=== PATIENT | male | born 1980 | race Caucasian/White ===

== ENCOUNTER 2020-08-11 13:08 | Emergency (ER) | payer BC, SELFPAY ==
[2020-08-11 14:16] VITALS: BP 149/93; PULSE 92; RESP 18; TEMP 36.9; O2SAT 100; BMI 26.5
--- NOTE | 2020-08-11 16:47 | XR_ITS ---
EXAMINATION: 1. LEFT ANKLE. 2. LEFT LEG. CLINICAL INFORMATION: Pain. Wound. COMPARISON: None TECHNIQUE: 1 left ankle. 3 views 2. Left leg. 2 views FINDINGS: 1. Left ankle. No fracture. No dislocation. Ankle mortise is congruent. 2. Left leg. No fracture or bone destruction. No abnormal periosteal reaction. There are spurs at the posterior calcaneus at the plantar surface of the calcaneus. No air in the soft tissues. There is no radiopaque foreign body. XR/XR tibia fibula LT 2V IMPRESSION: 1. Left ankle. No acute abnormality. 2. Left leg. No acute abnormality.
--- NOTE | 2020-08-11 16:47 | XR_ITS ---
EXAMINATION: 1. LEFT ANKLE. 2. LEFT LEG. CLINICAL INFORMATION: Pain. Wound. COMPARISON: None TECHNIQUE: 1 left ankle. 3 views 2. Left leg. 2 views FINDINGS: 1. Left ankle. No fracture. No dislocation. Ankle mortise is congruent. 2. Left leg. No fracture or bone destruction. No abnormal periosteal reaction. There are spurs at the posterior calcaneus at the plantar surface of the calcaneus. No air in the soft tissues. There is no radiopaque foreign body. XR/XR ankle LT min 3V IMPRESSION: 1. Left ankle. No acute abnormality. 2. Left leg. No acute abnormality.
[2020-08-11 18:43] LABS: MANUAL DIFF FLAG NO
[2020-08-11 18:46] LABS: Basophils Percent Auto 0.6 % (0-2); Eosinophils Absolute Auto 0.2 X10*3/uL (0.0-0.4); Eosinophils Percent Auto 2.6 % (0-4); Hematocrit 40.5 % (42-52); Hemoglobin 14.1 g/dl (14.0-18.0); Imm Gran Abs Auto 0.02 X10*3/uL (0.00-0.03); Imm Gran Pct Auto 0.3 % (0.0-0.4); Lymphocytes Absolute Auto 2.2 X10*3/uL (1.2-4.9); Lymphocytes Percent Auto 30.5 % (20-40); Mean Corpuscular HGB Conc 34.8 g/dl (31.0-36.0); Mean Corpuscular Hemoglobin 28.4 pg (27.0-33.0); Mean Corpuscular Volume 81.7 fL (80-98); Mean Platelet Volume 10.3 fL (9.4-12.4); Monocytes Absolute Auto 0.4 X10*3/uL (0.1-1.2); Monocytes Percent Auto 5.7 % (2-11); Neutrophils Absolute Auto 4.3 X10*3/uL (2.0-8.3); Neutrophils Percent Auto 60.3 % (45-73); Platelet Count 181 X10*3/uL (160-400); Red Blood Count 4.96 X10*6/uL (4.60-5.80); Red Cell Distribution Width 12.7 % (11.0-16.0); White Blood Count 7.2 X10*3/uL (4.8-10.8)
[2020-08-11 19:09] LABS: Alanine Aminotransferase 26 U/L (0-40); Alkaline Phosphatase 112 U/L (39-117); Anion Gap 12 (12-20); Aspartate Amino Transferase 17 U/L (5-37); Bilirubin Total 0.5 mg/dL (0.0-1.0); Blood Urea Nitrogen 10 mg/dL (9-16); Calcium 8.6 mg/dL (8.4-10.2); Carbon Dioxide 26 mmol/L (22-29); Chloride 104 mmol/L (96-108); Creatinine Clr Calc Pharmacy 130.9; Estimated Glomerular Filt Rate > 60; Glucose Random 288 mg/dL (60-115); Potassium 3.8 mmol/l (3.3-5.1); Sodium 138 mmol/L (135-145); Total Protein 7.4 g/dL (6.5-8.0)
--- NOTE | 2020-08-11 19:33 | ED_ITS ---
HPI - Extremity Injury (Lower) General Chief Complaint: Extremity Injury, Lower Stated Complaint: cut on lt hammond ?infection Time Seen by Provider: 08/11/20 16:47 Source: patient Mode of arrival: ambulatory Limitations: no limitations History of Present Illness HPI Narrative: 40-year-old male who reports he has a history of diabetes who presents with complaint of left ankle pain and left hammond redness/swelling for t he past 5 days. States he was going upstairs misstepped rolled his ankle and hit the front of the hammond on the stair trim causing abrasion which he subsequently scratched and now is red and swollen with pain. He denies any fever or chills. Denies any other injury. Onset (ago): day(s) (5 days ago ) Place: home Severity: moderate Relieving factors: nothing Exacerbating factors: nothing Context: direct blow Other symptoms: none Treatments prior to arrival: cold therapy and bandage Related Data Previous Rx's Medication Instructions Recorded cephalexin [Keflex] 500 mg PO Q8H 7 Days #21 cap 08/11/20 doxycycline monohydrate 100 mg PO BID 10 Days #20 cap 08/11/20 Allergies Allergy/AdvReac Type Severity Reaction Status Date / Time No Known Allergies Allergy Unverified 05/02/20 16:58 [No Known Allergies*] Review of Systems Review of Systems: Constitutional: No Weight loss, No Fever, No Chills, No Night Sweats, No Fatigue, No Malaise ENT/Mouth: No Hearing loss, No Ear Pain, No Nasal Congestion, No Sinus Pain, No Hoarseness, No sore throat, No Rhinorrhea Eyes: No Eye Pain, No Swelling, No Redness, No Foreign Body, No Discharge, No Vision Changes Cardiovascular: No Chest Pain, No SOB, No Dyspnea on Exertion, No Orthopnea, No Edema, No Palpitations Respiratory: No Cough, No Sputum, No Wheezing, No Smoke Exposure, No Dyspnea Gastrointestinal: No Nausea, No Vomiting, No Diarrhea, No Constipation, No abdominal Pain, No Hematochezia, No Melena Genitourinary: no irregular bleeding, No Dysuria, No Urinary Frequency, No Hematuria, No Urinary Incontinence, No Urgency, No Flank Pain Musculoskeletal: No joint pain, No Myalgias, No Joint Swelling, as noted in HPI Skin: No Skin Lesions, No rash Neuro: No Weakness, No Numbness, No Paresthesias, No Loss of Consciousness, No Dizziness, No Headache Psych: No Social Issues Heme/Lymph: No Bruising, No Bleeding,No Lymphadenopathy Endocrine: No Polyuria, No Polydipsia, No Temperature Intolerance Yes all othe r systems are reviewed and are negative [facility], [facility] Social History Social History Alcohol intake: never Smoking Status: Never smoker Use of substances other than those prescribed or required for medical reasons: No Advance Directives: No Advance Directives Information Provided: Yes Physical Exam Vital Signs: Vital Signs: Last Vital Signs Temp 98.5 F 08/11/20 14:16 Pulse 92 08/11/20 14:16 Resp 18 08/11/20 14:16 BP 149/93 H 08/11/20 14:16 Pulse Ox 100 08/11/20 14:16 Body Mass Index 26.5 Reviewed Const: General: cooperative and healthy appearing; No acute distress or intoxicated appearing Nutritional Appearance: average body habitus Orientation/consciousness: patient oriented x3 HENMT: Head: Yes normal to inspection Ears: hearing grossly normal bilaterally Eyes: General: appearance normal, both eyes and all related structures Visual Freeman: normal visual freeman by confrontation Neck: Neck: Yes normal visual inspection and No tender Thyroid: Thyroid normal Chest: Chest palpation & inspection: normal inspection of the chest Resp: Effort & Inspection: normal respiratory effort Auscultation: clear to auscultation bilaterally Cardio: Jugular venous distension: no JVD Rhythm: regular rhythm Heart sounds: S1 normal heart sound present and S2 normal heart sound present GI: Inspection: Yes normal to inspection Percussion: Yes normal to percussion Auscultation: normal bowel sounds : General: Yes no CVA tenderness Back/Spine/Pelvis: Back: no CVA tenderness Skin: General skin exam: no rashes or lesions noted Neuro: General: patient oriented x3 Extrem: Other: General: Yes normal to inspection Course Course Course Narrative: Labs without leukocytosis. Vitals stable. X-ray without any acute abnormality. AP of infected abrasion to the left hammond as well as left an kle sprain given crutches. Will RICE, start oral antibiotic given 1st dose here and recheck in 2 days. MDM - Extremity Injury (Lower) Lab Data Result diagrams: 08/11/20 18:32 08/11/20 18:32 Labs: Lab Results 08/11/20 08/11/20 08/11/20 Range/Units 18:32 18:32 18:32 WBC 7.2 (4.8-10.8) X10*3/uL RBC 4.96 (4.60-5.80) X10*6/uL Hgb 14.1 (14.0-18.0) g/dl Hct 40.5 L (42-52) % MCV 81.7 (80-98) fL MCH 28.4 (27.0-33.0) pg MCHC 34.8 (31.0-36.0) g/dl RDW 12.7 (11.0-16.0) % Plt Count 181 (160-400) X10*3/uL MPV 10.3 (9.4-12.4) fL Immature Gran % (Auto) 0.3 (0.0-0.4) % Neut % (Auto) 60.3 (45-73) % Lymph % (Auto) 30.5 (20-40) % [place] % (Auto) 5.7 (2-11) % Eos % (Auto) 2.6 (0-4) % Baso % (Auto) 0.6 (0-2) % Lymph # (Auto) 2.2 (1.2-4.9) X10*3/uL [place] # (Auto) 0.4 (0.1-1.2) X10*3/uL Eos # (Auto) 0.2 (0.0-0.4) X10*3/uL Baso # (Auto) 0.0 (0.0-0.2) X10*3/uL Abs Immat Gran (auto) 0.02 (0.00-0.03) X10*3/uL Absolute Neuts (auto) 4.3 (2.0-8.3) X10*3/uL Absolute Nucleated RBC 0.000 (0.0-0.012) X10*3/uL Nucleated RBC % (auto) 0.0 (0.0-0.2) /100WBC Sodium 138 (135-145) mmol/L Potassium 3.8 (3.3-5.1) mmol/l Chloride 104 (96-108) mmol/L Carbon Dioxide 26 (22-29) mmol/L Anion Gap 12 (12-20) BUN 10 (9-16) mg/dL Creatinine 0.79 (0.5-1.4) mg/dL Estim Creat Clear Calc 130.9 Estimated GFR > 60 Random Glucose 288 H (60-115) mg/dL Lactic Acid 1.0 (0.5-2.0) mmol/L Calcium 8.6 (8.4-10.2) mg/dL Total Bilirubin 0.5 (0.0-1.0) mg/dL AST 17 (5-37) U/L ALT 26 (0-40) U/L Alkaline Phosphatase 112 (39-117) U/L Total Protein 7.4 (6.5-8.0) g/dL Albumin 4.0 (3.5-5.0) g/dL Discharge Plan Discharge Clinical Impression: Ankle sprain and strain, Cellulitis of anterior lower leg Patient Disposition: Home, Self-Care Instructions: Ankle Sprain (ED), Cellulitis (ED) Additional Instructions: Warm compresses Take medication as prescribed Return in 2 days for recheck Return sooner if any concerns or worsening symptoms including worsening redness, swelling, pain, fever, discharge Thank you Prescriptions: New doxycycline monohydrate 100 mg capsule 100 mg PO BID 10 Days Qty: 20 RF: 0 cephalexin [Keflex] 500 mg capsule 500 mg PO Q8H 7 Days Qty: 21 RF: 0 Referrals: Dung Hall NP [Emergency Midlevel Provider] - 2 days (Wound check)
[2020-08-11] MEDS: cephALEXin 500 MG CAPSULE PO (19:37)
== END 2020-08-11 19:49 | disposition home or self-care (01) ==
PROVIDERS: Nurse Practitioner Primary Care; Emergency Provider Emergency Medicine; PCP Physician Assistant
DX: S93.402A Sprain of unspecified ligament of left ankle, initial encounter (principal); L03.116 Cellulitis of left lower limb; M25.572 Pain in left ankle and joints of left foot; X50.1XXA Overexertion from prolonged static or awkward postures, initial encounter; Y93.9 Activity, unspecified; Y92.9 Unspecified place or not applicable; Y99.9 Unspecified external cause status
CPT/HCPCS: 36415; 73590; 73610; 80053; 83605; 85025; 87040; 99284

== ENCOUNTER 2020-08-13 12:58 | Emergency (ER) | payer BC, SELFPAY ==
[2020-08-13 13:47] VITALS: BP 137/92; PULSE 100; RESP 14; TEMP 36.6; O2SAT 99; BMI 25.8
--- NOTE | 2020-08-13 14:29 | PC.NURSE ---
ALERT, AMBULATORY WITH STEADY GAIT, CHANGING IN TO [facility]OS[facility] FOR EXAM
--- NOTE | 2020-08-13 15:47 | ED.WOUNDLAC ---
HPI - Wound/Laceration General Chief Complaint: Wound/Laceration Stated Complaint: leg infection? Time Seen by Provider: 08/13/20 14:56 History of Present Illness HPI narrative: Patient was seen here 2 days ago for a cellulitis of the left lower leg returns for recheck and says it may have improved mildly but is still swollen and painful and red, he is taking his antibiotics he denies fever chills Related Data Previous Rx's Medication Instructions Recorded cephalexin [Keflex] 500 mg PO Q8H 7 Days #21 cap 08/11/20 doxycycline monohydrate 100 mg PO BID 10 Days #20 cap 08/11/20 Allergies Allergy/AdvReac Type Severity Reaction Status Date / Time No Known Allergies Allergy Unverified 05/02/20 16:58 [No Known Allergies*] Review of Systems Review of Systems: No fever no chills no dizziness no weakness no chest pain no shortness of breath no calf pain no calf swelling PMFSH Past Medical History Attestation statement: The following information was validated with the patient. Medical History (Updated 08/13/20 @ 16:11 by NURA Holman) NIDDY (non-insulin dependent diabetes mellitus in young) Social History Social History Alcohol intake: never Smoking Status: Never smoker Advance Directives: No Advance Directives Information Provided: Yes Physical Exam Vital Signs: Vital Signs: Last Vital Signs Temp 98 F 08/13/20 13:47 Pulse 100 08/13/20 13:47 Resp 14 08/13/20 13:47 BP 137/92 H 08/13/20 13:47 Pulse Ox 99 08/13/20 13:47 Body Mass Index 25.8 General appearance no acute distress Head is normocephalic atraumatic The neck is supple Respiratory no acute distress Extremities the left lower leg has an area of redness, mild induration, mild fluctuance with a scab at the center and some surrounding erythema, there is no calf tenderness or swelling there is no lymphangitis there is no impairment of range of motion at ankle or knee Course Course Course Narrative: Procedure note left anterior lower leg cellulitis/abscess Area is cleansed with Betadine Anesthesia 8 cc of 1% lidocaine A small incision was made and a small amount of pus and clear fluid drained along with some bloody fluid, packing was placed and dressing was placed and patient tolerated procedure well Discharge Plan Discharge Clinical Impression: Abscess Patient Disposition: Home, Self-Care Additional Instructions: Continue your antibiotics I drained a small amount of pus and watery fluid from the wound and hopefully it will get better quickly Return to ER in 2 days for packing removal and wound check Return any time for spreading redness, worse pain and swelling, fever, any sign of worsening infection or any concerns Prescriptions: No Action doxycycline monohydrate 100 mg capsule 100 mg PO BID 10 Days Qty: 20 RF: 0 cephalexin [Keflex] 500 mg capsule 500 mg PO Q8H 7 Days Qty: 21 RF: 0 Stand Alone Forms: Work/School Release Interventions: ED Discharge Assessment Last Done: 08/13/20 16:32 Discharge Date/Time: 08/13/20 16:30
[2020-08-13] MEDS: Lidocaine HCl 1 % MPF 5 ML VIAL SUBCUT ×2 (15:51)
== END 2020-08-13 16:30 | disposition home or self-care (01) ==
PROVIDERS: Emergency Provider Emergency Medicine Emergency Medical Services; PCP Physician Assistant
DX: L02.416 Cutaneous abscess of left lower limb (principal); M79.605 Pain in left leg; Z79.899 Other long term (current) drug therapy
CPT/HCPCS: 10060; 99283; 99284

== ENCOUNTER 2020-08-15 09:40 | Emergency (ER) | payer BC, SELFPAY ==
[2020-08-15 09:46] VITALS: BP 138/87; PULSE 100; RESP 18; TEMP 36.6; O2SAT 100; BMI 25.8
--- NOTE | 2020-08-15 09:59 | ED.RECABL ---
HPI - Recheck/Abnormal Lab/Rx General Chief Complaint: Skin/Abscess/Foreign Body Stated Complaint: wound recheck Time Seen by Provider: 08/15/20 09:57 Source: patient Mode of arrival: ambulatory Limitations: no limitations History of Present Illness HPI narrative: Here for wound recheck feels better. Here to get packing removed which he has placed 2 days ago. States the swelling and redness has decreased. He is still taking Keflex and doxycycline with additional 6 days left. MD complaint: wound re-check Initial visit for: abscess Symptoms since prior visit: improved Associated symptoms: none Treatments prior to arrival: heat therapy and dressings Related Data Previous Rx's Medication Instructions Recorded cephalexin [Keflex] 500 mg PO Q8H 7 Days #21 cap 08/11/20 doxycycline monohydrate 100 mg PO BID 10 Days #20 cap 08/11/20 Allergies Allergy/AdvReac Type Severity Reaction Status Date / Time No Known Allergies Allergy Verified 08/15/20 09:48 [No Known Allergies*] Review of Systems Review of Systems: Constitutional: No Weight loss, No Fever, No Chills, No Night Sweats, No Fatigue, No Malaise ENT/Mouth: No Hearing loss, No Ear Pain, No Nasal Congestion, No Sinus Pain, No Hoarseness, No sore throat, No Rhinorrhea, No Swallowing Difficulty Eyes: No Eye Pain, No Swelling, No Redness, No Foreign Body, No Discharge, No Vision Changes Cardiovascular: No Chest Pain, No SOB, No Dyspnea on Exertion, No Orthopnea, No Edema, No Palpitations Respiratory: No Cough, No Sputum, No Wheezing, No Smoke Exposure, No Dyspnea Gastrointestinal: No abdominal Pain Genitourinary: No Dysuria Musculoskeletal: No joint pain, No Myalgias, No Joint Swelling Skin: No Skin Lesions, No rash Neuro: No Weakness, No Numbness, No Paresthesias, No Loss of Consciousness Psych: No Social Issues Heme/Lymph: No Bruising, No Bleeding,No Lymphadenopathy Endocrine: No Polyuria, No Polydipsia, No Temperature Intolerance Yes all other systems are reviewed and are negative [facility] Past Medical History Medical History (Updated 08/15/20 @ 10:12 by Dung Hall NP) NIDDY (non-insulin dependent diabetes mellitus in young) Social History Social History Alcohol intake: never Smoking Status: Never smoker Advance Directives: No Advance Directives Information Provided: No Physical Exam Vital Signs: Vital Signs: Last Vital Signs Temp 97.8 F 08/15/20 09:46 Pulse 100 08/15/20 09:46 Resp 18 08/15/20 09:46 BP 138/87 08/15/20 09:46 Pulse Ox 100 08/15/20 09:46 Body Mass Index 25.8 Reviewed Const: General: cooperative and healthy appearing; No acute distress or intoxicated appearing Nutritional Appearance: average body habitus Orientation/consciousness: patient oriented x3 Resp: Auscultation: clear to auscultation bilaterally Cardio: Rate: regular rate Rhythm: regular rhythm Heart sounds: S1 normal heart sound present and S2 normal heart sound present : General: Yes no CVA tenderness Back/Spine/Pelvis: Back: no CVA tenderness Skin: General skin exam: no rashes or lesions noted Neuro: General: patient oriented x3 Extrem: Other: General: Yes normal to inspection Course Course Course Narrative: Here for recheck reports feels much better the redness and swelling has significantly decreased. He is currently on p.o. antibiotics with 6 days remaining. No fever, chills. Again he overall reports feeling better and comparison to previous evaluation does appear to be getting better with retracting erythema. Advise for wound center follow-up given his history. Return instructions provided. Discharge Plan Discharge Clinical Impression: Visit for wound check Patient Disposition: Home, Self-Care Instructions: Abscess Follow-up (ED) Additional Instructions: Warm compresses Wash with soap and water Continue take antibiotic as prescribed Return if any worsening in symptoms or concerns Otherwise follow-up with her primary care doctor/wound care at [facility] for sequential monitoring Thank you Follow-up in the next 1 week [facility] [phone] [facility] [address] [place] [address] Prescriptions: No Action doxycycline monohydrate 100 mg capsule 100 mg PO BID 10 Days Qty: 20 RF: 0 cephalexin [Keflex] 500 mg capsule 500 mg PO Q8H 7 Days Qty: 21 RF: 0
== END 2020-08-15 10:24 | disposition home or self-care (01) ==
PROVIDERS: Emergency Provider Emergency Medicine Emergency Medical Services; PCP Physician Assistant
DX: Z48.00 Encounter for change or removal of nonsurgical wound dressing (principal)
CPT/HCPCS: 99283

== ENCOUNTER 2021-01-10 06:39 | Outpatient (REF) | payer OTHER, SELFPAY ==
--- NOTE | ~2021-01-10 | XR_ITS ---
EXAMINATION: XR KNEE, RIGHT CLINICAL INFORMATION: Pain. COMPARISON: None TECHNIQUE: Four views of the right knee. FINDINGS: Bones and soft tissues are normal. No fracture or dislocation. There is a minimal joint effusion. Alignment is anatomic. An enthesophyte arises from the upper pole of the patella. Joint spaces are well maintained. No abnormal soft tissue calcification. XR/XR knee LT 4V IMPRESSION: A minimal right knee joint effusion is seen. The examination is otherwise unremarkable. EXAMINATION: XR KNEE, LEFT CLINICAL INFORMATION: Pain. COMPARISON: None TECHNIQUE: AP, lateral, tunnel, and sunrise views of the left knee. FINDINGS: Bones and soft tissues are normal. No fracture or dislocation. There is a minimal joint effusion. Alignment is anatomic. Joint spaces are well maintained. An enthesophyte arises from the upper pole of the patella. No abnormal soft tissue calcification. IMPRESSION: A minimal left knee joint effusion is seen. The examination is otherwise unremarkable.
--- NOTE | ~2021-01-10 | XR_ITS ---
EXAMINATION: XR KNEE, RIGHT CLINICAL INFORMATION: Pain. COMPARISON: None TECHNIQUE: Four views of the right knee. FINDINGS: Bones and soft tissues are normal. No fracture or dislocation. There is a minimal joint effusion. Alignment is anatomic. An enthesophyte arises from the upper pole of the patella. Joint spaces are well maintained. No abnormal soft tissue calcification. XR/XR knee RT 4V IMPRESSION: A minimal right knee joint effusion is seen. The examination is otherwise unremarkable. EXAMINATION: XR KNEE, LEFT CLINICAL INFORMATION: Pain. COMPARISON: None TECHNIQUE: AP, lateral, tunnel, and sunrise views of the left knee. FINDINGS: Bones and soft tissues are normal. No fracture or dislocation. There is a minimal joint effusion. Alignment is anatomic. Joint spaces are well maintained. An enthesophyte arises from the upper pole of the patella. No abnormal soft tissue calcification. IMPRESSION: A minimal left knee joint effusion is seen. The examination is otherwise unremarkable.
[2021-01-10 07:23] LABS: Hematocrit 43.6 % (42-52); Hemoglobin 15.3 g/dl (14.0-18.0); Mean Corpuscular HGB Conc 35.1 g/dl (31.0-36.0); Mean Corpuscular Hemoglobin 28.9 pg (27.0-33.0); Mean Corpuscular Volume 82.3 fL (80-98); Mean Platelet Volume 10.7 fL (9.4-12.4); Platelet Count 155 X10*3/uL (160-400); Red Cell Distribution Width 13.1 % (11.0-16.0); White Blood Count 6.7 X10*3/uL (4.8-10.8)
[2021-01-10 07:29] LABS: Estimated Average Glucose 289 mg/dL; Hemoglobin A1c % 11.7 %
[2021-01-10 07:53] LABS: Alanine Aminotransferase 27 U/L (0-40); Albumin Level 4.2 g/dL (3.5-5.0); Alkaline Phosphatase 101 U/L (39-117); Aspartate Amino Transferase 21 U/L (5-37); Bilirubin Total 0.9 mg/dL (0.0-1.0); Blood Urea Nitrogen 14 mg/dL (9-16); Calcium 9.3 mg/dL (8.4-10.2); Chloride 100 mmol/L (96-108); Cholesterol 149 mg/dL; Estimated Glomerular Filt Rate > 60; Glucose Fasting 415 mg/dL (60-99); HDL Cholesterol 30 mg/dL; LDL Cholesterol Calculated 46 mg/dl; Potassium 4.1 mmol/L (3.3-5.1); Sodium 137 mmol/L (135-145); Total Protein 7.5 g/dL (6.5-8.0); Triglycerides 368 mg/dL
[2021-01-10 07:57] LABS: Anion Gap 15 (12-20); Carbon Dioxide 27 mmol/L (22-29)
[2021-01-10 07:58] LABS: TSH reflex Free T4 1.35 uIU/mL (0.32-4.0)
== END 2021-01-10 06:40 | disposition home or self-care (01) ==
LOC: HO.LAB 06:39
PROVIDERS: PCP Physician Assistant; Visit Provider Physician Assistant
DX: M25.561 Pain in right knee (principal); M25.562 Pain in left knee; G89.29 Other chronic pain; I10 Essential (primary) hypertension; E11.65 Type 2 diabetes mellitus with hyperglycemia
CPT/HCPCS: 36415; 73564; 80053; 80061; 83036; 84443; 85027

== ENCOUNTER → 2021-01-15 08:46 | Outpatient (BNVA) | payer OTHER, SELFPAY | PROVIDERS: PCP Physician Assistant; Visit Provider Physician Assistant ==

== ENCOUNTER 2021-02-13 15:57 | Outpatient (RCR) | payer OTHER, SELFPAY ==
--- NOTE | 2021-02-13 18:22 | MHC.PT.EP ---
[facility] [place] [facility] [place] Office [place] Office [address] Italia Hernandez [address] [phone] F: [phone] F: [phone] F: [phone] F: [phone] Physical Therapy Plan of Care Date of Evaluation: Date of Surgery: N/A Diagnosis: Patellofemoral disorders bilaterally Assessment: Pt is a 40yo M who presents to PT with bilateral knee pain R>L with reports of instability/buckling. He saw ortho who provided bilateral genumedi knee braces for impact activities and pt reports no knee buckling with use of brace. Pt presents today with current impairments in pain, strength, instability, muscle length, soft tissue restrictions, mobility, and body mechanics. He is limited functionally by prolonged standing, ambulation, stairs, kneeling, and squatting. He is an excellent candidate for skilled PT services to address current impairments in order to facilitate return to PLOF. Frequency and Duration: The patient will be seen 2x/week, 4 weeks Short Term Goals: Pt will be I with HEP to promote self management of symptoms Pt will demonstrate improved body mechanics with squatting with minimal cues Pt will improve bilateral hip ABD strength by 1/2 grade Prison Goals: Pt will tolerate standing >30 min without evidence of knee buckling consistently Pt will tolerate kneeling >30 min to assist with work with pain < 2/10 Treatment Plan: Modalities to reduce pain, spasms and effusion. Manual therapy to restore motion and function. Therapeutic exercise to improve strength and flexibility. Neuromuscular re-education for posture and balance. Therapeutic activities to return to functional activities of daily living. Electronically signed by: Caridad Noel, PT, DPT Please sign and return to therapist. Thank you for your referral.
--- NOTE | 2021-03-24 14:39 | MHC.PT.DC ---
[facility] [place] Office [place] Office [place] Office [address] Italia Hernandez [address] [phone] F: [phone] F: [phone] F: [phone] F: [phone] Physical Therapy Discharge Report Diagnosis: Patellofemoral disorders bilaterally Date of Surgery: N/A Date of Evaluation: 02/13/21 Date of Discharge: Treatments to Date: 1 Cancellations to Date: No Shows to Date: Discharge Status: Insurance Declined Tx Discharge Summary: Pt attended initial PT evaluation however after evaluation pt no longer had insurance. Pt unable to attend remaining sessions and is being D/C from skilled PT services. Pt current level of function unknown at this time. Electronically signed by: Caridad Noel, PT, DPT Please sign and return to therapist. Thank you for your referral.
== END 2021-03-24 14:40 | disposition home or self-care (01) ==
LOC: HO.PT 15:57
PROVIDERS: PCP Physician Assistant; Visit Provider Physician Assistant
DX: M22.2X1 Patellofemoral disorders, right knee (principal); M22.2X2 Patellofemoral disorders, left knee
CPT/HCPCS: 97110; 97161

== ENCOUNTER 2021-10-27 06:00 | Outpatient (REF) | payer OTHER, SELFPAY ==
[2021-10-27 07:24] LABS: Hematocrit 42.4 % (42.0-52.0); Hemoglobin 14.4 g/dl (14.0-18.0); Mean Corpuscular Hemoglobin 28.2 pg (27.0-33.0); Mean Platelet Volume 10.9 fL (9.4-12.4); Platelet Count 163 X10*3/uL (160-400); Red Blood Count 5.11 X10*6/uL (4.60-5.80); Red Cell Distribution Width 12.9 % (11.0-16.0); White Blood Count 6.8 X10*3/uL (4.8-10.8)
[2021-10-27 08:15] LABS: Alanine Aminotransferase 24 U/L (0-40); Alkaline Phosphatase 115 U/L (39-117); Anion Gap 13 (12-20); Aspartate Amino Transferase 21 U/L (5-37); Bilirubin Total 0.6 mg/dL (0.0-1.0); Blood Urea Nitrogen 13 mg/dL (9-16); Calcium 9.3 mg/dL (8.4-10.2); Carbon Dioxide 26 mmol/L (22-29); Chloride 104 mmol/L (96-108); Cholesterol 130 mg/dL; Estimated Glomerular Filt Rate > 60; Glucose Fasting 298 mg/dL (60-99); HDL Cholesterol 31 mg/dL; LDL Cholesterol Calculated 70 mg/dl; Sodium 139 mmol/L (135-145); Total Protein 7.6 g/dL (6.5-8.0); Triglycerides 149 mg/dL
[2021-10-27 08:38] LABS: TSH reflex Free T4 1.51 uIU/mL (0.32-4.0)
== END 2021-10-27 06:01 | disposition home or self-care (01) ==
LOC: HO.LAB 06:00
PROVIDERS: PCP Physician Assistant; Visit Provider Physician Assistant
DX: E11.65 Type 2 diabetes mellitus with hyperglycemia (principal); I10 Essential (primary) hypertension
CPT/HCPCS: 36415; 80053; 80061; 84443; 85027

== ENCOUNTER 2021-10-28 15:38 | Outpatient (REF) | payer OTHER, SELFPAY ==
--- NOTE | ~2021-10-28 | XR_ITS ---
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 COMPARISON: None. TECHNIQUE: AP, lateral, and oblique views of the right foot. FINDINGS: There is a soft tissue ulceration along the lateral foot lateral to the 5th MTP joint. There is no periosteal erosion or thickening to suspect any osteomyelitis. There is minimal superficial gas likely secondary to ulceration. There is mild soft tissue swelling. XR/XR foot RT 2V IMPRESSION: No evidence of osteomyelitis. Soft tissue irregularity and minimal superficial soft tissue gas suggestive of ulceration.
== END 2021-10-28 15:39 | disposition home or self-care (01) ==
LOC: HO.XRAY 15:38
PROVIDERS: PCP Physician Assistant; Visit Provider Physician Assistant
DX: L97.512 Non-pressure chronic ulcer of other part of right foot with fat layer exposed (principal)
CPT/HCPCS: 73620

== ENCOUNTER 2021-11-04 09:06 | Outpatient (RCR) | payer OTHER, SELFPAY | END 2022-01-26 11:43 | disposition home or self-care (01) | LOC: HO.WCC 09:06 | PROVIDERS: PCP Physician Assistant; Visit Provider Physician Assistant | DX: Z09 Encounter for follow-up examination after completed treatment for conditions other than malignant neoplasm (principal); L84 Corns and callosities; E11.9 Type 2 diabetes mellitus without complications; Z86.31 Personal history of diabetic foot ulcer | CPT/HCPCS: 11042; 11045; 97597; 99212 ==

== ENCOUNTER 2021-11-28 09:39 | Outpatient (REF) | payer OTHER, SELFPAY ==
--- NOTE | ~2021-11-28 | FL_ITS ---
EXAMINATION: XR FL UPPER GI WITH AIR CLINICAL INFORMATION: Dysphasia, pharyngeal phase. COMPARISON: None TECHNIQUE: Air-contrast upper GI examination. FINDINGS: Patient swallowed thin and thick barium without difficulty. No nasopharyngeal reflux or tracheal aspiration identified. No Zenker's diverticulum is seen. There is a mild nonobstructive kink seen within the distal cervical esophagus with some mild narrowing in the AP dimension but through which half-inch diameter barium tablet passed without difficulty. No esophageal mucosal abnormality is identified. There is normal esophageal motility without evidence of tertiary contractions. No persistent stricture is seen. There is free gastroesophageal reflux present to the level of the thoracic inlet during the study. No hiatal hernia. The stomach demonstrates normal distensibility without evidence of abnormal mass or ulceration. There was no delay in gastric emptying. The duodenal bulb and sweep appeared unremarkable. FLUOROSCOPY TIME: 1.5 minutes. DOSE AREA PRODUCT: 8.650 Gy-cm2 (gallegos-centimeter squared). FL/FL upper GI w air IMPRESSION: Free gastroesophageal reflux to the level of the thoracic inlet.
== END 2021-11-28 09:40 | disposition home or self-care (01) ==
LOC: HO.XRAY 09:39
PROVIDERS: PCP Physician Assistant; Visit Provider Physician Assistant
DX: R13.13 Dysphagia, pharyngeal phase (principal)
CPT/HCPCS: 74246

== ENCOUNTER 2023-01-13 08:31 | Emergency (ER) | payer OTHER, SELFPAY ==
--- NOTE | ~2023-01-13 | XR_ITS ---
EXAMINATION: XR FOOT, LEFT CLINICAL INFORMATION: Pain and swelling third and fifth phalanges. Question osteomyelitis. COMPARISON: None available. TECHNIQUE: AP, lateral, and oblique views of the left foot. FINDINGS: On the provided imaging there is no evidence of acute fracture or dislocation of the left foot. Joint spaces are maintained. No erosive changes are identified. No significant localized osteopenia is present. No radiopaque foreign bodies identified. There are prominent Achilles and plantar tendon calcaneal spurs present. XR/XR foot LT min 3V IMPRESSION: No evidence of acute fracture of the left foot. No specific findings to suggest acute osteomyelitis. Calcaneal spurs.
[2023-01-13 08:35] VITALS: BP 132/100; PULSE 102; RESP 18; TEMP 36.4; O2SAT 100; BMI 26.5
--- NOTE | 2023-01-13 08:45 | ED_ITS ---
HPI - General Adult General Chief complaint: Skin/Abscess/Foreign Body Stated complaint: L foot wound Time Seen by Provider: 01/13/23 08:44 Source: patient Mode of arrival: ambulatory Limitations: no limitations History of Present Illness HPI narrative: Patient is a 42 year old assigned male at with a history of HTN and DM presenting to the emergency department today with left toe redness and swelling. Patient states that 2 days ago he noticed he had blisters on his left 3rd and 4th toes. He states that later that day, the blisters ruptured and ever since they have been red and swollen. Patient states that he has not yet been evaluated for this and is not on any medications. Patient denies any dizziness, lightheadedness, abdominal pain, nausea, vomiting, fever, chills, blurry vision, double vision, loss of vision, chest pain, difficulty breathing, shortness of breath, back pain, night sweats, pain with urination, increased urinary frequency, increased urinary urgency, blood in his urine or stool, syncope or a near syncopal episode, recent trauma or falls, bowel incontinence, bladder incontinence, bowel retention, bladder retention, or any other complaints at this time. Onset (ago): day(s) (2) Location: left and lower extremity Severity: mild Relieving factors: none Exacerbating factors: none Associated symptoms: denies other symptoms Treatments prior to arrival: none Related Data Previous Rx's Medication Instructions Recorded sildenafil 100 mg tablet 100 mg PO DAILY 7 days #7 tabs 12/30/20 flash glucose scanning reader #1 ea 02/11/21 (FreeStyle Elaine 14 Day [place]) flash glucose sensor (FreeStyle #1 ea 10/28/21 Elaine 2 Sensor kit) silver sulfadiazine 1 % topical 1 appl topical DAILY 30 days #50 10/28/21 cream (Silvadene) grams omeprazole 40 mg capsule,delayed 40 mg PO DAILY 30 days #30 caps 12/01/21 release hydroxyzine HCl 10 mg tablet 10 mg PO ONCE PRN panic attack 14 07/30/22 days #14 tabs insulin glargine 100 unit/mL (3 28 unit (0.28 mL) subcut QPM 30 07/30/22 mL) subcutaneous pen (Lantus days #15 mL Solostar U-100 Insulin) pen needle, diabetic 32 gauge x #100 ea 07/30/22 (BD Ultra-Fine Lula Pen Needle) pioglitazone 30 mg tablet (Actos) 30 mg PO DAILY #30 tabs 07/30/22 lisinopril 5 mg tablet 5 mg PO DAILY #30 tabs 08/24/22 sertraline 50 mg tablet 50 mg PO DAILY 30 days #30 tabs 08/24/22 cephalexin 500 mg capsule 500 mg PO Q6H 7 days #28 caps 01/13/23 doxycycline hyclate 100 mg tablet 100 mg PO BID 7 days #14 tabs 01/13/23 Allergies Allergy/AdvReac Type Severity Reaction Status Date / Time metformin AdvReac Intermediate GI side Verified 07/30/22 15:29 effects Review of Systems Constitutional: Constitutional: Reports no additional constitutional complaints, Denies chills, Denies fever(s) and Denies night sweats Eyes: Eyes: Reports no additional eye complaints, Denies blurry vision, Denies change in vision, Denies diplopia, Denies eye discharge, Denies loss of vision and Denies eye pain ENT: Denies dizziness Cardiovascular: Cardiovascular: Reports no additional cardiovascular complaints, Denies chest pain, Denies lightheadedness, Denies Loss of Consciousness and Denies dyspnea Respiratory: Respiratory: Reports no additional respiratory complaints and Denies dyspnea Gastrointestinal: Gastrointestinal: Reports no additional gastrointestinal complaints, Denies abdominal pain, Denies melena, Denies hematochezia, Denies change in bowel habits and Denies change in stool character Genitourinary: Genitourinary: Reports no additional male genitourinary complaints, Denies hematuria, Denies oliguria, Denies difficulty urinating, Denies dysuria, Denies urinary frequency, Denies urinary hesitancy, Denies urinary incontinence and Denies urinary urgency Musculoskeletal: Musculoskeletal: Reports no additional musculoskeletal complaints, Denies numbness and Denies tingling Integumentary/Breasts: Comments: wound present to the left 3rd and 4th toes Neurologic: Denies dizziness, Denies loss of vision, Denies numbness and Denies tingling Psychiatric: Psychiatric: Reports no additional psychiatric complaints Endocrine: Endocrine: Reports no additional endocrine complaints Hematologic/Lymphatic: Hematologic/Lymphatic: Reports no additional hematologic/lymphatic complaints Allergic/Immunologic: Allergic/Immunologic: Reports no additional allergic/ immunologic complaints PMFSH Past Medical History Attestation statement: The following information was validated with the patient. Source: old records reviewed and nursing notes reviewed Medical History NIDDY (non-insulin dependent diabetes mellitus in young) Surgical History History of appendectomy History of hernia surgery Family History Family History Mother Diabetes High blood pressure Social History Social History Housing: House Alcohol intake: current Alcohol intake frequency: holidays/special occasions only Patient Tobacco Use Status: Never used Tobacco Advance Directives: No Advance Directives Information Provided: Yes service: No Current occupational status: employed Current occupation: right handed Cognitive needs: No Hearing needs: No Vision needs: No Physical Exam ED Vital Signs: Vital Signs - 24 hr 01/13/23 08:35 01/13/23 11:03 Temperature 97.6 F 97.4 F Pulse Rate 102 H 91 Respiratory Rate 18 16 Blood Pressure 132/100 H 129/95 H Pulse Oximetry 100 98 Oxygen Delivery Method Room Air Room Air BMI result Body Mass Index 26.5 Const General: cooperative, no acute distress, alert and awake Nutritional Appearance: well nourished Orientation/consciousness: patient oriented x3 Limitations: no limitations HENMT Head: Yes normal to inspection and Yes atraumatic Ears: hearing grossly normal bilaterally and external ears normal General nose exam: Normal external nose present, no nasal discharge noted and no epistaxis Face and sinus: Yes normal facial exam, No abrasion and No laceration Mouth: Normal oral and palatal mucosa present, no drooling and no muffled voice Eyes General: appearance normal, both eyes and all related structures Periorbital: periorbital findings normal Eyelids: Yes eyelids normal Conjunctivae: conjunctivae normal Pupils: Equal, round and reactive pupils present EOM: EOMs intact bilaterally Neck Neck: Yes normal visual inspection, Yes full ROM and Yes no lymphadenopathy Chest Chest palpation & inspection: normal inspection of the chest Resp Effort & Inspection: normal respiratory effort and able to speak in complete sentences GI Inspection: Yes normal to inspection Neuro General: patient oriented x3 and moves all extremities Cranial nerves: Yes Equal, round and reactive pupils present Cognition (Neuro): normal cognition Motor exam (neuro): 5/5 motor strength present throughout Sensory Exam: Normal double simultaneous stimulation for sensation Coordination: [id number] test normal Extrem Other: General: Yes full ROM and Yes capillary refill normal Psych Appearance: grossly normal Mental Status: mental status grossly normal Affect: normal affect Attitude: cooperative Thought process: Normal thought process present Thought content: Normal thought content present Insight: Good insight present (Psych) Medications Administered Discontinued Medications Generic Name Dose Route Start Last Admin Trade Name Freq PRN Reason Stop Dose Admin Piperacillin Sod/Tazobactam 50 mls @ 100 mls/hr 01/13/23 08:48 01/13/23 09:23 Sod 3.375 gm/ Sodium Chloride IV 01/13/23 09:17 100 mls/hr ONCE ONE Administration Medical Decision Making Medical Decision Making [facility] Narrative: Patient is a 42 year old assigned male at with a history of HTN and DM presenting to the emergency department today with left toe infection. Patient's physical exam was as noted in the physical exam portion of this chart. Patient's blood work showed an elevated ESR of 28 and an elevated CRP of 3.15. Patient's left foot x-ray showed no acute process. I explained my physical exam findings as well as all test results to the patient. I answered all questions asked by the patient. Patient received a dose of IV zosyn while in the department. Given the patient has not trialed out patient therapy and the cellulitis is not severe, will start the patient on out patient oral antibiotics and give the patient strict return precautions. I stressed the importance of the patient taking his medication as prescribed. I stressed the importance of the patient following up with his primary care provider and the wound center. I stressed the importance of the patient returning to the emergency department immediately if his symptoms were to worsen or if he were to develop any dizziness, shortness of breath, difficulty breathing, chest pain, blurry vision, loss of vision, nausea, vomiting, abdominal pain, fever, chills, back pain, or any other complaints. Patient verbalized agreement and understanding with this treatment plan and discharge. Differential Diagnosis Differential Diagnoses: The differential diagnosis associated with the presentation includes left toe cellulitis Admission/Observation Consideration of admission/observation: Escalation of care including admission/observation considered Patient would have been admitted to the hospital had his work up had any findings where hospital admission was appropriate. Lab Data [facility] Lab Attestation statement: I reviewed the patient's lab results. 01/13/23 09:17 01/13/23 09:17 Labs: Lab Results 01/13/23 01/13/23 01/13/23 Range/Units 09:17 09:17 09:17 WBC 6.9 (4.8-10.8) X10*3/uL RBC 5.03 (4.60-5.80) X10*6/uL Hgb 14.4 (14.0-18.0) g/dl Hct 41.1 L (42.0-52.0) % MCV 81.7 (80.0-98.0) fL MCH 28.6 (27.0-33.0) pg MCHC 35.0 (31.0-36.0) g/dl RDW 12.8 (11.0-16.0) % Plt Count 127 L (160-400) X10*3/uL MPV 10.6 (9.4-12.4) fL Immature Gran % (Auto) 0.3 (0.0-0.4) % Neut % (Auto) 68.4 (45-73) % Lymph % (Auto) 22.2 (20-40) % [place] % (Auto) 6.7 (2-11) % Eos % (Auto) 2.0 (0-4) % Baso % (Auto) 0.4 (0-2) % Lymph # (Auto) 1.5 (1.2-4.9) X10*3/uL [place] # (Auto) 0.5 (0.1-1.2) X10*3/uL Eos # (Auto) 0.1 (0.0-0.4) X10*3/uL Baso # (Auto) 0.0 (0.0-0.2) X10*3/uL Abs Immat Gran (auto) 0.02 (0.00-0.03) X10*3/uL Absolute Neuts (auto) 4.7 (2.0-8.3) x10*3/uL Absolute Nucleated RBC 0.000 (0.0-0.012) X10*3/uL Nucleated RBC % (auto) 0.0 (0.0-0.2) /100WBC ESR 28 H (0-15) MM/HR Sodium 136 (135-145) mmol/L Potassium 4.2 (3.3-5.1) mmol/L Chloride 102 (96-108) mmol/L Carbon Dioxide 26 (22-29) mmol/L Anion Gap 12 (12-20) BUN 21 H (9-16) mg/dL Creatinine 0.94 (0.5-1.4) mg/dL Estim Creat Clear Calc 107.8 Estimated GFR > 60 Random Glucose 389 H* (60-115) mg/dL Lactic Acid (0.5-2.0) mmol/L Calcium 9.3 (8.4-10.2) mg/dL Total Bilirubin 0.9 (0.0-1.0) mg/dL AST 18 (5-37) U/L ALT 25 (0-40) U/L Alkaline Phosphatase 132 H (39-117) U/L C-Reactive Protein 3.15 H (< or = 0.50) mg/dL Total Protein 7.3 (6.5-8.0) g/dL Albumin 3.9 (3.5-5.0) g/dL 01/13/23 Range/Units 09:17 WBC (4.8-10.8) X10*3/uL RBC (4.60-5.80) X10*6/uL Hgb (14.0-18.0) g/dl Hct (42.0-52.0) % MCV (80.0-98.0) fL MCH (27.0-33.0) pg MCHC (31.0-36.0) g/dl RDW (11.0-16.0) % Plt Count (160-400) X10*3/uL MPV (9.4-12.4) fL Immature Gran % (Auto) (0.0-0.4) % Neut % (Auto) (45-73) % Lymph % (Auto) (20-40) % [place] % (Auto) (2-11) % Eos % (Auto) (0-4) % Baso % (Auto) (0-2) % Lymph # (Auto) (1.2-4.9) X10*3/uL [place] # (Auto) (0.1-1.2) X10*3/uL Eos # (Auto) (0.0-0.4) X10*3/uL Baso # (Auto) (0.0-0.2) X10*3/uL Abs Immat Gran (auto) (0.00-0.03) X10*3/uL Absolute Neuts (auto) (2.0-8.3) x10*3/uL Absolute Nucleated RBC (0.0-0.012) X10*3/uL Nucleated RBC % (auto) (0.0-0.2) /100WBC ESR (0-15) MM/HR Sodium (135-145) mmol/L Potassium (3.3-5.1) mmol/L Chloride (96-108) mmol/L Carbon Dioxide (22-29) mmol/L Anion Gap (12-20) BUN (9-16) mg/dL Creatinine (0.5-1.4) mg/dL Estim Creat Clear Calc Estimated GFR Random Glucose (60-115) mg/dL Lactic Acid 1.0 (0.5-2.0) mmol/L Calcium (8.4-10.2) mg/dL Total Bilirubin (0.0-1.0) mg/dL AST (5-37) U/L ALT (0-40) U/L Alkaline Phosphatase (39-117) U/L C-Reactive Protein (< or = 0.50) mg/dL Total Protein (6.5-8.0) g/dL Albumin (3.5-5.0) g/dL Independent Interpretation I performed an independent interpretation of an: Plain X-Ray Interpretation: My interpretation is in agreement with the radiologist's impression of this imaging study. EXAMINATION: XR FOOT, LEFT CLINICAL INFORMATION: Pain and swelling third and fifth phalanges. Question osteomyelitis.? COMPARISON: None available.? TECHNIQUE: AP, lateral, and oblique views of the left foot. FINDINGS: On the provided imaging there is no evidence of acute fracture or dislocation of the left foot. Joint spaces are maintained. No erosive changes are identified. No significant localized osteopenia is present. No radiopaque foreign bodies identified. There are prominent Achilles and plantar tendon calcaneal spurs present. XR/XR foot LT min 3V IMPRESSION: No evidence of acute fracture of the left foot. ? No specific findings to suggest acute osteomyelitis. ? Calcaneal spurs. Dictated By: Don Sanabria MD Signed By: Electronically signed by Don Sanabria MD 01/13/23 1009 Discharge Plan Discharge Clinical Impression: Infection of toe Patient Disposition: Home, Self-Care Instructions: Cellulitis (DC) Additional Instructions: Follow up with your primary care provider and the wound center. Return to the emergency department immediately if your symptoms worsen or if you develop any dizziness, shortness of breath, difficulty breathing, chest pain, blurry vision, loss of vision, nausea, vomiting, abdominal pain, fever, chills, back pain, or any other complaints. Prescriptions: New cephalexin 500 mg capsule 500 mg PO Q6H 7 Days Qty: 28 0RF doxycycline hyclate 100 mg tablet 100 mg PO BID 7 Days Qty: 14 0RF No Action omeprazole 40 mg capsule,delayed release(DR/EC) 40 mg PO DAILY 30 Days Qty: 30 2RF lisinopril 5 mg tablet 5 mg PO DAILY Qty: 30 3RF sertraline 50 mg tablet 50 mg PO DAILY 30 Days Qty: 30 0RF sildenafil 100 mg tablet 100 mg PO DAILY 7 Days Qty: 7 0RF (DME) FreeStyle Elaine 14 Day [place] Misc See Rx Instructions .ROUTE .MEDSUPPLY Qty: 1 0RF Rx Instructions: As directed silver sulfadiazine [Silvadene] 1 % cream 1 appl topical DAILY 30 Days Qty: 50 0RF Rx Instructions: apply a 1.5 mm thickness (DME) FreeStyle Elaine 2 Sensor Kit See Rx Instructions .ROUTE .MEDSUPPLY Qty: 1 3RF Rx Instructions: As directed Lantus Solostar U-100 Insulin 100 unit/mL (3 mL) insulin pen 28 unit subcut QPM 30 Days Qty: 15 3RF (DME) pen needle, diabetic [BD Ultra-Fine Lula Pen Needle] 32 gauge x 5/32 needle See Rx Instructions .ROUTE .MEDSUPPLY Qty: 100 2RF Rx Instructions: As directed pioglitazone [Actos] 30 mg tablet 30 mg PO DAILY Qty: 30 3RF hydroxyzine HCl 10 mg tablet 10 mg PO ONCE PRN (Reason: panic attack) 14 Days Qty: 14 0RF Referrals: [facility] [Provider Group] (Call to establish and follow up with the wound center to make sure these toe wounds are healing.) Tomy Cannon PA-C [Primary Care Provider] - Interventions: ED Discharge Assessment Last Done: 01/13/23 11:09 Discharge Date/Time: 01/13/23 11:10 Print Language: Danish
[2023-01-13 09:23] LABS: MANUAL DIFF FLAG NO
[2023-01-13] MEDS: Piperacillin Sodium/Tazobactam 3.375 GM in 0.9 % Sodium Chloride 50 ML IV (09:23)
[2023-01-13 10:00] LABS: Alanine Aminotransferase 25 U/L (0-40); Albumin Level 3.9 g/dL (3.5-5.0); Alkaline Phosphatase 132 U/L (39-117); Anion Gap 12 (12-20); Aspartate Amino Transferase 18 U/L (5-37); Bilirubin Total 0.9 mg/dL (0.0-1.0); Blood Urea Nitrogen 21 mg/dL (9-16); C Reactive Protein 3.15 mg/dL (< or = 0.50); Calcium 9.3 mg/dL (8.4-10.2); Carbon Dioxide 26 mmol/L (22-29); Chloride 102 mmol/L (96-108); Creatinine Clr Calc Pharmacy 107.8; Estimated Glomerular Filt Rate > 60; Potassium 4.2 mmol/L (3.3-5.1); Sodium 136 mmol/L (135-145); Total Protein 7.3 g/dL (6.5-8.0)
[2023-01-13 10:03] LABS: Glucose Random 389 mg/dL (60-115)
[2023-01-13 10:28] LABS: Erythrocyte Sedimentation Rate 28 MM/HR (0-15)
[2023-01-13 10:55] LABS: Basophils Percent Auto 0.4 % (0-2); Eosinophils Absolute Auto 0.1 X10*3/uL (0.0-0.4); Hematocrit 41.1 % (42.0-52.0); Hemoglobin 14.4 g/dl (14.0-18.0); Imm Gran Abs Auto 0.02 X10*3/uL (0.00-0.03); Imm Gran Pct Auto 0.3 % (0.0-0.4); Lymphocytes Absolute Auto 1.5 X10*3/uL (1.2-4.9); Lymphocytes Percent Auto 22.2 % (20-40); Mean Corpuscular Hemoglobin 28.6 pg (27.0-33.0); Mean Corpuscular Volume 81.7 fL (80.0-98.0); Mean Platelet Volume 10.6 fL (9.4-12.4); Monocytes Absolute Auto 0.5 X10*3/uL (0.1-1.2); Monocytes Percent Auto 6.7 % (2-11); Neutrophils Absolute Auto 4.7 x10*3/uL (2.0-8.3); Neutrophils Percent Auto 68.4 % (45-73); Platelet Count 127 X10*3/uL (160-400); Red Blood Count 5.03 X10*6/uL (4.60-5.80); Red Cell Distribution Width 12.8 % (11.0-16.0); White Blood Count 6.9 X10*3/uL (4.8-10.8)
[2023-01-13 11:03] VITALS: BP 129/95; PULSE 91; RESP 16; TEMP 36.3; O2SAT 98
== END 2023-01-13 11:10 | disposition home or self-care (01) ==
PROVIDERS: Physician Assistant Medical; Emergency Provider Emergency Medicine; PCP Physician Assistant
DX: L03.032 Cellulitis of left toe (principal); E11.9 Type 2 diabetes mellitus without complications; I10 Essential (primary) hypertension; Z79.4 Long term (current) use of insulin; Z79.899 Other long term (current) drug therapy
CPT/HCPCS: 36415; 73630; 80053; 83605; 85025; 85652; 86140; 87040; 96374; 99283; 99284; J2543

== ENCOUNTER 2023-01-20 08:01 | Outpatient (RCR) | payer OTHER, SELFPAY | END 2023-02-26 09:34 | disposition home or self-care (01) | LOC: HO.WCC 08:01 | PROVIDERS: PCP Physician Assistant; Visit Provider Surgery | DX: Z09 Encounter for follow-up examination after completed treatment for conditions other than malignant neoplasm (principal); S80.861D Insect bite (nonvenomous), right lower leg, subsequent encounter; W57.XXXD Bitten or stung by nonvenomous insect and other nonvenomous arthropods, subsequent encounter; Y93.9 Activity, unspecified; Y92.9 Unspecified place or not applicable; Y99.9 Unspecified external cause status; Z86.31 Personal history of diabetic foot ulcer | CPT/HCPCS: 11042; 99212 ==

== ENCOUNTER 2023-02-04 13:59 | Outpatient (REF) | payer OTHER, SELFPAY ==
--- NOTE | ~2023-02-04 | US_ITS ---
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 COMPARISON: None available. TECHNIQUE: Real-time ultrasound and Doppler techniques (integrating B-mode 2D vascular images, Doppler spectral analysis and color flow Doppler imaging) were utilized to interrogate the left lower extremity arterial system. FINDINGS: Left leg: There is mild arterial plaque present. Common femoral artery: There is a triphasic waveform with peak systolic velocity of 107 cm/s. Profunda femoral artery: There is a triphasic waveform with peak systolic velocity of 57 cm/s. Proximal superficial femoral artery: There is a triphasic waveform with peak systolic velocity of 92 cm/s. Mid superficial femoral artery: There is a triphasic waveform with peak systolic velocity of 91 cm/s. Distal superficial femoral artery: There is a triphasic waveform with peak systolic velocity of 75 cm/s. Popliteal artery: There is a triphasic waveform with peak systolic velocity of 69 cm/s. Distal left peroneal artery: There is a triphasic waveform with peak systolic velocity of 74 cm/s. Mid left peroneal artery: There is a triphasic waveform with peak systolic velocity of 90 cm/s. Proximal peroneal artery: There is a triphasic waveform with peak systolic velocity of 70 cm/s. Proximal posterior tibial artery: There is a monophasic waveform with peak systolic velocity of 46 cm/s. Mid posterior tibial artery: There is a monophasic waveform with peak systolic velocity of 49 cm/s. Distal posterior tibial artery: There is a triphasic waveform with spectral broadening and peak systolic velocity of 48 cm/s. US/US arterial duplex LE LT IMPRESSION: 1. No hemodynamically significant disease to the popliteal artery. Normal arterial flow within the peroneal artery. 2. Some diminished flow within the posterior tibial artery which may be technical. 3. No definite hemodynamically significant left lower extremity arterial disease.
== END 2023-02-04 14:00 | disposition home or self-care (01) ==
LOC: HO.US 13:59
PROVIDERS: PCP Physician Assistant; Visit Provider Physician Assistant
DX: M79.671 Pain in right foot (principal); L97.519 Non-pressure chronic ulcer of other part of right foot with unspecified severity; M79.89 Other specified soft tissue disorders; L81.9 Disorder of pigmentation, unspecified
CPT/HCPCS: 93926

== ENCOUNTER 2023-03-11 13:49 | Outpatient (AMB) | payer OTHER, SELFPAY ==
--- NOTE | 2023-03-11 14:02 | MHC.OFFVIS ---
Intake Vital Signs 03/11/23 14:07 Height 5 ft 10 in Weight 191 lb 12.835 oz BMI 27.5 BP 111/77 Blood Pressure Location Lt brachial Position Sitting Pulse 101 H Intake Visit Reasons: Dysphagia Intake Note: Mark presents in the office as a new patient for Dysphagia. CC: He is having trouble breathing and swallowing. When he eats certain fruits - he will feel like his throat is swelled up. Allergies metformin Adverse Reaction (Intermediate, Verified 03/11/23 14:08) GI side effects Medication List - Last Reconciled 03/11/23 by Lexii Palacios PA-C flash glucose scanning reader (FreeStyle Elaine 14 Day [place]) As directed flash glucose sensor (FreeStyle Elaine 2 Sensor kit) As directed fluoxetine 20 mg PO DAILY 30 days hydroxyzine HCl 10 mg PO ONCE PRN 14 days insulin glargine (Lantus Solostar U-100 Insulin) 32 units (0.32 mL) subcut QPM 30 days insulin lispro 10 units (0.1 mL) subcut TID lisinopril 5 mg PO DAILY pen needle, diabetic (BD Ultra-Fine Lula Pen Needle) As directed pioglitazone (Actos) 30 mg PO DAILY HPI HPI Comments History of Present Illness Details A 42 y/o male with dysphagia- he says when he eats certain fruits he has difficulty swallowing - most solids Eventually it passes-a times it is uncomfortable Acid reflux-intermittently- He had an UGI series There is a mild nonobstructive kink seen within the distal cervical esophagus with some mild narrowing in the AP dimension but through which half-inch diameter barium tablet passed without difficulty. 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 Foot callus Hx of intestinal obstruction Knee pain, right NIDDY (non-insulin dependent diabetes mellitus in young) Surgical History History of appendectomy History of hernia surgery Family History Mother Diabetes High blood pressure Social History Housing: House Alcohol intake: current Alcohol intake frequency: holidays/special occasions only Patient Tobacco Use Status: Never used Tobacco e-Cigarette/Vaping Use: Never Used Second Hand Smoke Exposure: No service: No Current occupational status: employed Current occupation: right handed Cognitive needs: No Hearing needs: No Vision needs: No Review of Systems Const All systems reviewed & are unremarkable except as noted in HPI and below ENT Reports dysphagia Card Denies chest pain and Denies dyspnea Resp Denies dyspnea GI Denies abdominal pain, Denies change in bowel habits, Reports dysphagia and Reports heartburn Physical Exam Vital Signs: Last Vital Signs Pulse 101 H 03/11/23 14:07 BP 111/77 03/11/23 14:07 BMI result Body Mass Index 27.5 Const General: cooperative, healthy appearing, comfortable and anxious Orientation/consciousness: patient oriented x3 Limitations: no limitations Resp Effort & Inspection: normal respiratory effort and able to speak in complete sentences Auscultation: clear to auscultation bilaterally, no rales, no rhonchi and no wheezes Cardio Rate: regular rate (Nov) Rhythm: regular rhythm Heart sounds: S1 normal heart sound present and S2 normal heart sound present GI Palpation (GI): Soft to palpation and nontender Auscultation: normal bowel sounds Skin General skin exam: no rashes or lesions noted Neuro General: patient oriented x3 Extrem General: Yes full ROM Psych Appearance: grossly normal and well kempt Mental Status: mental status grossly normal Speech and movement: Normal speech and movement present and Clear speech present Affect: normal affect Attitude: cooperative Thought process: Normal thought process present Thought content: Normal thought content present Results Reviewed Results Reviewed: 11/2021- FL/FL upper GI w air IMPRESSION: Free gastroesophageal reflux to the level of the thoracic inlet.? ?PCP note 01/26/23 Assessment & Plan Assessment & Plan (1) Dysphagia: Comment: To solids, reviewed upper GI series Code(s): R13.10 - Dysphagia, unspecified Qualifiers: Dysphagia type: pharyngeal phase Qualified Code(s): R13.13 - Dysphagia, pharyngeal phase (2) GERD (gastroesophageal reflux disease): Code(s): K21.9 - Gastro-esophageal reflux disease without esophagitis Qualifiers: Esophagitis presence: without esophagitis Qualified Code(s): K21.9 - Gastro-esophageal reflux disease without esophagitis Plan: Pantoprazole 40 mg daily Plan ppi EGD soon Orders: Orders EDG - GI Use Only 03/11/23 Medications: New pantoprazole 40 mg (2 x 20 mg) PO ONCE 30 days 60 tabs 6RF Patient Instructions: 42-year-old male diabetic, dysphagia to solids, intermittent acid reflux Eat slowly, chew food well-avoid choking EGD-discussed procedure, rare risk Reflux precautions reviewed PPI continue Encouraged to call questions or concerns Appreciate the opportunity assist in the care this pleasant [place] Coding Level of Care Code Est Pt Level 3 (74793) Diagnoses Dysphagia R13.13 Dysphagia type: pharyngeal phase GERD (gastroesophageal reflux disease) K21.9 Esophagitis presence: without esophagitis Time Spent (min) 30
[2023-03-11 14:07] VITALS: BP 111/77; PULSE 101; BMI 27.5
== END 2023-03-11 15:28 | disposition home or self-care (01) ==
PROVIDERS: PCP Physician Assistant; Visit Provider Physician Assistant
DX: R13.13 Dysphagia, pharyngeal phase (principal); K21.9 Gastro-esophageal reflux disease without esophagitis
CPT/HCPCS: 99213

== ENCOUNTER → 2023-03-11 13:49 | Outpatient (BNVA) | payer OTHER, SELFPAY | PROVIDERS: PCP Physician Assistant; Visit Provider Physician Assistant ==

== ENCOUNTER 2023-04-29 11:44 | Day surgery (SDC) | payer OTHER, SELFPAY ==
[2023-04-29 12:04] VITALS: BP 115/93; PULSE 100; RESP 20; TEMP 36.1; O2SAT 97; BMI 26.5
[2023-04-29 12:06] LABS: Glucose, Whole Blood 254 mg/dL (60-115)
--- NOTE | 2023-04-29 12:14 | HO.ANESPROP2 ---
HPI - Anesthesia Eval Consult details Narrative: 42 M for EGD Uncontrolled DM PMFSH Active Problems Active Problems: All Active Problems (Updated 03/16/23 @ 12:07 by Lexii Palacios PA-C) Diabetic foot ulcer associated with type 2 diabetes mellitus (Acute) Discoloration of skin of toe (Acute) Swelling of left foot (Acute) Drinking binge (Acute) HTN (hypertension) (Acute) JOLIE (generalized anxiety disorder) (Acute) MDD (major depressive disorder), recurrent episode, moderate (Acute) Dysphagia (Acute) Foot ulcer, right (Acute) GERD (gastroesophageal reflux disease) (Acute) Annual physical exam (Acute) Patellofemoral arthralgia of both knees (Acute) DMII (diabetes mellitus, type 2) (Acute) JOLIE (generalized anxiety disorder) (Acute) Past Medical History Medical History Erectile disorder due to medical condition in male patient Foot callus Hx of intestinal obstruction Knee pain, right NIDDY (non-insulin dependent diabetes mellitus in young) Functional capacity: independent ambulation Family History Family History Mother Diabetes High blood pressure Family history of problems with anesthesia: No Surgical History Surgical History History of appendectomy History of hernia surgery History of Problems with Anesthesia: No Social History Social History Housing: House Alcohol intake: current Alcohol intake frequency: does not drink Patient Tobacco Use Status: Never used Tobacco e-Cigarette/Vaping Use: Never Used Second Hand Smoke Exposure: No service: No Current occupational status: employed Current occupation: right handed Cognitive needs: No Hearing needs: No Vision needs: No Meds Allergies Allergy/AdvReac Type Severity Reaction Status Date / Time metformin AdvReac Intermediate GI side Verified 03/11/23 14:08 effects Exam Exam Date and Time: April 29, 2023 1214 Height,Weight and Vital Signs: Height 5 ft 10 in Weight 83.915 kg Last Vital Signs Temp 97 F 04/29/23 12:04 Pulse 100 04/29/23 12:04 Resp 20 04/29/23 12:04 BP 115/93 H 04/29/23 12:04 Pulse Ox 97 04/29/23 12:04 O2 Del Method Room Air 04/29/23 12:04 Pertinent Lab Results Pertinent Lab Results: Laboratory Tests 04/29/23 12:01 POC Glucose 254 H Airway Mallampati Class: III Loose/Missing/Broken Teeth: Yes Assessment and Plan Assessment Anesthesia Assessment: Anesthesia Plan Discussed and Chart Reviewed Final Anesthetic Review Family History of Problems with Anesthesia: No History of Problems with Anesthesia: No NPO: Yes ASA Class: III Final Preanesthetic Review: Meds/Allgs Chart Reviewed, Consent Obtained/Reviewed and Anes Risks/Benef Reviewed Patient Risk: Intermediate Procedure Risk: Intermediate Anesthetic Plan Anesthetic Plan: MAC: and Agree w/ Assess. and Plan Disposition: Standard PACU
[2023-04-29] MEDS: Lactated Ringers 1,000 ML 50 ML IVCONT (12:20)
--- NOTE | 2023-04-29 12:20 | MHC.SHP ---
Pre-Procedural Eval Section A Date of Service: 04/29/23 Section B Chief Complaint: Other dysphagia Relevant Family History (Specify if Yes): No Relevant Social History: None Present Medications: see Short Stay Collaborative assessment Medical History: Significant History (Erectile disorder due to medical condition in male patient Foot callus Hx of intestinal obstruction Knee pain, right NIDDY (non-insulin dependent diabetes mellitus in young)) History of Previous Operations: Relevant previous surgery/procedure and date(s) (appendectomy, hernia repair ) Allergies: Allergies Allergy/AdvReac Type Severity Reaction Status Date / Time metformin AdvReac Intermediate GI side Verified 03/11/23 14:08 effects Review of Systems Sugical H&P ROS: Negative: Constitution, Cardiovascular, Respiratory, Neurological, Psychiatric, Hem-Onc, Allergic/Immunologic, Gastrointestinal, Genitourinary, Musculoskeletal, Integumentary, Endocrine and Eyes/Ears/Nose/Throat Exam Surgical H&P Exam: Normal: HEENT, Normal: Heart, Normal: Lungs, Normal: Extremities, Normal: Abdomen, Normal: Skin and Normal: Neurological Plan Diagnosis/Plan: Unchanged I have reviewed the history and physical and performed a pertinent physical examination on my patient. No changes have occurred unless specified. Time Spent With Patient Time: Total time managing care of this patient today ____ minutes.
[2023-04-29] MEDS: Metoclopramide HCl 10 MG/2 ML VIAL 5 MG IVPUSH (12:34)
--- NOTE | 2023-04-29 12:58 | W.PM.OPN ---
Operative Note Operative Note Date of Service: 04/29/23 Narrative: Procedure Description: EGD Indication: dysphagia Anesthesia: MAC FLEXIBLE TRANSORAL UPPER GASTROINTESTINAL ENDOSCOPY UPPER ENDOSCOPY Consent: Indications for the procedure and potential complications of bleeding, perforation, reaction to medications and missed diagnosis were discussed with the patient and informed consent was obtained. Instrument: Olympus GIF H 190 J mid size upper endoscope Monitoring: Vital signs and clinical assessment, continuous EKG monitoring, Pulse oximetry, Carbon Dioxide monitoring and blood pressure monitoring were done throughout the procedure. Procedure: The patient was placed in the left lateral decubitis position and pre-procedure medications were administered and a bite block was placed. The endoscope was inserted into the mouth and advanced under direct vision to the third part of duodenum. A careful inspection was made as the upper endoscope was withdrawn including a retroflexed examination of the proximal stomach; Findings and interventions are described below. Findings: Larynx:normal Esophagus: GE junction at 38 cm, diaphragm hiatus at 38 cm, mild esophagitis, bx taken from GEJ, distal and proximal esophagus, good peristalsis --balloon dilation done to 20 mm at lower esophagus and UES-no tears seen Stomach: Patchy gastric erythema. Biopsies were obtained. Grade 2 flap valve on retroflexed examination of the cardia. normal peristalsis Duodenum: Mild bulbar duodenitis , bx taken Intervention: Biopsies as noted above, balloon dilation Impression/Findings: mild esophagitis mild gastritis mild duodenitis PLAN: cont with PPI if ongoing sx and bx neg then manometry improve diabetic control, can be associated with ineffective esophageal motility (IEM)
[2023-04-29 13:05] VITALS: BP 109/73; PULSE 89; RESP 15; TEMP 36.3; O2SAT 98
[2023-04-29 13:20] VITALS: BP 120/81; PULSE 92; RESP 18; TEMP 36.3; O2SAT 98
== END 2023-04-29 13:53 | disposition home or self-care (01) ==
PROVIDERS: PCP Physician Assistant; Visit Provider Internal Medicine Gastroenterology
PROC: 0DJ08ZZ Inspection of Upper Intestinal Tract, Via Natural or Artificial Opening Endoscopic (ICD-10-PCS; CPT 43235; principal; 2023-04-29 14:30)
DX: R13.19 Other dysphagia (principal); K29.70 Gastritis, unspecified, without bleeding; K29.80 Duodenitis without bleeding; K20.80 Other esophagitis without bleeding; K44.9 Diaphragmatic hernia without obstruction or gangrene; E11.9 Type 2 diabetes mellitus without complications; N52.1 Erectile dysfunction due to diseases classified elsewhere; Z79.4 Long term (current) use of insulin; Z79.899 Other long term (current) drug therapy; Z88.8 Allergy status to other drugs, medicaments and biological substances; Z98.890 Other specified postprocedural states
CPT/HCPCS: 43249; 43239; 82947; 88305; 88342; C1726; J2765

== ENCOUNTER → 2023-04-29 11:44 | Outpatient (BNV) | payer OTHER, SELFPAY | PROVIDERS: PCP Physician Assistant; Visit Provider Internal Medicine Gastroenterology | DX: R13.10 Dysphagia, unspecified (principal); K29.70 Gastritis, unspecified, without bleeding; K20.90 Esophagitis, unspecified without bleeding; K57.90 Diverticulosis of intestine, part unspecified, without perforation or abscess without bleeding | CPT/HCPCS: 43239; 43249 ==

== ENCOUNTER 2023-05-13 12:55 | Outpatient (AMB) | payer OTHER, SELFPAY ==
--- NOTE | 2023-05-13 12:59 | A.OFFVIS_ITS ---
Intake Vital Signs 05/13/23 13:01 Height 5 ft 10 in Weight 191 lb 12.835 oz BMI 27.5 BP 138/88 Blood Pressure Location Lt brachial Position Sitting Pulse 104 H Intake Visit Reasons: S/P EGD; Dr. Barahona Intake Note: Mark presents in the office as a follow up EGD. CC: He states that he is not having any concerns since the procedure. 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 He tolerated- well- feels some improvement Blood sugars are inconsistent- typically high-80 agrees that he should try to get him better controlled He does drink alcohol-he is aware that he should not. Reviewed procedure report, pathology recommendation [facility] Medical History (Updated 05/13/23 @ 13:24 by Lexii Palacios PA-C) Hx of intestinal obstruction Foot callus Erectile disorder due to medical condition in male patient Knee pain, right NIDDY (non-insulin dependent diabetes mellitus in young) Surgical History Hx of esophagogastroduodenoscopy History of appendectomy History of hernia surgery Family History Mother Diabetes High blood pressure Social History Housing: House Alcohol intake: current Alcohol intake frequency: does not drink Patient Tobacco Use Status: Never used Tobacco e-Cigarette/Vaping Use: Never Used Second Hand Smoke Exposure: No service: No Current occupational status: employed Current occupation: right handed Cognitive needs: No Hearing needs: No Vision needs: No Physical Exam Vital Signs: Last Vital Signs Pulse 104 H 05/13/23 13:01 BP 138/88 05/13/23 13:01 BMI result Body Mass Index 27.5 Const General: cooperative, healthy appearing, comfortable and no acute distress Orientation/consciousness: patient oriented x3 Limitations: no limitations Eyes Sclerae: sclerae normal Resp Effort & Inspection: normal respiratory effort and able to speak in complete sentences Skin General skin exam: no rashes or lesions noted Neuro General: patient oriented x3 Extrem General: Yes full ROM Psych Appearance: grossly normal Mental Status: mental status grossly normal Speech and movement: Normal speech and movement present Affect: normal affect Attitude: cooperative Thought process: Normal thought process present Thought content: Normal thought content present Judgement: Fair judgement present (Psych) Results Reviewed Results Reviewed: Intervention: Biopsies as noted above, balloon dilation Impression/Findings: mild esophagitis mild gastritis mild duodenitis PLAN: cont with PPI if ongoing sx and bx neg then manometry improve diabetic control, can be associated with ineffective esophageal motility (IEM) destiny: Mark Humphrey Age/Sex: 42/M Attending: Maribel Barahona MD : 1980 Submitted by: Maribel Barahona MD Copies to: Tomy Cannon PA-C MR #: [id number] Status: [facility] Collected: 04/29/23 Location: [facility] Received: 04/29/23 Diagnosis A. Duodenum, biopsy: Duodenal mucosa within normal limits; preserved villous architecture and no increased intraepithelial lymphocytes seen. B. Stomach, biopsy: Gastric antral and body mucosa within normal limits; negative for Helicobacter pylori, intestinal metaplasia and dysplasia. C. Gastroesophageal junction, biopsy: Squamous and columnar junctional mucosa with mild chronic inflammation; negative for intestinal metaplasia and dysplasia. D. Esophagus, distal, biopsy: Squamous mucosa within normal limits; negative for inflammation (including intraepithelial eosinophils), fungal organisms, intestinal metaplasia and dysplasia. E. Esophagus, proximal, biopsy: Squamous mucosa within normal limits; negative for inflammation (including intraepithelial eosinophils), fungal organisms, intestinal metaplasia and dysplasia. Clinical History Pre-Op Dx: Dysphagia Post-Op Dx: Gastritis, duodenitis, mild esophagitis Microscopic Description Microscopic sections reviewed. Material Received A. Duodenum bx's B. Stomach bx's C. GE junction bx's D. Distal esophagus bx's E. Proximal esophagus bx's Gross Description Received in 5 parts. Part A: Received in formalin labeled ?duodenum bx's? are 4 glistening, semitranslucent, soft, martin-pink irregular and rectangular tissue fragments ranging from 0.1-0.35 cm in greatest dimension which are submitted in toto in a single cassette labeled A. Part B: Received in formalin labeled ?stomach bx's? are 3 glistening, semitranslucent, soft, martin-pink Patient: Mark Humphrey Age/Sex: 42/M [id number] MR#: [id number] Page 1 of 15 January 2023 [id number] Assessment & Plan Assessment & Plan (1) GERD (gastroesophageal reflux disease): Code(s): K21.9 - Gastro-esophageal reflux disease without esophagitis Qualifiers: Esophagitis presence: without esophagitis Qualified Code(s): K21.9 - Gastro-esophageal reflux disease without esophagitis Plan: Reflux precautions reviewed Avoid culprits to include alcohol Continue PPI This symptoms persist re consider manometry (2) Dysphagia: Comment: Symptoms improved since EGD with dil Code(s): R13.10 - Dysphagia, unspecified Qualifiers: Dysphagia type: pharyngeal phase Qualified Code(s): R13.13 - Dysphagia, pharyngeal phase (3) DMII (diabetes mellitus, type 2): Comment: Diabetes not well controlled- Code(s): E11.9 - Type 2 diabetes mellitus without complications Qualifiers: Diabetes mellitus mcc insulin use: without mcc use Diabetes mellitus complication status: with hyperglycemia Qualified Code(s): E11.65 - Type 2 diabetes mellitus with hyperglycemia Plan: Better manage/ control DM Avoid ETOH Plan manage blood sugars better, wants to wait and reconsider manometry Reviewed reflux precautions Continue pantoprazole 40 mg daily Patient Instructions: Reviewed procedure report pathology recommendations He will try to manage blood sugars better, wants to wait and reconsider manometry Reviewed reflux precautions Continue pantoprazole 40 mg daily Discussed at length avoidance of alcohol playing a role with however reflux as well as elevated blood sugar Encouraged to Call with any concerns Coding Level of Care Code Est Pt Level 3 (84860) Diagnoses Gastroesophageal reflux disease without esophagitis K21.9 Esophagitis presence: without esophagitis Pharyngeal dysphagia R13.13 Dysphagia type: pharyngeal phase Type 2 diabetes mellitus with hyperglycemia, without long-term current use of insulin E11.65 Diabetes mellitus mcc insulin 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
[2023-05-13 13:01] VITALS: BP 138/88; PULSE 104; BMI 27.5
== END 2023-05-13 14:02 | disposition home or self-care (01) ==
PROVIDERS: PCP Physician Assistant; Visit Provider Physician Assistant
DX: K21.9 Gastro-esophageal reflux disease without esophagitis (principal); R13.13 Dysphagia, pharyngeal phase; E11.65 Type 2 diabetes mellitus with hyperglycemia
CPT/HCPCS: 99213

== ENCOUNTER → 2023-05-13 12:55 | Outpatient (BNVA) | payer OTHER, SELFPAY | PROVIDERS: PCP Physician Assistant; Visit Provider Physician Assistant ==

== ENCOUNTER 2023-09-11 13:52 | Inpatient (IN) | payer OTHER, SELFPAY ==
--- NOTE | ~2023-09-11 | MR_ITS ---
EXAMINATION: MR FOOT WITHOUT AND WITH CONTRAST, LEFT CLINICAL INFORMATION: Toe infection. Rule out osteomyelitis COMPARISON: 09/11/2023. TECHNIQUE: MRI of the left foot was performed before and after the intravenous administration of 9 mL Gadavist on a high-field scanner. FINDINGS: At the dorsal margin of the second toe PIP joint, there is a small skin wound measuring 0.5 x 0.5 cm with underlying subcutaneous edema and enhancement. No appreciable underlying abscess. More mild generalized subcutaneous edema is present in the second through fourth toes, most pronounced at the second toe. Marked subcutaneous edema is present in the forefoot dorsally. No discrete peripheral enhancing collections are identified to indicate an abscess. Mildly increased signal intensity is present within the distal phalanges of the first, second, third, and fourth toes on T2-weighted images. Marrow signal is normal within these phalanges on T1-weighted images. There is minimally increased enhancement within the distal phalanges of the great toe and second toe. In the absence of an abutting skin wound or abscess, this appearance is not specific and may be reactive in nature. Osteomyelitis is less likely. Bone marrow signal is otherwise normal in the forefoot. Joint spaces appear well-preserved. No effusion or synovitis. Tendons are intact without tears, tendinosis, or tenosynovitis. There is increased T2 signal in the intrinsic foot musculature with mild fatty replacement, most likely due to early changes of diabetic neuropathy. An adventitious bursa at the plantar aspect of the fifth metatarsal head measuring 1.3 x 1 x 0.2 cm demonstrates internal fluid signal, consistent with mild bursitis. MR/MR foot LT wo/w con IMPRESSION: 1. Small skin wound at the dorsal margin of the second toe PIP joint. No underlying abscess. 2. Mildly edema signal in the phalanges of the great toe and second toe, favored to be reactive in nature. Osteomyelitis is felt to be unlikely in the absence of abutting skin wound or abscess. 3. Mild adventitious bursitis at the plantar aspect of the fifth metatarsal head.
--- NOTE | ~2023-09-11 | XR_ITS ---
History: Diabetic ulcers. Exams: Left foot 3 views right foot 3 views left ankle 2 views FINDINGS: Left foot and ankle: No findings of osteomyelitis. No periosteal bone formation or focal bone loss. Calcaneal spurring. No soft tissue air. No findings of spondyloarthropathy. Right foot: Similarly no focal lesion. Calcaneal spurring. No soft tissue air. No focal findings of osteomyelitis radiographically. XR/XR ankle LT min 3V IMPRESSION: No evidence of osteomyelitis. If there is a high clinical suspicion for osteomyelitis, MRI would be more sensitive.
--- NOTE | ~2023-09-11 | XR_ITS ---
History: Diabetic ulcers. Exams: Left foot 3 views right foot 3 views left ankle 2 views FINDINGS: Left foot and ankle: No findings of osteomyelitis. No periosteal bone formation or focal bone loss. Calcaneal spurring. No soft tissue air. No findings of spondyloarthropathy. Right foot: Similarly no focal lesion. Calcaneal spurring. No soft tissue air. No focal findings of osteomyelitis radiographically. XR/XR foot RT min 3V IMPRESSION: No evidence of osteomyelitis. If there is a high clinical suspicion for osteomyelitis, MRI would be more sensitive.
--- NOTE | ~2023-09-11 | XR_ITS ---
History: Diabetic ulcers. Exams: Left foot 3 views right foot 3 views left ankle 2 views FINDINGS: Left foot and ankle: No findings of osteomyelitis. No periosteal bone formation or focal bone loss. Calcaneal spurring. No soft tissue air. No findings of spondyloarthropathy. Right foot: Similarly no focal lesion. Calcaneal spurring. No soft tissue air. No focal findings of osteomyelitis radiographically. XR/XR foot LT min 3V IMPRESSION: No evidence of osteomyelitis. If there is a high clinical suspicion for osteomyelitis, MRI would be more sensitive.
--- NOTE | 2023-09-11 13:58 | ED_ITS ---
HPI - Extremity Injury (Lower) General Chief Complaint: Extremity Injury, Lower Stated Complaint: L foot injury/ turning purple? Time Seen by Provider: 09/11/23 17:13 Related Data Previous Rx's Medication Instructions Recorded lisinopril 5 mg tablet 5 mg PO DAILY #30 tabs 08/24/22 hydroxyzine HCl 10 mg tablet 10 mg PO ONCE PRN panic attack 14 01/26/23 days #14 tabs insulin glargine 100 unit/mL (3 32 unit (0.32 mL) subcut QPM 30 01/26/23 mL) subcutaneous pen (Lantus days #9.6 mL Solostar U-100 Insulin) pioglitazone 30 mg tablet (Actos) 30 mg PO DAILY #30 tabs 01/26/23 fluoxetine 20 mg capsule 20 mg PO DAILY 30 days #30 caps 02/22/23 pantoprazole 20 mg tablet,delayed 40 mg (2 x 20 mg) PO ONCE 30 days 03/11/23 release #60 tabs Allergies Allergy/AdvReac Type Severity Reaction Status Date / Time metformin AdvReac Intermediate GI side Verified 09/11/23 13:58 effects PMFSH Past Medical History Medical History Hx of intestinal obstruction Foot callus Erectile disorder due to medical condition in male patient Knee pain, right NIDDY (non-insulin dependent diabetes mellitus in young) Surgical History Hx of esophagogastroduodenoscopy History of appendectomy History of hernia surgery Family History Family History Mother Diabetes High blood pressure Social History Social History Housing: House Alcohol intake: current Alcohol intake frequency: does not drink Alcohol type: beer Patient Tobacco Use Status: Never used Tobacco Smoked in Last 30 Days: No e-Cigarette/Vaping Use: Never Used Second Hand Smoke Exposure: No Use of substances other than those prescribed or required for medical reasons: No Advance Directives: No Advance Directives Information Provided: No service: No Current occupational status: employed Current occupation: right handed Cognitive needs: No Hearing needs: No Vision needs: No Physical Exam 2 Vital Signs: Vital Signs: Last Vital Signs Temp 97.7 F 09/11/23 17:27 Pulse 98 09/11/23 17:27 Resp 16 09/11/23 17:27 BP 143/97 H 09/11/23 17:27 Pulse Ox 98 09/11/23 17:27 O2 Del Method Room Air 09/11/23 17:27 BMI result Body Mass Index 27.6 Course Course Course Narrative: RME:?43 yo male w/ hx of T2DM HTN, JOLIE, MDD, here w/ left toe pain/ discoloration/ blistering x1 wk. reports losing the nail on his left great toe 1 wk ago after kicking a tire. since this time, reports discoloration to left great toe and second toe with blistering. Adds that he has an ulcer to the right lateral foot x1 week. Has hx of uncontrolled T2DM. PE: blistering/ ulcerations to dorsal distal aspect of left great and 2nd toes. healing ulcer to plantar lateral aspect of left foot. significant swelling to lateral ankle/ malleolus. ulcer to lateral/ plantar aspect of right foot. 2+ dp pulses b/l. plan for labs, xrs Full HPI, ROS and PE to be performed by the primary ED provider. Medications Administered Discontinued Medications Generic Name Dose Route Start Last Admin Trade Name Freq PRN Reason Stop Dose Admin Sodium Chloride 2,000 mls @ 999 mls/hr 09/11/23 17:22 09/11/23 17:37 Ns IVCONT 09/11/23 19:22 999 mls/hr .Q2H1M ONE Administration Vancomycin HCl 2,000 mg in 520 mls @ 250 mls/hr 09/11/23 17:22 09/11/23 18:37 Vancomycin/Ns IV 09/11/23 19:26 250 mls/hr ONCE ONE Administration Piperacillin Sod/Tazobactam 50 mls @ 100 mls/hr 09/11/23 17:22 09/11/23 18:36 Sod 3.375 gm/ Sodium Chloride IV 09/11/23 17:51 Infused ONCE ONE Infusion Insulin Human Regular 5 unit 09/11/23 17:41 09/11/23 17:43 Insulin Regular, Human 100 Unit/Ml 3 Ml Vial IVPUSH 09/11/23 17:42 5 unit ONCE ONE Administration Medical Decision Making Medical Decision Making MDM Narrative: - my interpretation of labs: Normal hematology and chemistry, glucose initially 401, on recheck 323, patient received IV fluids and 5 units of insulin - patient has cellulitis in both feet, patient not septic. Patient given IV vancomycin and Zosyn. Patient will likely need debridement in 1 of the wounds - discussed the patient with Dr. Hu, patient being admitted Differential Diagnosis Differential Diagnoses: The differential diagnosis associated with the presentation includes ( hyperglycemia, DKA, cellulitis) Admission/Observation Consideration of admission/observation: Escalation of care including admission/observation considered Consult Healthcare Provider Management of the patient was discussed with: Hospitalist Lab Data [facility] Lab Attestation statement: I reviewed the patient's lab results. 09/11/23 14:23 09/11/23 14:23 Labs: Lab Results 09/11/23 09/11/23 09/11/23 Range/Units 14:23 17:40 19:00 WBC 8.1 (4.8-10.8) X10*3/uL RBC 4.87 (4.60-5.80) X10*6/uL Hgb 13.9 L (14.0-18.0) g/dl Hct 39.2 L (42.0-52.0) % MCV 80.5 (80.0-98.0) fL MCH 28.5 (27.0-33.0) pg MCHC 35.5 (31.0-36.0) g/dl RDW 12.9 (11.0-16.0) % Plt Count 165 D (160-400) X10*3/uL MPV 10.4 (9.4-12.4) fL Immature Gran % (Auto) 0.4 (0.0-0.4) % Neut % (Auto) 67.8 (45-73) % Lymph % (Auto) 23.0 (20-40) % [place] % (Auto) 6.7 (2-11) % Eos % (Auto) 1.7 (0-4) % Baso % (Auto) 0.4 (0-2) % Lymph # (Auto) 1.9 (1.2-4.9) X10*3/uL [place] # (Auto) 0.5 (0.1-1.2) X10*3/uL Eos # (Auto) 0.1 (0.0-0.4) X10*3/uL Baso # (Auto) 0.0 (0.0-0.2) X10*3/uL Abs Immat Gran (auto) 0.03 (0.00-0.03) X10*3/uL Absolute Neuts (auto) 5.5 (2.0-8.3) x10*3/uL Absolute Nucleated RBC 0.000 (0.0-0.012) X10*3/uL Nucleated RBC % (auto) 0.0 (0.0-0.2) /100WBC ESR 60 H (0-15) MM/HR Sodium 136 (135-145) mmol/L Potassium 4.0 (3.3-5.1) mmol/L Chloride 102 (96-108) mmol/L Carbon Dioxide 23 (22-29) mmol/L Anion Gap 15 (12-20) BUN 18 H (9-16) mg/dL Creatinine 1.00 (0.5-1.4) mg/dL Estim Creat Clear Calc 100.3 Estimated GFR > 60 POC Glucose 323 H 249 H (60-115) mg/dL Random Glucose 401 H* (60-115) mg/dL Lactic Acid 1.1 (0.5-2.0) mmol/L Calcium 9.3 (8.4-10.2) mg/dL Magnesium 1.9 (1.6-2.6) mg/dL Total Bilirubin 0.6 (0.0-1.0) mg/dL Direct Bilirubin 0.2 (0.0-0.5) mg/dL AST 18 (5-37) U/L ALT 23 (0-40) U/L Alkaline Phosphatase 150 H (39-117) U/L C-Reactive Protein 5.72 H (< or = 0.50) mg/dL Total Protein 7.9 (6.5-8.0) g/dL Albumin 3.6 (3.5-5.0) g/dL Lipase 23 (8-78) U/L Beta-Hydroxybutyrate 0.58 H (0.02-0.27) mmol/L Independent Interpretation I performed an independent interpretation of an: Plain X-Ray Radiology Impression Discussion of test interpretation with radiology: I have reviewed the radiologist's reading. Radiologist Impression: no evidence of osteomyelitis in the foot right and left Critical Care Time Critical Care Time Critical Care Time: Yes Total Critical Care Time: 60 Attestation: I have personally provided critical care time. Time includes review of lab data, radiology results, discussion with consultants, and monitoring for potential decompensation. Intervention performed as documented. Discharge Plan Discharge Clinical Impression: Diabetic foot ulcer, Cellulitis Patient Disposition: Admitted As Inpatient Prescriptions: No Action lisinopril 5 mg tablet 5 mg PO DAILY Qty: 30 3RF fluoxetine 20 mg capsule 20 mg PO DAILY 30 Days Qty: 30 3RF hydroxyzine HCl 10 mg tablet 10 mg PO ONCE PRN (Reason: panic attack) 14 Days Qty: 14 0RF pioglitazone [Actos] 30 mg tablet 30 mg PO DAILY Qty: 30 3RF Lantus Solostar U-100 Insulin 100 unit/mL (3 mL) insulin pen 32 unit subcut QPM 30 Days Qty: 9.6 3RF Patient Comments: only took half dose pantoprazole 20 mg tablet,delayed release (DR/EC) 40 mg PO ONCE 30 Days Qty: 60 6RF
[2023-09-11 13:59] VITALS: BP 171/104; PULSE 110; RESP 16; TEMP 36.8; O2SAT 98; BMI 27.6
[2023-09-11 14:34] LABS: MANUAL DIFF FLAG NO
[2023-09-11 14:35] LABS: Basophils Percent Auto 0.4 % (0-2); Eosinophils Absolute Auto 0.1 X10*3/uL (0.0-0.4); Eosinophils Percent Auto 1.7 % (0-4); Hematocrit 39.2 % (42.0-52.0); Hemoglobin 13.9 g/dl (14.0-18.0); Imm Gran Abs Auto 0.03 X10*3/uL (0.00-0.03); Imm Gran Pct Auto 0.4 % (0.0-0.4); Lymphocytes Absolute Auto 1.9 X10*3/uL (1.2-4.9); Mean Corpuscular HGB Conc 35.5 g/dl (31.0-36.0); Mean Corpuscular Hemoglobin 28.5 pg (27.0-33.0); Mean Corpuscular Volume 80.5 fL (80.0-98.0); Mean Platelet Volume 10.4 fL (9.4-12.4); Monocytes Absolute Auto 0.5 X10*3/uL (0.1-1.2); Monocytes Percent Auto 6.7 % (2-11); Neutrophils Absolute Auto 5.5 x10*3/uL (2.0-8.3); Neutrophils Percent Auto 67.8 % (45-73); Platelet Count 165 X10*3/uL (160-400); Red Blood Count 4.87 X10*6/uL (4.60-5.80); Red Cell Distribution Width 12.9 % (11.0-16.0); White Blood Count 8.1 X10*3/uL (4.8-10.8)
[2023-09-11 14:49] LABS: Lactic Acid 1.1 mmol/L (0.5-2.0)
[2023-09-11 15:09] LABS: Anion Gap 15 (12-20); Blood Urea Nitrogen 18 mg/dL (9-16); Calcium 9.3 mg/dL (8.4-10.2); Carbon Dioxide 23 mmol/L (22-29); Chloride 102 mmol/L (96-108); Creatinine Clr Calc Pharmacy 100.3; Estimated Glomerular Filt Rate > 60; Glucose Random 401 mg/dL (60-115); Lipase 23 U/L (8-78); Magnesium 1.9 mg/dL (1.6-2.6); Sodium 136 mmol/L (135-145)
[2023-09-11 16:30] VITALS: BP 148/107; PULSE 112; RESP 18; TEMP 36.4; O2SAT 98
[2023-09-11 17:27] VITALS: BP 143/97; PULSE 98; RESP 16; TEMP 36.5; O2SAT 98
[2023-09-11] MEDS: 0.9 % Sodium Chloride 2,000 ML 999 ML IVCONT (17:37)
[2023-09-11 17:38] LABS: Alanine Aminotransferase 23 U/L (0-40); Albumin Level 3.6 g/dL (3.5-5.0); Alkaline Phosphatase 150 U/L (39-117); Aspartate Amino Transferase 18 U/L (5-37); Beta-Hydroxybutyrate 0.58 mmol/L (0.02-0.27); Bilirubin Direct 0.2 mg/dL (0.0-0.5); Bilirubin Total 0.6 mg/dL (0.0-1.0); Total Protein 7.9 g/dL (6.5-8.0)
--- NOTE | 2023-09-11 17:42 | PC.NURSE ---
POC 323, notified. order changed to 5u IVpush insulin
[2023-09-11] MEDS: Insulin Regular, Human 100 UNIT/ML 3 ML VIAL IVPUSH (17:43)
[2023-09-11 17:44] LABS: Glucose, Whole Blood 323 mg/dL (60-115)
[2023-09-11] MEDS: Piperacillin Sodium/Tazobactam 3.375 GM in 0.9 % Sodium Chloride 50 ML IV (17:44)
[2023-09-11 18:31] LABS: C Reactive Protein 5.72 mg/dL (< or = 0.50)
--- NOTE | 2023-09-11 18:54 | PM.IMHP ---
History of Present Illness Date of Service: 09/11/23 Attending physician on admission: Kemal Hu Chief Complaint: Worsening feet infection Pt is a 43-year-old male with a PMH significant for?insulin dependent type 2 diabetes, HTN, GERD, hx of SBO, and depression who presents to the ED for evaluation of worsening wounds on his feet. Pt states symptoms began approximately 10 days ago when he was in the shower and noticed that both of his big toenails fell off. He then developed blisters all over his feet, some of which popped and discharge foul-smelling and cloudy fluid. Patient put Neosporin and silver alginate on his wounds, with most of those on his right foot responding well to the treatment. Those on his left foot did not show any evidence of healing, and continued to get worse and worse. The toenail on the 2nd digit on his left foot eventually also fell off. Patient reports he now has difficulty walking due to pain and also losing balance since he has had to change his gait to compensate for left foot pain. Patient denies any known trauma to his feet. Some chills but no measured fever. No nausea, vomiting, abdominal pain. Denies chest pain/pressure, palpitations. No shortness of breath. Patient previous [facility] chronic diabetic foot ulcers, last visit in February of 2023. In the ED pt was tachycardic up to 112 and hypertensive up to 171/104, vitals otherwise WNL. Labs were significant for elevated ESR of 60, C-reactive protein 5.72, random glucose 401, and alk-phos 150. No leukocytosis. Stable H&H. No electrolyte abnormalities. Renal function baseline. X-ray of left foot and ankle and right foot with no evidence of osteomyelitis. Pt was treated with IVF, insulin, vanc, and Zosyn. Pt will be admitted to the hospital for treatment further evaluation of diabetic foot infection. [facility] Medical History (Updated 09/11/23 @ 20:11 by NURA Jensen) Small bowel obstruction Hx of intestinal obstruction Foot callus Erectile disorder due to medical condition in male patient Knee pain, right NIDDY (non-insulin dependent diabetes mellitus in young) Family History Mother Diabetes High blood pressure Surgical History Hx of esophagogastroduodenoscopy History of appendectomy History of hernia surgery Social History Household Members: Family Housing: House Do you presently have visiting nurse or other home services: No Alcohol intake: current Alcohol intake frequency: does not drink Alcohol type: beer Patient Tobacco Use Status: Never used Tobacco Smoked in Last 30 Days: No e-Cigarette/Vaping Use: Never Used Second Hand Smoke Exposure: No Use of substances other than those prescribed or required for medical reasons: No Currently Displaying Signs/Symptoms of Drug Intoxication Withdrawal: No Have you been hit, kicked, punched, or otherwise hurt by someone within the past year? If so, by whom?: No Do you feel safe in your current relationship?: Yes Is there a partner from a previous relationship who is making you feel unsafe now?: No Are you made to feel afraid or neglected: No Advance Directives: No Advance Directives Information Provided: No Do you have thoughts of harming others: None Do you have a plan to hurt others: No Plan Recently lost weight without trying: No How much weight loss: Not applicable Eating poorly because of decreased appetite: No Nutrition screen score: 0 Nutrition Risks: No Nutritional Risk Poor oral hygiene: No service: No Current occupational status: employed Current occupation: right handed Cognitive needs: No Hearing needs: No Vision needs: No Meds Allergies Allergy/AdvReac Type Severity Reaction Status Date / Time metformin AdvReac Intermediate GI side Verified 09/11/23 13:58 effects Active Medications: Current Medications Sodium Chloride (Ns) 2,000 mls @ 999 mls/hr IVCONT .Q2H1M ONE Stop: 09/11/23 19:22 Last Admin: 09/11/23 17:37 Dose: 999 mls/hr Vancomycin HCl (Vancomycin/Ns) 2,000 mg in 520 mls @ 250 mls/hr IV ONCE ONE Stop: 09/11/23 19:26 Last Admin: 09/11/23 18:37 Dose: 250 mls/hr Physical Exam Vital Signs and Narrative: Vital Signs: Last Vital Signs Temp 97.7 F 09/11/23 17:27 Pulse 98 09/11/23 17:27 Resp 16 09/11/23 17:27 BP 143/97 H 09/11/23 17:27 Pulse Ox 98 09/11/23 17:27 O2 Del Method Room Air 09/11/23 17:27 BMI result Body Mass Index 27.6 Constitutional: Alert, in no acute distress. Mental Status: Oriented to person, place and time. Eyes: Pupils are equal, round, and reactive to light. Ear, Nose, and Throat: Oropharynx clear, mucous membranes moist. Ears and nose without deformities. Trachea midline. Respiratory: Clear to auscultation bilaterally. No wheezing, rales, or rhonchi. Cardiovascular: S1, S2 regular. No murmurs, rubs, or gallops. Gastrointestinal: Abdomen soft, non-tender, non-distended. Normal bowel sounds. Neurologic: Cranial nerves II-XII are grossly intact bilaterally. No focal neurological deficits. Moves all extremities spontaneously. Skin: Warm, dry. Musculoskeletal: No cyanosis or clubbing. Extremities: Chronic wound on lateral aspect of left foot. Healing wound on lateral aspect of right foot without erythema or warmth. Non-healing wounds primarily on first and second digits of left foot with surrounding erythema and warmth. Multple superficial abrasions in various stages of healing and areas of ecchymosis on lower legs bilaterally. As pictured below. Psychiatric: Normal mood and affect. Results Labs 09/11/23 14:23 09/11/23 14:23 Labs: Laboratory Results - last 24 hr 09/11/23 09/11/23 14:23 17:40 MCV 80.5 MCH 28.5 MCHC 35.5 RDW 12.9 Plt Count 165 D MPV 10.4 Immature Gran % (Auto) 0.4 Neut % (Auto) 67.8 Lymph % (Auto) 23.0 [place] % (Auto) 6.7 Eos % (Auto) 1.7 Baso % (Auto) 0.4 Lymph # (Auto) 1.9 [place] # (Auto) 0.5 Eos # (Auto) 0.1 Baso # (Auto) 0.0 Abs Immat Gran (auto) 0.03 Absolute Neuts (auto) 5.5 Absolute Nucleated RBC 0.000 Nucleated RBC % (auto) 0.0 Anion Gap 15 Estim Creat Clear Calc 100.3 Estimated GFR > 60 POC Glucose 323 H Random Glucose 401 H* Lactic Acid 1.1 Calcium 9.3 Magnesium 1.9 Total Bilirubin 0.6 Direct Bilirubin 0.2 AST 18 ALT 23 Alkaline Phosphatase 150 H C-Reactive Protein 5.72 H Total Protein 7.9 Albumin 3.6 Lipase 23 Beta-Hydroxybutyrate 0.58 H Imaging Radiologist's Impressions: Impressions Ankle X-Ray 09/11/23 14:14 IMPRESSION: No evidence of osteomyelitis. If there is a high clinical suspicion for osteomyelitis, MRI would be more sensitive. Foot X-Ray 09/11/23 14:14 IMPRESSION: No evidence of osteomyelitis. If there is a high clinical suspicion for osteomyelitis, MRI would be more sensitive. Foot X-Ray 09/11/23 14:14 IMPRESSION: No evidence of osteomyelitis. If there is a high clinical suspicion for osteomyelitis, MRI would be more sensitive. Assessment and Plan (1) Cellulitis: Qualifiers: Laterality: left Site of cellulitis: extremity Site of cellulitis of extremity: lower extremity Qualified Code(s): L03.116 - Cellulitis of left lower limb Status: Acute (2) Hyperglycemia: Status: Acute Plan Pt is a 43-year-old male with a PMH significant for?insulin dependent type 2 diabetes, HTN, GERD, hx of SBO, and depression who presents to the ED for evaluation of worsening wounds on his feet. Pt states symptoms began approximately 10 days ago when he was in the shower and noticed that both of his big toenails fell off. Pt will be admitted to the hospital for treatment further evaluation of diabetic foot infection. Diabetic foot infections ESR 60, CRP 5.72, x-ray of feet without evidence of osteomyelitis Patient does not meet sepsis criteria: Tachycardia, but no fever, tachypnea, or leukocytosis; lactic acid WNL at 1.1 Will treat with vancomycin and ceftriaxone, started 09/11/2023 Wound care consult Follow cultures Insulin-dependent type 2 diabetes mellitus, poorly controlled Patient hyperglycemic with random glucose 401 at time of presentation Will check A1c; A1c was 10.2 on 04/15/2021, and then 10.9 on 01/26/[address] on sliding scale insulin, continue Lantus at bedtime, continue pioglitazone Diabetic diet Encourage patient to monitor blood glucose and adhere to a diabetic diet at home HTN Continue lisinopril GERD Continue PPI Mood disorder Continue fluoxetine, hydroxyzine Full Code Attending:?Dr. Hu DVT Prophylaxis: Lovenox Pt will require a hospitalization of at least two nights for treatment of?diabetic foot infections. Given patient's history of previous chronic diabetic foot ulcers, poorly controlled diabetes type 2, and worsening infection, patient will require hospitalized stay for administration of IV antibiotics and consultation with wound care. Quality Stroke Does the patient have a stroke diagnosis?: No VTE Prior VTE?: No VTE Risk Level:: Medical - moderate - high VTE Device Contraindication: Treatment Not Indicated VTE Drug Contraindication: N/A - Med Ordered
[2023-09-11 19:02] LABS: Erythrocyte Sedimentation Rate 60 MM/HR (0-15)
[2023-09-11 19:04] LABS: Glucose, Whole Blood 249 mg/dL (60-115)
--- NOTE | 2023-09-11 19:08 | PC.NURSE ---
Assumed care of PT at 19:00, resting in bed, in no apparent distress. Vanco running. at bedside. Awaiting bed assignment.
[2023-09-11 20:03] VITALS: BP 159/102; RESP 16; TEMP 36.8; O2SAT 99
[2023-09-11 20:18] LABS: Glucose, Whole Blood 243 mg/dL (60-115)
[2023-09-11] MEDS: Enoxaparin Sodium 40 MG/0.4 ML SYRINGE SUBCUT (20:20)
[2023-09-11] MEDS: Insulin Lispro 100 UNIT/ML 3 ML VIAL SUBCUT (20:21)
[2023-09-11 20:46] VITALS: BMI 27.6
[2023-09-11 20:52] VITALS: BP 153/96; PULSE 98; RESP 18; TEMP 36.9; O2SAT 98
[2023-09-11] MEDS: 0.9 % Sodium Chloride Flush 3 ML SYRINGE IVFLUSH (21:08)
[2023-09-12 03:42] VITALS: BP 136/78; PULSE 91; RESP 14; TEMP 36.4; O2SAT 98
[2023-09-12] MEDS: Acetaminophen 325 MG TABLET 650 MG PO (04:59)
[2023-09-12] MEDS: vancomycin HCL 1,250 MG in 0.9 % Sodium Chloride 250 ML 166.67 MG IV ×2 (05:00→18:03)
[2023-09-12] MEDS: cefTRIAXone sodium 1 GM in 0.9 % Sodium Chloride 50 ML IV (06:34)
[2023-09-12 07:13] VITALS: BP 129/79; PULSE 88; RESP 16; TEMP 36.8; O2SAT 97
[2023-09-12 07:29] LABS: Glucose, Whole Blood 284 mg/dL (60-115)
[2023-09-12] MEDS: 0.9 % Sodium Chloride Flush 3 ML SYRINGE IVFLUSH ×2 (07:48→19:39)
[2023-09-12] MEDS: Insulin Lispro 100 UNIT/ML 3 ML VIAL SUBCUT ×4 (07:52→21:02)
[2023-09-12 08:34] LABS: Estimated Average Glucose 289 mg/dL; Hemoglobin A1c % 11.7 % (<6.0)
[2023-09-12] MEDS: Insulin Glargine,Hum.rec.anlog 100 UNIT/ML 10 ML VIAL 25 UNIT SUBCUT (08:54)
--- NOTE | 2023-09-12 09:40 | P.PNIM_ITS ---
Subjective Subjective Date of Service: 09/12/23 Interval History: Seen and evaluated this morning Denies any fever or chills HbA1c 11.7 wounds the same, no significant drainage Review of Systems Review of Systems: Yes all other systems are reviewed and are negative Physical Exam 2 Vital Signs: Vital Signs: Last Vital Signs Temp 98.3 F 09/12/23 07:13 Pulse 88 09/12/23 07:13 Resp 16 09/12/23 07:13 BP 129/79 09/12/23 07:13 Pulse Ox 97 09/12/23 07:13 O2 Del Method Room Air 09/12/23 07:13 BMI result Body Mass Index 27.6 Const: Other: Constitutional : Awake, interactive, not in distress Neck : Normal inspection, Supple Cardiovascular : RRR, no JVP, no lower extremity edema Respiratory : good bilateral air entry, no crackles, wheezes or rhonchi Gastrointestinal: soft, lax, Normal bowel sounds, Non tender Skin : Warm, Dry, right lateral open wound with sloughed skin, no drainage, mild erythema. Left first 2 toes swelling, erythema and mild tenderness. right lateral sole of foot chronic wound Neurological : Alert & oriented x3, No focal deficit Objective Data Active Medications Acetaminophen (Acetaminophen 325 Mg Tablet) 650 mg PO Q6H PRN PRN Reason: Pain, Mild (Pain Scale 1-3) Last Admin: 09/12/23 04:59 Dose: 650 mg Documented By: DANIELA Benzonatate (Benzonatate 100 Mg Capsule) 100 mg PO TID PRN PRN Reason: Cough Dextrose (Dextrose 50 % 25 Gm/50 Ml Syringe) 25 gm IVPUSH Q15M PRN; Protocol PRN Reason: per Hypoglycemia Standing Ord. Docusate Sodium (Docusate Sodium 100 Mg Capsule) 100 mg PO DAILY PRN PRN Reason: Constipation Enoxaparin Sodium (Enoxaparin Sodium 40 Mg/0.4 Ml Syringe) 40 mg SUBCUT Q24H [facility] Last Admin: 09/11/23 20:20 Dose: 40 mg Documented By: GOPAL Glucose (Glucose Gel 15 Gm Gel..Gram.) 15 gm PO Q15M PRN; Protocol PRN Reason: per Hypoglycemia Standing Ord. Ceftriaxone Sodium 1 gm/ (Sodium Chloride) 50 mls @ 100 mls/hr IV Q24H [facility] Last Infusion: 09/12/23 07:47 Dose: Infused Documented By: AILEEN Vancomycin HCl 1,250 mg/ (Sodium Chloride) 250 mls @ 166.667 mls/hr IV Q12H [facility] Last Infusion: 09/12/23 06:34 Dose: Infused Documented By: DANIELA Insulin Glargine (Insulin Glargine,Hum.Rec.Anlog 100 Unit/Ml 10 Ml Vial) 25 unit SUBCUT DAILY [facility] Last Admin: 09/12/23 08:54 Dose: 25 unit Documented By: AILEEN Insulin Human Lispro (Insulin Lispro 100 Unit/Ml 3 Ml Vial) 0 unit SUBCUT QIDACHS [facility]; Protocol Last Admin: 09/12/23 07:52 Dose: 6 unit Documented By: AILEEN Melatonin (Melatonin 3 Mg Tablet) 6 mg PO BEDTIME PRN PRN Reason: Insomnia Ondansetron HCl (Ondansetron Hcl 4 Mg/2 Ml Vial) 4 mg IVPUSH Q8H PRN PRN Reason: Nausea and Vomiting Pharmacy Consult (Consult Rx Vancomycin Dosing) 1 each MISCELLANE DAILY PRN PRN Reason: Consult order Sodium Chloride (0.9 % Sodium Chloride Flush 3 Ml Syringe) 3 ml IVFLUSH QSHIFT [facility] Last Admin: 09/12/23 07:48 Dose: 3 ml Documented By: AILEEN Labs 09/11/23 14:23 09/11/23 14:23 Labs: Laboratory Results - last 24 hr 09/11/23 09/11/23 09/11/23 14:23 17:40 19:00 MCV 80.5 MCH 28.5 MCHC 35.5 RDW 12.9 Plt Count 165 D MPV 10.4 Immature Gran % (Auto) 0.4 Neut % (Auto) 67.8 Lymph % (Auto) 23.0 [place] % (Auto) 6.7 Eos % (Auto) 1.7 Baso % (Auto) 0.4 Lymph # (Auto) 1.9 [place] # (Auto) 0.5 Eos # (Auto) 0.1 Baso # (Auto) 0.0 Abs Immat Gran (auto) 0.03 Absolute Neuts (auto) 5.5 Absolute Nucleated RBC 0.000 Nucleated RBC % (auto) 0.0 ESR 60 H Hold Purple Top Anion Gap 15 Estim Creat Clear Calc 100.3 Estimated GFR > 60 POC Glucose 323 H 249 H Random Glucose 401 H* Estimat Average Glucose Hemoglobin A1c % Lactic Acid 1.1 Calcium 9.3 Magnesium 1.9 Total Bilirubin 0.6 Direct Bilirubin 0.2 AST 18 ALT 23 Alkaline Phosphatase 150 H C-Reactive Protein 5.72 H Total Protein 7.9 Albumin 3.6 Lipase 23 Beta-Hydroxybutyrate 0.58 H Hold Yellow Top 09/11/23 09/11/23 09/12/23 20:14 21:26 07:13 MCV MCH MCHC RDW Plt Count MPV Immature Gran % (Auto) Neut % (Auto) Lymph % (Auto) [place] % (Auto) Eos % (Auto) Baso % (Auto) Lymph # (Auto) [place] # (Auto) Eos # (Auto) Baso # (Auto) Abs Immat Gran (auto) Absolute Neuts (auto) Absolute Nucleated RBC Nucleated RBC % (auto) ESR Hold Purple Top Anion Gap Estim Creat Clear Calc Estimated GFR POC Glucose 243 H 284 H Random Glucose Estimat Average Glucose 289 Hemoglobin A1c % 11.7 H Lactic Acid Calcium Magnesium Total Bilirubin Direct Bilirubin AST ALT Alkaline Phosphatase C-Reactive Protein Total Protein Albumin Lipase Beta-Hydroxybutyrate Hold Yellow Top 09/12/23 09:21 MCV MCH MCHC RDW Plt Count MPV Immature Gran % (Auto) Neut % (Auto) Lymph % (Auto) [place] % (Auto) Eos % (Auto) Baso % (Auto) Lymph # (Auto) [place] # (Auto) Eos # (Auto) Baso # (Auto) Abs Immat Gran (auto) Absolute Neuts (auto) Absolute Nucleated RBC Nucleated RBC % (auto) ESR Hold Purple Top SEE NOTE Anion Gap Estim Creat Clear Calc Estimated GFR POC Glucose Random Glucose Estimat Average Glucose Hemoglobin A1c % Lactic Acid Calcium Magnesium Total Bilirubin Direct Bilirubin AST ALT Alkaline Phosphatase C-Reactive Protein Total Protein Albumin Lipase Beta-Hydroxybutyrate Hold Yellow Top See Note Assessment and Plan (1) Hyperglycemia: Status: Acute (2) Diabetic foot ulcer associated with type 2 diabetes mellitus: Status: Acute (3) Cellulitis: Status: Acute Plan Pt is a 43-year-old male with a PMH significant for?insulin dependent type 2 diabetes, HTN, GERD, hx of SBO, and depression who presents to the ED for evaluation of worsening wounds on his feet. Pt states symptoms began approximately 10 days ago when he was in the shower and noticed that both of his big toenails fell off. Pt will be admitted to the hospital for treatment further evaluation of diabetic foot infection. Diabetic foot infection pending cultures XR negative for signs of OM Continue vancomycin and ceftriaxone, started 09/11/2023 Wound care consult consider arterial studies follow Vancomycin trough Insulin-dependent type 2 diabetes mellitus, poorly controlled HbA1c of 11.7 sliding scale insulin, continue Lantus daily along with pioglitazone Diabetic diet Encourage patient to monitor blood glucose and adhere to a diabetic diet at home HTN Continue lisinopril GERD Continue PPI Mood disorder Continue fluoxetine, hydroxyzine Full Code Attending:?Dr. Hu DVT Prophylaxis: Lovenox Pt will require inpatient hospitalization overnight for treatment of?diabetic foot infection. Given patient's history of previous chronic diabetic foot ulcers, poorly controlled diabetes type 2, and worsening infection, patient will require hospitalized stay for administration of IV antibiotics and consultation with wound care. Quality Stroke Does the patient have a stroke diagnosis?: No VTE Prior VTE?: No VTE Risk Level:: Medical - moderate - high VTE Device Contraindication: Treatment Not Indicated VTE Drug Contraindication: N/A - Med Ordered
[2023-09-12 09:41] LABS: Creatinine Clr Calc Pharmacy 109.1; Estimated Glomerular Filt Rate > 60
--- NOTE | 2023-09-12 09:54 | PHA.MEDREC ---
Pharmacy Consult ? Medication Reconciliation Pharmacy has completed the medication reconciliation. Pt reports not taking their medication in several months to due a dispute between their provider and the pharmacy. This includes Prozac, Lantus, Humalog, Protonix, and Actos. Pt states they should still be on these medications, but have been unable to get them filled.
--- NOTE | 2023-09-12 10:46 | MHC.CM.PN ---
pt lives with and children he is independetnt ,has own ride cecy bobby plan home no services
[2023-09-12 11:18] LABS: Glucose, Whole Blood 310 mg/dL (60-115)
[2023-09-12] MEDS: FLUoxetine HCl 20 MG CAPSULE PO (12:00)
[2023-09-12] MEDS: Pioglitazone HCL 30 MG TABLET PO (12:00)
[2023-09-12 15:20] VITALS: BP 133/90; PULSE 89; RESP 18; TEMP 36.7; O2SAT 98
[2023-09-12 16:16] LABS: Glucose, Whole Blood 198 mg/dL (60-115)
[2023-09-12 16:31] LABS: Vancomycin Random 9.3 mcg/mL (15-20)
[2023-09-12] MEDS: Insulin Lispro 100 UNIT/ML 3 ML VIAL 10 UNIT SUBCUT (18:07)
[2023-09-12 19:35] VITALS: BP 159/102; PULSE 88; RESP 16; TEMP 36.8; O2SAT 99
[2023-09-12] MEDS: Enoxaparin Sodium 40 MG/0.4 ML SYRINGE SUBCUT (19:39)
[2023-09-12 20:18] LABS: Glucose, Whole Blood 179 mg/dL (60-115)
[2023-09-12] MEDS: Insulin Glargine,Hum.rec.anlog 100 UNIT/ML 10 ML VIAL 15 UNIT SUBCUT (21:03)
[2023-09-13 03:32] VITALS: BP 137/80; PULSE 92; RESP 16; TEMP 36.4; O2SAT 96
[2023-09-13] MEDS: Omeprazole 20 MG CAPSULE.DR PO (05:37)
[2023-09-13] MEDS: vancomycin HCL 1,250 MG in 0.9 % Sodium Chloride 250 ML 166.67 MG IV (05:37)
[2023-09-13] MEDS: Acetaminophen 325 MG TABLET 650 MG PO (07:16)
[2023-09-13] MEDS: cefTRIAXone sodium 1 GM in 0.9 % Sodium Chloride 50 ML IV (07:19)
[2023-09-13 07:27] VITALS: BP 155/92; PULSE 89; RESP 18; TEMP 36.1; O2SAT 98
[2023-09-13 07:41] LABS: Anion Gap 12 (12-20); Blood Urea Nitrogen 13 mg/dL (9-16); Calcium 8.5 mg/dL (8.4-10.2); Carbon Dioxide 25 mmol/L (22-29); Chloride 105 mmol/L (96-108); Estimated Glomerular Filt Rate > 60; Glucose Random 112 mg/dL (60-115); Potassium 3.4 mmol/L (3.3-5.1); Sodium 139 mmol/L (135-145)
[2023-09-13 07:52] LABS: Glucose, Whole Blood 117 mg/dL (60-115)
[2023-09-13] MEDS: Pioglitazone HCL 30 MG TABLET PO (08:40)
[2023-09-13] MEDS: 0.9 % Sodium Chloride Flush 3 ML SYRINGE IVFLUSH ×3 (08:40→21:56)
[2023-09-13] MEDS: FLUoxetine HCl 20 MG CAPSULE PO (08:40)
[2023-09-13] MEDS: Insulin Lispro 100 UNIT/ML 3 ML VIAL 10 UNIT SUBCUT ×3 (08:41→17:14)
[2023-09-13] MEDS: Insulin Glargine,Hum.rec.anlog 100 UNIT/ML 10 ML VIAL 25 UNIT SUBCUT (08:42)
--- NOTE | 2023-09-13 11:07 | MHC.CM.PN ---
EMR reviewed. Per MD rounds patient is not medically cleared for dc, will need to complete 1 more day of IV abx. Do not anticipate the need for services on dc. CM will continue to follow.
--- NOTE | 2023-09-13 11:23 | P.PNIM_ITS ---
Subjective Subjective Date of Service: 09/13/23 Interval History: Seen and evaluated this morning Denies any fever or chills , erythema and swelling decreasing better sugar control no significant drainage Review of Systems Review of Systems: Yes all other systems are reviewed and are negative Physical Exam 2 Vital Signs: Vital Signs: Last Vital Signs Temp 97 F 09/13/23 07:27 Pulse 89 09/13/23 07:27 Resp 18 09/13/23 07:27 BP 155/92 H 09/13/23 07:27 Pulse Ox 98 09/13/23 07:27 O2 Del Method Room Air 09/13/23 07:27 BMI result Body Mass Index 27.6 Const: Other: Constitutional : Awake, interactive, not in distress Neck : Normal inspection, Supple Cardiovascular : RRR, no JVP, no lower extremity edema Respiratory : good bilateral air entry, no crackles, wheezes or rhonchi Gastrointestinal: soft, lax, Normal bowel sounds, Non tender Skin : Warm, Dry, right lateral open wound with sloughed skin, no drainage, mild erythema. Left first 2 toes swelling, erythema and mild tenderness. right lateral sole of foot chronic wound Neurological : Alert & oriented x3, No focal deficit Objective Data Active Medications Acetaminophen (Acetaminophen 325 Mg Tablet) 650 mg PO Q6H PRN PRN Reason: Pain, Mild (Pain Scale 1-3) Last Admin: 09/13/23 07:16 Dose: 650 mg Documented By: GOKUL Benzonatate (Benzonatate 100 Mg Capsule) 100 mg PO TID PRN PRN Reason: Cough Dextrose (Dextrose 50 % 25 Gm/50 Ml Syringe) 25 gm IVPUSH Q15M PRN; Protocol PRN Reason: per Hypoglycemia Standing Ord. Docusate Sodium (Docusate Sodium 100 Mg Capsule) 100 mg PO DAILY PRN PRN Reason: Constipation Enoxaparin Sodium (Enoxaparin Sodium 40 Mg/0.4 Ml Syringe) 40 mg SUBCUT Q24H [facility] Last Admin: 09/12/23 19:39 Dose: 40 mg Documented By: FINESSE Fluoxetine HCl (Fluoxetine Hcl 20 Mg Capsule) 20 mg PO DAILY [facility] Last Admin: 09/13/23 08:40 Dose: 20 mg Documented By: GOKUL Glucose (Glucose Gel 15 Gm Gel..Gram.) 15 gm PO Q15M PRN; Protocol PRN Reason: per Hypoglycemia Standing Ord. Ceftriaxone Sodium 1 gm/ (Sodium Chloride) 50 mls @ 100 mls/hr IV Q24H [facility] Last Infusion: 09/13/23 07:54 Dose: Infused Documented By: GOKUL Vancomycin HCl 1,250 mg/ (Sodium Chloride) 250 mls @ 166.667 mls/hr IV Q12H [facility] Last Infusion: 09/13/23 07:25 Dose: Infused Documented By: GOKUL Insulin Glargine (Insulin Glargine,Hum.Rec.Anlog 100 Unit/Ml 10 Ml Vial) 25 unit SUBCUT DAILY [facility] Last Admin: 09/13/23 08:42 Dose: 25 unit Documented By: GOKUL Insulin Glargine (Insulin Glargine,Hum.Rec.Anlog 100 Unit/Ml 10 Ml Vial) 15 unit SUBCUT BEDTIME [facility] Last Admin: 09/12/23 21:03 Dose: 15 unit Documented By: FINESSE Insulin Human Lispro (Insulin Lispro 100 Unit/Ml 3 Ml Vial) 0 unit SUBCUT QIDACHS [facility]; Protocol Last Admin: 09/13/23 08:01 Dose: Not Given Documented By: GOKUL Non-Admin Reason: No Insulin Coverage Insulin Human Lispro (Insulin Lispro 100 Unit/Ml 3 Ml Vial) 10 unit SUBCUT TIDAC [facility] Last Admin: 09/13/23 08:41 Dose: 10 unit Documented By: GOKUL Melatonin (Melatonin 3 Mg Tablet) 6 mg PO BEDTIME PRN PRN Reason: Insomnia Omeprazole (Omeprazole 20 Mg Capsule.Dr) 20 mg PO DAILY@0630 [facility] Last Admin: 09/13/23 05:37 Dose: 20 mg Documented By: FINESSE Ondansetron HCl (Ondansetron Hcl 4 Mg/2 Ml Vial) 4 mg IVPUSH Q8H PRN PRN Reason: Nausea and Vomiting Pharmacy Consult (Consult Rx Vancomycin Dosing) 1 each MISCELLANE DAILY PRN PRN Reason: Consult order Pioglitazone HCl (Pioglitazone Hcl 30 Mg Tablet) 30 mg PO DAILY [facility] Last Admin: 09/13/23 08:40 Dose: 30 mg Documented By: GOKUL Sodium Chloride (0.9 % Sodium Chloride Flush 3 Ml Syringe) 3 ml IVFLUSH QSHIFT [facility] Last Admin: 09/13/23 08:40 Dose: 3 ml Documented By: GOKUL Labs 09/11/23 14:23 09/13/23 06:10 Labs: Laboratory Results - last 24 hr 09/12/23 09/12/23 09/12/23 16:05 16:09 20:14 Hold Purple Top Anion Gap Estim Creat Clear Calc Estimated GFR POC Glucose 198 H 179 H Random Glucose Calcium Random Vancomycin 9.3 L 09/13/23 09/13/23 06:10 07:27 Hold Purple Top SEE NOTE Anion Gap 12 Estim Creat Clear Calc 127.0 Estimated GFR > 60 POC Glucose 117 H Random Glucose 112 Calcium 8.5 D Random Vancomycin Microbiology Microbiology Results: Microbiology 09/11/23 17:17 Blood Culture - Preliminary Blood - Venous No growth after 24 hours. 09/11/23 14:23 Blood Culture - Preliminary Blood - Venous No growth after 24 hours. Assessment and Plan (1) Hyperglycemia: Status: Acute (2) Cellulitis: Status: Acute (3) Diabetic foot ulcer: Status: Acute Plan Pt is a 43-year-old male with a PMH significant for?insulin dependent type 2 diabetes, HTN, GERD, hx of SBO, and depression who presents to the ED for evaluation of worsening wounds on his feet. Pt states symptoms began approximately 10 days ago when he was in the shower and noticed that both of his big toenails fell off. Pt will be admitted to the hospital for treatment further evaluation of diabetic foot infection. Diabetic foot infection pending cultures XR negative for signs of OM Continue vancomycin and ceftriaxone, started 09/11/2023 Wound care consult Vascular team to evaluate follow Vancomycin trough Insulin-dependent type 2 diabetes mellitus, poorly controlled with Hyperglycemia HbA1c of 11.7 sliding scale insulin, continue Lantus 25 day, 15 bedtime along with pioglitazone Diabetic diet Encourage patient to monitor blood glucose and adhere to a diabetic diet at home HTN Continue lisinopril GERD Continue PPI Mood disorder Continue fluoxetine, hydroxyzine Full Code Attending:?Dr. Hu DVT Prophylaxis: Lovenox Pt will require inpatient hospitalization overnight for treatment of?diabetic foot infection. Given patient's history of previous chronic diabetic foot ulcers, poorly controlled diabetes type 2, and worsening infection, patient will require hospitalized stay for administration of IV antibiotics and consultation with wound care. Quality Stroke Does the patient have a stroke diagnosis?: No VTE Prior VTE?: No VTE Risk Level:: Medical - moderate - high VTE Device Contraindication: Treatment Not Indicated VTE Drug Contraindication: N/A - Med Ordered
[2023-09-13 11:25] LABS: Glucose, Whole Blood 122 mg/dL (60-115)
--- NOTE | 2023-09-13 12:10 | HO.WOUND ---
Wound Consult: Initial 43yr old? admitted [place] [facility] [place] See progress notes and H&P for detailed history.? Wound consult placed for Bilateral foot wounds.? Patient agreeable to assessment and photo documentation.? Pt reports he has followed with outpt wound clinicn in the past but has not seen the clinic since approximately summer and how wounds have currently healed. Unfortunately at this time I do not have access to those notes and visits. Pt reports last year he had a scan performed to assess blood flow to the left foot - but was told that everything was fine and he reports she did not need to follow up with Vascular team / surgeon. With limited access to chart - it is unclear of the etiology - he reports over the last few days he has lost toe nails to both great toes and left 2nd toe. He reports she does often fluctuate between swelling and no swelling but he has never had loss of toe nails previously. Patient reports neuropathy to both feet. 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 He reports ill fitting shoes may be impacting these wounds and has since gone to Shoe speciality store - [facility] and purchased appropriate shoes. TT to Dr. Hu - to consider Vascular consult - he reports Dr. Ramirez is aware of patient and is set to see him this admission. Topical recommendations are made below but unclear of etiology to the wounds. Etiology: ?Unknown Etiology ?Present on Admission Wound Bed: Right Lateral Foot wound - Dried scabbed area callused edges - similar previous injury noted to left foot. small amount of creamy serosang drainage expressed under scab. Drainage / Odor: yellow drainage prior to cleaning Edges: ? irregular and attached Valerie wound: ? red pink hyperpigmentation + swelling noted - No Induration, Fluctuance or Warmth noted,m +DP pulse noted no TP pulse noted Left Great and 2nd toe wounds - Dried scabbed areas some are moist moistly dry scabs Drainage / Odor: none noted - Pt reports serosang drainage noted on socks when no dressing is in place Edges: ? irregular and attached Valerie wound: ? red pink purple hyperpigmentation + swelling noted - No Induration, Fluctuance or Warmth noted - +DP pulse noted no TP pulse noted of note the 3rd and 4th nail beds are discolored with purple blue and maroon nail beds Pain: reports neuropathy Goals of Treatment: ? Defer to Vascular for assessment and Etiology - Topical care can consist of moist wound healing to the right lateral wound and Left toes to keep scabs dry and stable with Betadine. Various scabs noted to bilateral hammond pt reports these wounds are secondary to climbing his ladder at work and hitting his shins. Scabs are stable and in various stages at this time - no topical interventions needed at this time. Recommendations: 1. Provide adequate and supplemental nutrition.? 2. When applicable maintain blood glucose levels per Providers order. 3. Right Lateral Foot - Cleanse with NS moist gauze, pat dry. Apply xeroform gauze, cover with foam dressing. Change Daily. 4. Left great and 2nd toe - Cleanse with Betadine, allow to dry. Protect from friciton and trauma with dry gauze. Re-consult wound care Nurse for wound deterioration or wound changes.
--- NOTE | 2023-09-13 13:11 | P.CDIM_ITS ---
PROVIDER RESPONSE TEXT: To clarify, the appropriate diagnosis supported by the clinical indicators: Cellulitis due to/associated with Diabetes mellitus Type 2 QUERY TEXT: PHYSICIAN'S DOCUMENTATION REQUEST Date of Query: 09/13/2023 11:28 AM EST Patient Name: Mark Humphrey Admit Date: 09/11/2023 Dear Kemal Hu, A review of the medical record indicates additional documentation may be needed. Please review below and update the documentation accordingly. Clinical Indicators: H&P 09/11 - Assessment and plan: Cellulitis left lower extremity PN 09/13 - Assessment and plan - Cellulitis Diabetic foot infection Vancomycin and ceftriaxone Follow cultures Please clarify the following regarding the Complications of Diabetes Mellitus (DM): Cellulitis due to/associated with Diabetes mellitus Type 2 Cellulitis is not due to/associated with Diabetes mellitus Type 2 Other (explain) Clinically unable to determine (explain) Thank you, Diamond Pickett, CCS, CDIS Use of terms such as suspected, likely, concern for, or probable (associated with a specific diagnosi s that is being evaluated, monitored, or treated as if it exists) are acceptable and can be coded in the inpatient se tting, when documented at the time of discharge. Please use your independent medical judgment in providing your response. THIS QUERY IS PART OF THE PERMANENT MEDICAL RECORD
--- NOTE | 2023-09-13 14:26 | P.CONGS_ITS ---
History of Present Illness Consult details Consult date: 09/13/23 Reason for consult: wound care Narrative: 43-year-old gentleman with a history of diabetes hypertension presented to the emergency department with nonhealing ulcers of the lower extremities. He has bilateral lateral foot ulcerations along with left 2nd toe ulcer. He reports that he had been doing home local wound care with no significant improvement. [facility] and has not been there since February. He now presents to us for vascular evaluation. Review of Systems 2 Review of Systems: Yes all other systems are reviewed and are negative Constitutional: Constitutional: Reports no additional constitutional complaints ENT: Reports Normal hearing present Cardiovascular: Cardiovascular: Denies chest pain, Denies chest pain at rest, Denies chest pain with activity and Denies pedal edema Respiratory: Respiratory: Denies cough Gastrointestinal: Gastrointestinal: Denies abdominal pain Musculoskeletal: Musculoskeletal: Denies abnormal gait, Denies muscle cramps and Denies radiating pain into limb Integumentary/Breasts: Skin/Breast: Denies skin ulcer and Denies wounds Neurologic: Reports Normal hearing present and Denies abnormal gait Psychiatric: Psychiatric: Reports no additional psychiatric complaints [facility] Past Medical History Medical History (Updated 09/11/23 @ 20:11 by NURA Jensen) Small bowel obstruction Hx of intestinal obstruction Foot callus Erectile disorder due to medical condition in male patient Knee pain, right NIDDY (non-insulin dependent diabetes mellitus in young) Family History Family History Mother Diabetes High blood pressure Surgical History Surgical History Hx of esophagogastroduodenoscopy History of appendectomy History of hernia surgery Social History Social History Household Members: Family Housing: House Do you presently have visiting nurse or other home services: No Alcohol intake: current Alcohol intake frequency: does not drink Alcohol type: beer Patient Tobacco Use Status: Never used Tobacco Smoked in Last 30 Days: No e-Cigarette/Vaping Use: Never Used Second Hand Smoke Exposure: No Use of substances other than those prescribed or required for medical reasons: No Currently Displaying Signs/Symptoms of Drug Intoxication Withdrawal: No Have you been hit, kicked, punched, or otherwise hurt by someone within the past year? If so, by whom?: No Do you feel safe in your current relationship?: Yes Is there a partner from a previous relationship who is making you feel unsafe now?: No Are you made to feel afraid or neglected: No Advance Directives: No Advance Directives Information Provided: No Do you have thoughts of harming others: None Do you have a plan to hurt others: No Plan Recently lost weight without trying: No How much weight loss: Not applicable Eating poorly because of decreased appetite: No Nutrition screen score: 0 Nutrition Risks: No Nutritional Risk Poor oral hygiene: No service: No Current occupational status: employed Current occupation: right handed Cognitive needs: No Hearing needs: No Vision needs: No Meds Allergies Allergy/AdvReac Type Severity Reaction Status Date / Time metformin AdvReac Intermediate GI side Verified 09/11/23 13:58 effects Active Medications: Current Medications Acetaminophen (Acetaminophen 325 Mg Tablet) 650 mg PO Q6H PRN PRN Reason: Pain, Mild (Pain Scale 1-3) Last Admin: 09/13/23 07:16 Dose: 650 mg Benzonatate (Benzonatate 100 Mg Capsule) 100 mg PO TID PRN PRN Reason: Cough Dextrose (Dextrose 50 % 25 Gm/50 Ml Syringe) 25 gm IVPUSH Q15M PRN; Protocol PRN Reason: per Hypoglycemia Standing Ord. Docusate Sodium (Docusate Sodium 100 Mg Capsule) 100 mg PO DAILY PRN PRN Reason: Constipation Enoxaparin Sodium (Enoxaparin Sodium 40 Mg/0.4 Ml Syringe) 40 mg SUBCUT Q24H [facility] Last Admin: 09/12/23 19:39 Dose: 40 mg Fluoxetine HCl (Fluoxetine Hcl 20 Mg Capsule) 20 mg PO DAILY [facility] Last Admin: 09/13/23 08:40 Dose: 20 mg Glucose (Glucose Gel 15 Gm Gel..Gram.) 15 gm PO Q15M PRN; Protocol PRN Reason: per Hypoglycemia Standing Ord. Ceftriaxone Sodium 1 gm/ (Sodium Chloride) 50 mls @ 100 mls/hr IV Q24H [facility] Last Infusion: 09/13/23 07:54 Dose: Infused Vancomycin HCl 1,250 mg/ (Sodium Chloride) 250 mls @ 166.667 mls/hr IV Q12H [facility] Last Infusion: 09/13/23 07:25 Dose: Infused Insulin Glargine (Insulin Glargine,Hum.Rec.Anlog 100 Unit/Ml 10 Ml Vial) 25 unit SUBCUT DAILY [facility] Last Admin: 09/13/23 08:42 Dose: 25 unit Insulin Glargine (Insulin Glargine,Hum.Rec.Anlog 100 Unit/Ml 10 Ml Vial) 15 unit SUBCUT BEDTIME [facility] Last Admin: 09/12/23 21:03 Dose: 15 unit Insulin Human Lispro (Insulin Lispro 100 Unit/Ml 3 Ml Vial) 0 unit SUBCUT QIDACHS [facility]; Protocol Last Admin: 09/13/23 11:43 Dose: Not Given Insulin Human Lispro (Insulin Lispro 100 Unit/Ml 3 Ml Vial) 10 unit SUBCUT TIDAC [facility] Last Admin: 09/13/23 12:16 Dose: 10 unit Melatonin (Melatonin 3 Mg Tablet) 6 mg PO BEDTIME PRN PRN Reason: Insomnia Omeprazole (Omeprazole 20 Mg Capsule.Dr) 20 mg PO DAILY@06 [facility] Last Admin: 09/13/23 05:37 Dose: 20 mg Ondansetron HCl (Ondansetron Hcl 4 Mg/2 Ml Vial) 4 mg IVPUSH Q8H PRN PRN Reason: Nausea and Vomiting Pharmacy Consult (Consult Rx Vancomycin Dosing) 1 each MISCELLANE DAILY PRN PRN Reason: Consult order Pioglitazone HCl (Pioglitazone Hcl 30 Mg Tablet) 30 mg PO DAILY [facility] Last Admin: 09/13/23 08:40 Dose: 30 mg Sodium Chloride (0.9 % Sodium Chloride Flush 3 Ml Syringe) [facility] Last Admin: 09/13/23 08:40 Dose: 3 ml Home Medications Medication Instructions Recorded Confirmed Last Taken Type insulin glargine 100 unit/mL (3 32 unit subcut BEDTIME 09/12/23 09/12/23 Unknown History mL) subcutaneous pen (Lantus Solostar U-100 Insulin) insulin lispro 100 unit/mL 10 unit subcut TID 09/12/23 09/12/23 Unknown History subcutaneous solution (Humalog U-100 Insulin) pantoprazole 20 mg tablet,delayed 40 mg PO DAILY@0630 09/12/23 09/12/23 Unknown History release Physical Exam 2 Vital Signs: Vital Signs: Last Vital Signs Temp 97 F 09/13/23 07:27 Pulse 89 09/13/23 07:27 Resp 18 09/13/23 07:27 BP 155/92 H 09/13/23 07:27 Pulse Ox 98 09/13/23 07:27 O2 Del Method Room Air 09/13/23 07:27 BMI result Body Mass Index 27.6 Const: General: cooperative, healthy appearing and comfortable O rientation/consciousness: oriented to person, oriented to place and oriented to time HEENT: Head: Yes normal to inspection Neck: Neck: Yes normal visual inspection Carotids: no bruits Chest: Chest palpation & inspection: normal inspection of the chest Resp: Effort & Inspection: normal respiratory effort and able to speak in complete sentences Auscultation: clear to auscultation bilaterally, no crackles, no rales, no rhonchi and no wheezes Cardio: Other: Palpable DP pulses bilaterally Rate: regular rate Rhythm: regular rhythm Heart sounds: S1 normal heart sound present and S2 normal heart sound present Bruits: no carotid bruits Peripheral pulses: Peripheral pulses 2+ throughout GI: Inspection: Yes normal to inspection Skin: Other: Left 2nd toe ulcer Wounds: no wounds Hair: normal Neuro: General: oriented to person, oriented to place and oriented to time Cranial nerves: Yes CN's II-XII intact bilaterally and Yes Normal hearing present Cognition (Neuro): normal cognition Motor exam (neuro): 5/5 motor strength present throughout Extrem: Other: venous exam: No significant superficial varicosities or spider telangiectasias, minimal edema General: No clubbing, No cyanosis and No edema Psych: Appearance: grossly normal Mental Status: mental status grossly normal Speech and movement: Normal speech and movement present Results Labs 09/11/23 14:23 09/13/23 06:10 Labs: Abnormal lab results 09/12/23 09/12/23 09/12/23 Range/Units 16:05 16:09 20:14 POC Glucose 198 H 179 H (60-115) mg/dL Random Vancomycin 9.3 L (15-20) mcg/mL 09/13/23 09/13/23 Range/Units 07:27 11:21 POC Glucose 117 H 122 H (60-115) mg/dL Random Vancomycin (15-20) mcg/mL BMP 09/13/23 06:10 Sodium 139 Potassium 3.4 Chloride 105 Carbon Dioxide 25 BUN 13 Creatinine 0.79 Calcium 8.5 D All other labs normal. Assessment and Plan (1) Diabetic foot ulcer associated with type 2 diabetes mellitus: Qualifiers: Diabetic foot ulcer location: toe Laterality: left Non-pressure ulcer stage: with fat layer exposed Qualified Code(s): E11.621 - Type 2 diabetes mellitus with foot ulcer; L97.522 - Non-pressure chronic ulcer of other part of left foot with fat layer exposed Status: Acute Plan In short patient has nonhealing left 2nd toe diabetic foot ulcer. He has been a longstanding diabetic for over 14 years. In addition his feet have evidence of Charcot foot. There is concern of underlying osteomyelitis just by the appearance of his foot. Would recommend MRI. Since he does have palpable pulses it does not appear to be vascular in nature. Would continue with local wound care. Will continue to follow with you. Thank you for allowing us to assist in his care. If there are any questions or concerns please do not hesitate to contact us. Procedures Date of Service Date of Service: 09/13/23
[2023-09-13 14:59] VITALS: BP 149/81; PULSE 85; RESP 18; TEMP 36.3; O2SAT 98
[2023-09-13 16:05] LABS: Glucose, Whole Blood 98 mg/dL (60-115)
[2023-09-13 16:36] LABS: Vancomycin Random 10.2 mcg/mL (15-20)
--- NOTE | 2023-09-13 16:53 | HE.PHANOTE ---
RE: vanco Trough on 09/13 came back low at 10.2 mg/L; increased dose to 1000mg Q8H with predicted AUC of 430 mg/L, trough of 12.4 mg/L. Next level to be drawn after 3 doses on 09/14 @1600
[2023-09-13] MEDS: Enoxaparin Sodium 40 MG/0.4 ML SYRINGE SUBCUT (17:41)
[2023-09-13] MEDS: vancomycin HCL 1,000 MG in 0.9 % Sodium Chloride 250 ML 270 MG IV (17:43)
[2023-09-13 19:48] VITALS: BP 140/94; PULSE 94; RESP 16; TEMP 36.6; O2SAT 97
[2023-09-13 20:30] LABS: Glucose, Whole Blood 122 mg/dL (60-115)
[2023-09-13] MEDS: gadobutroL 10 ML VIAL 9 ML IVPUSH (21:25)
[2023-09-13] MEDS: Insulin Glargine,Hum.rec.anlog 100 UNIT/ML 10 ML VIAL 15 UNIT SUBCUT (21:49)
[2023-09-14] MEDS: vancomycin HCL 1,000 MG in 0.9 % Sodium Chloride 250 ML 270 MG IV ×2 (01:48→09:37)
[2023-09-14 04:00] VITALS: BP 142/96; PULSE 93; RESP 16; TEMP 36.5; O2SAT 97
[2023-09-14 05:37] LABS: Creatinine Clr Calc Pharmacy 130.3; Estimated Glomerular Filt Rate > 60
[2023-09-14] MEDS: Omeprazole 20 MG CAPSULE.DR PO (05:56)
[2023-09-14] MEDS: cefTRIAXone sodium 1 GM in 0.9 % Sodium Chloride 50 ML IV (05:58)
[2023-09-14 07:25] VITALS: BP 148/93; PULSE 85; RESP 16; TEMP 36.2; O2SAT 96
[2023-09-14 07:59] LABS: Glucose, Whole Blood 141 mg/dL (60-115)
[2023-09-14] MEDS: Pioglitazone HCL 30 MG TABLET PO (08:24)
[2023-09-14] MEDS: FLUoxetine HCl 20 MG CAPSULE PO (08:24)
[2023-09-14] MEDS: 0.9 % Sodium Chloride Flush 3 ML SYRINGE IVFLUSH (08:26)
[2023-09-14] MEDS: Insulin Lispro 100 UNIT/ML 3 ML VIAL 10 UNIT SUBCUT (08:27)
[2023-09-14] MEDS: Insulin Glargine,Hum.rec.anlog 100 UNIT/ML 10 ML VIAL 25 UNIT SUBCUT (08:27)
[2023-09-14] MEDS: Acetaminophen 325 MG TABLET 650 MG PO (08:28)
--- NOTE | 2023-09-14 10:12 | PM.DS ---
DS: Providers Provider Date of Service: 09/14/23 Date of admission: 09/11/23 18:52 Primary care physician: Tomy Cannon PA-C Consults: 09/11/23 18:57 Consult to Wound Care Routine Reason for consultation: Infected diabetic foot wounds 09/13/23 11:21 Consult to Vascular Surgery [place]ine [place] [facility] [place] Reason for consultation: bilateral non-pressure ulcers for eval and rec DS: Diagnosis Discharge Diagnosis (1) Diabetic foot ulcer associated with type 2 diabetes mellitus: Status: Acute DS: Summary Hospital Course Hospital Course: from initial hpi: 43-year-old male with a PMH significant for?insulin dependent type 2 diabetes, HTN, GERD, hx of SBO, and depression who presents to the ED for evaluation of worsening wounds on his feet. Pt states symptoms began approximately 10 days ago when he was in the shower and noticed that both of his big toenails fell off. He then developed blisters all over his feet, some of which popped and discharge foul-smelling and cloudy fluid. Patient put Neosporin and silver alginate on his wounds, with most of those on his right foot responding well to the treatment. Those on his left foot did not show any evidence of healing, and continued to get worse and worse. The toenail on the 2nd digit on his left foot eventually also fell off. Patient reports he now has difficulty walking due to pain and also losing balance since he has had to change his gait to compensate for left foot pain. Patient denies any known trauma to his feet. Some chills but no measured fever. No nausea, vomiting, abdominal pain. Denies chest pain/pressure, palpitations. No shortness of breath. Patient previous has been to [facility] for chronic diabetic foot ulcers, last visit in February of 2023. In the ED pt was tachycardic up to 112 and hypertensive up to 171/104, vitals otherwise WNL. Labs were significant for elevated ESR of 60, C-reactive protein 5.72, random glucose 401, and alk-phos 150. No leukocytosis. Stable H&H. No electrolyte abnormalities. Renal function baseline. X-ray of left foot and ankle and right foot with no evidence of osteomyelitis. Pt was treated with IVF, insulin, vanc, and Zosyn. Pt will be admitted to the hospital for treatment further evaluation of diabetic foot infection. hospital course: Patient was admitted for cellulitis and ulcers of the bilateral lower extremities due to diabetes, uncontrolled with hyperglycemia. He was treated vancomycin ceftriaxone. Cultures were negative. He was seen by wound care and local care was recommended. He was seen by vascular surgery who felt patient had good pulses. Patient underwent MRI which did not show any evidence of deep infection. Will be discharged on 10 more days of doxycycline. For hypertension was continued on lisinopril. For GERD was continued on PPI. For mood disorder was continue fluoxetine and hydroxyzine. Patient is feeling better will be discharged home. Time Attestation Discharge coordination time: Greater than 30 minutes Quality: Safe Use of Opioids Does Pt have an Active Cancer Diagnosis on the Problem List?: No Quality: Stroke Does the patient have a stroke diagnosis?: No Physical Exam Vital Signs: Vital Signs: Last Vital Signs Temp 97.2 F 09/14/23 07:25 Pulse 85 09/14/23 07:25 Resp 16 09/14/23 07:25 BP 148/93 H 09/14/23 07:25 Pulse Ox 96 09/14/23 07:25 O2 Del Method Room Air 09/14/23 07:25 BMI result Body Mass Index 27.6 Const: General: cooperative, healthy appearing and comfortable Orientation/consciousness: oriented to person, oriented to place and oriented to time HEENT: Head: Yes normal to inspection Neck: Neck: Yes normal visual inspection Carotids: no bruits Chest: Chest palpation & inspection: normal inspection of the chest Resp: Effort & Inspection: normal respiratory effort and able to speak in complete sentences Auscultation: clear to auscultation bilaterally, no crackles, no rales, no rhonchi and no wheezes Cardio: Other: Palpable DP pulses bilaterally Rate: regular rate Rhythm: regular rhythm Heart sounds: S1 normal heart sound present and S2 normal heart sound present Bruits: no carotid bruits Peripheral pulses: Peripheral pulses 2+ throughout GI: Inspection: Yes normal to inspection Skin: Other: Left 2nd toe ulcer Wounds: no wounds Hair: normal Neuro: General: oriented to person, oriented to place and oriented to time Cranial nerves: Yes CN's II-XII intact bilaterally and Yes Normal hearing present Cognition (Neuro): normal cognition Motor exam (neuro): 5/5 motor strength present throughout Extrem: Other: venous exam: No significant superficial varicosities or spider telangiectasias, minimal edema General: No clubbing, No cyanosis and No edema Psych: Appearance: grossly normal Mental Status: mental status grossly normal Speech and movement: Normal speech and movement present DS: Data Data Completed and Pending Labs on day of discharge: Laboratory Results - last 24 hr 09/13/23 09/13/23 09/13/23 11:21 15:59 16:09 Creatinine Estim Creat Clear Calc Estimated GFR POC Glucose 122 H 98 Random Vancomycin 10.2 L 09/13/23 09/14/23 09/14/23 19:49 04:30 07:27 Creatinine 0.77 Estim Creat Clear Calc 130.3 Estimated GFR > 60 POC Glucose 122 H 141 H Random Vancomycin Preliminary micro results at discharge 09/11/23 17:17 Blood Culture - Preliminary Blood - Venous No growth after 48 hours. 09/11/23 14:23 Blood Culture - Preliminary Blood - Venous No growth after 48 hours. Discharge Plan Discharge Anticipated Discharge Date/Time: 09/14/23 10:09 Patient Disposition: Home, Self-Care Discharge Diagnosis: dfu Referrals: Tomy Cannon PA-C [Primary Care Provider] - 1 Week Discharge Medications: New doxycycline hyclate 100 mg tablet 100 mg PO BID Qty: 20 0RF Continued fluoxetine 20 mg capsule 20 mg PO DAILY 30 Days Qty: 30 3RF pantoprazole 20 mg tablet,delayed release (DR/EC) 40 mg PO DAILY@0630 insulin glargine [Lantus Solostar U-100 Insulin] 100 unit/mL (3 mL) insulin pen 32 unit subcut BEDTIME Patient Comments: only took half dose insulin lispro [Humalog U-100 Insulin] 100 unit/mL solution 10 unit subcut TID pioglitazone [Actos] 30 mg tablet 30 mg PO DAILY Qty: 30 3RF Discharge Orders: Discharge Order (Routine); Ordered 09/14/23 Ordered By: Slava Lynn Diet: Advance to usual diet Activity on Discharge: As tolerated Stand Alone Forms: Patient Portal Discharge page Care Plan Goals: recovery Health Concerns: dfu Plan of Treatment: 10 days doxy, Right Lateral Foot - Cleanse with NS moist gauze, pat dry. Apply xeroform gauze, cover with foam dressing. Change Daily. Left great and 2nd toe - Cleanse with Betadine, allow to dry. Protect from friction and trauma with dry gauze. copmression wraps Assessment: see above
--- NOTE | 2023-09-14 10:30 | MHC.CM.PN ---
EMR REVIEWED. PATIENT IS MEDICALLY CLEARED FOR DC HOME SELF CARE ON PO ABX. PATIENT WILL FOLLOW UP WITH WOUND CLINIC OUT PATIENT AND IS ABLE TO CHANGE HIS OWN DRESSING IN BETWEEN WOUND CLINIC VISITS. RN WILL SEND HOME WITH SUPPLIES. PARIMUTUEL TICKET SELLER AWARE. PATIENT HAS CAR IN THE LOT AND WILL TRANSPORT SELF HOME. RN AWARE.
== END 2023-09-14 10:56 | disposition home or self-care (01) | DRG 380 ==
LOC: HO.ED 19:35 → HO.EDOVER 19:46 → HO.S3 19:51
PROVIDERS: Physician Assistant Medical; Student in an Organized Health Care Education/Training Program; Admitting Provider Student in an Organized Health Care Education/Training Program; Emergency Provider Emergency Medicine; PCP Physician Assistant; Visit Provider Internal Medicine
DX: E11.628 Type 2 diabetes mellitus with other skin complications (principal); L97.522 Non-pressure chronic ulcer of other part of left foot with fat layer exposed; L97.519 Non-pressure chronic ulcer of other part of right foot with unspecified severity; E11.610 Type 2 diabetes mellitus with diabetic neuropathic arthropathy; E11.621 Type 2 diabetes mellitus with foot ulcer; L03.116 Cellulitis of left lower limb; F32.A Depression, unspecified; E11.65 Type 2 diabetes mellitus with hyperglycemia; I10 Essential (primary) hypertension; K21.9 Gastro-esophageal reflux disease without esophagitis; Z79.4 Long term (current) use of insulin; Z79.899 Other long term (current) drug therapy
CPT/HCPCS: 36415; 73610; 73630; 73720; 80048; 80076; 80202; 82010; 82565; 82947; 83036; 83605; 83690; 83735; 85025; 85652; 86140; 87040; 99285; A9585; J0696; J1650; J2543; J3370; J3371

== ENCOUNTER → 2023-09-11 18:52 | Outpatient (BNV) | payer OTHER, SELFPAY | PROVIDERS: Admitting Provider Student in an Organized Health Care Education/Training Program; Emergency Provider Emergency Medicine; PCP Physician Assistant; Visit Provider Surgery Vascular Surgery | DX: E11.621 Type 2 diabetes mellitus with foot ulcer (principal); L97.522 Non-pressure chronic ulcer of other part of left foot with fat layer exposed | CPT/HCPCS: 99222 ==

== ENCOUNTER → 2023-09-11 18:52 | Outpatient (BNV) | payer OTHER, SELFPAY | PROVIDERS: Admitting Provider Student in an Organized Health Care Education/Training Program; Emergency Provider Emergency Medicine; PCP Physician Assistant; Visit Provider Student in an Organized Health Care Education/Training Program | DX: E11.621 Type 2 diabetes mellitus with foot ulcer (principal); L97.522 Non-pressure chronic ulcer of other part of left foot with fat layer exposed | CPT/HCPCS: 99223; 99232; 99233; 99239 ==

== ENCOUNTER 2023-09-20 13:21 | Outpatient (AMB) | payer OTHER, SELFPAY ==
[2023-09-20 13:23] VITALS: BP 144/82; PULSE 85; RESP 17; O2SAT 97
--- NOTE | 2023-09-20 13:23 | A.OFFPC_ITS ---
Vital Signs 3 09/20/23 13:23 Height 5 ft 10 in Weight 209 lb 4 oz BMI 30.0 BP 144/82 H Blood Pressure Location Rt brachial Position Sitting Respiration 17 Pulse 85 Pulse Source Pulse Oximeter Pulse Oximetry (%) 97 Oxygen Delivery Method Room Air Intake Visit Reasons: [facility] diabetic foot infection Linking Machine Operator Required: No Accompanied by: Self / Same As Patient Allergies metformin Adverse Reaction (Intermediate, Verified 09/20/23 13:45) GI side effects Medication List - Last Reconciled 09/20/23 by Tomy Cannon PA-C doxycycline hyclate 100 mg PO BID fluoxetine 20 mg PO DAILY 30 days insulin glargine (Lantus Solostar U-100 Insulin) 32 units (0.32 mL) subcut BEDTIME 90 days insulin lispro (Humalog U-100 Insulin) 10 units (0.1 mL) subcut TID 90 days pantoprazole 40 mg PO DAILY@0630 pen needle, diabetic (BD Lula 2nd Gen Pen Needle) As directed pioglitazone (Actos) 30 mg PO DAILY Tobacco use date assessed: 09/20/23 Dental Screening Dental Screen Date: 09/20/23 Did you have a dental visit in the last 12 months?: No Did you have a dental problem in the last 6 months where you did not have access to dental care?: No Was dental information given to patient?: Patient has dentist HPI [facility] diabetic foot infection 2 HPI0 Details Patient is a 43-year-old male here today for hospital discharge follow- up. Patient has a past medical history significant for major depressive disorder, hypertension uncontrolled type 2 diabetes. Patient was admitted for acute cellulitis and ulcer of the lower extremity due to his uncontrolled type 2 diabetes. He was treated with vancomycin ceftriaxone. Vascular specialty consulted and felt there was no vascular intervention needed. Wound cultures were negative. MRI did not show any deep infection or osteomyelitis. Patient was discharged with script for doxycycline. Currently doing much better. Does have outpatient wound care appointment set up. He has been started on insulin and preprandial insulin and reports his blood sugars have been better. He would like a new script for continues glucose monitor for better tracking his blood sugars. He also needs a work note to return back to work in full duty [employer] 2 TCM Information0 Date of Discharge 09/14/23 Discharged From [facility] Medical History (Updated 09/20/23 @ 13:56 by Tomy Cannon PA-C) Small bowel obstruction Hx of intestinal obstruction Foot callus Erectile disorder due to medical condition in male patient Knee pain, right NIDDY (non-insulin dependent diabetes mellitus in young) Surgical History Hx of esophagogastroduodenoscopy History of appendectomy History of hernia surgery Family History Mother Diabetes High blood pressure Social History Household Members: Family Housing: House Do you presently have visiting nurse or other home services: No Alcohol intake: current Alcohol intake frequency: does not drink Alcohol type: beer Patient Tobacco Use Status: Never used Tobacco e-Cigarette/Vaping Use: Never Used Second Hand Smoke Exposure: No service: No Current occupational status: employed Current occupation: right handed Cognitive needs: No Hearing needs: No Vision needs: No Questionnaire PHQ-9 Over the last 2 weeks, how often have you been bothered by any of the following problems? 1. Little interest or pleasure in doing things: more than half the days 2. Feeling down, depressed, or hopeless: nearly every day 3. Trouble falling or staying asleep, or sleeping too much: more than half the days 4. Feeling tired or having little energy: several days 5. Poor appetite or overeating: more than half the days 6. Feeling bad about yourself - or that you are a failure or have let yourself or your family down: several days 7. Trouble concentrating on things, such as reading the newspaper or watching television: several days 8. Moving or speaking so slowly that other people could have noticed. Or the opposite - being so fidgety or restless that you have been moving around a lot more than usual: not at all 9. Thoughts that you would be better off or of hurting yourself in some way: not at all Total score: 12 Depression Screening Interpretation: Positive Depression Screening Follow-up: Existing condition and In treatment Depression Screening Done: Yes 53957 - PHQ-9 Billing: Yes Source: Developed by Drs. Josh Nava, Shelby B.WManuel Astorga and colleagues, with an educational zaid from [employer]. Thrive Questionnaire Date Thrive assessed: 09/20/23 I am a: Patient What is your living situation today?: I have a steady place to live Within the past 12 months, did the food you bought not last and you didn't have the money to get more?: Never true Within the past 12 months, did you worry whether your food would run out before you got money to buy more?: Never true Do you have trouble paying for medicines?: No Do you have trouble getting transportation to medical appointments?: No Do you have trouble paying your heating and electricity bill?: No Do you have trouble taking care of your child, family member or friend?: No Do you have trouble with day-to-day activities such as bathing, preparing meals, shopping, managing finances, etc.?: No Are you currently unemployed and looking for a job?: No Are you interested in more education?: No Please select the resources that you would like help with: None Currently or been in a relationship where the following occur: no concerns reported THRIVE Score: 0 AUDIT C Alcohol Use Questionnaire (AUDIT-C) 1. How often do you have a drink containing alcohol?: 2-3 times a week 2. How many drinks containing alcohol do you have on a typical day when you are drinking?: 1 or 2 Total Score: 3 JOLIE-7 AMB Questionnaire JOLIE-7 Date JOLIE - 7 assessed: 09/20/23 Feeling nervous, anxious, or on edge: 0 = Not at all Not being able to stop or control worryin = Not at all Worrying too much about different things: 0 = Not at all Trouble relaxin = Not at all Being so restless that it is hard to sit still: 0 = Not at all Becoming easily annoyed or irritable: 0 = Not at all Feeling afraid as if something awful might happen: 0 = Not at all Total JOLIE-7 score (0-4 normal; 5-9 mild; 10-14 moderate; 15-21 severe): 0 Source: Developed by Drs. Josh Nava, Manuel Becerril and colleagues, with an educational zaid from [employer]. JOLIE-7 Assessment Billing JOLIE-7 Assessment Tool: JOLIE-7 Assessment [id number] Physical exam (Primary Care) Vital Signs: Last Vital Signs Pulse 85 09/20/23 13:23 Resp 17 09/20/23 13:23 BP 144/82 H 09/20/23 13:23 Pulse Ox 97 09/20/23 13:23 Oxygen Delivery Method Room Air 09/20/23 13:23 BMI result Body Mass Index 30.0 Tobacco/Smoking Status: Tobacco use Status Tobacco use date assessed 09/20/23 09/20/23 13:33 Patient Tobacco Use Status Never used Tobacco 09/20/23 13:23 e-Cigarette/Vaping Use Never Used 09/20/23 13:23 PHQ-9: PHQ-9 Score PHQ-9: Total score 12 09/20/23 13:33 Depression Screening Interpretation: Positive Depression Screening Follow-up: Existing condition and In treatment Thrive Assessment: Date of Thrive Assessment Date Thrive assessed 09/20/23 09/20/23 13:33 Currently or been in a relationship where the following occur: no concerns reported Extrem Ankle/foot/toe images: 2 1. BILATERAL LATERAL FOOT ULCERATIONS NOTED. No purulent drainage or surrounding erythema. STILL DOES HAVE PEDAL EDEMA TO THE LEVEL OF HIGH ANKLE Assessment and Plan Assessment & Plan (1) Diabetic foot ulcer associated with type 2 diabetes mellitus: Code(s): E11.621 - Type 2 diabetes mellitus with foot ulcer; L97.509 - Non-pressure chronic ulcer of other part of unspecified foot with unspecified severity Qualifiers: Diabetic foot ulcer location: toe Laterality: left Non-pressure ulcer stage: with fat layer exposed Qualified Code(s): E11.621 - Type 2 diabetes mellitus with foot ulcer; L97.522 - Non-pressure chronic ulcer of other part of left foot with fat layer exposed Plan: Has been better since been taking better control of his diabetes and on antibiotics. Does have upcoming visit with wound care. Has been doing home wound care with Betadine on his foot ulcers. (2) DMII (diabetes mellitus, type 2): Comment: Diabetes not well controlled- Code(s): E11.9 - Type 2 diabetes mellitus without complications Qualifiers: Diabetes mellitus half-way insulin use: without adult basic education instructor use Diabetes mellitus complication status: with hyperglycemia Qualified Code(s): E11.65 - Type 2 diabetes mellitus with hyperglycemia Plan: Patient's type 2 diabetes uncontrolled. Has been started on insulin and preprandial insulin. Will supply him with a continues glucose monitor for better control of his blood sugars. Goal A1c is to be below 7.0 (3) Lower extremity edema: Code(s): R60.0 - Localized edema Plan: Continues to have bilateral lower extremity pedal edema likely secondary to his uncontrolled type 2 diabetes. Advised on compression socks and patient agrees and will buy them [id number]. Orders: Orders 2 Comprehensive [place]. Panel Fast 3 Months E11.65 - Type 2 diabetes mellitus with hyperglycemia Hemoglobin A1c 3 Months E11.65 - Type 2 diabetes mellitus with hyperglycemia Microalbumin, Random (w Creat) 3 Months E11.65 - Type 2 diabetes mellitus with hyperglycemia Complete Blood Count no Diff 3 Months E11.65 - Type 2 diabetes mellitus with hyperglycemia Referrals 2 Nutrition/Dietitian Referral E11.65 - Type 2 diabetes mellitus with hyperglycemia Ophthalmology Referral E11.65 - Type 2 diabetes mellitus with hyperglycemia Medications: New 2 flash glucose sensor (FreeStyle Elaine 2 Sensor kit) As directed 1 ea 6RF E11.65 - Type 2 diabetes mellitus with hyperglycemia Changed 2 From pioglitazone (Actos) 30 mg PO DAILY 30 tabs 3RF E11.65 - Type 2 diabetes mellitus with hyperglycemia To pioglitazone (Actos) 30 mg PO DAILY 90 days 90 tabs 3RF E11.65 - Type 2 diabetes mellitus with hyperglycemia Coding Level of Care Code Est Pt Level 4 (32505) Diagnoses Diabetic ulcer of toe of left foot associated with type 2 diabetes mellitus, with fat layer exposed E11.621; L97.522 Diabetic foot ulcer location: toe Laterality: left Non-pressure ulcer stage: with fat layer exposed Type 2 diabetes mellitus with hyperglycemia, without long-term current use of insulin E11.65 Diabetes mellitus adult basic education instructor insulin use: without adult basic education instructor use Diabetes mellitus complication status: with hyperglycemia Lower extremity edema R60.0 Additional Codes JOLIE-7 Assessment Billing - JOLIE-7 Assessment Tool: JOLIE-7 Assessment [id number] ([id number])
== END 2023-09-20 14:08 | disposition home or self-care (01) ==
PROVIDERS: PCP Physician Assistant; Visit Provider Physician Assistant
DX: E11.621 Type 2 diabetes mellitus with foot ulcer (principal); L97.522 Non-pressure chronic ulcer of other part of left foot with fat layer exposed; E11.65 Type 2 diabetes mellitus with hyperglycemia; R60.0 Localized edema
CPT/HCPCS: 99214

== ENCOUNTER 2023-09-24 10:21 | Outpatient (RCR) | payer OTHER, SELFPAY | END 2023-11-22 12:08 | disposition home or self-care (01) | LOC: HO.WCC 10:21 | PROVIDERS: PCP Physician Assistant; Visit Provider Physician Assistant | DX: E11.621 Type 2 diabetes mellitus with foot ulcer (principal); L97.512 Non-pressure chronic ulcer of other part of right foot with fat layer exposed | CPT/HCPCS: 97597; 99213 ==

== ENCOUNTER 2023-10-19 09:08 | Outpatient (AMB) | payer OTHER, SELFPAY ==
--- NOTE | 2023-10-19 09:19 | A.OFFVIS_ITS ---
Intake VS Expanded 10/19/23 09:20 10/19/23 11:16 Height 5 ft 10 in 5 ft 10 in Weight 209 lb 10.554 oz 210 lb BMI 30.1 30.1 Intake Visit Reasons: T2DM/ LVM Allergies metformin Adverse Reaction (Intermediate, Verified 09/20/23 13:45) GI side effects HPI Nutrition Presentation Details Pt presents for MNT for T2DM. Pt was referred by NURA Morales , [facility] [place] D[place] with T2 DM, in 2009 Insulin Humalog 10 units T!D - reports taking after or before meals lantus 32 at night Actos 30 mg BG: Did not bring scanner to this appt Typical meal: 5am coffee milk/cream sugary (dd) B: cereal/milk at work (at school) or Rice/beans, chicken, water , powerade zero - L: school - pizza or burger/fr 5-6 pm dinner: rice/beans, chicken , fr ied plantains, water diet sodas 10- pm coffee and cheese and crackers physical activity: --- etoh--- smoking--- WFQ-Sylyzmd-Hr.Jeor Equation Height 5 ft 10 in Weight 210 lb Resting Metabolic Rate 1866.12 Calculated Activity Level Sedentary Calories Needed to Maintain Weight 2239.34 Diagnosis Nutrition problem #1 food nutri know defi As related to (etiology) #1 diagnosis As evidenced by (sign/symptom) #1 abnormal lab values (A1c at 11.7% on 08/2023) and knowledge deficit of diet Monitoring/Goals Nutrition problem monitoring HgbA1c, level of knowledge/skill, total CHO intake and oral fluids Nutrition goal/outcome HgbA1c <7% in 3 months, list 3 CHO foods and list 3 high fiber foods Outcome progress verbalized understanding Learning/Education Readiness to learn good Stages of change preparation Educational materials provided Yes (meal planning) Most Recent Diabetes Results: Creatinine 0.77 mg/dL (0.5-1.4) 09/14/23 Blood Urea Nitrogen 13 mg/dL (9-16) 09/13/23 Sodium 139 mmol/L (135-145) 09/13/23 Potassium 3.4 mmol/L (3.3-5.1) 09/13/23 Chloride 105 mmol/L (96-108) 09/13/23 Carbon Dioxide 25 mmol/L (22-29) 09/13/23 Calcium 8.5 mg/dL (8.4-10.2) 09/13/23 AST 18 U/L (5-37) 09/11/23 ALT 23 U/L (0-40) 09/11/23 Total Protein 7.9 g/dL (6.5-8.0) 09/11/23 Albumin 3.6 g/dL (3.5-5.0) 09/11/23 PFSH Medical History (Updated 10/19/23 @ 11:23 by Lisa Kauffman, RD, LDN) Small bowel obstruction Hx of intestinal obstruction Foot callus Erectile disorder due to medical condition in male patient Knee pain, right NIDDY (non-insulin dependent diabetes mellitus in young) Surgical History Hx of esophagogastroduodenoscopy History of appendectomy History of hernia surgery Family History Mother Diabetes High blood pressure Social History Household Members: Family Housing: House Do you presently have visiting nurse or other home services: No Alcohol intake: current Alcohol intake frequency: does not drink Alcohol type: beer Patient Tobacco Use Status: Never used Tobacco e-Cigarette/Vaping Use: Never Used Second Hand Smoke Exposure: No service: No Current occupational status: employed Current occupation: right handed Cognitive needs: No Hearing needs: No Vision needs: No Assessment & Plan Assessment & Plan (1) DMII (diabetes mellitus, type 2): Comment: A1c 11.7% (08/2023) Code(s): E11.9 - Type 2 diabetes mellitus without complications Qualifiers: Diabetes mellitus long-term insulin use: without fishing vessel deckhand use Diabetes mellitus complication status: with hyperglycemia Qualified Code(s): E11.65 - Type 2 diabetes mellitus with hyperglycemia Plan: Wt: 95 Kg ( 10/2023 ) Est kcal needs as per MSJ: 2200 (40% carb, 30% protein/fat) Est fluid needs as per 25-30 ml/d: 2863 Est prot per day as per 1 -1.5 g/kg bw: 95-114g Recommend fiber intake : 8-10 g per day and gradually increase to 25-28 g per day for women and 35-38 g for men or as tolerated Recommend sodium intake per day : less than 1500 mg less than 2000 mg Educated patient on: ( R = reviewed V = verbalizes understanding N/R = needs review N/A = not applicable * Food sources of carbohydrate, adequate serving sizes and its role in various health conditions: R * Differences between complex carbohydrates a simple carbohydrates, role of fiber in diet: R * Lean protein sources of foods: R * Differences between types of fats and role in diet (mono on saturated fat fatty acids, saturated fatty acids, trans fats): N/R * Food sources of sodium in salt and healthy modifications for heart health in kidney health: N/R * Vitamins and minerals: N/R * Healthy plate method concept: R * Physical activity: Benefits a precaution: N/R * Hypoglycemia protocol (rule of 15): R * Dietary prevention of Hyperglycemia: R * Take Humalog prior to meal instead of after meal to prevent hyperglycemia /hyp oglycemia: R Patient Instructions: Follow healthy plate method reducing total carb at meal to 75 g or less and 0-20 g of carbs as snack Consider having a protein supplement once day as snack - see list of choices Drink water with meals /snacks monitor bg fasting and 2hours after a meal call for questions prior to next appt Coding Level of Care Code Nutr Indiv Intake (30213) Diagnoses Type 2 diabetes mellitus with hyperglycemia, without long-term current use of insulin E11.65 Diabetes mellitus fishing vessel deckhand insulin use: without long-term use Diabetes mellitus complication status: with hyperglycemia Time Spent (min) 40
[2023-10-19 09:20] VITALS: BMI 30.1
[2023-10-19 11:16] VITALS: BMI 30.1
== END 2023-10-19 10:21 | disposition home or self-care (01) ==
PROVIDERS: PCP Physician Assistant; Visit Provider Dietitian, Registered
DX: E11.65 Type 2 diabetes mellitus with hyperglycemia (principal)

== ENCOUNTER → 2023-10-19 09:08 | Outpatient (BNVA) | payer OTHER, SELFPAY | PROVIDERS: PCP Physician Assistant; Visit Provider Dietitian, Registered | DX: E11.65 Type 2 diabetes mellitus with hyperglycemia (principal); Z71.3 Dietary counseling and surveillance | CPT/HCPCS: 97802 ==

== ENCOUNTER 2023-12-07 14:13 | Outpatient (AMB) | payer OTHER, SELFPAY ==
[2023-12-07 14:21] VITALS: BMI 31.5
--- NOTE | 2023-12-07 14:21 | A.OFFVIS_ITS ---
Intake VS Expanded 12/07/23 14:21 Height 5 ft 10 in Weight 219 lb 9.286 oz BMI 31.5 Intake Visit Reasons: T2DM Allergies metformin Adverse Reaction (Intermediate, Verified 09/20/23 13:45) GI side effects HPI Nutrition Presentation Details Pt presents for MNT f/u for T2DM Pt reports gradually working on diet modifications Challenges : food choices in the evening, increased appetite Pt brought glucometer, 14 d bg average at 194 mg/dl BG targets as follow: 44% within target 37% above 180 mg/dl 18% above 250 mg/dl 1% below 70 mg/dl 0 below 54 mg/dl Pt reports taking dm meds as rx by PCP, Lantus 32 units/d, Humalog 10 units TID ( may skip lunch dosage) , Actos 40 mg/d Pt reports treating hypoglycemia with large c of juice and pastry Reports increased appetite in evening and choosing empty calorie foods Today will review hypoglycemia treatment and review nutrient dense/low sodium food choices Most Recent Diabetes Results: Creatinine 0.77 mg/dL (0.5-1.4) 09/14/23 Blood Urea Nitrogen 13 mg/dL (9-16) 09/13/23 Sodium 139 mmol/L (135-145) 09/13/23 Potassium 3.4 mmol/L (3.3-5.1) 09/13/23 Chloride 105 mmol/L (96-108) 09/13/23 Carbon Dioxide 25 mmol/L (22-29) 09/13/23 Calcium 8.5 mg/dL (8.4-10.2) 09/13/23 AST 18 U/L (5-37) 09/11/23 ALT 23 U/L (0-40) 09/11/23 Total Protein 7.9 g/dL (6.5-8.0) 09/11/23 Albumin 3.6 g/dL (3.5-5.0) 09/11/23 [facility] Medical History (Updated 10/19/23 @ 11:23 by Lisa Kauffman, RD, LDN) Small bowel obstruction Hx of intestinal obstruction Foot callus Erectile disorder due to medical condition in male patient Knee pain, right NIDDY (non-insulin dependent diabetes mellitus in young) Surgical History Hx of esophagogastroduodenoscopy History of appendectomy History of hernia surgery Family History Mother Diabetes High blood pressure Social History Household Members: Family Housing: House Do you presently have visiting nurse or other home services: No Alcohol intake: current Alcohol intake frequency: does not drink Alcohol type: beer Patient Tobacco Use Status: Never used Tobacco e-Cigarette/Vaping Use: Never Used Second Hand Smoke Exposure: No service: No Current occupational status: employed Current occupation: right handed Cognitive needs: No Hearing needs: No Vision needs: No Assessment & Plan Assessment & Plan (1) DMII (diabetes mellitus, type 2): Comment: A1c 11.7% (08/2023) Code(s): E11.9 - Type 2 diabetes mellitus without complications Qualifiers: Diabetes mellitus group home insulin use: without intermediate designer use Diabetes mellitus complication status: with hyperglycemia Qualified Code(s): E11.65 - Ty pe 2 diabetes mellitus with hyperglycemia Plan: Wt: 95 Kg ( 10/2023 ), 100 K (11/2023) Est kcal needs as per MSJ: 2200 (40% carb, 30% protein/fat) Est fluid needs as per 25-30 ml/d: 2863 Est prot per day as per 1 -1.5 g/kg bw: 95-114g Recommend fiber intake : 8-10 g per day and gradually increase to 25-28 g per day for women and 35-38 g for men or as tolerated Recommend sodium intake per day : less than 1500 mg less than 2000 mg Educated patient on: ( R = reviewed V = verbalizes understanding N/R = needs review N/A = not applicable * Food sources of carbohydrate, adequate serving sizes and its role in various health conditions: R * Differences between complex carbohydrates a simple carbohydrates, role of fiber in diet: R * Lean protein sources of foods: R * Differences between types of fats and role in diet (mono on saturated fat fatty acids, saturated fatty acids, trans fats): R * Food sources of sodium in salt and healthy modifications for heart health in kidney health: R * Vitamins and minerals: N/R * Healthy plate method concept: R * Physical activity: Benefits a precaution: N/R * Hypoglycemia protocol (rule of 15): R * Dietary prevention of Hyperglycemia: R * Take Humalog prior to meal instead of after meal to prevent hyperglycemia /hypoglycemia: R Patient Instructions: Read food labels paying attention to serving size total carbs, and sodium Continue working on reducing on total carbs and salt in the foods Choose fruits smoothies / protein shake, low sodium option as bedtime snack - see list of options Select cereals lower in sugar/salt - see list of options Take all diabetes medications as prescribed by your primary care provider call for questions Coding Level of Care Code Nutr Indiv Subseq (30380) Diagnoses Type 2 diabetes mellitus with hyperglycemia, without long-term current use of insulin E11.65 Diabetes mellitus group home insulin use: without intermediate designer use Diabetes mellitus complication status: with hyperglycemia Time Spent (min) 45
== END 2023-12-07 15:09 | disposition home or self-care (01) ==
PROVIDERS: PCP Physician Assistant; Visit Provider Dietitian, Registered
DX: E11.65 Type 2 diabetes mellitus with hyperglycemia (principal)

== ENCOUNTER → 2023-12-07 14:13 | Outpatient (BNVA) | payer OTHER, SELFPAY | PROVIDERS: PCP Physician Assistant; Visit Provider Dietitian, Registered | DX: E11.65 Type 2 diabetes mellitus with hyperglycemia (principal); Z71.3 Dietary counseling and surveillance | CPT/HCPCS: 97803 ==

== ENCOUNTER 2023-12-14 08:59 | Inpatient (IN) | payer OTHER, SELFPAY ==
[2023-12-14] VITALS (9 sets, daily range): BP systolic 125–158; BP diastolic 72–110; PULSE 100–109; RESP 18–20; TEMP 36.1–36.9; O2SAT 88–98; BMI 31.3; BMI 30.2
--- NOTE | ~2023-12-14 | CT_ITS ---
EXAMINATION: CT ANGIOGRAM OF THE CHEST WITH AND WITHOUT CONTRAST (CT PULMONARY ANGIOGRAM FOR PE) CLINICAL INFORMATION: Reason for Exam hypoxic, elevated d dimer COMPARISON: Chest x-ray December 14, 2023. CTA of the chest October 25, 2009 TECHNIQUE: Prior to contrast administration, noncontrast localization images were obtained. Subsequently, multidetector volumetric imaging was performed from the thoracic inlet to below the diaphragms following the administration of 65 mL Omnipaque 350 intravenous contrast. No contrast reaction reported Sagittal, coronal, and MIP oblique sagittal reformatted images were obtained on the CT workstation, uploaded to PACS, and reviewed. This CT examination was performed using dose optimization techniques as appropriate, variously including the following: *Automated exposure control *Adjustment of mA and/or kV according to patient size (this includes techniques or standardized protocols for targeted exams where dose is matched to indication/reason for exam; i.e. extremities or head) *Use of iterative reconstruction technique Total exam dose-length product 397 mGy-cm FINDINGS: QUALITY OF STUDY/CONTRAST BOLUS: Satisfactory. PULMONARY ARTERIES: No pulmonary emboli. THORACIC AORTA: No aneurysm. LUNG: Bibasilar compressive atelectasis. Central bronchial airways are open. PLEURA: Moderate to large bilateral pleural effusions layering dependently. MEDIASTINUM: Normal heart size. No pericardial effusion. No hilar or mediastinal lymphadenopathy. No evidence of septal bowing or right heart strain. CORONARY ARTERY CALCIFICATION: None visualized on this study. CHEST WALL/AXILLA: No axillary or internal mammary lymphadenopathy. OSSEOUS STRUCTURES: No acute or suspicious osseous abnormality. UPPER ABDOMEN: Unremarkable. No reflux of contrast into the hepatic veins to suggest elevated right heart pressures. CT/CT angio chest PE protocol IMPRESSION: 1. No evidence of pulmonary embolism. 2. Moderate to large bilateral pleural effusions. Bibasilar compressive atelectasis. VTE: negative.
--- NOTE | ~2023-12-14 | XR_ITS ---
EXAMINATION: XR CHEST CLINICAL INFORMATION: Cough. Difficulty breathing COMPARISON: None available. TECHNIQUE: 2 views of the chest were obtained. FINDINGS: Mild cardiomegaly with slight distention of the pulmonary vessels. Bibasilar edema or atelectasis. Small effusions. XR/XR chest 2V IMPRESSION: Small effusions in the appearance of mild congestive change. This could be technical. Mild bibasilar pneumonia could give a similar appearance.
--- NOTE | 2023-12-14 09:18 | ECG_ITS ---
Test Reason : chest tightness Blood Pressure : / mmHG Vent. Rate : 109 BPM Atrial Rate : 109 BPM P-R Int : 142 ms QRS Dur : 094 ms QT Int : 360 ms P-R-T Axes : 026 001 073 degrees QTc Int : 484 ms Sinus tachycardia Otherwise normal ECG When compared with ECG of 29-SEP-2019 00:13, No significant change was found Referred By: Generic ED Physician Electronically Signed By:ALICJA CAMPBELL
[2023-12-14 09:36] LABS: MANUAL DIFF FLAG NO
[2023-12-14 09:40] LABS: Basophils Percent Auto 0.7 % (0-2); Eosinophils Absolute Auto 0.2 X10*3/uL (0.0-0.4); Eosinophils Percent Auto 2.4 % (0-4); Hematocrit 39.9 % (42.0-52.0); Hemoglobin 13.7 g/dl (14.0-18.0); Imm Gran Abs Auto 0.01 X10*3/uL (0.00-0.03); Imm Gran Pct Auto 0.2 % (0.0-0.4); Lymphocytes Absolute Auto 1.5 X10*3/uL (1.2-4.9); Lymphocytes Percent Auto 23.9 % (20-40); Mean Corpuscular HGB Conc 34.3 g/dl (31.0-36.0); Mean Corpuscular Hemoglobin 28.2 pg (27.0-33.0); Mean Corpuscular Volume 82.3 fL (80.0-98.0); Monocytes Absolute Auto 0.4 X10*3/uL (0.1-1.2); Monocytes Percent Auto 6.7 % (2-11); Neutrophils Absolute Auto 4.1 x10*3/uL (2.0-8.3); Neutrophils Percent Auto 66.1 % (45-73); Platelet Count 140 X10*3/uL (160-400); Red Blood Count 4.85 X10*6/uL (4.60-5.80); Red Cell Distribution Width 13.9 % (11.0-16.0); White Blood Count 6.2 X10*3/uL (4.8-10.8)
[2023-12-14 09:54] LABS: COVID-19 Test Negative (Negative); IDNOW Serial# 152EDE1D
[2023-12-14 09:55] LABS: IDNOW Serial# 08D9AD1C; Influenza A Negative (Negative); Influenza B2 Negative (Negative)
--- NOTE | 2023-12-14 09:55 | ED.GENADULT ---
HPI - General Adult General Chief complaint: General Medical Stated complaint: High Blood Pressure Low Oxygen Time Seen by Provider: 12/14/23 09:54 Source: patient Mode of arrival: ambulatory Limitations: no limitations History of Present Illness HPI narrative: Patient is a 43-year-old male with history of T2 DM, HTN, MDD, GERD presenting to the emergency department with complaint of cough and shortness of breath for the past 2 weeks. States cough is occasionally productive. Denies fevers. Denies chest pain or palpitations. Reports that he feels he is unable to take a deep breath without coughing. States that his oxygen was checked by a nurse at work and was found to be 83% on room air, BP noted to be elevated. He states he has not currently on any antihypertensive medications. Denies any recent calf pain or swelling. Reports associated lightheadedness with coughing episodes. MD complaint: Cough, dyspnea Onset (ago): week(s) Location: chest Associated symptoms: cough and shortness of breath Treatments prior to arrival: none Related Data Home Medications ?Medication ?Instructions ?Recorded ?Confirmed pantoprazole 20 mg tablet,delayed 40 mg PO DAILY@0630 09/12/23 09/20/23 release pen needle, diabetic 32 gauge x #1,200 ea 09/20/23 09/20/23 (BD Lula 2nd Gen Pen Needle) Previous Rx's ?Medication ?Instructions ?Recorded fluoxetine 20 mg capsule 20 mg PO DAILY 30 days #30 caps 02/22/23 doxycycline hyclate 100 mg tablet 100 mg PO BID #20 tabs 09/14/23 insulin glargine 100 unit/mL (3 32 unit (0.32 mL) subcut BEDTIME 09/14/23 mL) subcutaneous pen (Lantus 90 days #28.8 mL Solostar U-100 Insulin) insulin lispro 100 unit/mL 10 unit (0.1 mL) subcut TID 90 09/14/23 subcutaneous solution (Hum days #27 mL U-100 Insulin) flash glucose sensor (FreeStyle #1 ea 09/20/23 Elaine 2 Sensor kit) pioglitazone 30 mg tablet (Actos) 30 mg PO DAILY 90 days #90 tabs 09/20/23 Allergies Allergy/AdvReac Type Severity Reaction Status Date / Time metformin AdvReac Intermediate GI side Verified 12/14/23 09:16 effects Review of Systems Review of Systems: As per HPI Yes all other systems are reviewed and are negative Constitutional: Constitutional: Reports as per HPI [facility] Past Medical History Medical History (Updated 12/14/23 @ 15:47 by Tejal Ornelas NP) Small bowel obstruction Hx of intestinal obstruction Foot callus Erectile disorder due to medical condition in male patient Knee pain, right NIDDY (non-insulin dependent diabetes mellitus in young) Surgical History Hx of esophagogastroduodenoscopy History of appendectomy History of hernia surgery Family History Family History Mother Diabetes High blood pressure Social History Social History Household Members: Family Housing: House Do you presently have visiting nurse or other home services: No Alcohol intake: current Alcohol intake frequency: a few times a month Alcohol type: beer Patient Tobacco Use Status: Never used Tobacco Smoked in Last 30 Days: No e-Cigarette/Vaping Use: Never Used Second Hand Smoke Exposure: No Use of substances other than those prescribed or required for medical reasons: No Advance Directives: Yes Advance Directives Information Provided: Yes Advance Directives on File: No Do you have a plan to hurt others: No Plan service: No Current occupational status: employed Current occupation: right handed Cognitive needs: No Hearing needs: No Vision needs: No Physical Exam ED Vital Signs: Vital Signs - 24 hr 12/14/23 09:13 12/14/23 10:35 12/14/23 11:06 Temperature 97.0 F 97.9 F Pulse Rate 107 H 101 H 100 Respiratory Rate 20 20 18 Blood Pressure 155/110 H 149/106 H Pulse Oximetry 98 96 Oxygen Delivery Method Room Air Room Air 12/14/23 12:05 12/14/23 12:10 12/14/23 15:29 Temperature 98.1 F 98.0 F Pulse Rate 108 H 105 H Respiratory Rate 18 18 Blood Pressure 158/108 H 150/92 H Pulse Oximetry 96 88 L 93 Oxygen Delivery Method Room Air Room Air BMI result Body Mass Index 31.3 Vital signs have been reviewed and appear to be correct. Blood pressure elevated. Heart rate normal. Respiratory rate normal. Temperature normal. Oxygen saturation normal. Const General: cooperative, healthy appearing and no acute distress Orientation/consciousness: oriented to person, oriented to place, oriented to time and patient oriented x3 Limitations: no limitations HENMT Head: Yes normocephalic and Yes atraumatic Ears: external ears normal General nose exam: Normal external nose present Face and sinus: Yes face symmetric Mouth: oropharynx normal and moist mucous membranes Throat: Yes uvula midline Eyes Pupils: Equal, round and reactive pupils present Neck Neck: Yes normal visual inspection and Yes supple Resp Effort & Inspection: normal respiratory effort and able to speak in complete sentences Auscultation: wheezes expiratory wheezes and throughout and diminished lung sounds diffuse Cardio Rate: regular rate Rhythm: regular rhythm Heart sounds: S1 normal heart sound present and S2 normal heart sound present GI Palpation (GI): Soft to palpation and nontender Auscultation: normoactive bowel sounds General: Yes no CVA tenderness Back/Spine/Pelvis Back: no CVA tenderness Skin General skin exam: elasticity normal and turgor normal Neuro General: oriented to person, oriented to place, oriented to time, patient oriented x3, moves all extremities, no focal motor deficits and CN's II-XI intact bilaterally Cranial nerves: Yes Equal, round and reactive pupils present Cognition (Neuro): normal cognition Extrem General: Yes full ROM, Yes no pedal edema and Yes no calf tenderness Psych Mental Status: mental status grossly normal Affect: normal affect Thought process: Normal thought process present Medications Administered Discontinued Medications Generic Name Dose Route Start Last Admin Trade Name Freq PRN Reason Stop Dose Admin Albuterol/Ipratropium 3 ml 12/14/23 10:57 12/14/23 11:00 Albuterol/Iprat 2.5/0.5mg 3 Ml Ampul.Neb INHALE 12/14/23 10:58 3 ml ONCE ONE Administration Doxycycline Monohydrate 100 mg 12/14/23 15:17 12/14/23 15:29 Doxycycline Monohydrate 100 Mg Capsule PO 12/14/23 15:18 100 mg ONCE ONE Administration Ceftriaxone Sodium 1 gm/ 50 mls @ 100 mls/hr 12/14/23 15:17 12/14/23 15:29 Sodium Chloride IV 12/14/23 15:46 100 mls/hr ONCE ONE Administration Iohexol 65 ml 12/14/23 13:18 12/14/23 13:19 Iohexol 350 Mg/Ml 100 Ml Infus..Btl IV 12/14/23 13:19 65 ml ONCE ONE Administration Prednisone 50 mg 12/14/23 09:58 12/14/23 10:21 Prednisone 10 Mg Tablet PO 12/14/23 09:59 50 mg ONCE ONE Administration Medical Decision Making Medical Decision Making [facility] Narrative: Patient is a 43-year-old male with history of T2 DM, HTN, MDD, GERD presenting to the emergency department with complaint of cough and shortness of breath for the past 2 weeks. On exam patient is awake, A+Ox3, BP elevated, slightly tachycardic, VS otherwise WNL, afebrile, normal neurological exam without focal deficits, physical exam findings as above. Given reported symptoms and physical exam findings, initial differential includes viral illness, bronchitis, pneumonia, CHF. Labs notable for no leukocytosis, otherwise unremarkable. X-ray notable for small effusions. My interpretation is in agreement with the radiologist's interpretation. Given reported history and physical exam findings, feel this most likely represents bibasilar pneumonia. Will obtain ambulatory O2 sat. Patient noted to desat with ambulation to 88% and complained of chest pain, became tachycardic. Will add D-dimer. D-dimer elevated, will obtain CTA chest. CTA chest negative for PE but notable for bilateral moderate to large pleural effusions. Given that patient desaturates with ambulation, will discuss with Dr. Estrada. Patient accepted for admission to medicine for CHF. Differential Diagnosis Differential Diagnoses: The differential diagnosis associated with the presentation includes As per [facility]. Admission/Observation Consideration of admission/observation: Escalation of care including admission/observation considered Patient would have been admitted to the hospital had their work up had any findings where hospital admission was appropriate and their clinical presentation warranted hospital admission. Consult Healthcare Provider Management of the patient was discussed with: Hospitalist Lab Data [facility] Lab Attestation statement: I reviewed the patient's lab results. As per [facility] 12/14/23 09:29 12/14/23 09:29 Labs: Lab Results 12/14/23 12/14/23 Range/Units 09:29 12:20 WBC 6.2 (4.8-10.8) X10*3/uL RBC 4.85 (4.60-5.80) X10*6/uL Hgb 13.7 L (14.0-18.0) g/dl Hct 39.9 L (42.0-52.0) % MCV 82.3 (80.0-98.0) fL MCH 28.2 (27.0-33.0) pg MCHC 34.3 (31.0-36.0) g/dl RDW 13.9 (11.0-16.0) % Plt Count 140 L (160-400) X10*3/uL MPV 10.0 (9.4-12.4) fL Immature Gran % (Auto) 0.2 (0.0-0.4) % Neut % (Auto) 66.1 (45-73) % Lymph % (Auto) 23.9 (20-40) % [place] % (Auto) 6.7 (2-11) % Eos % (Auto) 2.4 (0-4) % Baso % (Auto) 0.7 (0-2) % Lymph # (Auto) 1.5 (1.2-4.9) X10*3/uL [place] # (Auto) 0.4 (0.1-1.2) X10*3/uL Eos # (Auto) 0.2 (0.0-0.4) X10*3/uL Baso # (Auto) 0.0 (0.0-0.2) X10*3/uL Abs Immat Gran (auto) 0.01 (0.00-0.03) X10*3/uL Absolute Neuts (auto) 4.1 (2.0-8.3) x10*3/uL Absolute Nucleated RBC 0.000 (0.0-0.012) X10*3/uL Nucleated RBC % (auto) 0.0 (0.0-0.2) /100WBC D-Dimer High Sensitivty 378 NG/ML Sodium 141 (135-145) mmol/L Potassium 3.8 (3.3-5.1) mmol/L Chloride 105 (96-108) mmol/L Carbon Dioxide 25 (22-29) mmol/L Anion Gap 15 (12-20) BUN 19 H (9-16) mg/dL Creatinine 0.83 (0.5-1.4) mg/dL Estim Creat Clear Calc 138.0 Estimated GFR > 60 Random Glucose 162 H (60-115) mg/dL Calcium 8.9 (8.4-10.2) mg/dL Total Bilirubin 0.8 (0.0-1.0) mg/dL Direct Bilirubin 0.3 (0.0-0.5) mg/dL AST 36 (5-37) U/L ALT 35 (0-40) U/L Alkaline Phosphatase 60 (39-117) U/L Troponin I High Sens 3.9 (<3.5-35.0) ng/L Total Protein 6.7 (6.5-8.0) g/dL Albumin 3.4 L (3.5-5.0) g/dL Lipase 15 (8-78) U/L COVID-19 (BILLY) Negative (Negative) COVID-19 Clin Com See Note Influenza Type A (CAMILO) Negative (Negative) Influenza Type B (CAMILO) Negative (Negative) Influenza A & B Note See Note Independent Interpretation I performed an independent interpretation of an: EKG (sinus tachycardia, rate 109, normal [place] interval and QTc) and Plain X-Ray Interpretation: small bibasilar effusions, likely pna Radiology Impression Discussion of test interpretation with radiology: I have reviewed the radiologist's reading. Radiologist Impression: XR/XR chest 2V IMPRESSION: Small effusions in the appearance of mild congestive change. This could be technical. Mild bibasilar pneumonia could give a similar appearance. External Record Review External record reviewed: Inpatient record, Office record and Outpatient record Discharge Plan Discharge Print Language: Telugu
[2023-12-14] MEDS: predniSONE 10 MG TABLET 50 MG PO (10:21)
[2023-12-14 10:37] LABS: Alanine Aminotransferase 35 U/L (0-40); Albumin Level 3.4 g/dL (3.5-5.0); Alkaline Phosphatase 60 U/L (39-117); Anion Gap 15 (12-20); Aspartate Amino Transferase 36 U/L (5-37); Bilirubin Direct 0.3 mg/dL (0.0-0.5); Bilirubin Total 0.8 mg/dL (0.0-1.0); Blood Urea Nitrogen 19 mg/dL (9-16); Calcium 8.9 mg/dL (8.4-10.2); Carbon Dioxide 25 mmol/L (22-29); Chloride 105 mmol/L (96-108); Estimated Glomerular Filt Rate > 60; Glucose Random 162 mg/dL (60-115); Lipase 15 U/L (8-78); Potassium 3.8 mmol/L (3.3-5.1); Sodium 141 mmol/L (135-145); Total Protein 6.7 g/dL (6.5-8.0)
[2023-12-14 10:53] LABS: Troponin-I High Sensitivity 3.9 ng/L (<3.5-35.0)
[2023-12-14] MEDS: Albuterol/Iprat 2.5/0.5MG 3 ML AMPUL.NEB INHALE (11:00)
--- NOTE | 2023-12-14 12:10 | PC.NURSE ---
ambulating pulse ox trial - pt dipped to 88 within a few paces, felt very dizzy and unsteady. HR 118.
[2023-12-14 12:32] LABS: D Dimer High Sensitivity 378 NG/ML
[2023-12-14] MEDS: iohexoL 350 MG/ML 100 ML INFUS..BTL 65 ML IV (13:19)
[2023-12-14] MEDS: cefTRIAXone sodium 1 GM in 0.9 % Sodium Chloride 50 ML IV (15:29)
[2023-12-14] MEDS: Doxycycline Monohydrate 100 MG CAPSULE PO (15:29)
--- NOTE | 2023-12-14 15:45 | P.HPHOSP_ITS ---
History of Present Illness Date of Service: 12/14/23 Chief Complaint: sob 43M PMH DM, mood disorder, GERD, htn, presented with sob, Patient states he has had 2-4 weeks of increasing shortness of breath. Worse on exertion, positive orthopnea, associated with 10 lb weight gain and lower extremity edema. Also having cough, mildly productive with light yellow sputum. Also reports midsternal chest burning while lying down at night. Patient denies any fevers or chills. In ED CTA was negative for PE but did show bilateral pleural effusions. ekg unremarkable, trop negative. patient desaturated to 88% on room air on ambulation. Review of Systems 2 Review of Systems: Yes all other systems are reviewed and are negative [facility] Medical History Small bowel obstruction Hx of intestinal obstruction Foot callus Erectile disorder due to medical condition in male patient Knee pain, right NIDDY (non-insulin dependent diabetes mellitus in young) Family History Mother Diabetes High blood pressure Surgical History Hx of esophagogastroduodenoscopy History of appendectomy History of hernia surgery Social History Household Members: Family Housing: House Do you presently have visiting nurse or other home services: No Alcohol intake: current Alcohol intake frequency: a few times a month Alcohol type: beer Patient Tobacco Use Status: Never used Tobacco Smoked in Last 30 Days: No e-Cigarette/Vaping Use: Never Used Second Hand Smoke Exposure: No Use of substances other than those prescribed or required for medical reasons: No Advance Directives: Yes Advance Directives Information Provided: Yes Advance Directives on File: No Do you have a plan to hurt others: No Plan service: No Current occupational status: employed Current occupation: right handed Cognitive needs: No Hearing needs: No Vision needs: No Meds Allergies Allergy/AdvReac Type Severity Reaction Status Date / Time metformin AdvReac Intermediate GI side Verified 12/14/23 09:16 effects Active Medications: Current Medications Ceftriaxone Sodium 1 gm/ (Sodium Chloride) 50 mls @ 100 mls/hr IV ONCE ONE Stop: 12/14/23 15:46 Last Admin: 12/14/23 15:29 Dose: 100 mls/hr Home Medications ?Medication ?Instructions ?Recorded ?Confirmed ?Last Taken ?Type pantoprazole 20 mg tablet,delayed 40 mg PO DAILY@0630 09/12/23 09/20/23 Unknown History release pen needle, diabetic 32 gauge x #1,200 ea 09/20/23 09/20/23 Unknown History (BD Lula 2nd Gen Pen Needle) Physical Exam 2 Vital Signs and Narrative: Vital Signs: Last Vital Signs Temp 98.0 F 12/14/23 15:29 Pulse 105 H 12/14/23 15:29 Resp 18 12/14/23 15:29 BP 150/92 H 12/14/23 15:29 Pulse Ox 93 12/14/23 15:29 O2 Del Method Room Air 12/14/23 15:29 BMI result Body Mass Index 31.3 General: AO X 3, no acute distress Resp: Crackles bilateral bases, no accessory muscles used CVS: S1,S2,RRR GI: soft, non tender, non distended Neuro: motor grossly intact, alert Psych: appropriate affect, appropriate insight Results Labs 12/14/23 09:29 12/14/23 09:29 Labs: Laboratory Results - last 24 hr 12/14/23 12/14/23 09:29 12:20 MCV 82.3 MCH 28.2 MCHC 34.3 RDW 13.9 Plt Count 140 L MPV 10.0 Immature Gran % (Auto) 0.2 Neut % (Auto) 66.1 Lymph % (Auto) 23.9 [place] % (Auto) 6.7 Eos % (Auto) 2.4 Baso % (Auto) 0.7 Lymph # (Auto) 1.5 [place] # (Auto) 0.4 Eos # (Auto) 0.2 Baso # (Auto) 0.0 Abs Immat Gran (auto) 0.01 Absolute Neuts (auto) 4.1 Absolute Nucleated RBC 0.000 Nucleated RBC % (auto) 0.0 D-Dimer High Sensitivty 378 Anion Gap 15 Estim Creat Clear Calc 138.0 Estimated GFR > 60 Random Glucose 162 H Calcium 8.9 Total Bilirubin 0.8 Direct Bilirubin 0.3 AST 36 ALT 35 Alkaline Phosphatase 60 Troponin I High Sens 3.9 Total Protein 6.7 Albumin 3.4 L Lipase 15 COVID-19 (BILLY) Negative COVID-19 Clin Com See Note Influenza Type A (CAMILO) Negative Influenza Type B (CAMILO) Negative Influenza A & B Note See Note Imaging Radiologist's Impressions: Impressions Chest X-Ray 12/14/23 09:44 IMPRESSION: Small effusions in the appearance of mild congestive change. This could be technical. Mild bibasilar pneumonia could give a similar appearance. Chest CTA 12/14/23 13:26 IMPRESSION: 1. No evidence of pulmonary embolism. 2. Moderate to large bilateral pleural effusions. Bibasilar compressive atelectasis. VTE: negative. Assessment and Plan (1) CHF (congestive heart failure): Status: Acute Plan 43M PMH DM, mood disorder, GERD, htn, presented with sob Acute hypoxic respiratory failure secondary to Suspected new onset CHF unspecified IV Lasix Check echo Monitor I's and O's BMP Diabetes type 2 Basal bolus insulin, monitor fingersticks Chest pain Troponin negative, EKG unremarkable Likely due to reflux Continue PPI Hypertension Does not appear to be currently on meds will start with IV diuresis DVT prophylaxis Lovenox Full Code Patient with CHF causing hypoxia requiring IV diuresis and further investigation, likely require at least 2 midnights inpatient Quality Stroke Does the patient have a stroke diagnosis?: No VTE Prior VTE?: No VTE Risk Level:: Medical - moderate - high VTE Device Contraindication: Treatment Not Indicated VTE Drug Contraindication: N/A - Med Ordered
--- NOTE | 2023-12-14 15:57 | PHA.MEDREC ---
Pharmacy Consult ? Medication Reconciliation Pharmacy has completed the medication reconciliation. Patient reported medications. Dimple Mcgregor, NahedD
--- NOTE | 2023-12-14 16:08 | CA_ITS ---
Transthoracic Echocardiogram Patient (Last, First, Middle): Mark Humphrey, Gender: Male Date of : 1980 Age: 43 Procedure Date: 12/14/2023 Procedure Type: Transthoracic Echocardiogram Location: [facility] [place] Height: 177.8 cm Weight: 98.88 kg BSA: 2.17 m2 Heart Rate: bpm BP: 150 / 92 mmHg Bioinformatics Scientist: Referring MD: Slava Lynn MD Symptoms: sob Study Quality: Adequate w Contrast ECG Rhythm: Sinus Conclusions: - The left ventricular systolic function is moderately decreased. The visually estimated ejection fraction is between 35-40%. - No obvious valvular pathology seen on this study. Findings Procedure Information Contrast agent, definity, is being given per protocol without apparent complications. Left Ventricle Mildly increased left ventricular cavity size. The left ventricular systolic function is moderately decreased. The visually estimated ejection fraction is between 35-40%. There is moderate global hypokinesis. Evidence suggests grade II (moderate) diastolic dysfunction. Right Ventricle Normal right ventricular cavity size and systolic function. Atria The left atrium is moderately dilated. The right atrium is normal in size. Aortic Valve There is a normal trileaflet aortic valve. There is no aortic valve stenosis. There is trace (trivial) aortic valve regurgitation. Mitral Valve The mitral valve appears normal. There is trace mitral valve regurgitation. There is no mitral valve stenosis. Pulmonic Valve The pulmonic valve is likely normal. Tricuspid Valve Normal tricuspid valve structure. There is trace tricuspid valve regurgitation. There is no evidence of pulmonary hypertension. Great Vessels The asc aorta is normal in size. Venous The inferior vena cava is mildly dilated and collapses less than 50% with inspiration. Pericardium/Pleural There is a trivial pericardial effusion. Prior Study Comparison No prior study available for comparison. Recommendations, Care & Conclusions No obvious valvular pathology seen on this study. Measurements 2D Linear Measurements RVIDd: 3.91 RVIDd Index: 1.80 IVSd: 0.96 0.6-0.9/0.6-1.0 cm LVIDd: 5.86 3.9-5.3/4.2-5.9 cm LVIDd Index: 2.70 2.4-3.2/2.2-3.1 cm/m2 LVIDs: 5.25 2.0-3.6 cm LVPWd: 1.00 0.7-1.1 cm Ao Root: 3.00 2.1-3.5 cm LA Diam: 4.70 2.7-3.8/3.0-4.0 cm LAIDs Index: 2.17 1.5-2.3 cm/m2 LV Mass: 288.82 67-162/88-224 g LV Mass Index: 133.10 43-95/49-115 g/m2 LVOT Diam: 2.40 3.0+(-)1.3 cm 2D Systolic Function EF 4C: 39.00 >55% EF 2C: 41.60 >55% EF BiP: 39.80 >55% Mitral Valve MV VTI: 0.23 MV Pk Ramón: 1.12 MV Mn Ramón: 0.56 MV Pk Grad: 5.00 MV Mn Grad: 2.00 MV Pk E: 0.93 MV Decel Time: 114.00 E'Lateral: 6.53 E'Medial: 2.83 E/E' Med: 33.00 E/E' Lat: 14.30 PHT: 33.00 MVA PHT: 6.67 MVA Continuity: 3.14 Decel Aiken: 8.19 Aortic Valve AoV Pk Ramón: 1.02 AoV Mn Ramón: 0.66 AoV VTI: 0.20 AoV Pk Grad: 4.00 Aov Mn Grad: 2.00 CELSO Cont.VTI: 3.66 LVOT LVOT Pk Ramón: 0.70 LVOT Mn Ramón: 0.50 LVOT VTI: 0.16 LVOT Pk Grad: 2.00 LVOT Mn Grad: 1.00 LVOT Diam: 2.40 LVOT Area: 4.52 Diastolic Function MV Pk E: 0.93 E'Medial: 2.83 E/E' Med: 33.00 E' Laterial: 6.53 E/E' Lat: 14.30 Right Ventricle TAPSE (mm): 25.00 TVS' Ramón: 11.00 Tricuspid Valve TR Pk Ramón: 1.92 TR Pk Grad: 15.00 RA Press: 15.00 RVSP: 30.00 Great Vessels Aorta Ao Root-2D: 3.00 2.0-3.7 cm Ao Asc: 3.00 2.1-3.4 cm Pulmonary Valve PV Pk Ramón: 0.73 Peak PV Grad: 2.00 Updated in Other Vendor System with Status of Final Oleg Ritter MD electronically signed on 12/15/2023 11:22:42 AM with status of Final
[2023-12-14 18:34] LABS: B Type Natriuretic Peptide 157 pg/mL (<100)
[2023-12-14 18:35] LABS: Troponin-I High Sensitivity 3.5 ng/L (<3.5-35.0)
--- NOTE | 2023-12-14 19:13 | PC.NURSE ---
This RN assumed pt care @ 1900
--- NOTE | 2023-12-14 19:24 | PC.NURSE ---
Pt is ca&ox4, no signs of distress. Pt resting in bed comfortably. Pt requesting work note for wednesday. Pt medicated per oct. Plan of care ongoing.
[2023-12-14 19:34] LABS: Glucose, Whole Blood 234 mg/dL (60-115)
[2023-12-14] MEDS: Furosemide 40 MG/4 ML VIAL IVPUSH (19:34)
[2023-12-14] MEDS: Insulin Lispro 100 UNIT/ML 3 ML VIAL SUBCUT ×2 (19:35→22:32)
--- NOTE | 2023-12-14 20:12 | PC.NURSE ---
Pt ca&ox4, no signs of distress. Pt denies pain. Pt resting comfortably in bed. Plan of care ongoing.
[2023-12-14] MEDS: Insulin Glargine,Hum.rec.anlog 100 UNIT/ML 10 ML VIAL 32 UNIT SUBCUT (22:00)
--- NOTE | 2023-12-14 22:04 | MHC.EDTECH ---
pt belongings list completed for admission and placed into patients chart
[2023-12-14 22:18] LABS: Glucose, Whole Blood 302 mg/dL (60-115)
--- NOTE | 2023-12-14 22:24 | PC.NURSE ---
Unable to give insulin Lispro under original order d/t previous RN charting under the incorrect time. So unable to pull med from the [facility]. Dimple from pharm entered a new order. Insulin to be given under that order. Plan of care ongoing.
--- NOTE | 2023-12-14 22:34 | PC.NURSE ---
Pt medicated per oct. Pt resting comfortably in bed. Plan of care ongoing.
[2023-12-15] MEDS: Acetaminophen 325 MG TABLET 650 MG PO (00:37)
[2023-12-15] MEDS: 0.9 % Sodium Chloride Flush 3 ML SYRINGE IVFLUSH ×2 (00:40→08:52)
[2023-12-15] MEDS: guaiFENesin 200 MG/10 ML 10 ML LIQUID PO (01:22)
[2023-12-15 02:51] VITALS: BP 141/84; PULSE 107; RESP 20; TEMP 36.1; O2SAT 92
[2023-12-15 07:41] LABS: Hematocrit 38.8 % (42.0-52.0); Hemoglobin 13.4 g/dl (14.0-18.0); Mean Corpuscular HGB Conc 34.5 g/dl (31.0-36.0); Mean Corpuscular Hemoglobin 27.7 pg (27.0-33.0); Mean Corpuscular Volume 80.3 fL (80.0-98.0); Mean Platelet Volume 10.8 fL (9.4-12.4); Platelet Count 152 X10*3/uL (160-400); Red Blood Count 4.83 X10*6/uL (4.60-5.80); Red Cell Distribution Width 13.6 % (11.0-16.0); White Blood Count 9.6 X10*3/uL (4.8-10.8)
[2023-12-15 07:48] LABS: Glucose, Whole Blood 239 mg/dL (60-115)
[2023-12-15 07:56] LABS: Anion Gap 13 (12-20); Blood Urea Nitrogen 20 mg/dL (9-16); Calcium 8.8 mg/dL (8.4-10.2); Carbon Dioxide 27 mmol/L (22-29); Chloride 102 mmol/L (96-108); Creatinine Clr Calc Pharmacy 144.4; Estimated Glomerular Filt Rate > 60; Glucose Fasting 230 mg/dL (60-99); Magnesium 1.7 mg/dL (1.6-2.6); Potassium 3.4 mmol/L (3.3-5.1); Sodium 139 mmol/L (135-145)
[2023-12-15 08:00] VITALS: BP 139/88; PULSE 102; RESP 20; TEMP 36.2; O2SAT 95
[2023-12-15] MEDS: Omeprazole 40 MG CAPSULE.DR PO (08:48)
[2023-12-15] MEDS: Furosemide 40 MG/4 ML VIAL IVPUSH (08:49)
[2023-12-15] MEDS: Insulin Lispro 100 UNIT/ML 3 ML VIAL SUBCUT ×2 (08:49→11:58)
[2023-12-15] MEDS: Multivitamin TABLET 1 TAB PO (08:49)
[2023-12-15] MEDS: Enoxaparin Sodium 40 MG/0.4 ML SYRINGE SUBCUT (08:49)
--- NOTE | 2023-12-15 08:50 | MHC.CM.PN ---
Pt self-care, lives at home with his and children. Pts mother, father, or brother will transport him home. New HCP completed with pt, now on file. PCP: Tomy LYMAN
[2023-12-15 12:00] VITALS: BP 129/85; PULSE 104; RESP 20; TEMP 36; O2SAT 97
--- NOTE | 2023-12-15 12:57 | PM.DS ---
DS: Providers Provider Date of Service: 12/15/23 Date of admission: 12/14/23 15:43 Primary care physician: Tomy Cannon PA-C Consults: 12/15/23 09:42 Consult to Cardiology Routine Consulting Provider: [facility] [place] [facility] Reason for consultation: new CHF, orthopnea for establishment of care and medication advice DS: Diagnosis Discharge Diagnosis (1) New onset of congestive heart failure: Status: Acute (2) Systolic heart failure: Status: Acute DS: Summary Hospital Course Hospital Course: Admission note 43M PMH DM, mood disorder, GERD, htn, presented with sob, Patient states he has had 2-4 weeks of increasing shortness of breath. Worse on exertion, positive orthopnea, associated with 10 lb weight gain and lower extremity edema. Also having cough, mildly productive with light yellow sputum. Also reports midsternal chest burning while lying down at night. Patient denies any fevers or chills. In ED CTA was negative for PE but did show bilateral pleural effusions. ekg unremarkable, trop negative. patient desaturated to 88% on room air on ambulation. Hospital course The patient was admitted to the hospital for treatment of acute hypoxic respiratory failure secondary to new onset systolic CHF as showed in Echo w Decrease EF to 35-40%. He was treated with IV Lasix with good response as he was weaned off O2 with significant improvement of lower extremities swelling and breathing. discussed with dr Ritter who suggested outpatient follow up. meanwhile he will be discharged on PO Lasix, Entresto and Carvedilol pending follow up with dr Ritter. to repeat BMP next week and follow with PCP. The patient made quicker than expected improvement and will not need a 2nd inpatient night stay as he will follow with cardiology as outpatient. Discharge Plan Start Lasix 40 mg daily Start Carvedilol and Entresto as prescribed Decrease Salt intake and watch daily fluid intake To repeat blood test next week To Follow with PCP and Assistant Administrator (Dr Ritter) as outpatient for further work up Time Attestation Discharge Coordination Time (in mins): 37 Quality: Safe Use of Opioids Does Pt have an Active Cancer Diagnosis on the Problem List?: No Quality: Stroke Does the patient have a stroke diagnosis?: No Physical Exam Vital Signs: Vital Signs: Last Vital Signs Temp 96.8 F 12/15/23 12:00 Pulse 104 H 12/15/23 12:00 Resp 20 12/15/23 12:00 BP 129/85 12/15/23 12:00 Pulse Ox 97 12/15/23 12:00 O2 Del Method Room Air 12/15/23 12:00 BMI result Body Mass Index 30.2 Const: Other: Constitutional : Awake, interactive, not in distress Neck : Normal inspection, Supple Cardiovascular : RRR, no JVP, trace lower extremity edema Respiratory : good bilateral air entry, no crackles, wheezes or rhonchi Gastrointestinal: soft, lax, Normal bowel sounds, Non tender Skin : Warm, Dry Neurological : Alert & oriented x3, No focal deficit DS: Data Data Completed and Pending Labs on day of discharge: Laboratory Results - last 24 hr 12/14/23 12/14/23 12/14/23 18:05 19:29 22:14 WBC RBC Hgb Hct MCV MCH MCHC RDW Plt Count MPV Absolute Nucleated RBC Nucleated RBC % (auto) Sodium Potassium Chloride Carbon Dioxide Anion Gap BUN Creatinine Estim Creat Clear Calc Estimated GFR POC Glucose 234 H 302 H Fasting Glucose Calcium Magnesium Troponin I High Sens 3.5 B-Natriuretic Peptide 157 H 12/15/23 12/15/23 12/15/23 06:13 07:27 11:52 WBC 9.6 RBC 4.83 Hgb 13.4 L Hct 38.8 L MCV 80.3 MCH 27.7 MCHC 34.5 RDW 13.6 Plt Count 152 L MPV 10.8 Absolute Nucleated RBC 0.000 Nucleated RBC % (auto) 0.0 Sodium 139 Potassium 3.4 Chloride 102 Carbon Dioxide 27 Anion Gap 13 BUN 20 H Creatinine 0.78 Estim Creat Clear Calc 144.4 Estimated GFR > 60 POC Glucose 239 H 189 H Fasting Glucose 230 H Calcium 8.8 Magnesium 1.7 Troponin I High Sens B-Natriuretic Peptide Imaging Chest x-ray: Radiologist's impression: ITS Impressions Chest X-Ray 12/14/23 09:44 IMPRESSION: Small effusions in the appearance of mild congestive change. This could be technical. Mild bibasilar pneumonia could give a similar appearance. Chest CTA 12/14/23 13:26 IMPRESSION: 1. No evidence of pulmonary embolism. 2. Moderate to large bilateral pleural effusions. Bibasilar compressive atelectasis. VTE: negative. Discharge Plan Discharge Anticipated Discharge Date/Time: 12/15/23 12:28 Patient Disposition: Home, Self-Care Discharge Diagnosis: New onset heart failure Referrals: Tomy Cannon PA-C [Primary Care Provider] - 1 Week Oleg Ritter MD [Physician] - 1 Week (New onset systolic heart failure in diabetic patient with Orthopnea ) Discharge Medications: New Entresto 24-26 mg tablet 1 tab PO BID Qty: 60 2RF carvedilol 3.125 mg tablet 3.125 mg PO BID Qty: 60 2RF Rx Instructions: must administer with a meal/food furosemide 40 mg tablet 40 mg PO QAM Qty: 30 0RF Continued pantoprazole 20 mg tablet,delayed release (DR/EC) 40 mg PO DAILY@0630 insulin glargine [Lantus Solostar U-100 Insulin] 100 unit/mL (3 mL) insulin pen 32 unit subcut BEDTIME 90 Days Qty: 28.8 0RF insulin lispro [Humalog U-100 Insulin] 100 unit/mL solution 10 unit subcut TIDAC multivitamin Tablet 1 tab PO DAILY (DME) pen needle, diabetic [BD Lula 2nd Gen Pen Needle] 32 gauge x 5/32 needle See Rx Instructions .ROUTE DAILY Qty: 1200 Rx Instructions: As directed pioglitazone [Actos] 30 mg tablet 30 mg PO DAILY 90 Days Qty: 90 3RF (DME) FreeStyle Elaine 2 Sensor Kit See Rx Instructions .Route Qty: 1 6RF Rx Instructions: As directed Discharge Orders: Discharge Order (Routine); Ordered 12/15/23 Ordered By: Kemal Hu Diet: Low salt diet Activity on Discharge: As tolerated Stand Alone Forms: Patient Portal Discharge page Print Language: Lithuanian Other Ambulatory Orders: Basic Metabolic Panel (Routine) Timeframe: 1 Week Facility: [facility] - Location: Laboratory Ordered By: Kemal Hu Care Plan Goals: Read below Health Concerns: Read below Plan of Treatment: Read below Assessment: You were admitted for evaluation of difficulties breathing and swelling in lower extremities. Improved with IV lasix. Echo was done showing mild reduction in your heart function (Ejection fraction). To be followed by Cardiology as outpatient. Start Lasix 40 mg daily Start Carvedilol and Entresto as prescribed Decrease Salt intake and watch daily fluid intake To repeat blood test next week To Follow with PCP and Assistant Administrator (Dr Ritter) as outpatient for further work up Patient Instructions: Community Acquired Pneumonia (DC)
--- NOTE | 2023-12-15 13:07 | MHC.CM.PN ---
Pt is medically cleared for discharge home self-care, pt has arranged for his own transport home.
== END 2023-12-15 13:40 | disposition home or self-care (01) | DRG 194 ==
LOC: HO.ED 15:47 → HO.EDOVER 15:54 → HO.IMC 19:42
PROVIDERS: Registered Nurse Emergency; Admitting Provider Internal Medicine; Emergency Provider Emergency Medicine; PCP Physician Assistant; Visit Provider Student in an Organized Health Care Education/Training Program
DX: I11.0 Hypertensive heart disease with heart failure (principal); J96.01 Acute respiratory failure with hypoxia; I50.21 Acute systolic (congestive) heart failure; K21.9 Gastro-esophageal reflux disease without esophagitis; F32.9 Major depressive disorder, single episode, unspecified; Z20.822 Contact with and (suspected) exposure to COVID-19; Z79.4 Long term (current) use of insulin; Z79.899 Other long term (current) drug therapy
CPT/HCPCS: 36415; 71046; 71275; 80048; 80076; 82947; 83690; 83735; 83880; 84484; 85025; 85027; 85379; 87502; 87635; 93005; 93306; 94640; 99285; J0696; J1650; J1940; Q9957; Q9967

== ENCOUNTER → 2023-12-14 09:18 | Outpatient (BNV) | payer OTHER, SELFPAY | PROVIDERS: Admitting Provider Internal Medicine; Emergency Provider Emergency Medicine; PCP Physician Assistant; Visit Provider Internal Medicine | DX: R06.02 Shortness of breath (principal) | CPT/HCPCS: 93010; 93306 ==

== ENCOUNTER → 2023-12-14 15:43 | Outpatient (BNV) | payer OTHER, SELFPAY | PROVIDERS: Admitting Provider Internal Medicine; Emergency Provider Emergency Medicine; PCP Physician Assistant; Visit Provider Internal Medicine | DX: I50.9 Heart failure, unspecified (principal); I50.20 Unspecified systolic (congestive) heart failure | CPT/HCPCS: 99223; 99239 ==

== ENCOUNTER 2023-12-20 10:37 | Outpatient (AMB) | payer OTHER, SELFPAY ==
[2023-12-20 10:39] VITALS: BP 120/68; PULSE 99; O2SAT 99; BMI 30.1
--- NOTE | 2023-12-20 10:39 | A.OFFVIS_ITS ---
Vital Signs 12/20/23 10:39 Height 5 ft 10 in Weight 210 lb BMI 30.1 BP 120/68 Blood Pressure Location Lt brachial Position Sitting Pulse 99 Pulse Source Pulse Oximeter Pulse Oximetry (%) 99 Oxygen Delivery Method Room Air Intake Visit Reasons: Consult Allergies metformin Adverse Reaction (Intermediate, Verified 12/14/23 09:16) GI side effects Medication List - Last Reconciled 12/20/23 by Oleg Ritter MD carvedilol 3.125 mg PO BID 90 days dapagliflozin propanediol (Farxiga) 10 mg PO DAILY 90 days flash glucose sensor (FreeStyle Elaine 2 Sensor kit) As directed furosemide 40 mg PO QAM insulin glargine (Lantus Solostar U-100 Insulin) 32 units (0.32 mL) subcut BEDTIME 90 days insulin lispro (Humalog U-100 Insulin) 10 units subcut TIDAC multivitamin 1 tab PO DAILY pantoprazole 40 mg PO DAILY@0630 pen needle, diabetic (BD Lula 2nd Gen Pen Needle) As directed pioglitazone (Actos) 30 mg PO DAILY 90 days sacubitril-valsartan 24-26 mg (Entresto) 1 tab PO BID 90 days spironolactone 25 mg PO DAILY 90 days HPI Comments Details: Mark is here for consultation regarding congestive heart failure. History of diabetes for many years. No known coronary disease in the past. Recently admitted for heart failure symptoms and he got diuresed. Then got discharged. He states he is better. Shortness of breath does not seem completely resolved. He still has some leg swelling. No history of any smoking. No drugs either. He does drink every couple of days or so. [facility] Medical History Small bowel obstruction Hx of intestinal obstruction Foot callus Erectile disorder due to medical condition in male patient Knee pain, right NIDDY (non-insulin dependent diabetes mellitus in young) Surgical History Hx of esophagogastroduodenoscopy History of appendectomy History of hernia surgery Family History (Updated 12/20/23 @ 10:44 by Virginia Edmonds) Mother Diabetes High blood pressure Social History Household Members: Spouse and Children Housing: House Do you presently have visiting nurse or other home services: No Alcohol intake: current Alcohol intake frequency: a few times a month Alcohol type: beer Patient Tobacco Use Status: Never used Tobacco e-Cigarette/Vaping Use: Never Used Second Hand Smoke Exposure: No Advance Directives Date on File: 12/14/23 service: No Current occupational status: employed Current occupation: right handed Cognitive needs: No Hearing needs: No Vision needs: No Review of Systems Const Denies weakness ENT Denies dizziness Card Denies chest pain, Denies chest pain with activity, Denies syncope, Denies rapid heart rate, Denies pedal edema, Denies edema, Denies leg edema, Denies lightheadedness, Denies palpitations, Denies dyspnea, Denies dyspnea on exertion and Denies orthopnea Resp Denies cough, Denies dyspnea and Denies dyspnea on exertion GI Denies hematochezia and Denies change in stool character Musc Denies abnormal gait, Denies muscle cramps, Denies muscle weakness, Denies numbness, Denies radiating pain into limb and Denies tingling Neuro Denies abnormal gait, Denies dizziness, Denies syncope, Denies numbness, Denies tingling and Denies weakness Endo Denies palpitations Physical Exam Vital Signs: Last Vital Signs Pulse 99 12/20/23 10:39 BP 120/68 12/20/23 10:39 Pulse Ox 99 12/20/23 10:39 Oxygen Delivery Method Room Air 12/20/23 10:39 BMI result Body Mass Index 30.1 Const General: comfortable and no acute distress Orientation/consciousness: patient oriented x3 HEENT Other: Unremarkable Head: Yes normal to inspection Neck Neck: Yes normal visual inspection Chest Chest palpation & inspection: normal inspection of the chest Resp Other: Basal crackles Cardio Palpation: normal PMI Heart sounds: S1 normal heart sound present, S2 normal heart sound present, no gallops, no murmurs and no rubs GI Palpation (GI): Soft to palpation Back/Spine/Pelvis Other: unremarkable Skin General skin exam: no rashes or lesions noted Neuro General: patient oriented x3 Extrem Other: 1+ edema General: Yes normal to inspection Psych Mental Status: mental status grossly normal Office Procedures EKG Details: EKG with sinus tachycardia at 109/Min; no significant ST-T changes and otherwise [place]remarkable[place] [id number], Complete Assessment & Plan Assessment & Plan (1) Acute combined systolic and diastolic CHF, NYHA class 3: Code(s): I50.41 - Acute combined systolic (congestive) and diastolic (congestive) heart failure Category: Medical Plan In the recent echocardiogram, LVEF is 35-40%. Moderate diastolic dysfunction. Left atrium moderately dilated. LV cavity size is also slightly increased. All these could indicate some chronicity. As he has longstanding diabetes and not well controlled, that could play a role and cause coronary disease. Alcohol use can also cause some component of alcohol mediated cardiomyopathy. At the current time, he still slightly volume overloaded. Continue diuretics. Add Farxiga. Add spironolactone. Advised to start Entresto. Check labs in a few days' time. We will see him in a few weeks' time. Then meds will need to be further optimized for congestive heart failure. Eventually, when he is more stable will need ischemic workup either with a stress test or cardiac catheterization. Coronary CTA is also an option. Advised to cut back and hopefully stop alcohol use. He understands the issues. Orders: Orders Basic Metabolic Panel 1 Week I50.9 - Heart failure, unspecified Medications: New spironolactone 25 mg PO DAILY 90 days 90 tabs 3RF dapagliflozin propanediol (Farxiga) 10 mg PO DAILY 90 days 90 tabs 3RF Changed From sacubitril-valsartan 24-26 mg (Entresto) 1 tab PO BID 60 tabs 2RF To sacubitril-valsartan 24-26 mg (Entresto) 1 tab PO BID 90 days 180 tabs 3RF From carvedilol must administer with a meal/food 3.125 mg PO BID 60 tabs 2RF To carvedilol must administer with a meal/food 3.125 mg PO BID 90 days 180 tabs 3RF Refilled furosemide 40 mg PO QAM 90 tabs 3RF Coding Level of Care Code New Pt Level 4 (36421) Diagnoses Acute combined systolic and diastolic CHF, NYHA class 3 I50.41 CPT Codes EKG - CPT: 82625-[id number], Complete ([id number])
== END 2023-12-20 10:59 | disposition home or self-care (01) ==
PROVIDERS: PCP Physician Assistant; Visit Provider Internal Medicine
DX: I50.41 Acute combined systolic (congestive) and diastolic (congestive) heart failure (principal)
CPT/HCPCS: 93010; 99214

== ENCOUNTER → 2023-12-20 10:37 | Outpatient (BNVA) | payer OTHER, SELFPAY | PROVIDERS: PCP Physician Assistant; Visit Provider Internal Medicine | DX: I50.41 Acute combined systolic (congestive) and diastolic (congestive) heart failure (principal); Z79.899 Other long term (current) drug therapy | CPT/HCPCS: 93005 ==

== ENCOUNTER 2024-01-04 08:36 | Outpatient (AMB) | payer OTHER, SELFPAY ==
--- NOTE | 2024-01-04 09:13 | MHC.PC.OV ---
Vital Signs 01/04/24 09:15 Height 5 ft 10 in Weight 197 lb 6 oz BMI 28.3 BP 110/84 Blood Pressure Location Lt brachial Position Sitting Pulse 99 Pulse Source Pulse Oximeter Pulse Oximetry (%) 98 Oxygen Delivery Method Room Air Intake Visit Reasons: PE Intake Note: Patient is here today for a physical. Dive Supervisor Required: No Accompanied by: Self / Same As Patient Allergies metformin Adverse Reaction (Intermediate, Verified 01/04/24 09:27) GI side effects Medication List - Last Reconciled 01/04/24 by Tomy Cannon PA-C carvedilol 3.125 mg PO BID 90 days dapagliflozin propanediol (Farxiga) 10 mg PO DAILY 90 days flash glucose sensor (FreeStyle Elaine 2 Sensor kit) As directed furosemide 40 mg PO QAM insulin glargine (Lantus Solostar U-100 Insulin) 32 units (0.32 mL) subcut BEDTIME 90 days insulin lispro (Humalog U-100 Insulin) 10 units subcut TIDAC multivitamin 1 tab PO DAILY pantoprazole 40 mg PO DAILY@0630 pen needle, diabetic (BD Lula 2nd Gen Pen Needle) As directed pioglitazone (Actos) 30 mg PO DAILY 90 days sacubitril-valsartan 24-26 mg (Entresto) 1 tab PO BID 90 days spironolactone 25 mg PO DAILY 90 days Tobacco use date assessed: 09/20/23 Dental Screening Dental Screen Date: 09/20/23 HPI PE HPI Details Patient is a 43-year-old male here today for a routine annual physical.? Patient has a past medical history significant for type 2 diabetes (complicated by diabetic foot ulcer), GERD. ? Congestive heart failure--> Patient recently hospitalized at [facility] for acute hypoxic respiratory failure secondary to onset Congestive heart failure. Echocardiogram while in the hospital showing decreased EF. Patient was treated with IV Lasix with good response and when weaned off of oxygen. Patient was started on Lasix, Entresto and carvedilol. Has followed up with Cardiology L patient was started on Farxiga and spironolactone due to being overloaded. Was also started on Farxiga and Entresto. He reports Farxiga was much too expensive for him Type 2 diabetes complicated by diabetic foot ulcer --> today's A1c much improved at 8.1 from 11. Has been more compliant with his diabetic medication and has drastically changed his diet. He has stopped drinking alcohol over last month and feeling better.. .. Major depressive disorder:? He reports he is still suffering with some depression due to family issues, reports he is going through a divorce. Was on sertraline and fluoxetine in the past though seems not to have been effective. He declines offers to be seen by mental therapy at this time. Vaccines: Up-to-date with COVID vaccine, tetanus vaccine and pneumonia vaccine [facility] Medical History CHF (congestive heart failure) Small bowel obstruction Hx of intestinal obstruction Foot callus Erectile disorder due to medical condition in male patient Knee pain, right NIDDY (non-insulin dependent diabetes mellitus in young) Surgical History Hx of esophagogastroduodenoscopy History of appendectomy History of hernia surgery Family History Mother Diabetes High blood pressure Social History (Updated 01/04/24 @ 09:39 by Tomy Cannon PA-C) Household Members: Spouse and Children Housing: House Do you presently have visiting nurse or other home services: No Alcohol intake: current Alcohol intake frequency: former alcohol drinker Patient Tobacco Use Status: Never used Tobacco e-Cigarette/Vaping Use: Never Used Second Hand Smoke Exposure: No Advance Directives Date on File: 12/14/23 service: No Current occupational status: employed Current occupation: right handed Cognitive needs: No Hearing needs: No Vision needs: No Questionnaire Thrive Questionnaire Date Thrive assessed: 12/15/23 JOLIE-7 AMB Questionnaire JOLIE-7 Date JOLIE - 7 assessed: 09/20/23 Source: Developed by Drs. Josh Nava, Shelby Peres, Manuel Lloyd and colleagues, with an educational zaid from [employer]. Review of Systems Const Denies body aches, Denies chills, Denies excessive sweating, Denies fatigue, Denies fever(s) and Denies headache(s) Eyes Denies blurry vision ENT Denies dysphagia, Denies vertigo, Denies dizziness, Denies headache(s), Denies hearing loss and Denies tinnitus Card Denies chest pain, Denies chest pain with activity, Denies syncope, Denies irregular heart rhythm and Denies dyspnea Resp Denies chest congestion, Denies cough, Denies hemoptysis, Denies dyspnea and Denies wheezing GI Denies abdominal pain, Denies melena, Denies hematochezia, Denies coffee ground emesis, Denies dysphagia, Denies diarrhea, Denies nausea and Denies vomiting Denies difficulty urinating, Denies dysuria, Denies urinary frequency, Denies urinary hesitancy and Denies urinary urgency Musc Denies arthralgias, Denies limited range of motion, Denies muscle cramps and Denies muscle weakness Skin/Breast Denies rash and Denies skin ulcer Neuro Denies Abnormal speech present, Denies confusion, Denies vertigo, Denies dizziness, Denies syncope, Denies headache(s), Denies memory loss and Denies seizure-like activity Psych Denies anxiety, Denies confusion, Denies depression, Denies memory loss, Denies panic attacks and Denies paranoia Endo Denies excessive sweating, Denies fatigue, Denies flushing, Denies polydipsia and Denies polyuria Aller/Immun Denies wheezing Physical exam (Primary Care) Vital Signs: Last Vital Signs Pulse 99 01/04/24 09:15 BP 110/84 01/04/24 09:15 Pulse Ox 98 01/04/24 09:15 Oxygen Delivery Method Room Air 01/04/24 09:15 BMI result Body Mass Index 28.3 Tobacco/Smoking Status: Tobacco use Status Tobacco use date assessed 09/20/23 01/04/24 09:17 Patient Tobacco Use Status Never used Tobacco 01/04/24 09:39 e-Cigarette/Vaping Use Never Used 01/04/24 09:39 Thrive Assessment: Date of Thrive Assessment Date Thrive assessed 12/15/23 01/04/24 09:17 Const General: cooperative, comfortable, no acute distress, alert and awake; No confusion Orientation/consciousness: oriented to person, oriented to place, patient oriented x3 and No confusion HENMT Head: Yes normocephalic Ears: external ears normal and TM's normal bilaterally Face and sinus: No sinus tenderness Mouth: Normal oral and palatal mucosa present and tongue normal Teeth and gingiva: dentition normal and gingiva normal Throat: Yes posterior oropharynx normal, Yes tonsils normal and Yes uvula midline Eyes Conjunctivae: conjunctivae normal Sclerae: sclerae normal Pupils: Equal, round and reactive pupils present EOM: EOMs intact bilaterally Direct Ophthalmoscopy: No no photophobia Neck Neck: Yes no lymphadenopathy, No tender and Yes no JVD Thyroid: Thyroid normal Carotids: no bruits Chest Chest palpation & inspection: no tenderness Resp Effort & Inspection: normal respiratory effort, no audible wheezes, not labored and no stridor Auscultation: no crackles, no rales, no rhonchi and no wheezes Cardio Jugular venous distension: no JVD Rate: regular rate, not bradycardic and not tachycardic Rhythm: regular rhythm Bruits: no carotid bruits Peripheral pulses: Peripheral pulses 2+ throughout GI Inspection: Yes normal to inspection, No abdominal wall ecchymosis and No visible herniation Palpation (GI): Soft to palpation, nontender, no guarding, not rigid and No hepatosplenomegaly present Auscultation: normoactive bowel sounds General: Yes no CVA tenderness Back/Spine/Pelvis Back: no CVA tenderness and No back tenderness Cervical Spine: cervical ROM normal Thoracic/Lumbar Spine: thoracic and lumbar spine normal to inspection, straight leg raise negative bilaterally, No thoraco-lumbar ROM limited and No lumbar spinal tenderness Skin Lesions: no lesions Rashes: no rashes Wounds: no wounds Neuro General: oriented to person, oriented to place, patient oriented x3, CN's II-XI intact bilaterally and No confusion Cranial nerves: Yes Equal, round and reactive pupils present and Yes Normal accommodation reflex present Cognition (Neuro): normal cognition Speech: No Abnormal speech present Gait exam (Neuro): Normal gait present Motor exam (neuro): 5/5 motor strength present throughout Extrem Right upper extremity: full ROM; no cyanosis Left upper extremity: full ROM; no cyanosis Right lower extremity: no edema Left lower extremity: no edema Psych Appearance: grossly normal Mental Status: mental status grossly normal Affect: normal affect Attitude: cooperative Thought process: Normal thought process present Results AMB Hemoglobin A1c AMB Hemoglobin A1c 8.1 % Last Edit by MALIHA Spence on 01/04/24 10:00 Results Reviewed Results Reviewed: Laboratory Last Values Hgb A1c (Clinic) 8.1 % (4.0-6.0) H 01/04/24 09:19 Assessment and Plan Assessment & Plan (1) Annual physical exam: Code(s): Z00.00 - Encounter for general adult medical examination without abnormal findings (2) Diabetic foot ulcer associated with type 2 diabetes mellitus: Code(s): E11.621 - Type 2 diabetes mellitus with foot ulcer; L97.509 - Non-pressure chronic ulcer of other part of unspecified foot with unspecified severity Qualifiers: Diabetic foot ulcer location: toe Laterality: left Non-pressure ulcer stage: with fat layer exposed Qualified Code(s): E11.621 - Type 2 diabetes mellitus with foot ulcer; L97.522 - Non-pressure chronic ulcer of other part of left foot with fat layer exposed Plan: Foot ulcer has resolved. Was previously being seen by wound care management. He continues to follow and watch his feet closely. (3) DMII (diabetes mellitus, type 2): Comment: A1c 11.7% (08/2023) Code(s): E11.9 - Type 2 diabetes mellitus without complications Qualifiers: Diabetes mellitus complication status: with hyperglycemia Diabetes mellitus technician terminal and repeater insulin use: without technician terminal and repeater use Qualified Code(s): E11.65 - Type 2 diabetes mellitus with hyperglycemia Plan: Patient's type 2 diabetes has been better managed, today's A1c 8.1 from 11.7. He is more compliant with daily use of his insulin and diabetic diet. Was prescribed Farxiga due to his new onset Congestive heart failure though was much too extensive. Will try alternative Jardiance. He has been implementing a diabetic diet Goal A1c is to be below 7.0 (4) New onset of congestive heart failure: Code(s): I50.9 - Heart failure, unspecified Plan: Patient recently diagnosed with congestive heart failure with seemingly a reduced ejection fraction. ? Alcohol related. He has stopped drinking alcohol over the last month. Now followed by Cardiology. Continues on Entresto, furosemide and spironolactone. Farxiga was much too expensive to him at the pharmacy thus will give alternative Jardiance. (5) HTN (hypertension): Code(s): I10 - Essential (primary) hypertension Qualifiers: Hypertension type: primary hypertension Qualified Code(s): I10 - Essential (primary) hypertension Plan: Patient's blood pressure acceptable today in office. Goal blood pressures to be below 140/90 and above 100/60. Advised to monitor his blood pressure at home. (6) MDD (major depressive disorder), recurrent episode, moderate: Code(s): F33.1 - Major depressive disorder, recurrent, moderate Plan: Patient reports his depression has been fairly stable. Not interested in mental health therapy or medication at this time. He does report going through a divorce at this time. (7) Alcohol use disorder in remission: Code(s): F10.91 - Alcohol use, unspecified, in remission Plan: Has stopped drinking over the last month and in a half. Congestive heart failure his being treated. Has lost weight and has less swelling in his legs. 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 Orders: Orders Lipid Panel Today I50.9 - Heart failure, unspecified NT-proBNP Today I50.9 - Heart failure, unspecified AMB Hemoglobin A1c Today E11.65 - Type 2 diabetes mellitus with hyperglycemia Medications: New blood-glucose meter,continuous (FreeStyle Elaine 3 [place]) As directed 1 ea 0RF E11.65 - Type 2 diabetes mellitus with hyperglycemia blood-glucose sensor (FreeStyle Elaine 3 Sensor device) As directed 1 ea 6RF E11.65 - Type 2 diabetes mellitus with hyperglycemia insulin lispro (Humalog KwikPen (U-100) Insulin) 10 units (0.1 mL) subcut TID 15 mL 3RF 30 days E11.65 - Type 2 diabetes mellitus with hyperglycemia empagliflozin (Jardiance) 10 mg PO DAILY 90 tabs 1RF 90 days E11.65 - Type 2 diabetes mellitus with hyperglycemia Refilled sacubitril-valsartan 24-26 mg (Entresto) 1 tab PO BID 180 tabs 3RF 90 days I50.9 - Heart failure, unspecified Discontinued dapagliflozin propanediol (Farxiga) Discontinued Reason: Doctor's Order 10 mg PO DAILY 90 days 90 tabs 3RF Patient Instructions: :Goal: A1c to be below 7.0 Barriers: Adherence to healthy eating habits and physical activity. Coding Level of Care Code Est Pt Prev Care 40-64y(08383) Diagnoses Annual physical exam Z00.00 Diabetic ulcer of toe of left foot associated with type 2 diabetes mellitus, with fat layer exposed E11.621; L97.522 Diabetic foot ulcer location: toe Laterality: left Non-pressure ulcer stage: with fat layer exposed Type 2 diabetes mellitus with hyperglycemia, without long-term current use of insulin E11.65 Diabetes mellitus complication status: with hyperglycemia Diabetes mellitus prison insulin use: without prison use New onset of congestive heart failure I50.9 Primary hypertension I10 Hypertension type: primary hypertension MDD (major depressive disorder), recurrent episode, moderate F33.1 Alcohol use disorder in remission F10.91
[2024-01-04 09:15] VITALS: BP 110/84; PULSE 99; O2SAT 98; BMI 28.3
== END 2024-01-04 09:50 | disposition home or self-care (01) ==
PROVIDERS: PCP Physician Assistant; Visit Provider Physician Assistant
DX: Z00.00 Encounter for general adult medical examination without abnormal findings (principal); E11.621 Type 2 diabetes mellitus with foot ulcer; I11.0 Hypertensive heart disease with heart failure; I50.9 Heart failure, unspecified; F33.1 Major depressive disorder, recurrent, moderate; F10.91 Alcohol use, unspecified, in remission
CPT/HCPCS: 83036; 99396

== ENCOUNTER 2024-01-19 14:12 | Outpatient (AMB) | payer OTHER, SELFPAY ==
[2024-01-19 14:26] VITALS: BMI 28.7
--- NOTE | 2024-01-19 14:26 | A.OFFVIS_ITS ---
VS Expanded 01/19/24 14:26 Height 5 ft 10 in Weight 200 lb 2.876 oz BMI 28.7 Intake Visit Reasons: T2DM Allergies metformin Adverse Reaction (Intermediate, Verified 01/04/24 09:27) GI side effects Nutrition Presentation Details: Pt presents for MNT f/u for T2DM Pt has hx CHF Pt reports gradually making diet modifications. Reading food labels - paying attention to total carbs per serving sizes and reducing on salt inakte. Reports no ETOH for a month Food frequency omega 3 sources of foods- not including fish, including nuts/seeds (trail mix) fruits: 0-1/d + having fruits included in yogurt/cereals/trail mix dairy: 3+ /day vegetables: mostly starchy vegetables 1-2 servngs/d protein: 80-100 g/day (poultry/beef/nuts/beans/cheese/milk/prot shakes BG : 42% within target 46% ranging 180- 250 2% below 70 10% above 250 Pt reports taking DM meds as rx by MD , may forget to take basal insulin 2-3 x/wk BS Monitoring Most Recent Diabetes Results: Creatinine 0.78 mg/dL (0.5-1.4) 12/15/23 Blood Urea Nitrogen 20 mg/dL (9-16) H 12/15/23 Sodium 139 mmol/L (135-145) 12/15/23 Potassium 3.4 mmol/L (3.3-5.1) 12/15/23 Chloride 102 mmol/L (96-108) 12/15/23 Carbon Dioxide 27 mmol/L (22-29) 12/15/23 Calcium 8.8 mg/dL (8.4-10.2) 12/15/23 AST 36 U/L (5-37) 12/14/23 ALT 35 U/L (0-40) 12/14/23 Total Protein 6.7 g/dL (6.5-8.0) 12/14/23 Albumin 3.4 g/dL (3.5-5.0) L 12/14/23 [facility] Medical History CHF (congestive heart failure) Small bowel obstruction Hx of intestinal obstruction Foot callus Erectile disorder due to medical condition in male patient Knee pain, right NIDDY (non-insulin dependent diabetes mellitus in young) Surgical History Hx of esophagogastroduodenoscopy History of appendectomy History of hernia surgery Family History Mother Diabetes High blood pressure Social History (Updated 01/04/24 @ 09:39 by Tomy Cannon PA-C) Household Members: Spouse and Children Housing: House Do you presently have visiting nurse or other home services: No Alcohol intake: current Alcohol intake frequency: former alcohol drinker Patient Tobacco Use Status: Never used Tobacco e-Cigarette/Vaping Use: Never Used Second Hand Smoke Exposure: No Advance Directives Date on File: 12/14/23 service: No Current occupational status: employed Current occupation: right handed Cognitive needs: No Hearing needs: No Vision needs: No Assessment & Plan Assessment & Plan (1) DMII (diabetes mellitus, type 2): Comment: A1c 11.7% (08/2023) , 8.1% on 12/2023 Code(s): E11.9 - Type 2 diabetes mellitus without complications Category: Medical Qualifiers: Diabetes mellitus complication status: with hyperglycemia Diabetes mellitus middle or intermediate school principal insulin use: without middle or intermediate school principal use Qualified Code(s): E11.65 - Type 2 diabetes mellitus with hyperglycemia Plan: Wt: 95 Kg ( 10/2023 ), 100 K (11/2023), 91 kg (01/2024) Est kcal needs as per MSJ: 2200 (40% carb, 30% protein/fat) Est fluid needs as per 25-30 ml/d: 2863 Est prot per day as per 1 -1.5 g/kg bw: 95-114g Recommend fiber intake : 8-10 g per day and gradually increase to 25-28 g per day for women and 35-38 g for men or as tolerated Recommend sodium intake per day : less than 2000 mg Educated patient on: ( R = reviewed V = verbalizes understanding N/R = needs review N/A = not applicable * Food sources of carbohydrate, adequate serving sizes and its role in various health conditions: R * Differences between complex carbohydrates a simple carbohydrates, role of fiber in diet: R * Lean protein sources of foods: R * Differences between types of fats and role in diet (mono on saturated fat fatty acids, saturated fatty acids, trans fats): R * Food sources of sodium in salt and healthy modifications for heart health in kidney health: R, V * Vitamins and minerals: N/R * Healthy plate method concept: R * Physical activity: Benefits a precaution: N/R * Hypoglycemia protocol (rule of 15): R , V * Dietary prevention of Hyperglycemia: R Patient Instructions: Include foods with fiber in your diet gradually by Choosing complex carbohydrates (whole grain breads, brown rice/beans, whole wheat pasta, include vegetables in sauces/stews) Choose fruits vs pastries, aim at having at least 2 servings per day Keep hydrated by having water with meals/snacks Coding Level of Care Code Nutr Indiv Subseq ([id number]) Diagnoses Type 2 diabetes mellitus with hyperglycemia, without long-term current use of insulin E11.65 Diabetes mellitus complication status: with hyperglycemia Diabetes mellitus middle or intermediate school principal insulin use: without care home use Time Spent (min) 30
== END 2024-01-19 15:06 | disposition home or self-care (01) ==
PROVIDERS: PCP Physician Assistant; Visit Provider Dietitian, Registered
DX: E11.65 Type 2 diabetes mellitus with hyperglycemia (principal)

== ENCOUNTER → 2024-01-19 14:12 | Outpatient (BNVA) | payer OTHER, SELFPAY | PROVIDERS: PCP Physician Assistant; Visit Provider Dietitian, Registered | DX: E11.65 Type 2 diabetes mellitus with hyperglycemia (principal); Z71.3 Dietary counseling and surveillance | CPT/HCPCS: 97803 ==

== ENCOUNTER 2024-01-24 06:18 | Outpatient (REF) | payer OTHER, SELFPAY ==
[2024-01-24 07:08] LABS: Alanine Aminotransferase 24 U/L (0-40); Albumin Level 3.6 g/dL (3.5-5.0); Alkaline Phosphatase 57 U/L (39-117); Anion Gap 12 (12-20); Aspartate Amino Transferase 27 U/L (5-37); Bilirubin Total 0.4 mg/dL (0.0-1.0); Blood Urea Nitrogen 25 mg/dL (9-16); Calcium 9.4 mg/dL (8.4-10.2); Carbon Dioxide 26 mmol/L (22-29); Chloride 107 mmol/L (96-108); Cholesterol 166 mg/dL (<200); Estimated Glomerular Filt Rate > 60; Glucose Fasting 120 mg/dL (60-99); HDL Cholesterol 40 mg/dL (>40); LDL Cholesterol Calculated 103 mg/dL (<100); Sodium 141 mmol/L (135-145); Total Protein 7.2 g/dL (6.5-8.0); Triglycerides 117 mg/dL (<150)
[2024-01-24 07:13] LABS: Hematocrit 44.2 % (42.0-52.0); Hemoglobin 15.5 g/dl (14.0-18.0); Mean Corpuscular HGB Conc 35.1 g/dl (31.0-36.0); Mean Corpuscular Hemoglobin 28.1 pg (27.0-33.0); Mean Corpuscular Volume 80.2 fL (80.0-98.0); Mean Platelet Volume 11.1 fL (9.4-12.4); Platelet Count 127 X10*3/uL (160-400); Red Blood Count 5.51 X10*6/uL (4.60-5.80); Red Cell Distribution Width 12.7 % (11.0-16.0); White Blood Count 9.9 X10*3/uL (4.8-10.8)
[2024-01-24 08:37] LABS: Microalbum/Creatinine Ratio Ur 522.2 ug/mg cr (<30)
[2024-01-27 21:44] LABS: NT-proBNP 360 pg/mL (<125)
== END 2024-01-24 06:19 | disposition home or self-care (01) ==
LOC: HO.LAB 06:18
PROVIDERS: Absent Provider Internal Medicine; PCP Physician Assistant; Visit Provider Physician Assistant
DX: E11.65 Type 2 diabetes mellitus with hyperglycemia (principal); I50.9 Heart failure, unspecified
CPT/HCPCS: 36415; 80053; 80061; 82043; 82570; 83880; 85027

== ENCOUNTER 2024-01-28 09:02 | Outpatient (AMB) | payer OTHER, SELFPAY ==
[2024-01-28 09:17] VITALS: BP 118/60; PULSE 97; BMI 28.2
--- NOTE | 2024-01-28 09:17 | A.OFFVIS_ITS ---
Vital Signs 01/28/24 09:17 Height 5 ft 10 in Weight 196 lb 3.382 oz BMI 28.2 BP 118/60 Blood Pressure Location Lt brachial Position Sitting Pulse 97 Pulse Source Monitor Intake Visit Reasons: 4 wk follow up Allergies metformin Adverse Reaction (Intermediate, Verified 01/04/24 09:27) GI side effects Medication List - Last Reconciled 01/31/24 by Yolanda Dave ASSOCIATE PROFESSOR OF ARCHAEOLOGY-C blood-glucose meter,continuous (FreeStyle Elaine 3 [place]) As directed blood-glucose sensor (FreeStyle Elaien 3 Sensor device) As directed carvedilol 3.125 mg PO BID 90 days flash glucose sensor (FreeStyle Elaine 2 Sensor kit) As directed furosemide 40 mg PO QAM insulin glargine (Lantus Solostar U-100 Insulin) 32 units (0.32 mL) subcut BEDTIME 90 days multivitamin 1 tab PO DAILY pen needle, diabetic (BD Lula 2nd Gen Pen Needle) As directed pioglitazone (Actos) 30 mg PO DAILY 90 days sacubitril-valsartan 24-26 mg (Entresto) 1 tab PO BID 90 days spironolactone 25 mg PO DAILY 90 days HPI HPI 4 wk follow up: Details: Mark is a 43-year-old male with past medical history of diabetes and hypertension who was recently admitted for heart failure symptoms, was diuresed and sent home with appropriate med management. An echocardiogram had shown reduced EF. He was referred to Cardiology in consultation. On last visit his medications were further adjusted for appropriate heart failure management. Today he reports that he has been feeling some lightheadedness recently. 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 He has concerns about how he is feeling and is requesting time off from work. He denies having shortness of breath, PND, orthopnea or edema. Does have dizziness with position changes, no presyncope, syncope, falls. No chest discomfort with activity. He has had some sharp pains in his mid chest lasting seconds occurring randomly. He reports compliance with his medications. [facility] Medical History CHF (congestive heart failure) Small bowel obstruction Hx of intestinal obstruction Foot callus Erectile disorder due to medical condition in male patient Knee pain, right NIDDY (non-insulin dependent diabetes mellitus in young) Surgical History Hx of esophagogastroduodenoscopy History of appendectomy History of hernia surgery Family History Mother Diabetes High blood pressure Social History Household Members: Spouse and Children Housing: House Do you presently have visiting nurse or other home services: No Alcohol intake: current Alcohol intake frequency: former alcohol drinker Patient Tobacco Use Status: Never used Tobacco e-Cigarette/Vaping Use: Never Used Second Hand Smoke Exposure: No Advance Directives Date on File: 12/14/23 service: No Current occupational status: employed Current occupation: right handed Cognitive needs: No Hearing needs: No Vision needs: No Review of Systems Const All systems reviewed & are unremarkable except as noted in HPI and below Denies weakness ENT Reports dizziness Card Reports chest pain, Denies chest pain with activity, Denies syncope, Denies r apid heart rate, Denies pedal edema, Denies edema, Denies leg edema, Reports lightheadedness, Denies palpitations, Denies dyspnea, Denies dyspnea on exertion and Denies orthopnea Resp Denies cough, Denies dyspnea and Denies dyspnea on exertion GI Denies hematochezia and Denies change in stool character Musc Denies abnormal gait, Denies muscle cramps, Denies muscle weakness, Denies numbness, Denies radiating pain into limb and Denies tingling Neuro Denies abnormal gait, Reports dizziness, Denies syncope, Denies numbness, Denies tingling and Denies weakness Endo Denies palpitations Physical Exam Vital Signs: Last Vital Signs Pulse 97 01/28/24 09:17 BP 118/60 01/28/24 09:17 BMI result Body Mass Index 28.2 Const General: cooperative, healthy appearing, comfortable and no acute distress Orientation/consciousness: patient oriented x3 Neck Neck: Yes normal visual inspection and Yes no JVD Resp Effort & Inspection: normal respiratory effort Auscultation: clear to auscultation bilaterally, no crackles, no rales, no rhonchi and no wheezes Cardio Jugular venous distension: no JVD Rate: regular rate Rhythm: regular rhythm Heart sounds: S1 normal heart sound present, S2 normal heart sound present, no murmurs and no rubs Neuro General: patient oriented x3 Extrem General: Yes normal to inspection, No no pedal edema and No calf tenderness Psych Appearance: grossly normal Mental Status: mental status grossly normal Speech and movement: Normal speech and movement present Office Procedures EKG Details: Today, read by me, normal sinus rhythm, no acute ST or T-wave abnormalities, rate 97, QTC 459 millisecond [id number], Complete Assessment & Plan Assessment & Plan (1) Cardiomyopathy: Code(s): I42.9 - Cardiomyopathy, unspecified Category: Medical Plan: Newer finding decompensated heart failure with echocardiogram showing EF 35-40%, moderate diastolic dysfunction. He was diuresed and started on daily Lasix. Appropriate heart failure medications were added. On last visit he had evidence of fluid overload and ischemic eval was postponed. His medications were further adjusted. He is now on carvedilol, Entresto, Aldactone, for neurohormonal modulation. He tells me the Jardiance has not been approved yet by his insurance. Is on Lasix 40 mg daily. He does not appear fluid overloaded on exam. His blood pressures are orthostatic, sitting 122/80, standing 108/82. He is reporting lightheadedness when bending or with position changes. Note given for time off from work during this time of medication adjustment. Will have him reduce Lasix down to 20 mg daily. Will look into getting Jardiance approved. Will order a exercise nuclear stress test to evaluate for ischemia. Signs and symptoms of heart failure reviewed with him. He has a history of alcohol use which he denies current use. Cardiomyopathy could be alcohol related. Cardiology follow-up in 1 month, sooner if needed to evaluate for heart failure, orthostatic vitals, symptoms and go over stress test results. (2) Systolic heart failure: Code(s): I50.20 - Unspecified systolic (congestive) heart failure Category: Medical Plan: As above (3) HTN (hypertension): Code(s): I10 - Essential (primary) hypertension Category: Medical Qualifiers: Hypertension type: primary hypertension Qualified Code(s): I10 - Essential (primary) hypertension Plan: Resting blood pressure in normal range today, drop in blood pressure with standing. Reports of symptoms consistent with orthostatic hypotension. Reducing his Lasix. Continue all other agents. (4) Lightheadedness: Code(s): R42 - Dizziness and giddiness Category: Medical Plan: As above (5) Alcohol use disorder in remission: Code(s): F10.91 - Alcohol use, unspecified, in remission Category: Medical Plan: As above Orders: Orders NM cardiolite stress test 01/28/24 I42.9 - Cardiomyopathy, unspecified, I50.9 - Heart failure, unspecified CA stress test 01/28/24 I10 - Essential (primary) hypertension, I50.9 - Heart failure, unspecified Medications: New furosemide (Lasix) Dose reduced 20 mg PO DAILY 90 tabs 0RF Changed From empagliflozin (Jardiance) 10 mg PO DAILY 90 days 90 tabs 1RF E11.65 - Type 2 diabetes mellitus with hyperglycemia To empagliflozin (Jardiance) May need a prior authorization 10 mg PO DAILY 90 days 90 tabs 1RF E11.65 - Type 2 diabetes mellitus with hyperglycemia Discontinued furosemide Discontinued Reason: Doctor's Order 40 mg PO QAM 90 tabs 3RF Coding Level of Care Code Est Pt Level 4 (82395) Diagnoses Cardiomyopathy I42.9 Systolic heart failure I50.20 Primary hypertension I10 Hypertension type: primary hypertension Lightheadedness R42 Alcohol use disorder in remission F10.91 CPT Codes EKG - CPT: 86047-[id number], Complete ([id number]) Time Spent (min) 30
== END 2024-01-28 10:10 | disposition home or self-care (01) ==
PROVIDERS: PCP Physician Assistant; Visit Provider Nurse Practitioner Family
DX: I50.9 Heart failure, unspecified (principal)
CPT/HCPCS: 93010; 99214

== ENCOUNTER → 2024-01-28 09:02 | Outpatient (BNVA) | payer OTHER, SELFPAY | PROVIDERS: PCP Physician Assistant; Visit Provider Nurse Practitioner Family | DX: I42.9 Cardiomyopathy, unspecified (principal); I11.0 Hypertensive heart disease with heart failure; I50.20 Unspecified systolic (congestive) heart failure; R42 Dizziness and giddiness; F10.91 Alcohol use, unspecified, in remission; Z79.899 Other long term (current) drug therapy | CPT/HCPCS: 93005 ==

== ENCOUNTER 2024-02-07 13:58 | Observation (INO) | payer OTHER, SELFPAY ==
[2024-02-07] VITALS (11 sets, daily range): BP systolic 73–124; BP diastolic 47–87; PULSE 96–123; RESP 12–20; TEMP 36–36.9; O2SAT 96–100; BMI 28.7
--- NOTE | 2024-02-07 | ECG_ITS ---
Test Reason : CHEST PAIN Blood Pressure : / mmHG Vent. Rate : 115 BPM Atrial Rate : 115 BPM P-R Int : 142 ms QRS Dur : 090 ms QT Int : 338 ms P-R-T Axes : 064 -10 067 degrees QTc Int : 467 ms Sinus tachycardia Otherwise normal ECG When compared with ECG of 14-DEC-2023 09:21, No significant change was found Referred By: Generic ED Physician Electronically Signed By:CATRINA ACEVES MD
--- NOTE | ~2024-02-07 | XR_ITS ---
EXAMINATION: XR CHEST CLINICAL INFORMATION: Chest pain, shortness of breath COMPARISON: CTA chest on 12/14/2023 TECHNIQUE: 2 views of the chest were obtained. FINDINGS: No significant abnormality is noted involving the heart, lungs, mediastinum, bony thorax or soft tissues. XR/XR chest 2V IMPRESSION: Unremarkable examination.
--- NOTE | 2024-02-07 14:14 | ED_ITS ---
HPI - Chest Pain General Chief Complaint: Chest Pain Stated Complaint: Chest pain Dizziness Time Seen by Provider: 02/07/24 14:29 Source: patient and old records reviewed Mode of arrival: ambulatory Limitations: no limitations History of Present Illness ED Provider: MARTÍN SERRATO narrative: 43 yo male with PMH of DM, GERD, mood disorder, CHF EF 35-40% on ECHO in December global hypokinesis with new dx after admission for dyspnea and leg swelling - he notes he also has had fainting episodes on and off prior to his last admission and since discharged has fainted x 3. Today he had chest pain with rest and felt dyspneic he was pumping gas and fainted no trauma. He notes for the past two weeks with standing he feels weak and has a heavy head like he is going to pass out so they cut his lasix from 40mg to 20mg daily. He has not had a stress test, cardiac catheterization or holter monitor. currently on lasix 20mg daily spironolactone 25mg daily MD complaint: chest pain (fainting) Pertinent past history: other (cardiomyopathy) Onset (ago): week(s) (2) Timing of current episode: episodic Prior episodes: Yes Onset: during rest and during exertion Pain location: substernal Pain radiation: none Severity: moderate Quality: sharp Relieving factors: nothing Exacerbating factors: exertion and movement Associated symptoms: dyspnea and other (fainting) Treatment prior to arrival: none Related Data Home Medications ?Medication ?Instructions ?Recorded ?Confirmed multivitamin 1 tab PO DAILY 12/14/23 01/31/24 Previous Rx's ?Medication ?Instructions ?Recorded insulin glargine 100 unit/mL (3 32 unit (0.32 mL) subcut BEDTIME 09/14/23 mL) subcutaneous pen (Lantus 90 days #28.8 mL Solostar U-100 Insulin) flash glucose sensor (FreeStyle #1 ea 09/20/23 Elaine 2 Sensor kit) pioglitazone 30 mg tablet (Actos) 30 mg PO DAILY 90 days #90 tabs 09/20/23 carvedilol 3.125 mg tablet 3.125 mg PO BID 90 days #180 tabs 12/20/23 spironolactone 25 mg tablet 25 mg PO DAILY 90 days #90 tabs 12/20/23 blood-glucose meter,continuous #1 ea 01/04/24 (FreeStyle Elaine 3 [place]) blood-glucose sensor (FreeStyle #1 ea 01/04/24 Elaine 3 Sensor device) pen needle, diabetic 32 gauge x #1,200 ea 01/05/24 (BD Lula 2nd Gen Pen Needle) sacubitril 24 mg-valsartan 26 mg 1 tab PO BID 90 days #180 tabs 01/05/24 tablet (Entresto) empagliflozin 10 mg tablet 10 mg PO DAILY 90 days #90 tabs 02/01/24 (Jardiance) furosemide 20 mg tablet (Lasix) 20 mg PO DAILY #90 tabs 02/01/24 Allergies Allergy/AdvReac Type Severity Reaction Status Date / Time metformin AdvReac Intermediate GI side Verified 02/07/24 14:16 effects Review of Systems 2 Review of Systems: Constitutional : No Weight loss, No Fever, No Chills ENT/Mouth : No sore throat, No Rhinorrhea Eyes: No Eye Pain, No Swelling Cardiovascular : pos Chest Pain, pos SOB, no Dyspnea on Exertion, No Orthopnea, No Edema, No Palpitations Respiratory : No Cough, No Sputum Gastrointestinal : no Nausea, No Vomiting, No Diarrhea, No abdominal Pain, No Hematochezia, No Melena Genitourinary : No Dysuria, No Urinary Frequency Musculoskeletal : No joint pain, No Myalgias, No Joint Swelling Skin : No Skin Lesions, No rash Neuro : No Weakness, No Numbness, No Dizziness, No Headache, pos fainting All other systems reviewed and are negative PMFSH Past Medical History Attestation statement: The following information was validated with the patient. Source: old records reviewed Medical History CHF (congestive heart failure) Small bowel obstruction Hx of intestinal obstruction Foot callus Erectile disorder due to medical condition in male patient Knee pain, right NIDDY (non-insulin dependent diabetes mellitus in young) Surgical History Hx of esophagogastroduodenoscopy History of appendectomy History of hernia surgery Family History Family History Mother Diabetes High blood pressure Social History Social History Household Members: Spouse and Children Housing: House Do you presently have visiting nurse or other home services: No Alcohol intake: current Alcohol intake frequency: former alcohol drinker Patient Tobacco Use Status: Never used Tobacco Smoked in Last 30 Days: No e-Cigarette/Vaping Use: Never Used Second Hand Smoke Exposure: No Use of substances other than those prescribed or required for medical reasons: No Advance Directives: Yes Advance Directives on File: Yes Advance Directives Date on File: 12/16/23 Do you have a plan to hurt others: No Plan service: No Current occupational status: employed Current occupation: right handed Cognitive needs: No Hearing needs: No Vision needs: No Physical Exam 2 Vital Signs: Vital Signs: Last Vital Signs Temp 97.7 F 02/07/24 15:56 Pulse 99 02/07/24 15:56 Resp 13 02/07/24 15:56 BP 116/81 02/07/24 15:56 Pulse Ox 100 02/07/24 15:56 O2 Del Method Room Air 02/07/24 15:56 BMI result Body Mass Index 28.7 Appearance: Alert. Oriented X3. No acute distress. Eyes: Pupils equal, round and reactive to light. ENT: Pharynx normal. Neck: Normal inspection. Neck supple. CVS: Normal heart rate and rhythm. Pulses normal. Respiratory: No respiratory distress. Breath sounds normal. Abdomen: Soft and nontender. Skin: Skin warm and dry. Normal skin color. Normal skin turgor. Extremities: No lower extremity edema. No calf ttp Neuro: Oriented X 3. No motor deficit. No sensory deficit. Course Course Course Narrative: This is a Rapid Medical Exam performed in triage by Beti Lira PA-C. Full HPI, ROS and PE to be performed by primary ED provider. 43 year-old w/ PMHx HTN, CHF, cardiomyopathy, ETOH use disorder, diabetes, anxiety, presenting to the ED c/o intermittent substernal chest pain x this morning w/ dizziness, SOB & diaphoresis PE: uncomfortable, ambulating w/assistance, pale, lungs CTA, tachycardic Plan: EKG, labs, CXR, orthostatics Reevaluation(s) Reevaluation #1: + orthostatics BP dropped just sitting to 87/56 very symptomatic Reevaluation #2: 250mL of NS ordered discussed with cardiology repeat trop ordered for 515pm signed out to Juan C Medications Administered Generic Name Dose Route Start Last Admin Trade Name [place] PRN Reason Stop Dose Admin Sodium Chloride 250 mls @ 250 mls/hr 02/07/24 15:50 02/07/24 15:56 Ns IV 02/07/24 16:49 250 mls/hr .Q1H ONE Administration Medical Decision Making Medical Decision Making [facility] Narrative: 43 yo male with PMH of DM, GERD, mood disorder, CHF EF 35-40% on ECHO in December global hypokinesis with new dx on medications lasix was just cut down due to syncope/near syncope episodes here today with c/o chest pain and fainting episode no trauma reported at this time will need troponin, ddimer, CXR, BNP. Denies infectious symptoms. Will review his records from Cardiology and discuss with Dr. Ng. Differential Diagnosis Differential Diagnoses: The differential diagnosis associated with the presentation includes chest pain, arrhythmia, VTE Admission/Observation Consideration of admission/observation: Escalation of care including admission/observation considered Consult Healthcare Provider Management of the patient was discussed with: Product Engineer Lab Data [facility] Lab Attestation statement: I reviewed the patient's lab results. trop flat, BNP undetectable ddimer negative 02/07/24 15:16 02/07/24 15:16 Labs: Lab Results 02/07/24 Range/Units 15:16 WBC 7.0 (4.8-10.8) X10*3/uL RBC 5.18 (4.60-5.80) X10*6/uL Hgb 14.4 (14.0-18.0) g/dl Hct 40.5 L (42.0-52.0) % MCV 78.2 L (80.0-98.0) fL MCH 27.8 (27.0-33.0) pg MCHC 35.6 (31.0-36.0) g/dl RDW 12.8 (11.0-16.0) % Plt Count 132 L (160-400) X10*3/uL MPV 10.6 (9.4-12.4) fL Immature Gran % (Auto) 0.1 (0.0-0.4) % Neut % (Auto) 58.9 (45-73) % Lymph % (Auto) 31.7 (20-40) % [place] % (Auto) 6.9 (2-11) % Eos % (Auto) 2.0 (0-4) % Baso % (Auto) 0.4 (0-2) % Lymph # (Auto) 2.2 (1.2-4.9) X10*3/uL [place] # (Auto) 0.5 (0.1-1.2) X10*3/uL Eos # (Auto) 0.1 (0.0-0.4) X10*3/uL Baso # (Auto) 0.0 (0.0-0.2) X10*3/uL Abs Immat Gran (auto) 0.01 (0.00-0.03) X10*3/uL Absolute Neuts (auto) 4.1 (2.0-8.3) x10*3/uL Absolute Nucleated RBC 0.000 (0.0-0.012) X10*3/uL Nucleated RBC % (auto) 0.0 (0.0-0.2) /100WBC PT 12.5 (11.1-13.3) SEC INR 1.0 (0.9-1.1) D-Dimer High Sensitivty < 150 NG/ML Sodium 140 (135-145) mmol/L Potassium 3.9 (3.3-5.1) mmol/L Chloride 104 (96-108) mmol/L Carbon Dioxide 27 (22-29) mmol/L Anion Gap 13 (12-20) BUN 27 H (9-16) mg/dL Creatinine 1.25 (0.5-1.4) mg/dL Estim Creat Clear Calc 88.0 Estimated GFR > 60 Random Glucose 140 H (60-115) mg/dL Calcium 9.9 (8.4-10.2) mg/dL Magnesium 1.9 (1.6-2.6) mg/dL Total Bilirubin 0.6 (0.0-1.0) mg/dL Direct Bilirubin 0.2 (0.0-0.5) mg/dL AST 25 (5-37) U/L ALT 24 (0-40) U/L Alkaline Phosphatase 55 (39-117) U/L Troponin I High Sens < 2.7 (<3.5-35.0) ng/L B-Natriuretic Peptide < 10 (<100) pg/mL Total Protein 7.7 (6.5-8.0) g/dL Albumin 3.9 (3.5-5.0) g/dL Ethyl Alcohol < 10 mg/dL Independent Interpretation I performed an independent interpretation of an: EKG and Plain X-Ray (normal ) Interpretation: Rate: 115 Rhythm: sinus tachycardia [place]: left Normal P waves. Normal TONEY. Normal QRS complex. ST T wave : normal no NIRALI qTC: 467 prior studies: no acute ischemia The study has been interpreted contemporaneously by me. . Radiology Impression Discussion of test interpretation with radiology: I have reviewed the radiologist's reading. External Record Review External record reviewed: Inpatient record Discharge Plan Discharge Clinical Impression: Orthostatic hypotension Chest pain Qualifiers: Chest pain type: precordial pain Qualified Code(s): R07.2 - Precordial pain Syncopal episodes Qualifiers: Syncope type: unspecified Qualified Code(s): R55 - Syncope and collapse Patient Disposition: Admitted As Inpatient Print Language: Swedish
--- NOTE | 2024-02-07 15:20 | PC.NURSE ---
Pt presents today with c/o 8/10 sharp chest pain. States he was about to pump gas when he felt faint and had to rest on the car from his chest pain. VSS, afebrile. with skin warm and dry. Pt is calm and cooperative. Blood labs and xray result pending.
[2024-02-07 15:22] LABS: MANUAL DIFF FLAG NO
[2024-02-07 15:31] LABS: Prothrombin Time 12.5 SEC (11.1-13.3)
[2024-02-07 15:32] LABS: Basophils Percent Auto 0.4 % (0-2); Eosinophils Absolute Auto 0.1 X10*3/uL (0.0-0.4); Hematocrit 40.5 % (42.0-52.0); Hemoglobin 14.4 g/dl (14.0-18.0); Imm Gran Abs Auto 0.01 X10*3/uL (0.00-0.03); Imm Gran Pct Auto 0.1 % (0.0-0.4); Lymphocytes Absolute Auto 2.2 X10*3/uL (1.2-4.9); Lymphocytes Percent Auto 31.7 % (20-40); Mean Corpuscular HGB Conc 35.6 g/dl (31.0-36.0); Mean Corpuscular Hemoglobin 27.8 pg (27.0-33.0); Mean Corpuscular Volume 78.2 fL (80.0-98.0); Mean Platelet Volume 10.6 fL (9.4-12.4); Monocytes Absolute Auto 0.5 X10*3/uL (0.1-1.2); Monocytes Percent Auto 6.9 % (2-11); Neutrophils Absolute Auto 4.1 x10*3/uL (2.0-8.3); Neutrophils Percent Auto 58.9 % (45-73); Platelet Count 132 X10*3/uL (160-400); Red Blood Count 5.18 X10*6/uL (4.60-5.80); Red Cell Distribution Width 12.8 % (11.0-16.0)
[2024-02-07 15:36] LABS: D Dimer High Sensitivity < 150 NG/ML
[2024-02-07 15:40] LABS: Ethanol < 10 mg/dL
[2024-02-07 15:43] LABS: Alanine Aminotransferase 24 U/L (0-40); Albumin Level 3.9 g/dL (3.5-5.0); Alkaline Phosphatase 55 U/L (39-117); Anion Gap 13 (12-20); Aspartate Amino Transferase 25 U/L (5-37); Bilirubin Direct 0.2 mg/dL (0.0-0.5); Bilirubin Total 0.6 mg/dL (0.0-1.0); Blood Urea Nitrogen 27 mg/dL (9-16); Calcium 9.9 mg/dL (8.4-10.2); Carbon Dioxide 27 mmol/L (22-29); Chloride 104 mmol/L (96-108); Estimated Glomerular Filt Rate > 60; Glucose Random 140 mg/dL (60-115); Magnesium 1.9 mg/dL (1.6-2.6); Potassium 3.9 mmol/L (3.3-5.1); Sodium 140 mmol/L (135-145); Total Protein 7.7 g/dL (6.5-8.0)
[2024-02-07 15:46] LABS: B Type Natriuretic Peptide < 10 pg/mL (<100)
[2024-02-07 15:50] LABS: Troponin-I High Sensitivity < 2.7 ng/L (<3.5-35.0)
--- NOTE | 2024-02-07 15:52 | PC.NURSE ---
Orthos completed by Dr Kwan, orthos +, pt also asymptomatic with positional changes.
[2024-02-07] MEDS: 0.9 % Sodium Chloride 250 ML IV ×2 (15:56→20:22)
[2024-02-07 17:51] LABS: Troponin-I High Sensitivity < 2.7 ng/L (<3.5-35.0)
--- NOTE | 2024-02-07 19:51 | P.HPHOSP_ITS ---
History of Present Illness Date of Service: 02/07/24 Attending physician on admission: Hayley Murcia Chief Complaint: syncope 43-year-old male with history of heart failure reduced ejection fraction with EF 35-40%, diastolic dysfunction, cardiomyopathy, insulin-dependent type 2 diabetes, hypertension, alcohol use disorder in early remission, and mood disorder presented to the ED earlier today for evaluation of a syncopal episode that occurred earlier today while pumping gas. He was diagnosed with cardiomyopathy/CHF about 3 months ago with complaints of montiel and has been following with Dr. Ng and has been taking lasix, spironolactone, farxiga and entresto. Since his discharge he has syncopized 3 times, lasxi was subsequently decreased to 20mg daily by cardiology on 01/27. Despite this patient continues to report positional dizziness. Reports drinking adequate fluids. He also reports a chronic, nonradiating mild chest discomfort that acutely worsened while pumping gas today with associated lightheadedness and subsequent syncopal episode. He reports the positional dizziness still persists despite receiving 250 mL IVF in the ED but reports the chest pain is back to baseline, reported as mild 1-2/10 nonradiating retrosternal pressure. He denies any improvement in symptoms since medication adjustment. He has no known history of sudden cardiac known in his family though reports he does not know much about his father's side. He was previously drinking alcohol on a daily basis, but has not consumed alcohol in several months. He is also working on better glucose management. Hemoglobin A1c 6 months ago was 11.5, improved to 8.7 last month. Reports per CGM, glucose levels have been ranging 100-200. In the ED orthostatic VS positive. Hematology studies largely unremarkable. Renal function normal, electrolyte levels normal. Creatinine has slightly bumped from baseline however at 1.25, from 1.1 on 01/23 and was 0.78 on 12/14. BUN 27. Electrolyte levels normal. Troponin x2 undetectable, BNP undetectable. Ethyl alcohol level undetectable. Chest x-ray unremarkable. EKG shows sinus tachycardia, rate 115, no ST/T-wave abnormality. He will be observed overnight on telemetry for orthostatic syncope Review of Systems 2 Review of Systems: Yes all other systems are reviewed and are negative [facility] Medical History JOLIE (generalized anxiety disorder) MDD (major depressive disorder), recurrent episode, moderate Diabetic foot ulcer Cardiomyopathy Alcohol use disorder in remission HTN (hypertension) DMII (diabetes mellitus, type 2) CHF (congestive heart failure) Small bowel obstruction Hx of intestinal obstruction Foot callus Erectile disorder due to medical condition in male patient Knee pain, right Family History Mother Diabetes High blood pressure Surgical History Hx of esophagogastroduodenoscopy History of appendectomy History of hernia surgery Social History Household Members: Spouse and Children Housing: House Do you presently have visiting nurse or other home services: No Alcohol intake: current Alcohol intake frequency: former alcohol drinker Patient Tobacco Use Status: Never used Tobacco Smoked in Last 30 Days: No e-Cigarette/Vaping Use: Never Used Second Hand Smoke Exposure: No Use of substances other than those prescribed or required for medical reasons: No Advance Directives: Yes Advance Directives on File: Yes Advance Directives Date on File: 12/16/23 Do you have a plan to hurt others: No Plan service: No Current occupational status: employed Current occupation: right handed Cognitive needs: No Hearing needs: No Vision needs: No Meds Allergies Allergy/AdvReac Type Severity Reaction Status Date / Time metformin AdvReac Intermediate GI side Verified 02/07/24 14:16 effects Active Medications: Current Medications Acetaminophen (Acetaminophen 325 Mg Tablet) 650 mg PO Q6H PRN PRN Reason: Pain, Mild (Pain Scale 1-3), fever or headache Calcium Carbonate (Calcium Carbonate 750 Mg Tab.Chew) 750 mg PO Q4H PRN PRN Reason: Heartburn Enoxaparin Sodium (Enoxaparin Sodium 40 Mg/0.4 Ml Syringe) 40 mg SUBCUT Q24H JIMENEZ Magnesium Hydroxide (Milk Of Magnesia 30 Ml Oral.Susp) 30 ml PO DAILY PRN PRN Reason: Constipation Melatonin (Melatonin 3 Mg Tablet) 6 mg PO BEDTIME PRN PRN Reason: Insomnia Sodium Chloride (0.9 % Sodium Chloride Flush 3 Ml Syringe) 3 ml IVFLUSH QSHIFT JIMENEZ Home Medications ?Medication ?Instructions ?Recorded ?Confirmed ?Last Taken ?Type multivitamin 1 tab PO DAILY 12/14/23 01/31/24 12/14/23 History Physical Exam 2 Vital Signs and Narrative: Vital Signs: Last Vital Signs Temp 97.7 F 02/07/24 15:56 Pulse 103 H 02/07/24 19:06 Resp 16 02/07/24 19:06 BP 119/85 02/07/24 19:06 Pulse Ox 100 02/07/24 19:06 O2 Del Method Room Air 02/07/24 19:06 BMI result Body Mass Index 28.7 Constitutional - Awake and Alert, No apparent distress Eyes - PERRLA, EOMI Cardiovascular - S1S2, RRR, No edema Respiratory - Normal lung expansion, Normal respiratory effort, No respiratory distress, CTA bilaterally Gastrointestinal - NT / ND; +BS; No rebound or guarding Extremities - no calf tenderness bilaterally, no swelling Skin - Warm/Dry Neurological - Alert & oriented x3, CN II-XII in tact, 5/5 strength BUE and BLE Psychological - Appropriate affect Results Labs 02/07/24 15:16 02/07/24 15:16 Labs: Laboratory Results - last 24 hr 02/07/24 02/07/24 15:16 17:12 MCV 78.2 L MCH 27.8 MCHC 35.6 RDW 12.8 Plt Count 132 L MPV 10.6 Immature Gran % (Auto) 0.1 Neut % (Auto) 58.9 Lymph % (Auto) 31.7 Saunders % (Auto) 6.9 Eos % (Auto) 2.0 Baso % (Auto) 0.4 Lymph # (Auto) 2.2 Saunders # (Auto) 0.5 Eos # (Auto) 0.1 Baso # (Auto) 0.0 Abs Immat Gran (auto) 0.01 Absolute Neuts (auto) 4.1 Absolute Nucleated RBC 0.000 Nucleated RBC % (auto) 0.0 PT 12.5 INR 1.0 D-Dimer High Sensitivty < 150 Anion Gap 13 Estim Creat Clear Calc 88.0 Estimated GFR > 60 Random Glucose 140 H Calcium 9.9 Magnesium 1.9 Total Bilirubin 0.6 Direct Bilirubin 0.2 AST 25 ALT 24 Alkaline Phosphatase 55 Troponin I High Sens < 2.7 < 2.7 B-Natriuretic Peptide < 10 Total Protein 7.7 Albumin 3.9 Ethyl Alcohol < 10 Imaging Radiologist's Impressions: Impressions Chest X-Ray 02/07/24 14:43 IMPRESSION: Unremarkable examination. Assessment and Plan (1) Orthostatic hypotension: Status: Acute (2) Cardiomyopathy: Status: Acute (3) Syncopal episodes: Qualifiers: Syncope type: unspecified Qualified Code(s): R55 - Syncope and collapse Status: Acute Plan 43-year-old male with history of heart failure reduced ejection fraction with EF 35-40%, diastolic dysfunction, cardiomyopathy, insulin-dependent type 2 diabetes, hypertension, alcohol use disorder in early remission, and mood disorder to be observed for orthostatic syncope #Orthostatic hypotension/syncope -Give addl 250ml IVNS bolus, then IV NS @75ml/hr x1L -ddimer unremarkable, trops undetectable -repeat orthostatics a.m. -monitor on telemetry -cardiology consult -hold diuretics # chronic chest pain -mild 1-2 nonradiating midsternal cp at rest and with exertion, same as baseline -trop undetectable, EKG nonischemic -cardiology consult -blood pressures soft and pain mild, would hold on nitrate therapy at this time #HFrEF/diastolic dysfunction/cardiomyopathy -hold Lasix, spironolactone due to above -continue Jardiance. Hold entresto for now, consider resuming if bp allows # insulin-dependent type 2 diabetes -dose adjusted basal insulin -POC glucose, diabetic diet -Humalog on sliding scale # hypertension -hold diuretics as above -continue carvedilol. Hold entresto for now, consider resuming if bp allows DVT prophylaxis-Lovenox Full code Quality Stroke Does the patient have a stroke diagnosis?: No VTE Prior VTE?: No VTE Risk Level:: Medical - moderate - high VTE Device Contraindication: Treatment Not Indicated VTE Drug Contraindication: N/A - Med Ordered
[2024-02-07] MEDS: Enoxaparin Sodium 40 MG/0.4 ML SYRINGE SUBCUT (20:23)
--- NOTE | 2024-02-07 20:37 | PC.NURSE ---
med rec complete
[2024-02-07 21:19] LABS: Glucose, Whole Blood 92 mg/dL (60-115)
[2024-02-07] MEDS: 0.9 % Sodium Chloride 1,000 ML 75 ML IVCONT (21:24)
[2024-02-07] MEDS: Insulin Glargine,Hum.rec.anlog 100 UNIT/ML 10 ML VIAL 24 UNIT SUBCUT (21:29)
--- NOTE | 2024-02-07 22:38 | PHA.MEDREC ---
Pharmacy Consult ? Medication Reconciliation Pharmacy has completed the medication reconciliation. Confirmed meds with patient. He states he is taking both the insulin Glargine 32 units at bedtime. Patient also confirmed that he is on Insulin Lispro 10 units at Breakfast, Lunch and dinner.
[2024-02-08] VITALS (11 sets, daily range): BP systolic 80–122; BP diastolic 55–81; PULSE 88–128; RESP 16–22; TEMP 36.1–36.9; O2SAT 95–100
--- NOTE | 2024-02-08 02:18 | PC.NURSE ---
presents with CP/Syncopal episode PMH: IDDM, GERD,mood disorder, CHF 35-40% EF Admit for orthostatic hypotension, repeat orthos, hold diuretics, cardio consult IV 20RAC . Alert /oriented/Ambulatory
[2024-02-08 07:53] LABS: Glucose, Whole Blood 77 mg/dL (60-115)
[2024-02-08 08:00] LABS: MANUAL DIFF FLAG NO
[2024-02-08 08:04] LABS: Basophils Percent Auto 0.6 % (0-2); Eosinophils Absolute Auto 0.2 X10*3/uL (0.0-0.4); Eosinophils Percent Auto 2.4 % (0-4); Hematocrit 38.3 % (42.0-52.0); Hemoglobin 13.5 g/dl (14.0-18.0); Imm Gran Abs Auto 0.01 X10*3/uL (0.00-0.03); Imm Gran Pct Auto 0.2 % (0.0-0.4); Lymphocytes Absolute Auto 1.9 X10*3/uL (1.2-4.9); Lymphocytes Percent Auto 30.9 % (20-40); Mean Corpuscular HGB Conc 35.2 g/dl (31.0-36.0); Mean Corpuscular Hemoglobin 27.7 pg (27.0-33.0); Mean Corpuscular Volume 78.5 fL (80.0-98.0); Mean Platelet Volume 10.7 fL (9.4-12.4); Monocytes Absolute Auto 0.5 X10*3/uL (0.1-1.2); Monocytes Percent Auto 7.2 % (2-11); Neutrophils Absolute Auto 3.7 x10*3/uL (2.0-8.3); Neutrophils Percent Auto 58.7 % (45-73); Platelet Count 118 X10*3/uL (160-400); Red Blood Count 4.88 X10*6/uL (4.60-5.80); Red Cell Distribution Width 12.8 % (11.0-16.0); White Blood Count 6.2 X10*3/uL (4.8-10.8)
[2024-02-08 08:21] LABS: Anion Gap 10 (12-20); Blood Urea Nitrogen 30 mg/dL (9-16); Calcium 9.3 mg/dL (8.4-10.2); Carbon Dioxide 29 mmol/L (22-29); Chloride 108 mmol/L (96-108); Creatinine Clr Calc Pharmacy 111.2; Estimated Glomerular Filt Rate > 60; Glucose Random 85 mg/dL (60-115); Sodium 143 mmol/L (135-145)
[2024-02-08] MEDS: Multivitamin TABLET 1 TAB PO (08:46)
[2024-02-08] MEDS: Pioglitazone HCL 30 MG TABLET PO (08:46)
[2024-02-08] MEDS: carvediloL 3.125 MG TABLET PO ×2 (08:46→20:28)
[2024-02-08] MEDS: Empagliflozin 10 MG TABLET PO (08:46)
[2024-02-08] MEDS: 0.9 % Sodium Chloride Flush 3 ML SYRINGE IVFLUSH ×2 (08:46→16:27)
--- NOTE | 2024-02-08 09:44 | HO.PM.IMPN ---
Subjective Subjective Date of Service: 02/08/24 Interval History: overall better, but still orthostatic Physical Exam Vital Signs: Vital Signs: Last Vital Signs Temp 97.4 F 02/08/24 08:00 Pulse 128 H 02/08/24 09:19 Resp 16 02/08/24 08:00 BP 80/55 L 02/08/24 09:19 Pulse Ox 98 02/08/24 08:00 O2 Del Method Room Air 02/08/24 08:00 BMI result Body Mass Index 28.7 General: AO X 3, no acute distress Resp: CTA bilateral, no accessory muscles used CVS: S1,S2,RRR GI: soft, non tender, non distended Neuro: motor grossly intact, alert Psych: appropriate affect, appropriate insight Objective Data Active Medications Acetaminophen (Acetaminophen 325 Mg Tablet) 650 mg PO Q6H PRN PRN Reason: Pain, Mild (Pain Scale 1-3), fever or headache Calcium Carbonate (Calcium Carbonate 750 Mg Tab.Chew) 750 mg PO Q4H PRN PRN Reason: Heartburn Carvedilol (Carvedilol 3.125 Mg Tablet) 3.125 mg PO BID [facility]; Protocol Last Admin: 02/08/24 08:46 Dose: 3.125 mg Documented By: DORIS Empagliflozin (Empagliflozin 10 Mg Tablet) 10 mg PO DAILY [facility] Last Admin: 02/08/24 08:46 Dose: 10 mg Documented By: DORIS Enoxaparin Sodium (Enoxaparin Sodium 40 Mg/0.4 Ml Syringe) 40 mg SUBCUT Q24H [facility] Last Admin: 02/07/24 20:23 Dose: 40 mg Documented By: YASIR Glucose (Glucose Gel 15 Gm Gel..Gram.) 15 gm PO Q15M PRN; Protocol PRN Reason: per Hypoglycemia Standing Ord. Dextrose (D10) 250 mls @ 750 mls/hr IV Q15M PRN; Protocol PRN Reason: per Hypoglycemia Standing Ord. Insulin Glargine (Insulin Glargine,Hum.Rec.Anlog 100 Unit/Ml 10 Ml Vial) 24 unit SUBCUT BEDTIME [facility] Last Admin: 02/07/24 21:29 Dose: 24 unit Documented By: YASIR Insulin Human Lispro (Insulin Lispro 100 Unit/Ml 3 Ml Vial) 0 unit SUBCUT QIDACHS [facility]; Protocol Last Admin: 02/08/24 08:41 Dose: Not Given Documented By: DORIS Non-Admin Reason: No Insulin Coverage Magnesium Hydroxide (Milk Of Magnesia 30 Ml Oral.Susp) 30 ml PO DAILY PRN PRN Reason: Constipation Melatonin (Melatonin 3 Mg Tablet) 6 mg PO BEDTIME PRN PRN Reason: Insomnia Multivitamins/Vitamin C (Multivitamin Tablet) 1 tab PO DAILY [facility] Last Admin: 02/08/24 08:46 Dose: 1 tab Documented By: DORIS Pioglitazone HCl (Pioglitazone Hcl 30 Mg Tablet) 30 mg PO DAILY [facility] Last Admin: 02/08/24 08:46 Dose: 30 mg Documented By: DORIS Sodium Chloride (0.9 % Sodium Chloride Flush 3 Ml Syringe) 3 ml IVFLUSH QSHIFT [facility] Last Admin: 02/08/24 08:46 Dose: 3 ml Documented By: DORIS Labs 02/08/24 07:53 02/08/24 07:53 Labs: Laboratory Results - last 24 hr 02/07/24 02/07/24 02/07/24 15:16 17:12 21:15 MCV 78.2 L MCH 27.8 MCHC 35.6 RDW 12.8 Plt Count 132 L MPV 10.6 Immature Gran % (Auto) 0.1 Neut % (Auto) 58.9 Lymph % (Auto) 31.7 Coffee % (Auto) 6.9 Eos % (Auto) 2.0 Baso % (Auto) 0.4 Lymph # (Auto) 2.2 Coffee # (Auto) 0.5 Eos # (Auto) 0.1 Baso # (Auto) 0.0 Abs Immat Gran (auto) 0.01 Absolute Neuts (auto) 4.1 Absolute Nucleated RBC 0.000 Nucleated RBC % (auto) 0.0 PT 12.5 INR 1.0 D-Dimer High Sensitivty < 150 Anion Gap 13 Estim Creat Clear Calc 88.0 Estimated GFR > 60 POC Glucose 92 Random Glucose 140 H Calcium 9.9 Magnesium 1.9 Total Bilirubin 0.6 Direct Bilirubin 0.2 AST 25 ALT 24 Alkaline Phosphatase 55 Troponin I High Sens < 2.7 < 2.7 B-Natriuretic Peptide < 10 Total Protein 7.7 Albumin 3.9 Ethyl Alcohol < 10 02/08/24 02/08/24 07:31 07:53 MCV 78.5 L MCH 27.7 MCHC 35.2 RDW 12.8 Plt Count 118 L MPV 10.7 Immature Gran % (Auto) 0.2 Neut % (Auto) 58.7 Lymph % (Auto) 30.9 Coffee % (Auto) 7.2 Eos % (Auto) 2.4 Baso % (Auto) 0.6 Lymph # (Auto) 1.9 Coffee # (Auto) 0.5 Eos # (Auto) 0.2 Baso # (Auto) 0.0 Abs Immat Gran (auto) 0.01 Absolute Neuts (auto) 3.7 Absolute Nucleated RBC 0.000 Nucleated RBC % (auto) 0.0 PT INR D-Dimer High Sensitivty Anion Gap 10 L Estim Creat Clear Calc 111.2 Estimated GFR > 60 POC Glucose 77 Random Glucose 85 Calcium 9.3 D Magnesium Total Bilirubin Direct Bilirubin AST ALT Alkaline Phosphatase Troponin I High Sens B-Natriuretic Peptide Total Protein Albumin Ethyl Alcohol Assessment and Plan (1) Syncopal episodes: Status: Acute Plan 43M PMH hfref, dm, htn, etoh dependence in remission, presented with syncope syncope due to orthostatic hypotension ivf, holding bp meds, monitor chornic hfref hypovolemic, follow up cardio dm insulin etoh dependence in remission dvt prophylaxis - lovenox full code reason for continued hospitalization:still orthostatic Quality Stroke Does the patient have a stroke diagnosis?: No VTE Prior VTE?: No VTE Risk Level:: Medical - moderate - high VTE Device Contraindication: Treatment Not Indicated VTE Drug Contraindication: N/A - Med Ordered
--- NOTE | 2024-02-08 09:45 | MHC.CM.PN ---
RAUL 02/08/24, Pt is independent, no home health services, HCP on file and confirmed: Gabrielle. PCP is Ricky Cannon, pt.'s father will transport him home at [place]. DCP: home, self care. CM to follow for DC needs.
[2024-02-08] MEDS: 0.9 % Sodium Chloride 1,000 ML 125 ML IVCONT (10:32)
[2024-02-08 11:34] LABS: Glucose, Whole Blood 141 mg/dL (60-115)
--- NOTE | 2024-02-08 11:57 | P.CONCA_ITS ---
History of Present Illness History of Present Illness Date of Service: 02/08/24 Requesting physician: Slava Lynn Consult reason: other (Syncope) Chief complaint: Orthostatic hypotension/syncope Narrative: I was consulted to see Mark in cardiology consultation today for syncope. Patient's 43-year-old male with prior history of congestive heart failure with heart failure with reduced ejection fraction secondary to cardiomyopathy suspected to be alcohol induced diagnose in November when he presented with progressive symptoms of heart failure. Substance then he was admitted and diuresed and started on neurohormonal modulation. Has not had ischemic workup done for unclear reason. Has been having symptoms of lightheadedness ever since he has been on therapy. He was seen in January and had subsequently at that time his Lasix was reduced to 20 mg but he continued to have symptoms of lightheadedness. He has had delay in getting his neurohormonal modulation due to insurance issues but has been using Entresto for few weeks and Jardiance was added a week ago or so. However he does not think his symptoms have worsened. He says he does not drink alcohol much. He came to the hospital with persistent symptoms of lightheadedness and then he fainted. He said he was holding onto something and therefore did not fall but has had significant issues with orthostatic lightheadedness. This morning despite holding his Lasix and giving some fluid overnight his blood pressure remains to be orthostatic and he is lightheaded. Review of Systems 2 Constitutional: Constitutional: Reports no additional constitutional complaints Cardiovascular: Cardiovascular: Denies chest pain, Reports lightheadedness, Reports Loss of Consciousness, Denies palpitations, Denies dyspnea on exertion and Denies orthopnea Respiratory: Respiratory: Reports no additional respiratory complaints and Denies dyspnea on exertion Genitourinary: Genitourinary: Reports no additional male genitourinary complaints Musculoskeletal: Musculoskeletal: Reports no additional musculoskeletal complaints Neurologic: Reports system reviewed and no additional complaints, except as documented Psychiatric: Psychiatric: Reports no additional psychiatric complaints Endocrine: Endocrine: Reports no additional endocrine complaints and Denies palpitations PMFSH Past Medical History Medical History JOLIE (generalized anxiety disorder) MDD (major depressive disorder), recurrent episode, moderate Diabetic foot ulcer Cardiomyopathy Alcohol use disorder in remission HTN (hypertension) DMII (diabetes mellitus, type 2) CHF (congestive heart failure) Small bowel obstruction Hx of intestinal obstruction Foot callus Erectile disorder due to medical condition in male patient Knee pain, right Family History Family History Mother Diabetes High blood pressure Surgical History Surgical History Hx of esophagogastroduodenoscopy History of appendectomy History of hernia surgery Social History Social History Household Members: Spouse, Family and Children Household Members Other:: three kids and Housing: House Do you presently have visiting nurse or other home services: No Alcohol intake: current Alcohol intake frequency: former alcohol drinker Patient Tobacco Use Status: Never used Tobacco Smoked in Last 30 Days: No e-Cigarette/Vaping Use: Never Used Second Hand Smoke Exposure: No Use of substances other than those prescribed or required for medical reasons: No Currently Displaying Signs/Symptoms of Drug Intoxication Withdrawal: No Any prior treatment program specific to substance use: No Have you been hit, kicked, punched, or otherwise hurt by someone within the past year? If so, by whom?: No Do you feel safe in your current relationship?: No Is there a partner from a previous relationship who is making you feel unsafe now?: No Are you made to feel afraid or neglected: No Advance Directives: Yes Advance Directives on File: Yes Advance Directives Date on File: 12/16/23 Do you have a plan to hurt others: No Plan Recently lost weight without trying: No Eating poorly because of decreased appetite: Yes Nutrition Risks: No Nutritional Risk Poor oral hygiene: No service: No Current occupational status: employed Current occupation: right handed Cognitive needs: No Hearing needs: No Vision needs: No Meds Allergies Allergy/AdvReac Type Severity Reaction Status Date / Time metformin AdvReac Intermediate GI side Verified 02/07/24 14:16 effects Active Medications: Current Medications Acetaminophen (Acetaminophen 325 Mg Tablet) 650 mg PO Q6H PRN PRN Reason: Pain, Mild (Pain Scale 1-3), fever or headache Calcium Carbonate (Calcium Carbonate 750 Mg Tab.Chew) 750 mg PO Q4H PRN PRN Reason: Heartburn Carvedilol (Carvedilol 3.125 Mg Tablet) 3.125 mg PO BID JIMENEZ; Protocol Last Admin: 02/08/24 08:46 Dose: 3.125 mg Empagliflozin (Empagliflozin 10 Mg Tablet) 10 mg PO DAILY [facility] Last Admin: 02/08/24 08:46 Dose: 10 mg Enoxaparin Sodium (Enoxaparin Sodium 40 Mg/0.4 Ml Syringe) 40 mg SUBCUT Q24H [facility] Last Admin: 02/07/24 20:23 Dose: 40 mg Glucose (Glucose Gel 15 Gm Gel..Gram.) 15 gm PO Q15M PRN; Protocol PRN Reason: per Hypoglycemia Standing Ord. Dextrose (D10) 250 mls @ 750 mls/hr IV Q15M PRN; Protocol PRN Reason: per Hypoglycemia Standing Ord. Sodium Chloride (Ns) 1,000 mls @ 250 mls/hr IVCONT .Q4H [facility] Stop: 02/08/24 14:38 Last Infusion: 02/08/24 11:00 Dose: 250 mls/hr Insulin Glargine (Insulin Glargine,Hum.Rec.Anlog 100 Unit/Ml 10 Ml Vial) 24 unit SUBCUT BEDTIME [facility] Last Admin: 02/07/24 21:29 Dose: 24 unit Insulin Human Lispro (Insulin Lispro 100 Unit/Ml 3 Ml Vial) 0 unit SUBCUT QIDACHS [facility]; Protocol Last Admin: 02/08/24 11:44 Dose: Not Given Magnesium Hydroxide (Milk Of Magnesia 30 Ml Oral.Susp) 30 ml PO DAILY PRN PRN Reason: Constipation Melatonin (Melatonin 3 Mg Tablet) 6 mg PO BEDTIME PRN PRN Reason: Insomnia Multivitamins/Vitamin C (Multivitamin Tablet) 1 tab PO DAILY [facility] Last Admin: 02/08/24 08:46 Dose: 1 tab Pioglitazone HCl (Pioglitazone Hcl 30 Mg Tablet) 30 mg PO DAILY [facility] Last Admin: 02/08/24 08:46 Dose: 30 mg Sodium Chloride (0.9 % Sodium Chloride Flush 3 Ml Syringe) [facility] Last Admin: 02/08/24 08:46 Dose: 3 ml Home Medications ?Medication ?Instructions ?Recorded ?Confirmed ?Last Taken ?Type multivitamin 1 tab PO DAILY 12/14/23 02/07/24 02/07/24 08:00 History insulin lispro 100 unit/mL 10 unit subcut TID 02/07/24 02/07/2424 08:00 History subcutaneous pen Physical Exam 2 Vital Signs: Vital Signs: Last Vital Signs Temp 97 F 02/08/24 11:47 Pulse 97 02/08/24 11:47 Resp 16 02/08/24 11:47 BP 109/73 02/08/24 11:47 Pulse Ox 100 02/08/24 11:47 O2 Del Method Room Air 02/08/24 11:47 BMI result Body Mass Index 28.7 Pulse is thready Const: General: cooperative, comfortable, no acute distress, alert, awake and Physically active Nutritional Appearance: overweight O rientation/consciousness: patient oriented x3 Limitations: no limitations HEENT: Head: Yes normocephalic and Yes atraumatic Neck: Neck: Yes trachea midline, Yes supple and Yes no JVD Resp: Effort & Inspection: normal respiratory effort Auscultation: clear to auscultation bilaterally Cardio: Jugular venous distension: no JVD Rate: regular rate Rhythm: r egular rhythm Heart sounds: S1 normal heart sound present, S2 normal heart sound present, no click, no gallops and no murmurs GI: Auscultation: normal bowel sounds Skin: General skin exam: no rashes or lesions noted Neuro: General: patient oriented x3 and no focal motor deficits Extrem: General: Yes no clubbing, cyanosis or edema Objective Labs and Meds 02/08/24 07:53 02/08/24 07:53 Lab results: Laboratory Results - last 24 hr 02/07/24 02/07/24 02/07/24 15:16 17:12 21:15 WBC 7.0 RBC 5.18 Hgb 14.4 Hct 40.5 L MCV 78.2 L MCH 27.8 MCHC 35.6 RDW 12.8 Plt Count 132 L MPV 10.6 Immature Gran % (Auto) 0.1 Neut % (Auto) 58.9 Lymph % (Auto) 31.7 [place] % (Auto) 6.9 Eos % (Auto) 2.0 Baso % (Auto) 0.4 Lymph # (Auto) 2.2 [place] # (Auto) 0.5 Eos # (Auto) 0.1 Baso # (Auto) 0.0 Abs Immat Gran (auto) 0.01 Absolute Neuts (auto) 4.1 Absolute Nucleated RBC 0.000 Nucleated RBC % (auto) 0.0 PT 12.5 INR 1.0 D-Dimer High Sensitivty < 150 Sodium 140 Potassium 3.9 Chloride 104 Carbon Dioxide 27 Anion Gap 13 BUN 27 H Creatinine 1.25 Estim Creat Clear Calc 88.0 Estimated GFR > 60 POC Glucose 92 Random Glucose 140 H Calcium 9.9 Magnesium 1.9 Total Bilirubin 0.6 Direct Bilirubin 0.2 AST 25 ALT 24 Alkaline Phosphatase 55 Troponin I High Sens < 2.7 < 2.7 B-Natriuretic Peptide < 10 Total Protein 7.7 Albumin 3.9 Ethyl Alcohol < 10 02/08/24 02/08/24 02/08/24 07:31 07:53 10:57 WBC 6.2 RBC 4.88 Hgb 13.5 L Hct 38.3 L MCV 78.5 L MCH 27.7 MCHC 35.2 RDW 12.8 Plt Count 118 L MPV 10.7 Immature Gran % (Auto) 0.2 Neut % (Auto) 58.7 Lymph % (Auto) 30.9 [place] % (Auto) 7.2 Eos % (Auto) 2.4 Baso % (Auto) 0.6 Lymph # (Auto) 1.9 [place] # (Auto) 0.5 Eos # (Auto) 0.2 Baso # (Auto) 0.0 Abs Immat Gran (auto) 0.01 Absolute Neuts (auto) 3.7 Absolute Nucleated RBC 0.000 Nucleated RBC % (auto) 0.0 PT INR D-Dimer High Sensitivty Sodium 143 Potassium 4.0 Chloride 108 Carbon Dioxide 29 Anion Gap 10 L BUN 30 H Creatinine 0.99 Estim Creat Clear Calc 111.2 Estimated GFR > 60 POC Glucose 77 141 H Random Glucose 85 Calcium 9.3 D Magnesium Total Bilirubin Direct Bilirubin AST ALT Alkaline Phosphatase Troponin I High Sens B-Natriuretic Peptide Total Protein Albumin Ethyl Alcohol EKG shows sinus tachycardia Imaging Radiologist's impression: Impressions Chest X-Ray 02/07/24 14:43 IMPRESSION: Unremarkable examination. Assessment and Plan (1) Syncopal episodes: Qualifiers: Syncope type: unspecified Qualified Code(s): R55 - Syncope and collapse Status: Acute Syncopal episodes in this young man with significant orthostasis noted most likely related to hypovolemia related to diuretic therapy as well as Jardiance therapy. Advised to hold Jardiance and discontinue diuretic therapy. Clinically appears to be euvolemic and well compensated. Also could be related to neurohormonal modulation with Entresto therapy. For now I would hydrate him with 1 L over the next 4 hours and repeat orthostatic vital signs. Mechanism of orthostatic syncope was discussed with him. Hold Entresto therapy. Continue carvedilol therapy if his blood pressure normalizes. If blood pressure continues to remain low will hold off on all vasoactive medications. Will require ischemic workup but can be done as an outpatient. Follow-up echocardiogram to be done as outpatient. Complete avoidance of alcohol was discussed with him. Will follow with you Procedures Date of Service Date of Service: 02/08/24
[2024-02-08 16:05] LABS: Glucose, Whole Blood 132 mg/dL (60-115)
[2024-02-08 19:27] LABS: Glucose, Whole Blood 147 mg/dL (60-115)
[2024-02-08] MEDS: Enoxaparin Sodium 40 MG/0.4 ML SYRINGE SUBCUT (20:29)
[2024-02-08] MEDS: Insulin Glargine,Hum.rec.anlog 100 UNIT/ML 10 ML VIAL 24 UNIT SUBCUT (20:33)
[2024-02-09] VITALS: BP 102/66; PULSE 103; RESP 20; TEMP 36.5; O2SAT 100
[2024-02-09 04:00] VITALS: BP 116/70; PULSE 97; RESP 20; TEMP 36.2; O2SAT 96
[2024-02-09 06:15] LABS: Hematocrit 37.8 % (42.0-52.0); Hemoglobin 13.3 g/dl (14.0-18.0); Mean Corpuscular HGB Conc 35.2 g/dl (31.0-36.0); Mean Corpuscular Hemoglobin 27.6 pg (27.0-33.0); Mean Corpuscular Volume 78.4 fL (80.0-98.0); Mean Platelet Volume 10.8 fL (9.4-12.4); Platelet Count 130 X10*3/uL (160-400); Red Blood Count 4.82 X10*6/uL (4.60-5.80); Red Cell Distribution Width 12.5 % (11.0-16.0); White Blood Count 6.5 X10*3/uL (4.8-10.8)
[2024-02-09 06:18] LABS: Anion Gap 10 (12-20); Blood Urea Nitrogen 25 mg/dL (9-16); Carbon Dioxide 26 mmol/L (22-29); Chloride 109 mmol/L (96-108); Creatinine Clr Calc Pharmacy 126.5; Estimated Glomerular Filt Rate > 60; Glucose Fasting 109 mg/dL (60-99); Magnesium 1.9 mg/dL (1.6-2.6); Potassium 3.7 mmol/L (3.3-5.1); Sodium 141 mmol/L (135-145)
[2024-02-09 07:32] LABS: Glucose, Whole Blood 111 mg/dL (60-115)
[2024-02-09 08:00] VITALS: BP 123/80; PULSE 97; RESP 18; TEMP 36.1; O2SAT 99
[2024-02-09 08:27] VITALS: BP 128/81
[2024-02-09] MEDS: Multivitamin TABLET 1 TAB PO (08:35)
[2024-02-09] MEDS: carvediloL 3.125 MG TABLET PO (08:35)
[2024-02-09] MEDS: Pioglitazone HCL 30 MG TABLET PO (08:35)
[2024-02-09] MEDS: Acetaminophen 325 MG TABLET 650 MG PO (08:38)
[2024-02-09] MEDS: 0.9 % Sodium Chloride Flush 3 ML SYRINGE IVFLUSH (08:39)
[2024-02-09 09:22] VITALS: BP 112/75; BP 143/59
--- NOTE | 2024-02-09 10:16 | PM.PNCARD ---
Subjective Subjective Date of Service: 02/09/24 Principal diagnosis: Syncope Interval history: Patient is feeling a lot better today blood pressure is stabilized. Denies any shortness of breath, leg edema. No orthopnea, PND. Review of Systems Review of Systems Yes all other systems are reviewed and are negative Physical Exam Vital Signs: Last Vital Signs Temp 97 F 02/09/24 08:00 Pulse 97 02/09/24 08:00 Resp 18 02/09/24 08:00 BP 143/59 H 02/09/24 09:22 Pulse Ox 99 02/09/24 08:00 O2 Del Method Room Air 02/09/24 08:00 BMI result Body Mass Index 28.7 Pulse is thready Const General: cooperative, comfortable, no acute distress, alert, awake and Physically active Nutritional Appearance: overweight Orientation/consciousness: patient oriented x3 Limitations: no limitations HEENT Head: Yes normocephalic and Yes atraumatic Neck Neck: Yes trachea midline, Yes supple and Yes no JVD Resp Effort & Inspection: normal respiratory effort Auscultation: clear to auscultation bilaterally Cardio Jugular venous distension: no JVD Rate: regular rate Rhythm: regular rhythm Heart sounds: S1 normal heart sound present, S2 normal heart sound present, no click, no gallops and no murmurs GI Auscultation: normal bowel sounds Skin General skin exam: no rashes or lesions noted Neuro General: patient oriented x3 and no focal motor deficits Extrem General: Yes no clubbing, cyanosis or edema Objective Labs and Meds 02/09/24 05:46 02/09/24 05:46 Lab results: Laboratory Results - last 24 hr 02/08/24 02/08/24 02/08/24 10:57 15:57 19:18 WBC RBC Hgb Hct MCV MCH MCHC RDW Plt Count MPV Absolute Nucleated RBC Nucleated RBC % (auto) Sodium Potassium Chloride Carbon Dioxide Anion Gap BUN Creatinine Estim Creat Clear Calc Estimated GFR POC Glucose 141 H 132 H 147 H Fasting Glucose Calcium Magnesium 02/09/24 02/09/24 05:46 07:25 WBC 6.5 RBC 4.82 Hgb 13.3 L Hct 37.8 L MCV 78.4 L MCH 27.6 MCHC 35.2 RDW 12.5 Plt Count 130 L MPV 10.8 Absolute Nucleated RBC 0.000 Nucleated RBC % (auto) 0.0 Sodium 141 Potassium 3.7 Chloride 109 H Carbon Dioxide 26 Anion Gap 10 L BUN 25 H Creatinine 0.87 Estim Creat Clear Calc 126.5 Estimated GFR > 60 POC Glucose 111 Fasting Glucose 109 H Calcium 9.0 Magnesium 1.9 Progress Note: A&P Assessment and plan (1) Orthostatic hypotension: Status: Acute Assessment and Plan: Orthostatic hypotension causing syncope related to dehydration and over diuresis and multiple medications. This has resolved after IV fluid. Patient can be discharged home. Hold off on Lasix and Jardiance as well as Entresto therapy for now. He is advised to monitor blood pressure at home multiple times a day. Also advise adequate oral hydration. (2) Cardiomyopathy: Status: Acute Assessment and Plan: Cardiomyopathy, recently diagnose. Etiology is unclear. Will need stress testing as outpatient to evaluate ischemic etiology. For now he has no signs or symptoms of heart failure. This was discussed with him. Continue carvedilol for neurohormonal modulation. Will follow up in the clinic in 1 week's to further uptitrate neurohormonal modulation. Thank you for allowing me to partake in his care. Patient can be discharged home today. Time Spent With Patient Time: Total time managing care of this patient today ____ minutes. Progress Note: Quality Stroke Does the patient have a stroke diagnosis?: No Procedures Date of Service Date of Service: 02/09/24
--- NOTE | 2024-02-09 10:57 | P.DS_ITS ---
DS: Providers Provider Date of Service: 02/09/24 Date of admission: 02/07/24 19:48 Primary care physician: Tomy Cannon PA-C Consults: 02/07/24 19:50 Consult to Cardiology Routine Consulting Provider: [facility] Reason for consultation: orthostatic syncope DS: Diagnosis Discharge Diagnosis (1) Orthostatic hypotension: Status: Acute (2) Cardiomyopathy: Status: Acute (3) Syncopal episodes: Status: Acute DS: Summary Hospital Course Hospital Course: Admission note HPI 43-year-old male with history of heart failure reduced ejection fraction with EF 35-40%, diastolic dysfunction, cardiomyopathy, insulin-dependent type 2 diabetes, hypertension, alcohol use disorder in early remission, and mood disorder presented to the ED earlier today for evaluation of a syncopal episode that occurred earlier today while pumping gas. He was diagnosed with cardiomyopathy/CHF about 3 months ago with complaints of montiel and has been following with Dr. Ng and has been taking lasix, spironolactone, farxiga and entresto. Since his discharge he has syncopized 3 times, lasxi was subsequently decreased to 20mg daily by cardiology on 01/27. Despite this patient continues to report positional dizziness. Reports drinking adequate fluids. He also reports a chronic, nonradiating mild chest discomfort that acutely worsened while pumping gas today with associated lightheadedness and subsequent syncopal episode. He reports the positional dizziness still persists despite receiving 250 mL IVF in the ED but reports the chest pain is back to baseline, reported as mild 1-2/10 nonradiating retrosternal pressure. He denies any improvement in symptoms since medication adjustment. He has no known history of sudden cardiac known in his family though reports he does not know much about his father's side. He was previously drinking alcohol on a daily basis, but has not consumed alcohol in several months. He is also working on better glucose management. Hemoglobin A1c 6 months ago was 11.5, improved to 8.7 last month. Reports per [facility], glucose levels have been ranging 100-200. In the ED orthostatic VS positive. Hematology studies largely unremarkable. Renal function normal, electrolyte levels normal. Creatinine has slightly bumped from baseline however at 1.25, from 1.1 on 01/23 and was 0.78 on 12/14. BUN 27. Electrolyte levels normal. Troponin x2 undetectable, BNP undetectable. Ethyl alcohol level undetectable. Chest x-ray unremarkable. EKG shows sinus tachycardia, rate 115, no ST/T-wave abnormality. He will be observed overnight on telemetry for orthostatic syncope. Hospital course The patient was admitted for evaluation of recurrent syncope episodes due to orthostatic hypotension as his blood pressure dropped upon standing. He was treated with IV fluids and holding Entresto, Lasix, Spironolactone and Jardiance with good response as his BP stabilized with no recurrence of the lightheadedness or syncopal episodes. Evaluated by cardiology team who recommended outpatient follow up for ischemic work up. Discharge plan Discontinue Entresto, Lasix, Jardiance and Spironolactone for now Follow with Cardiology as outpatient for further work up Time Attestation Discharge Coordination Time (in mins): 27 Quality: Safe Use of Opioids Does Pt have an Active Cancer Diagnosis on the Problem List?: No Quality: Stroke Does the patient have a stroke diagnosis?: No Physical Exam Vital Signs: Vital Signs: Last Vital Signs Temp 97 F 02/09/24 08:00 Pulse 97 02/09/24 08:00 Resp 18 02/09/24 08:00 BP 143/59 H 02/09/24 09:22 Pulse Ox 99 02/09/24 08:00 O2 Del Method Room Air 02/09/24 08:00 BMI result Body Mass Index 28.7 Const: Other: Constitutional : Awake, interactive, not in distress Neck : Normal inspection, Supple Cardiovascular : RRR, no JVP, no lower extremity edema Respiratory : good bilateral air entry, no crackles, wheezes or rhonchi Gastrointestinal: soft, lax, Normal bowel sounds, Non tender Skin : Warm, Dry Neurological : Alert & oriented x3, No focal deficit DS: Data Data Completed and Pending Labs on day of discharge: Laboratory Results - last 24 hr 02/08/24 02/08/24 02/08/24 10:57 15:57 19:18 WBC RBC Hgb Hct MCV MCH MCHC RDW Plt Count MPV Absolute Nucleated RBC Nucleated RBC % (auto) Sodium Potassium Chloride Carbon Dioxide Anion Gap BUN Creatinine Estim Creat Clear Calc Estimated GFR POC Glucose 141 H 132 H 147 H Fasting Glucose Calcium Magnesium 02/09/24 02/09/24 05:46 07:25 WBC 6.5 RBC 4.82 Hgb 13.3 L Hct 37.8 L MCV 78.4 L MCH 27.6 MCHC 35.2 RDW 12.5 Plt Count 130 L MPV 10.8 Absolute Nucleated RBC 0.000 Nucleated RBC % (auto) 0.0 Sodium 141 Potassium 3.7 Chloride 109 H Carbon Dioxide 26 Anion Gap 10 L BUN 25 H Creatinine 0.87 Estim Creat Clear Calc 126.5 Estimated GFR > 60 POC Glucose 111 Fasting Glucose 109 H Calcium 9.0 Magnesium 1.9 Imaging Chest x-ray: Radiologist's impression: ITS Impressions Chest X-Ray 02/07/24 14:43 IMPRESSION: Unremarkable examination. Discharge Plan Discharge Anticipated Discharge Date/Time: 02/09/24 10:53 Patient Disposition: Home, Self-Care Discharge Diagnosis: Orthostatic hypotension Syncope Referrals: Tomy Cannon PA-C [Primary Care Provider] - 1 Week Discharge Medications: Continued (DME) pen needle, diabetic [BD Lula 2nd Gen Pen Needle] 32 gauge x 5/32 needle See Rx Instructions .ROUTE DAILY Qty: 1200 1RF Rx Instructions: As directed insulin glargine [Lantus Solostar U-100 Insulin] 100 unit/mL (3 mL) insulin pen 32 unit subcut BEDTIME 90 Days Qty: 28.8 0RF insulin lispro 100 unit/mL insulin pen 10 unit subcut TID Rx Instructions: Breakfast, Lunch and Dinner multivitamin Tablet 1 tab PO DAILY (DME) FreeStyle Elaine 3 [place] Misc See Rx Instructions .Route Qty: 1 0RF Rx Instructions: As directed (DME) FreeStyle Elaine 3 Sensor Device See Rx Instructions .Route Qty: 1 6RF Rx Instructions: As directed pioglitazone [Actos] 30 mg tablet 30 mg PO DAILY 90 Days Qty: 90 3RF (DME) FreeStyle Elaine 2 Sensor Kit See Rx Instructions .Route Qty: 1 6RF Rx Instructions: As directed carvedilol 3.125 mg tablet 3.125 mg PO BID 90 Days Qty: 180 3RF Rx Instructions: must administer with a meal/food Discontinued Entresto 24-26 mg tablet 1 tab PO BID 90 Days Qty: 180 3RF furosemide [Lasix] 20 mg tablet 20 mg PO DAILY Qty: 90 0RF Rx Instructions: Dose reduced Jardiance 10 mg tablet 10 mg PO DAILY 90 Days Qty: 90 1RF Rx Instructions: May need a prior authorization spironolactone 25 mg tablet 25 mg PO DAILY 90 Days Qty: 90 3RF Discharge Orders: Discharge Order (Routine); Ordered 02/09/24 Ordered By: Kemal Hu Diet: Advance to usual diet Activity on Discharge: As tolerated Stand Alone Forms: Patient Portal Discharge page Print Language: Divehi Care Plan Goals: Discontinue Entresto, Lasix, Jardiance and Spironolactone for now Follow with Cardiology as outpatient for further work up Health Concerns: Read below Plan of Treatment: Read below Assessment: Read below
--- NOTE | 2024-02-09 11:34 | MHC.CM.PN ---
Pt has been medically cleared for DC, he went home via family transport, self care.
== END 2024-02-09 11:28 | disposition home or self-care (01) ==
LOC: HO.ED 16:13 → HO.EDOVER 21:14 → HO.IMC 02-08 02:47
PROVIDERS: Internal Medicine; Physician Assistant; Admitting Provider Physician Assistant; Emergency Provider Emergency Medicine; PCP Physician Assistant; Visit Provider Student in an Organized Health Care Education/Training Program
DX: I95.1 Orthostatic hypotension (principal); I42.9 Cardiomyopathy, unspecified; I11.0 Hypertensive heart disease with heart failure; I50.30 Unspecified diastolic (congestive) heart failure; R07.9 Chest pain, unspecified; E11.9 Type 2 diabetes mellitus without complications; R07.2 Precordial pain; R61 Generalized hyperhidrosis; R06.02 Shortness of breath; Z79.4 Long term (current) use of insulin; Z79.899 Other long term (current) drug therapy
CPT/HCPCS: 36415; 71046; 80048; 80076; 80307; 82947; 83735; 83880; 84484; 85025; 85027; 85379; 85610; 93005; 96360; 96361; 96372; 99222; 99285; J1650

== ENCOUNTER → 2024-02-07 14:05 | Outpatient (BNV) | payer OTHER, SELFPAY | PROVIDERS: Admitting Provider Physician Assistant; Emergency Provider Emergency Medicine; Visit Provider Internal Medicine Cardiovascular Disease | DX: R00.0 Tachycardia, unspecified (principal) | CPT/HCPCS: 93010 ==

== ENCOUNTER → 2024-02-07 19:48 | Outpatient (BNV) | payer OTHER, SELFPAY | PROVIDERS: Admitting Provider Physician Assistant; Emergency Provider Emergency Medicine; Visit Provider Internal Medicine | DX: I95.1 Orthostatic hypotension (principal); I42.9 Cardiomyopathy, unspecified; R55 Syncope and collapse | CPT/HCPCS: 99223; 99232; 99238 ==

== ENCOUNTER → 2024-02-07 19:48 | Outpatient (BNV) | payer OTHER, SELFPAY | PROVIDERS: Admitting Provider Physician Assistant; Emergency Provider Emergency Medicine; Visit Provider Internal Medicine Cardiovascular Disease | DX: I95.1 Orthostatic hypotension (principal); I42.9 Cardiomyopathy, unspecified | CPT/HCPCS: 99222; 99233 ==

== ENCOUNTER 2024-02-14 14:04 | Outpatient (AMB) | payer OTHER, SELFPAY ==
--- NOTE | 2024-02-14 14:30 | MHC.PC.OV ---
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 Hand Required: No Accompanied by: Self / Same As Patient Allergies metformin Adverse Reaction (Intermediate, Verified 02/14/24 15:13) GI side effects Medication List - Last Reconciled 02/14/24 by Tomy Cannon PA-C blood-glucose meter,continuous (FreeStyle Elaine 3 [place]) As directed blood-glucose sensor (FreeStyle Elaine 3 Sensor device) As directed carvedilol 3.125 mg PO BID 90 days flash glucose sensor (FreeStyle Elaine 2 Sensor kit) As directed insulin glargine (Lantus Solostar U-100 Insulin) 32 units (0.32 mL) subcut BEDTIME 90 days insulin lispro 10 units subcut TID multivitamin 1 tab PO DAILY pen needle, diabetic (BD Lula 2nd Gen Pen Needle) As directed pioglitazone (Actos) 30 mg PO DAILY 90 days Tobacco use date assessed: 09/20/23 Dental Screening Dental Screen Date: 09/20/23 HPI TCM HPI Details Patient is a 43-year-old male here today for a hospital discharge follow-up.? Patient has a past medical history significant for type 2 diabetes (complicated by diabetic foot ulcer), GERD. Patient recently admitted to [facility] for recurrent syncopal episodes after being discharged from the hospital previously for acute Congestive heart failure due to cardiomyopathy. While in the hospital he did have orthostatic hypotension and treated with IV fluids and holding his Entresto, Lasix, spironolactone and Jardiance with good response of his blood pressure is stabilizing. Cardiology was consulted who recommended ischemic workup as outpatient. Since his hospitalization he is feeling somewhat better though still has dizziness associated with getting up from sitting to standing position. All of his blood pressure medications have been held over the last 5 days. Today's blood pressure still low. We discussed possible etiologies and possible medications to help with low blood pressure. Does have upcoming cardiology appointment. TCM TCM Information Date of Discharge 02/09/24 Discharged From [facility] Interactive Contact Date (Reference documentation from this date) 02/14/24 [facility] Medical History JOLIE (generalized anxiety disorder) MDD (major depressive disorder), recurrent episode, moderate Diabetic foot ulcer Cardiomyopathy Alcohol use disorder in remission HTN (hypertension) DMII (diabetes mellitus, type 2) CHF (congestive heart failure) Small bowel obstruction Hx of intestinal obstruction Foot callus Erectile disorder due to medical condition in male patient Knee pain, right Surgical History Hx of esophagogastroduodenoscopy History of appendectomy History of hernia surgery Family History Mother Diabetes High blood pressure Social History Household Members: Spouse, Family and Children Household Members Other:: three kids and Housing: House Do you presently have visiting nurse or other home services: No Alcohol intake: current Alcohol intake frequency: former alcohol drinker Patient Tobacco Use Status: Never used Tobacco e-Cigarette/Vaping Use: Never Used Second Hand Smoke Exposure: No Advance Directives Date on File: 12/16/23 service: No Current occupational status: employed Current occupation: right handed Cognitive needs: No Hearing needs: No Vision needs: No Questionnaire Thrive Questionnaire Date Thrive assessed: 02/08/24 JOLIE-7 AMB Questionnaire JOLIE-7 Date JOLIE - 7 assessed: 09/20/23 Source: Developed by Drs. Josh Nava, Shelby Peres, Manuel Lloyd and colleagues, with an educational zaid from [employer]. Review of Systems Const Denies headache(s) Eyes Denies loss of vision ENT Denies vertigo, Reports dizziness, Denies headache(s) and Denies sore throat Card Denies chest pain, Denies leg edema and Reports lightheadedness Resp Denies cough, Denies hemoptysis and Denies wheezing GI Denies abdominal pain, Denies melena, Denies constipation, Denies diarrhea and Denies vomiting Denies dysuria, Denies urinary frequency and Denies urinary urgency Musc Denies arthralgias, Denies joint swelling, Denies numbness and Denies tingling Neuro Denies Abnormal speech present, Denies behavioral changes, Denies vertigo, Reports dizziness, Denies headache(s), Denies loss of vision, Denies memory loss, Denies numbness and Denies tingling Psych Denies anxiety, Denies behavioral changes, Denies depression, Denies memory loss and Denies panic attacks Srinivas/Lymph Denies easy bleeding and Denies easy bruising Aller/Immun Denies wheezing Physical exam (Primary Care) Vital Signs: Last Vital Signs Pulse 104 H 02/14/24 14:32 BP 92/64 02/14/24 14:32 Pulse Ox 96 02/14/24 14:32 Oxygen Delivery Method Room Air 02/14/24 14:32 BMI result Body Mass Index 27.7 Tobacco/Smoking Status: Tobacco use Status Tobacco use date assessed 09/20/23 02/14/24 14:30 Patient Tobacco Use Status Never used Tobacco 02/14/24 14:30 e-Cigarette/Vaping Use Never Used 02/14/24 14:30 Thrive Assessment: Date of Thrive Assessment Date Thrive assessed 02/08/24 02/14/24 14:30 Const General: healthy appearing, no acute distress, alert and awake Nutritional Appearance: well nourished Orientation/consciousness: oriented to person, oriented to place and oriented to time HENMT Ears: TM's normal bilaterally General nose exam: Normal nasal mucous membranes and turbinates present Eyes Conjunctivae: conjunctivae normal Sclerae: sclerae normal Pupils: Equal, round and reactive pupils present Neck Neck: Yes no lymphadenopathy and Yes no JVD Thyroid: Thyroid normal Carotids: no bruits Resp Effort & Inspection: normal respiratory effort and not tachypneic Auscultation: no crackles, no rales, no rhonchi and no wheezes Cardio Rate: regular rate Rhythm: regular rhythm Heart sounds: no murmurs and normal S1 and S2 GI Palpation (GI): Soft to palpation, nontender, no hepatomegaly and no splenomegaly Auscultation: normal bowel sounds Skin General skin exam: no rashes or lesions noted and dry skin Neuro General: oriented to person, oriented to place and oriented to time Cranial nerves: Yes Equal, round and reactive pupils present Speech: No Abnormal speech present Gait exam (Neuro): Normal gait present Motor exam (neuro): no tremor noted Extrem Right upper extremity: full ROM Left upper extremity: full ROM Right lower extremity: full ROM; no edema Left lower extremity: full ROM; no edema Psych Mental Status: mental status grossly normal Speech and movement: Normal speech and movement present Affect: normal affect Attitude: cooperative Thought process: Normal thought process present Assessment and Plan Assessment & Plan (1) Hospital discharge follow-up: Code(s): Z09 - Encounter for follow-up examination after completed treatment for conditions other than malignant neoplasm Plan: As per HPI (2) Orthostatic hypotension: Code(s): I95.1 - Orthostatic hypotension Plan: Patient currently still feeling somewhat dizzy at times when standing. 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 Blood pressure still low side. All of his blood pressure medication and Jardiance have been held over the last 5 days. Advised to stay well hydrated. We did discuss the possibility of starting midodrine for his low blood pressures though will appreciate cardiology's input due to his recent findings of systolic heart failure. (3) Cardiomyopathy: Code(s): I42.9 - Cardiomyopathy, unspecified Qualifiers: Cardiomyopathy type: dilated Qualified Code(s): I42.0 - Dilated cardiomyopathy (4) Acute combined systolic and diastolic CHF, NYHA class 3: Code(s): I50.41 - Acute combined systolic (congestive) and diastolic (congestive) heart failure Plan: Patient recently diagnosed with dilated cardiomyopathy and systolic heart failure. Has completely stopped drinking alcohol per patient.. Was placed on multiple medications including Entresto and furosemide though unfortunately started having orthostatic hypotension. Seems fairly euvolemic today on exam though does report having a slight cough and mild orthopnea. (5) DMII (diabetes mellitus, type 2): Comment: A1c 11.7% (08/2023) , 8.1% on 12/2023 Code(s): E11.9 - Type 2 diabetes mellitus without complications Qualifiers: Diabetes mellitus complication status: with hyperglycemia Diabetes mellitus penitentiary insulin use: without intermediate teacher use Qualified Code(s): E11.65 - Type 2 diabetes mellitus with hyperglycemia Plan: Patient reports his diabetes has been bit better controlled since being able to monitor with a continues glucose monitor. Has been compliant with all of his insulin therapy. Will consider discontinuing Actos to use heart failure Patient Instructions: Goal: A1c to be below 7.0, continue to manage heart failure symptoms Barriers: Blood pressure shifts, Adherence to physical activity and healthy eating habits Coding Level of Care Code Est Pt Level 4 (74833) Complex EM visit Add On G2211 Diagnoses Hospital discharge follow-up Z09 Orthostatic hypotension I95.1 Dilated cardiomyopathy I42.0 Cardiomyopathy type: dilated Acute combined systolic and diastolic CHF, NYHA class 3 I50.41 Type 2 diabetes mellitus with hyperglycemia, without long-term current use of insulin E11.65 Diabetes mellitus complication status: with hyperglycemia Diabetes mellitus intermediate teacher insulin use: without intermediate teacher use
[2024-02-14 14:32] VITALS: BP 92/64; PULSE 104; O2SAT 96; BMI 27.7
== END 2024-02-14 15:36 | disposition home or self-care (01) ==
PROVIDERS: PCP Physician Assistant; Visit Provider Physician Assistant
DX: E11.65 Type 2 diabetes mellitus with hyperglycemia (principal); I42.0 Dilated cardiomyopathy; I50.41 Acute combined systolic (congestive) and diastolic (congestive) heart failure; Z09 Encounter for follow-up examination after completed treatment for conditions other than malignant neoplasm; I95.1 Orthostatic hypotension
CPT/HCPCS: 99214

== ENCOUNTER 2024-02-16 13:01 | Outpatient (AMB) | payer OTHER, SELFPAY ==
--- NOTE | 2024-02-16 13:02 | A.OFFVIS_ITS ---
Vital Signs 02/16/24 13:06 02/16/24 13:25 02/16/24 13:25 02/16/24 13:26 Height 5 ft 10 in Weight 194 lb 7.163 oz BMI 27.9 BP 100/66 124/80 125/83 108/57 L Blood Pressure Location Rt brachial Rt brachial Rt brachial Rt brachial Position Sitting Supine Sitting Standing Pulse 110 H 99 107 H 122 H Pulse Source Pulse Oximeter Intake Visit Reasons: [facility] [place] [facility]- off all meds Intake Note: ED f/u. Pt c/o SOB and CP. 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 Accompanied by: Self / Same As Patient Allergies metformin Adverse Reaction (Intermediate, Verified 02/14/24 15:13) GI side effects Medication List - Last Reconciled 02/21/24 by Italia Farley NP blood-glucose meter,continuous (FreeStyle Elaine 3 [place]) As directed blood-glucose sensor (FreeStyle Elaine 3 Sensor device) As directed carvedilol (Coreg) 3.125 mg PO BID flash glucose sensor (FreeStyle Elaine 2 Sensor kit) As directed insulin glargine (Lantus Solostar U-100 Insulin) 32 units (0.32 mL) subcut BEDTIME 90 days insulin lispro 10 units subcut TID multivitamin 1 tab PO DAILY multivitamin 1 tab PO DAILY pen needle, diabetic (BD Lula 2nd Gen Pen Needle) As directed pioglitazone (Actos) 30 mg PO DAILY 90 days HPI Comments Details: 43-year-old male presents today for a follow-up after hospitalization. He was seen for syncope and dizziness. He reports his breathing is about the same and gets a sharp pain within his chest. Reports he is still feeling syncopal if he stands up. Reports stable weights at home and blood pressures systolic are between 95-120. He has an upcoming stress test on 03/09/24. He had stopped his cardiac medications. He no longer drinks. [facility] Medical History JOLIE (generalized anxiety disorder) MDD (major depressive disorder), recurrent episode, moderate Diabetic foot ulcer Cardiomyopathy Alcohol use disorder in remission HTN (hypertension) DMII (diabetes mellitus, type 2) CHF (congestive heart failure) Small bowel obstruction Hx of intestinal obstruction Foot callus Erectile disorder due to medical condition in male patient Knee pain, right Surgical History Hx of esophagogastroduodenoscopy History of appendectomy History of hernia surgery Family History Mother Diabetes High blood pressure Social History Household Members: Spouse, Family and Children Household Members Other:: three kids and Housing: House Do you presently have visiting nurse or other home services: No Alcohol intake: current Alcohol intake frequency: former alcohol drinker Patient Tobacco Use Status: Never used Tobacco e-Cigarette/Vaping Use: Never Used Second Hand Smoke Exposure: No Advance Directives Date on File: 12/16/23 service: No Current occupational status: employed Current occupation: right handed Cognitive needs: No Hearing needs: No Vision needs: No Review of Systems Const Denies chills, Denies fatigue, Denies fever(s), Denies weight gain and Denies weight loss Card Reports chest pain, Denies leg edema, Denies lightheadedness, Denies palpitations, Reports dyspnea on exertion and Denies orthopnea Resp Denies cough and Reports dyspnea on exertion GI Reports melena, Denies hematochezia and Denies change in stool character Musc Denies muscle weakness and Denies radiating pain into limb Endo Denies fatigue and Denies palpitations Physical Exam Vital Signs: Last Vital Signs Pulse 122 H 02/16/24 13:26 BP 108/57 L 02/16/24 13:26 BMI result Body Mass Index 27.9 Const General: healthy appearing and no acute distress Orientation/consciousness: patient oriented x3 HEENT Head: Yes normal to inspection Eyes General: appearance normal, both eyes and all related structures Neck Neck: Yes normal visual inspection Chest Chest palpation & inspection: normal inspection of the chest Resp Effort & Inspection: normal respiratory effort Auscultation: clear to auscultation bilaterally Cardio Jugular venous distension: no JVD Palpation: normal PMI Rate: regular rate Rhythm: regular rhythm Heart sounds: S1 normal heart sound present, S2 normal heart sound present, no click, no gallops, no murmurs and no rubs GI Inspection: Yes normal to inspection Palpation (GI): Soft to palpation Skin General skin exam: no rashes or lesions noted Neuro General: patient oriented x3 Extrem General: Yes normal to inspection Psych Appearance: grossly normal Office Procedures EKG Details: EKG today. Sinus Tachycardia. Rate 107 bpm. QRS 86 ms. QTc 477 ms. [id number], Complete Assessment & Plan Assessment & Plan (1) Cardiomyopathy: Code(s): I42.9 - Cardiomyopathy, unspecified Category: Medical Qualifiers: Cardiomyopathy type: dilated Qualified Code(s): I42.0 - Dilated cardiomyopathy Plan: Restart carvedilol 3.125mg BID. Has stress test 03/09. Monitor blood pressures and bring log to next visit. Discussed slowly increasing fluid intake. (2) Lightheadedness: Code(s): R42 - Dizziness and giddiness Category: Medical (3) Orthostatic hypotension: Code(s): I95.1 - Orthostatic hypotension Category: Medical (4) Alcohol use disorder in remission: Code(s): F10.91 - Alcohol use, unspecified, in remission Category: Medical (5) DMII (diabetes mellitus, type 2): Comment: A1c 11.7% (08/2023) , 8.1% on 12/2023 Code(s): E11.9 - Type 2 diabetes mellitus without complications Category: Medical Qualifiers: Diabetes mellitus watermaster insulin use: without senior care use Diabetes mellitus complication status: with hyperglycemia Qualified Code(s): E11.65 - Type 2 diabetes mellitus with hyperglycemia Plan Precaution with movement discussed. Adequate hydration with daily weights and salt avoidance. Continue to avoid alcohol completely and tight control on blood glucose levels. Orders: Orders B Type Natriuretic Peptide 02/16/24 I42.0 - Dilated cardiomyopathy, I95.1 - Orthostatic hypotension, R42 - Dizziness and giddiness Coding Level of Care Code Est Pt Level 4 (84006) Diagnoses Dilated cardiomyopathy I42.0 Cardiomyopathy type: dilated Lightheadedness R42 Orthostatic hypotension I95.1 Alcohol use disorder in remission F10.91 Type 2 diabetes mellitus with hyperglycemia, without long-term current use of insulin E11.65 Diabetes mellitus senior care insulin use: without senior care use Diabetes mellitus complication status: with hyperglycemia CPT Codes EKG - CPT: [id number], Complete ([id number])
[2024-02-16 13:06] VITALS: BP 100/66; PULSE 110; BMI 27.9
[2024-02-16 13:25] VITALS: BP 124/80; BP 125/83; PULSE 107; PULSE 99
[2024-02-16 13:26] VITALS: BP 108/57; PULSE 122
== END 2024-02-16 13:46 | disposition home or self-care (01) ==
PROVIDERS: PCP Physician Assistant; Visit Provider Nurse Practitioner
DX: R00.0 Tachycardia, unspecified (principal)
CPT/HCPCS: 93010; 99214

== ENCOUNTER → 2024-02-16 13:01 | Outpatient (BNVA) | payer OTHER, SELFPAY | PROVIDERS: PCP Physician Assistant; Visit Provider Nurse Practitioner | DX: I42.0 Dilated cardiomyopathy (principal); R42 Dizziness and giddiness; I95.1 Orthostatic hypotension; F10.91 Alcohol use, unspecified, in remission; E11.65 Type 2 diabetes mellitus with hyperglycemia | CPT/HCPCS: 93005 ==

== ENCOUNTER → 2024-03-09 07:50 | Outpatient (REF) | payer OTHER, SELFPAY ==
--- NOTE | ~2024-03-09 | NM_ITS ---
EXERCISE MYOCARDIAL PERFUSION STUDY INDICATION: Coronary artery disease TECHNIQUE: The patient was brought in for an exercise perfusion study on 03/09/2024. Patient performed exercise as per Eduardo protocol and was injected 35 mCi of sestamibi once target heart rate was achieved. Images were obtained using the SPECT gamma camera interlaced with the gating device. Images were obtained in supine position. Resting perfusion study was performed on 03/10/2024. Patient was administered 30 mCi of sestamibi intravenously at rest. Images were then obtained in supine position. Images were processed with the software and compared side to side in short axis, horizontal long axis and vertical long axis views. Total DLP 107mGy-cm. FINDINGS: Raw images were reviewed. The stress perfusion study showed diminished tracer uptake along the inferior wall. There is improvement with CT attenuation correction suggestive of diaphragmatic attenuation artifact. The gated study shows diminished LV systolic function with calculated LVEF of 25%. LV cavity is dilated in size. The gated study shows globally reduced wall thickening and contraction of segments. Resting study shows diminished tracer uptake along the inferior wall. There is improved uptake with CT attenuation correction suggestive of diaphragmatic attenuation artifact. Gating at rest reveals globally reduced wall thickening and contractility with an ejection fraction of 33%. The findings are consistent with no clear reversible or fixed perfusion defects. NM/NM cardiolite stress test IMPRESSION: 1. Myocardial perfusion imaging study shows probably normal myocardial perfusion. 2. Gated LVEF is 25% during stress and 33% during rest. 3. Transient ischemic dilatation not present. EKG component of the test reported separately.
--- NOTE | 2024-03-09 07:53 | CA_ITS ---
Acquisition Time: 2024-03-09 08:04:33 Total Exercise Time: 00:07:15 Test Indications: Dyspnea CP SYNCOPE Medications: SEE H Protocol: XAVI Max HR: 157 BPM 87% of Pred: 179 BPM Max BP: 134/084 mmHG Max Work Load: 8.9 METS Exercise stress test exercise 7 min 15 sec of Xavi protocol achieving 87% MPHR, with moderate SOB, 2/10 chest pressure, mild dizziness, without arrhythmias, with normotensive response to exercise, without EKG changes. Chest pain, dizziness, and shortness of breath resolved with rest. Nuclear images pending. Test reviewed with Dr. Ritter. Referred By: Yolanda Dave Overread By: Italia Farley
[2024-03-09 11:35] LABS: B Type Natriuretic Peptide 43 pg/mL (<100)
== END ==
LOC: HO.CARD 07:50
PROVIDERS: Nurse Practitioner; PCP Physician Assistant; Visit Provider Nurse Practitioner Family
DX: I11.0 Hypertensive heart disease with heart failure (principal); I50.9 Heart failure, unspecified; I42.9 Cardiomyopathy, unspecified; I42.0 Dilated cardiomyopathy; R42 Dizziness and giddiness; I95.1 Orthostatic hypotension
CPT/HCPCS: 36415; 78452; 83880; 93017; A9500

== ENCOUNTER → 2024-03-09 07:53 | Outpatient (BNV) | payer OTHER, SELFPAY | PROVIDERS: PCP Physician Assistant; Visit Provider Nurse Practitioner | DX: R06.02 Shortness of breath (principal); R42 Dizziness and giddiness | CPT/HCPCS: 78452; 93016; 93018 ==

== ENCOUNTER 2024-03-13 09:24 | Outpatient (AMB) | payer OTHER, SELFPAY ==
--- NOTE | 2024-03-13 09:38 | MHC.PC.OV ---
Vital Signs 03/13/24 09:43 Height 5 ft 10 in Weight 200 lb BMI 28.7 BP 110/78 Blood Pressure Location Lt brachial Position Sitting Pulse 108 H Pulse Source Pulse Oximeter Pulse Oximetry (%) 97 Oxygen Delivery Method Room Air Intake Visit Reasons: Follow-up Congestive heart failure Security Police Required: No Accompanied by: Self / Same As Patient Allergies metformin Adverse Reaction (Intermediate, Verified 03/13/24 09:53) GI side effects Medication List - Last Reconciled 03/13/24 by Tomy Cannon PA-C blood-glucose meter,continuous (FreeStyle Elaine 3 [place]) As directed blood-glucose sensor (FreeStyle Elaine 3 Sensor device) As directed carvedilol (Coreg) 3.125 mg PO BID flash glucose sensor (FreeStyle Elaine 2 Sensor kit) As directed insulin glargine (Lantus Solostar U-100 Insulin) 32 units (0.32 mL) subcut BEDTIME 90 days insulin lispro 10 units subcut TID multivitamin 1 tab PO DAILY multivitamin 1 tab PO DAILY pen needle, diabetic (BD Lula 2nd Gen Pen Needle) As directed pioglitazone (Actos) 30 mg PO DAILY 90 days Tobacco use date assessed: 09/20/23 Dental Screening Dental Screen Date: 09/20/23 HPI Follow-up Congestive heart failure HPI Details Patient is a 43-year-old male here today for a follow-up visit. Patient has a past medical history significant type 2 diabetes, anxiety, Congestive heart failure, GERD. Concern--> reports he has been bilateral feet and ankle weakness and pain. He would like to see a corrective therapy aide for supportive shoe inserts and be tested for neuropathy . Congestive heart failure: Now followed by [facility]. Recently got stress test without any notable EKG changes. Nuclear stress did show low EF. Did have trouble with his cardiac meds including presyncopal episodes. Did stop all of his cardiac medications at 1 time. He was advised to restart carvedilol at 3.1 mg b.i.d. She has upcoming appointment Cardiology. Did discuss his Actos with the diagnosis of Congestive heart failure. Will hold off on his Actos 30 mg has a may be causing worsening HF. [facility] Medical History JOLIE (generalized anxiety disorder) MDD (major depressive disorder), recurrent episode, moderate Diabetic foot ulcer Cardiomyopathy Alcohol use disorder in remission HTN (hypertension) DMII (diabetes mellitus, type 2) CHF (congestive heart failure) Small bowel obstruction Hx of intestinal obstruction Foot callus Erectile disorder due to medical condition in male patient Knee pain, right Surgical History Hx of esophagogastroduodenoscopy History of appendectomy History of hernia surgery Family History Mother Diabetes High blood pressure Social History Household Members: Spouse, Family and Children Household Members Other:: three kids and Housing: House Do you presently have visiting nurse or other home services: No Alcohol intake: current Alcohol intake frequency: former alcohol drinker Patient Tobacco Use Status: Never used Tobacco e-Cigarette/Vaping Use: Never Used Second Hand Smoke Exposure: No Advance Directives Date on File: 12/16/23 service: No Current occupational status: employed Current occupation: right handed Cognitive needs: No Hearing needs: No Vision needs: No Questionnaire Thrive Questionnaire Date Thrive assessed: 02/08/24 JOLIE-7 AMB Questionnaire JOLIE-7 Date JOLIE - 7 assessed: 09/20/23 Source: Developed by Drs. Josh Nava, Shelby Peres, Manuel Lloyd and colleagues, with an educational zaid from [employer]. Review of Systems Const Denies headache(s) Eyes Denies loss of vision ENT Denies vertigo, Reports dizziness, Denies headache(s) and Denies sore throat Card Details: + presyncope upon standing Denies chest pain, Denies leg edema and Denies lightheadedness Resp Denies cough, Denies hemoptysis and Denies wheezing GI Denies abdominal pain, Denies melena, Denies constipation, Denies diarrhea and Denies vomiting Denies dysuria, Denies urinary frequency and Denies urinary urgency Musc Denies arthralgias, Denies joint swelling, Denies numbness and Denies tingling Neuro Denies Abnormal speech present, Denies behavioral changes, Denies vertigo, Reports dizziness, Denies headache(s), Denies loss of vision, Denies memory loss, Denies numbness and Denies tingling Psych Denies anxiety, Denies behavioral changes, Denies depression, Denies memory loss and Denies panic attacks Srinivas/Lymph Denies easy bleeding and Denies easy bruising Aller/Immun Denies wheezing Physical exam (Primary Care) Vital Signs: Last Vital Signs Pulse 108 H 03/13/24 09:43 BP 110/78 03/13/24 09:43 Pulse Ox 97 03/13/24 09:43 Oxygen Delivery Method Room Air 03/13/24 09:43 BMI result Body Mass Index 28.7 Tobacco/Smoking Status: Tobacco use Status Tobacco use date assessed 09/20/23 03/13/24 09:38 Patient Tobacco Use Status Never used Tobacco 03/13/24 09:38 e-Cigarette/Vaping Use Never Used 03/13/24 09:38 Thrive Assessment: Date of Thrive Assessment Date Thrive assessed 02/08/24 03/13/24 09:38 Const General: healthy appearing, no acute distress, alert and awake Nutritional Appearance: well nourished Orientation/consciousness: oriented to person, oriented to place and oriented to time HENMT Ears: TM's normal bilaterally General nose exam: Normal nasal mucous membranes and turbinates present Eyes Conjunctivae: conjunctivae normal Sclerae: sclerae normal Pupils: Equal, round and reactive pupils present Neck Neck: Yes no lymphadenopathy and Yes no JVD Thyroid: Thyroid normal Carotids: no bruits Resp Effort & Inspection: normal respiratory effort and not tachypneic Auscultation: no crackles, no rales, no rhonchi and no wheezes Cardio Rate: regular rate Rhythm: regular rhythm Heart sounds: no murmurs and normal S1 and S2 GI Palpation (GI): Soft to palpation, nontender, no hepatomegaly and no splenomegaly Auscultation: normal bowel sounds Skin General skin exam: no rashes or lesions noted and dry skin Neuro General: oriented to person, oriented to place and oriented to time Cranial nerves: Yes Equal, round and reactive pupils present Speech: No Abnormal speech present Gait exam (Neuro): Normal gait present Motor exam (neuro): no tremor noted Extrem Right upper extremity: full ROM Left upper extremity: full ROM Right lower extremity: full ROM; no edema Left lower extremity: full ROM; no edema Psych Mental Status: mental status grossly normal Speech and movement: Normal speech and movement present Affect: normal affect Attitude: cooperative Thought process: Normal thought process present Assessment and Plan Assessment & Plan (1) Orthostatic hypotension: Code(s): I95.1 - Orthostatic hypotension Plan: Patient currently still feeling somewhat dizzy at times when standing. 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 Blood pressure still low side. All of his blood pressure medication has been held. Will be following up with Cardiology tomorrow. Will hold his Actos as well as he does have a diagnosis of Congestive heart failure Advised to stay well hydrated. We did discuss the possibility of starting midodrine for his low blood pressures though will appreciate cardiology's input due to his recent findings of systolic heart failure. (2) Cardiomyopathy: Code(s): I42.9 - Cardiomyopathy, unspecified Qualifiers: Cardiomyopathy type: dilated Qualified Code(s): I42.0 - Dilated cardiomyopathy Plan: As above (3) Acute combined systolic and diastolic CHF, NYHA class 3: Code(s): I50.41 - Acute combined systolic (congestive) and diastolic (congestive) heart failure Plan: Patient recently diagnosed with dilated cardiomyopathy and systolic heart failure. Has completely stopped drinking alcohol per patient.. Was placed on multiple medications including Entresto and furosemide though unfortunately started having orthostatic hypotension. Seems fairly euvolemic today, still does have orthostatic hypotension . Recent nuclear stress test showing low EF at 25%, again will follow up with Cardiology. (4) DMII (diabetes mellitus, type 2): Comment: A1c 11.7% (08/2023) , 8.1% on 12/2023 Code(s): E11.9 - Type 2 diabetes mellitus without complications Qualifiers: Diabetes mellitus complication status: with hyperglycemia Diabetes mellitus supervisor long goods insulin use: without fci use Qualified Code(s): E11.65 - Type 2 diabetes mellitus with hyperglycemia Plan: Patient reports his diabetes has been bit better controlled since being able to monitor with a continues glucose monitor. Has been compliant with all of his insulin therapy. He reports blood sugars have been well managed at home. Will discontinue Actos to use due to his new diagnosis of heart failure. Goal A1c is to be below 7.0 (5) Bilateral foot pain: Code(s): M79.671 - Pain in right foot; M79.672 - Pain in left foot Plan: Unclear if related to neuropathy in his lower extremities. Will send for EMG to evaluate for neuropathy. Will also refer to Podiatry for evaluation of shoe inserts and diabetic foot care per Orders: Orders NE electromyogram (EMG) 03/13/24 M79.671 - Pain in right foot, M79.672 - Pain in left foot PT Evaluation and Treatment 03/13/24 M79.671 - Pain in right foot, M79.672 - Pain in left foot Referrals Podiatry Referral M79.671 - Pain in right foot, M79.672 - Pain in left foot Medications: Changed From pen needle, diabetic (BD Lula 2nd Gen Pen Needle) As directed 1,200 ea 1RF E11.65 - Type 2 diabetes mellitus with hyperglycemia To pen needle, diabetic (BD Lula 2nd Gen Pen Needle) 4 times per day 1,200 ea 1RF E11.65 - Type 2 diabetes mellitus with hyperglycemia Refilled pen needle, diabetic (BD Lula 2nd Gen Pen Needle) As directed 1,200 ea 1RF pen needle, diabetic (BD Lula 2nd Gen Pen Needle) As directed 1,200 ea 1RF M79.671 - Pain in right foot, M79.672 - Pain in left foot On Hold pioglitazone (Actos) Hold Comment: Doctor's Order 30 mg PO DAILY 90 days 90 tabs 3RF E11.65 - Type 2 diabetes mellitus with hyperglycemia Coding Level of Care Code Est Pt Level 4 (75556) Diagnoses Orthostatic hypotension I95.1 Dilated cardiomyopathy I42.0 Cardiomyopathy type: dilated Acute combined systolic and diastolic CHF, NYHA class 3 I50.41 Type 2 diabetes mellitus with hyperglycemia, without long-term current use of insulin E11.65 Diabetes mellitus complication status: with hyperglycemia Diabetes mellitus fci insulin use: without fci use Bilateral foot pain M79.671; M79.672
[2024-03-13 09:43] VITALS: BP 110/78; PULSE 108; O2SAT 97; BMI 28.7
== END 2024-03-13 10:10 | disposition home or self-care (01) ==
PROVIDERS: PCP Physician Assistant; Visit Provider Physician Assistant
DX: I95.1 Orthostatic hypotension (principal); I42.0 Dilated cardiomyopathy; I50.41 Acute combined systolic (congestive) and diastolic (congestive) heart failure; E11.65 Type 2 diabetes mellitus with hyperglycemia; M79.671 Pain in right foot; M79.672 Pain in left foot
CPT/HCPCS: 99214

== ENCOUNTER 2024-03-14 13:34 | Outpatient (AMB) | payer OTHER, SELFPAY ==
[2024-03-14 14:11] VITALS: BP 128/70; PULSE 95; BMI 28.5
--- NOTE | 2024-03-14 14:11 | A.OFFVIS_ITS ---
Vital Signs 03/14/24 14:11 03/14/24 14:49 03/14/24 14:49 03/14/24 14:50 Height 5 ft 10 in Weight 198 lb 6.656 oz BMI 28.5 BP 128/70 137/92 H 147/99 H 129/88 Blood Pressure Location Lt brachial Lt brachial Lt brachial Lt brachial Position Sitting Supine Sitting Standing Pulse 95 99 102 H 112 H Pulse Source Pulse Oximeter Pulse Oximeter Pulse Oximeter Pulse Oximeter Intake Visit Reasons: s/p stress Allergies metformin Adverse Reaction (Intermediate, Verified 03/13/24 09:53) GI side effects HPI Comments Details: 43-year-old male presents today for a follow-up. He reports his dizziness has remained the same still. He has stopped Actos. Systolic blood pressures are between 80-100/60s. He has increased his fluid intake to 1.5 L. He reports he is now having palpitations 2-3 x / day. [facility] Medical History (Updated 03/14/24 @ 14:28 by Italia Farley NP) Palpitation JOLIE (generalized anxiety disorder) MDD (major depressive disorder), recurrent episode, moderate Diabetic foot ulcer Cardiomyopathy Alcohol use disorder in remission HTN (hypertension) DMII (diabetes mellitus, type 2) CHF (congestive heart failure) Small bowel obstruction Hx of intestinal obstruction Foot callus Erectile disorder due to medical condition in male patient Knee pain, right Surgical History Hx of esophagogastroduodenoscopy History of appendectomy History of hernia surgery Family History Mother Diabetes High blood pressure Social History Household Members: Spouse, Family and Children Household Members Other:: three kids and Housing: House Do you presently have visiting nurse or other home services: No Alcohol intake: current Alcohol intake frequency: former alcohol drinker Patient Tobacco Use Status: Never used Tobacco e-Cigarette/Vaping Use: Never Used Second Hand Smoke Exposure: No Advance Directives Date on File: 12/16/23 service: No Current occupational status: employed Current occupation: right handed Cognitive needs: No Hearing needs: No Vision needs: No Review of Systems Const Denies weakness ENT Reports dizziness Card Denies chest pain, Denies chest pain with activity, Denies syncope, Denies rapid heart rate, Denies pedal edema, Denies edema, Denies leg edema, Denies lightheadedness, Denies palpitations, Denies dyspnea, Denies dyspnea on exertion and Denies orthopnea Resp Denies cough, Denies dyspnea and Denies dyspnea on exertion GI Denies hematochezia and Denies change in stool character Musc Denies abnormal gait, Denies muscle cramps, Denies muscle weakness, Denies numbness, Denies radiating pain into limb and Denies tingling Neuro Denies abnormal gait, Reports dizziness, Denies syncope, Denies numbness, Denies tingling and Denies weakness Endo Denies palpitations Physical Exam Vital Signs: Last Vital Signs Pulse 112 H 03/14/24 14:50 BP 129/88 03/14/24 14:50 BMI result Body Mass Index 28.5 Results Reviewed Results Reviewed: Protocol: EDUARDO Max HR: 157 BPM 87% of Pred: 179 BPM Max BP: 134/084 mmHG Max Work Load: 8.9 METS Exercise stress test exercise 7 min 15 sec of Eduardo protocol achieving 87% MPHR, with moderate SOB, 2/10 chest pressure, mild dizziness, without arrhythmias, with normotensive response to exercise, without EKG changes. Chest pain, dizziness, and shortness of breath resolved with rest. Nuclear images pending. Test reviewed with Dr. Ritter NM/NM cardiolite stress test IMPRESSION: 1. Myocardial perfusion imaging study shows probably normal myocardial perfusion. 2. Gated LVEF is 25% during stress and 33% during rest. 3. Transient ischemic dilatation not present. Assessment & Plan Assessment & Plan (1) Lightheadedness: Code(s): R42 - Dizziness and giddiness Category: Medical (2) Palpitation: Code(s): R00.2 - Palpitations Category: Medical Plan Will have patient stop coreg to see if blood pressures and dizziness improve. Will do holter monitor to assess for arrhythmias. Myocardial perfusion images showed normal perfusion. Monitor blood pressures at home and symptoms and if not improvement to call. Case discussed with Dr. Ritter. Orders: Orders ECG 3 day holter monitor 03/14/24 R00.2 - Palpitations, R42 - Dizziness and giddiness Coding Level of Care Code Est Pt Level 4 (80476) Diagnoses Lightheadedness R42 Palpitation R00.2
[2024-03-14 14:49] VITALS: BP 137/92; BP 147/99; PULSE 102; PULSE 99
[2024-03-14 14:50] VITALS: BP 129/88; PULSE 112
== END 2024-03-14 15:04 | disposition home or self-care (01) ==
PROVIDERS: PCP Physician Assistant; Visit Provider Nurse Practitioner
DX: R42 Dizziness and giddiness (principal); R00.2 Palpitations
CPT/HCPCS: 99214

== ENCOUNTER → 2024-03-14 13:34 | Outpatient (BNVA) | payer OTHER, SELFPAY | PROVIDERS: PCP Physician Assistant; Visit Provider Nurse Practitioner | DX: R42 Dizziness and giddiness (principal); R00.2 Palpitations ==

== ENCOUNTER 2024-03-20 14:12 | Outpatient (AMB) | payer OTHER, SELFPAY ==
--- NOTE | 2024-03-20 14:15 | A.OFFVIS_ITS ---
VS Expanded 03/20/24 14:16 Height 5 ft 10 in Weight 199 lb 8.293 oz BMI 28.6 Intake Visit Reasons: T2DM/lvm Allergies metformin Adverse Reaction (Intermediate, Verified 03/13/24 09:53) GI side effects Nutrition Presentation Details: Pt presents for MNT f/u for T2DM Pt reports doing well , working on meals planning BS Monitoring Most Recent Diabetes Results: No Data to Display PFSH Medical History (Updated 03/14/24 @ 14:28 by Italia Farley NP) Palpitation JOLIE (generalized anxiety disorder) MDD (major depressive disorder), recurrent episode, moderate Diabetic foot ulcer Cardiomyopathy Alcohol use disorder in remission HTN (hypertension) DMII (diabetes mellitus, type 2) CHF (congestive heart failure) Small bowel obstruction Hx of intestinal obstruction Foot callus Erectile disorder due to medical condition in male patient Knee pain, right Surgical History Hx of esophagogastroduodenoscopy History of appendectomy History of hernia surgery Family History Mother Diabetes High blood pressure Social History Household Members: Spouse, Family and Children Household Members Other:: three kids and Housing: House Do you presently have visiting nurse or other home services: No Alcohol intake: current Alcohol intake frequency: former alcohol drinker Patient Tobacco Use Status: Never used Tobacco e-Cigarette/Vaping Use: Never Used Second Hand Smoke Exposure: No Advance Directives Date on File: 12/16/23 service: No Current occupational status: employed Current occupation: right handed Cognitive needs: No Hearing needs: No Vision needs: No Assessment & Plan Assessment & Plan (1) DMII (diabetes mellitus, type 2): Comment: A1c 11.7% (08/2023) , 8.1% on 12/2023 Code(s): E11.9 - Type 2 diabetes mellitus without complications Category: Medical Qualifiers: Diabetes mellitus complication status: with hyperglycemia Diabetes mellitus long term care phlebotomist insulin use: without long term care phlebotomist use Qualified Code(s): E11.65 - Type 2 diabetes mellitus with hyperglycemia Plan: Wt: 95 Kg ( 10/2023 ), 100 K (11/2023), 91 kg (01/2024), 90 kg (03/2024) Est kcal needs as per MSJ: 2200 (40% carb, 30% protein/fat) Est fluid needs as per 25-30 ml/d: 2863 Est prot per day as per 1 -1.5 g/kg bw: 95-114g Recommend fiber intake : 8-10 g per day and gradually increase to 25-28 g per day for women and 35-38 g for men or as tolerated Recommend sodium intake per day : less than 2000 mg Educated patient on: ( R = reviewed V = verbalizes understanding N/R = needs review N/A = not applicable * Food sources of carbohydrate, adequate serving sizes and its role in various health conditions: R * Differences between complex carbohydrates a simple carbohydrates, role of fiber in diet: R * Lean protein sources of foods: R * Differences between types of fats and role in diet (mono on saturated fat fatty acids, saturated fatty acids, trans fats): R * Food sources of sodium in salt and healthy modifications for heart health in kidney health: R, V * Healthy plate method concept: R * Physical activity: Benefits a precaution: R * Hypoglycemia protocol (rule of 15): R , V * Dietary prevention of Hyperglycemia: R Patient Instructions: Include food sources of calcium and vitamin D- Aim at including 1000 mg of calcium per day (choose fortified foods/greens, soy mack, legumes ) Take all your diabetes medications as prescribed by your doctor. Coding Level of Care Code Nutr Indiv Subseq (65397) Diagnoses Type 2 diabetes mellitus with hyperglycemia, without long-term current use of insulin E11.65 Diabetes mellitus complication status: with hyperglycemia Diabetes mellitus senior living insulin use: without long term care phlebotomist use Time Spent (min) 20
[2024-03-20 14:16] VITALS: BMI 28.6
== END 2024-03-20 14:41 | disposition home or self-care (01) ==
PROVIDERS: PCP Physician Assistant; Visit Provider Dietitian, Registered
DX: E11.65 Type 2 diabetes mellitus with hyperglycemia (principal)

== ENCOUNTER → 2024-03-20 14:12 | Outpatient (BNVA) | payer OTHER, SELFPAY | PROVIDERS: PCP Physician Assistant; Visit Provider Dietitian, Registered | DX: E11.65 Type 2 diabetes mellitus with hyperglycemia (principal); Z71.3 Dietary counseling and surveillance | CPT/HCPCS: 97803 ==

== ENCOUNTER 2024-03-24 10:35 | Outpatient (REF) | payer OTHER, SELFPAY ==
--- NOTE | 2024-03-24 10:38 | EMG_ITS ---
Chief complaint: Bilateral feet numbness, history of diabetes Reason for referral: Evaluate for neuropathy Referred by: Tomy LYMAN Procedure done: Bilateral lower extremity NCS/EMG Precautions and/or limitations: History of nonhealing ulcers; new stage I ulcer on right foot lateral plantar side, deferring needle EMG on lower extremities to avoid spread of infection. The limb temperature was monitored continuously and remained between 32-36 degrees C during the performance of the NCS. Nerve Conduction Studies Anti Sensory Summary Table ?Stim Site NR Onset (ms) Norm Onset (ms) Peak (ms) Norm Peak (ms) O-P Amp (?V) Norm O-P Amp Site1 Site2 Delta-0 (ms) Dist (cm) Ramón (m/s) Norm Ramón (m/s) Left Sural Anti Sensory (Lat Mall) Calf NR <4.0 >5.0 Calf Lat Mall 14.0 Right Sural Anti Sensory (Lat Mall) Calf NR <4.0 >5.0 Calf Lat Mall 14.0 Motor Summary Table ?Stim Site NR Onset (ms) Norm Onset (ms) O-P Amp (mV) Norm O-P Amp iAmp (mV) Amp (1st) (%) Site1 Site2 Delta-0 (ms) Dist (cm) Ramón (m/s) Norm Ramón (m/s) Left Peroneal Motor (Ext Dig Brev) Ankle ? 5.2 <4.0 0.7 >2.5 0.8 100.0 Ankle Ext Dig Brev 5.2 0.0 B Fib ? 13.8 0.5 0.6 71.4 B Fib Ankle 8.6 33.5 39 >40 Poplt ? 15.7 0.6 0.5 85.7 Poplt B Fib 1.9 5.0 26 >40 Right Peroneal Motor (Ext Dig Brev) Ankle ? 5.5 <4.0 0.5 >2.5 0.5 100.0 Ankle Ext Dig Brev 5.5 0.0 B Fib ? 14.4 0.5 0.5 100.0 B Fib Ankle 8.9 34.0 38 >40 Poplt ? 15.5 0.5 0.4 100.0 Poplt B Fib 1.1 5.0 45 >40 Left Tibial Motor (Abd Porras Brev) Ankle ? 5.7 <5 1.9 >2.5 2.4 100.0 Ankle Abd Porras Brev 5.7 0.0 Knee ? 17.0 2.1 2.7 110.5 Knee Ankle 11.3 43.0 38 >40 Right Tibial Motor (Abd Porras Brev) Ankle ? 5.2 <5 1.8 >2.5 2.1 100.0 Ankle Abd Porras Brev 5.2 0.0 Knee ? 17.7 1.5 2.0 83.3 Knee Ankle 12.5 46.0 37 >40 Paraspinal EMG ?Side Muscle Nerve Root Ins Act Fibs Psw Comment Right Lumbar Upper Rami Nml Nml Nml Right Lumbar Mid Rami Nml Nml Nml Right Lumbar Lower Rami Nml Nml Nml Left Lumbar Upper Rami Nml Nml Nml Left Lumbar Mid Rami Nml Nml Nml Left Lumbar Lower Rami Nml Nml Nml FINDINGS: Right peroneal nerve showed prolonged distal latency, very small amplitude and slow conduction velocity distally. Right tibial nerve showed prolonged distal latency, small amplitude and slow conduction velocity. Left peroneal nerve showed prolonged distal latency, small amplitude and slow conduction velocity. Left tibial nerve showed prolonged distal latency, small amplitude and slow conduction velocity. Bilateral sural nerves absent response. New stage 1 ulcer on right foot lateral plantar side, deferring needle EMG on lower extremities to avoid spread of infection. Concentric needle EMG was performed in lumbar paraspinals.. Study did not reveal signs of electric abnormalities as shown in the table above. IMPRESSION: 1. This is an abnormal study. 2. 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 3. There is no electrodiagnostic evidence for lumbar radiculopathy based on normal needle EMG of lumbar paraspinals. CLINICAL COMMENT: Patient advised to inform PCP of new ulcer on right foot. Thank you for your kind referral. Nia Elam MD, AMARI Board Certified, [place] Board [employer] and Rehabilitation (ABPMR) Board Certified, [place] Board of Electrodiagnostic Medicine (ABEM) CODIN [id number] x 2 [facility]
--- NOTE | 2024-03-24 10:40 | HM_ITS ---
Conclusion: 1. Patient was monitored for total period of 2 days and 20 hours 2. Baseline was normal sinus rhythm with average heart of 103 beats per minute 3. Frequent sinus tachycardia noted with 56% of the time heart rate about 100 beats per minute 4. No significant pauses noted 5. Occasional PACs noted 6. Patient marked the counter 34 times with no diary presented, symptoms correlating to be either sinus rhythm or sinus tachycardia MTDD
== END 2024-03-24 10:36 | disposition home or self-care (01) ==
LOC: HO.NEURO 10:35
PROVIDERS: Absent Provider Nurse Practitioner; PCP Physician Assistant; Visit Provider Physician Assistant
DX: M79.641 Pain in right hand (principal); M79.672 Pain in left foot; R00.2 Palpitations; R42 Dizziness and giddiness
CPT/HCPCS: 93242; 95885; 95909

== ENCOUNTER → 2024-03-24 10:38 | Outpatient (BNV) | payer OTHER, SELFPAY | PROVIDERS: Absent Provider Nurse Practitioner; PCP Physician Assistant; Visit Provider Physical Medicine & Rehabilitation | DX: G62.89 Other specified polyneuropathies (principal); M79.671 Pain in right foot; M79.672 Pain in left foot | CPT/HCPCS: 95885; 95909 ==

== ENCOUNTER → 2024-03-24 10:40 | Outpatient (BNV) | payer OTHER, SELFPAY | PROVIDERS: Absent Provider Nurse Practitioner; PCP Physician Assistant; Visit Provider Internal Medicine Cardiovascular Disease | DX: R00.0 Tachycardia, unspecified (principal) | CPT/HCPCS: 93244 ==

== ENCOUNTER 2024-05-04 09:00 | Outpatient (RCR) | payer OTHER, SELFPAY ==
--- NOTE | 2024-05-01 15:34 | MHC.PT.EP ---
[facility] [place] Office [place] Office [place] Office [address] Italia Hernandez [address] [phone] F: [phone] F: [phone] F: [phone] F: [phone] Physical Therapy Plan of Care Date of Evaluation: 05/01/24 Date of Surgery: Diagnosis: B foot pain Assessment: Pt is a 43 y/o M/ with HTN, DMII and CHF who is referred to PT for eval and treat of B foot pain resulting in decreased tolerance or ability for stairs, walking and completing HH chores secondary to decreased ankle ROM and strength, decreased hip and knee strength, diabetic foot ulcer, TTP over B met heads and gait abnormality. Pt is motivated and is deemed an appropriate candidate to receive skilled PT services to address their physical impairments in order to improve their function. Frequency and Duration: The patient will be seen 2x/week for 3 weeks Short Term Goals: Initiate home exercise program. Pt will improve R ankle DF strength by 1/2 grade; initial 4+/5. Pt will report at most 3/10 pain; initial 5/10. Longterm Goals: Pt will be I with home exercise program. Pt will report at most a little bit of difficulty with stairs; initial moderate. Pt will report at most a little bit of difficulty with walking 2 blocks; initial moderate. Pt will improve LEFI score by at least 9 points. Treatment Plan: Modalities to reduce pain, spasms and effusion. Manual therapy to restore motion and function. Therapeutic exercise to improve strength and flexibility. Neuromuscular re-education for posture and balance. Therapeutic activities to return to functional activities of daily living. Electronically signed by: Pedro Pablo Silveira PT. Please sign and return to therapist. Thank you for your referral.
--- NOTE | 2024-05-22 09:25 | MHC.PT.DC ---
[facility] [place] Office [place] Office [place] Office [address] Italia Hernandez [address] [facility] [phone] F: [phone] F: [phone] F: [phone] F: [phone] Physical Therapy Discharge Report Diagnosis: B foot pain Date of Surgery: Date of Evaluation: 05/01/24 Date of Discharge: 05/22/24 Treatments to Date: 2 Cancellations to Date: 5 No Shows to Date: Discharge Status: Visit Non-compliance Discharge Summary: . Electronically signed by: Pedro Pablo Silveira PT. Please sign and return to therapist. Thank you for your referral.
== END 2024-05-22 09:33 | disposition home or self-care (01) ==
LOC: HO.PT 09:00
PROVIDERS: PCP Physician Assistant; Visit Provider Physician Assistant
DX: M79.671 Pain in right foot (principal); M79.672 Pain in left foot
CPT/HCPCS: 97110; 97161

== ENCOUNTER 2024-05-09 09:06 | Outpatient (AMB) | payer OTHER, SELFPAY ==
[2024-05-09 09:24] VITALS: BP 102/78; PULSE 105; O2SAT 95; BMI 28.2
--- NOTE | 2024-05-09 09:24 | MHC.PC.OV ---
Vital Signs 05/09/24 09:24 05/09/24 10:04 Height 5 ft 10 in Weight 196 lb 4 oz BMI 28.2 BP 102/78 90/60 Blood Pressure Location Lt brachial Position Sitting Standing Pulse 105 H Pulse Source Pulse Oximeter Pulse Oximetry (%) 95 Oxygen Delivery Method Room Air Intake Visit Reasons: 8 Week F/U Director Records Management Required: No Accompanied by: Self / Same As Patient Allergies metformin Adverse Reaction (Intermediate, Verified 05/09/24 09:37) GI side effects Medication List - Last Reconciled 05/09/24 by Tomy Cannon PA-C blood-glucose meter,continuous (FreeStyle Elaine 3 [place]) As directed blood-glucose sensor (FreeStyle Elaine 3 Sensor device) As directed carvedilol 3.125 mg PO BID empagliflozin (Jardiance) 10 mg PO DAILY flash glucose sensor (FreeStyle Elaine 2 Sensor kit) As directed furosemide 20 mg PO DAILY insulin glargine (Lantus Solostar U-100 Insulin) 32 units (0.32 mL) subcut BEDTIME 90 days insulin lispro 10 units subcut TID midodrine 5 mg PO TID 90 days multivitamin 1 tab PO DAILY pen needle, diabetic (BD Lula 2nd Gen Pen Needle) 4 times per day Tobacco use date assessed: 09/20/23 Dental Screening Dental Screen Date: 09/20/23 HPI 8 Week F/U HPI Details Patient is a 43-year-old male here today for a follow-up visit. Patient has a past medical history significant type 2 diabetes, anxiety, Congestive heart failure, GERD. Concern--> reports he has been bilateral feet and ankle weakness and pain. 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 Congestive heart failure: Now followed by [facility]. Recently got stress test without any notable EKG changes. Nuclear stress did show low EF. Did have trouble with his cardiac meds including presyncopal episodes. Did stop all of his cardiac medications at 1 time. He has restarted carvedilol 3 mg b.i.d. and does use furosemide 20 mg on an as needed basis for lower extremity edema. He follow-up with Cardiology and did get a 3 day cardiac event monitor which did show frequent sinus tachycardia. Unfortunately continues to dizziness upon standing or change in his body position. Today in office does seem to have pre low blood pressure. We did discuss starting midodrine 5 mg b.i.d. to help his low blood pressure readings. Right foot ulcer: Has developed some bleeding in ecchymosis under his chronic right foot ulcer. He does report a recent trauma to his right foot. Of note did have EMGs of his lower extremity that did show pretty profound neuropathy. He is not interested in any medications to help him with his neuropathy. [facility] Medical History (Updated 05/09/24 @ 09:51 by Tomy Cannon PA-C) Palpitation JOLIE (generalized anxiety disorder) MDD (major depressive disorder), recurrent episode, moderate Diabetic foot ulcer Cardiomyopathy Alcohol use disorder in remission HTN (hypertension) DMII (diabetes mellitus, type 2) CHF (congestive heart failure) Small bowel obstruction Hx of intestinal obstruction Foot callus Erectile disorder due to medical condition in male patient Knee pain, right Surgical History Hx of esophagogastroduodenoscopy History of appendectomy History of hernia surgery Family History Mother Diabetes High blood pressure Social History Household Members: Spouse, Family and Children Household Members Other:: three kids and Housing: House Do you presently have visiting nurse or other home services: No Alcohol intake: current Alcohol intake frequency: former alcohol drinker Patient Tobacco Use Status: Never used Tobacco e-Cigarette/Vaping Use: Never Used Second Hand Smoke Exposure: No Advance Directives Date on File: 12/16/23 service: No Current occupational status: employed Current occupation: right handed Cognitive needs: No Hearing needs: No Vision needs: No Questionnaire Thrive Questionnaire Date Thrive assessed: 02/08/24 Are you currently unemployed and looking for a job?: I choose not to answer this question JOLIE-7 AMB Questionnaire JOLIE-7 Date JOLIE - 7 assessed: 09/20/23 Source: Developed by Drs. Josh Nava, Shelby Peres, Manuel Lloyd and colleagues, with an educational zaid from [employer]. Review of Systems Const Denies headache(s) Eyes Denies loss of vision ENT Denies vertigo, Denies dizziness, Denies headache(s) and Denies sore throat Card Denies chest pain, Denies leg edema and Denies lightheadedness Resp Denies cough, Denies hemoptysis and Denies wheezing GI Denies abdominal pain, Denies melena, Denies constipation, Denies diarrhea and Denies vomiting Denies dysuria, Denies urinary frequency and Denies urinary urgency Musc Denies arthralgias, Denies joint swelling, Denies numbness and Denies tingling Neuro Denies Abnormal speech present, Denies behavioral changes, Denies vertigo, Denies dizziness, Denies headache(s), Denies loss of vision, Denies memory loss, Denies numbness and Denies tingling Psych Denies anxiety, Denies behavioral changes, Denies depression, Denies memory loss and Denies panic attacks Srinivas/Lymph Denies easy bleeding and Denies easy bruising Aller/Immun Denies wheezing Physical exam (Primary Care) Vital Signs: Last Vital Signs Pulse 105 H 05/09/24 09:24 BP 102/78 05/09/24 09:24 Pulse Ox 95 05/09/24 09:24 Oxygen Delivery Method Room Air 05/09/24 09:24 BMI result Body Mass Index 28.2 Tobacco/Smoking Status: Tobacco use Status Tobacco use date assessed 09/20/23 05/09/24 09:28 Patient Tobacco Use Status Never used Tobacco 05/09/24 09:28 e-Cigarette/Vaping Use Never Used 05/09/24 09:28 Thrive Assessment: Date of Thrive Assessment Date Thrive assessed 02/08/24 05/09/24 09:28 Const General: healthy appearing, no acute distress, alert and awake Nutritional Appearance: well nourished Orientation/consciousness: oriented to person, oriented to place and oriented to time HENMT Ears: TM's normal bilaterally General nose exam: Normal nasal mucous membranes and turbinates present Eyes Conjunctivae: conjunctivae normal Sclerae: sclerae normal Pupils: Equal, round and reactive pupils present Neck Neck: Yes no lymphadenopathy and Yes no JVD Thyroid: Thyroid normal Carotids: no bruits Resp Effort & Inspection: normal respiratory effort and not tachypneic Auscultation: no crackles, no rales, no rhonchi and no wheezes Cardio Rate: regular rate Rhythm: regular rhythm Heart sounds: no murmurs and normal S1 and S2 GI Palpation (GI): Soft to palpation, nontender, no hepatomegaly and no splenomegaly Auscultation: normal bowel sounds Skin General skin exam: no rashes or lesions noted and dry skin Neuro General: oriented to person, oriented to place and oriented to time Cranial nerves: Yes Equal, round and reactive pupils present Speech: No Abnormal speech present Gait exam (Neuro): Normal gait present Motor exam (neuro): no tremor noted Extrem Other: Right upper extremity: full ROM Left upper extremity: full ROM Right lower extremity: full ROM; no edema Left lower extremity: full ROM; no edema Psych Mental Status: mental status grossly normal Speech and movement: Normal speech and movement present Affect: normal affect Attitude: cooperative Thought process: Normal thought process present Assessment and Plan Assessment & Plan (1) Orthostatic hypotension: Code(s): I95.1 - Orthostatic hypotension Plan: Patient currently still feeling somewhat dizzy at times when standing. 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 Blood pressure still low side today in office. Continues to hold Actos and Farxiga Advised to stay well hydrated. We decided to start midodrine 5 mg b.i.d. for his low blood pressures though will appreciate cardiology's input due to his recent findings of systolic heart failure. (2) Cardiomyopathy: Code(s): I42.9 - Cardiomyopathy, unspecified Qualifiers: Cardiomyopathy type: dilated Qualified Code(s): I42.0 - Dilated cardiomyopathy Plan: As above (3) DMII (diabetes mellitus, type 2): Comment: A1c 11.7% (08/2023) , 8.1% on 12/2023 Code(s): E11.9 - Type 2 diabetes mellitus without complications Qualifiers: Diabetes mellitus prison insulin use: without oil heaterman use Diabetes mellitus complication status: with hyperglycemia Qualified Code(s): E11.65 - Type 2 diabetes mellitus with hyperglycemia Plan: Patient reports his diabetes has been bit better controlled since being able to monitor with a continues glucose monitor. Has been compliant with all of his insulin therapy. He reports blood sugars have been well managed at home. Will discontinue Actos to use due to his new diagnosis of heart failure. Goal A1c is to be below 7.0 (4) Bilateral foot pain: Code(s): M79.671 - Pain in right foot; M79.672 - Pain in left foot Plan: Unclear if related to neuropathy in his lower extremities. Will send for EMG to evaluate for neuropathy. Will also refer to Podiatry for evaluation of shoe inserts and diabetic foot care per (5) Diabetic foot ulcer: Code(s): E11.621 - Type 2 diabetes mellitus with foot ulcer; L97.509 - Non-pressure chronic ulcer of other part of unspecified foot with unspecified severity Qualifiers: Diabetic foot ulcer location: midfoot Diabetes mellitus type: type 2 Laterality: right Non-pressure ulcer stage: limited to breakdown of skin Qualified Code(s): E11.621 - Type 2 diabetes mellitus with foot ulcer; L97.411 - Non-pressure chronic ulcer of right heel and midfoot limited to breakdown of skin Plan: Has noted bleeding on his right foot ulcer, did report some recent trauma where he is on the area of the ulcer. He would like to establish care with wound management. Please see picture in physical exam portion (6) Orthostatic dizziness: Code(s): R42 - Dizziness and giddiness Orders: Orders Basic Metabolic Panel Today R42 - Dizziness and giddiness XR foot RT 2V Today E11.621 - Type 2 diabetes mellitus with foot ulcer, L97.411 - Non-pressure chronic ulcer of right heel and midfoot limited to breakdown of skin Complete Blood Count no Diff Today L97.512 - Non-pressure chronic ulcer of other part of right foot with fat layer exposed Referrals Wound Care Referral E11.621 - Type 2 diabetes mellitus with foot ulcer, L97.411 - Non-pressure chronic ulcer of right heel and midfoot limited to breakdown of skin Medications: Changed From midodrine do not give last dose of day after 5PM 5 mg PO TID 90 days 270 tabs 0RF R42 - Dizziness and giddiness To midodrine do not give last dose of day after 5PM 5 mg PO BID 30 days 60 tabs 0RF R42 - Dizziness and giddiness Coding Level of Care Code Est Pt Level 4 (42077) Diagnoses Orthostatic hypotension I95.1 Dilated cardiomyopathy I42.0 Cardiomyopathy type: dilated Type 2 diabetes mellitus with hyperglycemia, without long-term current use of insulin E11.65 Diabetes mellitus oil heaterman insulin use: without prison use Diabetes mellitus complication status: with hyperglycemia Bilateral foot pain M79.671; M79.672 Diabetic ulcer of right midfoot associated with type 2 diabetes mellitus, limited to breakdown of skin E11.621; L97.411 Diabetic foot ulcer location: midfoot Diabetes mellitus type: type 2 Laterality: right Non-pressure ulcer stage: limited to breakdown of skin Orthostatic dizziness R42
[2024-05-09 10:04] VITALS: BP 90/60
== END 2024-05-09 10:05 | disposition home or self-care (01) ==
PROVIDERS: PCP Physician Assistant; Visit Provider Physician Assistant
DX: E11.65 Type 2 diabetes mellitus with hyperglycemia (principal); I42.0 Dilated cardiomyopathy; E11.621 Type 2 diabetes mellitus with foot ulcer; L97.411 Non-pressure chronic ulcer of right heel and midfoot limited to breakdown of skin; I95.1 Orthostatic hypotension; M79.671 Pain in right foot; M79.672 Pain in left foot; R42 Dizziness and giddiness

== ENCOUNTER → 2024-05-09 09:06 | Outpatient (BNVA) | payer OTHER, SELFPAY | PROVIDERS: PCP Physician Assistant; Visit Provider Physician Assistant | DX: I95.1 Orthostatic hypotension (principal); I42.0 Dilated cardiomyopathy; E11.65 Type 2 diabetes mellitus with hyperglycemia; M79.671 Pain in right foot; M79.672 Pain in left foot; E11.621 Type 2 diabetes mellitus with foot ulcer; L97.411 Non-pressure chronic ulcer of right heel and midfoot limited to breakdown of skin; R42 Dizziness and giddiness ==

== ENCOUNTER → 2024-05-10 07:54 | Outpatient (REF) | payer OTHER, SELFPAY ==
--- NOTE | 2024-05-10 08:03 | CA_ITS ---
Transthoracic Echocardiogram Patient (Last, First, Middle): Mark Humphrey, Gender: Male Date of : 1980 Age: 43 Procedure Date: 05/10/2024 Procedure Type: Transthoracic Echocardiogram Location: OP Height: 177.8 cm Weight: 88. kg BSA: 2.06 m2 Heart Rate: bpm BP: 108 / 68 mmHg Computer Systems Software Architect: TO Referring MD: Italia Farley SHOT EXAMINER Symptoms: I50.20 - Unspecified systolic (congestive) heart failure Study Quality: Adequate w contrast ECG Rhythm: Sinus Conclusions: - The left ventricular systolic function is severely decreased. The calculated ejection fraction is 28% by biplane method. Findings Procedure Information Contrast agent, definity, is being given per protocol without apparent complications. Left Ventricle Mildly increased left ventricular cavity size. There is normal left ventricular wall thickness. The left ventricular systolic function is severely decreased. The calculated ejection fraction is 28% by biplane method. There is severe global hypokinesis. Venous The inferior vena cava is normal in size and collapses greater than 50% with inspiration. Prior Study Comparison Changes noted compared to prior study dated: 12/14/2023. LVEF lower than previously reported. Measurements 2D Linear Measurements IVSd: 0.85 0.6-0.9/0.6-1.0 cm LVIDd: 5.79 3.9-5.3/4.2-5.9 cm LVIDd Index: 2.81 2.4-3.2/2.2-3.1 cm/m2 LVIDs: 4.62 2.0-3.6 cm LVPWd: 0.95 0.7-1.1 cm LV Mass: 251.79 67-162/88-224 g LV Mass Index: 122.23 43-95/49-115 g/m2 LVOT Diam: 2.50 3.0+(-)1.3 cm 2D Systolic Function EF 4C: 27.10 >55% EF 2C: 26.70 >55% EF BiP: 28.20 >55% LVOT LVOT Pk Ramón: 0.67 LVOT Mn Ramón: 0.48 LVOT VTI: 0.12 LVOT Pk Grad: 2.00 LVOT Mn Grad: 1.00 LVOT Diam: 2.50 LVOT Area: 4.91 Tricuspid Valve RA Press: 3.00 Updated in Other Vendor System with Status of Final Oleg Ritter MD electronically signed on 05/12/2024 8:28:46 AM with status of Final
== END ==
LOC: HO.CARD 07:54
PROVIDERS: PCP Physician Assistant; Visit Provider Nurse Practitioner
DX: I50.20 Unspecified systolic (congestive) heart failure (principal)
CPT/HCPCS: 93308; Q9957

== ENCOUNTER → 2024-05-10 08:03 | Outpatient (BNV) | payer OTHER, SELFPAY | PROVIDERS: PCP Physician Assistant; Visit Provider Internal Medicine | DX: I50.20 Unspecified systolic (congestive) heart failure (principal); R93.1 Abnormal findings on diagnostic imaging of heart and coronary circulation | CPT/HCPCS: 93308 ==

== ENCOUNTER 2024-06-15 13:47 | Outpatient (AMB) | payer OTHER, SELFPAY ==
[2024-06-15 13:51] VITALS: BP 118/60; PULSE 98; BMI 28.5
--- NOTE | 2024-06-15 13:51 | MHC.OFFVIS ---
Vital Signs 06/15/24 13:51 Height 5 ft 10 in Weight 198 lb 6.656 oz BMI 28.5 BP 118/60 Blood Pressure Location Lt brachial Position Sitting Pulse 98 Pulse Source Pulse Oximeter Intake Visit Reasons: 3 mth f/up Allergies metformin Adverse Reaction (Intermediate, Verified 05/09/24 09:37) GI side effects Medication List - Last Reconciled 06/15/24 by Oleg Ritter MD blood-glucose meter,continuous (FreeStyle Elaine 3 [place]) As directed blood-glucose sensor (FreeStyle Elaine 3 Sensor device) As directed carvedilol 3.125 mg PO BID flash glucose sensor (FreeStyle Elaine 2 Sensor kit) As directed furosemide 20 mg PO DAILY insulin glargine (Lantus Solostar U-100 Insulin) 32 units (0.32 mL) subcut BEDTIME 90 days insulin lispro 10 units subcut TID midodrine 5 mg PO BID 30 days multivitamin 1 tab PO DAILY pen needle, diabetic (BD Lula 2nd Gen Pen Needle) 4 times per day HPI Comments Details: Mark returns for follow-up regarding congestive heart failure. Suspect to have nonischemic cardiomyopathy, possibly related to alcohol excess. Previously, stress testing was unremarkable. Otherwise, longstanding diabetes. No known coronary disease myocardial infarction. He has had hospitalization for diuresis as well as over diuresis. With shortness of breath, seems mostly controlled. However, he does get dizzy every so often which could be related to orthostatic hypotension. He is on midodrine. With regard to heart failure therapy only on carvedilol as he otherwise gets really hypotensive. With regard to alcohol excess, has not done that in a few months. [facility] Medical History (Updated 06/15/24 @ 14:48 by Oleg Ritter MD) Chronic combined systolic and diastolic CHF (congestive heart failure) Palpitation JOLIE (generalized anxiety disorder) MDD (major depressive disorder), recurrent episode, moderate Diabetic foot ulcer Cardiomyopathy Alcohol use disorder in remission HTN (hypertension) DMII (diabetes mellitus, type 2) CHF (congestive heart failure) Small bowel obstruction Hx of intestinal obstruction Foot callus Erectile disorder due to medical condition in male patient Knee pain, right Surgical History Hx of esophagogastroduodenoscopy History of appendectomy History of hernia surgery Family History Mother Diabetes High blood pressure Social History Household Members: Spouse, Family and Children Household Members Other:: three kids and Housing: House Do you presently have visiting nurse or other home services: No Alcohol intake: current Alcohol intake frequency: former alcohol drinker Patient Tobacco Use Status: Never used Tobacco e-Cigarette/Vaping Use: Never Used Second Hand Smoke Exposure: No Advance Directives Date on File: 12/16/23 service: No Current occupational status: employed Current occupation: right handed Cognitive needs: No Hearing needs: No Vision needs: No Review of Systems Const Denies weakness ENT Denies dizziness Card Denies chest pain, Denies chest pain with activity, Denies syncope, Denies rapid heart rate, Denies pedal edema, Denies edema, Denies leg edema, Denies lightheadedness, Denies palpitations, Denies dyspnea, Denies dyspnea on exertion and Denies orthopnea Resp Denies cough, Denies dyspnea and Denies dyspnea on exertion GI Denies hematochezia and Denies change in stool character Musc Denies abnormal gait, Denies muscle cramps, Denies muscle weakness, Denies numbness, Denies radiating pain into limb and Denies tingling Neuro Denies abnormal gait, Denies dizziness, Denies syncope, Denies numbness, Denies tingling and Denies weakness Endo Denies palpitations Physical Exam Vital Signs: Last Vital Signs Pulse 98 06/15/24 13:51 BP 118/60 06/15/24 13:51 BMI result Body Mass Index 28.5 Const General: comfortable and no acute distress Orientation/consciousness: patient oriented x3 HEENT Other: Unremarkable Head: Yes normal to inspection Neck Neck: Yes normal visual inspection Chest Chest palpation & inspection: normal inspection of the chest Resp Auscultation: clear to auscultation bilaterally Cardio Palpation: normal PMI Heart sounds: S1 normal heart sound present, S2 normal heart sound present, no gallops, no murmurs and no rubs GI Palpation (GI): Soft to palpation Back/Spine/Pelvis Other: unremarkable Skin General skin exam: no rashes or lesions noted Neuro General: patient oriented x3 Extrem General: Yes normal to inspection Psych Mental Status: mental status grossly normal Assessment & Plan Assessment & Plan (1) Chronic combined systolic and diastolic CHF (congestive heart failure): Code(s): I50.42 - Chronic combined systolic (congestive) and diastolic (congestive) heart failure Category: Medical (2) Alcohol use disorder in remission: Code(s): F10.91 - Alcohol use, unspecified, in remission Category: Medical (3) DMII (diabetes mellitus, type 2): Comment: A1c 11.7% (08/2023) , 8.1% on 12/2023 Code(s): E11.9 - Type 2 diabetes mellitus without complications Category: Medical Qualifiers: Diabetes mellitus complication status: with hyperglycemia Diabetes mellitus intermediate accountant insulin use: without intermediate accountant use Qualified Code(s): E11.65 - Type 2 diabetes mellitus with hyperglycemia Plan Cardiac studies reviewed. Echocardiogram from 11/2023-LVEF 35-40%. Moderate diastolic dysfunction. No significant valvular findings. Repeat echocardiogram from 04/2024-LVEF 28%. Myocardial perfusion imaging study from 02/2024-probably normal perfusion. Gated LVEF was 25% during stress and 33% during rest. Holter 03/2024-underlying rhythm is sinus with an average rate of 103/Min. Frequent sinus tachycardia. Difficult issue with heart failure medications due to concurrent hypotension. Currently, only on carvedilol. Low-dose diuretics. He is no longer on Entresto, Jardiance or spironolactone. Unfortunately, we cannot add them either. We will recheck echocardiogram in about 3 months or so. If LVEF is still low, then consider defibrillator. We discussed about that today. As he is refraining from alcohol, hoping that it will improve. Possibly also get cardiac MRI based on recovery of LVEF. With regard to the hypotension, could be autonomic insufficiency as he also has some tachycardia. We can go up on the midodrine dose. We will follow up in about 3 months or so. He will contact us in the interim with any concerns. Orders: Orders CA echo transthoracic complete 3 Months I50.41 - Acute combined systolic (congestive) and diastolic (congestive) heart failure Medications: New midodrine do not give last dose of day after 6PM or within 4 hrs of bedtime 5 mg PO TID 270 tabs 3RF 90 days Discontinued midodrine do not give last dose of day after 5PM Discontinued Reason: Doctor's Order 5 mg PO BID 30 days 60 tabs 0RF R42 - Dizziness and giddiness Coding Level of Care Code Est Pt Level 4 (92500) Diagnoses Chronic combined systolic and diastolic CHF (congestive heart failure) I50.42 Alcohol use disorder in remission F10.91 Type 2 diabetes mellitus with hyperglycemia, without long-term current use of insulin E11.65 Diabetes mellitus complication status: with hyperglycemia Diabetes mellitus chcf insulin use: without chcf use
== END 2024-06-15 14:23 | disposition home or self-care (01) ==
PROVIDERS: PCP Physician Assistant; Visit Provider Internal Medicine
DX: I50.42 Chronic combined systolic (congestive) and diastolic (congestive) heart failure (principal); F10.91 Alcohol use, unspecified, in remission; E11.65 Type 2 diabetes mellitus with hyperglycemia
CPT/HCPCS: 99214

== ENCOUNTER → 2024-06-15 13:47 | Outpatient (BNVA) | payer OTHER, SELFPAY | PROVIDERS: PCP Physician Assistant; Visit Provider Internal Medicine ==

== ENCOUNTER 2024-06-16 10:25 | Outpatient (RCR) | payer OTHER, SELFPAY | END 2024-07-07 13:36 | disposition home or self-care (01) | LOC: HO.WCC 10:25 | PROVIDERS: PCP Physician Assistant; Visit Provider Colon & Rectal Surgery | DX: E10.621 Type 1 diabetes mellitus with foot ulcer (principal); L97.512 Non-pressure chronic ulcer of other part of right foot with fat layer exposed; E10.40 Type 1 diabetes mellitus with diabetic neuropathy, unspecified; I95.1 Orthostatic hypotension; Z87.891 Personal history of nicotine dependence | CPT/HCPCS: 11042; 99212 ==

== ENCOUNTER 2024-06-20 09:27 | Outpatient (AMB) | payer OTHER, SELFPAY ==
--- NOTE | 2024-06-20 09:43 | MHC.PC.OV ---
Vital Signs 06/20/24 09:44 Height 5 ft 10 in Weight 198 lb 4 oz BMI 28.4 BP 94/70 Blood Pressure Location Lt brachial Position Sitting Pulse 110 H Pulse Source Pulse Oximeter Pulse Oximetry (%) 98 Oxygen Delivery Method Room Air Intake Visit Reasons: f/u orthostasis Allergies metformin Adverse Reaction (Intermediate, Verified 05/09/24 09:37) GI side effects Medication List - Last Reconciled 06/20/24 by Tomy Cannon PA-C blood-glucose meter,continuous (FreeStyle Elaine 3 [place]) As directed blood-glucose sensor (FreeStyle Elaine 3 Sensor device) As directed carvedilol 3.125 mg PO BID flash glucose sensor (FreeStyle Elaine 2 Sensor kit) As directed furosemide 20 mg PO DAILY insulin glargine (Lantus Solostar U-100 Insulin) 32 units (0.32 mL) subcut BEDTIME 90 days insulin lispro 10 units (0.1 mL) subcut TID 30 days midodrine 5 mg PO TID 90 days multivitamin 1 tab PO DAILY pen needle, diabetic (BD Lula 2nd Gen Pen Needle) 4 times per day Tobacco use date assessed: 09/20/23 Dental Screening Dental Screen Date: 09/20/23 HPI f/u orthostasis HPI Details Patient is a 44-year-old male here today for a follow-up visit. Patient has a past medical history significant type 2 diabetes, anxiety, Congestive heart failure, GERD. Concern--> reports he continues to have a intermittent cough that comes in episodes. He reports this has been evident since the spring ever since he has been diagnosed with his heart condition. Of note did have a pulmonary effusion while he is hospitalized for his acute heart failure. He reports using cough medication icet-wev-jigenis though has not been effective. . Congestive heart failure: Now followed by [facility]. Recently got stress test without any notable EKG changes. Nuclear stress did show low EF. Did have trouble with his cardiac meds including presyncopal episodes. Did stop all of his cardiac medications at 1 time. He has restarted carvedilol 3 mg b.i.d. and does use furosemide 20 mg on an as needed basis for lower extremity edema. We have started midodrine for his low blood pressures to which Cardiology increased to 5 mg t.i.d.. Believe that he may have autonomic insufficiency. Cardiology considering defibrillator if LV remains low and further workup with a cardiac MRI Unfortunately continues to dizziness upon standing or change in his body position. Today in office does seem to have pre low blood pressure. He has been on midodrine 5 mg b.i.d currently. His circuit board inspector increased his midodrine to 5 mg t.i.d.. Right foot ulcer: Followed by Podiatry at [place] and reports his right foot ulcer has completely healed. He reports he is getting some treatment and other foot calluses by his movie shot camera operator. . [facility] Medical History Chronic combined systolic and diastolic CHF (congestive heart failure) Palpitation JOLIE (generalized anxiety disorder) MDD (major depressive disorder), recurrent episode, moderate Diabetic foot ulcer Cardiomyopathy Alcohol use disorder in remission HTN (hypertension) DMII (diabetes mellitus, type 2) CHF (congestive heart failure) Small bowel obstruction Hx of intestinal obstruction Foot callus Erectile disorder due to medical condition in male patient Knee pain, right Surgical History Hx of esophagogastroduodenoscopy History of appendectomy History of hernia surgery Family History Mother Diabetes High blood pressure Social History Household Members: Spouse, Family and Children Household Members Other:: three kids and Housing: House Do you presently have visiting nurse or other home services: No Alcohol intake: current Alcohol intake frequency: former alcohol drinker Patient Tobacco Use Status: Never used Tobacco e-Cigarette/Vaping Use: Never Used Second Hand Smoke Exposure: No Advance Directives Date on File: 12/16/23 service: No Current occupational status: employed Current occupation: right handed Cognitive needs: No Hearing needs: No Vision needs: No Questionnaire Thrive Questionnaire Date Thrive assessed: 02/08/24 Are you currently unemployed and looking for a job?: I choose not to answer this question JOLIE-7 AMB Questionnaire JOLIE-7 Date JOLIE - 7 assessed: 09/20/23 Source: Developed by Drs. Josh Nava, Shelby Peres, Manuel Lloyd and colleagues, with an educational zaid from [employer]. Review of Systems Const Denies headache(s) and Reports malaise Eyes Denies loss of vision ENT Denies vertigo, Reports dizziness, Denies headache(s) and Denies sore throat Card Denies chest pain, Denies leg edema and Denies lightheadedness Resp Denies cough, Denies hemoptysis and Denies wheezing GI Denies abdominal pain, Denies melena, Denies constipation, Denies diarrhea and Denies vomiting Denies dysuria, Denies urinary frequency and Denies urinary urgency Musc Denies arthralgias, Denies joint swelling, Denies numbness and Denies tingling Neuro Denies Abnormal speech present, Denies behavioral changes, Denies vertigo, Reports dizziness, Denies headache(s), Denies loss of vision, Denies memory loss, Denies numbness and Denies tingling Psych Denies anxiety, Denies behavioral changes, Denies depression, Denies memory loss and Denies panic attacks Srinivas/Lymph Denies easy bleeding and Denies easy bruising Aller/Immun Denies wheezing Physical exam (Primary Care) Vital Signs: Last Vital Signs Pulse 110 H 06/20/24 09:44 BP 94/70 06/20/24 09:44 Pulse Ox 98 06/20/24 09:44 Oxygen Delivery Method Room Air 06/20/24 09:44 BMI result Body Mass Index 28.4 Tobacco/Smoking Status: Tobacco use Status Tobacco use date assessed 09/20/23 06/20/24 09:45 Patient Tobacco Use Status Never used Tobacco 06/20/24 09:45 e-Cigarette/Vaping Use Never Used 06/20/24 09:45 Thrive Assessment: Date of Thrive Assessment Date Thrive assessed 02/08/24 06/20/24 09:45 Const General: healthy appearing, no acute distress, alert and awake Nutritional Appearance: well nourished Orientation/consciousness: oriented to person, oriented to place and oriented to time HENMT Ears: TM's normal bilaterally General nose exam: Normal nasal mucous membranes and turbinates present Eyes Conjunctivae: conjunctivae normal Sclerae: sclerae normal Pupils: Equal, round and reactive pupils present Neck Neck: Yes no lymphadenopathy and Yes no JVD Thyroid: Thyroid normal Carotids: no bruits Resp Effort & Inspection: normal respiratory effort and not tachypneic Auscultation: no crackles, no rales, no rhonchi and no wheezes Cardio Rate: regular rate Rhythm: regular rhythm Heart sounds: no murmurs and normal S1 and S2 GI Palpation (GI): Soft to palpation, nontender, no hepatomegaly and no splenomegaly Auscultation: normal bowel sounds Skin General skin exam: no rashes or lesions noted and dry skin Neuro General: oriented to person, oriented to place and oriented to time Cranial nerves: Yes Equal, round and reactive pupils present Speech: No Abnormal speech present Gait exam (Neuro): Normal gait present Motor exam (neuro): no tremor noted Extrem Right upper extremity: full ROM Left upper extremity: full ROM Right lower extremity: full ROM; no edema Left lower extremity: full ROM; no edema Psych Mental Status: mental status grossly normal Speech and movement: Normal speech and movement present Affect: normal affect Attitude: cooperative Thought process: Normal thought process present Office Procedures Flu Questionnaire Does the patient have a severe egg allergy?: No Does the patient have severe life threatening allergies?: No Does the patient have a fever or illness today?: No Has the patient ever had Guillain-Denver Syndrome?: No Has the patient ever had any past reaction to a flu shot?: No Immunizations Fluarix Triv [id number] (PF) 45 mcg (15 mcg x 3)/0.5 mL IM syringe Performing Provider: Tomy Cannon PA-C [facility] Administered by: MALIHA Spence on 06/20/24 09:46 Dose Route Admin Location Dispensed Lot Number Expiration Date [facility] [place]NOTE 2] Doughnut Glazier 0.5 mL IM Left Deltoid 0.5 mL [id number] 02/12/25 [id number] [employer] VIS Given Date VIS Provided VIS Publication Date 06/20/24 Single Vaccine 21 Eligibility Eligibility Date Funding Source Not [facility] Eligible 06/20/24 Private Coding Level of Care Code Est Pt Level 4 (25058) Diagnoses Chronic combined systolic and diastolic CHF (congestive heart failure) I50.42 Chronic cough R05.3 Cough type: chronic Orthostatic dizziness R42 Assessment & Plan Assessment & Plan (1) Chronic combined systolic and diastolic CHF (congestive heart failure): Code(s): I50.42 - Chronic combined systolic (congestive) and diastolic (congestive) heart failure Category: Medical Plan: Continues to follow cardiology. Does have systolic heart failure with ejection fraction of 28%. Will be getting a cardiac MRI and will be considered for implantable defibrillator. (2) Cough: Code(s): R05.9 - Cough, unspecified Category: Medical Qualifiers: Cough type: chronic Qualified Code(s): R05.3 - Chronic cough Plan: Patient reports having a intermittent pretty severe cough. He reports this has been going on since spring since he was diagnosed with his heart failure.. At the time of his diagnosis he did have a pulmonary effusion Will send for chest x-ray to evaluate for any recurrent effusion. Will supply patient with an albuterol inhaler to use during coughing fits (3) Orthostatic dizziness: Code(s): R42 - Dizziness and giddiness Category: Medical Plan: As per HPI, his midodrine was increased to 5 mg t.i.d. for orthostasis. We hope this will help him with his low blood pressures. Will continue to follow renal function.. Orders: Orders Influenza [id number] Immunization 06/20/24 Z23 - Encounter for immunization XR chest 2V 06/20/24 R05.9 - Cough, unspecified Medications: New albuterol sulfate 90 mcg/actuation 1 inh inhalation QID PRN 8.5 grams 0RF shortness of breath or wheezing 30 days R05.9 - Cough, unspecified blood-glucose sensor (FreeStyle Elaine 3 Sensor device) As directed 2 ea 6RF E11.65 - Type 2 diabetes mellitus with hyperglycemia Refilled insulin glargine (Lantus Solostar U-100 Insulin) 32 units (0.32 mL) subcut BEDTIME 28.8 mL 3RF 90 days E11.65 - Type 2 diabetes mellitus with hyperglycemia insulin lispro Breakfast, Lunch and Dinner 10 units (0.1 mL) subcut TID 15 mL 3RF 30 days E11.621 - Type 2 diabetes mellitus with foot ulcer, L97.522 - Non-pressure chronic ulcer of other part of left foot with fat layer exposed Discontinued flash glucose sensor (FreeStyle Elaine 2 Sensor kit) Discontinued Reason: Doctor's Order As directed 1 ea 6RF E11.65 - Type 2 diabetes mellitus with hyperglycemia
[2024-06-20 09:44] VITALS: BP 94/70; PULSE 110; O2SAT 98; BMI 28.4
== END 2024-06-20 10:20 | disposition home or self-care (01) ==
LOC: HO.HMCH 09:27
PROVIDERS: PCP Physician Assistant; Visit Provider Physician Assistant
DX: I50.42 Chronic combined systolic (congestive) and diastolic (congestive) heart failure (principal); R05.3 Chronic cough; R42 Dizziness and giddiness

== ENCOUNTER 2024-06-20 09:27 | Outpatient (REF) | payer OTHER, SELFPAY ==
[2024-06-20 11:05] LABS: Hematocrit 39.8 % (42.0-52.0); Hemoglobin 13.7 g/dl (14.0-18.0); Mean Corpuscular HGB Conc 34.4 g/dl (31.0-36.0); Mean Corpuscular Hemoglobin 28.1 pg (27.0-33.0); Mean Corpuscular Volume 81.6 fL (80.0-98.0); Mean Platelet Volume 10.6 fL (9.4-12.4); Platelet Count 192 X10*3/uL (160-400); Red Blood Count 4.88 X10*6/uL (4.60-5.80); White Blood Count 7.7 X10*3/uL (4.8-10.8)
[2024-06-20 11:31] LABS: Anion Gap 12 (12-20); Blood Urea Nitrogen 27 mg/dL (9-16); Calcium 9.8 mg/dL (8.4-10.2); Carbon Dioxide 28 mmol/L (22-29); Chloride 107 mmol/L (96-108); Estimated Glomerular Filt Rate 53; Glucose Random 150 mg/dL (60-115); Potassium 4.3 mmol/L (3.3-5.1); Sodium 143 mmol/L (135-145)
== END 2024-06-20 09:28 | disposition home or self-care (01) ==
LOC: HO.XRAY 09:27
PROVIDERS: PCP Physician Assistant; Visit Provider Physician Assistant
DX: R42 Dizziness and giddiness (principal); L97.512 Non-pressure chronic ulcer of other part of right foot with fat layer exposed; E11.621 Type 2 diabetes mellitus with foot ulcer; L97.411 Non-pressure chronic ulcer of right heel and midfoot limited to breakdown of skin; I50.42 Chronic combined systolic (congestive) and diastolic (congestive) heart failure; E11.65 Type 2 diabetes mellitus with hyperglycemia; R05.3 Chronic cough; Z23 Encounter for immunization
CPT/HCPCS: 36415; 71046; 73620; 80048; 85027; 90471; 90656

== ENCOUNTER 2024-06-30 06:19 | Outpatient (REF) | payer OTHER, SELFPAY ==
[2024-06-30 07:52] LABS: Anion Gap 11 (12-20); Blood Urea Nitrogen 15 mg/dL (9-16); Calcium 9.3 mg/dL (8.4-10.2); Carbon Dioxide 29 mmol/L (22-29); Chloride 104 mmol/L (96-108); Estimated Glomerular Filt Rate > 60; Glucose Random 216 mg/dL (60-115); Sodium 140 mmol/L (135-145)
== END 2024-06-30 06:20 | disposition home or self-care (01) ==
LOC: HO.LAB 06:19
PROVIDERS: PCP Physician Assistant; Visit Provider Physician Assistant
DX: N17.9 Acute kidney failure, unspecified (principal)
CPT/HCPCS: 36415; 80048

== ENCOUNTER 2024-08-22 10:01 | Inpatient (IN) | payer OTHER, SELFPAY ==
[2024-08-22] VITALS (8 sets, daily range): BP systolic 135–173; BP diastolic 10–114; PULSE 99–107; RESP 16–18; TEMP 36.4–36.9; O2SAT 92–97; BMI 31.1
--- NOTE | 2024-08-22 | ECG_ITS ---
Test Reason : chest pain Blood Pressure : */* mmHG Vent. Rate : 101 BPM Atrial Rate : 101 BPM P-R Int : 166 ms QRS Dur : 90 ms QT Int : 356 ms P-R-T Axes : 35 -4 56 degrees QTcB Int : 461 ms Sinus tachycardia Otherwise normal ECG When compared with ECG of 22-Aug-2024 09:23, No significant changes seen Referred By: Generic ED Physician Electronically Signed By: ALICJA CAMPBELL
--- NOTE | ~2024-08-22 | XR_ITS ---
EXAMINATION: XR CHEST CLINICAL INFORMATION: sob COMPARISON: None available. TECHNIQUE: 2 views of the chest were obtained. FINDINGS: The lungs are hypoexpanded but clear of acute pneumonic process. The heart size and pulmonary vascularity is normal. No gross bony abnormality seen. XR/XR chest 2V IMPRESSION: Unremarkable chest examination. Electronically signed by: Maynor Barron MD 08/22/2024 10:54 AM [facility]
--- NOTE | ~2024-08-22 | XR_ITS ---
EXAMINATION: XR CHEST CLINICAL INFORMATION: chest pain COMPARISON: X-ray dated August 22, 2024 TECHNIQUE: Frontal view of the chest was obtained. FINDINGS: Poor inspiration. No consolidation, pleural effusion or pneumothorax. Cardiomediastinal silhouette is normal in size. Multilevel thoracic spondylosis. XR/XR chest 1V IMPRESSION: No acute airspace disease. Electronically signed by: Vernon Andino MD 08/28/2024 02:01 PM [facility]
[2024-08-22 11:12] LABS: MANUAL DIFF FLAG NO
[2024-08-22 11:14] LABS: Basophils Percent Auto 0.5 % (0-2); Eosinophils Absolute Auto 0.2 X10*3/uL (0.0-0.4); Eosinophils Percent Auto 2.7 % (0-4); Hematocrit 35.3 % (42.0-52.0); Hemoglobin 11.8 g/dl (14.0-18.0); Imm Gran Abs Auto 0.03 X10*3/uL (0.00-0.03); Imm Gran Pct Auto 0.4 % (0.0-0.4); Lymphocytes Absolute Auto 1.5 X10*3/uL (1.2-4.9); Lymphocytes Percent Auto 18.9 % (20-40); Mean Corpuscular HGB Conc 33.4 g/dl (31.0-36.0); Mean Corpuscular Hemoglobin 27.3 pg (27.0-33.0); Mean Corpuscular Volume 81.5 fL (80.0-98.0); Mean Platelet Volume 10.5 fL (9.4-12.4); Monocytes Absolute Auto 0.6 X10*3/uL (0.1-1.2); Monocytes Percent Auto 7.1 % (2-11); Neutrophils Absolute Auto 5.5 x10*3/uL (2.0-8.3); Neutrophils Percent Auto 70.4 % (45-73); Platelet Count 143 X10*3/uL (160-400); Red Blood Count 4.33 X10*6/uL (4.60-5.80); Red Cell Distribution Width 14.8 % (11.0-16.0); White Blood Count 7.8 X10*3/uL (4.8-10.8)
[2024-08-22 11:36] LABS: B Type Natriuretic Peptide 641 pg/mL (<100)
[2024-08-22 11:37] LABS: Alanine Aminotransferase 54 U/L (0-40); Albumin Level 2.8 g/dL (3.5-5.0); Anion Gap 9 (12-20); Aspartate Amino Transferase 44 U/L (5-37); Bilirubin Direct 0.4 mg/dL (0.0-0.5); Bilirubin Total 0.9 mg/dL (0.0-1.0); Blood Urea Nitrogen 17 mg/dL (9-16); Calcium 8.5 mg/dL (8.4-10.2); Carbon Dioxide 27 mmol/L (22-29); Chloride 108 mmol/L (96-108); Creatinine Clr Calc Pharmacy 105.7; Estimated Glomerular Filt Rate > 60; Glucose Random 236 mg/dL (60-115); Magnesium 1.7 mg/dL (1.6-2.6); Potassium 3.9 mmol/L (3.3-5.1); Sodium 140 mmol/L (135-145); Total Protein 6.8 g/dL (6.5-8.0)
[2024-08-22 11:39] LABS: Troponin-I High Sensitivity 10.7 ng/L (<3.5-35.0)
[2024-08-22 11:52] LABS: Influenza A PCR NEGATIVE (Negative); Influenza B PCR NEGATIVE (Negative); Resp Syncy Virus RNA Qual PCR NEGATIVE (Negative); SARS COV2 PCR INHOUSE NEGATIVE (Negative)
[2024-08-22 12:06] LABS: Alkaline Phosphatase 96 U/L (39-117)
--- NOTE | 2024-08-22 13:39 | ED.CHESTPAIN ---
HPI - Chest Pain General Chief Complaint: Chest Pain Stated Complaint: Chest pain, feet swelling Time Seen by Provider: 08/22/24 13:39 Source: patient Mode of arrival: ambulatory Limitations: no limitations History of Present Illness ED Provider: Dr. Fabian Rivers HPI narrative: 44-year-old male with a history of diabetes mellitus, cardiomyopathy with EF of 20% on 05/10/2024 who presents emergency department for evaluation of 4 days of weakness, fatigue, intermittent chest pressure and increased swelling in his lower extremities. Patient states that 4 days prior he was walking at [employer] for proximally 30 minutes. He states that while he was walking and had some intermittent chest pressure which would last minutes he states he did feel tired and fatigued. He states that the next day he then developed swelling in his lower extremities which is gotten progressively worse. He states he continues to have intermittent chest pressure lasting minutes, several times a day. The patient states that he had COVID-19 three months ago and since that time he was had a persistent cough which is nonproductive. He does feel short of breath at rest, he was orthopnea and he has dyspnea on exertion. Denied fever but did have chills. He denied rhinorrhea or sore throat. He denied nausea, vomiting or diarrhea. Patient states that he had a callus on his right foot near the 5th toe. Patient's saw chainman proximally 2 months ago and the callus was scraped off. Patient states that since he has had increased swelling in his legs and feet he noted increased pressure from his shoes and a callus came back. He states that a he noticed increased redness and warmth to his right foot and ankle. Related Data Home Medications ?Medication ?Instructions ?Recorded ?Confirmed multivitamin 1 tab PO DAILY 02/16/24 06/20/24 carvedilol 3.125 mg tablet 3.125 mg PO BID 05/09/24 06/20/24 furosemide 20 mg tablet 20 mg PO DAILY 05/09/24 06/20/24 Previous Rx's ?Medication ?Instructions ?Recorded blood-glucose meter,continuous #1 ea 01/04/24 (FreeStyle Elaine 3 [place]) pen needle, diabetic 32 gauge x #1,200 ea 03/13/24 (BD Lula 2nd Gen Pen Needle) blood-glucose sensor (FreeStyle #1 ea 04/10/24 Elaine 3 Sensor device) blood-glucose sensor (FreeStyle #2 ea 06/20/24 Elaine 3 Sensor device) insulin glargine 100 unit/mL (3 32 unit (0.32 mL) subcut BEDTIME 06/20/24 mL) subcutaneous pen (Lantus 90 days #28.8 mL Solostar U-100 Insulin) insulin lispro 100 unit/mL 10 unit (0.1 mL) subcut TID 30 06/20/24 subcutaneous pen days #15 mL albuterol sulfate 90 mcg/actuation 1 inh inhalation QID PRN shortness 07/14/24 aerosol inhaler of breath or wheezing 30 days #8.5 grams midodrine 5 mg tablet 5 mg PO TID 90 days #270 tabs 08/21/24 Allergies Allergy/AdvReac Type Severity Reaction Status Date / Time metformin AdvReac Intermediate GI side Verified 08/22/24 10:21 effects Review of Systems Review of Systems: Yes all other systems are reviewed and are negative [facility] Past Medical History Medical History Chronic combined systolic and diastolic CHF (congestive heart failure) Palpitation JOLIE (generalized anxiety disorder) MDD (major depressive disorder), recurrent episode, moderate Diabetic foot ulcer Cardiomyopathy Alcohol use disorder in remission HTN (hypertension) DMII (diabetes mellitus, type 2) CHF (congestive heart failure) Small bowel obstruction Hx of intestinal obstruction Foot callus Erectile disorder due to medical condition in male patient Knee pain, right Surgical History Hx of esophagogastroduodenoscopy History of appendectomy History of hernia surgery Family History Family History Mother Diabetes High blood pressure Social History Social History Household Members: Spouse, Family and Children Household Members Other:: three kids and Housing: House Do you presently have visiting nurse or other home services: No Alcohol intake: never Patient Tobacco Use Status: Never used Tobacco Smoked in Last 30 Days: No e-Cigarette/Vaping Use: Never Used Second Hand Smoke Exposure: No Use of substances other than those prescribed or required for medical reasons: No Advance Directives: Yes Advance Directives on File: Yes Advance Directives Date on File: 12/16/23 service: No Current occupational status: employed Current occupation: right handed Cognitive needs: No Hearing needs: No Vision needs: No Physical Exam Vital Signs: Vital Signs: Last Vital Signs Temp 98.1 F 08/22/24 13:44 Pulse 101 H 08/22/24 13:44 Resp 16 08/22/24 13:44 BP 166/108 H 08/22/24 15:03 Pulse Ox 96 08/22/24 13:44 O2 Del Method Room Air 08/22/24 13:44 BMI result Body Mass Index 31.1 Vital signs revealed an elevated heart rate of 107 and an elevated blood pressure of 173/114 Exam: General: Awake, alert in no distress Head: Normocephalic, atraumatic EENT: PERRL, Lids normal, sclera normal, conjunctiva normal, nose normal , ears normal, throat without erythema or exudates Neck: Supple, no adenopathy Lung: breath sounds symmetric, no wheezing, rales or rhonchi Chest: symmetric movement, nontender Heart: Tachycardia with a regular rhythm, 2/6 systolic murmur best heard at the left lower sternal border normal S1, S2 no murmurs or rubs Abdomen: soft, non-tender, nondistended, normal bowel sounds Back: no vertebral tenderness, no CVAT Extremities: 1+ pitting edema symmetric, patient has increased erythema and increased warmth to the lateral aspect of the right foot with a large callus to the lateral aspect of the patient's toe. Neuro: Awake, alert, oriented, normal speech, cranial nerves intact, moves all extremities symmetrically Psych: Pleasant, cooperative Medications Administered Discontinued Medications Generic Name Dose Route Start Last Admin Trade Name Freq PRN Reason Stop Dose Admin Furosemide 60 mg 08/22/24 14:53 08/22/24 15:03 Furosemide 100 Mg/10 Ml Vial IVPUSH 08/22/24 14:54 60 mg ONCE ONE Administration Protocol Medical Decision Making Medical Decision Making MDM Narrative: 44-year-old male with a history of diabetes cardiomyopathy (EF 28% on 05/10/2024) off diuretics times 3 months secondary to hypotension presents emergency department for fatigue shortness of breath, dyspnea on exertion and swelling in his lower extremities x4 days. Patient had intermittent chest pressure lasting minutes over the past 4 days but no prolonged episodes of chest pain. Patient also noted increased redness and swelling to his right foot which started today. Patient had a callus to the right foot x2 months which is gotten worse since he was had increased edema to his feet. Vital signs revealed an elevated blood pressure of 173/114 and elevated heart rate of 107. Exam did reveal 1+ pitting edema in the lower extremities. Patient has signs of cellulitis to the right foot with a callus/diabetic foot ulcer 15:30 Differential diagnosis: ?Includes but is not limited to myocardial infarction, myocardial ischemia, fluid overload, anemia, liver failure, electrolyte abnormalities, right foot cellulitis, osteomyelitis. Course: 15:30 My independent interpretation patient's laboratory evaluation is as follows: BNP elevated 641. Normocytic anemia with an H&H of 11.8 and 35.3-chronic. Low platelet count a 613556. BUN 17 with a normal creatinine of 1.07. Elevated AST and ALT 44 and 54. First troponin 10.7 repeat pending. Chest x-ray he was negative for congestive heart failure. EKG consistent with sinus tachycardia otherwise unremarkable I did discuss diuresis consultative sales associate, Dr. Miller and he agreed with IV Lasix I ordered Zosyn 4.5 g IV. Patient was fluid overload and was not given any fluid at this time since we are trying to diurese the patient. I did discuss admission over tiger text with the covering hospitalist, Dr. Poli Gray and the patient was hospitalist service Admission/Observation Consideration of admission/observation: Escalation of care including admission/observation considered (Yes) Consult Healthcare Provider Management of the patient was discussed with: Cremator (Hospitalist, Dr. Gray and consultative sales associate, Dr. Ritter) Lab Data [facility] Lab Attestation statement: I reviewed the patient's lab results. 08/22/24 11:06 08/22/24 11:06 Labs: Lab Results 08/22/24 Range/Units 11:06 WBC 7.8 (4.8-10.8) X10*3/uL RBC 4.33 L (4.60-5.80) X10*6/uL Hgb 11.8 L (14.0-18.0) g/dl Hct 35.3 L (42.0-52.0) % MCV 81.5 (80.0-98.0) fL MCH 27.3 (27.0-33.0) pg MCHC 33.4 (31.0-36.0) g/dl RDW 14.8 (11.0-16.0) % Plt Count 143 L D (160-400) X10*3/uL MPV 10.5 (9.4-12.4) fL Immature Gran % (Auto) 0.4 (0.0-0.4) % Neut % (Auto) 70.4 (45-73) % Lymph % (Auto) 18.9 L (20-40) % King % (Auto) 7.1 (2-11) % Eos % (Auto) 2.7 (0-4) % Baso % (Auto) 0.5 (0-2) % Lymph # (Auto) 1.5 (1.2-4.9) X10*3/uL King # (Auto) 0.6 (0.1-1.2) X10*3/uL Eos # (Auto) 0.2 (0.0-0.4) X10*3/uL Baso # (Auto) 0.0 (0.0-0.2) X10*3/uL Abs Immat Gran (auto) 0.03 (0.00-0.03) X10*3/uL Absolute Neuts (auto) 5.5 (2.0-8.3) x10*3/uL Absolute Nucleated RBC 0.000 (0.0-0.012) X10*3/uL Nucleated RBC % (auto) 0.0 (0.0-0.2) /100WBC Sodium 140 (135-145) mmol/L Potassium 3.9 (3.3-5.1) mmol/L Chloride 108 (96-108) mmol/L Carbon Dioxide 27 (22-29) mmol/L Anion Gap 9 L (12-20) BUN 17 H (9-16) mg/dL Creatinine 1.07 (0.5-1.4) mg/dL Estim Creat Clear Calc 105.7 Estimated GFR > 60 Random Glucose 236 H (60-115) mg/dL Calcium 8.5 D (8.4-10.2) mg/dL Magnesium 1.7 (1.6-2.6) mg/dL Total Bilirubin 0.9 (0.0-1.0) mg/dL Direct Bilirubin 0.4 (0.0-0.5) mg/dL AST 44 H (5-37) U/L ALT 54 H (0-40) U/L Alkaline Phosphatase 96 (39-117) U/L Troponin I High Sens 10.7 D (<3.5-35.0) ng/L B-Natriuretic Peptide 641 H (<100) pg/mL Total Protein 6.8 (6.5-8.0) g/dL Albumin 2.8 L (3.5-5.0) g/dL Influenza Type A (PCR) NEGATIVE (Negative) Influenza Type B (PCR) NEGATIVE (Negative) RSV RNA Qual (PCR) NEGATIVE (Negative) SARS-CoV-2 RNA (RT-PCR) NEGATIVE (Negative) Independent Interpretation I performed an independent interpretation of an: EKG Interpretation: My independent interpretation patient's 12 EKG done at 10:13 hours is as follows: Sinus tachycardia with a rate of 101, normal IA interval, QRS duration QTC interval, no ST segment elevation, no ST segment depression, no significant T-wave abnormalities, no PACs, no PVCs External Record Review External record reviewed: Office record (Cardiology) Chronic Conditions Patient?s care impacted by: Diabetes and Other (Cardiomyopathy) Discharge Plan Discharge Clinical Impression: Cellulitis of foot, right, Diabetic foot ulcer, Edema, peripheral, Cardiomyopathy Patient Disposition: Admitted As Inpatient Prescriptions: No Action (DME) FreeStyle Elaine 3 Sensor Device See Rx Instructions .Route Qty: 1 3RF Rx Instructions: As directed albuterol sulfate 90 mcg/actuation HFA aerosol inhaler 1 inh inhalation QID PRN (Reason: shortness of breath or wheezing) 30 Days Qty: 8.5 0RF midodrine 5 mg tablet 5 mg PO TID 90 Days Qty: 270 3RF Rx Instructions: do not give last dose of day after 6PM or within 4 hrs of bedtime (DME) FreeStyle Elaine 3 [place] Misc See Rx Instructions .Route Qty: 1 0RF Rx Instructions: As directed (DME) pen needle, diabetic [BD Lula 2nd Gen Pen Needle] 32 gauge x 5/32 needle See Rx Instructions .ROUTE DAILY Qty: 1200 1RF Rx Instructions: 4 times per day multivitamin Tablet 1 tab PO DAILY carvedilol 3.125 mg tablet 3.125 mg PO BID furosemide 20 mg tablet 20 mg PO DAILY (DME) FreeStyle Elaine 3 Sensor Device See Rx Instructions .Route Qty: 2 6RF Rx Instructions: As directed insulin glargine [Lantus Solostar U-100 Insulin] 100 unit/mL (3 mL) insulin pen 32 unit subcut BEDTIME 90 Days Qty: 28.8 3RF insulin lispro 100 unit/mL insulin pen 10 unit subcut TID 30 Days Qty: 15 3RF Rx Instructions: Breakfast, Lunch and Dinner Print Language: Cypriot
--- NOTE | 2024-08-22 14:15 | PC.NURSE ---
MD Tita aware of elevated BP.
[2024-08-22] MEDS: Furosemide 100 MG/10 ML VIAL 60 MG IVPUSH (15:03)
--- NOTE | 2024-08-22 15:05 | PC.NURSE ---
MD Tita aware pt has ucler to right rosibel MD at bedside to assess.
--- NOTE | 2024-08-22 15:42 | MHC.EDTECH ---
jeninffer Olivo cecil first set of cultures
[2024-08-22] MEDS: Piperacillin Sodium/Tazobactam 4.5 GM in 0.9 % Sodium Chloride 100 ML IV (15:53)
[2024-08-22 15:59] LABS: Lactic Acid 0.9 mmol/L (0.5-2.0)
--- NOTE | 2024-08-22 16:01 | PHA.MEDREC ---
Pharmacy Consult ? Medication Reconciliation Pharmacy has completed the medication reconciliation. Confirmed medications with patient. Patient stated Entresto and Jardiance are on hold by his Dr until his blood pressure is stable. He also confirmed his insulin glargine 100 unit/mL (3 mL) pen and confirmed he is injecting 32 units at bedtime. He also confirmed his insulin Lispro 100 unit/mL pen and confirmed he is using it per a sliding scale three times a day before meals. He stated he was not able to take any medications this today, but took all his medications yesterday.
--- NOTE | 2024-08-22 16:09 | PM.IMHP ---
History of Present Illness Date of Service: 08/22/24 Chief Complaint: Shortness of breaths 44-year-old male with a history of diabetes mellitus, cardiomyopathy with EF of 20% on 05/10/2024 who presents emergency department for evaluation of 4 days of weakness, fatigue, intermittent chest pressure and increased swelling in his lower extremities. Patient states that 4 days prior he was walking at [employer] for proximally 30 minutes. He states that while he was walking and had some intermittent chest pressure which would last minutes he states he did feel tired and fatigued. He states that the next day he then developed swelling in his lower extremities which is gotten progressively worse. He states he continues to have intermittent chest pressure lasting minutes, several times a day. The patient states that he had COVID-19 three months ago and since that time he was had a persistent cough which is nonproductive. He does feel short of breath at rest, he was orthopnea and he has dyspnea on exertion. Denied fever but did have chills. He denied rhinorrhea or sore throat. He denied nausea, vomiting or diarrhea. Patient states that he had a callus on his right foot near the 5th toe. Patient's saw bush regenerator proximally 2 months ago and the callus was scraped off. Patient states that since he has had increased swelling in his legs and feet he noted increased pressure from his shoes and a callus came back. He states that a he noticed increased redness and warmth to his right foot and ankle. Admission requested for CHF exacerbation along with cellulitis right foot Review of Systems Review of Systems: Admits to exertional chest pain over the last several days Admits shortness of breath with minimal activity Denies nausea vomiting diarrhea Denies fever chills PMFSH Medical History Chronic combined systolic and diastolic CHF (congestive heart failure) Palpitation JOLIE (generalized anxiety disorder) MDD (major depressive disorder), recurrent episode, moderate Diabetic foot ulcer Cardiomyopathy Alcohol use disorder in remission HTN (hypertension) DMII (diabetes mellitus, type 2) CHF (congestive heart failure) Small bowel obstruction Hx of intestinal obstruction Foot callus Erectile disorder due to medical condition in male patient Knee pain, right Family History Mother Diabetes High blood pressure Surgical History Hx of esophagogastroduodenoscopy History of appendectomy History of hernia surgery Social History Household Members: Spouse, Family and Children Household Members Other:: three kids and Housing: House Do you presently have visiting nurse or other home services: No Alcohol intake: never Patient Tobacco Use Status: Never used Tobacco Smoked in Last 30 Days: No e-Cigarette/Vaping Use: Never Used Second Hand Smoke Exposure: No Use of substances other than those prescribed or required for medical reasons: No Advance Directives: Yes Advance Directives on File: Yes Advance Directives Date on File: 12/16/23 service: No Current occupational status: employed Current occupation: right handed Cognitive needs: No Hearing needs: No Vision needs: No Meds Allergies Allergy/AdvReac Type Severity Reaction Status Date / Time metformin AdvReac Intermediate GI side Verified 08/22/24 10:21 effects Active Medications: Current Medications Acetaminophen (Acetaminophen 325 Mg Tablet) 650 mg PO Q6H PRN PRN Reason: Pain, Mild 1-3,fever,headache Albuterol Sulfate (Albuterol Sulfate 90 Mcg 8 Gm Inhaler) 1 puff INHALE QID PRN PRN Reason: shortness of breath or wheezing Calcium Carbonate (Calcium Carbonate 750 Mg Tab.Chew) 750 mg PO Q4H PRN PRN Reason: Heartburn Carvedilol (Carvedilol 3.125 Mg Tablet) 3.125 mg PO BID JIMENEZ; Protocol Enoxaparin Sodium (Enoxaparin Sodium 40 Mg/0.4 Ml Syringe) 40 mg SUBCUT Q24H [facility] Vancomycin HCl (Vancomycin/Ns) 2,000 mg in 500 mls @ 250 mls/hr IV ONCE ONE Stop: 08/22/24 18:07 Magnesium Hydroxide (Milk Of Magnesia 30 Ml Oral.Susp) 30 ml PO DAILY PRN PRN Reason: Constipation Melatonin (Melatonin 3 Mg Tablet) 6 mg PO BEDTIME PRN PRN Reason: Insomnia Midodrine (Midodrine Hcl 5 Mg Tablet) 5 mg PO TID [facility] Multivitamins/Vitamin C (Multivitamin Tablet) 1 tab PO DAILY [facility] Ondansetron HCl (Ondansetron Hcl 4 Mg/2 Ml Vial) 4 mg IVPUSH Q8H PRN PRN Reason: Nausea and Vomiting Pharmacy Consult (Consult Rx Vancomycin Dosing) 1 each MISCELLANE DAILY PRN PRN Reason: Consult order Sodium Chloride (0.9 % Sodium Chloride Flush 3 Ml Syringe) [facility]ations ?Medication ?Instructions ?Recorded ?Confirmed ?Last Taken ?Type multivitamin 1 tab PO DAILY 02/16/24 08/22/24 08/21/24 History carvedilol 3.125 mg tablet 3.125 mg PO BID 05/09/24 08/22/24 08/21/24 History insulin lispro 100 unit/mL See Protocol subcut TIDAC 08/22/24 08/22/24 08/21/24 History subcutaneous pen Physical Exam Vital Signs and Narrative: Vital Signs: Last Vital Signs Temp 98.4 F 08/22/24 15:41 Pulse 99 08/22/24 15:41 Resp 16 08/22/24 15:41 BP 156/108 H 08/22/24 15:41 Pulse Ox 97 08/22/24 15:41 O2 Del Method Room Air 08/22/24 15:41 BMI result Body Mass Index 31.1 Const: Other: Awake alert no acute distress Resp: Other: Diminished at bases with bilateral basilar crackles noted Cardio: Other: No S4; positive S1-S2; no S3 murmurs rubs or gallops GI: Other: Soft nontender nondistended normoactive bowel sounds Neuro: Other: Cranial nerves 2-12 grossly intact as tested. Motor is 5/5 all extremities. Sensation is intact. Cognition appropriate Extrem: Other: 1+ pitting edema bilaterally. See ER photos for assessment of right foot Results Labs 08/22/24 11:06 08/22/24 11:06 Labs: Laboratory Results - last 24 hr 08/22/24 08/22/24 11:06 15:39 MCV 81.5 MCH 27.3 MCHC 33.4 RDW 14.8 Plt Count 143 L D MPV 10.5 Immature Gran % (Auto) 0.4 Neut % (Auto) 70.4 Lymph % (Auto) 18.9 L Ritchie % (Auto) 7.1 Eos % (Auto) 2.7 Baso % (Auto) 0.5 Lymph # (Auto) 1.5 Ritchie # (Auto) 0.6 Eos # (Auto) 0.2 Baso # (Auto) 0.0 Abs Immat Gran (auto) 0.03 Absolute Neuts (auto) 5.5 Absolute Nucleated RBC 0.000 Nucleated RBC % (auto) 0.0 Anion Gap 9 L Estim Creat Clear Calc 105.7 Estimated GFR > 60 Random Glucose 236 H Lactic Acid 0.9 Calcium 8.5 D Magnesium 1.7 Total Bilirubin 0.9 Direct Bilirubin 0.4 AST 44 H ALT 54 H Alkaline Phosphatase 96 Troponin I High Sens 10.7 D B-Natriuretic Peptide 641 H Total Protein 6.8 Albumin 2.8 L Influenza Type A (PCR) NEGATIVE Influenza Type B (PCR) NEGATIVE RSV RNA Qual (PCR) NEGATIVE SARS-CoV-2 RNA (RT-PCR) NEGATIVE Imaging Radiologist's Impressions: Impressions Chest X-Ray 08/22/24 10:45 IMPRESSION: Unremarkable chest examination. 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: without [place] [facility] use Diabetes mellitus complication status: with hyperglycemia Qualified Code(s): E11.65 - Type 2 diabetes mellitus with hyperglycemia Status: Acute (4) HTN (hypertension): Qualifiers: Hypertension type: primary hypertension Qualified Code(s): I10 - Essential (primary) hypertension Status: Acute Plan 44-year-old male with a history of diabetes and cardiomyopathy (last echo 05/10/2024 demonstrates EF 28%) has been off diuretics for 3 months presents for fatigue shortness of breath dyspnea on exertion and lower extremity swelling worsening over the last week. He does describe intermittent chest pressure. Workup demonstrates a BNP which is elevated at 641. When further queried he also complains of a callus his right foot that has been worsening over the past several weeks.\ 1. Cellulitis of right foot -vancomycin/Zosyn (1) -surgical consult in a.m. 2. Combined systolic and diastolic congestive heart failure (LVEF 04/2024 28%) -given dose of IV Lasix in ER... Follow clinical response -continue midodrine/carvedilol as per outpatient dosing -cardiology in a.m.. Further imaging and/or testing at cardiology's direction 3. Diabetes type 2 -acceptable control on current therapies -lispro correctional scale... Outpatient Lantus dosing -diabetic diet -adjust as indicated 4. Hypertension -patient states meds adjusted by Dr. Ritter secondary to hypotension -continue outpatient therapies -adjust as indicated -follow renals/divalents Full code Lovenox Patient will require at least 2 midnights going forward of inpatient stay to treat acute systolic and diastolic control her congestive heart failure and IV antibiotics for cellulitis of right foot. This can not be achieved a lesser acute setting Quality Stroke Does the patient have a stroke diagnosis?: No VTE Prior VTE?: No VTE Risk Level:: Medical - moderate - high VTE Device Contraindication: Treatment Not Indicated VTE Drug Contraindication: N/A - Med Ordered
[2024-08-22 16:13] LABS: Troponin-I High Sensitivity 10.2 ng/L (<3.5-35.0)
[2024-08-22 16:36] LABS: Appearance Urine Clear; Color Urine Yellow; Glucose Urine UA Negative (Negative); Leukocyte Esterase Urine Negative (Negative); Nitrite Urine Negative (Negative); PH 5.5 (5.0-9.0); UMIC TRIGGER UACC YES; Urine Blood Moderate (2+) (Negative); Urine Ketones Negative (Negative); Urine Protein 300 (3+) mg/dL (Neg-Trace)
[2024-08-22 17:09] LABS: Bacteria Urine None Seen (None Seen); Hyaline Casts Urine 0-2 /LPF (0-2); Squamous Epithelial Cell Urine 0-2 /HPF (0-2); WBC Urine 0-5 /HPF (0-5)
[2024-08-22] MEDS: Multivitamin TABLET 1 TAB PO (17:15)
[2024-08-22] MEDS: Midodrine HCl 5 MG TABLET PO ×2 (17:15→21:48)
[2024-08-22] MEDS: vancomycin/NS 2,000 MG/500 ML PLAST..BAG 250 MG IV (17:16)
[2024-08-22] MEDS: Enoxaparin Sodium 40 MG/0.4 ML SYRINGE SUBCUT (17:16)
--- NOTE | 2024-08-22 17:50 | PC.NURSE ---
Patient came via triage from home due to increased swelling in ankles and legs, left sided chest pain with SOB. Pt has hx of cardiomyopathy and CHF. Alert and oriented, OOB ambulating in room, using urinal, gait steady. Labs obtained as ordered. Medication given per OCT. 20g right AC IV placed.
[2024-08-22 18:19] LABS: Glucose, Whole Blood 180 mg/dL (60-115)
--- NOTE | 2024-08-22 19:28 | PHA.PROG ---
Admission Date/Time: August 22, 2024 16:09 Indication: SKIN Weight in k.3 kg Adjusted body weight in Kg: [place] body weight in Kg: Obesity Dosing Indication % IBW: Serum Creatinine - Last 168 Hours 08/22/24 11:06 Creatinine 1.07 Estimated CrCl and GFR - Last 168 Hours 08/22/24 11:06 Estim Creat Clear Calc 105.7 Estimated GFR > 60 Vancomycin Loading Dose: 2000 MG Current Vancomycin Dosing Regimen: 1000 MG Q12H Vancomycin Monitoring using AUC goal of 400 - 600 range with trough as surrogate marker: XNH=714 TROUGH=13.5 Date and Time for next Vancomycin Level to be drawn: 08/24/24 @0600 Pharmacist Comments on Vancomycin Plan: Vancomycin dosing will take advantage of [employer] as a clinical decision support tool that uses Bayesian modeling to calculate individual patient's pharmacokinetic parameters and forecast the patient's drug concentration time course with the target goal AUC 24 range of 400 - 600 mg/L/hr.
[2024-08-22 20:58] LABS: Glucose, Whole Blood 244 mg/dL (60-115)
[2024-08-22] MEDS: carvediloL 3.125 MG TABLET PO (21:47)
[2024-08-22] MEDS: Insulin Lispro 100 UNIT/ML 3 ML VIAL SUBCUT (21:47)
[2024-08-23] VITALS (7 sets, daily range): BP systolic 126–153; BP diastolic 77–97; PULSE 92–99; RESP 16–20; TEMP 36.2–36.7; O2SAT 93–98
--- NOTE | 2024-08-23 07:00 | CA_ITS ---
Transthoracic Echocardiogram Patient (Last, First, Middle): Mark Humphrey, Gender: Male Date of : 1980 Age: 44 Procedure Date: 08/23/2024 Procedure Type: Transthoracic Echocardiogram [place] [facility] [place]: 177.8 cm Weight: 97.98 kg BSA: 2.16 m2 Heart Rate: bpm BP: 145 / 91 mmHg Circus Agent: Referring MD: Oleg Ritter MD Symptoms: CHF Study Quality: Fair Conclusions: - The left ventricular systolic function is severely decreased. The visually estimated ejection fraction is between 20-25%. Findings Left Ventricle Mildly increased left ventricular cavity size. The left ventricular systolic function is severely decreased. The visually estimated ejection fraction is between 20-25%. Right Ventricle Normal right ventricular cavity size and systolic function. Venous The inferior vena cava is mildly dilated and collapses less than 50% with inspiration. Pericardium/Pleural There is a trivial pericardial effusion. Prior Study Comparison No significant change compared to prior study dated: 05/10/2024. Measurements 2D Linear Measurements IVSd: 1.10 0.6-0.9/0.6-1.0 cm LVIDd: 5.78 3.9-5.3/4.2-5.9 cm LVIDd Index: 2.68 2.4-3.2/2.2-3.1 cm/m2 LVIDs: 4.90 2.0-3.6 cm LVPWd: 1.01 0.7-1.1 cm LV Mass: 309.99 67-162/88-224 g LV Mass Index: 143.51 43-95/49-115 g/m2 2D Systolic Function EF 4C: 25.40 >55% EF 2C: 21.50 >55% EF BiP: 23.40 >55% Right Ventricle TAPSE (mm): 18.90 TVS' Ramón: 11.20 Updated in Other Vendor System with Status of Final Oleg Ritter MD electronically signed on 08/23/2024 3:16:28 PM with status of Final
[2024-08-23 07:25] LABS: MANUAL DIFF FLAG NO
[2024-08-23 07:34] LABS: Glucose, Whole Blood 205 mg/dL (60-115)
[2024-08-23 07:34] LABS: Basophils Percent Auto 0.5 % (0-2); Eosinophils Absolute Auto 0.2 X10*3/uL (0.0-0.4); Eosinophils Percent Auto 3.7 % (0-4); Hematocrit 32.4 % (42.0-52.0); Hemoglobin 10.9 g/dl (14.0-18.0); Imm Gran Abs Auto 0.02 X10*3/uL (0.00-0.03); Imm Gran Pct Auto 0.4 % (0.0-0.4); Lymphocytes Absolute Auto 1.4 X10*3/uL (1.2-4.9); Lymphocytes Percent Auto 24.9 % (20-40); Mean Corpuscular HGB Conc 33.6 g/dl (31.0-36.0); Mean Corpuscular Hemoglobin 27.6 pg (27.0-33.0); Mean Platelet Volume 11.5 fL (9.4-12.4); Monocytes Absolute Auto 0.5 X10*3/uL (0.1-1.2); Monocytes Percent Auto 8.1 % (2-11); Neutrophils Absolute Auto 3.6 x10*3/uL (2.0-8.3); Neutrophils Percent Auto 62.4 % (45-73); Platelet Count 134 X10*3/uL (160-400); Red Blood Count 3.95 X10*6/uL (4.60-5.80); Red Cell Distribution Width 14.6 % (11.0-16.0); White Blood Count 5.7 X10*3/uL (4.8-10.8)
[2024-08-23 07:54] LABS: B Type Natriuretic Peptide 809 pg/mL (<100)
[2024-08-23 07:57] LABS: Alanine Aminotransferase 39 U/L (0-40); Albumin Level 2.5 g/dL (3.5-5.0); Anion Gap 10 (12-20); Aspartate Amino Transferase 33 U/L (5-37); Bilirubin Total 0.7 mg/dL (0.0-1.0); Blood Urea Nitrogen 18 mg/dL (9-16); Calcium 8.5 mg/dL (8.4-10.2); Carbon Dioxide 28 mmol/L (22-29); Chloride 106 mmol/L (96-108); Creatinine Clr Calc Pharmacy 90.5; Estimated Glomerular Filt Rate > 60; Glucose Random 218 mg/dL (60-115); Potassium 3.7 mmol/L (3.3-5.1); Sodium 140 mmol/L (135-145); Total Protein 6.1 g/dL (6.5-8.0)
[2024-08-23 08:10] LABS: Alkaline Phosphatase 86 U/L (39-117)
--- NOTE | 2024-08-23 09:09 | HE.PHANOTE ---
VANCO DOSE ADJUSTMENT BASED ON SCR OF 1.25 DOSE CONTINUED AT 1000 Q 12H. SCR INCREASED BUT STILL IN THE TARGET AUC. NEXT LEVEL 08/24 @ 0600
--- NOTE | 2024-08-23 09:10 | MHC.CM.PN ---
Pt lives with a friend, PCP confirmed: Tomy Cannon, HCP is on file and confirmed: Gabrielle. Pt is independent, no home health services or DME. He is able to arrange transportation at [place]. DCP: home, self care. CM to follow for [place] needs.
[2024-08-23] MEDS: Insulin Lispro 100 UNIT/ML 3 ML VIAL SUBCUT ×4 (09:15→21:06)
--- NOTE | 2024-08-23 10:05 | PM.CNCAR ---
History of Present Illness History of Present Illness Date of Service: 08/23/24 Chief complaint: Shortness of breath Narrative: This is a cardiology consultation regarding congestive heart failure. Last clinic appointment was on May. Suspected nonischemic cardiomyopathy possibly from alcohol. No known coronary disease myocardial infarction and a previous stress test unremarkable. He was having dizziness from orthostatic hypotension and was on midodrine. Hence other medications could not really be used and he was only taking carvedilol. Otherwise, he was getting really hypotensive. He used to be on medications including Entresto, Jardiance, spironolactone but everything was stopped because of orthostatic hypotension. In fact he had admission for syncope when all these were stopped. Is presenting complaint is that he is getting short of breath with activity and he is also getting leg swelling. He states he has not been taking any diuretics. There was also concern for possible cellulitis of his lower extremities. Review of Systems Review of Systems: Yes all other systems are reviewed and are negative Constitutional: Constitutional: Reports as per HPI and Reports no additional constitutional complaints Eyes: Eyes: Reports as per HPI and Denies no additional eye complaints ENT: Denies system reviewed and no additional complaints, except as documented and Reports as per HPI Cardiovascular: Cardiovascular: Reports as per HPI, Reports no additional cardiovascular complaints, Denies acrocyanosis, Denies cool extremities, Denies chest pain, Reports leg edema, Denies lightheadedness, Denies palpitations and Reports dyspnea Respiratory: Respiratory: Reports as per HPI, Denies no additional respiratory complaints and Reports dyspnea Gastrointestinal: Gastrointestinal: Reports as per HPI and Denies no additional gastrointestinal complaints Genitourinary: Genitourinary: Reports no additional male genitourinary complaints and Reports as per HPI Musculoskeletal: Musculoskeletal: Reports no additional musculoskeletal complaints and Reports as per HPI Integumentary/Breasts: Skin/Breast: Reports system reviewed and no additional complaints, except as docu Neurologic: Reports system reviewed and no additional complaints, except as documented and Reports as per HPI Psychiatric: Psychiatric: Reports no additional psychiatric complaints and Reports as per HPI Endocrine: Endocrine: Reports no additional endocrine complaints, Reports as per HPI and Denies palpitations Hematologic/Lymphatic: Hematologic/Lymphatic: Reports no additional hematologic/lymphatic complaints and Reports as per HPI Allergic/Immunologic: Allergic/Immunologic: Reports no additional allergic/immunologic complaints and Reports as per HPI [facility] Past Medical History Medical History Chronic combined systolic and diastolic CHF (congestive heart failure) Palpitation JOLIE (generalized anxiety disorder) MDD (major depressive disorder), recurrent episode, moderate Diabetic foot ulcer Cardiomyopathy Alcohol use disorder in remission HTN (hypertension) DMII (diabetes mellitus, type 2) CHF (congestive heart failure) Small bowel obstruction Hx of intestinal obstruction Foot callus Erectile disorder due to medical condition in male patient Knee pain, right Family History Family History Mother Diabetes High blood pressure Surgical History Surgical History Hx of esophagogastroduodenoscopy History of appendectomy History of hernia surgery Social History Social History Household Members: Spouse, Family and Children Household Members Other:: three kids and Housing: House Do you presently have visiting nurse or other home services: No Alcohol intake: never Patient Tobacco Use Status: Never used Tobacco e-Cigarette/Vaping Use: Never Used Second Hand Smoke Exposure: No Advance Directives Date on File: 12/16/23 service: No Current occupational status: employed Current occupation: right handed Cognitive needs: No Hearing needs: No Vision needs: No Meds Allergies Allergy/AdvReac Type Severity Reaction Status Date / Time metformin AdvReac Intermediate GI side Verified 08/22/24 10:21 effects Active Medications: Current Medications Acetaminophen (Acetaminophen 325 Mg Tablet) 650 mg PO Q6H PRN PRN Reason: Pain, Mild 1-3,fever,headache Albuterol Sulfate (Albuterol Sulfate 90 Mcg 8 Gm Inhaler) 1 puff INHALE QID PRN PRN Reason: shortness of breath or wheezing Calcium Carbonate (Calcium Carbonate 750 Mg Tab.Chew) 750 mg PO Q4H PRN PRN Reason: Heartburn Carvedilol (Carvedilol 3.125 Mg Tablet) 3.125 mg PO BID JIMENEZ; Protocol Last Admin: 08/22/24 21:47 Dose: 3.125 mg Enoxaparin Sodium (Enoxaparin Sodium 40 Mg/0.4 Ml Syringe) 40 mg SUBCUT Q24H JIMENEZ Last Admin: 08/22/24 17:16 Dose: 40 mg Glucose (Glucose Gel 15 Gm Gel..Gram.) 15 gm PO Q15M PRN; Protocol PRN Reason: per Hypoglycemia Standing Ord. Dextrose (D10) 250 mls @ 750 mls/hr IV Q15M PRN; Protocol PRN Reason: per Hypoglycemia Standing Ord. Vancomycin HCl 1,000 mg/ (Sodium Chloride) 270 mls @ 270 mls/hr IV Q12H [facility] Insulin Human Lispro (Insulin Lispro 100 Unit/Ml 3 Ml Vial) 0 unit SUBCUT QIDACHS [facility]; Protocol Last Admin: 08/22/24 21:47 Dose: 4 unit Magnesium Hydroxide (Milk Of Magnesia 30 Ml Oral.Susp) 30 ml PO DAILY PRN PRN Reason: Constipation Melatonin (Melatonin 3 Mg Tablet) 6 mg PO BEDTIME PRN PRN Reason: Insomnia Midodrine (Midodrine Hcl 5 Mg Tablet) 5 mg PO TID [facility] Last Admin: 08/22/24 21:48 Dose: 5 mg Multivitamins/Vitamin C (Multivitamin Tablet) 1 tab PO DAILY [facility] Last Admin: 08/22/24 17:15 Dose: 1 tab Ondansetron HCl (Ondansetron Hcl 4 Mg/2 Ml Vial) 4 mg IVPUSH Q8H PRN PRN Reason: Nausea and Vomiting Pharmacy Consult (Consult Rx Vancomycin Dosing) 1 each MISCELLANE DAILY PRN PRN Reason: Consult order Sodium Chloride (0.9 % Sodium Chloride Flush 3 Ml Syringe) 3 ml IVFLUSH QSHIFT [facility] Last Admin: 08/22/24 23:13 Dose: Not Given Home Medications ?Medication ?Instructions ?Recorded ?Confirmed ?Last Taken ?Type multivitamin 1 tab PO DAILY 02/16/24 08/22/24 08/21/24 History carvedilol 3.125 mg tablet 3.125 mg PO BID 05/09/24 08/22/24 08/21/24 History insulin lispro 100 unit/mL See Protocol subcut TIDAC 08/22/24 08/22/24 08/21/24 History subcutaneous pen Physical Exam Vital Signs: Vital Signs: Last Vital Signs Temp 97.8 F 08/23/24 07:28 Pulse 92 08/23/24 07:28 Resp 18 08/23/24 07:28 BP 141/94 H 08/23/24 07:28 Pulse Ox 98 08/23/24 07:28 O2 Del Method Room Air 08/23/24 07:28 BMI result Body Mass Index 31.1 Const: General: comfortable and no acute distress Orientation/consciousness: patient oriented x3 HEENT: Other: Unremarkable Head: Yes normal to inspection Neck: Neck: Yes normal visual inspection Chest: Chest palpation & inspection: normal inspection of the chest Resp: Auscultation: crackles bilateral at the base Cardio: Palpation: normal PMI Heart sounds: S1 normal heart sound present, S2 normal heart sound present, no gallops, no murmurs and no rubs GI: Palpation (GI): Soft to palpation Back/Spine/Pelvis: Other: unremarkable Skin: General skin exam: no rashes or lesions noted Neuro: General: patient oriented x3 Extrem: Other: 1+ edema General: Yes normal to inspection Psych: Mental Status: mental status grossly normal Objective Labs and Meds 08/23/24 06:43 08/23/24 06:43 Lab results: Laboratory Results - last 24 hr 08/22/24 08/22/24 08/22/24 11:06 15:35 15:39 WBC 7.8 RBC 4.33 L Hgb 11.8 L Hct 35.3 L MCV 81.5 MCH 27.3 MCHC 33.4 RDW 14.8 Plt Count 143 L D MPV 10.5 Immature Gran % (Auto) 0.4 Neut % (Auto) 70.4 Lymph % (Auto) 18.9 L [place] % (Auto) 7.1 Eos % (Auto) 2.7 Baso % (Auto) 0.5 Lymph # (Auto) 1.5 [place] # (Auto) 0.6 Eos # (Auto) 0.2 Baso # (Auto) 0.0 Abs Immat Gran (auto) 0.03 Absolute Neuts (auto) 5.5 Absolute Nucleated RBC 0.000 Nucleated RBC % (auto) 0.0 Sodium 140 Potassium 3.9 Chloride 108 Carbon Dioxide 27 Anion Gap 9 L BUN 17 H Creatinine 1.07 Estim Creat Clear Calc 105.7 Estimated GFR > 60 POC Glucose Random Glucose 236 H Lactic Acid 0.9 Calcium 8.5 D Magnesium 1.7 Total Bilirubin 0.9 Direct Bilirubin 0.4 AST 44 H ALT 54 H Alkaline Phosphatase 96 Troponin I High Sens 10.7 D 10.2 B-Natriuretic Peptide 641 H Total Protein 6.8 Albumin 2.8 L Urine Color Urine Appearance Urine pH Ur Specific [place] Urine Protein Urine Glucose (UA) Urine Ketones Urine Blood Urine Nitrite Ur Leukocyte Esterase Urine RBC Urine WBC Ur Squamous Epith Cells Urine Bacteria Hyaline Casts Influenza Type A (PCR) NEGATIVE Influenza Type B (PCR) NEGATIVE RSV RNA Qual (PCR) NEGATIVE SARS-CoV-2 RNA (RT-PCR) NEGATIVE 08/22/24 08/22/24 08/22/24 16:28 18:16 20:55 WBC RBC Hgb Hct MCV MCH MCHC RDW Plt Count MPV Immature Gran % (Auto) Neut % (Auto) Lymph % (Auto) [place] % (Auto) Eos % (Auto) Baso % (Auto) Lymph # (Auto) [place] # (Auto) Eos # (Auto) Baso # (Auto) Abs Immat Gran (auto) Absolute Neuts (auto) Absolute Nucleated RBC Nucleated RBC % (auto) Sodium Potassium Chloride Carbon Dioxide Anion Gap BUN Creatinine Estim Creat Clear Calc Estimated GFR POC Glucose 180 H 244 H Random Glucose Lactic Acid Calcium Magnesium Total Bilirubin Direct Bilirubin AST ALT Alkaline Phosphatase Troponin I High Sens B-Natriuretic Peptide Total Protein Albumin Urine Color Yellow Urine Appearance Clear Urine pH 5.5 Ur Specific [place] 1.010 Urine Protein 300 (3+) H Urine Glucose (UA) Negative Urine Ketones Negative Urine Blood Moderate (2+) H Urine Nitrite Negative Ur Leukocyte Esterase Negative Urine RBC 3-5 H Urine WBC 0-5 Ur Squamous Epith Cells 0-2 Urine Bacteria None Seen Hyaline Casts 0-2 Influenza Type A (PCR) Influenza Type B (PCR) RSV RNA Qual (PCR) SARS-CoV-2 RNA (RT-PCR) 08/23/24 08/23/24 06:43 07:26 WBC 5.7 RBC 3.95 L Hgb 10.9 L Hct 32.4 L MCV 82.0 MCH 27.6 MCHC 33.6 RDW 14.6 Plt Count 134 L MPV 11.5 Immature Gran % (Auto) 0.4 Neut % (Auto) 62.4 Lymph % (Auto) 24.9 [place] % (Auto) 8.1 Eos % (Auto) 3.7 Baso % (Auto) 0.5 Lymph # (Auto) 1.4 [place] # (Auto) 0.5 Eos # (Auto) 0.2 Baso # (Auto) 0.0 Abs Immat Gran (auto) 0.02 Absolute Neuts (auto) 3.6 Absolute Nucleated RBC 0.000 Nucleated RBC % (auto) 0.0 Sodium 140 Potassium 3.7 Chloride 106 Carbon Dioxide 28 Anion Gap 10 L BUN 18 H Creatinine 1.25 Estim Creat Clear Calc 90.5 Estimated GFR > 60 POC Glucose 205 H Random Glucose 218 H Lactic Acid Calcium 8.5 Magnesium Total Bilirubin 0.7 Direct Bilirubin AST 33 ALT 39 Alkaline Phosphatase 86 Troponin I High Sens B-Natriuretic Peptide 809 H Total Protein 6.1 L Albumin 2.5 L Urine Color Urine Appearance Urine pH Ur Specific [place] Urine Protein Urine Glucose (UA) Urine Ketones Urine Blood Urine Nitrite Ur Leukocyte Esterase Urine RBC Urine WBC Ur Squamous Epith Cells Urine Bacteria Hyaline Casts Influenza Type A (PCR) Influenza Type B (PCR) RSV RNA Qual (PCR) SARS-CoV-2 RNA (RT-PCR) ECG Interpretation: EKG with sinus tachycardia at 101/Min; no significant ST-T changes and otherwise unremarkable. Normal CT and corrected QT. Imaging Radiologist's impression: Impressions Chest X-Ray 08/22/24 10:45 IMPRESSION: Unremarkable chest examination. Electronically signed by: Maynor Barron MD 08/22/2024 10:54 AM [facility] [place] Assessment and Plan (1) Acute combined systolic and diastolic CHF, NYHA class 3: Status: Acute Plan Per last echocardiogram in April of 2024, LVEF is 28%. We will repeat the study. For medications, difficult situation due to concurrent history of orthostatic hypotension/syncope. However, recent blood pressures are more so in the hypertensive range. We can do IV diuretics and see how he does. Repeat echocardiogram. Medical regimen will need to be decided based on how he does. We will follow up with you. Procedures Date of Service Date of Service: 08/23/24
[2024-08-23] MEDS: 0.9 % Sodium Chloride Flush 3 ML SYRINGE IVFLUSH ×3 (11:00→23:27)
[2024-08-23] MEDS: Midodrine HCl 5 MG TABLET PO ×3 (11:00→20:49)
[2024-08-23] MEDS: Multivitamin TABLET 1 TAB PO (11:00)
[2024-08-23] MEDS: Furosemide 40 MG/4 ML VIAL IVPUSH ×2 (11:01→18:33)
[2024-08-23] MEDS: carvediloL 3.125 MG TABLET PO ×2 (11:01→20:49)
[2024-08-23] MEDS: vancomycin HCL 1,000 MG in 0.9 % Sodium Chloride 250 ML 270 MG IV ×2 (11:02→20:49)
[2024-08-23 11:58] LABS: Glucose, Whole Blood 235 mg/dL (60-115)
--- NOTE | 2024-08-23 13:13 | P.PNIM_ITS ---
Subjective Subjective Date of Service: 08/23/24 Interval History: Some improvement overnight. Still with edema in his legs. No respiratory complaints Review of Systems Admits to exertional chest pain over the last several days Admits shortness of breath with minimal activity Denies nausea vomiting diarrhea Denies fever chills Physical Exam 2 Vital Signs: Vital Signs: Last Vital Signs Temp 97.8 F 08/23/24 11:50 Pulse 93 08/23/24 11:50 Resp 18 08/23/24 11:50 BP 145/91 H 08/23/24 11:50 Pulse Ox 98 08/23/24 11:50 O2 Del Method Room Air 08/23/24 11:50 BMI result Body Mass Index 31.1 Const: Other: Awake alert no acute distress Resp: Other: Diminished at bases with bilateral basilar crackles noted... No change since admit Cardio: Other: No S4; positive S1-S2; no S3 murmurs rubs or gallops GI: Other: Soft nontender nondistended normoactive bowel sounds Neuro: Other: Cranial nerves 2-12 grossly intact as tested. Motor is 5/5 all extremities. Sensation is intact. Cognition appropriate Extrem: Other: 1+ pitting edema bilaterally. See ER ph otos for assessment of right foot Objective Data Active Medications Acetaminophen (Acetaminophen 325 Mg Tablet) 650 mg PO Q6H PRN PRN Reason: Pain, Mild 1-3,fever,headache Albuterol Sulfate (Albuterol Sulfate 90 Mcg 8 Gm Inhaler) 1 puff INHALE QID PRN PRN Reason: shortness of breath or wheezing Calcium Carbonate (Calcium Carbonate 750 Mg Tab.Chew) 750 mg PO Q4H PRN PRN Reason: Heartburn Carvedilol (Carvedilol 3.125 Mg Tablet) 3.125 mg PO BID [facility]; Protocol Last Admin: 08/23/24 11:01 Dose: 3.125 mg Documented By: GOPI Enoxaparin Sodium (Enoxaparin Sodium 40 Mg/0.4 Ml Syringe) 40 mg SUBCUT Q24H [facility] Last Admin: 08/22/24 17:16 Dose: 40 mg Documented By: ANGELES Furosemide (Furosemide 40 Mg/4 Ml Vial) 40 mg IVPUSH BID@0900,1800 [facility]; Protocol Last Admin: 08/23/24 11:01 Dose: 40 mg Documented By: GOPI Glucose (Glucose Gel 15 Gm Gel..Gram.) 15 gm PO Q15M PRN; Protocol PRN Reason: per Hypoglycemia Standing Ord. Dextrose (D10) 250 mls @ 750 mls/hr IV Q15M PRN; Protocol PRN Reason: per Hypoglycemia Standing Ord. Vancomycin HCl 1,000 mg/ (Sodium Chloride) 270 mls @ 270 mls/hr IV Q12H [facility] Last Admin: 08/23/24 11:02 Dose: 270 mls/hr Documented By: GOPI Insulin Human Lispro (Insulin Lispro 100 Unit/Ml 3 Ml Vial) 0 unit SUBCUT QIDACHS [facility]; Protocol Last Admin: 08/23/24 09:15 Dose: 4 unit Documented By: GOPI Magnesium Hydroxide (Milk Of Magnesia 30 Ml Oral.Susp) 30 ml PO DAILY PRN PRN Reason: Constipation Melatonin (Melatonin 3 Mg Tablet) 6 mg PO BEDTIME PRN PRN Reason: Insomnia Midodrine (Midodrine Hcl 5 Mg Tablet) 5 mg PO TID [facility] Last Admin: 08/23/24 11:00 Dose: 5 mg Documented By: GOPI Multivitamins/Vitamin C (Multivitamin Tablet) 1 tab PO DAILY [facility] Last Admin: 08/23/24 11:00 Dose: 1 tab Documented By: GOPI Ondansetron HCl (Ondansetron Hcl 4 Mg/2 Ml Vial) 4 mg IVPUSH Q8H PRN PRN Reason: Nausea and Vomiting Pharmacy Consult (Consult Rx Vancomycin Dosing) 1 each MISCELLANE DAILY PRN PRN Reason: Consult order Sodium Chloride (0.9 % Sodium Chloride Flush 3 Ml Syringe) 3 ml IVFLUSH QSHIFT [facility] Last Admin: 08/23/24 11:00 Dose: 3 ml Documented By: GOPI Labs 08/23/24 06:43 08/23/24 06:43 Labs: Laboratory Results - last 24 hr 08/22/24 08/22/24 08/22/24 15:35 15:39 16:28 MCV MCH MCHC RDW Plt Count MPV Immature Gran % (Auto) Neut % (Auto) Lymph % (Auto) [place] % (Auto) Eos % (Auto) Baso % (Auto) Lymph # (Auto) [place] # (Auto) Eos # (Auto) Baso # (Auto) Abs Immat Gran (auto) Absolute Neuts (auto) Absolute Nucleated RBC Nucleated RBC % (auto) Anion Gap Estim Creat Clear Calc Estimated GFR POC Glucose Random Glucose Lactic Acid 0.9 Calcium Total Bilirubin AST ALT Alkaline Phosphatase Troponin I High Sens 10.2 B-Natriuretic Peptide Total Protein Albumin Urine Color Yellow Urine Appearance Clear Urine pH 5.5 Ur Specific [place] 1.010 Urine Protein 300 (3+) H Urine Glucose (UA) Negative Urine Ketones Negative Urine Blood Moderate (2+) H Urine Nitrite Negative Ur Leukocyte Esterase Negative Urine RBC 3-5 H Urine WBC 0-5 Ur Squamous Epith Cells 0-2 Urine Bacteria None Seen Hyaline Casts 0-2 08/22/24 08/22/24 08/23/24 18:16 20:55 06:43 MCV 82.0 MCH 27.6 MCHC 33.6 RDW 14.6 Plt Count 134 L MPV 11.5 Immature Gran % (Auto) 0.4 Neut % (Auto) 62.4 Lymph % (Auto) 24.9 [place] % (Auto) 8.1 Eos % (Auto) 3.7 Baso % (Auto) 0.5 Lymph # (Auto) 1.4 [place] # (Auto) 0.5 Eos # (Auto) 0.2 Baso # (Auto) 0.0 Abs Immat Gran (auto) 0.02 Absolute Neuts (auto) 3.6 Absolute Nucleated RBC 0.000 Nucleated RBC % (auto) 0.0 Anion Gap 10 L Estim Creat Clear Calc 90.5 Estimated GFR > 60 POC Glucose 180 H 244 H Random Glucose 218 H Lactic Acid Calcium 8.5 Total Bilirubin 0.7 AST 33 ALT 39 Alkaline Phosphatase 86 Troponin I High Sens B-Natriuretic Peptide 809 H Total Protein 6.1 L Albumin 2.5 L Urine Color Urine Appearance Urine pH Ur Specific [place] Urine Protein Urine Glucose (UA) Urine Ketones Urine Blood Urine Nitrite Ur Leukocyte Esterase Urine RBC Urine WBC Ur Squamous Epith Cells Urine Bacteria Hyaline Casts 08/23/24 08/23/24 07:26 11:49 MCV MCH MCHC RDW Plt Count MPV Immature Gran % (Auto) Neut % (Auto) Lymph % (Auto) [place] % (Auto) Eos % (Auto) Baso % (Auto) Lymph # (Auto) [place] # (Auto) Eos # (Auto) Baso # (Auto) Abs Immat Gran (auto) Absolute Neuts (auto) Absolute Nucleated RBC Nucleated RBC % (auto) Anion Gap Estim Creat Clear Calc Estimated GFR POC Glucose 205 H 235 H Random Glucose Lactic Acid Calcium Total Bilirubin AST ALT Alkaline Phosphatase Troponin I High Sens B-Natriuretic Peptide Total Protein Albumin Urine Color Urine Appearance Urine pH Ur Specific [place] Urine Protein Urine Glucose (UA) Urine Ketones Urine Blood Urine Nitrite Ur Leukocyte Esterase Urine RBC Urine WBC Ur Squamous Epith Cells Urine Bacteria Hyaline Casts Assessment and Plan (1) Cellulitis of foot, right: Status: Acute (2) Chronic combined systolic and diastolic CHF (congestive heart failure): Status: Acute (3) DMII (diabetes mellitus, type 2): Status: Acute Plan 44-year-old male with a history of diabetes and cardiomyopathy (last echo 05/10/2024 demonstrates EF 28%) has been off diuretics for 3 months presents for fatigue shortness of breath dyspnea on exertion and lower extremity swelling worsening over the last week. He does describe intermittent chest pressure. Workup demonstrates a BNP which is elevated at 641. When further queried he also complains of a callus his right foot that has been worsening over the past several weeks.\ 1. Cellulitis of right foot -vancomycin/Zosyn (2) -surgical consult in a.m. 2. Combined systolic and diastolic congestive heart failure (LVEF 04/2024 28%) -continue IV Lasix 40 mg b.i.d. -continue midodrine/carvedilol as per outpatient dosing -cardiology input appreciated 3. Diabetes type 2 -acceptable control on current therapies -lispro correctional scale... Outpatient Lantus dosing -diabetic diet -adjust as indicated 4. Hypertension -patient states meds adjusted by Dr. Ritter secondary to hypotension -continue outpatient therapies -adjust as indicated -follow renals/divalents Full code Lovenox Patient will require at least 2 midnights going forward of inpatient stay to treat acute systolic and diastolic control her congestive heart failure and IV antibiotics for cellulitis of right foot. This can not be achieved a lesser acute setting Quality Stroke Does the patient have a stroke diagnosis?: No VTE Prior VTE?: No VTE Risk Level:: Medical - moderate - high VTE Device Contraindication: Treatment Not Indicated VTE Drug Contraindication: N/A - Med Ordered
[2024-08-23 16:03] LABS: Glucose, Whole Blood 247 mg/dL (60-115)
[2024-08-23] MEDS: Enoxaparin Sodium 40 MG/0.4 ML SYRINGE SUBCUT (18:33)
[2024-08-23 20:54] LABS: Glucose, Whole Blood 166 mg/dL (60-115)
[2024-08-24 03:18] VITALS: BP 132/73; PULSE 88; RESP 18; TEMP 36.7; O2SAT 92
[2024-08-24 06:43] LABS: MANUAL DIFF FLAG NO
[2024-08-24 06:47] LABS: Basophils Percent Auto 0.7 % (0-2); Eosinophils Absolute Auto 0.2 X10*3/uL (0.0-0.4); Hematocrit 32.7 % (42.0-52.0); Hemoglobin 10.9 g/dl (14.0-18.0); Imm Gran Abs Auto 0.02 X10*3/uL (0.00-0.03); Imm Gran Pct Auto 0.4 % (0.0-0.4); Lymphocytes Absolute Auto 1.4 X10*3/uL (1.2-4.9); Lymphocytes Percent Auto 24.5 % (20-40); Mean Corpuscular HGB Conc 33.3 g/dl (31.0-36.0); Mean Corpuscular Volume 81.1 fL (80.0-98.0); Mean Platelet Volume 10.9 fL (9.4-12.4); Monocytes Absolute Auto 0.4 X10*3/uL (0.1-1.2); Monocytes Percent Auto 7.9 % (2-11); Neutrophils Absolute Auto 3.5 x10*3/uL (2.0-8.3); Neutrophils Percent Auto 62.5 % (45-73); Platelet Count 141 X10*3/uL (160-400); Red Blood Count 4.03 X10*6/uL (4.60-5.80); Red Cell Distribution Width 14.5 % (11.0-16.0); White Blood Count 5.6 X10*3/uL (4.8-10.8)
[2024-08-24 06:59] LABS: Vancomycin Random 15.9 mcg/mL (15-20)
[2024-08-24 07:01] LABS: Alanine Aminotransferase 31 U/L (0-40); Albumin Level 2.4 g/dL (3.5-5.0); Alkaline Phosphatase 81 U/L (39-117); Anion Gap 12 (12-20); Aspartate Amino Transferase 28 U/L (5-37); Bilirubin Total 0.6 mg/dL (0.0-1.0); Blood Urea Nitrogen 21 mg/dL (9-16); Calcium 8.1 mg/dL (8.4-10.2); Carbon Dioxide 27 mmol/L (22-29); Chloride 105 mmol/L (96-108); Creatinine Clr Calc Pharmacy 93.5; Estimated Glomerular Filt Rate > 60; Glucose Random 192 mg/dL (60-115); Potassium 3.4 mmol/L (3.3-5.1); Sodium 141 mmol/L (135-145)
[2024-08-24 07:25] VITALS: BP 144/89; PULSE 92; RESP 18; TEMP 36.6; O2SAT 94
[2024-08-24 07:32] LABS: Glucose, Whole Blood 190 mg/dL (60-115)
[2024-08-24] MEDS: Furosemide 40 MG/4 ML VIAL IVPUSH ×2 (08:42→16:33)
[2024-08-24] MEDS: 0.9 % Sodium Chloride Flush 3 ML SYRINGE IVFLUSH ×2 (08:43→16:39)
[2024-08-24] MEDS: Insulin Lispro 100 UNIT/ML 3 ML VIAL SUBCUT ×4 (08:43→21:26)
[2024-08-24] MEDS: Multivitamin TABLET 1 TAB PO (08:43)
[2024-08-24] MEDS: vancomycin HCL 1,000 MG in 0.9 % Sodium Chloride 250 ML 270 MG IV ×2 (08:43→20:52)
[2024-08-24] MEDS: carvediloL 3.125 MG TABLET PO ×2 (08:44→20:52)
--- NOTE | 2024-08-24 10:01 | PM.PNCARD ---
Subjective Subjective Date of Service: 08/24/24 Interval history: He is still volume overloaded. Feels short of breath. Not entirely clear if they input/output charting his accurate or not. Review of Systems Review of Systems Admits to exertional chest pain over the last several days Admits shortness of breath with minimal activity Denies nausea vomiting diarrhea Denies fever chills Yes all other systems are reviewed and are negative Constitutional: Reports as per HPI and Reports no additional constitutional complaints Eyes: Reports as per HPI and Denies no additional eye complaints Denies system reviewed and no additional complaints, except as documented and Reports as per HPI Cardiovascular: Reports as per HPI, Reports no additional cardiovascular complaints, Denies acrocyanosis, Denies cool extremities, Denies chest pain, Reports leg edema, Denies lightheadedness, Denies palpitations and Reports dyspnea Respiratory: Reports as per HPI, Denies no additional respiratory complaints and Reports dyspnea Gastrointestinal: Reports as per HPI and Denies no additional gastrointestinal complaints Genitourinary: Reports no additional male genitourinary complaints and Reports as per HPI Musculoskeletal: Reports no additional musculoskeletal complaints and Reports as per HPI Skin/Breast: Reports system reviewed and no additional complaints, except as docu Reports system reviewed and no additional complaints, except as documented and Reports as per HPI Psychiatric: Reports no additional psychiatric complaints and Reports as per HPI Endocrine: Reports no additional endocrine complaints, Reports as per HPI and Denies palpitations Hematologic/Lymphatic: Reports no additional hematologic/lymphatic complaints and Reports as per HPI Allergic/Immunologic: Reports no additional allergic/immunologic complaints and Reports as per HPI Physical Exam Vital Signs: Last Vital Signs Temp 97.8 F 08/24/24 07:25 Pulse 92 08/24/24 07:25 Resp 18 08/24/24 07:25 BP 144/89 H 08/24/24 07:25 Pulse Ox 94 08/24/24 07:25 O2 Del Method Room Air 08/24/24 07:25 BMI result Body Mass Index 31.1 Const General: comfortable and no acute distress Orientation/consciousness: patient oriented x3 HEENT Other: Unremarkable Head: Yes normal to inspection Neck Neck: Yes normal visual inspection Chest Chest palpation & inspection: normal inspection of the chest Resp Auscultation: crackles bilateral at the base Cardio Palpation: normal PMI Heart sounds: S1 normal heart sound present, S2 normal heart sound present, no gallops, no murmurs and no rubs GI Palpation (GI): Soft to palpation Back/Spine/Pelvis Other: unremarkable Skin General skin exam: no rashes or lesions noted Neuro General: patient oriented x3 Extrem Other: 2+ edema General: Yes normal to inspection Psych Mental Status: mental status grossly normal Objective Labs and Meds 08/24/24 06:06 08/24/24 06:06 Lab results: Laboratory Results - last 24 hr 08/23/24 08/23/24 08/23/24 11:49 15:51 20:50 WBC RBC Hgb Hct MCV MCH MCHC RDW Plt Count MPV Immature Gran % (Auto) Neut % (Auto) Lymph % (Auto) [place] % (Auto) Eos % (Auto) Baso % (Auto) Lymph # (Auto) [place] # (Auto) Eos # (Auto) Baso # (Auto) Abs Immat Gran (auto) Absolute Neuts (auto) Absolute Nucleated RBC Nucleated RBC % (auto) Sodium Potassium Chloride Carbon Dioxide Anion Gap BUN Creatinine Estim Creat Clear Calc Estimated GFR POC Glucose 235 H 247 H 166 H Random Glucose Calcium Total Bilirubin AST ALT Alkaline Phosphatase Total Protein Albumin Random Vancomycin 08/24/24 08/24/24 06:06 07:24 WBC 5.6 RBC 4.03 L Hgb 10.9 L Hct 32.7 L MCV 81.1 MCH 27.0 MCHC 33.3 RDW 14.5 Plt Count 141 L MPV 10.9 Immature Gran % (Auto) 0.4 Neut % (Auto) 62.5 Lymph % (Auto) 24.5 [place] % (Auto) 7.9 Eos % (Auto) 4.0 Baso % (Auto) 0.7 Lymph # (Auto) 1.4 [place] # (Auto) 0.4 Eos # (Auto) 0.2 Baso # (Auto) 0.0 Abs Immat Gran (auto) 0.02 Absolute Neuts (auto) 3.5 Absolute Nucleated RBC 0.000 Nucleated RBC % (auto) 0.0 Sodium 141 Potassium 3.4 Chloride 105 Carbon Dioxide 27 Anion Gap 12 BUN 21 H Creatinine 1.21 Estim Creat Clear Calc 93.5 Estimated GFR > 60 POC Glucose 190 H Random Glucose 192 H Calcium 8.1 L Total Bilirubin 0.6 AST 28 ALT 31 Alkaline Phosphatase 81 Total Protein 6.0 L Albumin 2.4 L Random Vancomycin 15.9 Progress Note: A&P Assessment and plan (1) Acute combined systolic and diastolic CHF, NYHA class 3: Status: Acute Plan Per last echocardiogram in April of 2024, LVEF is 28%. Study was repeated yesterday and LVEF is just about the same, 20-25%. Overall, acute on chronic heart failure. He is still volume overloaded and hence we can go up on the diuretic dosing. Also add metolazone. He also has a history of concurrent orthostatic hypotension/syncope and hence very difficult to adjust meds. In the past, he was indeed on Entresto, Jardiance, spironolactone, but everything was stopped because of syncope. Will need to decide how he does and maybe initiate at least Entresto possibly in the future. Time Spent With Patient Time: Total time managing care of this patient today ____ minutes. Progress Note: Quality Stroke Does the patient have a stroke diagnosis?: No Procedures Date of Service Date of Service: 08/24/24
[2024-08-24 11:13] VITALS: BP 143/94; PULSE 93; RESP 18; TEMP 36.5; O2SAT 96
[2024-08-24 11:25] LABS: Glucose, Whole Blood 243 mg/dL (60-115)
--- NOTE | 2024-08-24 12:39 | P.PNIM_ITS ---
Subjective Subjective Date of Service: 08/24/24 Interval History: Still volume overloaded. No respiratory distress Review of Systems Admits to exertional chest pain over the last several days Admits shortness of breath with minimal activity Denies nausea vomiting diarrhea Denies fever chills Physical Exam 2 Vital Signs: Vital Signs: Last Vital Signs Temp 97.7 F 08/24/24 11:13 Pulse 93 08/24/24 11:13 Resp 18 08/24/24 11:13 BP 143/94 H 08/24/24 11:13 Pulse Ox 96 08/24/24 11:13 O2 Del Method Room Air 08/24/24 11:13 BMI result Body Mass Index 31.1 Const: Other: Awake alert no acute distress Resp: Other: Diminished at bases with bilateral basilar crackles noted... No change since admit Cardio: Other: No S4; positive S1-S2; no S3 murmurs rubs or gallops GI: Other: Soft nontender nondistended normoactive bowel sounds Neuro: Other: Cranial nerves 2-12 grossly intact as tested. Motor is 5/5 all extremities. Sensation is intact. Cognition appropriate Extrem: Other: 1+ pitting edema bilaterally. See ER ph otos for assessment of right foot Objective Data Active Medications Acetaminophen (Acetaminophen 325 Mg Tablet) 650 mg PO Q6H PRN PRN Reason: Pain, Mild 1-3,fever,headache Albuterol Sulfate (Albuterol Sulfate 90 Mcg 8 Gm Inhaler) 1 puff INHALE QID PRN PRN Reason: shortness of breath or wheezing Calcium Carbonate (Calcium Carbonate 750 Mg Tab.Chew) 750 mg PO Q4H PRN PRN Reason: Heartburn Carvedilol (Carvedilol 3.125 Mg Tablet) 3.125 mg PO BID [facility]; Protocol Last Admin: 08/24/24 08:44 Dose: 3.125 mg Documented By: MICHELLE Enoxaparin Sodium (Enoxaparin Sodium 40 Mg/0.4 Ml Syringe) 40 mg SUBCUT Q24H [facility] Last Admin: 08/23/24 18:33 Dose: 40 mg Documented By: GOPI Furosemide (Furosemide 40 Mg/4 Ml Vial) 40 mg IVPUSH BID@0900,1800 [facility]; Protocol Last Admin: 08/24/24 08:42 Dose: 40 mg Documented By: MICHELLE Glucose (Glucose Gel 15 Gm Gel..Gram.) 15 gm PO Q15M PRN; Protocol PRN Reason: per Hypoglycemia Standing Ord. Dextrose (D10) 250 mls @ 750 mls/hr IV Q15M PRN; Protocol PRN Reason: per Hypoglycemia Standing Ord. Vancomycin HCl 1,000 mg/ (Sodium Chloride) 270 mls @ 270 mls/hr IV Q12H [facility] Last Infusion: 08/24/24 10:29 Dose: Infused Documented By: MICHELLE Insulin Human Lispro (Insulin Lispro 100 Unit/Ml 3 Ml Vial) 0 unit SUBCUT QIDACHS [facility]; Protocol Last Admin: 08/24/24 11:41 Dose: 4 unit Documented By: MICHELLE Magnesium Hydroxide (Milk Of Magnesia 30 Ml Oral.Susp) 30 ml PO DAILY PRN PRN Reason: Constipation Melatonin (Melatonin 3 Mg Tablet) 6 mg PO BEDTIME PRN PRN Reason: Insomnia Midodrine (Midodrine Hcl 5 Mg Tablet) 5 mg PO TID [facility] Last Admin: 08/24/24 11:10 Dose: Not Given Documented By: MICHELLE Non-Admin Reason: BP high Multivitamins/Vitamin C (Multivitamin Tablet) 1 tab PO DAILY [facility] Last Admin: 08/24/24 08:43 Dose: 1 tab Documented By: MICHELLE Ondansetron HCl (Ondansetron Hcl 4 Mg/2 Ml Vial) 4 mg IVPUSH Q8H PRN PRN Reason: Nausea and Vomiting Pharmacy Consult (Consult Rx Vancomycin Dosing) 1 each MISCELLANE DAILY PRN PRN Reason: Consult order Sodium Chloride (0.9 % Sodium Chloride Flush 3 Ml Syringe) 3 ml IVFLUSH QSHIFT [facility] Last Admin: 08/24/24 08:43 Dose: 3 ml Documented By: MICHELLE Labs 08/24/24 06:06 08/24/24 06:06 Labs: Laboratory Results - last 24 hr 08/23/24 08/23/24 08/24/24 15:51 20:50 06:06 MCV 81.1 MCH 27.0 MCHC 33.3 RDW 14.5 Plt Count 141 L MPV 10.9 Immature Gran % (Auto) 0.4 Neut % (Auto) 62.5 Lymph % (Auto) 24.5 [place] % (Auto) 7.9 Eos % (Auto) 4.0 Baso % (Auto) 0.7 Lymph # (Auto) 1.4 [place] # (Auto) 0.4 Eos # (Auto) 0.2 Baso # (Auto) 0.0 Abs Immat Gran (auto) 0.02 Absolute Neuts (auto) 3.5 Absolute Nucleated RBC 0.000 Nucleated RBC % (auto) 0.0 Anion Gap 12 Estim Creat Clear Calc 93.5 Estimated GFR > 60 POC Glucose 247 H 166 H Random Glucose 192 H Calcium 8.1 L Total Bilirubin 0.6 AST 28 ALT 31 Alkaline Phosphatase 81 Total Protein 6.0 L Albumin 2.4 L Random Vancomycin 15.9 08/24/24 08/24/24 07:24 11:12 MCV MCH MCHC RDW Plt Count MPV Immature Gran % (Auto) Neut % (Auto) Lymph % (Auto) [place] % (Auto) Eos % (Auto) Baso % (Auto) Lymph # (Auto) [place] # (Auto) Eos # (Auto) Baso # (Auto) Abs Immat Gran (auto) Absolute Neuts (auto) Absolute Nucleated RBC Nucleated RBC % (auto) Anion Gap Estim Creat Clear Calc Estimated GFR POC Glucose 190 H 243 H Random Glucose Calcium Total Bilirubin AST ALT Alkaline Phosphatase Total Protein Albumin Random Vancomycin Microbiology Microbiology Results: Microbiology 08/22/24 15:35 Blood Culture - Preliminary Blood - Venous No growth after 24 hours. 08/22/24 15:35 Blood Culture - Preliminary Blood - Venous No growth after 24 hours. Assessment and Plan (1) Cellulitis of foot, right: Status: Acute (2) Chronic combined systolic and diastolic CHF (congestive heart failure): Status: Acute Plan 44-year-old male with a history of diabetes and cardiomyopathy (last echo 05/10/2024 demonstrates EF 28%) has been off diuretics for 3 months presents for fatigue shortness of breath dyspnea on exertion and lower extremity swelling worsening over the last week. He does describe intermittent chest pressure. Workup demonstrates a BNP which is elevated at 641. When further queried he also complains of a callus his right foot that has been worsening over the past several weeks.\ 1. Cellulitis of right foot -vancomycin/Zosyn (3) -surgical consult in a.m. 2. Combined systolic and diastolic congestive heart failure (LVEF 04/2024 28%) -increase IV Lasix to 80 mg b.i.d.will add metolazone dose -continue midodrine/carvedilol as per outpatient dosing -cardiology input appreciated 3. Diabetes type 2 -acceptable control on current therapies -lispro correctional scale... Outpatient Lantus dosing -diabetic diet -adjust as indicated 4. Hypertension -patient states meds adjusted by Dr. Ritter secondary to hypotension -continue outpatient therapies -adjust as indicated -follow renals/divalents Full code Lovenox Patient will require at least 2 midnights going forward of inpatient stay to treat acute systolic and diastolic control her congestive heart failure and IV antibiotics for cellulitis of right foot. This can not be achieved a lesser acute setting Quality Stroke Does the patient have a stroke diagnosis?: No VTE Prior VTE?: No VTE Risk Level:: Medical - moderate - high VTE Device Contraindication: Treatment Not Indicated VTE Drug Contraindication: N/A - Med Ordered
[2024-08-24 15:35] VITALS: BP 145/98; PULSE 93; RESP 16; TEMP 36.3; O2SAT 99
[2024-08-24 16:11] LABS: Glucose, Whole Blood 232 mg/dL (60-115)
[2024-08-24] MEDS: Midodrine HCl 5 MG TABLET PO ×2 (16:33→20:52)
[2024-08-24] MEDS: Enoxaparin Sodium 40 MG/0.4 ML SYRINGE SUBCUT (16:34)
[2024-08-24 20:00] VITALS: BP 146/97; PULSE 98; RESP 18; TEMP 36.3; O2SAT 98
[2024-08-24 21:19] LABS: Glucose, Whole Blood 280 mg/dL (60-115)
[2024-08-24 23:29] VITALS: BP 141/88; PULSE 97; RESP 18; TEMP 36.3; O2SAT 97
[2024-08-25] MEDS: 0.9 % Sodium Chloride Flush 3 ML SYRINGE IVFLUSH ×2 (00:05→16:53)
[2024-08-25 03:27] VITALS: BP 134/84; PULSE 97; RESP 18; TEMP 36.8; O2SAT 94
[2024-08-25 06:16] LABS: MANUAL DIFF FLAG NO
[2024-08-25 06:20] LABS: Basophils Absolute Auto 0.1 X10*3/uL (0.0-0.2); Basophils Percent Auto 0.7 % (0-2); Eosinophils Absolute Auto 0.2 X10*3/uL (0.0-0.4); Eosinophils Percent Auto 3.4 % (0-4); Hematocrit 33.6 % (42.0-52.0); Hemoglobin 11.3 g/dl (14.0-18.0); Imm Gran Abs Auto 0.02 X10*3/uL (0.00-0.03); Imm Gran Pct Auto 0.3 % (0.0-0.4); Lymphocytes Absolute Auto 1.5 X10*3/uL (1.2-4.9); Lymphocytes Percent Auto 22.4 % (20-40); Mean Corpuscular HGB Conc 33.6 g/dl (31.0-36.0); Mean Corpuscular Volume 80.2 fL (80.0-98.0); Mean Platelet Volume 10.2 fL (9.4-12.4); Monocytes Absolute Auto 0.6 X10*3/uL (0.1-1.2); Monocytes Percent Auto 8.5 % (2-11); Neutrophils Absolute Auto 4.4 x10*3/uL (2.0-8.3); Neutrophils Percent Auto 64.7 % (45-73); Platelet Count 134 X10*3/uL (160-400); Red Blood Count 4.19 X10*6/uL (4.60-5.80); Red Cell Distribution Width 14.4 % (11.0-16.0); White Blood Count 6.8 X10*3/uL (4.8-10.8)
[2024-08-25 06:33] LABS: Vancomycin Random 18.7 mcg/mL (15-20)
[2024-08-25 06:37] LABS: Alanine Aminotransferase 23 U/L (0-40); Albumin Level 2.5 g/dL (3.5-5.0); Alkaline Phosphatase 83 U/L (39-117); Anion Gap 12 (12-20); Aspartate Amino Transferase 28 U/L (5-37); Bilirubin Total 0.5 mg/dL (0.0-1.0); Blood Urea Nitrogen 22 mg/dL (9-16); Calcium 8.5 mg/dL (8.4-10.2); Carbon Dioxide 29 mmol/L (22-29); Chloride 103 mmol/L (96-108); Estimated Glomerular Filt Rate 49; Glucose Random 215 mg/dL (60-115); Potassium 3.5 mmol/L (3.3-5.1); Sodium 140 mmol/L (135-145); Total Protein 6.1 g/dL (6.5-8.0)
[2024-08-25 07:39] VITALS: BP 149/87; PULSE 94; RESP 16; TEMP 36.8; O2SAT 96
[2024-08-25 07:45] LABS: Glucose, Whole Blood 196 mg/dL (60-115)
[2024-08-25] MEDS: vancomycin HCL 1,000 MG in 0.9 % Sodium Chloride 250 ML 270 MG IV ×2 (08:08→20:59)
[2024-08-25] MEDS: Furosemide 40 MG/4 ML VIAL IVPUSH ×2 (08:08→11:44)
[2024-08-25] MEDS: Midodrine HCl 5 MG TABLET PO (08:09)
[2024-08-25] MEDS: Insulin Lispro 100 UNIT/ML 3 ML VIAL SUBCUT ×4 (08:10→20:59)
[2024-08-25] MEDS: carvediloL 3.125 MG TABLET PO ×2 (08:10→20:57)
[2024-08-25] MEDS: Multivitamin TABLET 1 TAB PO (08:16)
--- NOTE | 2024-08-25 08:20 | PC.NURSE ---
per patient, cellulitis to r foot does not appear to be improving. WHite callus-like lump to lateral side of foot appears to be getting larger. MD notified, consult to wound care ordered.
--- NOTE | 2024-08-25 08:25 | P.CDIM_ITS ---
PROVIDER RESPONSE TEXT: To clarify, the appropriate diagnosis supported by the clinical indicators: Yes, Cellulitis right foot is related to / associated with / due to DM2 QUERY TEXT: PHYSICIAN'S DOCUMENTATION REQUEST Date of Query: 08/23/2024 09:17 AM EST Patient Name: Mark Humphrey Admit Date: 08/22/2024 Dear Poli Gray DO, A review of the medical record indicates additional documentation may be needed. Please review below and update the documentation accordingly. Documentation includes the conditions of DM2 and Cellulitis of right foot. Clinical Indicators: increased redness and warmth right foot and ankle IV Vancomycin and IV Zosyn Surgical consult pending Please clarify the relationship between these conditions: Yes, Cellulitis right foot is related to / associated with / due to DM2 No, Cellulitis right foot is not related to / associated with / due to DM2 Other (explain) Clinically unable to determine (explain) Thank you, Lindsey Pedraza RN Use of terms such as suspected, likely, concern for, or probable (associated with a specific diagnosi s that is being evaluated, monitored, or treated as if it exists) are acceptable and can be coded in the inpatient se tting, when documented at the time of discharge. Please use your independent medical judgment in providing your response. THIS QUERY IS PART OF THE PERMANENT MEDICAL RECORD
[2024-08-25] MEDS: metOLazone 5 MG TABLET PO ×2 (09:29→20:57)
--- NOTE | 2024-08-25 09:59 | PM.CNGS ---
History of Present Illness Consult details Consult date: 08/25/24 Narrative: 44-year-old male with long history of CHF, ejection fraction 28%, admitted because of shortness of breath on 08/22/2024. He also describes worsening of bilateral lower extremity edema. He says that he had been on Lasix before but this had been discontinued He also has noticed this thick callus on the lateral aspect of the right forefoot. For about a few days prior to admission, he had been noticing redness on the foot as well. He denies any drainage or any ulcer. He is also known diabetic but his blood sugars appeared to have been adequately controlled. Review of Systems Constitutional: Constitutional: Denies chills and Denies fever(s) Cardiovascular: Cardiovascular: Denies chest pain, Reports dyspnea and Reports dyspnea on exertion Respiratory: Respiratory: Denies cough, Reports dyspnea and Reports dyspnea on exertion Gastrointestinal: Gastrointestinal: Denies hematochezia and Denies change in bowel habits Genitourinary: Genitourinary: Denies hematuria and Denies difficulty urinating Musculoskeletal: Musculoskeletal: Denies back pain and Denies limited range of motion Neurologic: Denies focal weakness and Denies convulsions Psychiatric: Psychiatric: Denies depression and Denies mood swings PMFSH Past Medical History Medical History (Updated 08/25/24 @ 10:02 by Matt Bettencourt MD) Cellulitis of foot Chronic combined systolic and diastolic CHF (congestive heart failure) Palpitation JOLIE (generalized anxiety disorder) MDD (major depressive disorder), recurrent episode, moderate Diabetic foot ulcer Cardiomyopathy Alcohol use disorder in remission HTN (hypertension) DMII (diabetes mellitus, type 2) CHF (congestive heart failure) Small bowel obstruction Hx of intestinal obstruction Foot callus Erectile disorder due to medical condition in male patient Knee pain, right Family History Family History Mother Diabetes High blood pressure Surgical History Surgical History Hx of esophagogastroduodenoscopy History of appendectomy History of hernia surgery Social History Social History Household Members: Spouse, Family and Children Household Members Other:: three kids and Housing: House Do you presently have visiting nurse or other home services: No Alcohol intake: never Patient Tobacco Use Status: Never used Tobacco e-Cigarette/Vaping Use: Never Used Second Hand Smoke Exposure: No Advance Directives Date on File: 12/16/23 service: No Current occupational status: employed Current occupation: right handed Cognitive needs: No Hearing needs: No Vision needs: No Meds Allergies Allergy/AdvReac Type Severity Reaction Status Date / Time metformin AdvReac Intermediate GI side Verified 08/22/24 10:21 effects Active Medications: Current Medications Acetaminophen (Acetaminophen 325 Mg Tablet) 650 mg PO Q6H PRN PRN Reason: Pain, Mild 1-3,fever,headache Albuterol Sulfate (Albuterol Sulfate 90 Mcg 8 Gm Inhaler) 1 puff INHALE QID PRN PRN Reason: shortness of breath or wheezing Calcium Carbonate (Calcium Carbonate 750 Mg Tab.Chew) 750 mg PO Q4H PRN PRN Reason: Heartburn Carvedilol (Carvedilol 3.125 Mg Tablet) 3.125 mg PO BID [facility]; Protocol Last Admin: 08/25/24 08:10 Dose: 3.125 mg Enoxaparin Sodium (Enoxaparin Sodium 40 Mg/0.4 Ml Syringe) 40 mg SUBCUT Q24H [facility] Last Admin: 08/24/24 16:34 Dose: 40 mg Furosemide (Furosemide 40 Mg/4 Ml Vial) 40 mg IVPUSH BID@0900,1800 [facility]; Protocol Last Admin: 08/25/24 08:08 Dose: 40 mg Glucose (Glucose Gel 15 Gm Gel..Gram.) 15 gm PO Q15M PRN; Protocol PRN Reason: per Hypoglycemia Standing Ord. Dextrose (D10) 250 mls @ 750 mls/hr IV Q15M PRN; Protocol PRN Reason: per Hypoglycemia Standing Ord. Vancomycin HCl 1,000 mg/ (Sodium Chloride) 270 mls @ 270 mls/hr IV Q12H [facility] Last Infusion: 08/25/24 09:27 Dose: Infused Insulin Human Lispro (Insulin Lispro 100 Unit/Ml 3 Ml Vial) 0 unit SUBCUT QIDACHS [facility]; Protocol Last Admin: 08/25/24 08:10 Dose: 2 unit Magnesium Hydroxide (Milk Of Magnesia 30 Ml Oral.Susp) 30 ml PO DAILY PRN PRN Reason: Constipation Melatonin (Melatonin 3 Mg Tablet) 6 mg PO BEDTIME PRN PRN Reason: Insomnia Midodrine (Midodrine Hcl 5 Mg Tablet) 5 mg PO TID [facility] Last Admin: 08/25/24 08:09 Dose: 5 mg Multivitamins/Vitamin C (Multivitamin Tablet) 1 tab PO DAILY [facility] Last Admin: 08/25/24 08:16 Dose: 1 tab Ondansetron HCl (Ondansetron Hcl 4 Mg/2 Ml Vial) 4 mg IVPUSH Q8H PRN PRN Reason: Nausea and Vomiting Pharmacy Consult (Consult Rx Vancomycin Dosing) 1 each MISCELLANE DAILY PRN PRN Reason: Consult order Sodium Chloride (0.9 % Sodium Chloride Flush 3 Ml Syringe) 3 ml IVFLUSH QSHIFT [facility] Last Admin: 08/25/24 09:27 Dose: Not Given Home Medications ?Medication ?Instructions ?Recorded ?Confirmed ?Last Taken ?Type multivitamin 1 tab PO DAILY 02/16/24 08/22/24 08/21/24 History carvedilol 3.125 mg tablet 3.125 mg PO BID 05/09/24 08/22/24 08/21/24 History insulin lispro 100 unit/mL See Protocol subcut TIDAC 08/22/24 08/22/24 08/21/24 History subcutaneous pen Physical Exam Vital Signs: Vital Signs: Last Vital Signs Temp 98.2 F 08/25/24 07:39 Pulse 94 08/25/24 07:39 Resp 16 08/25/24 07:39 BP 149/87 H 08/25/24 07:39 Pulse Ox 96 08/25/24 07:39 O2 Del Method Room Air 08/25/24 07:39 BMI result Body Mass Index 31.1 Const: General: comfortable and no acute distress Orientation/consciousness: patient oriented x3 Neck: Neck: Yes no lymphadenopathy Resp: Auscultation: clear to auscultation bilaterally Cardio: Rhythm: regular rhythm GI: Palpation (GI): Soft to palpation, nontender and no guarding Neuro: General: patient oriented x3 Extrem: Other: Right foot on the lateral aspect and the dorsum is note of some redness diffusely without any fluctuance, induration, or open wound or ulcer. There was note of a very thick callus on the lateral aspect of the forefoot near the metatarsal phalangeal joint. This thick callus is about 3 cm in widest dimension with no open ulcer or discharge Results Labs 08/26/24 06:43 08/26/24 06:43 Labs: Abnormal lab results 08/24/24 08/24/24 08/24/24 Range/Units 11:12 16:07 21:10 RBC (4.60-5.80) X10*6/uL Hgb (14.0-18.0) g/dl Hct (42.0-52.0) % Plt Count (160-400) X10*3/uL BUN (9-16) mg/dL Creatinine (0.5-1.4) mg/dL POC Glucose 243 H 232 H 280 H (60-115) mg/dL Random Glucose (60-115) mg/dL Total Protein (6.5-8.0) g/dL Albumin (3.5-5.0) g/dL 08/25/24 08/25/24 Range/Units 06:11 07:38 RBC 4.19 L (4.60-5.80) X10*6/uL Hgb 11.3 L (14.0-18.0) g/dl Hct 33.6 L (42.0-52.0) % Plt Count 134 L (160-400) X10*3/uL BUN 22 H (9-16) mg/dL Creatinine 1.57 H (0.5-1.4) mg/dL POC Glucose 196 H (60-115) mg/dL Random Glucose 215 H (60-115) mg/dL Total Protein 6.1 L (6.5-8.0) g/dL Albumin 2.5 L (3.5-5.0) g/dL Short CBC 08/25/24 Range/Units 06:11 WBC 6.8 (4.8-10.8) X10*3/uL Hgb 11.3 L (14.0-18.0) g/dl Hct 33.6 L (42.0-52.0) % Plt Count 134 L (160-400) X10*3/uL BMP 08/25/24 06:11 Sodium 140 Potassium 3.5 Chloride 103 Carbon Dioxide 29 BUN 22 H Creatinine 1.57 H Calcium 8.5 Liver Function 08/25/24 Range/Units 06:11 Total Bilirubin 0.5 (0.0-1.0) mg/dL AST 28 (5-37) U/L ALT 23 (0-40) U/L Alkaline Phosphatase 83 (39-117) U/L Albumin 2.5 L (3.5-5.0) g/dL Urine 08/22/24 Range/Units 16:28 Urine Color Yellow Urine Appearance Clear Urine pH 5.5 (5.0-9.0) Ur Specific [place] 1.010 (1.005-1.025) Urine Protein 300 (3+) H (Neg-Trace) mg/dL Urine Glucose (UA) Negative (Negative) mg/dL All other labs normal. Assessment and Plan (1) Cellulitis of foot: Status: Acute He has this area of redness diffusely on the right foot as described above. There is no open wound or any ulcer. There was no discharge. He does have a thick callus at the lateral aspect of the forefoot as described above I do not see any area that needs to be drained at this time. He may be continued on antibiotics for now. There is no indication for surgical intervention currently. I will follow along while he is in the hospital. He is currently being managed for his CHF with cardiomyopathy. I have emphasized to him the importance of good blood sugar control as well. Procedures Date of Service Date of Service: 08/26/24
--- NOTE | 2024-08-25 10:57 | PM.PNCARD ---
Subjective Subjective Date of Service: 08/25/24 Interval history: He is still volume overloaded. Not much of improvement. Review of Systems Review of Systems Admits to exertional chest pain over the last several days Admits shortness of breath with minimal activity Denies nausea vomiting diarrhea Denies fever chills Yes all other systems are reviewed and are negative Constitutional: Reports as per HPI and Reports no additional constitutional complaints Eyes: Reports as per HPI and Denies no additional eye complaints Denies system reviewed and no additional complaints, except as documented and Reports as per HPI Cardiovascular: Reports as per HPI, Reports no additional cardiovascular complaints, Denies acrocyanosis, Denies cool extremities, Denies chest pain, Reports leg edema, Denies lightheadedness, Denies palpitations and Reports dyspnea Respiratory: Reports as per HPI, Denies no additional respiratory complaints and Reports dyspnea Gastrointestinal: Reports as per HPI and Denies no additional gastrointestinal complaints Genitourinary: Reports no additional male genitourinary complaints and Reports as per HPI Musculoskeletal: Reports no additional musculoskeletal complaints and Reports as per HPI Skin/Breast: Reports system reviewed and no additional complaints, except as docu Reports system reviewed and no additional complaints, except as documented and Reports as per HPI Psychiatric: Reports no additional psychiatric complaints and Reports as per HPI Endocrine: Reports no additional endocrine complaints, Reports as per HPI and Denies palpitations Hematologic/Lymphatic: Reports no additional hematologic/lymphatic complaints and Reports as per HPI Allergic/Immunologic: Reports no additional allergic/immunologic complaints and Reports as per HPI Physical Exam Vital Signs: Last Vital Signs Temp 98.2 F 08/25/24 07:39 Pulse 94 08/25/24 07:39 Resp 16 08/25/24 07:39 BP 149/87 H 08/25/24 07:39 Pulse Ox 96 08/25/24 07:39 O2 Del Method Room Air 08/25/24 07:39 BMI result Body Mass Index 31.1 Const General: comfortable and no acute distress Orientation/consciousness: patient oriented x3 HEENT Other: Unremarkable Head: Yes normal to inspection Neck Neck: Yes normal visual inspection Chest Chest palpation & inspection: normal inspection of the chest Resp Auscultation: crackles bilateral at the base Cardio Palpation: normal PMI Heart sounds: S1 normal heart sound present, S2 normal heart sound present, no gallops, no murmurs and no rubs GI Palpation (GI): Soft to palpation Back/Spine/Pelvis Other: unremarkable Skin General skin exam: no rashes or lesions noted Neuro General: patient oriented x3 Extrem Other: 2+ edema General: Yes normal to inspection Psych Mental Status: mental status grossly normal Objective Labs and Meds 08/25/24 06:11 08/25/24 06:11 Lab results: Laboratory Results - last 24 hr 08/24/24 08/24/24 08/24/24 11:12 16:07 21:10 WBC RBC Hgb Hct MCV MCH MCHC RDW Plt Count MPV Immature Gran % (Auto) Neut % (Auto) Lymph % (Auto) [place] % (Auto) Eos % (Auto) Baso % (Auto) Lymph # (Auto) [place] # (Auto) Eos # (Auto) Baso # (Auto) Abs Immat Gran (auto) Absolute Neuts (auto) Absolute Nucleated RBC Nucleated RBC % (auto) Sodium Potassium Chloride Carbon Dioxide Anion Gap BUN Creatinine Estim Creat Clear Calc Estimated GFR POC Glucose 243 H 232 H 280 H Random Glucose Calcium Total Bilirubin AST ALT Alkaline Phosphatase Total Protein Albumin Random Vancomycin 08/25/24 08/25/24 06:11 07:38 WBC 6.8 RBC 4.19 L Hgb 11.3 L Hct 33.6 L MCV 80.2 MCH 27.0 MCHC 33.6 RDW 14.4 Plt Count 134 L MPV 10.2 Immature Gran % (Auto) 0.3 Neut % (Auto) 64.7 Lymph % (Auto) 22.4 [place] % (Auto) 8.5 Eos % (Auto) 3.4 Baso % (Auto) 0.7 Lymph # (Auto) 1.5 [place] # (Auto) 0.6 Eos # (Auto) 0.2 Baso # (Auto) 0.1 Abs Immat Gran (auto) 0.02 Absolute Neuts (auto) 4.4 Absolute Nucleated RBC 0.000 Nucleated RBC % (auto) 0.0 Sodium 140 Potassium 3.5 Chloride 103 Carbon Dioxide 29 Anion Gap 12 BUN 22 H Creatinine 1.57 H Estim Creat Clear Calc 72.0 Estimated GFR 49 POC Glucose 196 H Random Glucose 215 H Calcium 8.5 Total Bilirubin 0.5 AST 28 ALT 23 Alkaline Phosphatase 83 Total Protein 6.1 L Albumin 2.5 L Random Vancomycin 18.7 Progress Note: A&P Assessment and plan (1) Acute combined systolic and diastolic CHF, NYHA class 3: Status: Acute Plan Per last echocardiogram in April of 2024, LVEF is 28%. Study was repeated this admission and LVEF is just about the same, 20-25%. Overall, acute on chronic heart failure. Increase Lasix to 80 mg b.i.d.. Discussed with Dr. Gray. Give another dose of Metolazone. Renal function has gone up slightly but we can monitor that. He also has a history of concurrent orthostatic hypotension/syncope and hence difficult to adjust meds. In the past, he was indeed on Entresto, Jardiance, spironolactone, but everything was stopped because of syncope. Will need to decide how he does and maybe initiate at least Entresto possibly in the future. His blood pressure is indeed on the higher side and hence we can cut back on the midodrine or hold it and see how he does. We will follow up with you. Time Spent With Patient Time: Total time managing care of this patient today ____ minutes. Progress Note: Quality Stroke Does the patient have a stroke diagnosis?: No Procedures Date of Service Date of Service: 08/25/24
[2024-08-25 11:16] LABS: Glucose, Whole Blood 234 mg/dL (60-115)
[2024-08-25 11:20] VITALS: BP 157/86; PULSE 95; RESP 16; TEMP 36.4; O2SAT 98
[2024-08-25] MEDS: Piperacillin Sodium/Tazobactam 3.375 GM in 0.9 % Sodium Chloride 50 ML IV ×3 (11:44→22:17)
--- NOTE | 2024-08-25 13:46 | MHC.CM.PN ---
Per rounds, pt. is not ready to DC, he requires ongoing care for CHF and is on IV ABX for cellulitis of foot. CM to follow for DC needs.
--- NOTE | 2024-08-25 13:49 | HO.PM.IMPN ---
Subjective Subjective Date of Service: 08/25/24 Interval History: Still examines volume overloaded. No chest pain noted overnight Review of Systems Admits to exertional chest pain over the last several days Admits shortness of breath with minimal activity Denies nausea vomiting diarrhea Denies fever chills Physical Exam Vital Signs: Vital Signs: Last Vital Signs Temp 97.6 F 08/25/24 11:20 Pulse 95 08/25/24 11:20 Resp 16 08/25/24 11:20 BP 157/86 H 08/25/24 11:20 Pulse Ox 98 08/25/24 11:20 O2 Del Method Room Air 08/25/24 11:20 BMI result Body Mass Index 31.1 Const: Other: Awake alert no acute distress Resp: Other: Diminished at bases with bilateral basilar crackles noted... No change since admit Cardio: Other: No S4; positive S1-S2; no S3 murmurs rubs or gallops GI: Other: Soft nontender nondistended normoactive bowel sounds Neuro: Other: Cranial nerves 2-12 grossly intact as tested. Motor is 5/5 all extremities. Sensation is intact. Cognition appropriate Extrem: Other: 1+ pitting edema bilaterally. See ER photos for assessment of right foot Objective Data Active Medications Acetaminophen (Acetaminophen 325 Mg Tablet) 650 mg PO Q6H PRN PRN Reason: Pain, Mild 1-3,fever,headache Albuterol Sulfate (Albuterol Sulfate 90 Mcg 8 Gm Inhaler) 1 puff INHALE QID PRN PRN Reason: shortness of breath or wheezing Calcium Carbonate (Calcium Carbonate 750 Mg Tab.Chew) 750 mg PO Q4H PRN PRN Reason: Heartburn Carvedilol (Carvedilol 3.125 Mg Tablet) 3.125 mg PO BID [facility]; Protocol Last Admin: 08/25/24 08:10 Dose: 3.125 mg Documented By: MICHELLE Enoxaparin Sodium (Enoxaparin Sodium 40 Mg/0.4 Ml Syringe) 40 mg SUBCUT Q24H [facility] Last Admin: 08/24/24 16:34 Dose: 40 mg Documented By: MICHELLE Furosemide (Furosemide 100 Mg/10 Ml Vial) 80 mg IVPUSH BID@0900,1800 [facility]; Protocol Glucose (Glucose Gel 15 Gm Gel..Gram.) 15 gm PO Q15M PRN; Protocol PRN Reason: per Hypoglycemia Standing Ord. Dextrose (D10) 250 mls @ 750 mls/hr IV Q15M PRN; Protocol PRN Reason: per Hypoglycemia Standing Ord. Vancomycin HCl 1,000 mg/ (Sodium Chloride) 270 mls @ 270 mls/hr IV Q12H [facility] Last Infusion: 08/25/24 09:27 Dose: Infused Documented By: MICHELLE Piperacillin Sod/Tazobactam (Sod 3.375 gm/ Sodium Chloride) 50 mls @ 100 mls/hr IV Q6H [facility] Last Infusion: 08/25/24 13:40 Dose: Infused Documented By: MICHELLE Insulin Human Lispro (Insulin Lispro 100 Unit/Ml 3 Ml Vial) 0 unit SUBCUT QIDACHS [facility]; Protocol Last Admin: 08/25/24 11:45 Dose: 4 unit Documented By: MICHELLE Magnesium Hydroxide (Milk Of Magnesia 30 Ml Oral.Susp) 30 ml PO DAILY PRN PRN Reason: Constipation Melatonin (Melatonin 3 Mg Tablet) 6 mg PO BEDTIME PRN PRN Reason: Insomnia Metolazone (Metolazone 5 Mg Tablet) 5 mg PO ONCE ONE Stop: 08/25/24 19:01 Multivitamins/Vitamin C (Multivitamin Tablet) 1 tab PO DAILY [facility] Last Admin: 08/25/24 08:16 Dose: 1 tab Documented By: MICHELLE Ondansetron HCl (Ondansetron Hcl 4 Mg/2 Ml Vial) 4 mg IVPUSH Q8H PRN PRN Reason: Nausea and Vomiting Pharmacy Consult (Consult Rx Vancomycin Dosing) 1 each MISCELLANE DAILY PRN PRN Reason: Consult order Sodium Chloride (0.9 % Sodium Chloride Flush 3 Ml Syringe) 3 ml IVFLUSH QSHIFT [facility] Last Admin: 08/25/24 09:27 Dose: Not Given Documented By: MICHELLE Non-Admin Reason: See Note Labs 08/25/24 06:11 08/25/24 06:11 Labs: Laboratory Results - last 24 hr 08/24/24 08/24/24 08/25/24 16:07 21:10 06:11 MCV 80.2 MCH 27.0 MCHC 33.6 RDW 14.4 Plt Count 134 L MPV 10.2 Immature Gran % (Auto) 0.3 Neut % (Auto) 64.7 Lymph % (Auto) 22.4 [place] % (Auto) 8.5 Eos % (Auto) 3.4 Baso % (Auto) 0.7 Lymph # (Auto) 1.5 [place] # (Auto) 0.6 Eos # (Auto) 0.2 Baso # (Auto) 0.1 Abs Immat Gran (auto) 0.02 Absolute Neuts (auto) 4.4 Absolute Nucleated RBC 0.000 Nucleated RBC % (auto) 0.0 Anion Gap 12 Estim Creat Clear Calc 72.0 Estimated GFR 49 POC Glucose 232 H 280 H Random Glucose 215 H Calcium 8.5 Total Bilirubin 0.5 AST 28 ALT 23 Alkaline Phosphatase 83 Total Protein 6.1 L Albumin 2.5 L Random Vancomycin 18.7 08/25/24 08/25/24 07:38 11:11 MCV MCH MCHC RDW Plt Count MPV Immature Gran % (Auto) Neut % (Auto) Lymph % (Auto) [place] % (Auto) Eos % (Auto) Baso % (Auto) Lymph # (Auto) [place] # (Auto) Eos # (Auto) Baso # (Auto) Abs Immat Gran (auto) Absolute Neuts (auto) Absolute Nucleated RBC Nucleated RBC % (auto) Anion Gap Estim Creat Clear Calc Estimated GFR POC Glucose 196 H 234 H Random Glucose Calcium Total Bilirubin AST ALT Alkaline Phosphatase Total Protein Albumin Random Vancomycin Microbiology Microbiology Results: Microbiology 08/22/24 15:35 Blood Culture - Preliminary Blood - Venous No growth after 48 hours. 08/22/24 15:35 Blood Culture - Preliminary Blood - Venous No growth after 48 hours. Assessment and Plan (1) Cellulitis of foot: Status: Acute (2) Acute combined systolic and diastolic CHF, NYHA class 3: Status: Acute Plan 44-year-old male with a history of diabetes and cardiomyopathy (last echo 05/10/2024 demonstrates EF 28%) has been off diuretics for 3 months presents for fatigue shortness of breath dyspnea on exertion and lower extremity swelling worsening over the last week. He does describe intermittent chest pressure. Workup demonstrates a BNP which is elevated at 641. When further queried he also complains of a callus his right foot that has been worsening over the past several weeks.\ 1. Cellulitis of right foot -vancomycin/Zosyn (4) -surgical consult appreciated 2. Combined systolic and diastolic congestive heart failure (LVEF 04/2024 28%) -increase IV Lasix to 80 mg b.i.d.will add metolazone dose this pm -d/c midodrine -cardiology input appreciated 3. Diabetes type 2 -acceptable control on current therapies -lispro correctional scale... Outpatient Lantus dosing -diabetic diet -adjust as indicated 4. Hypertension -DC midodrine as Cardiology advised -further therapies as per Cardiology -follow renals/divalents Full code Lovenox Patient will require ongoing hospitalization for further diuresis to treat acute CHF Quality Stroke Does the patient have a stroke diagnosis?: No VTE Prior VTE?: No VTE Risk Level:: Medical - moderate - high VTE Device Contraindication: Treatment Not Indicated VTE Drug Contraindication: N/A - Med Ordered
[2024-08-25 15:53] VITALS: BP 151/98; PULSE 96; RESP 20; TEMP 35.6; O2SAT 98
[2024-08-25 16:22] LABS: Glucose, Whole Blood 271 mg/dL (60-115)
[2024-08-25] MEDS: Enoxaparin Sodium 40 MG/0.4 ML SYRINGE SUBCUT (17:12)
[2024-08-25 18:45] VITALS: BP 128/80
[2024-08-25] MEDS: Furosemide 100 MG/10 ML VIAL 80 MG IVPUSH (18:45)
[2024-08-25 19:46] VITALS: BP 137/87; PULSE 97; RESP 16; TEMP 37.1; O2SAT 96
[2024-08-25 20:33] LABS: Glucose, Whole Blood 272 mg/dL (60-115)
[2024-08-26] VITALS (7 sets, daily range): BP systolic 131–145; BP diastolic 66–92; PULSE 58–99; RESP 16–18; TEMP 36.2–37.2; O2SAT 92–98
[2024-08-26] MEDS: 0.9 % Sodium Chloride Flush 3 ML SYRINGE IVFLUSH ×4 (00:01→20:08)
[2024-08-26] MEDS: Piperacillin Sodium/Tazobactam 3.375 GM in 0.9 % Sodium Chloride 50 ML IV (03:46)
[2024-08-26 07:19] LABS: MANUAL DIFF FLAG NO
[2024-08-26 07:23] LABS: Basophils Absolute Auto 0.1 X10*3/uL (0.0-0.2); Basophils Percent Auto 0.8 % (0-2); Eosinophils Absolute Auto 0.3 X10*3/uL (0.0-0.4); Eosinophils Percent Auto 3.2 % (0-4); Hematocrit 32.6 % (42.0-52.0); Hemoglobin 11.2 g/dl (14.0-18.0); Imm Gran Abs Auto 0.03 X10*3/uL (0.00-0.03); Imm Gran Pct Auto 0.4 % (0.0-0.4); Lymphocytes Absolute Auto 1.8 X10*3/uL (1.2-4.9); Lymphocytes Percent Auto 22.3 % (20-40); Mean Corpuscular HGB Conc 34.4 g/dl (31.0-36.0); Mean Corpuscular Hemoglobin 27.1 pg (27.0-33.0); Mean Corpuscular Volume 78.9 fL (80.0-98.0); Mean Platelet Volume 10.1 fL (9.4-12.4); Monocytes Absolute Auto 0.7 X10*3/uL (0.1-1.2); Monocytes Percent Auto 8.4 % (2-11); Neutrophils Absolute Auto 5.1 x10*3/uL (2.0-8.3); Neutrophils Percent Auto 64.9 % (45-73); Platelet Count 148 X10*3/uL (160-400); Red Blood Count 4.13 X10*6/uL (4.60-5.80); Red Cell Distribution Width 14.1 % (11.0-16.0); White Blood Count 7.9 X10*3/uL (4.8-10.8)
[2024-08-26 07:39] LABS: Vancomycin Random 23.9 mcg/mL (15-20)
[2024-08-26 07:40] LABS: Alanine Aminotransferase 22 U/L (0-40); Albumin Level 2.5 g/dL (3.5-5.0); Alkaline Phosphatase 82 U/L (39-117); Anion Gap 9 (12-20); Aspartate Amino Transferase 27 U/L (5-37); Bilirubin Total 0.6 mg/dL (0.0-1.0); Blood Urea Nitrogen 24 mg/dL (9-16); Calcium 8.1 mg/dL (8.4-10.2); Carbon Dioxide 34 mmol/L (22-29); Chloride 99 mmol/L (96-108); Creatinine Clr Calc Pharmacy 53.3; Estimated Glomerular Filt Rate 34; Glucose Fasting 270 mg/dL (60-99); Potassium 3.4 mmol/L (3.3-5.1); Sodium 139 mmol/L (135-145); Total Protein 6.5 g/dL (6.5-8.0)
[2024-08-26 07:52] LABS: Glucose, Whole Blood 273 mg/dL (60-115)
[2024-08-26] MEDS: carvediloL 3.125 MG TABLET PO ×2 (08:18→20:08)
[2024-08-26] MEDS: Furosemide 100 MG/10 ML VIAL 80 MG IVPUSH (08:18)
[2024-08-26] MEDS: Multivitamin TABLET 1 TAB PO (08:18)
[2024-08-26] MEDS: Doxycycline Monohydrate 100 MG CAPSULE PO ×2 (08:56→20:08)
[2024-08-26] MEDS: Amoxicillin/Potassium Clav 875 MG TABLET PO ×2 (08:56→20:08)
[2024-08-26 08:57] LABS: C Reactive Protein 2.46 mg/dL (< or = 0.50)
--- NOTE | 2024-08-26 09:20 | PM.PNGS ---
Subjective Subjective Date of Service: 08/26/24 Interval history: No new complaints Denies pain on the right foot Physical Exam Vital Signs: Vital Signs: Last Vital Signs Temp 98.5 F 08/26/24 07:55 Pulse 91 08/26/24 07:55 Resp 18 08/26/24 07:55 BP 145/90 H 08/26/24 07:55 Pulse Ox 96 08/26/24 07:55 O2 Del Method Room Air 08/26/24 07:55 BMI result Body Mass Index 31.1 Const: General: comfortable and no acute distress Resp: Effort & Inspection: normal respiratory effort Cardio: Rate: regular rate Extrem: Other: Still with some redness on the right foot as described yesterday, no fluctuance, no increase in area of cellulitis, no discharge, no induration Objective Data Active Medications Acetaminophen (Acetaminophen 325 Mg Tablet) 650 mg PO Q6H PRN PRN Reason: Pain, Mild 1-3,fever,headache Albuterol Sulfate (Albuterol Sulfate 90 Mcg 8 Gm Inhaler) 1 puff INHALE QID PRN PRN Reason: shortness of breath or wheezing Amoxicillin/Clavulanate Potassium (Amoxicillin/Potassium Clav 875 Mg Tablet) 875 mg PO Q12H [facility] Last Admin: 08/26/24 08:56 Dose: 875 mg Documented By: ZAN Calcium Carbonate (Calcium Carbonate 750 Mg Tab.Chew) 750 mg PO Q4H PRN PRN Reason: Heartburn Carvedilol (Carvedilol 3.125 Mg Tablet) 3.125 mg PO BID [facility]; Protocol Last Admin: 08/26/24 08:18 Dose: 3.125 mg Documented By: ZAN Doxycycline Monohydrate (Doxycycline Monohydrate 100 Mg Capsule) 100 mg PO Q12H [facility] Last Admin: 08/26/24 08:56 Dose: 100 mg Documented By: ZAN Enoxaparin Sodium (Enoxaparin Sodium 40 Mg/0.4 Ml Syringe) 40 mg SUBCUT Q24H [facility] Last Admin: 08/25/24 17:12 Dose: 40 mg Documented By: HEVER Furosemide (Furosemide 100 Mg/10 Ml Vial) 80 mg IVPUSH BID@0900,1800 [facility]; Protocol Last Admin: 08/26/24 08:18 Dose: 80 mg Documented By: ZAN Glucose (Glucose Gel 15 Gm Gel..Gram.) 15 gm PO Q15M PRN; Protocol PRN Reason: per Hypoglycemia Standing Ord. Dextrose (D10) 250 mls @ 750 mls/hr IV Q15M PRN; Protocol PRN Reason: per Hypoglycemia Standing Ord. Insulin Human Lispro (Insulin Lispro 100 Unit/Ml 3 Ml Vial) 0 unit SUBCUT QIDACHS [facility]; Protocol Last Admin: 08/26/24 08:14 Dose: Not Given Documented By: ZAN Non-Admin Reason: No Insulin Coverage Magnesium Hydroxide (Milk Of Magnesia 30 Ml Oral.Susp) 30 ml PO DAILY PRN PRN Reason: Constipation Melatonin (Melatonin 3 Mg Tablet) 6 mg PO BEDTIME PRN PRN Reason: Insomnia Multivitamins/Vitamin C (Multivitamin Tablet) 1 tab PO DAILY [facility] Last Admin: 08/26/24 08:18 Dose: 1 tab Documented By: ZAN Ondansetron HCl (Ondansetron Hcl 4 Mg/2 Ml Vial) 4 mg IVPUSH Q8H PRN PRN Reason: Nausea and Vomiting Sodium Chloride (0.9 % Sodium Chloride Flush 3 Ml Syringe) 3 ml IVFLUSH QSHIFT [facility] Last Admin: 08/26/24 08:22 Dose: 3 ml Documented By: ZAN Labs 08/26/24 06:43 08/26/24 06:43 Labs: Laboratory Results - last 24 hr 08/25/24 08/25/24 08/25/24 11:11 16:16 20:11 MCV MCH MCHC RDW Plt Count MPV Immature Gran % (Auto) Neut % (Auto) Lymph % (Auto) [place] % (Auto) Eos % (Auto) Baso % (Auto) Lymph # (Auto) [place] # (Auto) Eos # (Auto) Baso # (Auto) Abs Immat Gran (auto) Absolute Neuts (auto) Absolute Nucleated RBC Nucleated RBC % (auto) Anion Gap Estim Creat Clear Calc Estimated GFR POC Glucose 234 H 271 H 272 H Fasting Glucose Calcium Total Bilirubin AST ALT Alkaline Phosphatase C-Reactive Protein Total Protein Albumin Random Vancomycin 08/26/24 08/26/24 06:43 07:47 MCV 78.9 L MCH 27.1 MCHC 34.4 RDW 14.1 Plt Count 148 L MPV 10.1 Immature Gran % (Auto) 0.4 Neut % (Auto) 64.9 Lymph % (Auto) 22.3 [place] % (Auto) 8.4 Eos % (Auto) 3.2 Baso % (Auto) 0.8 Lymph # (Auto) 1.8 [place] # (Auto) 0.7 Eos # (Auto) 0.3 Baso # (Auto) 0.1 Abs Immat Gran (auto) 0.03 Absolute Neuts (auto) 5.1 Absolute Nucleated RBC 0.000 Nucleated RBC % (auto) 0.0 Anion Gap 9 L Estim Creat Clear Calc 53.3 Estimated GFR 34 POC Glucose 273 H Fasting Glucose 270 H Calcium 8.1 L Total Bilirubin 0.6 AST 27 ALT 22 Alkaline Phosphatase 82 C-Reactive Protein 2.46 H Total Protein 6.5 Albumin 2.5 L Random Vancomycin 23.9 H Procedures Date of Service Date of Service: 08/26/24 Progress Note: A&P Assessment and plan (1) Cellulitis of foot, right: Status: Acute Assessment and Plan: No increased in cellulitis He looks well clinically Continue current care No I&D necessary at this time We will continue to follow Time Spent With Patient Time: Total time managing care of this patient today ____ minutes. Quality Stroke Does the patient have a stroke diagnosis?: No VTE Prior VTE?: No VTE Risk Level:: Medical - moderate - high VTE Device Contraindication: Treatment Not Indicated VTE Drug Contraindication: N/A - Med Ordered
--- NOTE | 2024-08-26 10:29 | PM.PNCARD ---
Subjective Subjective Date of Service: 08/26/24 Interval history: Patient states that he is slightly better. He is diuresing but the input/output charting is not clearly recorded. Review of Systems Review of Systems Yes all other systems are reviewed and are negative Constitutional: Reports as per HPI and Reports no additional constitutional complaints Eyes: Reports as per HPI and Denies no additional eye complaints Denies system reviewed and no additional complaints, except as documented and Reports as per HPI Cardiovascular: Reports as per HPI, Reports no additional cardiovascular complaints, Denies acrocyanosis, Denies cool extremities, Denies chest pain, Reports leg edema, Denies lightheadedness, Denies palpitations and Reports dyspnea Respiratory: Reports as per HPI, Denies no additional respiratory complaints and Reports dyspnea Gastrointestinal: Reports as per HPI and Denies no additional gastrointestinal complaints Genitourinary: Reports no additional male genitourinary complaints and Reports as per HPI Musculoskeletal: Reports no additional musculoskeletal complaints and Reports as per HPI Skin/Breast: Reports system reviewed and no additional complaints, except as docu Reports system reviewed and no additional complaints, except as documented and Reports as per HPI Psychiatric: Reports no additional psychiatric complaints and Reports as per HPI Endocrine: Reports no additional endocrine complaints, Reports as per HPI and Denies palpitations Hematologic/Lymphatic: Reports no additional hematologic/lymphatic complaints and Reports as per HPI Allergic/Immunologic: Reports no additional allergic/immunologic complaints and Reports as per HPI Physical Exam Vital Signs: Last Vital Signs Temp 98.5 F 08/26/24 07:55 Pulse 91 08/26/24 07:55 Resp 18 08/26/24 07:55 BP 145/90 H 08/26/24 07:55 Pulse Ox 96 08/26/24 07:55 O2 Del Method Room Air 08/26/24 07:55 BMI result Body Mass Index 31.1 Const General: comfortable and no acute distress Orientation/consciousness: patient oriented x3 HEENT Other: Unremarkable Head: Yes normal to inspection Neck Neck: Yes normal visual inspection Chest Chest palpation & inspection: normal inspection of the chest Resp Auscultation: crackles bilateral at the base Cardio Palpation: normal PMI Heart sounds: S1 normal heart sound present, S2 normal heart sound present, no gallops, no murmurs and no rubs GI Palpation (GI): Soft to palpation Back/Spine/Pelvis Other: unremarkable Skin General skin exam: no rashes or lesions noted Neuro General: patient oriented x3 Extrem Other: 2+ edema General: Yes normal to inspection Psych Mental Status: mental status grossly normal Objective Labs and Meds 08/26/24 06:43 08/26/24 06:43 Lab results: Laboratory Results - last 24 hr 08/25/24 08/25/24 08/25/24 11:11 16:16 20:11 WBC RBC Hgb Hct MCV MCH MCHC RDW Plt Count MPV Immature Gran % (Auto) Neut % (Auto) Lymph % (Auto) [place] % (Auto) Eos % (Auto) Baso % (Auto) Lymph # (Auto) [place] # (Auto) Eos # (Auto) Baso # (Auto) Abs Immat Gran (auto) Absolute Neuts (auto) Absolute Nucleated RBC Nucleated RBC % (auto) Sodium Potassium Chloride Carbon Dioxide Anion Gap BUN Creatinine Estim Creat Clear Calc Estimated GFR POC Glucose 234 H 271 H 272 H Fasting Glucose Calcium Total Bilirubin AST ALT Alkaline Phosphatase C-Reactive Protein Total Protein Albumin Random Vancomycin 08/26/24 08/26/24 06:43 07:47 WBC 7.9 RBC 4.13 L Hgb 11.2 L Hct 32.6 L MCV 78.9 L MCH 27.1 MCHC 34.4 RDW 14.1 Plt Count 148 L MPV 10.1 Immature Gran % (Auto) 0.4 Neut % (Auto) 64.9 Lymph % (Auto) 22.3 [place] % (Auto) 8.4 Eos % (Auto) 3.2 Baso % (Auto) 0.8 Lymph # (Auto) 1.8 [place] # (Auto) 0.7 Eos # (Auto) 0.3 Baso # (Auto) 0.1 Abs Immat Gran (auto) 0.03 Absolute Neuts (auto) 5.1 Absolute Nucleated RBC 0.000 Nucleated RBC % (auto) 0.0 Sodium 139 Potassium 3.4 Chloride 99 Carbon Dioxide 34 H Anion Gap 9 L BUN 24 H Creatinine 2.12 H Estim Creat Clear Calc 53.3 Estimated GFR 34 POC Glucose 273 H Fasting Glucose 270 H Calcium 8.1 L Total Bilirubin 0.6 AST 27 ALT 22 Alkaline Phosphatase 82 C-Reactive Protein 2.46 H Total Protein 6.5 Albumin 2.5 L Random Vancomycin 23.9 H Progress Note: A&P Assessment and plan (1) Acute combined systolic and diastolic CHF, NYHA class 3: Status: Acute Plan Per last echocardiogram in April of 2024, LVEF is 28%. Study was repeated this admission and LVEF is just about the same, 20-25%. Overall, acute on chronic heart failure. Volume status is difficult to assess what he is still seems overloaded. Input/output charting is also not accurate. Yesterday, he receive furosemide 80 mg b.i.d. IV. We can probably try a Lasix drip today. Additional metolazone. Renal function has gone up slightly but we can monitor that. He also has a history of concurrent orthostatic hypotension/syncope and hence difficult to adjust meds. In the past, he was indeed on Entresto, Jardiance, spironolactone, but everything was stopped because of syncope. As the blood pressure is on the higher side, we have stopped his midodrine. If it remains stable, other meds can be slowly reintroduced. Creatinine will also need to be stable. To be decided. We will follow up with you. Time Spent With Patient Time: Total time managing care of this patient today ____ minutes. Progress Note: Quality Stroke Does the patient have a stroke diagnosis?: No Procedures Date of Service Date of Service: 08/26/24
[2024-08-26 11:35] LABS: Glucose, Whole Blood 305 mg/dL (60-115)
[2024-08-26] MEDS: Insulin Lispro 100 UNIT/ML 3 ML VIAL SUBCUT ×2 (12:10→16:32)
--- NOTE | 2024-08-26 14:01 | P.PNIM_ITS ---
Subjective Subjective Date of Service: 08/26/24 Interval History: no fever foot infection improved; no drainage dyspnea improved Review of Systems Review of Systems: Yes all other systems are reviewed and are negative Physical Exam 2 Vital Signs: Vital Signs: Last Vital Signs Temp 98.7 F 08/26/24 11:41 Pulse 88 08/26/24 11:41 Resp 17 08/26/24 11:41 BP 133/92 H 08/26/24 11:41 Pulse Ox 92 08/26/24 11:41 O2 Del Method Room Air 08/26/24 11:41 BMI result Body Mass Index 31.1 Gen: in no acute distress HEENT: sclera anicteric, moist mucus membranes Neck: supple Lungs: diminished Heart: regular rate and rhythm, no murmurs Abd: soft, non-tender, non-distended Ext: 1+ bilateral leg edema Skin: warm/well-perfused, L foot with resolving erythema; no purulence Neuro: alert and oriented x3, no focal findings Psych: appropriate affect Objective Data Active Medications Acetaminophen (Acetaminophen 325 Mg Tablet) 650 mg PO Q6H PRN PRN Reason: Pain, Mild 1-3,fever,headache Albuterol Sulfate (Albuterol Sulfate 90 Mcg 8 Gm Inhaler) 1 puff INHALE QID PRN PRN Reason: shortness of breath or wheezing Amoxicillin/Clavulanate Potassium (Amoxicillin/Potassium Clav 875 Mg Tablet) 875 mg PO Q12H [facility] Last Admin: 08/26/24 08:56 Dose: 875 mg Documented By: ZAN Calcium Carbonate (Calcium Carbonate 750 Mg Tab.Chew) 750 mg PO Q4H PRN PRN Reason: Heartburn Carvedilol (Carvedilol 3.125 Mg Tablet) 3.125 mg PO BID [facility]; Protocol Last Admin: 08/26/24 08:18 Dose: 3.125 mg Documented By: ZAN Doxycycline Monohydrate (Doxycycline Monohydrate 100 Mg Capsule) 100 mg PO Q12H [facility] Last Admin: 08/26/24 08:56 Dose: 100 mg Documented By: ZAN Enoxaparin Sodium (Enoxaparin Sodium 40 Mg/0.4 Ml Syringe) 40 mg SUBCUT Q24H [facility] Last Admin: 08/25/24 17:12 Dose: 40 mg Documented By: MISA-JANOL Furosemide (Furosemide 100 Mg/10 Ml Vial) 80 mg IVPUSH BID@0900,1800 [facility]; Protocol Last Admin: 08/26/24 08:18 Dose: 80 mg Documented By: ZAN Glucose (Glucose Gel 15 Gm Gel..Gram.) 15 gm PO Q15M PRN; Protocol PRN Reason: per Hypoglycemia Standing Ord. Dextrose (D10) 250 mls @ 750 mls/hr IV Q15M PRN; Protocol PRN Reason: per Hypoglycemia Standing Ord. Insulin Human Lispro (Insulin Lispro 100 Unit/Ml 3 Ml Vial) 0 unit SUBCUT QIDACHS [facility]; Protocol Last Admin: 08/26/24 12:10 Dose: 8 unit Documented By: ZAN Magnesium Hydroxide (Milk Of Magnesia 30 Ml Oral.Susp) 30 ml PO DAILY PRN PRN Reason: Constipation Melatonin (Melatonin 3 Mg Tablet) 6 mg PO BEDTIME PRN PRN Reason: Insomnia Multivitamins/Vitamin C (Multivitamin Tablet) 1 tab PO DAILY [facility] Last Admin: 08/26/24 08:18 Dose: 1 tab Documented By: ZAN Ondansetron HCl (Ondansetron Hcl 4 Mg/2 Ml Vial) 4 mg IVPUSH Q8H PRN PRN Reason: Nausea and Vomiting Sodium Chloride (0.9 % Sodium Chloride Flush 3 Ml Syringe) [facility] Admin: 08/26/24 08:22 Dose: 3 ml Documented By: ZAN Labs 08/26/24 06:43 08/26/24 06:43 Labs: Laboratory Results - last 24 hr 08/25/24 08/25/24 08/26/24 16:16 20:11 06:43 MCV 78.9 L MCH 27.1 MCHC 34.4 RDW 14.1 Plt Count 148 L MPV 10.1 Immature Gran % (Auto) 0.4 Neut % (Auto) 64.9 Lymph % (Auto) 22.3 [place] % (Auto) 8.4 Eos % (Auto) 3.2 Baso % (Auto) 0.8 Lymph # (Auto) 1.8 [place] # (Auto) 0.7 Eos # (Auto) 0.3 Baso # (Auto) 0.1 Abs Immat Gran (auto) 0.03 Absolute Neuts (auto) 5.1 Absolute Nucleated RBC 0.000 Nucleated RBC % (auto) 0.0 Anion Gap 9 L Estim Creat Clear Calc 53.3 Estimated GFR 34 POC Glucose 271 H 272 H Fasting Glucose 270 H Calcium 8.1 L Total Bilirubin 0.6 AST 27 ALT 22 Alkaline Phosphatase 82 C-Reactive Protein 2.46 H Total Protein 6.5 Albumin 2.5 L Random Vancomycin 23.9 H 08/26/24 08/26/24 07:47 11:23 MCV MCH MCHC RDW Plt Count MPV Immature Gran % (Auto) Neut % (Auto) Lymph % (Auto) [place] % (Auto) Eos % (Auto) Baso % (Auto) Lymph # (Auto) [place] # (Auto) Eos # (Auto) Baso # (Auto) Abs Immat Gran (auto) Absolute Neuts (auto) Absolute Nucleated RBC Nucleated RBC % (auto) Anion Gap Estim Creat Clear Calc Estimated GFR POC Glucose 273 H 305 H Fasting Glucose Calcium Total Bilirubin AST ALT Alkaline Phosphatase C-Reactive Protein Total Protein Albumin Random Vancomycin Assessment and Plan (1) Cellulitis of foot: Status: Acute (2) Acute combined systolic and diastolic CHF, NYHA class 3: Status: Acute Plan d5 for 44yo M with DM2 + cardiomyopathy/HFrEF off diuretics for 3mo presenting with exertional dyspnea + leg swelling, also R foot infection R foot cellulitis - 08/22-08/26 pip-darlene + vanco, change to amox-clav + doxy, blood cultures negative, Gen Surg following and no drainage indicated acute/chronic HFrEF - LVEF 28% (Apr 2024); was on IV furosemide 80 mg bid and also got a dose of metolazone; hold diuresis given TORIBIO- ?prerenal vs cardiorenal - Cardiology following - continue carvedilol - not on Entresto, Jardiance, or spironolactone due to hx orthostatic hypotension and was on midodrine for this but no longer orthostatic TORIBIO - HOLD diuresis and recheck BMP in AM HTN - midodrine discontinued - carvedilol as above CHRONIC ISSUES DM2: correction-dose lispro VTE ppx - enoxaparin dispo - eventual home In my clinical judgment, the patient requires continued inpatient hospitalization for the following reasons: TORIBIO, diuresis Total time managing care of this patient today: 40 minutes. Quality Stroke Does the patient have a stroke diagnosis?: No VTE Prior VTE?: No VTE Risk Level:: Medical - moderate - high VTE Device Contraindication: Treatment Not Indicated VTE Drug Contraindication: N/A - Med Ordered
[2024-08-26 15:14] LABS: Glucose, Whole Blood 220 mg/dL (60-115)
[2024-08-26] MEDS: Enoxaparin Sodium 40 MG/0.4 ML SYRINGE SUBCUT (16:31)
[2024-08-26 18:21] LABS: Vancomycin Random 15.6 mcg/mL (15-20)
[2024-08-26 20:54] LABS: Glucose, Whole Blood 175 mg/dL (60-115)
[2024-08-27 04:00] VITALS: BP 136/87; PULSE 94; RESP 18; TEMP 36.4; O2SAT 93
[2024-08-27 07:58] LABS: Anion Gap 10 (12-20); Blood Urea Nitrogen 26 mg/dL (9-16); Calcium 8.8 mg/dL (8.4-10.2); Carbon Dioxide 34 mmol/L (22-29); Chloride 97 mmol/L (96-108); Creatinine Clr Calc Pharmacy 64.6; Estimated Glomerular Filt Rate 43; Glucose Random 216 mg/dL (60-115); Magnesium 1.4 mg/dL (1.6-2.6); Potassium 3.1 mmol/L (3.3-5.1); Sodium 138 mmol/L (135-145)
[2024-08-27 07:59] VITALS: BP 159/95; PULSE 92; RESP 19; TEMP 36.6; O2SAT 92
[2024-08-27 08:01] LABS: Glucose, Whole Blood 209 mg/dL (60-115)
[2024-08-27 08:07] LABS: B Type Natriuretic Peptide 350 pg/mL (<100)
[2024-08-27] MEDS: carvediloL 3.125 MG TABLET PO ×2 (08:58→22:40)
[2024-08-27] MEDS: Multivitamin TABLET 1 TAB PO (08:58)
[2024-08-27] MEDS: Doxycycline Monohydrate 100 MG CAPSULE PO ×2 (08:58→22:39)
[2024-08-27] MEDS: Amoxicillin/Potassium Clav 875 MG TABLET PO ×2 (08:58→22:39)
[2024-08-27] MEDS: Magnesium Sulfate/H2O 2 GM/50 ML PIGGYBACK IV (08:59)
[2024-08-27] MEDS: Insulin Lispro 100 UNIT/ML 3 ML VIAL SUBCUT ×4 (08:59→22:39)
[2024-08-27] MEDS: Potassium Chloride ER 20 MEQ TAB.ER.PRT 40 MEQ PO (09:02)
--- NOTE | 2024-08-27 10:25 | PM.PNCARD ---
Subjective Subjective Date of Service: 08/27/24 Interval history: He states that he feels fine. Overall, feels better. Review of Systems Review of Systems Yes all other systems are reviewed and are negative Constitutional: Reports as per HPI and Reports no additional constitutional complaints Eyes: Reports as per HPI and Denies no additional eye complaints Denies system reviewed and no additional complaints, except as documented and Reports as per HPI Cardiovascular: Reports as per HPI, Reports no additional cardiovascular complaints, Denies acrocyanosis, Denies cool extremities, Denies chest pain, Denies leg edema, Denies lightheadedness, Denies palpitations and Denies dyspnea Respiratory: Reports as per HPI, Denies no additional respiratory complaints and Denies dyspnea Gastrointestinal: Reports as per HPI and Denies no additional gastrointestinal complaints Genitourinary: Reports no additional male genitourinary complaints and Reports as per HPI Musculoskeletal: Reports no additional musculoskeletal complaints and Reports as per HPI Skin/Breast: Reports system reviewed and no additional complaints, except as docu Reports system reviewed and no additional complaints, except as documented and Reports as per HPI Psychiatric: Reports no additional psychiatric complaints and Reports as per HPI Endocrine: Reports no additional endocrine complaints, Reports as per HPI and Denies palpitations Hematologic/Lymphatic: Reports no additional hematologic/lymphatic complaints and Reports as per HPI Allergic/Immunologic: Reports no additional allergic/immunologic complaints and Reports as per HPI Physical Exam Vital Signs: Last Vital Signs Temp 97.8 F 08/27/24 07:59 Pulse 92 08/27/24 07:59 Resp 19 08/27/24 07:59 BP 159/95 H 08/27/24 07:59 Pulse Ox 92 08/27/24 07:59 O2 Del Method Room Air 08/27/24 07:59 BMI result Body Mass Index 31.1 Const General: comfortable and no acute distress Orientation/consciousness: patient oriented x3 HEENT Other: Unremarkable Head: Yes normal to inspection Neck Neck: Yes normal visual inspection Chest Chest palpation & inspection: normal inspection of the chest Resp Auscultation: clear to auscultation bilaterally Cardio Palpation: normal PMI Heart sounds: S1 normal heart sound present, S2 normal heart sound present, no gallops, no murmurs and no rubs GI Palpation (GI): Soft to palpation Back/Spine/Pelvis Other: unremarkable Skin General skin exam: no rashes or lesions noted Neuro General: patient oriented x3 Extrem Other: 1+ edema General: Yes normal to inspection Psych Mental Status: mental status grossly normal Objective Labs and Meds 08/26/24 06:43 08/27/24 06:40 Lab results: Laboratory Results - last 24 hr 08/26/24 08/26/24 08/26/24 11:23 15:00 17:51 Sodium Potassium Chloride Carbon Dioxide Anion Gap BUN Creatinine Estim Creat Clear Calc Estimated GFR POC Glucose 305 H 220 H Random Glucose Calcium Magnesium B-Natriuretic Peptide Random Vancomycin 15.6 08/26/24 08/27/24 08/27/24 20:30 06:40 07:13 Sodium 138 Potassium 3.1 L Chloride 97 Carbon Dioxide 34 H Anion Gap 10 L BUN 26 H Creatinine 1.75 H Estim Creat Clear Calc 64.6 Estimated GFR 43 POC Glucose 175 H 209 H Random Glucose 216 H Calcium 8.8 D Magnesium 1.4 L* B-Natriuretic Peptide 350 H Random Vancomycin Progress Note: A&P Assessment and plan (1) Acute combined systolic and diastolic CHF, NYHA class 3: Status: Acute Plan Per last echocardiogram in April of 2024, LVEF is 28%. Study was repeated this admission and LVEF is just about the same, 20-25%. Overall, acute on chronic heart failure. He still have some leg swelling which could be more from cellulitis as opposed to heart failure. Overall, he looks better. May switch to oral diuretics. Continue carvedilol. He is off midodrine. If remains stable and also the kidney function normalizes, then potentially resume Entresto. In the past, he was on Entresto/Jardiance/spironolactone but was stopped because of orthostatic hypotension/syncope. Then put on midodrine. Hence meds will need to be further optimized as an outpatient. Treatment of cellulitis as he would otherwise do. Discussed with Dr. Tapia. Volume status is difficult to assess what he is still seems overloaded. Input/output charting is also not accurate. Yesterday, he receive furosemide 80 mg b.i.d. IV. We can probably try a Lasix drip today. Additional metolazone. Renal function has gone up slightly but we can monitor that. He also has a history of concurrent orthostatic hypotension/syncope and hence difficult to adjust meds. In the past, he was indeed on Entresto, Jardiance, spironolactone, but everything was stopped because of syncope. As the blood pressure is on the higher side, we have stopped his midodrine. If it remains stable, other meds can be slowly reintroduced. Creatinine will also need to be stable. To be decided. We will follow up with you. Time Spent With Patient Time: Total time managing care of this patient today ____ minutes. Progress Note: Quality Stroke Does the patient have a stroke diagnosis?: No Procedures Date of Service Date of Service: 08/27/24
--- NOTE | 2024-08-27 10:46 | PC.NURSE ---
Specimen from right foot collected by DR Bettencourt
--- NOTE | 2024-08-27 11:20 | PM.PNGS ---
Subjective Subjective Date of Service: 08/27/24 Interval history: No complaints currently Denies any pain on the foot Physical Exam Vital Signs: Vital Signs: Last Vital Signs Temp 97.8 F 08/27/24 07:59 Pulse 92 08/27/24 07:59 Resp 19 08/27/24 07:59 BP 159/95 H 08/27/24 07:59 Pulse Ox 92 08/27/24 07:59 O2 Del Method Room Air 08/27/24 07:59 BMI result Body Mass Index 31.1 Const: General: comfortable and no acute distress Resp: Effort & Inspection: normal respiratory effort Cardio: Rate: regular rate GI: Palpation (GI): Soft to palpation Extrem: Other: Right foot with the same cellulitic changes, thick large eschar that appears to be boggy Objective Data Active Medications Acetaminophen (Acetaminophen 325 Mg Tablet) 650 mg PO Q6H PRN PRN Reason: Pain, Mild 1-3,fever,headache Albuterol Sulfate (Albuterol Sulfate 90 Mcg 8 Gm Inhaler) 1 puff INHALE QID PRN PRN Reason: shortness of breath or wheezing Amoxicillin/Clavulanate Potassium (Amoxicillin/Potassium Clav 875 Mg Tablet) 875 mg PO Q12H [facility] Last Admin: 08/27/24 08:58 Dose: 875 mg Documented By: ZAN Calcium Carbonate (Calcium Carbonate 750 Mg Tab.Chew) 750 mg PO Q4H PRN PRN Reason: Heartburn Carvedilol (Carvedilol 3.125 Mg Tablet) 3.125 mg PO BID [facility]; Protocol Last Admin: 08/27/24 08:58 Dose: 3.125 mg Documented By: ZAN Doxycycline Monohydrate (Doxycycline Monohydrate 100 Mg Capsule) 100 mg PO Q12H [facility] Last Admin: 08/27/24 08:58 Dose: 100 mg Documented By: ZAN Enoxaparin Sodium (Enoxaparin Sodium 40 Mg/0.4 Ml Syringe) 40 mg SUBCUT Q24H [facility] Last Admin: 08/26/24 16:31 Dose: 40 mg Documented By: ZAN Furosemide (Furosemide 100 Mg/10 Ml Vial) 80 mg IVPUSH BID@0900,1800 [facility]; Protocol Last Admin: 08/26/24 08:18 Dose: 80 mg Documented By: ZAN Furosemide (Furosemide 40 Mg Tablet) 80 mg PO DAILY [facility]; Protocol Glucose (Glucose Gel 15 Gm Gel..Gram.) 15 gm PO Q15M PRN; Protocol PRN Reason: per Hypoglycemia Standing Ord. Dextrose (D10) 250 mls @ 750 mls/hr IV Q15M PRN; Protocol PRN Reason: per Hypoglycemia Standing Ord. Insulin Human Lispro (Insulin Lispro 100 Unit/Ml 3 Ml Vial) 0 unit SUBCUT QIDACHS [facility]; Protocol Last Admin: 08/27/24 08:59 Dose: 4 unit Documented By: ZAN Magnesium Hydroxide (Milk Of Magnesia 30 Ml Oral.Susp) 30 ml PO DAILY PRN PRN Reason: Constipation Melatonin (Melatonin 3 Mg Tablet) 6 mg PO BEDTIME PRN PRN Reason: Insomnia Multivitamins/Vitamin C (Multivitamin Tablet) 1 tab PO DAILY [facility] Last Admin: 08/27/24 08:58 Dose: 1 tab Documented By: ZAN Ondansetron HCl (Ondansetron Hcl 4 Mg/2 Ml Vial) 4 mg IVPUSH Q8H PRN PRN Reason: Nausea and Vomiting Sodium Chloride (0.9 % Sodium Chloride Flush 3 Ml Syringe) 3 ml IVFLUSH QSHIFT [facility] Last Admin: 08/26/24 20:08 Dose: 3 ml Documented By: BELANGB Labs 08/26/24 06:43 08/27/24 06:40 Labs: Laboratory Results - last 24 hr 08/26/24 08/26/24 08/26/24 11:23 15:00 17:51 Anion Gap Estim Creat Clear Calc Estimated GFR POC Glucose 305 H 220 H Random Glucose Calcium Magnesium B-Natriuretic Peptide Random Vancomycin 15.6 08/26/24 08/27/24 08/27/24 20:30 06:40 07:13 Anion Gap 10 L Estim Creat Clear Calc 64.6 Estimated GFR 43 POC Glucose 175 H 209 H Random Glucose 216 H Calcium 8.8 D Magnesium 1.4 L* B-Natriuretic Peptide 350 H Random Vancomycin Procedures Date of Service Date of Service: 08/27/24 Procedure Note Procedure Note: Procedure: Sharp excisional debridement of necrotic callus, with abscess Preop diagnosis: Necrotic callus Postop diagnosis: Necrotic callus with abscess He was in supine position. The area of the callus on the right foot was prepped and draped. This callus measured about 3 cm in diameter. I proceeded to open this callus with fine scissors and significant amounts of pus was drained. I did sharp excisional debridement of the entire callus to remove nonviable and necrotic looking tissue. This was involving full-thickness of the skin and part of the subcutaneous layer. The open area debrided was about 3 x 2 cm. I applied dry dressings and wrapped the foot with Kerlix lower. He tolerated the procedure well. There were no immediate complications. Cultures were taken. Progress Note: A&P Assessment and plan (1) Cellulitis of foot, right: Status: Acute Assessment and Plan: He has persistent redness in the right foot In view of the bogginess of the large thick callus, I proceeded to open this up and debrided this I was note of presence of necrotic tissue within the callus with pus I debrided an area about 2 x 3 cm of full-thickness of the skin and part of subcutaneous tissue Dry dressings applied Cultures taken daily wound care with dry dressings Time Spent With Patient Time: Total time managing care of this patient today ____ minutes. Quality Stroke Does the patient have a stroke diagnosis?: No VTE Prior VTE?: No VTE Risk Level:: Medical - moderate - high VTE Device Contraindication: Treatment Not Indicated VTE Drug Contraindication: N/A - Med Ordered
[2024-08-27 11:34] LABS: Glucose, Whole Blood 249 mg/dL (60-115)
[2024-08-27 11:47] VITALS: BP 128/83; PULSE 89; RESP 19; TEMP 36.4; O2SAT 98
[2024-08-27] MEDS: 0.9 % Sodium Chloride Flush 3 ML SYRINGE IVFLUSH ×3 (11:54→22:40)
[2024-08-27] MEDS: Furosemide 40 MG TABLET 80 MG PO (11:54)
--- NOTE | 2024-08-27 12:23 | P.PNIM_ITS ---
Subjective Subjective Date of Service: 08/27/24 Interval History: no fever dyspnea improved SCr improved thick callus on R foot with hyperpigmentation Review of Systems Review of Systems: Yes all other systems are reviewed and are negative Physical Exam 2 Vital Signs: Vital Signs: Last Vital Signs Temp 97.6 F 08/27/24 11:47 Pulse 89 08/27/24 11:47 Resp 19 08/27/24 11:47 BP 128/83 08/27/24 11:47 Pulse Ox 98 08/27/24 11:47 O2 Del Method Room Air 08/27/24 11:47 BMI result Body Mass Index 31.1 Gen: in no acute distress HEENT: sclera anicteric, moist mucus membranes Neck: supple Lungs: diminished Heart: regular rate and rhythm, no murmurs Abd: soft, non-tender, non-distended Ext: trace bilateral leg edema Skin: warm/well-perfused, L foot with hyperpigmentation; thick callus/eschar Neuro: alert and oriented x3, no focal findings Psych: appropriate affect Objective Data Active Medications Acetaminophen (Acetaminophen 325 Mg Tablet) 650 mg PO Q6H PRN PRN Reason: Pain, Mild 1-3,fever,headache Albuterol Sulfate (Albuterol Sulfate 90 Mcg 8 Gm Inhaler) 1 puff INHALE QID PRN PRN Reason: shortness of breath or wheezing Amoxicillin/Clavulanate Potassium (Amoxicillin/Potassium Clav 875 Mg Tablet) 875 mg PO Q12H [facility] Last Admin: 08/27/24 08:58 Dose: 875 mg Documented By: ZAN Calcium Carbonate (Calcium Carbonate 750 Mg Tab.Chew) 750 mg PO Q4H PRN PRN Reason: Heartburn Carvedilol (Carvedilol 3.125 Mg Tablet) 3.125 mg PO BID [facility]; Protocol Last Admin: 08/27/24 08:58 Dose: 3.125 mg Documented By: ZAN Doxycycline Monohydrate (Doxycycline Monohydrate 100 Mg Capsule) 100 mg PO Q12H [facility] Last Admin: 08/27/24 08:58 Dose: 100 mg Documented By: ZAN Enoxaparin Sodium (Enoxaparin Sodium 40 Mg/0.4 Ml Syringe) 40 mg SUBCUT Q24H [facility] Last Admin: 08/26/24 16:31 Dose: 40 mg Documented By: ZAN Furosemide (Furosemide 100 Mg/10 Ml Vial) 80 mg IVPUSH BID@0900,1800 [facility]; Protocol Last Admin: 08/26/24 08:18 Dose: 80 mg Documented By: ZAN Furosemide (Furosemide 40 Mg Tablet) 80 mg PO DAILY [facility]; Protocol Last Admin: 08/27/24 11:54 Dose: 80 mg Documented By: ZAN Glucose (Glucose Gel 15 Gm Gel..Gram.) 15 gm PO Q15M PRN; Protocol PRN Reason: per Hypoglycemia Standing Ord. Dextrose (D10) 250 mls @ 750 mls/hr IV Q15M PRN; Protocol PRN Reason: per Hypoglycemia Standing Ord. Insulin Human Lispro (Insulin Lispro 100 Unit/Ml 3 Ml Vial) 0 unit SUBCUT QIDACHS [facility]; Protocol Last Admin: 08/27/24 11:57 Dose: 4 unit Documented By: ZAN Magnesium Hydroxide (Milk Of Magnesia 30 Ml Oral.Susp) 30 ml PO DAILY PRN PRN Reason: Constipation Melatonin (Melatonin 3 Mg Tablet) 6 mg PO BEDTIME PRN PRN Reason: Insomnia Multivitamins/Vitamin C (Multivitamin Tablet) 1 tab PO DAILY [facility] Last Admin: 08/27/24 08:58 Dose: 1 tab Documented By: ZAN Ondansetron HCl (Ondansetron Hcl 4 Mg/2 Ml Vial) 4 mg IVPUSH Q8H PRN PRN Reason: Nausea and Vomiting Sodium Chloride (0.9 % Sodium Chloride Flush 3 Ml Syringe) 3 ml IVFLUSH QSHIFT [facility] Last Admin: 08/27/24 11:54 Dose: 3 ml Documented By: ZAN Labs 08/26/24 06:43 08/27/24 06:40 Labs: Laboratory Results - last 24 hr 08/26/24 08/26/24 08/26/24 15:00 17:51 20:30 Anion Gap Estim Creat Clear Calc Estimated GFR POC Glucose 220 H 175 H Random Glucose Calcium Magnesium B-Natriuretic Peptide Random Vancomycin 15.6 08/27/24 08/27/24 08/27/24 06:40 07:13 11:23 Anion Gap 10 L Estim Creat Clear Calc 64.6 Estimated GFR 43 POC Glucose 209 H 249 H Random Glucose 216 H Calcium 8.8 D Magnesium 1.4 L* B-Natriuretic Peptide 350 H Random Vancomycin Microbiology Microbiology Results: Microbiology 08/27/24 10:44 Gram Stain - Final Foot Right Assessment and Plan (1) Cellulitis of foot: Status: Acute (2) Acute combined systolic and diastolic CHF, NYHA class 3: Status: Acute Plan d6 for 44yo M with DM2 + cardiomyopathy/HFrEF off diuretics for 3mo presenting with exertional dyspnea + leg swelling, also R foot infection R foot cellulitis - 08/22-08/26 pip-darlene + vanco, change to amox-clav + doxy, blood cultures negative, Gen Surg performed bedside debridement of necrotic tissue from 2x3 cm area of full-thickness skin and some subcutaneous tissue; purulence expressed and sent for wound culture acute/chronic HFrEF - LVEF 28% (Apr 2024); was on IV furosemide 80 mg bid and also got a dose of metolazone; stopped IV diuresis 08/26 due to TORIBIO and SCr now improved - start PO maintenance furosemide 80 mg/d - Cardiology following - continue carvedilol - not on Entresto, Jardiance, or spironolactone due to hx orthostatic hypotension and was on midodrine for this but no longer orthostatic. Midodrine stopped. To consider restarting Entresto as outpt in Cardiology clinic. TORIBIO - improved; likely from excess diuresis; continue to monitor SCr hypoMg - replete IV; recheck level in AM hypoK - replete PO; recheck level in AM HTN - midodrine discontinued - carvedilol as above CHRONIC ISSUES DM2: correction-dose lispro VTE ppx - enoxaparin dispo - eventual home, possibly tomorrow In my clinical judgment, the patient requires continued inpatient hospitalization for the following reasons: TORIBIO Total time managing care of this patient today: 40 minutes. Quality Stroke Does the patient have a stroke diagnosis?: No VTE Prior VTE?: No VTE Risk Level:: Medical - moderate - high VTE Device Contraindication: Treatment Not Indicated VTE Drug Contraindication: N/A - Med Ordered
[2024-08-27 15:42] LABS: Glucose, Whole Blood 250 mg/dL (60-115)
[2024-08-27 15:49] VITALS: BP 130/83; PULSE 88; RESP 18; TEMP 36.3; O2SAT 94
[2024-08-27] MEDS: Enoxaparin Sodium 40 MG/0.4 ML SYRINGE SUBCUT (17:58)
[2024-08-27 19:36] VITALS: BP 127/78; PULSE 90; RESP 16; TEMP 36.4; O2SAT 98
[2024-08-27 22:12] LABS: Glucose, Whole Blood 309 mg/dL (60-115)
[2024-08-27 22:40] VITALS: BP 142/94; PULSE 95; RESP 20; TEMP 37; O2SAT 95
[2024-08-28 03:42] VITALS: BP 128/82; PULSE 93; RESP 16; TEMP 36.1; O2SAT 93
[2024-08-28 06:53] LABS: Anion Gap 13 (12-20); Blood Urea Nitrogen 32 mg/dL (9-16); Carbon Dioxide 33 mmol/L (22-29); Chloride 97 mmol/L (96-108); Creatinine Clr Calc Pharmacy 60.5; Estimated Glomerular Filt Rate 40; Glucose Random 263 mg/dL (60-115); Magnesium 1.7 mg/dL (1.6-2.6); Potassium 3.6 mmol/L (3.3-5.1); Sodium 139 mmol/L (135-145)
[2024-08-28 07:15] LABS: B Type Natriuretic Peptide 434 pg/mL (<100)
[2024-08-28 07:49] VITALS: BP 146/93; PULSE 94; RESP 17; TEMP 36.6; O2SAT 96
[2024-08-28 07:59] LABS: Glucose, Whole Blood 298 mg/dL (60-115)
--- NOTE | 2024-08-28 07:59 | P.PNGS_ITS ---
Subjective Subjective Date of Service: 08/28/24 Interval history: Denies complaints No events overnight Physical Exam 2 Vital Signs: Vital Signs: Last Vital Signs Temp 97.8 F 08/28/24 07:49 Pulse 94 08/28/24 07:49 Resp 17 08/28/24 07:49 BP 146/93 H 08/28/24 07:49 Pulse Ox 96 08/28/24 07:49 O2 Del Method Room Air 08/28/24 07:49 BMI result Body Mass Index 31.1 Const: General: comfortable and no acute distress Resp: Effort & Inspection: normal respiratory effort Cardio: Rate: regular rate GI: Palpation (GI): Soft to palpation and nontender Extrem: Other: Right foot open wound from debridement clean, no pus, cellulitis much improved Objective Data Active Medications Acetaminophen (Acetaminophen 325 Mg Tablet) 650 mg PO Q6H PRN PRN Reason: Pain, Mild 1-3,fever,headache Albuterol Sulfate (Albuterol Sulfate 90 Mcg 8 Gm Inhaler) 1 puff INHALE QID PRN PRN Reason: shortness of breath or wheezing Amoxicillin/Clavulanate Potassium (Amoxicillin/Potassium Clav 875 Mg Tablet) 875 mg PO Q12H [facility] Last Admin: 08/27/24 22:39 Dose: 875 mg Documented By: DORIAN Calcium Carbonate (Calcium Carbonate 750 Mg Tab.Chew) 750 mg PO Q4H PRN PRN Reason: Heartburn Carvedilol (Carvedilol 3.125 Mg Tablet) 3.125 mg PO BID [facility]; Protocol Last Admin: 08/27/24 22:40 Dose: 3.125 mg Documented By: DORIAN Doxycycline Monohydrate (Doxycycline Monohydrate 100 Mg Capsule) 100 mg PO Q12H [facility] Last Admin: 08/27/24 22:39 Dose: 100 mg Documented By: DORIAN Enoxaparin Sodium (Enoxaparin Sodium 40 Mg/0.4 Ml Syringe) 40 mg SUBCUT Q24H [facility] Last Admin: 08/27/24 17:58 Dose: 40 mg Documented By: ZAN Furosemide (Furosemide 100 Mg/10 Ml Vial) 80 mg IVPUSH BID@0900,1800 [facility]; Protocol Last Admin: 08/26/24 08:18 Dose: 80 mg Documented By: ZAN Furosemide (Furosemide 40 Mg Tablet) 80 mg PO DAILY [facility]; Protocol Last Admin: 08/27/24 11:54 Dose: 80 mg Documented By: ZAN Glucose (Glucose Gel 15 Gm Gel..Gram.) 15 gm PO Q15M PRN; Protocol PRN Reason: per Hypoglycemia Standing Ord. Dextrose (D10) 250 mls @ 750 mls/hr IV Q15M PRN; Protocol PRN Reason: per Hypoglycemia Standing Ord. Insulin Human Lispro (Insulin Lispro 100 Unit/Ml 3 Ml Vial) 0 unit SUBCUT QIDACHS [facility]; Protocol Last Admin: 08/27/24 22:39 Dose: 8 unit Documented By: DORIAN Magnesium Hydroxide (Milk Of Magnesia 30 Ml Oral.Susp) 30 ml PO DAILY PRN PRN Reason: Constipation Melatonin (Melatonin 3 Mg Tablet) 6 mg PO BEDTIME PRN PRN Reason: Insomnia Multivitamins/Vitamin C (Multivitamin Tablet) 1 tab PO DAILY [facility] Last Admin: 08/27/24 08:58 Dose: 1 tab Documented By: ZAN Ondansetron HCl (Ondansetron Hcl 4 Mg/2 Ml Vial) 4 mg IVPUSH Q8H PRN PRN Reason: Nausea and Vomiting Sodium Chloride (0.9 % Sodium Chloride Flush 3 Ml Syringe) 3 ml IVFLUSH QSHIFT [facility] Last Admin: 08/27/24 22:40 Dose: 3 ml Documented By: DORIAN Labs 08/26/24 06:43 08/28/24 06:14 Labs: Laboratory Results - last 24 hr 08/27/24 08/27/24 08/27/24 06:40 07:13 11:23 Anion Gap Estim Creat Clear Calc Estimated GFR POC Glucose 209 H 249 H Random Glucose Calcium Magnesium B-Natriuretic Peptide 350 H 08/27/24 08/27/24 08/28/24 15:31 22:02 06:14 Anion Gap 13 Estim Creat Clear Calc 60.5 Estimated GFR 40 POC Glucose 250 H 309 H Random Glucose 263 H Calcium 9.0 Magnesium 1.7 B-Natriuretic Peptide 434 H 08/28/24 07:55 Anion Gap Estim Creat Clear Calc Estimated GFR POC Glucose 298 H Random Glucose Calcium Magnesium B-Natriuretic Peptide Microbiology Microbiology Results: Microbiology 08/22/24 15:35 Blood Culture - Final Blood - Venous No growth after 5 days. 08/22/24 15:35 Blood Culture - Final Blood - Venous No growth after 5 days. 08/27/24 10:44 Gram Stain - Final Foot Right Procedures Date of Service Date of Service: 08/28/24 Progress Note: A&P Assessment and plan (1) Foot callus: Status: Acute Assessment and Plan: Status post sharp excisional debridement Large amounts of pus, necrotic tissue noted Dressings changed today Wound looks clean Daily wound care with wet-to-dry on open wound Time Spent With Patient Time: Total time managing care of this patient today ____ minutes. Quality Stroke Does the patient have a stroke diagnosis?: No VTE Prior VTE?: No VTE Risk Level:: Medical - moderate - high VTE Device Contraindication: Treatment Not Indicated VTE Drug Contraindication: N/A - Med Ordered
--- NOTE | 2024-08-28 09:35 | HO.WOUND ---
Wound Consult: Defer to General Surgery Wound consult received for Right Foot wound - chart review reveals seen by General Sruergy. Defer topical orders to general surgery at this time. Per Dr. Bettencourt note today Status post sharp excisional debridement Large amounts of pus, necrotic tissue noted Dressings changed today Wound looks clean Daily wound care with wet-to-dry on open wound . Not followed by impatient wound care nurse - will defer topical orders to general surgery. Please reconsult should topical orders be needed by inpatient wound care nurse.
[2024-08-28] MEDS: 0.9 % Sodium Chloride Flush 3 ML SYRINGE IVFLUSH ×2 (09:55→16:55)
[2024-08-28] MEDS: Multivitamin TABLET 1 TAB PO (09:55)
[2024-08-28] MEDS: Amoxicillin/Potassium Clav 875 MG TABLET PO ×2 (09:55→20:51)
[2024-08-28] MEDS: carvediloL 3.125 MG TABLET PO ×2 (09:55→20:51)
[2024-08-28] MEDS: Doxycycline Monohydrate 100 MG CAPSULE PO ×2 (09:55→20:51)
[2024-08-28] MEDS: Furosemide 40 MG TABLET 80 MG PO (09:55)
[2024-08-28] MEDS: Insulin Lispro 100 UNIT/ML 3 ML VIAL SUBCUT ×4 (09:57→20:53)
[2024-08-28 11:14] LABS: Glucose, Whole Blood 346 mg/dL (60-115)
[2024-08-28 11:29] VITALS: BP 154/98; PULSE 93; RESP 16; TEMP 36.2; O2SAT 100
--- NOTE | 2024-08-28 12:02 | ECG_ITS ---
Test Reason : chest pain Blood Pressure : */* mmHG Vent. Rate : 90 BPM Atrial Rate : 90 BPM P-R Int : 166 ms QRS Dur : 104 ms QT Int : 388 ms P-R-T Axes : 30 -22 48 degrees QTcB Int : 474 ms Normal sinus rhythm Moderate voltage criteria for LVH, may be normal variant ( R in aVL , [place] product ) Borderline ECG When compared with ECG of 22-Aug-2024 10:13, No significant change was found Referred By: Lula Tapia Electronically Signed By: Bryan Velasquez
--- NOTE | 2024-08-28 12:04 | PC.NURSE ---
Nausea, chest pain crushing pain #4 at this time , pt stated that pain was worse few minutes ago. c/o dizziness , keeping his eyes closed , stated that when he opens his eyes ,he is still dizzy. MD Tapia notified STAT EKG, stat Troponins ordered , MD at the bedside for assessment
--- NOTE | 2024-08-28 12:39 | PC.NURSE ---
Patient c/o chest pain, nausea, dizziness. BP:154/98, HR 90. MD notified. New orders for STAT EKG, trops, and nitro paste ordered. MD at bedside to evaluate patient.
--- NOTE | 2024-08-28 13:07 | HO.PM.IMPN ---
Subjective Subjective Date of Service: 08/28/24 Interval History: c/o chest pressure, sudden-onset, non-radiating, with some dyspnea but no diaphoresis, 4/10 in intensity no ischemic EKG changes prior to this, no dyspnea Review of Systems Review of Systems: Yes all other systems are reviewed and are negative Physical Exam Vital Signs: Vital Signs: Last Vital Signs Temp 97.1 F 08/28/24 11:29 Pulse 93 08/28/24 11:29 Resp 16 08/28/24 11:29 BP 154/98 H 08/28/24 11:29 Pulse Ox 100 08/28/24 11:29 O2 Del Method Room Air 08/28/24 11:29 BMI result Body Mass Index 31.1 Gen: in no acute distress HEENT: sclera anicteric, moist mucus membranes Neck: supple Lungs: diminished Heart: regular rate and rhythm, no murmurs Abd: soft, non-tender, non-distended Ext: trace bilateral leg edema Skin: warm/well-perfused, L foot with debrided wound; minimal erythema; no residual purulence Neuro: alert and oriented x3, no focal findings Psych: appropriate affect Objective Data Active Medications Acetaminophen (Acetaminophen 325 Mg Tablet) 650 mg PO Q6H PRN PRN Reason: Pain, Mild 1-3,fever,headache Albuterol Sulfate (Albuterol Sulfate 90 Mcg 8 Gm Inhaler) 1 puff INHALE QID PRN PRN Reason: shortness of breath or wheezing Amoxicillin/Clavulanate Potassium (Amoxicillin/Potassium Clav 875 Mg Tablet) 875 mg PO Q12H [facility] Last Admin: 08/28/24 09:55 Dose: 875 mg Documented By: JOCELINE Calcium Carbonate (Calcium Carbonate 750 Mg Tab.Chew) 750 mg PO Q4H PRN PRN Reason: Heartburn Carvedilol (Carvedilol 3.125 Mg Tablet) 3.125 mg PO BID [facility]; Protocol Last Admin: 08/28/24 09:55 Dose: 3.125 mg Documented By: JOCELINE Doxycycline Monohydrate (Doxycycline Monohydrate 100 Mg Capsule) 100 mg PO Q12H [facility] Last Admin: 08/28/24 09:55 Dose: 100 mg Documented By: JOCELINE Enoxaparin Sodium (Enoxaparin Sodium 40 Mg/0.4 Ml Syringe) 40 mg SUBCUT Q24H [facility] Last Admin: 08/27/24 17:58 Dose: 40 mg Documented By: ZAN Furosemide (Furosemide 100 Mg/10 Ml Vial) 80 mg IVPUSH BID@0900,1800 [facility]; Protocol Last Admin: 08/26/24 08:18 Dose: 80 mg Documented By: ZAN Furosemide (Furosemide 40 Mg Tablet) 80 mg PO DAILY [facility]; Protocol Last Admin: 08/28/24 09:55 Dose: 80 mg Documented By: JOCELINE Glucose (Glucose Gel 15 Gm Gel..Gram.) 15 gm PO Q15M PRN; Protocol PRN Reason: per Hypoglycemia Standing Ord. Dextrose (D10) 250 mls @ 750 mls/hr IV Q15M PRN; Protocol PRN Reason: per Hypoglycemia Standing Ord. Insulin Human Lispro (Insulin Lispro 100 Unit/Ml 3 Ml Vial) 0 unit SUBCUT QIDACHS [facility]; Protocol Last Admin: 08/28/24 11:49 Dose: 8 unit Documented By: BALAJI Magnesium Hydroxide (Milk Of Magnesia 30 Ml Oral.Susp) 30 ml PO DAILY PRN PRN Reason: Constipation Melatonin (Melatonin 3 Mg Tablet) 6 mg PO BEDTIME PRN PRN Reason: Insomnia Multivitamins/Vitamin C (Multivitamin Tablet) 1 tab PO DAILY [facility] Last Admin: 08/28/24 09:55 Dose: 1 tab Documented By: JOCELINE Ondansetron HCl (Ondansetron Hcl 4 Mg/2 Ml Vial) 4 mg IVPUSH Q8H PRN PRN Reason: Nausea and Vomiting Sodium Chloride (0.9 % Sodium Chloride Flush 3 Ml Syringe) 3 ml IVFLUSH QSHIFT [facility] Last Admin: 08/28/24 09:55 Dose: 3 ml Documented By: JOCELINE Labs 08/26/24 06:43 08/28/24 06:14 Labs: Laboratory Results - last 24 hr 08/27/24 08/27/24 08/28/24 15:31 22:02 06:14 Anion Gap 13 Estim Creat Clear Calc 60.5 Estimated GFR 40 POC Glucose 250 H 309 H Random Glucose 263 H Calcium 9.0 Magnesium 1.7 Troponin I High Sens B-Natriuretic Peptide 434 H 08/28/24 08/28/24 08/28/24 07:55 11:02 12:23 Anion Gap Estim Creat Clear Calc Estimated GFR POC Glucose 298 H 346 H Random Glucose Calcium Magnesium Troponin I High Sens Cancelled B-Natriuretic Peptide Microbiology Microbiology Results: Microbiology 08/27/24 10:44 Gram Stain - Final Foot Right Routine Culture - Preliminary Culture in progress. 08/22/24 15:35 Blood Culture - Final Blood - Venous No growth after 5 days. 08/22/24 15:35 Blood Culture - Final Blood - Venous No growth after 5 days. Assessment and Plan (1) Cellulitis of foot: Status: Acute (2) Acute combined systolic and diastolic CHF, NYHA class 3: Status: Acute Plan d7 for 44yo M with DM2 + cardiomyopathy/HFrEF off diuretics for 3mo presenting with exertional dyspnea + leg swelling, also R foot infection chest pain - EKG, Tn-I x2, CXR, NTG R foot cellulitis - 08/22-08/26 pip-darlene + vanco, changed to amox-clav + doxy 08/27-, blood cultures negative, on 08/27 Gen Surg performed bedside debridement of necrotic tissue from 2x3 cm area of full-thickness skin and some subcutaneous tissue; purulence expressed and sent for wound culture; daily wet->dry dressing on open wound acute/chronic HFrEF - LVEF 28% (Apr 2024); was on IV furosemide 80 mg bid and also got a dose of metolazone; stopped IV diuresis 08/26 due to TORIBIO with subsequent improvement in SCr - started PO maintenance furosemide 80 mg/d 08/27 - Cardiology following - continue carvedilol - not on Entresto, Jardiance, or spironolactone due to hx orthostatic hypotension and was on midodrine for this but no longer orthostatic. Midodrine stopped. To consider restarting Entresto as outpt in Cardiology clinic. TORIBIO - continue to monitor SCr with resumption of furosemide hypoMg - repleted hypoK - repleted HTN - midodrine discontinued - carvedilol as above CHRONIC ISSUES DM2: correction-dose lispro VTE ppx - enoxaparin dispo - eventual home, possibly tomorrow In my clinical judgment, the patient requires continued inpatient hospitalization for the following reasons: TORIBIO, chest pain workup Total time managing care of this patient today: 40 minutes. Quality Stroke Does the patient have a stroke diagnosis?: No VTE Prior VTE?: No VTE Risk Level:: Medical - moderate - high VTE Device Contraindication: Treatment Not Indicated VTE Drug Contraindication: N/A - Med Ordered
[2024-08-28 13:17] LABS: Troponin-I High Sensitivity 4.2 ng/L (<3.5-35.0)
[2024-08-28] MEDS: Nitroglycerin 0.4 MG PATCH.TD24 TRANSDERMA (14:14)
--- NOTE | 2024-08-28 15:27 | MHC.CM.PN ---
Per rounds and EMR review, pt is not ready to DC. He had wound debridement today. Work up for chest pain today. Pt. will have VNA services for wound care, [facility] care is following (pt. lives in [place], [place] CM to follow for DC needs.
[2024-08-28 15:52] VITALS: BP 153/93; PULSE 88; RESP 20; TEMP 36.1; O2SAT 97
[2024-08-28 16:09] LABS: Glucose, Whole Blood 172 mg/dL (60-115)
[2024-08-28] MEDS: Enoxaparin Sodium 40 MG/0.4 ML SYRINGE SUBCUT (17:21)
[2024-08-28 19:19] VITALS: BP 136/22; PULSE 88; RESP 21; TEMP 36.2; O2SAT 99
[2024-08-28 19:31] LABS: Troponin-I High Sensitivity 5.7 ng/L (<3.5-35.0)
[2024-08-28 20:53] LABS: Glucose, Whole Blood 173 mg/dL (60-115)
[2024-08-28 23:03] LABS: Troponin-I High Sensitivity 7.7 ng/L (<3.5-35.0)
[2024-08-29] VITALS: BP 155/90; PULSE 95; RESP 19; TEMP 36.3; O2SAT 97
[2024-08-29] MEDS: Acetaminophen 325 MG TABLET 650 MG PO (00:29)
[2024-08-29 03:25] VITALS: BP 122/66; PULSE 80; RESP 20; TEMP 36.6; O2SAT 96
[2024-08-29 06:36] LABS: Anion Gap 11 (12-20); Blood Urea Nitrogen 37 mg/dL (9-16); Calcium 9.2 mg/dL (8.4-10.2); Carbon Dioxide 32 mmol/L (22-29); Chloride 98 mmol/L (96-108); Creatinine Clr Calc Pharmacy 66.5; Estimated Glomerular Filt Rate 44; Glucose Random 148 mg/dL (60-115); Potassium 3.3 mmol/L (3.3-5.1); Sodium 138 mmol/L (135-145)
[2024-08-29 07:14] LABS: Glucose, Whole Blood 152 mg/dL (60-115)
[2024-08-29 07:40] VITALS: BP 132/82; PULSE 86; RESP 16; TEMP 36.1; O2SAT 98
[2024-08-29] MEDS: carvediloL 3.125 MG TABLET PO (08:57)
[2024-08-29] MEDS: Multivitamin TABLET 1 TAB PO (08:57)
[2024-08-29] MEDS: Insulin Lispro 100 UNIT/ML 3 ML VIAL SUBCUT ×2 (08:57→11:43)
[2024-08-29] MEDS: Furosemide 40 MG TABLET 80 MG PO (08:57)
[2024-08-29] MEDS: 0.9 % Sodium Chloride Flush 3 ML SYRINGE IVFLUSH ×2 (08:59)
--- NOTE | 2024-08-29 10:28 | W.MHC.F2F ---
Service Date Service Date: 08/29/24 Encounter Date of encounter: 08/29/24 Reasons for Services Signs and symptoms assessed: wound care Reason for [facility]: wound care MD Overseeing Care: Tomy Cannon Homebound: Leaving the home is medically contraindicated at this time without the asist of a device and/or another person due th the listed conditions above and below. Reason homebound: immunosuppression / infection risk and weakness related to hospital stay Certification: Based on the above findings, I certify that this patient is confined to the home and needs intermittent [facility] care, physical therapy and/or speech therapy, or continues to need occupational therapy. The patient is under my care, and I have initiated the establishment of the plan of care. The patient will be followed by a physician who will periodically review the plan of care. Time Spent With Patient Time: Total time managing care of this patient today ____ minutes.
--- NOTE | 2024-08-29 10:29 | PM.DS ---
DS: Providers Provider Date of Service: 08/29/24 Date of admission: 08/22/24 16:09 Date of discharge: 08/29/24 Primary care physician: Tomy Cannon PA-C Consults: 08/22/24 16:07 Consult to Cardiology Routine Consulting Provider: [facility] Reason for consultation: CHF Has provider been notified: No 08/25/24 08:20 Consult to Wound Care Routine Reason for consultation: R foot cellulitis with callus-like lump 08/25/24 08:24 Consult to General Surgery Routine Consulting Provider: Matt Bettencourt Reason for consultation: diabetic foot ?abcess Has provider been notified: Yes DS: Diagnosis Discharge Diagnosis (1) Cellulitis of foot: Status: Acute (2) Foot abscess, right: Status: Acute (3) Acute on chronic combined systolic (congestive) and diastolic (congestive) heart failure: Status: Acute (4) Cardiomyopathy: Status: Acute (5) DMII (diabetes mellitus, type 2): Status: Acute (6) Diabetic foot ulcer associated with type 2 diabetes mellitus: Status: Acute (7) TORIBIO (acute kidney injury): Status: Acute (8) Hypokalemia: Status: Acute (9) Hypomagnesemia: Status: Acute DS: Summary Hospital Course Hospital Course: From the history and physical by the admitting hospitalist, Poli Gray DO, 08/22/24: 44-year-old male with a history of diabetes mellitus, cardiomyopathy with EF of 20% on 05/10/2024 who presents emergency department for evaluation of 4 days of weakness, fatigue, intermittent chest pressure and increased swelling in his lower extremities. Patient states that 4 days prior he was walking at [employer] for proximally 30 minutes. He states that while he was walking and had some intermittent chest pressure which would last minutes he states he did feel tired and fatigued. He states that the next day he then developed swelling in his lower extremities which is gotten progressively worse. He states he continues to have intermittent chest pressure lasting minutes, several times a day. The patient states that he had COVID-19 three months ago and since that time he was had a persistent cough which is nonproductive. He does feel short of breath at rest, he was orthopnea and he has dyspnea on exertion. Denied fever but did have chills. He denied rhinorrhea or sore throat. He denied nausea, vomiting or diarrhea. Patient states that he had a callus on his right foot near the 5th toe. Patient's saw customer contact specialist proximally 2 months ago and the callus was scraped off. Patient states that since he has had increased swelling in his legs and feet he noted increased pressure from his shoes and a callus came back. He states that a he noticed increased redness and warmth to his right foot and ankle. Admission requested for CHF exacerbation along with cellulitis right foot 44yo M with DM2 + cardiomyopathy/HFrEF off diuretics for 3mo presenting with exertional dyspnea + leg swelling, also R foot infection. He was admitted to the telemetry unit. Hospital course by problem: diabetic ulcer of R foot with cellulitis and abscesss - treated with piperacillin-tazobactam and vancomycin 08/22-08/26 then changed to amoxicillin-clavulanate + doxycycline 08/27-08/29. Blood cultures negative. On 08/27, Dr Bettencourt from General Surgery performed bedside debridement of necrotic tissue from 2x3 cm area of full-thickness skin and some subcutaneous tissue; purulence expressed and sent for wound culture, which grew Staphylococcus aureus. Wound care instructions: daily wet->dry dressing on open wound. [facility] services arranged for wound care. He was discharged with 3 days of linezolid and should follow up with [facility] General Surgery and [facility] Wound Care in 1 week. acute/chronic HFrEF TORIBIO hypoK hypoMg - LVEF 28% on TTE Apr 2024. Repeat limited TTE with LVEF 20-25%. He was given IV furosemide and also got metolazone. IV diuresis was stopped on 08/26 due to TORIBIO and electrolyte abnormalities [K and Mg were repleted]. SCr improved but not to baseline. He was started on maintenance furosemide 80 mg daily and BMP should be repeated in 3 days. Cardiology was consulted. Carvedilol continued. Midodrine stopped as he is no longer orthostatic. In the past, he had been on Entresto, Jardiance, and spironolactone and consideration should be given to adding these back in stepwise fashion as an outpatient by his order detailer. He should follow up with Cardiology in 2 weeks. Time Attestation Discharge Coordination Time (in mins): 40 Quality: Safe Use of Opioids Does Pt have an Active Cancer Diagnosis on the Problem List?: No Quality: Stroke Does the patient have a stroke diagnosis?: No Physical Exam Vital Signs: Vital Signs: Last Vital Signs Temp 97.0 F 08/29/24 07:40 Pulse 86 08/29/24 07:40 Resp 16 08/29/24 07:40 BP 132/82 08/29/24 07:40 Pulse Ox 98 08/29/24 07:40 O2 Del Method Room Air 08/29/24 07:40 BMI result Body Mass Index 31.1 Gen: in no acute distress HEENT: sclera anicteric, moist mucus membranes Neck: supple Lungs: diminished Heart: regular rate and rhythm, no murmurs Abd: soft, non-tender, non-distended Ext: trace bilateral leg edema Skin: warm/well-perfused, L foot with debrided wound; minimal erythema; no residual purulence Neuro: alert and oriented x3, no focal findings Psych: appropriate affect DS: Data Data Completed and Pending Completed studies during hospitalization [Text1]: Laboratory Results WBC 7.9 X10*3/uL (4.8-10.8) 08/26/24 06:43 RBC 4.13 X10*6/uL (4.60-5.80) L 08/26/24 06:43 Hgb 11.2 g/dl (14.0-18.0) L 08/26/24 06:43 Hct 32.6 % (42.0-52.0) L 08/26/24 06:43 MCV 78.9 fL (80.0-98.0) L 08/26/24 06:43 MCH 27.1 pg (27.0-33.0) 08/26/24 06:43 MCHC 34.4 g/dl (31.0-36.0) 08/26/24 06:43 RDW 14.1 % (11.0-16.0) 08/26/24 06:43 Plt Count 148 X10*3/uL (160-400) L 08/26/24 06:43 MPV 10.1 fL (9.4-12.4) 08/26/24 06:43 Immature Gran % (Auto) 0.4 % (0.0-0.4) 08/26/24 06:43 Neut % (Auto) 64.9 % (45-73) 08/26/24 06:43 Lymph % (Auto) 22.3 % (20-40) 08/26/24 06:43 [place] % (Auto) 8.4 % (2-11) 08/26/24 06:43 Eos % (Auto) 3.2 % (0-4) 08/26/24 06:43 Baso % (Auto) 0.8 % (0-2) 08/26/24 06:43 Lymph # (Auto) 1.8 X10*3/uL (1.2-4.9) 08/26/24 06:43 [place] # (Auto) 0.7 X10*3/uL (0.1-1.2) 08/26/24 06:43 Eos # (Auto) 0.3 X10*3/uL (0.0-0.4) 08/26/24 06:43 Baso # (Auto) 0.1 X10*3/uL (0.0-0.2) 08/26/24 06:43 Abs Immat Gran (auto) 0.03 X10*3/uL (0.00-0.03) 08/26/24 06:43 Absolute Neuts (auto) 5.1 x10*3/uL (2.0-8.3) 08/26/24 06:43 Absolute Nucleated RBC 0.000 X10*3/uL (0.0-0.012) 08/26/24 06:43 Nucleated RBC % (auto) 0.0 /100WBC (0.0-0.2) 08/26/24 06:43 Hold Purple Top SEE NOTE 08/29/24 06:02 Sodium 138 mmol/L (135-145) 08/29/24 06:02 Potassium 3.3 mmol/L (3.3-5.1) 08/29/24 06:02 Chloride 98 mmol/L (96-108) 08/29/24 06:02 Carbon Dioxide 32 mmol/L (22-29) H 08/29/24 06:02 Anion Gap 11 (12-20) L 08/29/24 06:02 BUN 37 mg/dL (9-16) H 08/29/24 06:02 Creatinine 1.70 mg/dL (0.5-1.4) H 08/29/24 06:02 Estim Creat Clear Calc 66.5 08/29/24 06:02 Estimated GFR 44 08/29/24 06:02 POC Glucose 152 mg/dL (60-115) H 08/29/24 07:05 Random Glucose 148 mg/dL (60-115) H 08/29/24 06:02 Fasting Glucose 270 mg/dL (60-99) H 08/26/24 06:43 Lactic Acid 0.9 mmol/L (0.5-2.0) 08/22/24 15:39 Calcium 9.2 mg/dL (8.4-10.2) 08/29/24 06:02 Magnesium 1.7 mg/dL (1.6-2.6) 08/28/24 06:14 Total Bilirubin 0.6 mg/dL (0.0-1.0) 08/26/24 06:43 Direct Bilirubin 0.4 mg/dL (0.0-0.5) 08/22/24 11:06 AST 27 U/L (5-37) 08/26/24 06:43 ALT 22 U/L (0-40) 08/26/24 06:43 Alkaline Phosphatase 82 U/L (39-117) 08/26/24 06:43 Troponin I High Sens 7.7 ng/L (<3.5-35.0) 08/28/24 22:11 C-Reactive Protein 2.46 mg/dL (< or = 0.50) H 08/26/24 06:43 B-Natriuretic Peptide 434 pg/mL (<100) H 08/28/24 06:14 Total Protein 6.5 g/dL (6.5-8.0) 08/26/24 06:43 Albumin 2.5 g/dL (3.5-5.0) L 08/26/24 06:43 Urine Color Yellow 08/22/24 16:28 Urine Appearance Clear 08/22/24 16:28 Urine pH 5.5 (5.0-9.0) 08/22/24 16:28 Ur Specific [place] 1.010 (1.005-1.025) 08/22/24 16:28 Urine Protein 300 (3+) mg/dL (Neg-Trace) H 08/22/24 16:28 Urine Glucose (UA) Negative mg/dL (Negative) 08/22/24 16:28 Urine Ketones Negative mg/dL (Negative) 08/22/24 16:28 Urine Blood Moderate (2+) (Negative) H 08/22/24 16:28 Urine Nitrite Negative (Negative) 08/22/24 16:28 Ur Leukocyte Esterase Negative (Negative) 08/22/24 16:28 Urine RBC 3-5 /HPF (0-2) H 08/22/24 16:28 Urine WBC 0-5 /HPF (0-5) 08/22/24 16:28 Ur Squamous Epith Cells 0-2 /HPF (0-2) 08/22/24 16:28 Urine Bacteria None Seen (None Seen) 08/22/24 16:28 Hyaline Casts 0-2 /LPF (0-2) 08/22/24 16:28 Random Vancomycin 15.6 mcg/mL (15-20) 08/26/24 17:51 Influenza Type A (PCR) NEGATIVE (Negative) 08/22/24 11:06 Influenza Type B (PCR) NEGATIVE (Negative) 08/22/24 11:06 RSV RNA Qual (PCR) NEGATIVE (Negative) 08/22/24 11:06 SARS-CoV-2 RNA (RT-PCR) NEGATIVE (Negative) 08/22/24 11:06 Impressions Chest X-Ray 08/28/24 13:47 IMPRESSION: No acute airspace disease. Electronically signed by: Vernon Andino MD 08/28/2024 02:01 PM [facility] TTE 08/23/24 - The left ventricular systolic function is severely decreased. The visually estimated ejection fraction is between 20-25%. Discharge Plan Discharge Anticipated Discharge Date/Time: 08/29/24 09:55 Patient Disposition: Home Health Service Discharge Diagnosis: CHF exacerbation cellulitis/abscess of right foot Referrals: [facility] Wound Care Management [Provider Group] - 1 Week Tomy Cannon PA-C [Primary Care Provider] - 1 Week Matt Bettencourt MD [Physician] - 1 Week Oleg Ritter MD [Physician] - 2 Weeks Discharge Medications: New linezolid 600 mg Tablet 600 mg PO Q12H Qty: 6 0RF furosemide 80 mg tablet 80 mg PO DAILY Qty: 30 0RF Continued (DME) [employer] Elaine 3 Sensor Device See Rx Instructions .Route Qty: 1 3RF Rx Instructions: As directed albuterol sulfate 90 mcg/actuation HFA aerosol inhaler 1 inh inhalation QID PRN (Reason: shortness of breath or wheezing) 30 Days Qty: 8.5 0RF insulin lispro 100 unit/mL insulin pen See Protocol subcut TIDAC Protocol: Insulin Correction Scale Less than or equal to 110 ---- Give (units): 0 111 to 150 Give (units): 0 151 to 200 Give (units): 2 201 to 250 Give (units): 4 251 to 300 Give (units): 6 301 to 350 Give (units): 8 Greater than 350 Give (units): 10 Call MD if Blood Glucose > : 350 Rx Instructions: Breakfast, Lunch and Dinner (DME) [employer] [facility] [place] [facility] See Rx Instructions .Route Qty: 1 0RF Rx Instructions: As directed (DME) pen needle, diabetic [BD Lula 2nd Gen Pen Needle] 32 gauge x 5/32 needle See Rx Instructions .ROUTE DAILY Qty: 1200 1RF Rx Instructions: 4 times per day multivitamin Tablet 1 tab PO DAILY carvedilol 3.125 mg tablet 3.125 mg PO BID (DME) [employer] Elaine 3 Sensor Device See Rx Instructions .Route Qty: 2 6RF Rx Instructions: As directed Changed insulin glargine [Lantus Solostar U-100 Insulin] 100 unit/mL (3 mL) insulin pen 16 unit subcut BEDTIME 90 Days Qty: 28.8 3RF Discontinued midodrine 5 mg tablet 5 mg PO TID 90 Days Qty: 270 3RF Rx Instructions: do not give last dose of day after 6PM or within 4 hrs of bedtime Discharge Orders: Discharge Order (Routine); Ordered 08/29/24 Ordered By: Lula Tapia Diet: low-sodium diabetic Activity on Discharge: As tolerated Stand Alone Forms: Patient Portal Discharge page Print Language: Senegalese Care Plan Goals: cure of infection cardiac health Health Concerns: CHF exacerbation cellulitis/abscess of right foot Plan of Treatment: STOP midodrine START furosemide 80 mg daily Low-sodium diet: less than 2000 mg of sodium daily. Weigh yourself daily and call your doctor if your weight goes up by more than 3 lb/day or 5 lb/week. Recheck BMP [non-fasting] in 2 days Follow up with [facility] Cardiology in 1-2 weeks Antibiotics: linezolid 600 mg twice daily for 3 days Wound care: wet-to-dry gauze on open wound, change daily Follow up with [facility] General Surgery and [facility] Wound Care in 1 week Decrease Lantus to 18 units daily for now. Increase by 2 units daily to achieve morning [fasting] blood glucose of 80-140 Please follow up with your primary care doctor within 1 week. Return to the hospital if you experience recurrent or worsening symptoms. Assessment: See Discharge Summary.
[2024-08-29] MEDS: Linezolid 600 MG TABLET PO (10:30)
[2024-08-29 11:02] LABS: Glucose, Whole Blood 243 mg/dL (60-115)
[2024-08-29 11:18] VITALS: BP 144/89; PULSE 90; RESP 18; TEMP 36.5; O2SAT 99
== END 2024-08-29 12:54 | disposition home health service (06) | DRG 420 ==
LOC: HO.ED 15:36 → HO.EDOVER 16:09 → HO.IMC 21:07
PROVIDERS: Physician Assistant; Student in an Organized Health Care Education/Training Program; Admitting Provider Hospitalist; Emergency Provider Emergency Medicine Emergency Medical Services; PCP Physician Assistant; Visit Provider Family Medicine
DX: E11.628 Type 2 diabetes mellitus with other skin complications (principal); I50.43 Acute on chronic combined systolic (congestive) and diastolic (congestive) heart failure; B95.61 Methicillin susceptible Staphylococcus aureus infection as the cause of diseases classified elsewhere; L03.115 Cellulitis of right lower limb; I42.8 Other cardiomyopathies; E11.52 Type 2 diabetes mellitus with diabetic peripheral angiopathy with gangrene; E83.42 Hypomagnesemia; E87.6 Hypokalemia; I11.0 Hypertensive heart disease with heart failure; N17.9 Acute kidney failure, unspecified; L84 Corns and callosities; Z20.822 Contact with and (suspected) exposure to COVID-19; Z79.4 Long term (current) use of insulin; Z79.899 Other long term (current) drug therapy
CPT/HCPCS: 0241U; 36415; 71045; 71046; 80048; 80053; 80076; 80202; 81001; 81003; 82947; 83605; 83735; 83880; 84484; 85025; 86140; 87040; 87070; 87077; 87186; 87205; 93005; 93308; 99285; J1650; J1940; J2543; J3370; J3475; Q9957

== ENCOUNTER → 2024-08-22 10:13 | Outpatient (BNV) | payer OTHER, SELFPAY | PROVIDERS: Admitting Provider Hospitalist; Emergency Provider Emergency Medicine Emergency Medical Services; PCP Physician Assistant; Visit Provider Internal Medicine | DX: R00.0 Tachycardia, unspecified (principal) | CPT/HCPCS: 93010 ==

== ENCOUNTER → 2024-08-22 10:37 | Outpatient (BNV) | payer OTHER, SELFPAY | PROVIDERS: PCP Physician Assistant; Visit Provider Radiology Diagnostic Radiology | DX: R06.02 Shortness of breath (principal) | CPT/HCPCS: 71046 ==

== ENCOUNTER 2024-08-22 16:09 | Outpatient (BNV) | payer OTHER, SELFPAY | END 2024-08-28 12:02 | PROVIDERS: Admitting Provider Hospitalist; Emergency Provider Emergency Medicine Emergency Medical Services; PCP Physician Assistant; Visit Provider Internal Medicine Cardiovascular Disease | DX: R07.9 Chest pain, unspecified (principal) | CPT/HCPCS: 93010 ==

== ENCOUNTER 2024-08-22 16:09 | Outpatient (BNV) | payer OTHER, SELFPAY | END 2024-08-28 13:47 | PROVIDERS: Admitting Provider Hospitalist; Emergency Provider Emergency Medicine Emergency Medical Services; PCP Physician Assistant; Visit Provider Radiology Diagnostic Radiology | DX: R07.9 Chest pain, unspecified (principal) | CPT/HCPCS: 71045 ==

== ENCOUNTER 2024-08-22 16:09 | Outpatient (BNV) | payer OTHER, SELFPAY | END 2024-08-23 07:00 | PROVIDERS: Admitting Provider Hospitalist; Emergency Provider Emergency Medicine Emergency Medical Services; PCP Physician Assistant; Visit Provider Internal Medicine | DX: I50.9 Heart failure, unspecified (principal) | CPT/HCPCS: 93308 ==

== ENCOUNTER → 2024-08-22 16:09 | Outpatient (BNV) | payer OTHER, SELFPAY | PROVIDERS: Admitting Provider Hospitalist; Emergency Provider Emergency Medicine Emergency Medical Services; PCP Physician Assistant; Visit Provider Internal Medicine | DX: I50.41 Acute combined systolic (congestive) and diastolic (congestive) heart failure (principal) | CPT/HCPCS: 99223 ==

== ENCOUNTER → 2024-08-22 16:09 | Outpatient (BNV) | payer OTHER, SELFPAY | PROVIDERS: Admitting Provider Hospitalist; Emergency Provider Emergency Medicine Emergency Medical Services; PCP Physician Assistant; Visit Provider Surgery | DX: L03.115 Cellulitis of right lower limb (principal) | CPT/HCPCS: 11042; 99222; 99231; 99232 ==

== ENCOUNTER → 2024-08-22 16:09 | Outpatient (BNV) | payer OTHER, SELFPAY | PROVIDERS: Admitting Provider Hospitalist; Emergency Provider Emergency Medicine Emergency Medical Services; PCP Physician Assistant; Visit Provider Hospitalist | DX: L03.119 Cellulitis of unspecified part of limb (principal); I50.41 Acute combined systolic (congestive) and diastolic (congestive) heart failure | CPT/HCPCS: 99223; 99232; 99233 ==

== ENCOUNTER 2024-09-01 10:47 | Outpatient (AMB) | payer OTHER, SELFPAY ==
[2024-09-01 11:07] VITALS: BP 124/68; PULSE 105; O2SAT 98; BMI 27.4
--- NOTE | 2024-09-01 11:07 | A.OFFPC_ITS ---
Vital Signs 3 09/01/24 11:07 Height 5 ft 10 in Weight 191 lb BMI 27.4 BP 124/68 Blood Pressure Location Lt brachial Position Sitting Pulse 105 H Pulse Source Pulse Oximeter Pulse Oximetry (%) 98 Oxygen Delivery Method Room Air Intake Visit Reasons: [facility] 08/29 shortness of breath Allergies metformin Adverse Reaction (Intermediate, Verified 09/01/24 11:08) GI side effects Tobacco use date assessed: 09/01/24 Dental Screening Dental Screen Date: 09/01/24 Did you have a dental visit in the last 12 months?: Yes Did you have a dental problem in the last 6 months where you did not have access to dental care?: No Was dental information given to patient?: Patient has dentist HPI HPI Comments 2 History of Present Illness0 Details 44 y/o male patient who presents to the clinic for HDF. Pt was admitted on 08/22/24 at [facility] for CHF exacerbation and Right Foot cellulitis. He was discharged home 08/29/24. He is currently taking his antibiotics as prescribed. Has follow up appointments with wound care, general surgery and Cardiology scheduled. No concerns today. New medications added Linezolid, Furosemide and lantus increased to 16 units. [facility] Medical History (Updated 08/29/24 @ 10:31 by Lula Tapia MD) Foot callus Cellulitis of foot Chronic combined systolic and diastolic CHF (congestive heart failure) Palpitation JOLIE (generalized anxiety disorder) MDD (major depressive disorder), recurrent episode, moderate Diabetic foot ulcer Cardiomyopathy Alcohol use disorder in remission HTN (hypertension) DMII (diabetes mellitus, type 2) CHF (congestive heart failure) Small bowel obstruction Hx of intestinal obstruction Erectile disorder due to medical condition in male patient Knee pain, right Surgical History Hx of esophagogastroduodenoscopy History of appendectomy History of hernia surgery Family History Mother Diabetes High blood pressure Social History Household Members: Spouse, Family and Children Household Members Other:: three kids and Housing: House Do you presently have visiting nurse or other home services: No Alcohol intake: never Patient Tobacco Use Status: Never used Tobacco Tobacco use type: Cigarette e-Cigarette/Vaping Use: Never Used Second Hand Smoke Exposure: No Advance Directives Date on File: 12/16/23 service: No Current occupational status: employed Current occupation: right handed Cognitive needs: No Hearing needs: No Vision needs: No Questionnaire PHQ-9 Over the last 2 weeks, how often have you been bothered by any of the following problems? 1. Little interest or pleasure in doing things: more than half the days 2. Feeling down, depressed, or hopeless: nearly every day 3. Trouble falling or staying asleep, or sleeping too much: more than half the days 4. Feeling tired or having little energy: several days 5. Poor appetite or overeating: more than half the days 6. Feeling bad about yourself - or that you are a failure or have let yourself or your family down: several days 7. Trouble concentrating on things, such as reading the newspaper or watching television: several days 8. Moving or speaking so slowly that other people could have noticed. Or the opposite - being so fidgety or restless that you have been moving around a lot more than usual: not at all 9. Thoughts that you would be better off or of hurting yourself in some way: not at all Total score: 12 Depression Screening Interpretation: Positive Depression Screening Follow-up: Existing condition and In treatment Depression Screening Done: Yes 25973 - PHQ-9 Billing: Yes Source: Developed by Drs. Josh Nava, Shelby Peres, Manuel Lloyd and colleagues, with an educational zaid from [employer]. Thrive Questionnaire Date Thrive assessed: 08/23/24 AUDIT C Alcohol Use Questionnaire (AUDIT-C) 1. How often do you have a drink containing alcohol?: 2-3 times a week 2. How many drinks containing alcohol do you have on a typical day when you are drinking?: 1 or 2 Total Score: 3 JOLIE-7 AMB Questionnaire JOLIE-7 Date JOLIE - 7 assessed: 09/01/24 Feeling nervous, anxious, or on edge: 0 = Not at all Not being able to stop or control worryin = Not at all Worrying too much about different things: 0 = Not at all Trouble relaxin = Not at all Being so restless that it is hard to sit still: 0 = Not at all Becoming easily annoyed or irritable: 0 = Not at all Feeling afraid as if something awful might happen: 0 = Not at all Total JOLIE-7 score (0-4 normal; 5-9 mild; 10-14 moderate; 15-21 severe): 0 Source: Developed by Drs. Josh Nava, Shelby Peres, Manuel Lloyd and colleagues, with an educational zaid from [employer]. Review of Systems Const All systems reviewed & are unremarkable except as noted in HPI and below Physical exam (Primary Care) Vital Signs: Last Vital Signs Pulse 105 H 09/01/24 11:07 BP 124/68 09/01/24 11:07 Pulse Ox 98 09/01/24 11:07 Oxygen Delivery Method Room Air 09/01/24 11:07 BMI result Body Mass Index 27.4 Tobacco/Smoking Status: Tobacco use Status Tobacco use date assessed 09/01/24 09/01/24 11:09 Patient Tobacco Use Status Never used Tobacco 09/01/24 11:09 Tobacco use type Cigarette 09/01/24 11:09 e-Cigarette/Vaping Use Never Used 09/01/24 11:09 PHQ-9: PHQ-9 Score PHQ-9: Total score 12 09/01/24 11:17 Depression Screening Interpretation: Positive Depression Screening Follow-up: Existing condition and In treatment Thrive Assessment: Date of Thrive Assessment Date Thrive assessed 08/23/24 09/01/24 11:09 Const General: cooperative and comfortable Orientation/consciousness: patient oriented x3 Resp Effort & Inspection: normal respiratory effort and able to speak in complete sentences Auscultation: clear to auscultation bilaterally Cardio Heart sounds: S1 normal heart sound present and S2 normal heart sound present Neuro General: patient oriented x3, gait normal and moves all extremities Extrem Ankle/foot/toe images: 2 1. dressing on right fifth Toe; dry, clean and intact. Psych Speech and movement: Normal speech and movement present Results AMB Hemoglobin A1c 2 AMB Hemoglobin A1c 7.8 % Last Edit by Lisa Kevin CMA on 09/01/24 11 :32 Coding Level of Care Code Est Pt Level 4 (89883) Diagnoses Acute on chronic combined systolic (congestive) and diastolic (congestive) heart failure I50.43 Cellulitis of foot, right L03.115 Additional Codes PHQ-9 - 63357 - PHQ-9 Billing: Yes ([id number]) Time Spent (min) 20 Assessment & Plan Assessment & Plan (1) Acute on chronic combined systolic (congestive) and diastolic (congestive) heart failure: Code(s): I50.43 - Acute on chronic combined systolic (congestive) and diastolic (congestive) heart failure Category: Medical Plan: Managed by Cardiology F/U with Cardiology as scheduled. (2) Cellulitis of foot, right: Code(s): L03.115 - Cellulitis of right lower limb Category: Medical Plan: Continue f/u with wound care as scheduled. F/u with general surgery as scheduled Continue on Linezolid as directed. Orders: Orders 2 AMB Hemoglobin A1c Today Z13.9 - Encounter for screening, unspecified
== END 2024-09-01 12:12 | disposition home or self-care (01) ==
PROVIDERS: PCP Physician Assistant; Visit Provider Nurse Practitioner Family
DX: I50.43 Acute on chronic combined systolic (congestive) and diastolic (congestive) heart failure (principal); L03.115 Cellulitis of right lower limb; Z13.9 Encounter for screening, unspecified

== ENCOUNTER → 2024-09-01 10:47 | Outpatient (BNVA) | payer OTHER, SELFPAY | PROVIDERS: PCP Physician Assistant; Visit Provider Nurse Practitioner Family | DX: I50.43 Acute on chronic combined systolic (congestive) and diastolic (congestive) heart failure (principal); L03.115 Cellulitis of right lower limb; E11.9 Type 2 diabetes mellitus without complications | CPT/HCPCS: 83036; 96127 ==

== ENCOUNTER 2024-09-07 08:49 | Outpatient (AMB) | payer OTHER, SELFPAY ==
[2024-09-07 08:50] VITALS: BMI 27.4
--- NOTE | 2024-09-07 08:50 | MHC.OFFVIS ---
Vital Signs 09/07/24 08:50 Height 5 ft 10 in Weight 190 lb 15.995 oz BMI 27.4 Intake Visit Reasons: non-healing wound foot Intake Note: This patient presents for non-healing wound foot. Pt c/o; he had a wound check this morning at [place] [facility] [place] [facility], no concerns. 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: No Accompanied by: Self / Same As Patient Allergies metformin Adverse Reaction (Intermediate, Verified 09/07/24 08:55) GI side effects Medication List - Last Reconciled 09/07/24 by Matt Bettencourt MD albuterol sulfate 90 mcg/actuation 1 inh inhalation QID PRN 30 days blood-glucose meter,continuous (FreeStyle Elaine 3 [place]) As directed blood-glucose sensor (FreeStyle Elaine 3 Sensor device) As directed blood-glucose sensor (FreeStyle Elaine 3 Sensor device) As directed carvedilol 3.125 mg PO BID furosemide 80 mg PO DAILY insulin glargine (Lantus Solostar U-100 Insulin) 16 units (0.16 mL) subcut BEDTIME 90 days insulin lispro See Protocol units subcut TIDAC linezolid 600 mg PO Q12H multivitamin 1 tab PO DAILY pen needle, diabetic (BD Lula 2nd Gen Pen Needle) 4 times per day HPI HPI non-healing wound foot: Details: He is here for follow-up for his foot abscess. He had an abscess from a very thick callus right foot which I had opened up and debrided. He says he is feeling well. He denies any problems with this foot. He says the cellulitis has cleared up. He says he had seen the Wound Clinic for follow up this morning and silver alginate dressings have been recommended. His blood sugars have been well controlled. [facility] Medical History Cardiomyopathy Foot callus Cellulitis of foot Chronic combined systolic and diastolic CHF (congestive heart failure) Palpitation JOLIE (generalized anxiety disorder) MDD (major depressive disorder), recurrent episode, moderate Diabetic foot ulcer Cardiomyopathy Alcohol use disorder in remission HTN (hypertension) DMII (diabetes mellitus, type 2) CHF (congestive heart failure) Small bowel obstruction Hx of intestinal obstruction Erectile disorder due to medical condition in male patient Knee pain, right Surgical History Hx of esophagogastroduodenoscopy History of appendectomy History of hernia surgery Family History Mother Diabetes High blood pressure Social History Household Members: Spouse, Family and Children Household Members Other:: three kids and Housing: House Do you presently have visiting nurse or other home services: No Alcohol intake: never Patient Tobacco Use Status: Never used Tobacco Tobacco use type: Cigarette e-Cigarette/Vaping Use: Never Used Second Hand Smoke Exposure: No Advance Directives Date on File: 12/16/23 service: No Current occupational status: employed Current occupation: right handed Cognitive needs: No Hearing needs: No Vision needs: No Review of Systems Const Denies chills and Denies fever(s) Card Denies chest pain, Denies dyspnea and Denies dyspnea on exertion Resp Denies cough, Denies dyspnea and Denies dyspnea on exertion GI Denies hematochezia and Denies change in bowel habits Denies hematuria and Denies difficulty urinating Musc Denies back pain and Denies limited range of motion Neuro Denies focal weakness and Denies convulsions Psych Denies depression and Denies mood swings Physical Exam Vital Signs: BMI result Body Mass Index 27.4 Const General: comfortable and no acute distress Resp Effort & Inspection: normal respiratory effort Cardio Rate: regular rate Extrem Other: Right foot superficial ulcer from the debridement clean, about 1.2 cm in diameter, noninfected, no cellulitis Assessment & Plan Assessment & Plan (1) Diabetic foot ulcer: Code(s): E11.621 - Type 2 diabetes mellitus with foot ulcer; L97.509 - Non-pressure chronic ulcer of other part of unspecified foot with unspecified severity Category: Medical Qualifiers: Diabetes mellitus type: type 2 Diabetic foot ulcer location: midfoot Laterality: right Non-pressure ulcer stage: limited to breakdown of skin Qualified Code(s): E11.621 - Type 2 diabetes mellitus with foot ulcer; L97.411 - Non-pressure chronic ulcer of right heel and midfoot limited to breakdown of skin Plan: He has this small open wound after debridement. This is healing well. This does not appear to be infected. His colitis has resolved He is to continue with silver alginate dressings as per the Wound Clinic I emphasized to him the importance of blood sugar controls. He is to avoid fitting shoes and it may be best for him to be able to wear diabetic shoes. He can follow up on a p.r.n. basis. Coding Level of Care Code Est Pt Level 2 (21849) Diagnoses Diabetic ulcer of right midfoot associated with type 2 diabetes mellitus, limited to breakdown of skin E11.621; L97.411 Diabetes mellitus type: type 2 Diabetic foot ulcer location: midfoot Laterality: right Non-pressure ulcer stage: limited to breakdown of skin
== END 2024-09-07 09:03 | disposition home or self-care (01) ==
PROVIDERS: PCP Physician Assistant; Visit Provider Surgery
DX: E11.621 Type 2 diabetes mellitus with foot ulcer (principal); L97.411 Non-pressure chronic ulcer of right heel and midfoot limited to breakdown of skin
CPT/HCPCS: 99212

== ENCOUNTER → 2024-09-07 08:49 | Outpatient (BNVA) | payer OTHER, SELFPAY | PROVIDERS: PCP Physician Assistant; Visit Provider Surgery ==

== ENCOUNTER 2024-09-20 10:52 | Outpatient (AMB) | payer OTHER, SELFPAY ==
--- NOTE | 2024-09-20 11:01 | A.OFFPC_ITS ---
Vital Signs 09/20/24 11:02 Height 5 ft 10 in Weight 204 lb 8 oz BMI 29.3 BP 134/102 H Blood Pressure Location Lt brachial Position Sitting Pulse 10 L Pulse Source Pulse Oximeter Temp 97.3 F Temp Source Temporal Artery Scan Pulse Oximetry (%) 99 Oxygen Delivery Method Room Air Intake Visit Reasons: f/u chf Intake Note: The patient is here for congestive heart failure (CHF) and reports experiencing high blood pressure over the past few days. Appeals Coordinator Required: No Accompanied by: Self / Same As Patient Allergies metformin Adverse Reaction (Intermediate, Verified 09/20/24 11:18) GI side effects Medication List - Last Reconciled 09/20/24 by Tomy Cannon PA-C albuterol sulfate 90 mcg/actuation 1 inh inhalation QID PRN 30 days blood-glucose meter,continuous (FreeStyle Elaine 3 [place]) As directed blood-glucose sensor (FreeStyle Elaine 3 Sensor device) As directed blood-glucose sensor (FreeStyle Elaine 3 Sensor device) As directed carvedilol 3.125 mg PO BID furosemide 80 mg PO DAILY insulin glargine (Lantus Solostar U-100 Insulin) 16 units (0.16 mL) subcut BEDTIME 90 days insulin lispro See Protocol units subcut TIDAC linezolid 600 mg PO Q12H multivitamin 1 tab PO DAILY pen needle, diabetic (BD Lula 2nd Gen Pen Needle) 4 times per day sacubitril-valsartan 24-26 mg (Entresto) 1 tab PO BID Tobacco use date assessed: 09/01/24 Dental Screening Dental Screen Date: 09/01/24 HPI f/u chf HPI Details Patient is a 44-year-old male here today for a follow-up visit. Patient has a past medical history significant type 2 diabetes, anxiety, Congestive heart failure, GERD. . Congestive heart failure with reduced ejection fraction: Recent admission to the hospital where cardiology consulted due to his heart failure symptoms. His midodrine was stopped as he was no longer orthostatic. Considerations made to perhaps restart Entresto and spironolactone. Has recently noted having more elevated blood pressures at home. He does report more recently waking up 3-4 hours into sleep with some shortness of breath and cough.? Orthopnea. Will restart Aldactone 25 mg in hopes this will help his orthopnea. Has follow-up visit with Cardiology and will discuss restarting his additional cardiac meds Cardiology considering defibrillator if LV remains low and further workup with a cardiac MRI Diabetic foot ulcer/abscess: Patient recently admitted to [facility] for acute Congestive heart failure exacerbation and diabetic foot ulcer to which he was treated with IV piperacillin tazobactam and vancomycin. General surgeon evaluated and performed bedside debridement of necrotic tissue. Wound cultures of the diabetic ulcer did grow Staphylococcus aureus. Now has home in a doing wound care. Now followed Podiatry, general surgeon and wound care nurse at home. He reports his wound is looking good and healing. [facility] Medical History (Updated 09/21/24 @ 07:35 by Tomy Cannon PA-C) DMII (diabetes mellitus, type 2) Cardiomyopathy Foot callus Cellulitis of foot Chronic combined systolic and diastolic CHF (congestive heart failure) Palpitation JOLIE (generalized anxiety disorder) MDD (major depressive disorder), recurrent episode, moderate Diabetic foot ulcer Cardiomyopathy Alcohol use disorder in remission HTN (hypertension) CHF (congestive heart failure) Small bowel obstruction Hx of intestinal obstruction Erectile disorder due to medical condition in male patient Knee pain, right Surgical History Hx of esophagogastroduodenoscopy History of appendectomy History of hernia surgery Family History Mother Diabetes High blood pressure Social History Household Members: Spouse, Family and Children Household Members Other:: three kids and Housing: House Do you presently have visiting nurse or other home services: No Alcohol intake: never Patient Tobacco Use Status: Never used Tobacco Tobacco use type: Cigarette e-Cigarette/Vaping Use: Never Used Second Hand Smoke Exposure: No Advance Directives Date on File: 12/16/23 service: No Current occupational status: employed Current occupation: right handed Cognitive needs: No Hearing needs: No Vision needs: No Questionnaire Thrive Questionnaire Date Thrive assessed: 08/23/24 JOLIE-7 AMB Questionnaire JOLIE-7 Date JOLIE - 7 assessed: 09/01/24 Source: Developed by Drs. Josh Nava, Shelby Peres, Manuel Lloyd and colleagues, with an educational zaid from [employer]. Review of Systems Const Denies headache(s) Eyes Denies loss of vision ENT Denies vertigo, Denies dizziness, Denies headache(s) and Denies sore throat Card Denies chest pain, Denies leg edema and Denies lightheadedness Resp Denies cough, Denies hemoptysis and Denies wheezing GI Denies abdominal pain, Denies melena, Denies constipation, Denies diarrhea and Denies vomiting Denies dysuria, Denies urinary frequency and Denies urinary urgency Musc Denies arthralgias, Denies joint swelling, Denies numbness and Denies tingling Neuro Denies Abnormal speech present, Denies behavioral changes, Denies vertigo, Denies dizziness, Denies headache(s), Denies loss of vision, Denies memory loss, Denies numbness and Denies tingling Psych Denies anxiety, Denies behavioral changes, Denies depression, Denies memory loss and Denies panic attacks Srinivas/Lymph Denies easy bleeding and Denies easy bruising Aller/Immun Denies wheezing Physical exam (Primary Care) Vital Signs: Last Vital Signs Temp 97.3 F 09/20/24 11:02 Pulse 10 L 09/20/24 11:02 BP 134/102 H 09/20/24 11:02 Pulse Ox 99 09/20/24 11:02 Oxygen Delivery Method Room Air 09/20/24 11:02 BMI result Body Mass Index 29.3 Tobacco/Smoking Status: Tobacco use Status Tobacco use date assessed 09/01/24 09/20/24 11:07 Patient Tobacco Use Status Never used Tobacco 09/20/24 11:07 Tobacco use type Cigarette 09/20/24 11:07 e-Cigarette/Vaping Use Never Used 09/20/24 11:07 Thrive Assessment: Date of Thrive Assessment Date Thrive assessed 08/23/24 09/20/24 11:07 Const General: healthy appearing, no acute distress, alert and awake Nutritional Appearance: well nourished Orientation/consciousness: oriented to person, oriented to place and oriented to time HENMT Ears: TM's normal bilaterally General nose exam: Normal nasal mucous membranes and turbinates present Eyes Conjunctivae: conjunctivae normal Sclerae: sclerae normal Pupils: Equal, round and reactive pupils present Neck Neck: Yes no lymphadenopathy and Yes no JVD Thyroid: Thyroid normal Carotids: no bruits Resp Effort & Inspection: normal respiratory effort and not tachypneic Auscultation: no crackles, no rales, no rhonchi and no wheezes Cardio Rate: regular rate Rhythm: regular rhythm Heart sounds: no murmurs and normal S1 and S2 GI Palpation (GI): Soft to palpation, nontender, no hepatomegaly and no splenomegaly Auscultation: normal bowel sounds Skin General skin exam: no rashes or lesions noted and dry skin Neuro General: oriented to person, oriented to place and oriented to time Cranial nerves: Yes Equal, round and reactive pupils present Speech: No Abnormal speech present Gait exam (Neuro): Normal gait present Motor exam (neuro): no tremor noted Extrem Right upper extremity: full ROM Left upper extremity: full ROM Right lower extremity: full ROM; no edema Left lower extremity: full ROM; no edema Psych Mental Status: mental status grossly normal Speech and movement: Normal speech and movement present Affect: normal affect Attitude: cooperative Thought process: Normal thought process present Coding Level of Care Code Est Pt Level 4 (70281) Diagnoses Chronic combined systolic and diastolic CHF (congestive heart failure) I50.42 Diabetic ulcer of right midfoot associated with type 2 diabetes mellitus, with necrosis of muscle E11.621; L97.413 Diabetes mellitus type: type 2 Diabetic foot ulcer location: midfoot Laterality: right Non-pressure ulcer stage: with necrosis of muscle MDD (major depressive disorder), recurrent episode, moderate F33.1 Type 2 diabetes mellitus with hyperglycemia, without long-term current use of insulin E11.65 Diabetes mellitus terminal computer operator insulin use: without snf use Diabetes mellitus complication status: with hyperglycemia Assessment & Plan Assessment & Plan (1) Chronic combined systolic and diastolic CHF (congestive heart failure): Code(s): I50.42 - Chronic combined systolic (congestive) and diastolic (congestive) heart failure Category: Medical Plan: Patient continues to follow cardiology has upcoming appointment. He does report signs and symptoms of orthopnea thus advised to restart Aldactone 25 mg. He reports blood pressures have been elevated as of late and we hope to Aldactone ups to reduce his blood pressures. Of note did hypotension with a combination of Aldactone, interested, carvedilol in the past. He has been taken off of midodrine during his recent hospitalization. He still feels a bit dizzy and has presyncopal episode during physical exertion which does not allow to work at all anymore. --> working on getting full disability He does have Entresto available to him though will hold off on starting this medication until he talks with his licensed psychiatric technician. (2) Diabetic foot ulcer: Code(s): E11.621 - Type 2 diabetes mellitus with foot ulcer; L97.509 - Non-pressure chronic ulcer of other part of unspecified foot with unspecified severity Category: Medical Qualifiers: Diabetes mellitus type: type 2 Diabetic foot ulcer location: midfoot Laterality: right Non-pressure ulcer stage: with necrosis of muscle Qualified Code(s): E11.621 - Type 2 diabetes mellitus with foot ulcer; L97.413 - Non- pressure chronic ulcer of right heel and midfoot with necrosis of muscle Plan: Patient followed by salesperson burial needs, general surgeon and and wound care nurse. He reports his diabetic foot ulcer has been much better since surgical debridement. He is now off of antibiotics. Most recent A1c is 7.8 (3) MDD (major depressive disorder), recurrent episode, moderate: Code(s): F33.1 - Major depressive disorder, recurrent, moderate Category: Medical Plan: Patient does admit to having some depression. He has recently been from his 23 years. He is living with a friend at this time in [place]. We did discuss perhaps starting to see a mental health therapist to discuss his mental health and he agrees. He is not interested a mental health medication at this time (4) DMII (diabetes mellitus, type 2): Comment: A1c 11.7% (08/2023) , 8.1% on 12/2023 Code(s): E11.9 - Type 2 diabetes mellitus without complications Category: Medical Qualifiers: Diabetes mellitus snf insulin use: without terminal computer operator use Diabetes mellitus complication status: with hyperglycemia Qualified Code(s): E11.65 - Type 2 diabetes mellitus with hyperglycemia Plan: Patient's type 2 diabetes suboptimally controlled with A1c is 7.8. Has been having better blood sugars since starting to use his continues glucose monitor. He continues to be adherent to his insulin therapy. Goal A1c is to be below 7.0 Orders: Orders Comprehensive Comfort. Panel Fast 09/20/24 I50.41 - Acute combined systolic (congestive) and diastolic (congestive) heart failure Complete Blood Count no Diff 09/20/24 I50.41 - Acute combined systolic (congestive) and diastolic (congestive) heart failure Magnesium 09/20/24 E83.42 - Hypomagnesemia Referrals Counseling Referral F33.1 - Major depressive disorder, recurrent, moderate Medications: New spironolactone (Aldactone) 25 mg PO DAILY 30 days 30 tabs 3RF I50.43 - Acute on chronic combined systolic (congestive) and diastolic (congestive) heart failure Discontinued linezolid Discontinued Reason: Doctor's Order 600 mg PO Q12H 6 tabs 0RF
[2024-09-20 11:02] VITALS: BP 134/102; PULSE 10; TEMP 36.3; O2SAT 99; BMI 29.3
== END 2024-09-20 11:46 | disposition home or self-care (01) ==
PROVIDERS: PCP Physician Assistant; Visit Provider Physician Assistant
DX: I50.42 Chronic combined systolic (congestive) and diastolic (congestive) heart failure (principal); E11.621 Type 2 diabetes mellitus with foot ulcer; L97.413 Non-pressure chronic ulcer of right heel and midfoot with necrosis of muscle; F33.1 Major depressive disorder, recurrent, moderate; E11.65 Type 2 diabetes mellitus with hyperglycemia

== ENCOUNTER 2024-09-26 07:44 | Outpatient (RCR) | payer OTHER, SELFPAY | END 2024-10-09 13:46 | disposition home or self-care (01) | LOC: HO.WCC 07:44 | PROVIDERS: PCP Physician Assistant; Visit Provider Surgery | DX: E10.622 Type 1 diabetes mellitus with other skin ulcer (principal); L97.512 Non-pressure chronic ulcer of other part of right foot with fat layer exposed; E10.40 Type 1 diabetes mellitus with diabetic neuropathy, unspecified; I95.9 Hypotension, unspecified; Z87.891 Personal history of nicotine dependence | CPT/HCPCS: 11042; 99212 ==

== ENCOUNTER 2024-10-04 13:02 | Outpatient (AMB) | payer OTHER, SELFPAY ==
[2024-10-04 13:08] VITALS: BP 162/100; PULSE 88; BMI 29.4
--- NOTE | 2024-10-04 13:08 | MHC.OFFVIS ---
Vital Signs 10/04/24 13:08 Height 5 ft 10 in Weight 205 lb 0.478 oz BMI 29.4 BP 162/100 H Blood Pressure Location Lt brachial Position Sitting Pulse 88 Pulse Source Pulse Oximeter Intake Visit Reasons: 3m s/p echo Allergies metformin Adverse Reaction (Intermediate, Verified 09/20/24 11:18) GI side effects Medication List - Last Reconciled 10/04/24 by Oleg Ritter MD albuterol sulfate 90 mcg/actuation 1 inh inhalation QID PRN 30 days blood-glucose meter,continuous (FreeStyle Elaine 3 [place]) As directed blood-glucose sensor (FreeStyle Elaine 3 Sensor device) As directed blood-glucose sensor (FreeStyle Elaine 3 Sensor device) As directed carvedilol 3.125 mg PO BID furosemide 80 mg PO DAILY insulin glargine (Lantus Solostar U-100 Insulin) 16 units (0.16 mL) subcut BEDTIME 90 days insulin lispro See Protocol units subcut TIDAC multivitamin 1 tab PO DAILY pen needle, diabetic (BD Lula 2nd Gen Pen Needle) 4 times per day spironolactone (Aldactone) 25 mg PO DAILY 30 days HPI Comments Details: Mark returns for follow-up regarding congestive heart failure. Suspected to have nonischemic cardiomyopathy, possibly related to alcohol excess. The last time he was heavily drinking was about an year ago or so but nothing after that. In the past, he has had stress testing as well which was unremarkable. Longstanding diabetes. No known coronary disease or myocardial infarction. Last year, he was on adequate guideline based medical therapy including carvedilol, Entresto, Jardiance, spironolactone extra but he was having orthostatic hypotension/syncope which required hospitalization and then he was put on midodrine. Most of his CHF meds were stopped. However, he had a recent hospitalization for heart failure exacerbation where he required IV diuretics. After few days of hospital stay, he was discharged. Currently, blood pressure is rather on the higher side. For symptoms, he does get short of breath with activity. Off and on leg swelling but improved with compression stockings. [facility] Medical History (Updated 09/21/24 @ 07:35 by Tomy Cannon PA-C) DMII (diabetes mellitus, type 2) Cardiomyopathy Foot callus Cellulitis of foot Chronic combined systolic and diastolic CHF (congestive heart failure) Palpitation JOLIE (generalized anxiety disorder) MDD (major depressive disorder), recurrent episode, moderate Diabetic foot ulcer Cardiomyopathy Alcohol use disorder in remission HTN (hypertension) CHF (congestive heart failure) Small bowel obstruction Hx of intestinal obstruction Erectile disorder due to medical condition in male patient Knee pain, right Surgical History Hx of esophagogastroduodenoscopy History of appendectomy History of hernia surgery Family History Mother Diabetes High blood pressure Social History Household Members: Spouse, Family and Children Household Members Other:: three kids and Housing: House Do you presently have visiting nurse or other home services: No Alcohol intake: never Patient Tobacco Use Status: Never used Tobacco Tobacco use type: Cigarette e-Cigarette/Vaping Use: Never Used Second Hand Smoke Exposure: No Advance Directives Date on File: 12/16/23 service: No Current occupational status: employed Current occupation: right handed Cognitive needs: No Hearing needs: No Vision needs: No Review of Systems Const All systems reviewed & are unremarkable except as noted in HPI and below Reports as per HPI and Reports no additional complaints Eyes Reports as per HPI and Denies no additional complaints ENT Denies no additional complaints and Reports as per HPI Card Reports as per HPI, Reports no additional complaints, Denies acrocyanosis, Denies chest pain, Denies leg edema, Denies lightheadedness, Denies palpitations and Denies dyspnea Resp Reports as per HPI, Denies no additional complaints and Denies dyspnea GI Reports as per HPI and Denies no additional complaints Reports no additional complaints and Reports as per HPI Musc Reports no additional complaints and Reports as per HPI Skin/Breast Reports system reviewed and no additional complaints, except as documented Neuro Reports no additional complaints and Reports as per HPI Psych Reports no additional complaints and Reports as per HPI Endo Reports no additional complaints, Reports as per HPI and Denies palpitations Srinivas/Lymph Reports no additional complaints and Reports as per HPI Aller/Immun Reports no additional complaints and Reports as per HPI Physical Exam Vital Signs: Last Vital Signs Pulse 88 10/04/24 13:08 BP 162/100 H 10/04/24 13:08 BMI result Body Mass Index 29.4 Const General: comfortable and no acute distress Orientation/consciousness: patient oriented x3 HEENT Other: Unremarkable Head: Yes normal to inspection Neck Neck: Yes normal visual inspection Chest Chest palpation & inspection: normal inspection of the chest Resp Other: Basal inspiratory crackles Cardio Palpation: normal PMI Heart sounds: S1 normal heart sound present, S2 normal heart sound present, Gallop heart sound present, no murmurs and no rubs GI Palpation (GI): Soft to palpation Back/Spine/Pelvis Other: unremarkable Skin General skin exam: no rashes or lesions noted Neuro General: patient oriented x3 Extrem General: Yes normal to inspection Psych Mental Status: mental status grossly normal Assessment & Plan Assessment & Plan (1) Chronic combined systolic and diastolic CHF (congestive heart failure): Code(s): I50.42 - Chronic combined systolic (congestive) and diastolic (congestive) heart failure Category: Medical (2) Alcohol use disorder in remission: Code(s): F10.91 - Alcohol use, unspecified, in remission Category: Medical (3) DMII (diabetes mellitus, type 2): Comment: A1c 11.7% (08/2023) , 8.1% on 12/2023 Code(s): E11.9 - Type 2 diabetes mellitus without complications Category: Medical Qualifiers: Diabetes mellitus complication status: with hyperglycemia Diabetes mellitus terminal computer operator insulin use: without terminal computer operator use Qualified Code(s): E11.65 - Type 2 diabetes mellitus with hyperglycemia Plan Cardiac studies reviewed. Echocardiogram from 11/2023-LVEF 35-40%. Moderate diastolic dysfunction. No significant valvular findings. Repeat echocardiogram from 04/2024-LVEF 28%. Most recent study from 08/2024, LVEF 20-25%. Myocardial perfusion imaging study from 02/2024-probably normal perfusion. Gated LVEF was 25% during stress and 33% during rest. Holter 03/2024-underlying rhythm is sinus with an average rate of 103/Min. Frequent sinus tachycardia. Etiology suspected to be alcohol related but we will get a cardiac MRI to assess for any other etiologies. Difficult issue with heart failure medications due to concurrent hypotension. However, more recently his blood pressure is rather high than low. Last year, he was on carvedilol, Entresto, Jardiance, spironolactone but after the hypotensive episode requiring hospitalization for syncope, he has been only on carvedilol and intermittent diuretics. We can recheck his labs. As long as the renal function is acceptable, probably resume the Entresto. It seems that PCP had is already resume the spironolactone. Continue diuretics. We could go up on the dose again if the creatinine is acceptable. Most recent creatinine is 1.7. We discussed about referral to an advanced heart failure Center and he is agreeable. We will send to [facility]. Also discussed about referral to EP for ICD discussion. Again agreeable and we will send to [facility]. With regard to diabetes, less than ideal control. Hemoglobin A1c is 7.8%. He is on insulin. Possibly cautiously reintroduce Jardiance in the future considering prior syncope. After we reviewed the labs, additional medications to be added as above. Orders: Orders Comprehensive [place]. Panel Fast 09/20/24 I50.41 - Acute combined systolic (congestive) and diastolic (congestive) heart failure MR cardiac morph fnct w con Today I42.9 - Cardiomyopathy, unspecified Referrals Cardiology Referral I50.42 - Chronic combined systolic (congestive) and diastolic (congestive) heart failure Cardiac Electrophysiology Referral I50.42 - Chronic combined systolic (congestive) and diastolic (congestive) heart failure Coding Level of Care Code Est Pt Level 5 (21925) Complex EM visit Add On G2211 Diagnoses Chronic combined systolic and diastolic CHF (congestive heart failure) I50.42 Alcohol use disorder in remission F10.91 Type 2 diabetes mellitus with hyperglycemia, without long-term current use of insulin E11.65 Diabetes mellitus complication status: with hyperglycemia Diabetes mellitus terminal computer operator insulin use: without half-way use
--- OUTSIDE RECORDS SUMMARY | 2024-10-04 13:14 | XMS_ITS | Encounter Summary ---
Author Organization [employer] Address [address] [place] [address] Care Team Providers Care Traffic Signal Mechanic Name Role Phone Tomy Cannon Primary Care Provider Reason for Visit * Reason Comments DM Foot Care Encounter Details Date Type Department Care Team (Late st Contact Info) Description 09/14/2024 9:45 AM EST Office Visit Orthopedic Surgery - [place] [address] [phone] Costa Blakely DPM [address] [address] Controlled type 2 diabetes mellitus with diabetic polyneuropathy, without long-term current use of insulin (CMS/HCC) (Primary Dx); Neuropathy; Onychomycosis; Callus; Localized edema; Metatarsalgia of both feet; Midfoot ulceration, right, with fat layer exposed (CMS/HCC) Social History Tobacco Use Types Packs/Day Years Used Date Smoking Tobacco: Never Assessed Sex and Gender Information Value Date Recorded Sex Assigned at Not on file Legal Sex Male 11:40 AM EDT Gender Identity Not on file Sexual Orientation Not on file documented as of this encounter Last Filed Vital Signs Vital Sign Reading Time Taken Comments Blood Pressure - - Pulse - - Temperature - - Respiratory Rate - - Oxygen Saturation - - Inhaled Oxygen Concentration - - Weight 90.7 kg (200 lb) 09/14/2024 9:37 AM EST Height 177.8 cm (5' 10 ) 09/14/2024 9:37 AM EST Body Mass Index 28.7 09/14/2024 9:37 AM EST documented in this encounter Progress Notes * Costa Blakely DPM - 09/14/2024 9:45 AM EST Referring MD: titus Last PCP visit: 07/29/2024 IDENTIFIER: @TITLE@ Kam is a 44 y.o. year old male who presents for consultation. CC: Right foot wound HPI: 44-year-old diabetic male returns office chief complaint of foot pain bilaterally. Patient notes hegets radiating pain and tingling and numbness to the feet bilaterally. Patient notes that recently he was in the hospital for incision and drainage of the right foot. Patient has a subsequent wound to the right foot which she is offloading and having his bandage changed every other day. Patient is interested in diabetic shoes. Patient notes his sugar today is 145 but cannot recall his most [id number] ROS: GENERAL: Pt denies nausea, fever, vomiting, chills, or shortness of breath. Pt in NAD. CARDIOLOGY: pt denies chest pain, palpitations LUNGS: pt denies shortness of breath MUSCULOSKELETAL: See HPI, otherwise no joint pain or swelling, back pain, or muscle pain. SKIN: see HPI, otherwise no lesions, rash or itching NEURO: No persistent headache, weakness or numbness The remainder of the review of systems is noncontributory PAST MEDICAL HISTORY: There is no problem list on file for this patient. SOCIAL HISTORY: Social History Tobacco Use Smoking status: Not on file Smokeless tobacco: Not on file Substance Use Topics Alcohol use: Not on file ACTIVE MEDICATIONS: No outpatient medications have been marked as taking for the 09/14/24 encounter (Office Visit) with Costa Blakely DPM. ALLERGIES: @ALL@ PHYSICAL EXAM: Height 1.778 m (70 ), weight 90.7 kg (200 lb). PODIATRIC EXAMINATION: GENERAL: Patient appears well nourished, with NAD. VASCULAR: Dorsalis pedis pulses are 2/4 bilaterally and Posterior tibial pulses are 2/4 bilaterally. Capillary filling time within normal limits the digits. No pallor on elevation or rubor on dependency. Positive hair growth. No varicosities. Denies rest pain or claudication pain. NEUROLOGICAL: Sharp/dull sensation intact, protective sensation diminished on [place]. Multiple peripheral neuropathies bilaterally ORTHOPEDIC: Good muscle strength 5/5 of all flexors and extensors. Dorsi flexion of ankle ,10 degrees, plantar flexion WNL. No muscle atrophy. Increased supination of feet on stance with increased pressure to the submetatarsal 5 position. DERMATOLOGICAL:.No masses or skin lesions noted. Normal skin temperature, normal skin turgor. Preulcerative lesion to the left submetatarsal 5 position. Small ulceration to the plantar aspect of the right foot with 5 mm of diameter and hyperkeratotic rim. Subcutaneous fibrogranular base with good bleeding tissue and no fluctuance tracking purulence or probe to bone. BIOMECHANICS: STJ ROM wnl, MTJ ROM wnl, 1st MPJ ROM wnl. IMPRESSION: 1. Controlled type 2 diabetes mellitus with diabetic polyneuropathy, without long-term current use of insulin ([facility]) 2. Neuropathy 3. Onychomycosis 4. Callus 5. Localized edema 6. Metatarsalgia of both feet 7. Midfoot ulceration, right, with fat layer exposed ([facility]) PLAN: Pt was seen and examined, history reviewed. Patient is once again educated on importance of keeping tight glucose control to decrease for nonhealing wounds and amputations in the future Patient continues to suffer with metatarsalgia to the plantar aspect of the feet bilaterally. Patient was fit with an offloading pad to the right foot instructed to use it daily in order to decrease pressure to the area Open wound selective debridement of devitalized soft tissue, fibrin, epidermis, dermis, thru skin and subcutaneous tissue, first 20 sq cm or less, using sterile sharp dissection #15 scalpel blade of the right plantar foot ulcer. Pt. deferred anesthesia. . Devitalized tissue was not sent to pathology. Patient was given a new prescription for diabetic shoes with 3 sets of custom Plastizote inserts toallow for proper and safe ambulation and decrease chances of future ulceration Patient was dressed with a felt offloading reverse dancers pad. Patient was instructed to use a offloading pad daily for ambulatory activity. Patient was dressed with a dry sterile dressing to the right lower extremity. Patient is increased risk for continued diabetic foot wounds and was instructed to return in 9 weeks for regular checkup. Patient understands he should call the office immediately if he has redness or swelling around the area of wound. Patient notes that he does follow with wound care for the same problem. Costa Blakely DPM documented in this encounter Plan of Treatment Upcoming Encounters Date Type Department Care Team (Late st Contact Info) Description 11/16/2024 9:30 AM EDT Office Visit Orthopedic Surgery - [place] 250 175 [facility] 250 [place] [phone] Costa Blakely, DPGuerrero 175 [facility] 250 [place] [address] documented as of this encounter Visit Diagnoses Diagnosis Controlled type 2 diabetes mellitus with diabetic polyneuropathy, without long- term current use of insulin (CMS/HCC)- Primary Neuropathy Mononeuritis of unspecified site Onychomycosis Dermatophytosis of nail Callus Corns and callosities Localized edema Edema Metatarsalgia of both feet Midfoot ulceration, right, with fat layer exposed (CMS/[facility]) documented in this encounter Orders General Supply Count Last Ordered Date First Or dered Date DIABETIC CUSTOM MOLDED SHOE WITH INSERTS 1 09/14/2024 documented in this encounter Care Teams Traffic Signal Mechanic Relationship Specialty Start Date End Date Tomy Cannon PA [address] [place] [phone] PCP - General 03/15/24 documented as of this encounter
--- OUTSIDE RECORDS SUMMARY | 2024-10-04 13:14 | XMS_ITS | Clinical Summary ---
Author Organization [address] [place] [address] Address 175 [place] [address] Phone Care Team Providers Care Newspaper Distributor Supervisor Name Role Phone Tomy Cannon Primary Care Provider Allergies Active Allergy Reactions Criticality Noted Date Comments Metformin 06/14/2024 Medications pioglitazone (ACTOS) 30 mg tablet Take 1 Tablet by mouth daily. Active insulin lispro (HumaLOG Balaji KwikPen U-100) 100 unit/mL HALF-UNIT injection pen Inject into the skin. Active carvediloL (COREG) 3.125 mg tablet Take 1 Tablet by mouth 2 times daily (with meals). Active Encounters Date Type Department Care Team Description 09/14/2024 9:45 AM EST Office Visit Orthopedic Surgery - [place] 250 175 [facility] [address] [place] [phone] Costa Blakely DPM Controlled type 2 diabetes mellitus with diabetic polyneuropathy, without long-term current use of insulin (CMS/HCC) (Primary Dx); Neuropathy; Onychomycosis; Callus; Localized edema; Metatarsalgia of both feet; Midfoot ulceration, right, with fat layer exposed (CMS/HCC) from Last 3 Months Social History Tobacco Use Types Packs/Day Years Used Date Smoking Tobacco: Never Assessed Sex and Gender Information Value Date Recorded Sex Assigned at Not on file Legal Sex Male 11:40 AM EDT Gender Identity Not on file Sexual Orientation Not on file Last Filed Vital Signs Vital Sign Reading Time Taken Comments Blood Pressure - - Pulse - - Temperature - - Respiratory Rate - - Oxygen Saturation - - Inhaled Oxygen Concentration - - Weight 90.7 kg (200 lb) 09/14/2024 9:37 AM EST Height 177.8 cm (5' 10 ) 09/14/2024 9:37 AM EST Body Mass Index 28.7 09/14/2024 9:37 AM EST Plan of Treatment Upcoming Encounters Date Type Department Care Team (Late st Contact Info) Description 11/16/2024 9:30 AM EDT Office Visit Orthopedic Surgery - [place] 250 175 [facility] 250 [place] [phone] Costa Blakely, DPM 175 [facility] [address] [place] [address] Health Maintenance Due Date Last Done Comments Diabetes: Annual GFR (Glomer ular Filtration Rate) 1982 Diabetes: Annual Foot Exam 1992 Diabetes: Annual Retina Eye Exam 1992 DTaP,Tdap,and Td Vaccines (1 - Tdap) 2001 Hepatitis B Vaccines (1 of 3 - 19+ 3-dose series) 2001 Pneumococcal Vaccine: Pediat rics (0 to 5 Years) and At-Risk Patients (6 to 64 Years) (1 of 2 - PCV) 2001 COVID-19 Vaccine (2023-2 5 season) 2024 Influenza Vaccine (#1) 2024 Cholesterol Screening (Lipid Panel) 05/29/2024 Depression Screening 05/29/2024 HIV Screening 05/29/2024 Hepatitis C Screening 05/29/2024 Social Influencers of Health Screening 05/29/2024 Diabetes: Annual Urine Albumin-Creatinine Ratio (uACR) 09/14/2024 Diabetes: Blood Sugar Contro l Test (HGBA1C) 09/14/2024 HIB Vaccines Aged Out No longer eligi ble based on patient's age to complete this topic HPV Vaccines Aged Out No longer eligi ble based on patient's age to complete this topic Hepatitis A Vaccines Aged Out No long er eligible based on patient's age to complete this topic IPV Vaccines Aged Out No longer eligi ble based on patient's age to complete this topic MMR Vaccines Aged Out No longer eligi ble based on patient's age to complete this topic Meningococcal ACWY Vaccine Aged Out N o longer eligible based on patient's age to complete this topic Meningococcal B Vacine Aged Out No lo nger eligible based on patient's age to complete this topic RSV Immunization Patients Un minal 20 months Aged Out No longer eligible b ased on patient's age to complete this topic Varicella Vaccines Aged Out No longer eligible based on patient's age to complete this topic Insurance [facility] MEDICAID - [place] Care Teams Newspaper Distributor Supervisor Relationship Specialty Start Date End Date Tomy Cannon PA [address] [place] [phone] PCP - General 03/15/24
== END 2024-10-04 13:40 | disposition home or self-care (01) ==
PROVIDERS: PCP Physician Assistant; Visit Provider Internal Medicine
DX: I50.42 Chronic combined systolic (congestive) and diastolic (congestive) heart failure (principal); E11.65 Type 2 diabetes mellitus with hyperglycemia; F10.91 Alcohol use, unspecified, in remission
CPT/HCPCS: 99215

== ENCOUNTER → 2024-10-04 13:02 | Outpatient (BNVA) | payer OTHER, SELFPAY | PROVIDERS: PCP Physician Assistant; Visit Provider Internal Medicine ==

== ENCOUNTER 2024-10-05 08:33 | Outpatient (REF) | payer OTHER, SELFPAY ==
--- OUTSIDE RECORDS SUMMARY | 2024-10-05 09:01 | XMS_ITS | Clinical Summary ---
Author Organization [address] [place] [address] Address 175 [place] [address] Phone Care Team Providers Care Center Punch Operator Name Role Phone Tomy Cannon Primary Care Provider [phone] Allergies Active Allergy Reactions Criticality Noted Date [...] AM EST Office Visit Orthopedic Surgery - [place] 250 175 [facility] [address] [place] [phone] Costa Blakely DPM Controlled type 2 [...] AM EDT Office Visit Orthopedic Surgery - [place] 250 175 [facility] 250 [place] [phone] Costa Blakely, DPM 175 [facility] [address] [place] [address] Health Maintenance Due Date Last Done Comments [...] patient's age to complete this topic Insurance [facility] [place]ICAID - [place] Care Teams Center Punch Operator Relationship Specialty Start Date End Date Tomy Cannon PA [address] [place] [phone] PCP - General 03/15/24
--- OUTSIDE RECORDS SUMMARY | 2024-10-05 09:01 | XMS_ITS | Encounter Summary ---
Author Organization [employer] Address [address] [place] [address] Care Team Providers Care Guide Setter Name Role Phone Tomy Cannon Primary Care Provider [phone] Reason for Visit * Reason Comments DM Foot Care Encounter Details Date Type Department Care Team (Late st Contact Info) Description 09/14/2024 9:45 AM EST Office Visit Orthopedic Surgery - [place] [address] [phone] Costa Blakely DPM [address] [address] Controlled type 2 diabetes mellitus with diabetic [...] is 145 but cannot recall his most [id number] ROS: GENERAL: Pt denies nausea, fever, vomiting, [...] Sharp/dull sensation intact, protective sensation diminished on [place]. Multiple peripheral neuropathies bilaterally ORTHOPEDIC: Good muscle [...] polyneuropathy, without long-term current use of insulin ([facility]) 2. Neuropathy 3. Onychomycosis 4. Callus 5. Localized edema 6. Metatarsalgia of both feet 7. Midfoot ulceration, right, with fat layer exposed ([facility]) PLAN: Pt was seen and examined, history [...] AM EDT Office Visit Orthopedic Surgery - [place] 250 175 [facility] 250 [place] [phone] Costa Blakely, DPGuerrero 175 [facility] 250 [place] [address] documented as of this encounter Visit Diagnoses Diagnosis Controlled type 2 diabetes mellitus with diabetic polyneuropathy, without long- term current use of insulin (CMS/HCC)- Primary Neuropathy Mononeuritis of unspecified site Onychomycosis Dermatophytosis of nail Callus Corns and callosities Localized edema Edema Metatarsalgia of both feet Midfoot ulceration, right, with fat layer exposed (CMS/[facility]) documented in this encounter Orders General Supply Count Last Ordered Date First Or dered Date DIABETIC CUSTOM MOLDED SHOE WITH INSERTS 1 09/14/2024 documented in this encounter Care Teams Guide Setter Relationship Specialty Start Date End Date Tomy Cannon PA [address] [place] [phone] PCP - General 03/15/24 documented as of this encounter
[2024-10-05 10:07] LABS: Hemoglobin 11.4 g/dl (14.0-18.0); Mean Corpuscular HGB Conc 31.7 g/dl (31.0-36.0); Mean Platelet Volume 10.7 fL (9.4-12.4); Platelet Count 140 X10*3/uL (160-400); Red Blood Count 4.39 X10*6/uL (4.60-5.80); Red Cell Distribution Width 15.5 % (11.0-16.0); White Blood Count 6.9 X10*3/uL (4.8-10.8)
[2024-10-05 10:44] LABS: Alanine Aminotransferase 36 U/L (0-40); Albumin Level 2.9 g/dL (3.5-5.0); Alkaline Phosphatase 101 U/L (39-117); Anion Gap 9 (12-20); Aspartate Amino Transferase 41 U/L (5-37); Bilirubin Total 0.5 mg/dL (0.0-1.0); Blood Urea Nitrogen 31 mg/dL (9-16); Calcium 8.9 mg/dL (8.4-10.2); Carbon Dioxide 28 mmol/L (22-29); Chloride 109 mmol/L (96-108); Estimated Glomerular Filt Rate > 60; Glucose Fasting 188 mg/dL (60-99); Magnesium 1.7 mg/dL (1.6-2.6); Potassium 3.9 mmol/L (3.3-5.1); Sodium 142 mmol/L (135-145); Total Protein 7.4 g/dL (6.5-8.0)
== END 2024-10-05 08:34 | disposition home or self-care (01) ==
LOC: HO.LAB 08:33
PROVIDERS: Absent Provider Internal Medicine; PCP Physician Assistant; Visit Provider Physician Assistant
DX: I50.41 Acute combined systolic (congestive) and diastolic (congestive) heart failure (principal); E83.42 Hypomagnesemia
CPT/HCPCS: 36415; 80053; 83735; 85027

== ENCOUNTER 2024-10-16 17:15 | Inpatient (IN) | payer OTHER, SELFPAY ==
--- NOTE | ~2024-10-16 | XR_ITS ---
CLINICAL HISTORY: concern for osteo of the lateral aspect 5th met 3 view right foot Comparison: CR/SR - XR FOOT RT 2V - 06/20/24 11:01 EST Findings: Bones intact. No dislocations. Moderate soft tissue swelling /defect at the 5th metatarsophalangeal joint. The underlying osseous structures are intact. No definite erosive changes. No ankle effusion. No radiopaque foreign body. IMPRESSION: 1. Moderate soft tissue swelling/defect at the region of 5th metatarsophalangeal joint. No underlying bony erosive changes to suggest osteomyelitis. This document has been electronically signed by: Destiny Griggs MD on 10/16/2024 19:06:27
--- NOTE | ~2024-10-16 | NM_ITS ---
EXAMINATION: BONE SCAN OF BOTH FEET CLINICAL INFORMATION: Right foot fifth metatarsal swelling rule out osteomyelitis. Patient has been treated with antibiotics several times. COMPARISON: Right foot 10/16/2024 TECHNIQUE: Multiple gamma scintillation camera images of the both feet as three-phase imaging following the intravenous administration of 30 mCi Tc-99m MDP. FINDINGS: On first phase of bone scan there is increased perfusion seen to distal right lateral foot and right ankle. Normal flow seen in the left foot and left ankle. On second phase of bone scan there is increased blood pool activity seen in the right lateral foot and fifth digit. The left foot appears unremarkable On third phase of bone scan there is mild soft tissue activity seen in right proximal first MTP joint and fifth distal fifth metatarsal soft tissues. There is mild focal activity seen in left first MTP joint and distal fifth metatarsal. These are most likely related to cellulitis or inflammatory changes. No focal intense activity seen in any of the digits to suspect osteomyelitis. NM/NM bone scan limited area IMPRESSION: Abnormal first of facial bone scan right lateral foot and right ankle. Mild soft tissue activity seen in the distal fifth metatarsal slightly greater on the right and left and MTP joints of first digit both feet. The above findings are suspicious for cellulitis or inflammatory process. Osteomyelitis is considered unlikely at this time. On the right foot x-ray there is moderate exophytic soft tissue swelling along the fifth MTP joint. Defect seen along the medial distal end of fifth metatarsal on x-rays of 10/16/2024 appears similar to the x-ray of 06/20/2024 and does not represent osteomyelitis. It is likely osteopenia. Electronically signed by: Maynor Barron MD 10/19/2024 04:45 PM [facility]
--- NOTE | ~2024-10-16 | XR_ITS ---
EXAMINATION: XR CHEST CLINICAL INFORMATION: dyspnea COMPARISON: Chest x-ray 08/28/2024. TECHNIQUE: Frontal view of the chest was obtained. FINDINGS: The lungs are hypoexpanded but clear. Heart size is borderline normal. Pulmonary vascularity is normal. No pleural effusion or thickening. No gross bony abnormality. XR/XR chest 1V IMPRESSION: Unremarkable chest exam. No change from 08/28/2024. Electronically signed by: Maynor Barron MD 10/17/2024 11:48 AM EST
[2024-10-16 17:57] VITALS: BP 143/102; PULSE 97; RESP 16; TEMP 36.3; O2SAT 99; BMI 29.5
--- NOTE | 2024-10-16 17:57 | ED_ITS ---
HPI - General Adult General Chief complaint: General Medical Stated complaint: blister on right ft bleeding happened last yr also Time Seen by Provider: 10/17/24 11:14 Source: patient Mode of arrival: ambulatory Limitations: no limitations History of Present Illness ED Provider: Dr. Paul HPI narrative: 44-year-old male past medical history significant for type 2 diabetes foot abscess cellulitis of the feet diabetic foot ulcers congestive heart failure alcohol use disorder who presents to the emergency department with right foot ulceration and infection patient has buckling along the 5th metatarsal with pain to the areas similar to when he was admitted last year in August. Patient also was complaining of some shortness of breath the patient had x-ray and labs done while in triage patient has not had a chest x-ray or BNP Related Data Home Medications ?Medication ?Instructions ?Recorded ?Confirmed multivitamin 1 tab PO DAILY 02/16/24 10/04/24 carvedilol 3.125 mg tablet 3.125 mg PO BID 05/09/24 10/04/24 insulin lispro 100 unit/mL See Protocol subcut TIDAC 08/22/24 10/04/24 subcutaneous pen Previous Rx's ?Medication ?Instructions ?Recorded blood-glucose meter,continuous #1 ea 01/04/24 (FreeStyle Elaine 3 Burgess) blood-glucose sensor (FreeStyle #1 ea 04/10/24 Elaine 3 Sensor device) albuterol sulfate 90 mcg/actuation 1 inh inhalation QID PRN shortness 07/14/24 aerosol inhaler of breath or wheezing 30 days #8.5 grams furosemide 80 mg tablet 80 mg PO DAILY #30 tabs 08/29/24 insulin glargine 100 unit/mL (3 16 unit (0.16 mL) subcut BEDTIME 08/29/24 mL) subcutaneous pen (Lantus 90 days #28.8 mL Solostar U-100 Insulin) blood-glucose sensor (FreeStyle #2 ea 08/30/24 Elaine 3 Sensor device) pen needle, diabetic 32 gauge x #1,200 ea 09/17/24 (BD Lula 2nd Gen Pen Needle) spironolactone 25 mg tablet 25 mg PO DAILY 30 days #30 tabs 09/20/24 (Aldactone) sacubitril 24 mg-valsartan 26 mg 1 tab PO BID #60 tabs 10/09/24 tablet (Entresto) Allergies Allergy/AdvReac Type Severity Reaction Status Date / Time metformin AdvReac Intermediate GI side Verified 10/16/24 18:00 effects Review of Systems 2 Review of Systems: Review of systems: General: Patient denies any fever chills recent illness or falls Musculoskeletal: Denies back pain or body aches or other injuries HEENT: denies headache, runny nose, ear pain Respiratory: shortness of breath, no cough Cardiovascular: no chest pain or palpitations : denies dysuria, frequency Abdomen: no nausea vomiting denies abdominal pain Extremities: right 5th metatarsal pain and swelling Skin: no diaphoresis Yes all other systems are reviewed and are negative [facility] Past Medical History Medical History (Updated 10/17/24 @ 12:25 by Rafa Paul DO) DMII (diabetes mellitus, type 2) Cardiomyopathy Foot callus Cellulitis of foot Chronic combined systolic and diastolic CHF (congestive heart failure) Palpitation JOLIE (generalized anxiety disorder) MDD (major depressive disorder), recurrent episode, moderate Diabetic foot ulcer Cardiomyopathy Alcohol use disorder in remission HTN (hypertension) CHF (congestive heart failure) Small bowel obstruction Hx of intestinal obstruction Erectile disorder due to medical condition in male patient Knee pain, right Surgical History Hx of esophagogastroduodenoscopy History of appendectomy History of hernia surgery Family History Family History Mother Diabetes High blood pressure Social History Social History Household Members: Spouse, Family and Children Household Members Other:: three kids and Housing: House Do you presently have visiting nurse or other home services: No Alcohol intake: never Patient Tobacco Use Status: Never used Tobacco Tobacco use type: Cigarette Smoked in Last 30 Days: No e-Cigarette/Vaping Use: Never Used Second Hand Smoke Exposure: No Use of substances other than those prescribed or required for medical reasons: No Advance Directives: Yes Advance Directives on File: Yes Advance Directives Date on File: 12/16/23 service: No Current occupational status: employed Current occupation: right handed Cognitive needs: No Hearing needs: No Vision needs: No Physical Exam ED Vital Signs: Vital Signs - 24 hr 10/16/24 17:57 10/17/24 00:07 10/17/24 05:32 Temperature 97.3 F 98.9 F 98.1 F Pulse Rate 97 95 92 Respiratory Rate 16 17 17 Blood Pressure 143/102 H 126/85 133/91 H Pulse Oximetry 99 95 98 Oxygen Delivery Method Room Air Room Air Room Air 10/17/24 09:32 10/17/24 11:19 Temperature 98.1 F 98.5 F Pulse Rate 103 H 104 H Respiratory Rate 18 16 Blood Pressure 123/81 142/103 H Pulse Oximetry 96 98 Oxygen Delivery Method Room Air Room Air BMI result Body Mass Index 29.5 Appearance: Alert. Oriented X3. No acute distress. Eyes: Pupils equal, round and reactive to light. ENT: Pharynx normal. Neck: Normal inspection. Neck supple. CVS: Normal heart rate and rhythm. Pulses normal. Respiratory: No respiratory distress. Breath sounds rales in bases Abdomen: Soft and nontender. Skin: right foot along the 5th metatarsal with large callous blood formation and surrounding cellulitisAppearance: Course Course Course Narrative: RME performed by Nancy Araujo PA-C. Patient is a 44 year old assigned male at presenting to the emergency department with right foot pain / swelling. Patient states that he has been having issues with a right 5th toe injury that is swelling / worse appearing. Detailed physical exam and review of systems are deferred to the obiee consultant. Labs and imaging ordered. Patient placed back in the waiting room pending room availability and results. Reevaluation(s) Reevaluation #1: repeat RME 1106am - DM, cardiomyopathy EF 20% no ICD, DM, TORIBIO, low magnesium he was just treated for R foot abscess now with R 5th toe pain and bleeding, notes he still has increased dyspnea on exertion, he notes he has gained 10lbs in the past 5 days, he has increased his lasix to 80mg from 20mg 2 weeks ago. He notes R foot pain, swelling and bleeding on callous not filled with purulence. He has had a fever. At this time repeat labs, CXR, EKG, empiric antibiotics, brought back to room 1 now this is a RAPID medical screening exam the rest of the history and physical exam is to be done by the main provider. Reevaluation #2: Patient's x-ray does not look worse than previous but his BNP is higher than ever before I will give the patient a dose of IV Lasix I will admit the patient to the medicine service already discussed the case with surgery Time: 12:20 Medications Administered Generic Name Dose Route Start Last Admin Trade Name [place] PRN Reason Stop Dose Admin Vancomycin HCl 2,000 mg in 500 mls @ 250 mls/hr 10/17/24 11:09 10/17/24 12:05 Vancomycin/Ns IV 10/17/24 13:08 250 mls/hr ONCE ONE Administration Discontinued Medications Generic Name Dose Route Start Last Admin Trade Name Freq PRN Reason Stop Dose Admin Piperacillin Sod/Tazobactam 50 mls @ 100 mls/hr 10/17/24 11:09 10/17/24 12:05 Sod 3.375 gm/ Sodium Chloride IV 10/17/24 11:38 Infused ONCE ONE Infusion Morphine Sulfate 4 mg 10/17/24 11:26 10/17/24 11:44 Morphine Sulfate 4 Mg/Ml Cartridge IVPUSH 10/17/24 11:27 4 mg ONCE ONE Administration Protocol Medical Decision Making Medical Decision Making [facility] Narrative: patient has been here for over 17 hours prior to being seen by me he did have x-ray of the foot and labs do not show osteomyelitis but with a significant infection being diabetic patient was started on vancomycin and Zosyn patient did not get a workup for you think the patient would benefit from admission I will discuss the case with surgery and the hospitalist. Differential Diagnosis Differential Diagnoses: The differential diagnosis associated with the presentation includes cellulitis concern for deep space infection of the foot diabetic foot ulcer with CHF Consult Healthcare Provider Management of the patient was discussed with: Hospitalist and Capsule Inspector I discussed the foot ulcer with Dr. Bettencourt and will admit to medicine Lab Data [facility] Lab Attestation statement: I reviewed the patient's lab results. 10/17/24 11:33 10/17/24 11:33 Labs: Lab Results 10/16/24 10/17/24 Range/Units 18:17 11:33 WBC 8.6 8.6 (4.8-10.8) X10*3/uL RBC 4.46 L 4.41 L (4.60-5.80) X10*6/uL Hgb 11.7 L 11.3 L (14.0-18.0) g/dl Hct 36.2 L 35.3 L (42.0-52.0) % MCV 81.2 80.0 (80.0-98.0) fL MCH 26.2 L 25.6 L (27.0-33.0) pg MCHC 32.3 32.0 (31.0-36.0) g/dl RDW 15.5 15.3 (11.0-16.0) % Plt Count 158 L 159 L (160-400) X10*3/uL MPV 11.1 10.6 (9.4-12.4) fL Immature Gran % (Auto) 0.3 0.2 (0.0-0.4) % Neut % (Auto) 68.9 77.8 H (45-73) % Lymph % (Auto) 19.3 L 12.1 L (20-40) % [place] % (Auto) 9.3 8.0 (2-11) % Eos % (Auto) 1.7 1.4 (0-4) % Baso % (Auto) 0.5 0.5 (0-2) % Lymph # (Auto) 1.7 1.0 L (1.2-4.9) X10*3/uL [place] # (Auto) 0.8 0.7 (0.1-1.2) X10*3/uL Eos # (Auto) 0.2 0.1 (0.0-0.4) X10*3/uL Baso # (Auto) 0.0 0.0 (0.0-0.2) X10*3/uL Abs Immat Gran (auto) 0.03 0.02 (0.00-0.03) X10*3/uL Absolute Neuts (auto) 6.0 6.7 (2.0-8.3) x10*3/uL Absolute Nucleated RBC 0.000 0.000 (0.0-0.012) X10*3/uL Nucleated RBC % (auto) 0.0 0.0 (0.0-0.2) /100WBC ESR 48 H (0-15) MM/HR PT 13.2 H (10.9-12.4) SEC INR 1.1 (0.9-1.1) APTT 30.2 (26.0-36.8) SEC Sodium 140 137 (135-145) mmol/L Potassium 4.8 D 4.3 (3.3-5.1) mmol/L Chloride 108 106 (96-108) mmol/L Carbon Dioxide 24 25 (22-29) mmol/L Anion Gap 13 10 L (12-20) BUN 30 H 26 H (9-16) mg/dL Creatinine 1.40 1.30 (0.5-1.4) mg/dL Estim Creat Clear Calc 78.8 84.9 Estimated GFR 56 > 60 Random Glucose 197 H 286 H (60-115) mg/dL Lactic Acid 1.0 (0.5-2.0) mmol/L Calcium 8.6 8.6 (8.4-10.2) mg/dL Magnesium 1.7 1.6 (1.6-2.6) mg/dL Total Bilirubin 0.5 (0.0-1.0) mg/dL AST 38 H (5-37) U/L ALT 31 (0-40) U/L Alkaline Phosphatase 103 (39-117) U/L Troponin I High Sens 4.5 (<3.5-35.0) ng/L C-Reactive Protein 3.24 H 4.63 H (< or = 0.50) mg/dL B-Natriuretic Peptide 1028 H (<100) pg/mL Total Protein 7.4 (6.5-8.0) g/dL Albumin 2.9 L (3.5-5.0) g/dL Independent Interpretation I performed an independent interpretation of an: EKG Interpretation: Rate 101 sinus tachycardia normal intervals no signs of ischemia unchanged from previous interpreted by me Radiology Impression Discussion of test interpretation with radiology: I have reviewed the radiologist's reading. External Record Review External record reviewed: Inpatient record, Office record, Outpatient record, Prior outpatient labs and Primary care record Prescription Management I considered prescription management with: Pain Medication and Antibiotic Chronic Conditions Patient?s care impacted by: Diabetes, Hypertension and Other Discharge Plan Discharge Clinical Impression: Diabetic foot ulcer, Diabetic foot ulcer associated with type 2 diabetes mellitus, Cellulitis of foot, right, Acute exacerbation of CHF (congestive heart failure) Patient Disposition: Admitted As Inpatient Prescriptions: No Action (DME) eFuneral Elaine 3 Sensor Device See Rx Instructions .Route Qty: 1 3RF Rx Instructions: As directed albuterol sulfate 90 mcg/actuation HFA aerosol inhaler 1 inh inhalation QID PRN (Reason: shortness of breath or wheezing) 30 Days Qty: 8.5 0RF (DME) FreeStyle Elaine 3 Sensor Device See Rx Instructions .Route Qty: 2 6RF Rx Instructions: As directed (DME) pen needle, diabetic [BD Lula 2nd Gen Pen Needle] 32 gauge x 5/32 needle See Rx Instructions .ROUTE DAILY Qty: 1200 1RF Rx Instructions: 4 times per day sacubitril-valsartan [Entresto] 24-26 mg tablet 1 tab PO BID Qty: 60 5RF insulin lispro 100 unit/mL insulin pen See Protocol subcut TIDAC Protocol: Insulin Correction Scale Less than or equal to 110 ---- Give (units): 0 111 to 150 Give (units): 0 151 to 200 Give (units): 2 201 to 250 Give (units): 4 251 to 300 Give (units): 6 301 to 350 Give (units): 8 Greater than 350 Give (units): 10 Call MD if Blood Glucose > : 350 Rx Instructions: Breakfast, Lunch and Dinner insulin glargine [Lantus Solostar U-100 Insulin] 100 unit/mL (3 mL) insulin pen 16 unit subcut BEDTIME 90 Days Qty: 28.8 3RF furosemide 80 mg tablet 80 mg PO DAILY Qty: 30 0RF (DME) FreeStyle Elaine 3 Burgess Misc See Rx Instructions .Route Qty: 1 0RF Rx Instructions: As directed multivitamin Tablet 1 tab PO DAILY carvedilol 3.125 mg tablet 3.125 mg PO BID spironolactone [Aldactone] 25 mg tablet 25 mg PO DAILY 30 Days Qty: 30 3RF Print Language: Salvadorean
[2024-10-16 18:28] LABS: MANUAL DIFF FLAG NO
[2024-10-16 18:34] LABS: Basophils Percent Auto 0.5 % (0-2); Eosinophils Absolute Auto 0.2 X10*3/uL (0.0-0.4); Eosinophils Percent Auto 1.7 % (0-4); Hematocrit 36.2 % (42.0-52.0); Hemoglobin 11.7 g/dl (14.0-18.0); Imm Gran Abs Auto 0.03 X10*3/uL (0.00-0.03); Imm Gran Pct Auto 0.3 % (0.0-0.4); Lymphocytes Absolute Auto 1.7 X10*3/uL (1.2-4.9); Lymphocytes Percent Auto 19.3 % (20-40); Mean Corpuscular HGB Conc 32.3 g/dl (31.0-36.0); Mean Corpuscular Hemoglobin 26.2 pg (27.0-33.0); Mean Corpuscular Volume 81.2 fL (80.0-98.0); Mean Platelet Volume 11.1 fL (9.4-12.4); Monocytes Absolute Auto 0.8 X10*3/uL (0.1-1.2); Monocytes Percent Auto 9.3 % (2-11); Neutrophils Percent Auto 68.9 % (45-73); Platelet Count 158 X10*3/uL (160-400); Red Blood Count 4.46 X10*6/uL (4.60-5.80); Red Cell Distribution Width 15.5 % (11.0-16.0); White Blood Count 8.6 X10*3/uL (4.8-10.8)
[2024-10-16 18:41] LABS: INTERNATIONAL NORM RATIO 1.1 (0.9-1.1); Prothrombin Time 13.2 SEC (10.9-12.4)
[2024-10-16 18:43] LABS: Partial Thromboplastin Time 30.2 SEC (26.0-36.8)
[2024-10-16 18:48] LABS: Alanine Aminotransferase 31 U/L (0-40); Albumin Level 2.9 g/dL (3.5-5.0); Alkaline Phosphatase 103 U/L (39-117); Anion Gap 13 (12-20); Aspartate Amino Transferase 38 U/L (5-37); Bilirubin Total 0.5 mg/dL (0.0-1.0); Blood Urea Nitrogen 30 mg/dL (9-16); C Reactive Protein 3.24 mg/dL (< or = 0.50); Calcium 8.6 mg/dL (8.4-10.2); Carbon Dioxide 24 mmol/L (22-29); Chloride 108 mmol/L (96-108); Creatinine Clr Calc Pharmacy 78.8; Estimated Glomerular Filt Rate 56; Glucose Random 197 mg/dL (60-115); Magnesium 1.7 mg/dL (1.6-2.6); Potassium 4.8 mmol/L (3.3-5.1); Sodium 140 mmol/L (135-145); Total Protein 7.4 g/dL (6.5-8.0)
[2024-10-16 19:15] LABS: Erythrocyte Sedimentation Rate 48 MM/HR (0-15)
--- OUTSIDE RECORDS SUMMARY | 2024-10-16 19:26 | XMS_ITS | Clinical Summary ---
Author Organization [address] [place] [address] Address [address] [place] [address] Phone Care Team Providers Care Electric Trucker Name Role Phone Tomy Cannon Primary Care Provider [phone] Allergies Active Allergy Reactions Criticality Noted Date [...] AM EST Office Visit Orthopedic Surgery - [place] [address] [facility] [address] [place] [phone] Costa Blakely DPM Controlled type 2 [...] AM EDT Office Visit Orthopedic Surgery [facility] [place] [address] [facility] [address] [place] [id number] Costa Blakely, DPM [address] [facility] [address] [place] [address] Health Maintenance Due Date Last Done Comments [...] patient's age to complete this topic Insurance [facility] MEDICAID - [place] Care Teams Electric Trucker Relationship Specialty Start Date End Date Tomy Cannon PA [address] [place] [id number] PCP - General 03/15/24
[2024-10-17] VITALS (9 sets, daily range): BP systolic 105–142; BP diastolic 67–103; PULSE 91–105; RESP 16–18; TEMP 36.1–37.2; O2SAT 95–99
--- NOTE | 2024-10-17 11:03 | ECG_ITS ---
Test Reason : Dyspnea Blood Pressure : */* mmHG Vent. Rate : 101 BPM Atrial Rate : 101 BPM P-R Int : 158 ms QRS Dur : 96 ms QT Int : 370 ms P-R-T Axes : 48 -25 52 degrees QTcB Int : 479 ms Sinus tachycardia Possible Left atrial enlargement Minimal voltage criteria for LVH, may be normal variant ( Eriberto product ) Borderline ECG When compared with ECG of 28-Aug-2024 12:00, No significant change was found Referred By: Heather Kwan Electronically Signed By: CATRINA ACEVES MD
--- NOTE | 2024-10-17 11:04 | PC.NURSE ---
called back into triage to be evaluated by Dr. Kwan.
--- NOTE | 2024-10-17 11:05 | PC.NURSE ---
10 pound weight gain in last week. lasix 20 increased to 80 mg 2 weeks ago along with carvedolol.
[2024-10-17 11:41] LABS: MANUAL DIFF FLAG NO
[2024-10-17] MEDS: Morphine Sulfate 4 MG/ML CARTRIDGE IVPUSH (11:44)
[2024-10-17] MEDS: Piperacillin Sodium/Tazobactam 3.375 GM in 0.9 % Sodium Chloride 50 ML IV ×3 (11:45→23:45)
[2024-10-17 11:47] LABS: Basophils Percent Auto 0.5 % (0-2); Eosinophils Absolute Auto 0.1 X10*3/uL (0.0-0.4); Eosinophils Percent Auto 1.4 % (0-4); Hematocrit 35.3 % (42.0-52.0); Hemoglobin 11.3 g/dl (14.0-18.0); Imm Gran Abs Auto 0.02 X10*3/uL (0.00-0.03); Imm Gran Pct Auto 0.2 % (0.0-0.4); Lymphocytes Percent Auto 12.1 % (20-40); Mean Corpuscular Hemoglobin 25.6 pg (27.0-33.0); Mean Platelet Volume 10.6 fL (9.4-12.4); Monocytes Absolute Auto 0.7 X10*3/uL (0.1-1.2); Neutrophils Absolute Auto 6.7 x10*3/uL (2.0-8.3); Neutrophils Percent Auto 77.8 % (45-73); Platelet Count 159 X10*3/uL (160-400); Red Blood Count 4.41 X10*6/uL (4.60-5.80); Red Cell Distribution Width 15.3 % (11.0-16.0); White Blood Count 8.6 X10*3/uL (4.8-10.8)
[2024-10-17] MEDS: vancomycin/NS 2,000 MG/500 ML PLAST..BAG 250 MG IV (12:05)
[2024-10-17 12:07] LABS: Anion Gap 10 (12-20); Blood Urea Nitrogen 26 mg/dL (9-16); C Reactive Protein 4.63 mg/dL (< or = 0.50); Calcium 8.6 mg/dL (8.4-10.2); Carbon Dioxide 25 mmol/L (22-29); Chloride 106 mmol/L (96-108); Creatinine Clr Calc Pharmacy 84.9; Estimated Glomerular Filt Rate > 60; Glucose Random 286 mg/dL (60-115); Magnesium 1.6 mg/dL (1.6-2.6); Potassium 4.3 mmol/L (3.3-5.1); Sodium 137 mmol/L (135-145)
--- NOTE | 2024-10-17 12:07 | PC.NURSE ---
pt is alert and oriented, skin appropriate for ethnicity, respirations even and unlabored, ls diminished, sating at 96-97% on room air, pt reports hx of chf on Lasix 80mg but still feeling sob, lower extremities swollen almost to the knees, peding edema +2, legs are warm to the touch and the outside of the left foot large blister and the top of the foot red in color, pt reports pain at 6/10 with ambulation, faint palpable pedal pulses
[2024-10-17 12:14] LABS: B Type Natriuretic Peptide 1028 pg/mL (<100)
[2024-10-17 12:15] LABS: Troponin-I High Sensitivity 4.5 ng/L (<3.5-35.0)
[2024-10-17 12:25] LABS: Erythrocyte Sedimentation Rate 55 MM/HR (0-15)
[2024-10-17] MEDS: Furosemide 100 MG/10 ML VIAL 80 MG IVPUSH (12:49)
--- NOTE | 2024-10-17 13:04 | PM.IMHP ---
History of Present Illness Date of Service: 10/17/24 Attending physician on admission: [facility] Chief Complaint: Leg swelling and right foot sore Pt is a 44-year-old male with a PMH significant for?HFrEF (EF 20-25%), non-ischemic cardiomyopathy, insulin-dependent type 2 diabetes, HTN, alcohol use disorder in remission, chronic diabetic foot ulcers, who presents to the ED with?increased lower leg swelling and right sore. Reports increased leg swelling, SOB, and non-productive cough for the past 1.[address] Ritter in Cardiology who told pt to increase Lasix from 20 mg to 80 mg, though increased dosage has seemingly had little effect. Pt endorses 10 lb weight gain in the last 5 days. Yesterday reports walking around a lot yesterday, and last night when removed his compression stockings a large blister on the side of his right foot formed. Had a similar foot injury in August of this year that required hospitalization for diabetic foot infection. Reports subjective fever and chills x2 days. No nausea, vomiting, abdominal pain. Denies chest pain/pressure, palpitations. Of note, follows with Wound Care for chronic right diabetic foot ulcer. In the ED pt was tachycardia up to 104 and hypertensive up to 142/103. Labs were significant for CRP 4.63, ESR 55, and BNP 1028 (previous 434 on 08/28). No leukocytosis. Stable H&H. No significant electrolyte abnormalities. Renal and hepatic function baseline. X-ray of right foot with moderate soft tissue swelling/defect in 5th joint, but negative for acute osteomyelitis. CXR unremarkable. EKG demonstrated sinus tachycardia of 101 without evidence of significant ST elevations or depressions. Pt was treated with morphine, furosemide 80 mg IV, vancomycin, and Zosyn. Pt will be admitted to the hospital for treatment and further evaluation of acute HFrEF exacerbation as well as right foot cellulitis with possible abscess. Review of Systems Review of Systems: Negative except for that which is stated in the HPI. [facility] Medical History DMII (diabetes mellitus, type 2) Cardiomyopathy Foot callus Cellulitis of foot Chronic combined systolic and diastolic CHF (congestive heart failure) Palpitation JOLIE (generalized anxiety disorder) MDD (major depressive disorder), recurrent episode, moderate Diabetic foot ulcer Cardiomyopathy Alcohol use disorder in remission HTN (hypertension) CHF (congestive heart failure) Small bowel obstruction Hx of intestinal obstruction Erectile disorder due to medical condition in male patient (~10/17/24) Knee pain, right Family History Mother Diabetes High blood pressure Surgical History Hx of esophagogastroduodenoscopy History of appendectomy History of hernia surgery Social History Household Members: None Household Members Other:: three kids and Housing: House Do you presently have visiting nurse or other home services: No Alcohol intake: never Patient Tobacco Use Status: Never used Tobacco Tobacco use type: Cigarette Smoked in Last 30 Days: No e-Cigarette/Vaping Use: Never Used Patient Interested in Nicotine Replacement: No Patient Given Instructions on How to Stop Smoking: No Second Hand Smoke Exposure: No Use of substances other than those prescribed or required for medical reasons: No Currently Displaying Signs/Symptoms of Drug Intoxication Withdrawal: No Any prior treatment program specific to substance use: No Have you been hit, kicked, punched, or otherwise hurt by someone within the past year? If so, by whom?: No Do you feel safe in your current relationship?: No Current Relationship Is there a partner from a previous relationship who is making you feel unsafe now?: No Are you made to feel afraid or neglected: No Advance Directives: Yes Advance Directives on File: Yes Advance Directives Date on File: 12/16/23 Do you have a plan to hurt others: No Plan Recently lost weight without trying: No Eating poorly because of decreased appetite: No Nutrition Risks: No Nutritional Risk Poor oral hygiene: No service: No Current occupational status: employed Current occupation: right handed Cognitive needs: No Hearing needs: No Vision needs: No Meds Allergies Allergy/AdvReac Type Severity Reaction Status Date / Time metformin AdvReac Intermediate GI side Verified 10/16/24 18:00 effects Active Medications: Current Medications Vancomycin HCl (Vancomycin/Ns) 2,000 mg in 500 mls @ 250 mls/hr IV ONCE ONE Stop: 10/17/24 13:08 Last Admin: 10/17/24 12:05 Dose: 250 mls/hr Home Medications ?Medication ?Instructions ?Recorded ?Confirmed ?Last Taken ?Type multivitamin 1 tab PO DAILY 02/16/24 10/17/24 08/21/24 History carvedilol 3.125 mg tablet 12.5 mg PO BID 05/09/24 10/17/24 08/21/24 History insulin lispro 100 unit/mL See Protocol subcut TIDAC 08/22/24 10/17/24 08/21/24 History subcutaneous pen furosemide 80 mg tablet 80 mg PO DAILY PRN swelling/edema 10/17/24 10/17/24 Unknown History insulin glargine 100 unit/mL (3 18 unit subcut BEDTIME 10/17/24 10/17/24 Unknown History mL) subcutaneous pen (Lantus Solostar U-100 Insulin) Physical Exam Vital Signs and Narrative: Vital Signs: Last Vital Signs Temp 98.5 F 10/17/24 11:19 Pulse 92 10/17/24 12:47 Resp 18 10/17/24 12:47 BP 130/86 10/17/24 12:47 Pulse Ox 98 10/17/24 12:47 O2 Del Method Room Air 10/17/24 12:47 BMI result Body Mass Index 29.5 General: AOx3, no acute distress Resp: CTA bilaterally CVS: S1, S2, RRR. No JVD appreciated GI: +BS, NT, no distention Skin: Warm, dry Neuro: Cranial nerves II-XII grossly intact bilaterally. Motor grossly intact bilaterally Extremities: 3+ bilateral pitting edema. 4 cm hematoma/abscess on lateral side of right 5th digit with surrounding erythema, swelling, and warmth. Chronic ulcer on plantar aspect of right 5th digit. As pictured below Psych: Appropriate affect Results Labs 10/17/24 11:33 10/17/24 11:33 Labs: Laboratory Results - last 24 hr 10/16/24 10/17/24 18:17 11:33 MCV 81.2 80.0 MCH 26.2 L 25.6 L MCHC 32.3 32.0 RDW 15.5 15.3 Plt Count 158 L 159 L MPV 11.1 10.6 Immature Gran % (Auto) 0.3 0.2 Neut % (Auto) 68.9 77.8 H Lymph % (Auto) 19.3 L 12.1 L Sherman % (Auto) 9.3 8.0 Eos % (Auto) 1.7 1.4 Baso % (Auto) 0.5 0.5 Lymph # (Auto) 1.7 1.0 L Sherman # (Auto) 0.8 0.7 Eos # (Auto) 0.2 0.1 Baso # (Auto) 0.0 0.0 Abs Immat Gran (auto) 0.03 0.02 Absolute Neuts (auto) 6.0 6.7 Absolute Nucleated RBC 0.000 0.000 Nucleated RBC % (auto) 0.0 0.0 ESR 48 H 55 H PT 13.2 H INR 1.1 APTT 30.2 Anion Gap 13 10 L Estim Creat Clear Calc 78.8 84.9 Estimated GFR 56 > 60 Random Glucose 197 H 286 H Lactic Acid 1.0 Calcium 8.6 8.6 Magnesium 1.7 1.6 Total Bilirubin 0.5 AST 38 H ALT 31 Alkaline Phosphatase 103 C-Reactive Protein 3.24 H 4.63 H B-Natriuretic Peptide 1028 H Total Protein 7.4 Albumin 2.9 L Imaging Radiologist's Impressions: Impressions Chest X-Ray 10/17/24 11:30 IMPRESSION: Unremarkable chest exam. No change from 08/28/2024. Electronically signed by: Maynor Barron MD 10/17/2024 11:48 AM [facility] Assessment and Plan (1) Acute exacerbation of CHF (congestive heart failure): Status: Acute (2) Foot abscess, right: Status: Acute (3) Cellulitis of foot: Status: Acute Plan Pt is a 44-year-old male with a PMH significant for?HFrEF (EF 20-25%), non-ischemic cardiomyopathy, insulin-dependent type 2 diabetes, HTN, alcohol use disorder in remission, chronic diabetic foot ulcers, who presents to the ED with?increased lower leg swelling and right sore. Pt will be admitted to the hospital for treatment and further evaluation of acute HFrEF exacerbation as well as right foot cellulitis with possible abscess. Acute HFrEF exacerbation Increased LLE, SOB, non-productive cough, weight gain x1.5 weeks, elevated BNP Increased home Lasix from 20 mg to 80 mg without relief Pt given Lasix 80 mg IV in the ED Will treat with Lasix 40 mg IV b.i.d. Continue spironolactone, carvedilol, Entresto Follow I/O, lytes, daily weight Low-salt diet Cardiology consultation for medication management Monitor on telemetry Right foot cellulitis secondary to chronic diabetic foot ulcer Pt with large hematoma/abscess on right lateral aspect 5th digit Beside I&D by general surgery who noted pus in drainage No sepsis: Elevated HR, but no leukocytosis, fever, or tachypnea; lactic acid WNL Will treat with vancomycin and Zosyn, started 10/17/2024 General surgery consult Follow wound and blood cultures Insulin-dependent type 2 diabetes Sliding-scale insulin, Lantus Diabetic diet Alcohol use disorder In remission x1 year Full Code Attending:?Dr. Núñez DVT Prophylaxis: Lovenox Pt will require a hospitalization of at least two nights for treatment of?acute HFrEF exacerbation as well as right foot cellulitis with abscess secondary to chronic diabetic foot ulcer. Pt will require hospital level of care for administration of IV diuretics, IV antibiotics, and close monitoring of labs. Quality Stroke Does the patient have a stroke diagnosis?: No VTE Prior VTE?: No VTE Risk Level:: Medical - moderate - high VTE Device Contraindication: Treatment Not Indicated VTE Drug Contraindication: N/A - Med Ordered
--- NOTE | 2024-10-17 13:24 | PHA.MEDREC ---
Addendum entered by Jed Hernandez RPh 10/17/24 13:34: Reviewed by [facility]. Original Note: Pharmacy Consult ? Medication Reconciliation Pharmacy has completed the medication reconciliation. Spoke with patient to confirm. He reports taking furosemide prn for swelling, has been needing recently w/o effect. He takes 18 units at bedtime for lantus and sliding scale for lispro. He says his doctor told him on Wednesday to start taking 4 tabs of his carvedilol 3.125 mg BID due to his blood pressure (LF Mar 2024 x90 DS). He said the Jardiance is still on hold (has been for a few months now) and he is no longer taking midodrine. He took his medications yesterday morning, none today.
--- NOTE | 2024-10-17 14:35 | PM.CNGS ---
History of Present Illness Consult details Consult date: 10/17/24 Narrative: 44-year-old male with long history of CHF, ejection fraction 20-25% here in the ER because of worsening of bilateral lower extremity edema. He is also describing some shortness of breath. These symptoms seemed to have been worsening the past few days. Yesterday he also noticed this area of swelling on the lateral aspect of the right fore foot. This is the same area that I had debrided and drained for a bulla with an abscess in August,. Denies any recent trauma to this area. He also has had this thick callus on the lateral aspect of the right forefoot for a long time as well. He is also known diabetic but his blood sugars appeared to have been adequately controlled. Review of Systems Constitutional: Constitutional: Reports chills and Denies fever(s) Cardiovascular: Cardiovascular: Reports dyspnea and Reports dyspnea on exertion Respiratory: Respiratory: Denies cough, Reports dyspnea and Reports dyspnea on exertion Gastrointestinal: Gastrointestinal: Denies abdominal pain Genitourinary: Genitourinary: Denies difficulty urinating PMFSH Past Medical History Medical History DMII (diabetes mellitus, type 2) Cardiomyopathy Foot callus Cellulitis of foot Chronic combined systolic and diastolic CHF (congestive heart failure) Palpitation JOLIE (generalized anxiety disorder) MDD (major depressive disorder), recurrent episode, moderate Diabetic foot ulcer Cardiomyopathy Alcohol use disorder in remission HTN (hypertension) CHF (congestive heart failure) Small bowel obstruction Hx of intestinal obstruction Erectile disorder due to medical condition in male patient (~10/17/24) Knee pain, right Family History Family History Mother Diabetes High blood pressure Surgical History Surgical History Hx of esophagogastroduodenoscopy History of appendectomy History of hernia surgery Social History Social History Household Members: None Household Members Other:: three kids and Housing: House Do you presently have visiting nurse or other home services: No Alcohol intake: never Patient Tobacco Use Status: Never used Tobacco Tobacco use type: Cigarette Smoked in Last 30 Days: No e-Cigarette/Vaping Use: Never Used Patient Interested in Nicotine Replacement: No Patient Given Instructions on How to Stop Smoking: No Second Hand Smoke Exposure: No Use of substances other than those prescribed or required for medical reasons: No Currently Displaying Signs/Symptoms of Drug Intoxication Withdrawal: No Any prior treatment program specific to substance use: No Have you been hit, kicked, punched, or otherwise hurt by someone within the past year? If so, by whom?: No Do you feel safe in your current relationship?: No Current Relationship Is there a partner from a previous relationship who is making you feel unsafe now?: No Are you made to feel afraid or neglected: No Advance Directives: Yes Advance Directives on File: Yes Advance Directives Date on File: 12/16/23 Do you have a plan to hurt others: No Plan Recently lost weight without trying: No Eating poorly because of decreased appetite: No Nutrition Risks: No Nutritional Risk Poor oral hygiene: No service: No Current occupational status: employed Current occupation: right handed Cognitive needs: No Hearing needs: No Vision needs: No Meds Allergies Allergy/AdvReac Type Severity Reaction Status Date / Time metformin AdvReac Intermediate GI side Verified 10/16/24 18:00 effects Active Medications: Current Medications Acetaminophen (Acetaminophen 325 Mg Tablet) 650 mg PO Q6H PRN PRN Reason: Pain, Mild 1-3,fever,headache Calcium Carbonate (Calcium Carbonate 750 Mg Tab.Chew) 750 mg PO Q4H PRN PRN Reason: Heartburn Enoxaparin Sodium (Enoxaparin Sodium 40 Mg/0.4 Ml Syringe) 40 mg SUBCUT Q24H JIMENEZ Furosemide (Furosemide 40 Mg/4 Ml Vial) 40 mg IVPUSH BID@0900,1800 JIMENEZ; Protocol Piperacillin Sod/Tazobactam (Sod 3.375 gm/ Sodium Chloride) 50 mls @ 100 mls/hr IV Q6H JIMENEZ Ketorolac Tromethamine (Ketorolac Tromethamine 30 Mg/Ml Vial) 30 mg IVPUSH Q6H PRN PRN Reason: Pain, Moderate(Pain Scale 4-6) Stop: 10/22/24 14:12 Magnesium Hydroxide (Milk Of Magnesia 30 Ml Oral.Susp) 30 ml PO DAILY PRN PRN Reason: Constipation Melatonin (Melatonin 3 Mg Tablet) 6 mg PO BEDTIME PRN PRN Reason: Insomnia Morphine Sulfate (Morphine Sulfate 4 Mg/Ml Cartridge) 2 mg IVPUSH Q4H PRN; Protocol PRN Reason: Pain, Severe (Pain Scale 7-10) Ondansetron HCl (Ondansetron Hcl 4 Mg/2 Ml Vial) 4 mg IVPUSH Q8H PRN PRN Reason: Nausea and Vomiting Pharmacy Consult (Consult Rx Vancomycin Dosing) 1 each MISCELLANE DAILY PRN PRN Reason: Consult order Sodium Chloride (0.9 % Sodium Chloride Flush 3 Ml Syringe) 3 ml IVFLUSH [facility] Medications ?Medication ?Instructions ?Recorded ?Confirmed ?Last Taken ?Type multivitamin 1 tab PO DAILY 02/16/24 10/17/24 08/21/24 History carvedilol 3.125 mg tablet 12.5 mg PO BID 05/09/24 10/17/24 08/21/24 History insulin lispro 100 unit/mL See Protocol subcut TIDAC 08/22/24 10/17/24 08/21/24 History subcutaneous pen furosemide 80 mg tablet 80 mg PO DAILY PRN swelling/edema 10/17/24 10/17/24 Unknown History insulin glargine 100 unit/mL (3 18 unit subcut BEDTIME 10/17/24 10/17/24 Unknown History mL) subcutaneous pen (Lantus Solostar U-100 Insulin) Physical Exam Vital Signs: Vital Signs: Last Vital Signs Temp 98.5 F 10/17/24 11:19 Pulse 92 10/17/24 12:47 Resp 18 10/17/24 12:47 BP 130/86 10/17/24 12:47 Pulse Ox 98 10/17/24 12:47 O2 Del Method Room Air 10/17/24 12:47 BMI result Body Mass Index 29.5 Const: General: comfortable and no acute distress Resp: Effort & Inspection: normal respiratory effort Cardio: Rhythm: regular rhythm GI: Palpation (GI): Soft to palpation, not firm and nontender Extrem: Other: Large bulla about 4 cm in diameter by 2 cm on the right foot with what appears to be murky fluid, thick keratotic skin, some surrounding cellulitic changes Results Labs 10/17/24 11:33 10/19/24 06:14 Labs: Abnormal lab results 10/16/24 10/17/24 Range/Units 18:17 11:33 RBC 4.46 L 4.41 L (4.60-5.80) X10*6/uL Hgb 11.7 L 11.3 L (14.0-18.0) g/dl Hct 36.2 L 35.3 L (42.0-52.0) % MCH 26.2 L 25.6 L (27.0-33.0) pg Plt Count 158 L 159 L (160-400) X10*3/uL Neut % (Auto) 77.8 H (45-73) % Lymph % (Auto) 19.3 L 12.1 L (20-40) % Lymph # (Auto) 1.0 L (1.2-4.9) X10*3/uL ESR 48 H 55 H (0-15) MM/HR PT 13.2 H (10.9-12.4) SEC Anion Gap 10 L (12-20) BUN 30 H 26 H (9-16) mg/dL Random Glucose 197 H 286 H (60-115) mg/dL AST 38 H (5-37) U/L C-Reactive Protein 3.24 H 4.63 H (< or = 0.50) mg/dL B-Natriuretic Peptide 1028 H (<100) pg/mL Albumin 2.9 L (3.5-5.0) g/dL Short CBC 10/16/24 10/17/24 Range/Units 18:17 11:33 WBC 8.6 8.6 (4.8-10.8) X10*3/uL Hgb 11.7 L 11.3 L (14.0-18.0) g/dl Hct 36.2 L 35.3 L (42.0-52.0) % Plt Count 158 L 159 L (160-400) X10*3/uL BMP 10/16/24 10/17/24 18:17 11:33 Sodium 140 137 Potassium 4.8 D 4.3 Chloride 108 106 Carbon Dioxide 24 25 BUN 30 H 26 H Creatinine 1.40 1.30 Calcium 8.6 8.6 Liver Function 10/16/24 Range/Units 18:17 Total Bilirubin 0.5 (0.0-1.0) mg/dL AST 38 H (5-37) U/L ALT 31 (0-40) U/L Alkaline Phosphatase 103 (39-117) U/L Albumin 2.9 L (3.5-5.0) g/dL All other labs normal. Assessment and Plan (1) Cellulitis of foot: Status: Acute He has what appears to be an infected bulla with cellulitis as described above on the lateral aspect of the right forefoot. I proceeded to do sharp excisional debridement he was note of pus within the bulla itself. Cultures were taken. I cleaned the area with normal saline and applied dry dressings. I wrapped the foot with Kerlix roll I would recommend keeping him on antibiotics because of the cellulitis and infected bulla. His dressing should be changed every day with dry gauze and wrapped with Kerlix roll We should follow up on the culture results. I will follow along while he is in the hospital He has other multiple medical issues as well. Procedures Date of Service Date of Service: 10/19/24 Procedure Note Procedure Note: Procedure: Sharp excisional debridement of the right foot with infected bulla Preop diagnosis: Infected bulla right foot Postop diagnosis: The same The patient was in supine position. The area of the bulla was prepped and draped. I used sharp fine scissors to excise the skin covering the bulla. This can cystic of full-thickness of the skin. An area about 4 x 2 cm was debrided. There was note of thick purulent material that was within the bulla. Cultures were taken. I cleaned the area with normal saline and applied dry gauze. I wrapped the foot with Kerlix roll. He tolerated procedure well. There was minimal blood loss.
[2024-10-17] MEDS: Enoxaparin Sodium 40 MG/0.4 ML SYRINGE SUBCUT (15:16)
[2024-10-17] MEDS: 0.9 % Sodium Chloride Flush 3 ML SYRINGE IVFLUSH (15:18)
[2024-10-17 18:28] LABS: Glucose, Whole Blood 183 mg/dL (60-115)
[2024-10-17] MEDS: Morphine Sulfate 4 MG/ML CARTRIDGE 2 MG IVPUSH (18:47)
[2024-10-17] MEDS: Insulin Lispro 100 UNIT/ML 3 ML VIAL SUBCUT ×2 (18:48→21:51)
[2024-10-17] MEDS: carvediloL 12.5 MG TABLET PO (20:15)
[2024-10-17] MEDS: Sacubitril/Valsartan 24/26 1 TAB TABLET PO (20:16)
[2024-10-17 20:28] LABS: Glucose, Whole Blood 201 mg/dL (60-115)
[2024-10-17] MEDS: Insulin Glargine,Hum.rec.anlog 100 UNIT/ML 10 ML VIAL 15 UNIT SUBCUT (21:51)
[2024-10-17] MEDS: vancomycin HCL 1,000 MG in 0.9 % Sodium Chloride 250 ML 270 MG IV (23:39)
[2024-10-18] VITALS (7 sets, daily range): BP systolic 119–159; BP diastolic 59–96; PULSE 89–93; RESP 18–20; TEMP 36.2–36.4; O2SAT 95–100
[2024-10-18] MEDS: Piperacillin Sodium/Tazobactam 3.375 GM in 0.9 % Sodium Chloride 50 ML IV ×3 (05:38→17:41)
[2024-10-18 07:28] LABS: Anion Gap 10 (12-20); Blood Urea Nitrogen 28 mg/dL (9-16); Calcium 8.2 mg/dL (8.4-10.2); Carbon Dioxide 25 mmol/L (22-29); Chloride 107 mmol/L (96-108); Creatinine Clr Calc Pharmacy 76.1; Estimated Glomerular Filt Rate 53; Glucose Random 160 mg/dL (60-115); Sodium 138 mmol/L (135-145)
[2024-10-18 07:53] LABS: Glucose, Whole Blood 160 mg/dL (60-115)
[2024-10-18] MEDS: Spironolactone 25 MG TABLET PO (08:18)
[2024-10-18] MEDS: Multivitamin TABLET 1 TAB PO (08:18)
[2024-10-18] MEDS: Sacubitril/Valsartan 24/26 1 TAB TABLET PO ×2 (08:18→20:25)
[2024-10-18] MEDS: carvediloL 12.5 MG TABLET PO ×2 (08:19→20:15)
[2024-10-18] MEDS: Furosemide 40 MG/4 ML VIAL IVPUSH ×2 (08:19→17:42)
[2024-10-18] MEDS: Insulin Lispro 100 UNIT/ML 3 ML VIAL SUBCUT ×2 (08:19→22:17)
[2024-10-18] MEDS: 0.9 % Sodium Chloride Flush 3 ML SYRINGE IVFLUSH (08:20)
--- NOTE | 2024-10-18 09:19 | MHC.CM.PN ---
Pt self-care, lives at home with a roommate. HCP on file and verified. Pt will arrange his own transport home at discharge. PCP: Tomy LYMAN
[2024-10-18 10:33] LABS: Vancomycin Random 19.1 mcg/mL (15-20)
--- NOTE | 2024-10-18 10:41 | PM.CNCAR ---
History of Present Illness History of Present Illness Date of Service: 10/18/24 Requesting physician: Jameson Núñez Chief complaint: HFrEF exacerbation, infected diabetic foot ulcer Narrative: I was consulted to see Mark in cardiology consultation today for decompensated congestive heart failure. Patient is a 44-year-old male with prior history of nonischemic cardiomyopathy with severe LV systolic dysfunction with LVEF of 20 25% by last echocardiogram in August this year. Patient says he does not take his furosemide on a regular basis at home O2 weeks ago he started developing more leg swelling and abdominal distension and he started taking Lasix but continued to get progressively more symptomatic. He also then developed infection on the right foot and cellulitis and came to the emergency room. In the emergency room he was noted to have significantly elevated BNP in the 1000 range and noted to be in decompensated congestive heart failure and was admitted for diuresis. Says since yesterday he has been diuresing well. His symptoms have improved. Leg edema has improved. Does take carvedilol, Entresto and spironolactone at home for neurohormonal modulation. Medications have been difficult to uptitrate him due to his prior history of syncope and low blood pressure. He has a scheduled appointment with EP for placement of defibrillator. Review of Systems Constitutional: Constitutional: Reports no additional constitutional complaints Eyes: Eyes: Reports no additional eye complaints Cardiovascular: Cardiovascular: Reports Abdominal Distension, Denies chest pain, Reports leg edema, Denies lightheadedness, Denies Loss of Consciousness, Reports dyspnea on exertion and Reports orthopnea Respiratory: Respiratory: Reports no additional respiratory complaints and Reports dyspnea on exertion Gastrointestinal: Gastrointestinal: Reports no additional gastrointestinal complaints Musculoskeletal: Musculoskeletal: Reports no additional musculoskeletal complaints Integumentary/Breasts: Skin/Breast: Reports system reviewed and no additional complaints, except as docu Neurologic: Reports system reviewed and no additional complaints, except as documented Psychiatric: Psychiatric: Reports no additional psychiatric complaints Endocrine: Endocrine: Reports no additional endocrine complaints PMFSH Past Medical History Medical History DMII (diabetes mellitus, type 2) Cardiomyopathy Foot callus Cellulitis of foot Chronic combined systolic and diastolic CHF (congestive heart failure) Palpitation JOLIE (generalized anxiety disorder) MDD (major depressive disorder), recurrent episode, moderate Diabetic foot ulcer Cardiomyopathy Alcohol use disorder in remission HTN (hypertension) CHF (congestive heart failure) Small bowel obstruction Hx of intestinal obstruction Erectile disorder due to medical condition in male patient (~10/17/24) Knee pain, right Family History Family History Mother Diabetes High blood pressure Surgical History Surgical History Hx of esophagogastroduodenoscopy History of appendectomy History of hernia surgery Social History Social History Household Members: None Household Members Other:: three kids and Housing: House Do you presently have visiting nurse or other home services: No Alcohol intake: never Patient Tobacco Use Status: Never used Tobacco Tobacco use type: Cigarette Smoked in Last 30 Days: No e-Cigarette/Vaping Use: Never Used Patient Interested in Nicotine Replacement: No Patient Given Instructions on How to Stop Smoking: No Second Hand Smoke Exposure: No Use of substances other than those prescribed or required for medical reasons: No Currently Displaying Signs/Symptoms of Drug Intoxication Withdrawal: No Any prior treatment program specific to substance use: No Have you been hit, kicked, punched, or otherwise hurt by someone within the past year? If so, by whom?: No Do you feel safe in your current relationship?: No Current Relationship Is there a partner from a previous relationship who is making you feel unsafe now?: No Are you made to feel afraid or neglected: No Advance Directives: Yes Advance Directives on File: Yes Advance Directives Date on File: 12/16/23 Do you have a plan to hurt others: No Plan Recently lost weight without trying: No Eating poorly because of decreased appetite: No Nutrition Risks: No Nutritional Risk Poor oral hygiene: No service: No Current occupational status: employed Current occupation: right handed Cognitive needs: No Hearing needs: No Vision needs: No Meds Allergies Allergy/AdvReac Type Severity Reaction Status Date / Time metformin AdvReac Intermediate GI side Verified 10/16/24 18:00 effects Active Medications: Current Medications Acetaminophen (Acetaminophen 325 Mg Tablet) 650 mg PO Q6H PRN PRN Reason: Pain, Mild 1-3,fever,headache Albuterol Sulfate (Albuterol Sulfate 90 Mcg 8 Gm Inhaler) 1 puff INHALE QID PRN PRN Reason: shortness of breath or wheezing Calcium Carbonate (Calcium Carbonate 750 Mg Tab.Chew) 750 mg PO Q4H PRN PRN Reason: Heartburn Carvedilol (Carvedilol 12.5 Mg Tablet) 12.5 mg PO BID [facility]; Protocol Last Admin: 10/18/24 08:19 Dose: 12.5 mg Dextrose (Dextrose 50 % 25 Gm/50 Ml Syringe) 25 gm IVPUSH Q15M PRN; Protocol PRN Reason: per Hypoglycemia Standing Ord. Enoxaparin Sodium (Enoxaparin Sodium 40 Mg/0.4 Ml Syringe) 40 mg SUBCUT Q24H [facility] Last Admin: 10/17/24 15:16 Dose: 40 mg Furosemide (Furosemide 40 Mg/4 Ml Vial) 40 mg IVPUSH BID@0900,1800 [facility]; Protocol Last Admin: 10/18/24 08:19 Dose: 40 mg Glucose (Glucose Gel 15 Gm Gel..Gram.) 15 gm PO Q15M PRN; Protocol PRN Reason: per Hypoglycemia Standing Ord. Piperacillin Sod/Tazobactam (Sod 3.375 gm/ Sodium Chloride) 50 mls @ 100 mls/hr IV Q6H [facility] Last Infusion: 10/18/24 06:08 Dose: Infused Vancomycin HCl 1,000 mg/ (Sodium Chloride) 270 mls @ 270 mls/hr IV Q12H [facility] Last Infusion: 10/18/24 00:39 Dose: Infused Insulin Glargine (Insulin Glargine,Hum.Rec.Anlog 100 Unit/Ml 10 Ml Vial) 15 unit SUBCUT BEDTIME [facility] Last Admin: 10/17/24 21:51 Dose: 15 unit Insulin Human Lispro (Insulin Lispro 100 Unit/Ml 3 Ml Vial) 0 unit SUBCUT QIDACHS [facility]; Protocol Last Admin: 10/18/24 08:19 Dose: 2 unit Ketorolac Tromethamine (Ketorolac Tromethamine 30 Mg/Ml Vial) 30 mg IVPUSH Q6H PRN PRN Reason: Pain, Moderate(Pain Scale 4-6) Stop: 10/22/24 14:12 Magnesium Hydroxide (Milk Of Magnesia 30 Ml Oral.Susp) 30 ml PO DAILY PRN PRN Reason: Constipation Melatonin (Melatonin 3 Mg Tablet) 6 mg PO BEDTIME PRN PRN Reason: Insomnia Morphine Sulfate (Morphine Sulfate 4 Mg/Ml Cartridge) 2 mg IVPUSH Q4H PRN; Protocol PRN Reason: Pain, Severe (Pain Scale 7-10) Last Admin: 10/17/24 18:47 Dose: 2 mg Multivitamins/Vitamin C (Multivitamin Tablet) 1 tab PO DAILY [facility] Last Admin: 10/18/24 08:18 Dose: 1 tab Ondansetron HCl (Ondansetron Hcl 4 Mg/2 Ml Vial) 4 mg IVPUSH Q8H PRN PRN Reason: Nausea and Vomiting Pharmacy Consult (Consult Rx Vancomycin Dosing) 1 each MISCELLANE DAILY PRN PRN Reason: Consult order Sacubitril/Valsartan (Sacubitril/Valsartan 1 Tab Tablet) 1 tab PO BID [facility]; Protocol Last Admin: 10/18/24 08:18 Dose: 1 tab Sodium Chloride (0.9 % Sodium Chloride Flush 3 Ml Syringe) [facility] Last Admin: 10/18/24 08:20 Dose: 3 ml Spironolactone (Spironolactone 25 Mg Tablet) 25 mg PO DAILY [facility]; Protocol Last Admin: 10/18/24 08:18 Dose: 25 mg Home Medications ?Medication ?Instructions ?Recorded ?Confirmed ?Last Taken ?Type multivitamin 1 tab PO DAILY 02/16/24 10/17/24 08/21/24 History carvedilol 3.125 mg tablet 12.5 mg PO BID 05/09/24 10/17/24 08/21/24 History insulin lispro 100 unit/mL See Protocol subcut TIDAC 08/22/24 10/17/24 08/21/24 History subcutaneous pen furosemide 80 mg tablet 80 mg PO DAILY PRN swelling/edema 10/17/24 10/17/24 Unknown History insulin glargine 100 unit/mL (3 18 unit subcut BEDTIME 10/17/24 10/17/24 Unknown History mL) subcutaneous pen (Lantus Solostar U-100 Insulin) Physical Exam Vital Signs: Vital Signs: Last Vital Signs Temp 97.4 F 10/18/24 07:32 Pulse 89 10/18/24 07:32 Resp 18 10/18/24 07:32 BP 142/87 H 10/18/24 07:32 Pulse Ox 98 10/18/24 07:32 O2 Del Method Room Air 10/18/24 07:32 BMI result Body Mass Index 29.5 Const: General: cooperative, comfortable, no acute distress, alert and awake Nutritional Appearance: average body habitus Orientation/consciousness: patient oriented x3 HEENT: Head: Yes normocephalic and Yes atraumatic Neck: Neck: Yes trachea midline, Yes supple and Yes JVD Resp: Effort & Inspection: normal respiratory effort Auscultation: crackles Cardio: Jugular venous distension: JVD Palpation: abnormal PMI displaced PMI Rate: regular rate Rhythm: regular rhythm Heart sounds: S1 normal heart sound present, S2 normal heart sound present, no click and no gallops GI: Inspection: Yes distended Auscultation: normal bowel sounds Skin: General skin exam: no rashes or lesions noted Neuro: General: patient oriented x3 and no focal motor deficits Extrem: General: No clubbing, No cyanosis and Yes edema Psych: Appearance: grossly normal Objective Labs and Meds 10/17/24 11:33 10/18/24 06:25 Lab results: Laboratory Results - last 24 hr 10/17/24 10/17/24 10/17/24 11:33 17:16 20:25 WBC 8.6 RBC 4.41 L Hgb 11.3 L Hct 35.3 L MCV 80.0 MCH 25.6 L MCHC 32.0 RDW 15.3 Plt Count 159 L MPV 10.6 Immature Gran % (Auto) 0.2 Neut % (Auto) 77.8 H Lymph % (Auto) 12.1 L [place] % (Auto) 8.0 Eos % (Auto) 1.4 Baso % (Auto) 0.5 Lymph # (Auto) 1.0 L [place] # (Auto) 0.7 Eos # (Auto) 0.1 Baso # (Auto) 0.0 Abs Immat Gran (auto) 0.02 Absolute Neuts (auto) 6.7 Absolute Nucleated RBC 0.000 Nucleated RBC % (auto) 0.0 ESR 55 H Hold Purple Top Sodium 137 Potassium 4.3 Chloride 106 Carbon Dioxide 25 Anion Gap 10 L BUN 26 H Creatinine 1.30 Estim Creat Clear Calc 84.9 Estimated GFR > 60 POC Glucose 183 H 201 H Random Glucose 286 H Lactic Acid 1.0 Calcium 8.6 Magnesium 1.6 Troponin I High Sens 4.5 C-Reactive Protein 4.63 H B-Natriuretic Peptide 1028 H Random Vancomycin 10/18/24 10/18/24 10/18/24 06:25 07:29 10:02 WBC RBC Hgb Hct MCV MCH MCHC RDW Plt Count MPV Immature Gran % (Auto) Neut % (Auto) Lymph % (Auto) [place] % (Auto) Eos % (Auto) Baso % (Auto) Lymph # (Auto) [place] # (Auto) Eos # (Auto) Baso # (Auto) Abs Immat Gran (auto) Absolute Neuts (auto) Absolute Nucleated RBC Nucleated RBC % (auto) ESR Hold Purple Top SEE NOTE Sodium 138 Potassium 4.0 Chloride 107 Carbon Dioxide 25 Anion Gap 10 L BUN 28 H Creatinine 1.45 H Estim Creat Clear Calc 76.1 Estimated GFR 53 POC Glucose 160 H Random Glucose 160 H Lactic Acid Calcium 8.2 L Magnesium Troponin I High Sens C-Reactive Protein B-Natriuretic Peptide Random Vancomycin 19.1 Imaging Radiologist's impression: Impressions Chest X-Ray 10/17/24 11:30 IMPRESSION: Unremarkable chest exam. No change from 08/28/2024. Electronically signed by: Maynor Barron MD 10/17/2024 11:48 AM [facility] Assessment and Plan (1) Acute exacerbation of CHF (congestive heart failure): Status: Acute Acute decompensated congestive heart failure in this young man with known severe cardiomyopathy suspected to be nonischemic. Patient was severely reduced LV ejection fraction which has been gradually declining over the last year. At this point time appears to be still fluid overloaded. There has been difficulty in managing his blood pressures at home and there been issues with orthostatic hypotension probably related to diabetic autonomic dysfunction. For now will continue current dose of his neurohormonal modulators with carvedilol, Entresto as well as spironolactone. Hold off on Jardiance. Continue IV diuresis with Lasix 40 mg IV b.i.d.. Strict intake and output chart needs to be pursued. Continue monitor renal function as well as BNP. There is no indication for repeat echocardiogram at this point time. Continue to treat his cellulitis aggressively. Out of bed to chair and incentive spirometry should be prescribed. Continue monitor blood pressure closely as well as monitor orthostatics. Will follow with you Procedures Date of Service Date of Service: 10/18/24
--- NOTE | 2024-10-18 10:52 | HE.PHANOTE ---
re vanco dosing changing dose to 1500 q24 as trough is 19.1 after only 2 doses. Will continue daily renal monitoring and recheck trough 10/19 @1100
[2024-10-18 11:54] LABS: Glucose, Whole Blood 142 mg/dL (60-115)
--- NOTE | 2024-10-18 12:07 | PM.PNGS ---
Subjective Subjective Date of Service: 10/18/24 Interval history: Denies new complaint Not short of breath this morning Physical Exam Vital Signs: Vital Signs: Last Vital Signs Temp 97.2 F 10/18/24 11:23 Pulse 90 10/18/24 11:23 Resp 18 10/18/24 11:23 BP 133/85 10/18/24 11:23 Pulse Ox 100 10/18/24 11:23 O2 Del Method Room Air 10/18/24 11:23 BMI result Body Mass Index 29.5 Const: General: comfortable and no acute distress Resp: Effort & Inspection: normal respiratory effort Cardio: Rate: regular rate Extrem: Other: Right lower leg with a little bit of edema Open wound on the right forefoot clean, debrided yesterday, no pus Objective Data Active Medications Acetaminophen (Acetaminophen 325 Mg Tablet) 650 mg PO Q6H PRN PRN Reason: Pain, Mild 1-3,fever,headache Albuterol Sulfate (Albuterol Sulfate 90 Mcg 8 Gm Inhaler) 1 puff INHALE QID PRN PRN Reason: shortness of breath or wheezing Calcium Carbonate (Calcium Carbonate 750 Mg Tab.Chew) 750 mg PO Q4H PRN PRN Reason: Heartburn Carvedilol (Carvedilol 12.5 Mg Tablet) 12.5 mg PO BID [facility]; Protocol Last Admin: 10/18/24 08:19 Dose: 12.5 mg Documented By: GERRY Dextrose (Dextrose 50 % 25 Gm/50 Ml Syringe) 25 gm IVPUSH Q15M PRN; Protocol PRN Reason: per Hypoglycemia Standing Ord. Enoxaparin Sodium (Enoxaparin Sodium 40 Mg/0.4 Ml Syringe) 40 mg SUBCUT Q24H [facility] Last Admin: 10/17/24 15:16 Dose: 40 mg Documented By: ROBBIE Furosemide (Furosemide 40 Mg/4 Ml Vial) 40 mg IVPUSH BID@0900,1800 [facility]; Protocol Last Admin: 10/18/24 08:19 Dose: 40 mg Documented By: GERRY Glucose (Glucose Gel 15 Gm Gel..Gram.) 15 gm PO Q15M PRN; Protocol PRN Reason: per Hypoglycemia Standing Ord. Piperacillin Sod/Tazobactam (Sod 3.375 gm/ Sodium Chloride) 50 mls @ 100 mls/hr IV Q6H [facility] Last Infusion: 10/18/24 06:08 Dose: Infused Documented By: YOLA Vancomycin HCl 1,500 mg/ (Sodium Chloride) 500 mls @ 333.333 mls/hr IV Q24H [facility] Insulin Glargine (Insulin Glargine,Hum.Rec.Anlog 100 Unit/Ml 10 Ml Vial) 15 unit SUBCUT BEDTIME [facility] Last Admin: 10/17/24 21:51 Dose: 15 unit Documented By: YOLA Insulin Human Lispro (Insulin Lispro 100 Unit/Ml 3 Ml Vial) 0 unit SUBCUT QIDACHS [facility]; Protocol Last Admin: 10/18/24 12:02 Dose: Not Given Documented By: GERRY Non-Admin Reason: No Insulin Coverage Ketorolac Tromethamine (Ketorolac Tromethamine 30 Mg/Ml Vial) 30 mg IVPUSH Q6H PRN PRN Reason: Pain, Moderate(Pain Scale 4-6) Stop: 10/22/24 14:12 Magnesium Hydroxide (Milk Of Magnesia 30 Ml Oral.Susp) 30 ml PO DAILY PRN PRN Reason: Constipation Melatonin (Melatonin 3 Mg Tablet) 6 mg PO BEDTIME PRN PRN Reason: Insomnia Morphine Sulfate (Morphine Sulfate 4 Mg/Ml Cartridge) 2 mg IVPUSH Q4H PRN; Protocol PRN Reason: Pain, Severe (Pain Scale 7-10) Last Admin: 10/17/24 18:47 Dose: 2 mg Documented By: GOPI Multivitamins/Vitamin C (Multivitamin Tablet) 1 tab PO DAILY [facility] Last Admin: 10/18/24 08:18 Dose: 1 tab Documented By: GERRY Ondansetron HCl (Ondansetron Hcl 4 Mg/2 Ml Vial) 4 mg IVPUSH Q8H PRN PRN Reason: Nausea and Vomiting Pharmacy Consult (Consult Rx Vancomycin Dosing) 1 each MISCELLANE DAILY PRN PRN Reason: Consult order Sacubitril/Valsartan (Sacubitril/Valsartan 1 Tab Tablet) 1 tab PO BID [facility]; Protocol Last Admin: 10/18/24 08:18 Dose: 1 tab Documented By: GERRY Sodium Chloride (0.9 % Sodium Chloride Flush 3 Ml Syringe) [facility] Last Admin: 03/05/25 08:20 Dose: 3 ml Documented By: GERRY Spironolactone (Spironolactone 25 Mg Tablet) 25 mg PO DAILY [facility]; Protocol Last Admin: 10/18/24 08:18 Dose: 25 mg Documented By: GERRY Labs 10/17/24 11:33 10/18/24 06:25 Labs: Laboratory Results - last 24 hr 10/17/24 10/17/24 10/17/24 11:33 17:16 20:25 ESR 55 H Hold Purple Top Anion Gap 10 L Estim Creat Clear Calc 84.9 Estimated GFR > 60 POC Glucose 183 H 201 H Random Glucose 286 H Lactic Acid 1.0 Calcium 8.6 Magnesium 1.6 C-Reactive Protein 4.63 H B-Natriuretic Peptide 1028 H Random Vancomycin 10/18/24 10/18/24 10/18/24 06:25 07:29 10:02 ESR Hold Purple Top SEE NOTE Anion Gap 10 L Estim Creat Clear Calc 76.1 Estimated GFR 53 POC Glucose 160 H Random Glucose 160 H Lactic Acid Calcium 8.2 L Magnesium C-Reactive Protein B-Natriuretic Peptide Random Vancomycin 19.1 10/18/24 11:22 ESR Hold Purple Top Anion Gap Estim Creat Clear Calc Estimated GFR POC Glucose 142 H Random Glucose Lactic Acid Calcium Magnesium C-Reactive Protein B-Natriuretic Peptide Random Vancomycin Microbiology Microbiology Results: Microbiology 10/17/24 16:21 Gram Stain - Final Foot Right Routine Culture - Preliminary Culture in progress. Procedures Date of Service Date of Service: 10/18/24 Progress Note: A&P Assessment and plan (1) Cellulitis of foot, right: Status: Acute Assessment and Plan: Had an infected bulla yesterday Debrided sharply and drained I have changed his dressing Wet gauze applied along with a Emilee roll Continue daily wound care Recurrence of bulla suspicious for underlying osteomyelitis Recommend MRI Follow up on culture Time Spent With Patient Time: Total time managing care of this patient today ____ minutes. Quality Stroke Does the patient have a stroke diagnosis?: No VTE Prior VTE?: No VTE Risk Level:: Medical - moderate - high VTE Device Contraindication: Treatment Not Indicated VTE Drug Contraindication: N/A - Med Ordered
[2024-10-18] MEDS: vancomycin HCL 1,500 MG in 0.9 % Sodium Chloride 500 ML 333.33 MG IV (13:06)
--- NOTE | 2024-10-18 14:46 | HO.WOUND ---
Wound Consult: Initial 44yr old male? [place] [facility] [place] See progress notes and H&P for detailed history.? Wound consult placed for Right Grat Toe / Foot.? Patient agreeable to assessment and photo documentation.? Dr. Bettencourt informed me dressing change performed by him this morning. He requests this check writer salesperson see and assess pt foot wound tomorrow and make topical recommendations. Will defer wound assessment until tomorrow.
[2024-10-18] MEDS: Enoxaparin Sodium 40 MG/0.4 ML SYRINGE SUBCUT (15:16)
[2024-10-18 16:03] LABS: Glucose, Whole Blood 147 mg/dL (60-115)
--- NOTE | 2024-10-18 17:58 | HO.PM.IMPN ---
Subjective Subjective Date of Service: 10/18/24 Interval History: Being followed for acute CHF and right foot infected blister. Feeling better less shortness of breath, denies fever, no chills, no acute complaints overnight. Review of Systems All other system reviewed and are negative. Physical Exam Vital Signs: Vital Signs: Last Vital Signs Temp 97.1 F 10/18/24 15:25 Pulse 90 10/18/24 15:25 Resp 18 10/18/24 15:25 BP 159/96 H 10/18/24 15:25 Pulse Ox 98 10/18/24 15:25 O2 Del Method Room Air 10/18/24 15:25 BMI result Body Mass Index 29.5 Const: Other: General resting comfortably in no acute distress. Neck + JVD. CVS regular rate rhythm, Respiratory lungs basilar crackles, no respiratory distress, Gastrointestinal abdomen soft, non tender, bowel sounds audible Extremities + edema. Right foot dressing in place Neuro non focal Psych appropriate affect Objective Data Active Medications Acetaminophen (Acetaminophen 325 Mg Tablet) 650 mg PO Q6H PRN PRN Reason: Pain, Mild 1-3,fever,headache Albuterol Sulfate (Albuterol Sulfate 90 Mcg 8 Gm Inhaler) 1 puff INHALE QID PRN PRN Reason: shortness of breath or wheezing Calcium Carbonate (Calcium Carbonate 750 Mg Tab.Chew) 750 mg PO Q4H PRN PRN Reason: Heartburn Carvedilol (Carvedilol 12.5 Mg Tablet) 12.5 mg PO BID [facility]; Protocol Last Admin: 10/18/24 08:19 Dose: 12.5 mg Documented By: GERRY Dextrose (Dextrose 50 % 25 Gm/50 Ml Syringe) 25 gm IVPUSH Q15M PRN; Protocol PRN Reason: per Hypoglycemia Standing Ord. Enoxaparin Sodium (Enoxaparin Sodium 40 Mg/0.4 Ml Syringe) 40 mg SUBCUT Q24H [facility] Last Admin: 10/18/24 15:16 Dose: 40 mg Documented By: GERRY Furosemide (Furosemide 40 Mg/4 Ml Vial) 40 mg IVPUSH BID@0900,1800 [facility]; Protocol Last Admin: 10/18/24 17:42 Dose: 40 mg Documented By: GERRY Glucose (Glucose Gel 15 Gm Gel..Gram.) 15 gm PO Q15M PRN; Protocol PRN Reason: per Hypoglycemia Standing Ord. Piperacillin Sod/Tazobactam (Sod 3.375 gm/ Sodium Chloride) 50 mls @ 100 mls/hr IV Q6H [facility] Last Admin: 10/18/24 17:41 Dose: 100 mls/hr Documented By: GERRY Vancomycin HCl 1,500 mg/ (Sodium Chloride) 500 mls @ 333.333 mls/hr IV Q24H [facility] Last Infusion: 10/18/24 14:59 Dose: Infused Documented By: GERRY Insulin Glargine (Insulin Glargine,Hum.Rec.Anlog 100 Unit/Ml 10 Ml Vial) 15 unit SUBCUT BEDTIME [facility] Last Admin: 10/17/24 21:51 Dose: 15 unit Documented By: YOLA Insulin Human Lispro (Insulin Lispro 100 Unit/Ml 3 Ml Vial) 0 unit SUBCUT QIDACHS [facility]; Protocol Last Admin: 10/18/24 16:09 Dose: Not Given Documented By: GERRY Non-Admin Reason: No Insulin Coverage Ketorolac Tromethamine (Ketorolac Tromethamine 30 Mg/Ml Vial) 30 mg IVPUSH Q6H PRN PRN Reason: Pain, Moderate(Pain Scale 4-6) Stop: 10/22/24 14:12 Magnesium Hydroxide (Milk Of Magnesia 30 Ml Oral.Susp) 30 ml PO DAILY PRN PRN Reason: Constipation Melatonin (Melatonin 3 Mg Tablet) 6 mg PO BEDTIME PRN PRN Reason: Insomnia Morphine Sulfate (Morphine Sulfate 4 Mg/Ml Cartridge) 2 mg IVPUSH Q4H PRN; Protocol PRN Reason: Pain, Severe (Pain Scale 7-10) Last Admin: 10/17/24 18:47 Dose: 2 mg Documented By: GOPI Multivitamins/Vitamin C (Multivitamin Tablet) 1 tab PO DAILY [facility] Last Admin: 10/18/24 08:18 Dose: 1 tab Documented By: GERRY Ondansetron HCl (Ondansetron Hcl 4 Mg/2 Ml Vial) 4 mg IVPUSH Q8H PRN PRN Reason: Nausea and Vomiting Pharmacy Consult (Consult Rx Vancomycin Dosing) 1 each MISCELLANE DAILY PRN PRN Reason: Consult order Sacubitril/Valsartan (Sacubitril/Valsartan 1 Tab Tablet) 1 tab PO BID [facility]; Protocol Last Admin: 10/18/24 08:18 Dose: 1 tab Documented By: GERRY Sodium Chloride (0.9 % Sodium Chloride Flush 3 Ml Syringe) 3 ml IVFLUSH QSHIFT [facility] Last Admin: 10/18/24 15:16 Dose: Not Given Documented By: GERRY Non-Admin Reason: Previously Administered Spironolactone (Spironolactone 25 Mg Tablet) 25 mg PO DAILY [facility]; Protocol Last Admin: 10/18/24 08:18 Dose: 25 mg Documented By: GERRY Labs 10/17/24 11:33 10/18/24 06:25 Labs: Laboratory Results - last 24 hr 10/17/24 10/17/24 10/18/24 17:16 20:25 06:25 Hold Purple Top SEE NOTE Anion Gap 10 L Estim Creat Clear Calc 76.1 Estimated GFR 53 POC Glucose 183 H 201 H Random Glucose 160 H Calcium 8.2 L Random Vancomycin 10/18/24 10/18/24 10/18/24 07:29 10:02 11:22 Hold Purple Top Anion Gap Estim Creat Clear Calc Estimated GFR POC Glucose 160 H 142 H Random Glucose Calcium Random Vancomycin 19.1 10/18/24 15:29 Hold Purple Top Anion Gap Estim Creat Clear Calc Estimated GFR POC Glucose 147 H Random Glucose Calcium Random Vancomycin Microbiology Microbiology Results: Microbiology 10/17/24 11:40 Blood Culture - Preliminary Blood - Venous No growth after 24 hours. 10/17/24 11:33 Blood Culture - Preliminary Blood - Venous No growth after 24 hours. 10/17/24 16:21 Gram Stain - Final Foot Right Routine Culture - Preliminary Culture in progress. Assessment and Plan (1) Acute exacerbation of CHF (congestive heart failure): Status: Acute (2) DMII (diabetes mellitus, type 2): Status: Acute (3) Foot abscess, right: Status: Acute Plan 44-year-old male with a PMH significant for?HFrEF (EF 20-25%), non-ischemic cardiomyopathy, insulin-dependent type 2 diabetes, HTN, alcohol use disorder in remission, chronic diabetic foot ulcers, who presents to the ED with?increased lower leg swelling and right sore. Pt will be admitted to the hospital for treatment and further evaluation of acute HFrEF exacerbation as well as right foot cellulitis with possible abscess. Acute HFrEF exacerbation Feeling better, still fluid overloaded, history of severe cardiomyopathy Continue Lasix 40 mg IV b.i.d.neg 1.2 L Continue spironolactone, carvedilol, Entresto, hold Jardiance. Follow I/O, lytes, daily weight, Low-salt diet Cardio agree with above treatment plan recommend no indication repeat echocardiogram. Right foot cellulitis secondary to chronic diabetic foot ulcer large blister/abscess on right lateral aspect 5th digit status post I&D by General surgery, no sepsis Continue IV vancomycin and Zosyn, started 10/17/2024 General surgery recommend MRI to rule out osteo Follow wound and blood cultures History of orthostatic hypotension probably related to diabetic autonomic dysfunction Follow orthostatic BP Insulin-dependent type 2 diabetes Stable blood sugar, Sliding-scale insulin, Lantus Diabetic diet Alcohol use disorder In remission x1 year Full Code DVT Prophylaxis: Lovenox Pt will require continued inpatient hospitalization for treatment of?acute HFrEF exacerbation as well as right foot cellulitis with abscess secondary to chronic diabetic foot ulcer. Requiring IV antibiotics, IV diuretics and close clinical follow-up. Quality Stroke Does the patient have a stroke diagnosis?: No VTE Prior VTE?: No VTE Risk Level:: Medical - moderate - high VTE Device Contraindication: Treatment Not Indicated VTE Drug Contraindication: N/A - Med Ordered
[2024-10-18] MEDS: Insulin Glargine,Hum.rec.anlog 100 UNIT/ML 10 ML VIAL 15 UNIT SUBCUT (20:23)
[2024-10-18 21:04] LABS: Glucose, Whole Blood 286 mg/dL (60-115)
[2024-10-19] VITALS: BP 119/73; PULSE 98; RESP 20; TEMP 36.3; O2SAT 94
[2024-10-19] MEDS: Piperacillin Sodium/Tazobactam 3.375 GM in 0.9 % Sodium Chloride 50 ML IV ×5 (00:16→23:57)
[2024-10-19] MEDS: 0.9 % Sodium Chloride Flush 3 ML SYRINGE IVFLUSH ×4 (00:16→20:21)
[2024-10-19 03:31] VITALS: BP 119/80; PULSE 91; RESP 20; TEMP 36.2; O2SAT 96
[2024-10-19 07:00] LABS: B Type Natriuretic Peptide 841 pg/mL (<100)
[2024-10-19 07:07] VITALS: BP 131/77; PULSE 90; RESP 18; TEMP 36.8; O2SAT 94
[2024-10-19 07:14] LABS: Anion Gap 12 (12-20); Blood Urea Nitrogen 29 mg/dL (9-16); Calcium 8.7 mg/dL (8.4-10.2); Carbon Dioxide 26 mmol/L (22-29); Chloride 104 mmol/L (96-108); Creatinine Clr Calc Pharmacy 75.1; Estimated Glomerular Filt Rate 53; Glucose Random 140 mg/dL (60-115); Magnesium 1.4 mg/dL (1.6-2.6); Potassium 3.5 mmol/L (3.3-5.1); Sodium 138 mmol/L (135-145)
[2024-10-19 07:18] LABS: Glucose, Whole Blood 143 mg/dL (60-115)
[2024-10-19] MEDS: Magnesium Sulfate/H2O 2 GM/50 ML PIGGYBACK IV (08:59)
[2024-10-19] MEDS: Sacubitril/Valsartan 24/26 1 TAB TABLET PO ×2 (08:59→20:17)
[2024-10-19] MEDS: Furosemide 40 MG/4 ML VIAL IVPUSH ×2 (08:59→17:39)
[2024-10-19] MEDS: carvediloL 12.5 MG TABLET PO (09:00)
[2024-10-19] MEDS: Spironolactone 25 MG TABLET PO (09:00)
[2024-10-19] MEDS: Multivitamin TABLET 1 TAB PO (09:00)
--- NOTE | 2024-10-19 09:46 | PM.PNCARD ---
Subjective Subjective Date of Service: 10/19/24 Principal diagnosis: Decompensated CHF Interval history: Patient is breathing better. BNP is downtrending. Has diuresed about 3 L. Blood pressures been stable. No significant orthostatic symptoms. Review of Systems Constitutional: Reports no additional constitutional complaints Cardiovascular: Denies chest pain, Denies rapid heart rate, Reports leg edema, Denies lightheadedness and Denies dyspnea on exertion Respiratory: Denies dyspnea on exertion Genitourinary: Reports no additional male genitourinary complaints Musculoskeletal: Reports no additional musculoskeletal complaints Psychiatric: Reports no additional psychiatric complaints Endocrine: Reports no additional endocrine complaints Hematologic/Lymphatic: Reports no additional hematologic/lymphatic complaints Physical Exam Vital Signs: Last Vital Signs Temp 98.2 F 10/19/24 07:07 Pulse 90 10/19/24 07:07 Resp 18 10/19/24 07:07 BP 131/77 10/19/24 07:07 Pulse Ox 94 10/19/24 07:07 O2 Del Method Room Air 10/19/24 07:07 BMI result Body Mass Index 29.5 Const General: cooperative, comfortable, no acute distress, alert and awake Nutritional Appearance: average body habitus Orientation/consciousness: patient oriented x3 HEENT Head: Yes normocephalic and Yes atraumatic Neck Neck: Yes trachea midline, Yes supple and Yes JVD Resp Effort & Inspection: normal respiratory effort Auscultation: crackles Cardio Jugular venous distension: JVD Palpation: abnormal PMI displaced PMI Rate: regular rate Rhythm: regular rhythm Heart sounds: S1 normal heart sound present, S2 normal heart sound present, no click and no gallops GI Inspection: Yes distended Auscultation: normal bowel sounds Skin General skin exam: no rashes or lesions noted Neuro General: patient oriented x3 and no focal motor deficits Extrem General: No clubbing, No cyanosis and Yes edema Psych Appearance: grossly normal Objective Labs and Meds 10/17/24 11:33 10/19/24 06:14 Lab results: Laboratory Results - last 24 hr 10/18/24 10/18/24 10/18/24 10:02 11:22 15:29 Sodium Potassium Chloride Carbon Dioxide Anion Gap BUN Creatinine Estim Creat Clear Calc Estimated GFR POC Glucose 142 H 147 H Random Glucose Calcium Magnesium B-Natriuretic Peptide Random Vancomycin 19.1 10/18/24 10/19/24 10/19/24 20:55 06:14 07:11 Sodium 138 Potassium 3.5 Chloride 104 Carbon Dioxide 26 Anion Gap 12 BUN 29 H Creatinine 1.47 H Estim Creat Clear Calc 75.1 Estimated GFR 53 POC Glucose 286 H 143 H Random Glucose 140 H Calcium 8.7 D Magnesium 1.4 L* B-Natriuretic Peptide 841 H Random Vancomycin Progress Note: A&P Assessment and plan (1) Acute exacerbation of CHF (congestive heart failure): Status: Acute Assessment and Plan: Acute congestive heart failure still appears to be fluid overloaded. Continue IV diuresis. Continue Entresto, spironolactone. Uptitrate carvedilol to 25 mg b.i.d.. Continue monitor blood pressure closely. Check orthostatic vitals tomorrow. Continue monitor renal function. Please replace magnesium aggressively. Will follow with you Time Spent With Patient Time: Total time managing care of this patient today ____ minutes. Progress Note: Quality Stroke Does the patient have a stroke diagnosis?: No Procedures Date of Service Date of Service: 10/19/24
--- NOTE | 2024-10-19 10:08 | P.CDIM_ITS ---
PROVIDER RESPONSE TEXT: To clarify, the appropriate diagnosis supported by the clinical indicators: Excisional debridement: full thickness of skin QUERY TEXT: PHYSICIAN'S DOCUMENTATION REQUEST Date of Query: 10/19/2024 08:41 AM EST Patient Name: Mark Humphrey Admit Date: 10/17/2024 Dear Matt Bettencourt MD, A review of the medical record indicates additional documentation may be needed. Please review below and update the documentation accordingly. Clinical Indicators: General Surgery consultation note dated 10/17/24 - What appears to be an infected bulla with cellulitis right forefoot. I proceeded to do sharp excisional debridement he was note of pus within the bulla itself. Cultures were taken. Antibiotics. Could you provide, in the Progress Notes, further clarification regarding the depth of the noted debr idement? Excisional debridement skin, subcutaneous tissue and fascia, tendons, joint, muscle, bursa ligament etc. Non-excisional debridement skin, subcutaneous tissue and fascia, tendons, bursa ligament etc. Other (explain) Clinically unable to determine (explain) Thank you, Diamond Pickett, CCS, CDIS Use of terms such as suspected, likely, concern for, or probable (associated with a specific diagnosi s that is being evaluated, monitored, or treated as if it exists) are acceptable and can be coded in the inpatient se tting, when documented at the time of discharge. Please use your independent medical judgment in providing your response. THIS QUERY IS PART OF THE PERMANENT MEDICAL RECORD
--- NOTE | 2024-10-19 10:45 | P.PNIM_ITS ---
Subjective Subjective Date of Service: 10/19/24 Interval History: Being followed for CHF with reduced EF, Feeling better, shortness of breath significantly improved denies fever, no chills, no chest pain, no acute events overnight. Review of Systems All other system reviewed and are negative Physical Exam 2 Vital Signs: Vital Signs: Last Vital Signs Temp 98.2 F 10/19/24 07:07 Pulse 90 10/19/24 07:07 Resp 18 10/19/24 07:07 BP 131/77 10/19/24 07:07 Pulse Ox 94 10/19/24 07:07 O2 Del Method Room Air 10/19/24 07:07 BMI result Body Mass Index 29.5 Const: Other: General resting comfortably in no acute distress. Neck + JVD. CVS regular rate rhythm, Respiratory lungs left basilar crackles, no respiratory distress, Gastrointestinal abdomen soft, non tender, bowel sounds audible Extremities + edema improving. Right foot dressing in place, no drainage Neuro non focal Psych appropriate affect Objective Data Active Medications Acetaminophen (Acetaminophen 325 Mg Tablet) 650 mg PO Q6H PRN PRN Reason: Pain, Mild 1-3,fever,headache Albuterol Sulfate (Albuterol Sulfate 90 Mcg 8 Gm Inhaler) 1 puff INHALE QID PRN PRN Reason: shortness of breath or wheezing Calcium Carbonate (Calcium Carbonate 750 Mg Tab.Chew) 750 mg PO Q4H PRN PRN Reason: Heartburn Carvedilol (Carvedilol 25 Mg Tablet) 25 mg PO BID [facility]; Protocol Dextrose (Dextrose 50 % 25 Gm/50 Ml Syringe) 25 gm IVPUSH Q15M PRN; Protocol PRN Reason: per Hypoglycemia Standing Ord. Enoxaparin Sodium (Enoxaparin Sodium 40 Mg/0.4 Ml Syringe) 40 mg SUBCUT Q24H [facility] Last Admin: 10/18/24 15:16 Dose: 40 mg Documented By: GERRY Furosemide (Furosemide 40 Mg/4 Ml Vial) 40 mg IVPUSH BID@0900,1800 [facility]; Protocol Last Admin: 10/19/24 08:59 Dose: 40 mg Documented By: CORI Glucose (Glucose Gel 15 Gm Gel..Gram.) 15 gm PO Q15M PRN; Protocol PRN Reason: per Hypoglycemia Standing Ord. Piperacillin Sod/Tazobactam (Sod 3.375 gm/ Sodium Chloride) 50 mls @ 100 mls/hr IV Q6H [facility] Last Infusion: 10/19/24 05:46 Dose: Infused Documented By: LISBETH Vancomycin HCl 1,500 mg/ (Sodium Chloride) 500 mls @ 333.333 mls/hr IV Q24H [facility] Last Infusion: 10/18/24 14:59 Dose: Infused Documented By: GERRY Insulin Glargine (Insulin Glargine,Hum.Rec.Anlog 100 Unit/Ml 10 Ml Vial) 15 unit SUBCUT BEDTIME [facility] Last Admin: 10/18/24 20:23 Dose: 15 unit Documented By: BRAD Insulin Human Lispro (Insulin Lispro 100 Unit/Ml 3 Ml Vial) 0 unit SUBCUT QIDACHS [facility]; Protocol Last Admin: 10/19/24 09:01 Dose: Not Given Documented By: CORI Non-Admin Reason: No Insulin Coverage Ketorolac Tromethamine (Ketorolac Tromethamine 30 Mg/Ml Vial) 30 mg IVPUSH Q6H PRN PRN Reason: Pain, Moderate(Pain Scale 4-6) Stop: 10/22/24 14:12 Magnesium Hydroxide (Milk Of Magnesia 30 Ml Oral.Susp) 30 ml PO DAILY PRN PRN Reason: Constipation Melatonin (Melatonin 3 Mg Tablet) 6 mg PO BEDTIME PRN PRN Reason: Insomnia Morphine Sulfate (Morphine Sulfate 4 Mg/Ml Cartridge) 2 mg IVPUSH Q4H PRN; Protocol PRN Reason: Pain, Severe (Pain Scale 7-10) Last Admin: 10/17/24 18:47 Dose: 2 mg Documented By: GOPI Multivitamins/Vitamin C (Multivitamin Tablet) 1 tab PO DAILY [facility] Last Admin: 10/19/24 09:00 Dose: 1 tab Documented By: CORI Ondansetron HCl (Ondansetron Hcl 4 Mg/2 Ml Vial) 4 mg IVPUSH Q8H PRN PRN Reason: Nausea and Vomiting Pharmacy Consult (Consult Rx Vancomycin Dosing) 1 each MISCELLANE DAILY PRN PRN Reason: Consult order Sacubitril/Valsartan (Sacubitril/Valsartan 1 Tab Tablet) 1 tab PO BID [facility]; Protocol Last Admin: 10/19/24 08:59 Dose: 1 tab Documented By: CORI Sodium Chloride (0.9 % Sodium Chloride Flush 3 Ml Syringe) 3 ml IVFLUSH QSHIFT [facility] Last Admin: 10/19/24 09:00 Dose: 3 ml Documented By: CORI Spironolactone (Spironolactone 25 Mg Tablet) 25 mg PO DAILY [facility]; Protocol Last Admin: 10/19/24 09:00 Dose: 25 mg Documented By: CORI Labs 10/17/24 11:33 10/19/24 06:14 Labs: Laboratory Results - last 24 hr 10/18/24 10/18/24 10/18/24 11:22 15:29 20:55 Anion Gap Estim Creat Clear Calc Estimated GFR POC Glucose 142 H 147 H 286 H Random Glucose Calcium Magnesium B-Natriuretic Peptide 10/19/24 10/19/24 06:14 07:11 Anion Gap 12 Estim Creat Clear Calc 75.1 Estimated GFR 53 POC Glucose 143 H Random Glucose 140 H Calcium 8.7 D Magnesium 1.4 L* B-Natriuretic Peptide 841 H Microbiology Microbiology Results: Microbiology 10/17/24 16:21 Gram Stain - Final Foot Right Routine Culture - Preliminary Staphylococcus aureus Gram negative ghanshyam 10/17/24 11:40 Blood Culture - Preliminary Blood - Venous No growth after 24 hours. 10/17/24 11:33 Blood Culture - Preliminary Blood - Venous No growth after 24 hours. Assessment and Plan (1) Acute exacerbation of CHF (congestive heart failure): Status: Acute (2) DMII (diabetes mellitus, type 2): Status: Acute (3) Hypomagnesemia: Status: Acute Plan 44-year-old male with a PMH significant for?HFrEF (EF 20-25%), non-ischemic cardiomyopathy, insulin-dependent type 2 diabetes, HTN, alcohol use disorder in remission, chronic diabetic foot ulcers, who presents to the ED with?increased lower leg swelling and right sore. Pt will be admitted to the hospital for treatment and further evaluation of acute HFrEF exacerbation as well as right foot cellulitis with possible abscess. Acute HFrEF exacerbation Feeling better, still fluid overloaded, history of severe nonischemic cardiomyopathy EF 20-25% Continue Lasix 40 mg IV b.i.d.neg >3L Continue spironolactone, carvedilol, Entresto, hold Jardiance. Dose of Coreg increased to 25 b.i.d. by Cardiology Follow I/O, lytes, daily weight, Low-salt diet, BNP trending down 1028 > 841 Right foot cellulitis secondary to chronic diabetic foot ulcer large blister/abscess on right lateral aspect 5th digit status post I&D by General surgery, no sepsis Continue IV vancomycin and Zosyn, started 10/17/2024 Will obtain bone scan to rule out osteomyelitis due to recurrent infection blood cultures preliminary negative x2, wound culture growing staph aureus and Gram-negative ghanshyam. Acute hypo magnesemia magnesium 1.4 , will replace and follow labs History of orthostatic hypotension probably related to diabetic autonomic dysfunction Follow orthostatic BP at am. Insulin-dependent type 2 diabetes Stable blood sugar, Sliding-scale insulin, Lantus Diabetic diet Alcohol use disorder In remission x1 year Full Code DVT Prophylaxis: Lovenox Pt will require continued inpatient hospitalization for treatment of?acute HFrEF exacerbation as well as right foot cellulitis with abscess secondary to chronic diabetic foot ulcer. Requiring IV antibiotics, IV diuretics and close clinical follow-up. Quality Stroke Does the patient have a stroke diagnosis?: No VTE Prior VTE?: No VTE Risk Level:: Medical - moderate - high VTE Device Contraindication: Treatment Not Indicated VTE Drug Contraindication: N/A - Med Ordered
[2024-10-19 11:16] VITALS: BP 147/89; PULSE 89; RESP 18; TEMP 36.6; O2SAT 94
[2024-10-19 11:22] LABS: Glucose, Whole Blood 186 mg/dL (60-115)
[2024-10-19] MEDS: Potassium Chloride ER 20 MEQ TAB.ER.PRT PO (11:32)
[2024-10-19 11:40] LABS: Vancomycin Random 15.4 mcg/mL (15-20)
--- NOTE | 2024-10-19 11:53 | HE.PHANOTE ---
[facility] Patients level came back at 15.4. will continue with current dose with predicted AUC 498, next level to be taken 10/20 @1100.
--- NOTE | 2024-10-19 12:42 | HO.WOUND ---
Wound Consult: Initial 44yr old?male admitted to [facility] [place] on 10/17/24 - See progress notes and H&P for detailed history.? Wound consult placed for Right Lateral Foot s/p debridement by Dr. Bettencourt.? Patient agreeable to assessment and photo documentation.? Right Lateral Foot Etiology: ?Diabetic wound s/p Debridement by Dr. Bettencourt? Measurements: 3cm x 2cm x 0.2cm Wound Bed: dried wound bed with two open areas of red moist tissue Drainage / Odor: scant serosang Edges: ? irregular well defined Valerie wound: dark red erythema and swelling - improving per pt statement ? No Induration, Fluctuance or Warmth noted Pain: denies Goals of Treatment: ? Durafiber AG for moisture management and antimicrobial properties. Recommendations: 1. Provide adequate and supplemental nutrition.? 2. When applicable maintain blood glucose levels per Providers order. 3. Right Foot - Elevate foot off of bed surface with pillows. Cleanse with Ns moist gauze, pat dry. Apply skin prep, cover wound bed with Durafiber AG, dry gauze ABD pad and wrap. Change every other day. Limit standing and walking to aid in healing. Re-consult wound care Nurse for wound deterioration or wound changes.
[2024-10-19] MEDS: Insulin Lispro 100 UNIT/ML 3 ML VIAL SUBCUT ×3 (13:25→20:18)
[2024-10-19] MEDS: Enoxaparin Sodium 40 MG/0.4 ML SYRINGE SUBCUT (13:51)
[2024-10-19] MEDS: vancomycin HCL 1,500 MG in 0.9 % Sodium Chloride 500 ML 333 MG IV (13:53)
[2024-10-19 16:11] LABS: Glucose, Whole Blood 211 mg/dL (60-115)
[2024-10-19] MEDS: Magnesium Oxide 400 MG TABLET PO (16:37)
[2024-10-19 19:52] VITALS: BP 132/81; PULSE 92; RESP 16; TEMP 36.8; O2SAT 95
[2024-10-19] MEDS: Insulin Glargine,Hum.rec.anlog 100 UNIT/ML 10 ML VIAL 15 UNIT SUBCUT (20:18)
[2024-10-19] MEDS: carvediloL 25 MG TABLET PO (20:18)
[2024-10-19 20:20] LABS: Glucose, Whole Blood 197 mg/dL (60-115)
[2024-10-20] VITALS (7 sets, daily range): BP systolic 110–140; BP diastolic 70–88; PULSE 78–87; RESP 16–19; TEMP 36.6–36.8; O2SAT 93–99
[2024-10-20] MEDS: Melatonin 3 MG TABLET 6 MG PO (00:31)
[2024-10-20] MEDS: Piperacillin Sodium/Tazobactam 3.375 GM in 0.9 % Sodium Chloride 50 ML IV (06:23)
[2024-10-20 07:03] LABS: Glucose, Whole Blood 139 mg/dL (60-115)
[2024-10-20 07:50] LABS: Hematocrit 36.4 % (42.0-52.0); Hemoglobin 12.1 g/dl (14.0-18.0); Mean Corpuscular HGB Conc 33.2 g/dl (31.0-36.0); Mean Corpuscular Hemoglobin 25.6 pg (27.0-33.0); Platelet Count 173 X10*3/uL (160-400); Red Blood Count 4.73 X10*6/uL (4.60-5.80); Red Cell Distribution Width 14.6 % (11.0-16.0); White Blood Count 6.1 X10*3/uL (4.8-10.8)
[2024-10-20 08:04] LABS: Anion Gap 12 (12-20); B Type Natriuretic Peptide 457 pg/mL (<100); Blood Urea Nitrogen 23 mg/dL (9-16); Calcium 8.9 mg/dL (8.4-10.2); Carbon Dioxide 29 mmol/L (22-29); Chloride 103 mmol/L (96-108); Creatinine Clr Calc Pharmacy 70.7; Estimated Glomerular Filt Rate 49; Glucose Random 149 mg/dL (60-115); Potassium 3.8 mmol/L (3.3-5.1); Sodium 140 mmol/L (135-145)
[2024-10-20] MEDS: Sacubitril/Valsartan 24/26 1 TAB TABLET PO (09:05)
[2024-10-20] MEDS: Magnesium Oxide 400 MG TABLET PO (09:05)
[2024-10-20] MEDS: carvediloL 25 MG TABLET PO (09:05)
[2024-10-20] MEDS: Multivitamin TABLET 1 TAB PO (09:05)
[2024-10-20] MEDS: Spironolactone 25 MG TABLET PO (09:06)
[2024-10-20] MEDS: Furosemide 40 MG/4 ML VIAL IVPUSH (09:06)
[2024-10-20] MEDS: 0.9 % Sodium Chloride Flush 3 ML SYRINGE IVFLUSH (09:07)
--- NOTE | 2024-10-20 10:15 | P.PNCA_ITS ---
Subjective Subjective Date of Service: 10/20/24 Principal diagnosis: Decompensated CHF Interval history: Patient feeling a lot better. Has diuresed well although output was not recorded yesterday for unclear reason. Creatinine has gone up to about 1.55 with BNP down in the 450 range. Patient was feeling well. Leg edema is improved. Blood pressures remained stable. Review of Systems Review of Systems Yes all other systems are reviewed and are negative Physical Exam Vital Signs: Last Vital Signs Temp 98.3 F 10/20/24 07:03 Pulse 84 10/20/24 07:03 Resp 16 10/20/24 07:03 BP 123/80 10/20/24 07:03 Pulse Ox 98 10/20/24 07:03 O2 Del Method Room Air 10/20/24 07:03 BMI result Body Mass Index 29.5 Const General: cooperative, comfortable, no acute distress, alert and awake Nutritional Appearance: average body habitus Orientation/consciousness: patient oriented x3 HEENT Head: Yes normocephalic and Yes atraumatic Neck Neck: Yes trachea midline, Yes supple and Yes no JVD Resp Effort & Inspection: normal respiratory effort Auscultation: crackles Cardio Jugular venous distension: no JVD Palpation: abnormal PMI displaced PMI Rate: regular rate Rhythm: regular rhythm Heart sounds: S1 normal heart sound present, S2 normal heart sound present, no click and no gallops GI Inspection: Yes distended Auscultation: normal bowel sounds Skin General skin exam: no rashes or lesions noted Neuro General: patient oriented x3 and no focal motor deficits Extrem General: No clubbing, No cyanosis and Yes edema Psych Appearance: grossly normal Objective Labs and Meds 10/20/24 07:14 10/20/24 07:14 Lab results: Laboratory Results - last 24 hr 10/19/24 10/19/24 10/19/24 10:52 11:17 16:07 WBC RBC Hgb Hct MCV MCH MCHC RDW Plt Count MPV Absolute Nucleated RBC Nucleated RBC % (auto) Sodium Potassium Chloride Carbon Dioxide Anion Gap BUN Creatinine Estim Creat Clear Calc Estimated GFR POC Glucose 186 H 211 H Random Glucose Calcium B-Natriuretic Peptide Random Vancomycin 15.4 10/19/24 10/20/24 10/20/24 20:10 06:57 07:14 WBC 6.1 RBC 4.73 Hgb 12.1 L Hct 36.4 L MCV 77.0 L MCH 25.6 L MCHC 33.2 RDW 14.6 Plt Count 173 MPV 10.0 Absolute Nucleated RBC 0.000 Nucleated RBC % (auto) 0.0 Sodium 140 Potassium 3.8 Chloride 103 Carbon Dioxide 29 Anion Gap 12 BUN 23 H Creatinine 1.56 H Estim Creat Clear Calc 70.7 Estimated GFR 49 POC Glucose 197 H 139 H Random Glucose 149 H Calcium 8.9 B-Natriuretic Peptide 457 H Random Vancomycin Imaging Radiologist's impression: Impressions Bone Scan Nuclear Medicine 10/19/24 12:00 IMPRESSION: Abnormal first of facial bone scan right lateral foot and right ankle. Mild soft tissue activity seen in the distal fifth metatarsal slightly greater on the right and left and MTP joints of first digit both feet. The above findings are suspicious for cellulitis or inflammatory process. Osteomyelitis is considered unlikely at this time. On the right foot x-ray there is moderate exophytic soft tissue swelling along the fifth MTP joint. Defect seen along the medial distal end of fifth metatarsal on x-rays of 10/16/2024 appears similar to the x-ray of 06/20/2024 and does not represent osteomyelitis. It is likely osteopenia. Electronically signed by: Maynor Barron MD 10/19/2024 04:45 PM [facility] [place] Progress Note: A&P Assessment and plan (1) Acute exacerbation of CHF (congestive heart failure): Status: Acute Assessment and Plan: Decompensated congestive heart failure in this young man is done well with IV diuresis. Clinically appears much more euvolemic. Creatinine has gone up a little bit suggestive of mild cardiorenal syndrome. However he continues to require diuretic regimen at home. Discussed management of heart failure at home. Daily weight monitoring avoidance salt loading was discussed additional diuretics as need be. Started on Lasix 40 mg addition to his carvedilol, Entresto as well as spironolactone therapy. Will follow up in the clinic in 2 weeks time after lab work. He is encouraged to continue pursue electrophysiology follow-up for ICD placement. Patient may be discharged home from cardiac perspective. Time Spent With Patient Time: Total time managing care of this patient today ____ minutes. Progress Note: Quality Stroke Does the patient have a stroke diagnosis?: No Procedures Date of Service Date of Service: 10/20/24
--- NOTE | 2024-10-20 10:37 | P.DS_ITS ---
DS: Providers Provider Date of Service: 10/20/24 Date of admission: 10/17/24 14:08 Date of discharge: 10/20/24 Primary care physician: Tomy Cannon PA-C Consults: 10/17/24 14:17 Consult to Cardiology Routine Consulting Provider: [facility] [facility] Reason for consultation: CHF exacerbation, med management Consult to General Surgery Routine Consulting Provider: [facility] [place] [facility] Reason for consultation: Right foot hematoma/?abscess 10/17/24 18:29 Consult to Wound Care Routine Reason for consultation: diabetic ulcer r of r great toe DS: Diagnosis Discharge Diagnosis (1) Acute exacerbation of CHF (congestive heart failure): Status: Acute DS: Summary Hospital Course Hospital Course: Date of Service: 10/17/24 Attending physician on admission: [facility] Chief Complaint: Leg swelling and right foot sore Pt is a 44-year-old male with a PMH significant for?HFrEF (EF 20-25%), non- ischemic cardiomyopathy, insulin-dependent type 2 diabetes, HTN, alcohol use disorder in remission, chronic diabetic foot ulcers, who presents to the ED with?increased lower leg swelling and right sore. Reports increased leg swelling, SOB, and non-productive cough for the past 1.[address] Ritter in Cardiology who told pt to increase Lasix from 20 mg to 80 mg, though increased dosage has seemingly had little effect. Pt endorses 10 lb weight gain in the last 5 days. Yesterday reports walking around a lot yesterday, and last night when removed his compression stockings a large blister on the side of his right foot formed. Had a similar foot injury in August of this year that required hospitalization for diabetic foot infection. Reports subjective fever and chills x2 days. No nausea, vomiting, abdominal pain. Anton es chest pain/pressure, palpitations. Of note, follows with Wound Care for chronic right diabetic foot ulcer. In the ED pt was tachycardia up to 104 and hypertensive up to 142/103. Labs were significant for CRP 4.63, ESR 55, and BNP 1028 (previous 434 on 08/28). No leukocytosis. Stable H&H. No significant electrolyte abnormalities. Renal and hepatic function baseline. X-ray of right foot with moderate soft tissue swelling/defect in 5th joint, but negative for acute osteomyelitis. CXR unremarkable. EKG demonstrated sinus tachycardia of 101 without evidence of significant ST elevations or depressions. Pt was treated with morphine, furosemide 80 mg IV, vancomycin, and Zosyn. Pt will be admitted to the hospital for treatment and further evaluation of acute HFrEF exacerbation as well as r ight foot cellulitis with possible abscess. Hospital course: 44-year-old male with a PMH significant for?HFrEF (EF 20-25%), non-ischemic cardiomyopathy, insulin-dependent type 2 diabetes, HTN, alcohol use disorder in remission, chronic diabetic foot ulcers, who presents to the ED with?increased lower leg swelling and right sore. Pt will be admitted to the hospital for treatment and further evaluation of acute HFrEF exacerbation as well as right foot cellulitis with possible abscess. Acute HFrEF exacerbation with history of severe nonischemic cardiomyopathy EF 20-25% patient treated with IV Lasix, and was continued on Aldactone, Entresto dose of Coreg increased to 25 mg b.i.d. patient responded well to above treatment > 3 L negative BNP improved from 1028 to 457, appears euvolemic leg edema resolved lungs clear with no crackles therefore being discharged home with recommendation to continue all home medication and Started on Lasix 40 mg daily recommend close outpatient follow-up with Cardiology. Right foot cellulitis secondary to chronic diabetic foot ulcer, noted to have large blister/abscess on right lateral aspect 5th digit status post I&D by General surgery, no sepsis noted treated with IV vancomycin and Zosyn for 3 days blood culture showed no growth wound culture grew Staphylococcus and enterobacter cloacae , bone scan showed no osteomyelitis, patient is being discharged home on 4 more days of Levaquin 500 mg daily and recommend wound dressing as per wound nurse. Acute hypo magnesemia repleted, take MGoxide 1 tablet daily. History of orthostatic hypotension probably related to diabetic autonomic dysfunction, orthostatic BP negative on day of discharge. Insulin-dependent type 2 diabetes continue Lantus and diabetic diet Alcohol use disorder In remission x1 year Time Attestation Discharge Coordination Time (in mins): 40 Quality: Safe Use of Opioids Does Pt have an Active Cancer Diagnosis on the Problem List?: No Quality: Stroke Does the patient have a stroke diagnosis?: No Physical Exam Vital Signs: Vital Signs: Last Vital Signs Temp 98.3 F 10/20/24 07:03 Pulse 84 10/20/24 07:03 Resp 16 10/20/24 07:03 BP 123/80 10/20/24 07:03 Pulse Ox 98 10/20/24 07:03 O2 Del Method Room Air 10/20/24 07:03 BMI result Body Mass Index 29.5 Const: Other: General resting comfortably in no acute distress. Neck no JVD. CVS regular rate rhythm, Respiratory lungs no crackles, no respiratory distress, Gastrointestinal abdomen soft, non tender, bowel sounds audible Extremities edema resolved Right foot open wound right forefoot clean, no drainage, no surrounding redness. Neuro non focal Psych appropriate affect DS: Data Data Completed and Pending Completed studies during hospitalization [Text1]: Procedures Excision of Right Foot Subcutaneous Tissue and Fascia, Open Approach (08/22/24) Labs on day of discharge: Laboratory Results - last 24 hr 10/19/24 10/19/24 10/19/24 10:52 11:17 16:07 WBC RBC Hgb Hct MCV MCH MCHC RDW Plt Count MPV Absolute Nucleated RBC Nucleated RBC % (auto) Sodium Potassium Chloride Carbon Dioxide Anion Gap BUN Creatinine Estim Creat Clear Calc Estimated GFR POC Glucose 186 H 211 H Random Glucose Calcium B-Natriuretic Peptide Random Vancomycin 15.4 10/19/24 10/20/24 10/20/24 20:10 06:57 07:14 WBC 6.1 RBC 4.73 Hgb 12.1 L Hct 36.4 L MCV 77.0 L MCH 25.6 L MCHC 33.2 RDW 14.6 Plt Count 173 MPV 10.0 Absolute Nucleated RBC 0.000 Nucleated RBC % (auto) 0.0 Sodium 140 Potassium 3.8 Chloride 103 Carbon Dioxide 29 Anion Gap 12 BUN 23 H Creatinine 1.56 H Estim Creat Clear Calc 70.7 Estimated GFR 49 POC Glucose 197 H 139 H Random Glucose 149 H Calcium 8.9 B-Natriuretic Peptide 457 H Random Vancomycin Preliminary micro results at discharge 10/17/24 11:40 Blood Culture - Preliminary Blood - Venous No growth after 48 hours. 10/17/24 11:33 Blood Culture - Preliminary Blood - Venous No growth after 48 hours. Discharge Plan Discharge Anticipated Discharge Date/Time: 10/20/24 10:24 Patient Disposition: Home Health Service Discharge Diagnosis: Acute CHF exacerbation with reduced EF Right foot cellulitis secondary to chronic diabetic foot ulcer Referrals: Yovanny WALLACE [Outside] - 1 Week Tomy Cannon PA-C [Primary Care Provider] - 1 Week Discharge Medications: New carvedilol 25 mg Tablet 25 mg PO BID Qty: 180 0RF Protocol: Hold for SBP/HR < HOLD for SBP < : 90 HOLD for HR < : 60 magnesium oxide 400 mg (241.3 mg magnesium) Tablet 400 mg PO DAILY Qty: 90 0RF furosemide [Lasix] 40 mg tablet 40 mg PO DAILY Qty: 90 0RF levofloxacin 500 mg Tablet 500 mg PO Q24H Qty: 4 0RF Continued (DME) FreeStyle Elaine 3 Sensor Device See Rx Instructions .Route Qty: 1 3RF Rx Instructions: As directed albuterol sulfate 90 mcg/actuation HFA aerosol inhaler 1 inh inhalation QID PRN (Reason: shortness of breath or wheezing) 30 Days Qty: 8.5 0RF (DME) FreeStyle Elaine 3 Sensor Device See Rx Instructions .Route Qty: 2 6RF Rx Instructions: As directed (DME) pen needle, diabetic [BD Lula 2nd Gen Pen Needle] 32 gauge x 5/32 needle See Rx Instructions .ROUTE DAILY Qty: 1200 1RF Rx Instructions: 4 times per day sacubitril-valsartan [Entresto] 24-26 mg tablet 1 tab PO BID Qty: 60 5RF furosemide 80 mg tablet 80 mg PO DAILY PRN (Reason: swelling/edema) insulin glargine [Lantus Solostar U-100 Insulin] 100 unit/mL (3 mL) insulin pen 18 unit subcut BEDTIME insulin lispro 100 unit/mL insulin pen See Protocol subcut TIDAC Protocol: Insulin Correction Scale Less than or equal to 110 ---- Give (units): 0 111 to 150 Give (units): 0 151 to 200 Give (units): 2 201 to 250 Give (units): 4 251 to 300 Give (units): 6 301 to 350 Give (units): 8 Greater than 350 Give (units): 10 Call MD if Blood Glucose > : 350 Rx Instructions: Breakfast, Lunch and Dinner (DME) FreeStyle Elaine 3 [place]arton Misc See Rx Instructions .Route Qty: 1 0RF Rx Instructions: As directed multivitamin Tablet 1 tab PO DAILY spironolactone [Aldactone] 25 mg tablet 25 mg PO DAILY 30 Days Qty: 30 3RF Discontinued carvedilol 3.125 mg tablet 12.5 mg PO BID Discharge Orders: Discharge Order (Routine); Ordered 10/20/24 Ordered By: Livan Love Diet: Diabetic diet Activity on Discharge: As tolerated Stand Alone Forms: Patient Portal Discharge page Print Language: [place] Activity Restrictions/Additional Instructions: Topical Wound Care Recommendations: 1. Provide adequate and supplemental nutrition.? 2. When applicable maintain blood glucose levels per Providers order. 3. Right Foot - Elevate foot off of bed surface with pillows. Cleanse with Ns moist gauze, pat dry. Apply skin prep, cover wound bed with Durafiber AG, dry gauze ABD pad and wrap. Change every other day. Limit standing and walking to aid in healing. Care Plan Goals: Acute congestive heart failure due to low ejection fraction take Lasix 40 mg amelia ly, dose of Coreg increased to 25 mg twice a day Take magnesium supplement 1 tablet daily In regard to foot infection take Levaquin 500 mg daily for 4 days VNA services for wound dressing. Follow orthostatic blood pressures periodically or with symptoms of lightheadedness and dizziness. Health Concerns: Take all other home medication as before, follow diabetic diet Plan of Treatment: Outpatient follow-up with Cardiology call for appointment Outpatient follow-up with primary care physician call for appointment Assessment: As above
--- NOTE | 2024-10-20 10:40 | MHC.CM.PN ---
Per ROUNDS discussion, is requesting [facility] for wound care; CM will follow.
--- NOTE | 2024-10-20 11:00 | MHC.CM.PN ---
Patient has been medically cleared for dc to home today, with services. A referral has been made to [facility](Patient's choice), who has been made aware of today's dc.
[2024-10-20 11:15] LABS: Magnesium 1.6 mg/dL (1.6-2.6)
[2024-10-20 11:19] LABS: Glucose, Whole Blood 182 mg/dL (60-115)
[2024-10-20 11:25] LABS: Vancomycin Random 16.1 mcg/mL (15-20)
--- NOTE | 2024-10-20 11:39 | P.F2F_ITS ---
Service Date Service Date: 10/20/24 Encounter Date of encounter: 10/20/24 Reasons for Services Signs and symptoms assessed: CHF/nonischemic cardiomyopathy/diabetes mellitus/right foot wound Reason for intermediate: CV/CP assess and/or care, wound care, diabetic teaching and medication management Homebound: Leaving the home is medically contraindicated at this time without the asist of a device and/or another person due th the listed conditions above and below. Reason homebound: pain with ambulation and weakness related to hospital stay Certification: Based on the above findings, I certify that this patient is confined to the home and needs intermittent intermediate care, physical therapy and/or speech therapy, or continues to need occupational therapy. The patient is under my care, and I have initiated the establishment of the plan of care. The patient will be followed by a physician who will periodically review the plan of care. Time Spent With Patient Time: Total time managing care of this patient today ____ minutes.
--- NOTE | 2024-10-20 12:43 | PC.NURSE ---
tHIS rn MISSED THE ANTIBIOTIC DOSE THAT WAS DUE FOR 11 AM. CALLED PATIENT AND MET HIM IN THE ED ENTRANCE WITH PAPERWORK STATING TO TAKE HIS FIRST DOSE ONCE HE GETS THE SCRIPT FROM PHARMACY, VERBALIZED HIS UNDERSTANDING
== END 2024-10-20 12:23 | disposition home health service (06) | DRG 194 ==
LOC: HO.ED 10-17 12:25 → HO.EDOVER 10-17 14:21 → HO.IMC 10-17 15:10
PROVIDERS: Emergency Medicine; Internal Medicine; Physician Assistant Medical; Admitting Provider Student in an Organized Health Care Education/Training Program; Emergency Provider Student in an Organized Health Care Education/Training Program; PCP Physician Assistant; Visit Provider Hospitalist
DX: I11.0 Hypertensive heart disease with heart failure (principal); I42.8 Other cardiomyopathies; E11.43 Type 2 diabetes mellitus with diabetic autonomic (poly)neuropathy; L97.519 Non-pressure chronic ulcer of other part of right foot with unspecified severity; L02.611 Cutaneous abscess of right foot; B95.61 Methicillin susceptible Staphylococcus aureus infection as the cause of diseases classified elsewhere; B96.89 Other specified bacterial agents as the cause of diseases classified elsewhere; E11.628 Type 2 diabetes mellitus with other skin complications; I50.23 Acute on chronic systolic (congestive) heart failure; T50.1X6A Underdosing of loop [high-ceiling] diuretics, initial encounter; F10.91 Alcohol use, unspecified, in remission; E11.621 Type 2 diabetes mellitus with foot ulcer; I95.1 Orthostatic hypotension; E83.42 Hypomagnesemia; Z79.4 Long term (current) use of insulin; Z79.899 Other long term (current) drug therapy
CPT/HCPCS: 36415; 71045; 73630; 78300; 80048; 80053; 80202; 82947; 83605; 83735; 83880; 84484; 85025; 85027; 85610; 85652; 85730; 86140; 87040; 87070; 87077; 87186; 87205; 93005; 99285; A9503; J1650; J1940; J2270; J2543; J3370; J3371; J3475

== ENCOUNTER → 2024-10-16 17:58 | Outpatient (BNV) | payer OTHER, SELFPAY | PROVIDERS: PCP Physician Assistant; Visit Provider Student in an Organized Health Care Education/Training Program | DX: R06.02 Shortness of breath (principal) | CPT/HCPCS: 73630 ==

== ENCOUNTER → 2024-10-17 11:03 | Outpatient (BNV) | payer MEDICAID, SELFPAY | PROVIDERS: Admitting Provider Student in an Organized Health Care Education/Training Program; Emergency Provider Student in an Organized Health Care Education/Training Program; PCP Physician Assistant; Visit Provider Internal Medicine Cardiovascular Disease | DX: R00.0 Tachycardia, unspecified (principal) | CPT/HCPCS: 93010 ==

== ENCOUNTER → 2024-10-17 11:03 | Outpatient (BNV) | payer MEDICAID, SELFPAY | PROVIDERS: Emergency Provider Student in an Organized Health Care Education/Training Program; PCP Physician Assistant; Visit Provider Radiology Diagnostic Radiology | DX: R06.00 Dyspnea, unspecified (principal) | CPT/HCPCS: 71045 ==

== ENCOUNTER 2024-10-17 14:08 | Outpatient (BNV) | payer OTHER, SELFPAY | END 2024-10-19 12:00 | PROVIDERS: Admitting Provider Student in an Organized Health Care Education/Training Program; Emergency Provider Student in an Organized Health Care Education/Training Program; PCP Physician Assistant; Visit Provider Radiology Diagnostic Radiology | DX: M77.41 Metatarsalgia, right foot (principal) | CPT/HCPCS: 78300 ==

== ENCOUNTER → 2024-10-17 14:08 | Outpatient (BNV) | payer OTHER, SELFPAY | PROVIDERS: Admitting Provider Student in an Organized Health Care Education/Training Program; Emergency Provider Student in an Organized Health Care Education/Training Program; PCP Physician Assistant; Visit Provider Internal Medicine Cardiovascular Disease | DX: I50.9 Heart failure, unspecified (principal) | CPT/HCPCS: 99222 ==

== ENCOUNTER → 2024-10-17 14:08 | Outpatient (BNV) | payer MEDICAID, SELFPAY | PROVIDERS: Admitting Provider Student in an Organized Health Care Education/Training Program; Emergency Provider Student in an Organized Health Care Education/Training Program; PCP Physician Assistant; Visit Provider Student in an Organized Health Care Education/Training Program | DX: I50.9 Heart failure, unspecified (principal); L02.611 Cutaneous abscess of right foot; L03.119 Cellulitis of unspecified part of limb | CPT/HCPCS: 99223 ==

== ENCOUNTER → 2024-10-17 14:08 | Outpatient (BNV) | payer OTHER, SELFPAY | PROVIDERS: Admitting Provider Student in an Organized Health Care Education/Training Program; Emergency Provider Student in an Organized Health Care Education/Training Program; PCP Physician Assistant; Visit Provider Surgery | DX: L03.115 Cellulitis of right lower limb (principal) | CPT/HCPCS: 11042; 99222; 99232 ==

== ENCOUNTER 2024-11-03 07:47 | Outpatient (AMB) | payer OTHER, SELFPAY ==
--- OUTSIDE RECORDS SUMMARY | 2024-11-03 07:49 | XMS_ITS ---
Author Name [facility] Organization Unknown Care Team Organization Name Specialty Phone Email Start Date End [facility] ([facility] 2023 [facility] 07/22/2024
--- NOTE | 2024-11-03 07:53 | MHC.PC.OV ---
Vital Signs 11/03/24 07:54 Height 5 ft 10 in Weight 195 lb BMI 28.0 BP 118/68 Blood Pressure Location Lt brachial Position Sitting Pulse 95 Pulse Source Pulse Oximeter Pulse Oximetry (%) 98 Oxygen Delivery Method Room Air Intake Visit Reasons: acute CHF + cellulitis r/t chronic diabetic ulcer Allergies metformin Adverse Reaction (Intermediate, Verified 11/03/24 07:54) GI side effects Tobacco use date assessed: 11/03/24 Dental Screening Dental Screen Date: 09/01/24 HPI HPI Comments History of Present Illness Details 44 y/o male patient who presents to the clinic for HDF. Pmhx significant for HFrEF (EF 20-25%), non-ischemic cardiomyopathy, insulin-dependent type 2 diabetes, HTN, alcohol use disorder in remission, and chronic diabetic foot ulcers. Pt was admitted at [facility] [place] on 10/17-10/20 due to CHF Exacerbation and Right Foot Great Toe Abscess (Diabetic Foot Ulcer). Acute HFrEF exacerbation with history of severe non-ischemic Cardiomyopathy EF 20-25% patient was treated with IV Lasix, Aldactone and Entresto was continued.Coreg was increased to 25 mg b.i.d. He has an appointment with Cardiology on 11/07. [facility] Medical History DMII (diabetes mellitus, type 2) Cardiomyopathy Foot callus Cellulitis of foot Chronic combined systolic and diastolic CHF (congestive heart failure) Palpitation JOLIE (generalized anxiety disorder) MDD (major depressive disorder), recurrent episode, moderate Diabetic foot ulcer Cardiomyopathy Alcohol use disorder in remission HTN (hypertension) CHF (congestive heart failure) Small bowel obstruction Hx of intestinal obstruction Erectile disorder due to medical condition in male patient (~10/17/24) Knee pain, right Surgical History Hx of esophagogastroduodenoscopy History of appendectomy History of hernia surgery Family History Mother Diabetes High blood pressure Social History Household Members: None Household Members Other:: three kids and Housing: House Do you presently have visiting nurse or other home services: No Alcohol intake: never Patient Tobacco Use Status: Never used Tobacco Tobacco use type: Cigarette e-Cigarette/Vaping Use: Never Used Second Hand Smoke Exposure: No Advance Directives Date on File: 12/16/23 service: No Current occupational status: employed Current occupation: right handed Cognitive needs: No Hearing needs: No Vision needs: No Questionnaire PHQ-9 Over the last 2 weeks, how often have you been bothered by any of the following problems? 1. Little interest or pleasure in doing things: more than half the days 2. Feeling down, depressed, or hopeless: nearly every day 3. Trouble falling or staying asleep, or sleeping too much: more than half the days 4. Feeling tired or having little energy: several days 5. Poor appetite or overeating: more than half the days 6. Feeling bad about yourself - or that you are a failure or have let yourself or your family down: several days 7. Trouble concentrating on things, such as reading the newspaper or watching television: several days 8. Moving or speaking so slowly that other people could have noticed. Or the opposite - being so fidgety or restless that you have been moving around a lot more than usual: not at all 9. Thoughts that you would be better off or of hurting yourself in some way: not at all Total score: 12 Depression Screening Interpretation: Positive Depression Screening Follow-up: Existing condition and In treatment Depression Screening Done: Yes 73962 - PHQ-9 Billing: Yes Source: Developed by Drs. Josh Nava, Shelby Peres, Manuel Lloyd and colleagues, with an educational zaid from [employer]. Thrive Questionnaire Date Thrive assessed: 10/18/24 JOLIE-7 AMB Questionnaire JOLIE-7 Date JOLIE - 7 assessed: 09/01/24 Source: Developed by Drs. Josh Nava, Shelby Peres, Manuel Lloyd and colleagues, with an educational zaid from [employer]. Review of Systems Const All systems reviewed & are unremarkable except as noted in HPI and below Physical exam (Primary Care) Vital Signs: Last Vital Signs Pulse 95 11/03/24 07:54 BP 118/68 11/03/24 07:54 Pulse Ox 98 11/03/24 07:54 Oxygen Delivery Method Room Air 11/03/24 07:54 BMI result Body Mass Index 28.0 Tobacco/Smoking Status: Tobacco use Status Tobacco use date assessed 11/03/24 11/03/24 07:58 Patient Tobacco Use Status Never used Tobacco 11/03/24 07:58 Tobacco use type Cigarette 11/03/24 07:58 e-Cigarette/Vaping Use Never Used 11/03/24 07:58 PHQ-9: PHQ-9 Score PHQ-9: Total score 12 11/03/24 07:58 Depression Screening Interpretation: Positive Depression Screening Follow-up: Existing condition and In treatment Thrive Assessment: Date of Thrive Assessment Date Thrive assessed 10/18/24 11/03/24 07:58 Const General: cooperative and no acute distress Orientation/consciousness: patient oriented x3 Resp Effort & Inspection: normal respiratory effort and able to speak in complete sentences Auscultation: clear to auscultation bilaterally Cardio Heart sounds: S1 normal heart sound present and S2 normal heart sound present Neuro General: patient oriented x3, gait normal and moves all extremities Psych Speech and movement: Normal speech and movement present Coding Level of Care Code Est Pt Level 4 (13001) Diagnoses Acute on chronic congestive heart failure, unspecified heart failure type I50.9 Heart failure type: unspecified Foot abscess, right L02.611 Additional Codes PHQ-9 - 26248 - PHQ-9 Billing: Yes ([id number]) Time Spent (min) 20 Assessment & Plan Assessment & Plan (1) Acute exacerbation of CHF (congestive heart failure): Code(s): I50.9 - Heart failure, unspecified Category: Medical Qualifiers: Heart failure type: unspecified Qualified Code(s): I50.9 - Heart failure, unspecified Plan: Managed by Cardiology. Has an appointment scheduled for 11/07/24. (2) Foot abscess, right: Code(s): L02.611 - Cutaneous abscess of right foot Category: Medical Plan: Managed by Wound Care clinic.
[2024-11-03 07:54] VITALS: BP 118/68; PULSE 95; O2SAT 98; BMI 28.0
== END 2024-11-03 09:44 | disposition home or self-care (01) ==
LOC: HO.HMCH 07:47
PROVIDERS: PCP Physician Assistant; Visit Provider Nurse Practitioner Family
DX: I50.9 Heart failure, unspecified (principal); L02.611 Cutaneous abscess of right foot

== ENCOUNTER 2024-11-03 07:47 | Outpatient (REF) | payer OTHER, SELFPAY ==
[2024-11-03 09:38] LABS: Anion Gap 8 (12-20); Blood Urea Nitrogen 42 mg/dL (9-16); Calcium 9.1 mg/dL (8.4-10.2); Carbon Dioxide 24 mmol/L (22-29); Chloride 112 mmol/L (96-108); Estimated Glomerular Filt Rate > 60; Glucose Random 219 mg/dL (60-115); Potassium 4.5 mmol/L (3.3-5.1); Sodium 139 mmol/L (135-145)
== END 2024-11-03 07:48 | disposition home or self-care (01) ==
LOC: HO.LAB 07:47
PROVIDERS: Absent Provider Internal Medicine; PCP Physician Assistant; Visit Provider Nurse Practitioner Family
DX: I11.0 Hypertensive heart disease with heart failure (principal); I50.43 Acute on chronic combined systolic (congestive) and diastolic (congestive) heart failure; I42.8 Other cardiomyopathies; E11.65 Type 2 diabetes mellitus with hyperglycemia; E11.621 Type 2 diabetes mellitus with foot ulcer; L97.509 Non-pressure chronic ulcer of other part of unspecified foot with unspecified severity; L02.611 Cutaneous abscess of right foot
CPT/HCPCS: 36415; 80048; 96127; 99212

== ENCOUNTER 2024-11-07 08:47 | Outpatient (AMB) | payer OTHER, SELFPAY ==
[2024-11-07 08:52] VITALS: BP 130/80; PULSE 92; BMI 27.9
--- NOTE | 2024-11-07 08:52 | A.OFFVIS_ITS ---
Vital Signs 11/07/24 08:52 Height 5 ft 10 in Weight 194 lb 7.163 oz BMI 27.9 BP 130/80 Blood Pressure Location Rt brachial Position Sitting Pulse 92 Pulse Source Monitor Intake Visit Reasons: [place] [facility] [place] Javascript Programmer Required: No Allergies metformin Adverse Reaction (Intermediate, Verified 11/07/24 08:54) GI side effects Medication List - Last Reconciled 11/07/24 by LISA Contreras albuterol sulfate 90 mcg/actuation 1 inh inhalation QID PRN 30 days blood-glucose meter,continuous (FreeStyle Elaine 3 [place]) As directed blood-glucose sensor (FreeStyle Elaine 3 Sensor device) As directed blood-glucose sensor (FreeStyle Elaine 3 Sensor device) As directed carvedilol 25 mg See Protocol PO BID empagliflozin (Jardiance) 10 mg PO DAILY furosemide (Lasix) 40 mg PO DAILY insulin glargine (Lantus Solostar U-100 Insulin) 18 units subcut BEDTIME insulin lispro See Protocol units subcut TIDAC magnesium oxide 400 mg PO DAILY multivitamin 1 tab PO DAILY pen needle, diabetic (BD Lula 2nd Gen Pen Needle) 4 times per day sacubitril-valsartan 24-26 mg (Entresto) 1 tab PO BID spironolactone (Aldactone) 25 mg PO DAILY 30 days HPI HPI [place] [facility] [place]: Details: Mark is a 44-year-old male with past medical history hypertension, diabetes, prior alcohol use, nonischemic cardiomyopathy who was recently admitted to [facility] for decompensated heart failure. He was diuresed and sent home with Lasix 40 mg daily. His most recent EF is 20-25%. On last visit a cardiac MRI was ordered however not completed as of yet. He was also referred to [facility] for advanced heart failure management and to EP for ICD. Today he reports he has been doing well since his hospital discharge on 10/20/2024. His breathing is comfortable at rest. He has some shortness of breath when he over exerts. No PND, orthopnea or edema. He reports significant leg edema prior to his hospital admission. He has been tolerating his meds w ithout low blood pressure readings. No chest discomfort at rest or with activity. No lightheadedness, presyncope, syncope. Taking all meds as directed. Denies alcohol use. [facility] Medical History (Updated 11/07/24 @ 11:10 by Yolanda Dave NP-C) Cardiomyopathy HTN (hypertension) DMII (diabetes mellitus, type 2) Cardiomyopathy Foot callus Cellulitis of foot Chronic combined systolic and diastolic CHF (congestive heart failure) Palpitation JOLIE (generalized anxiety disorder) MDD (major depressive disorder), recurrent episode, moderate Diabetic foot ulcer Alcohol use disorder in remission CHF (congestive heart failure) Small bowel obstruction Hx of intestinal obstruction Erectile disorder due to medical condition in male patient (~10/17/24) Knee pain, right Surgical History Hx of esophagogastroduodenoscopy History of appendectomy History of hernia surgery Family History Mother Diabetes High blood pressure Social History Household Members: None Household Members Other:: three kids and Housing: House Do you presently have visiting nurse or other home services: No Alcohol intake: never Patient Tobacco Use Status: Never used Tobacco Tobacco use type: Cigarette e-Cigarette/Vaping Use: Never Used Second Hand Smoke Exposure: No Advance Directives Date on File: 12/16/23 service: No Current occupational status: employed Current occupation: right handed Cognitive needs: No Hearing needs: No Vision needs: No Review of Systems Const All systems reviewed & are unremarkable except as noted in HPI and below ENT Denies dizziness Card Denies chest pain, Denies chest pain at rest, Denies chest pain with activity, Denies rapid heart rate, Denies pedal edema, Denies edema, Denies leg edema, Denies lightheadedness, Denies palpitations, Denies dyspnea, Denies dyspnea on exertion and Denies orthopnea Resp Denies cough, Denies dyspnea and Denies dyspnea on exertion GI Denies hematochezia and Denies change in stool character Musc Denies abnormal gait, Denies limited range of motion, Denies muscle cramps, Denies muscle weakness, Denies numbness, Denies radiating pain into limb, Denies stiffness and Denies tingling Neuro Denies abnormal gait, Denies dizziness, Denies numbness and Denies tingling Endo Denies palpitations Physical Exam Vital Signs: Last Vital Signs Pulse 92 11/07/24 08:52 BP 130/80 11/07/24 08:52 BMI result Body Mass Index 27.9 Const General: cooperative, healthy appearing, comfortable and no acute distress Orientation/consciousness: patient oriented x3 Neck Neck: Yes normal visual inspection and Yes no JVD Resp Effort & Inspection: normal respiratory effort Auscultation: clear to auscultation bilaterally, no rales, no rhonchi and no wheezes Cardio Rate: regular rate Rhythm: regular rhythm Heart sounds: S1 normal heart sound present, S2 normal heart sound present, no gallops, no murmurs and no rubs Neuro General: patient oriented x3 Extrem General: Yes normal to inspection, No no pedal edema and No calf tenderness Psych Appearance: grossly normal Mental Status: mental status grossly normal Speech and movement: Normal speech and movement present Office Procedures EKG Details: Today, read by me, normal sinus rhythm, rate 92, Qtc 479ms [id number], Complete Results Reviewed Results Reviewed: Echocardiogram from 11/2023-LVEF 35-40%. Moderate diastolic dysfunction. No significant valvular findings. Repeat echocardiogram from 04/2024-LVEF 28%. Most recent study from 08/2024, LVEF 20-25%. Myocardial perfusion imaging study from 02/2024-probably normal perfusion. Gated LVEF was 25% during stress and 33% during rest. Holter 03/2024-underlying rhythm is sinus with an average rate of 103/Min. Frequent sinus tachycardia. Assessment & Plan Assessment & Plan (1) Acute exacerbation of CHF (congestive heart failure): Code(s): I50.9 - Heart failure, unspecified Category: Medical Qualifiers: Heart failure type: unspecified Qualified Code(s): I50.9 - Heart failure, unspecified Plan[place] [facility] [place] with decompensated heart failure. Diuresed and put on Lasix 40 mg daily at discharge. He was continued on Aldactone, Entresto, carvedilol. Most recent EF 20-25%. Does not appear fluid overloaded on exam today. NYHA class 2 symptoms. On last visit he was referred to [facility] heart failure specialist. He was also referred to EP for ICD placement. He has an appointment on 11/13 but unclear which provider he is seeing. Cardiac MRI ordered however not completed yet. He is waiting for them to call him with appointment. Reviewed the signs and symptoms of decompensated heart failure with him. Discussed daily weights and fluid restriction less than 48 oz daily. Follow low-salt diet. Continue Entresto and carvedilol for neurohormonal modulation. Continue Aldactone, Lasix and Jardiance. If he does have increasing edema or weight gain greater than 3 lb he can take additional Lasix for 2-3 days and then resume usual dose. ED care if needed for symptoms. Will keep cardiology follow-up December 2024, to go over MRI results and reassess. (2) Chronic combined systolic and diastolic CHF (congestive heart failure): Code(s): I50.42 - Chronic combined systolic (congestive) and diastolic (congestive) heart failure Category: Medical Plan: As above (3) Cardiomyopathy: Code(s): I42.9 - Cardiomyopathy, unspecified Category: Medical Qualifiers: Cardiomyopathy type: dilated Qualified Code(s): I42.0 - Dilated cardiomyopathy Plan: Nonischemic. Thought to be related to alcohol use. Currently denies drinking alcohol. (4) HTN (hypertension): Code(s): I10 - Essential (primary) hypertension Category: Medical Qualifiers: Hypertension type: primary hypertension Qualified Code(s): I10 - Essential (primary) hypertension Plan: Well controlled at this time. No med changes made. He has had orthostatic hypotension in the past. Currently not experiencing symptoms or documenting low blood pressures. (5) Hospital discharge follow-up: Code(s): Z09 - Encounter for follow-up examination after completed treatment for conditions other than malignant neoplasm Category: Medical Plan: [facility] [place] reviewed Plan Time spent on chart review, documentation, interview and assessment Coding Level of Care Code Est Pt Level 4 (25821) Complex EM visit Add On G2211 Diagnoses Acute on chronic congestive heart failure, unspecified heart failure type I50.9 Heart failure type: unspecified Chronic combined systolic and diastolic CHF (congestive heart failure) I50.42 Dilated cardiomyopathy I42.0 Cardiomyopathy type: dilated Primary hypertension I10 Hypertension type: primary hypertension Hospital discharge follow-up Z09 CPT Codes EKG - CPT: 52711-[id number], Complete ([id number]) Time Spent (min) 30
--- OUTSIDE RECORDS SUMMARY | 2024-11-07 09:25 | XMS_ITS | Clinical Summary ---
Author Organization [address] [place] [address] Address [address] [place] [address] Phone Care Team Providers Care Websphere Architect Name Role Phone Tomy Cannon Primary Care [...] AM EST Office Visit Orthopedic Surgery - [place] [address] [facility] [address] [place] [address] Costa Blakely DPM Controlled type 2 [...] AM EDT Office Visit Orthopedic Surgery - [place] [address] [facility] [address] [place] [phone] Costa Blakely, ELIZABETH [address] [facility] [address] [place] [address] Health Maintenance Due Date Last Done Comments [...] of 2 - PCV) 2001 COVID-19 Vaccine ( - 2023-2 5 season) 2024 Influenza Vaccine (#1) 2024 [...] patient's age to complete this topic Insurance [place]ICAID - [place] Care Teams Websphere Architect Relationship Specialty Start Date End Date Tomy Cannon PA [address] [place] [phone] PCP - General 03/15/24
== END 2024-11-07 09:29 | disposition home or self-care (01) ==
LOC: HO.HCS 08:48
PROVIDERS: PCP Physician Assistant; Visit Provider Nurse Practitioner Family
DX: I50.9 Heart failure, unspecified (principal); I50.42 Chronic combined systolic (congestive) and diastolic (congestive) heart failure; I42.0 Dilated cardiomyopathy; I10 Essential (primary) hypertension; Z09 Encounter for follow-up examination after completed treatment for conditions other than malignant neoplasm
CPT/HCPCS: 93010; 99214; G2211

== ENCOUNTER → 2024-11-07 08:47 | Outpatient (BNVA) | payer OTHER, SELFPAY | PROVIDERS: PCP Physician Assistant; Visit Provider Nurse Practitioner Family | DX: I11.0 Hypertensive heart disease with heart failure (principal); I42.8 Other cardiomyopathies; I50.42 Chronic combined systolic (congestive) and diastolic (congestive) heart failure; E11.9 Type 2 diabetes mellitus without complications; I42.0 Dilated cardiomyopathy; Z09 Encounter for follow-up examination after completed treatment for conditions other than malignant neoplasm | CPT/HCPCS: 93005; 99212 ==

== ENCOUNTER 2024-11-29 10:19 | Outpatient (REF) | payer OTHER, SELFPAY ==
--- OUTSIDE RECORDS SUMMARY | 2024-11-29 12:00 | XMS_ITS | Clinical Summary ---
Author Organization [address] [place] [address] Address [address] [place] [address] Phone Care Team Providers Care Dipper Clock And Watch Hands Name Role Phone Tomy Cannon Primary Care Provider [phone] Allergies Active Allergy Reactions Criticality Noted Date Comments Metformin 06/14/2024 Medications pioglitazone (ACTOS) 30 mg tablet Take 1 Tablet by mouth daily. Active insulin lispro (HumaLOG Balaji KwikPen U-100) 100 unit/mL HALF-UNIT injection pen Inject into the skin. Active carvediloL (COREG) 3.125 mg tablet Take 1 Tablet by mouth 2 times daily (with meals). Active Encounters Date Type Department Care Team Description 11/16/2024 9:30 AM EDT Office Visit Orthopedic Surgery [facility] [address] [phone] Costa Blakely DPM Controlled type 2 diabetes mellitus with diabetic polyneuropathy, without long-term current use of insulin ([facility] V24, [facility] V28) (Primary Dx); Onychomycosis; Localized edema; Metatarsalgia of both feet; Midfoot ulceration, right, with fat layer exposed ([facility] V24, [facility] V28) 09/14/2024 9:45 AM EST Office Visit Orthopedic Surgery [facility] [address] [phone] Costa Blakely DPM Controlled type 2 diabetes mellitus with diabetic polyneuropathy, without long-term current use of insulin ([facility] V24, CMS/HCC V28) (Primary Dx); Neuropathy; Onychomycosis; Callus; Localized edema; Metatarsalgia of both feet; Midfoot ulceration, right, with fat layer exposed ([facility] V24, [facility] V28) from Last 3 Months Social History Tobacco [...] - - Weight 90.7 kg (200 lb) 11/16/2024 9:32 AM EDT Height 177.8 cm (5' 10 ) 11/16/2024 9:32 AM EDT Body Mass Index 28.7 11/16/2024 9:32 AM EDT Plan of Treatment Upcoming Encounters Date Type Department Care Team (Late st Contact Info) Description 01/18/2025 9:15 AM EDT Office Visit Orthopedic Surgery - [place] [address] [phone] Costa Blakely, ELIZABETH [address] [address] Health Maintenance Due Date Last Done Comments [...] 2001 COVID-19 Vaccine (2023-2 5 season) 2024 Cholesterol Screening (Lipid Panel) 05/29/2024 Depression Screening 05/29/2024 HIV Screening 05/29/2024 Hepatitis C Screening 05/29/2024 Social Influencers of Health Screening 05/29/2024 Diabetes: Annual Urine Albumin-Creatinine Ratio (uACR) 09/14/2024 Diabetes: Blood Sugar Contro l Test (HGBA1C) 09/14/2024 Influenza Vaccine (Season Ended) 2025 HIB Vaccines Aged Out No longer eligi [...] age to complete this topic Meningococcal B Vaccine Aged Out No l onger eligible based on patient's age to complete this topic RSV Immunization Patients Un minal 20 months Aged Out No longer eligible b ased on patient's age to complete this topic Varicella Vaccines Aged Out No longer eligible based on patient's age to complete this topic Insurance [facility] Care Teams Dipper Clock And Watch Hands Relationship Specialty Start Date End Date Tomy Cannon PA [address] [place] [phone] PCP - General 03/15/24
[2024-11-29 12:11] LABS: Anion Gap 11 (12-20); Blood Urea Nitrogen 50 mg/dL (9-16); Calcium 9.4 mg/dL (8.4-10.2); Carbon Dioxide 24 mmol/L (22-29); Chloride 106 mmol/L (96-108); Estimated Glomerular Filt Rate 41; Glucose Random 325 mg/dL (60-115); Potassium 5.3 mmol/L (3.3-5.1); Sodium 136 mmol/L (135-145)
== END 2024-11-29 10:20 | disposition home or self-care (01) ==
LOC: HO.LAB 10:19
PROVIDERS: PCP Physician Assistant; Visit Provider Nurse Practitioner Family
DX: I10 Essential (primary) hypertension (principal)
CPT/HCPCS: 36415; 80048

== ENCOUNTER 2024-12-12 13:04 | Outpatient (REF) | payer OTHER, SELFPAY ==
[2024-12-12 14:47] LABS: Anion Gap 12 (12-20); Blood Urea Nitrogen 53 mg/dL (9-16); Calcium 9.2 mg/dL (8.4-10.2); Carbon Dioxide 22 mmol/L (22-29); Chloride 109 mmol/L (96-108); Estimated Glomerular Filt Rate 50; Glucose Random 205 mg/dL (60-115); Potassium 5.5 mmol/L (3.3-5.1); Sodium 137 mmol/L (135-145)
--- OUTSIDE RECORDS SUMMARY | 2024-12-12 15:04 | XMS_ITS | Clinical Summary ---
Author Organization [address] [place] [address] Address [address] [place] [address] Phone Care Team Providers Care Rail Car Maintenance Mechanic Name Role Phone Tomy Cannon Primary [...] 9:30 AM EDT Office Visit Orthopedic Surgery [facility] [address] [phone] Costa Blakely DPM Controlled type 2 diabetes mellitus with diabetic polyneuropathy, without long-term current use of insulin ([facility] V24, [facility] V28) (Primary Dx); Onychomycosis; Localized edema; Metatarsalgia of both feet; Midfoot ulceration, right, with fat layer exposed ([facility] V24, [facility] V28) 09/14/2024 9:45 AM EST Office Visit Orthopedic Surgery [facility] [address] [phone] Costa Blakely DPM Controlled type 2 diabetes mellitus with diabetic polyneuropathy, without long-term current use of insulin ([facility] V24, CMS/HCC V28) (Primary Dx); Neuropathy; Onychomycosis; Callus; Localized edema; Metatarsalgia of both feet; Midfoot ulceration, right, with fat layer exposed ([facility] V24, [facility] V28) from Last 3 Months Social History [...] AM EDT Office Visit Orthopedic Surgery - [place] [address] [phone] Costa Blakely, ELIZABETH [address] [address] Health Maintenance Due Date Last Done Comments [...] patient's age to complete this topic Insurance [facility] Care Teams Rail Car Maintenance Mechanic Relationship Specialty Start Date End Date Tomy Cannon PA [address] [place] [phone] PCP - General 03/15/24
== END 2024-12-12 13:05 | disposition home or self-care (01) ==
LOC: HO.LAB 13:04
PROVIDERS: PCP Physician Assistant; Visit Provider Nurse Practitioner Family
DX: I42.0 Dilated cardiomyopathy (principal); I10 Essential (primary) hypertension
CPT/HCPCS: 36415; 80048

== ENCOUNTER 2024-12-18 08:56 | Outpatient (REF) | payer OTHER, SELFPAY ==
--- OUTSIDE RECORDS SUMMARY | 2024-12-18 09:27 | XMS_ITS | Clinical Summary ---
Author Organization [address] [place] [address] Address [address] [place] [address] Phone Care Team Providers Care Harpoon Engagement Planning Operator Name Role Phone Tomy Cannon Primary [...] AM EDT Office Visit Orthopedic Surgery - [place] [address] [facility] [address] [place] [address] Costa Blakely DPM Controlled type 2 diabetes mellitus with diabetic polyneuropathy, without long-term current use of insulin ([facility] V24, CMS/[facility] V28) (Primary Dx); Onychomycosis; Localized edema; Metatarsalgia of both feet; Midfoot ulceration, right, with fat layer exposed (CMS/[facility] V24, CMS/[facility] V28) from Last 3 Months Social History [...] AM EDT Office Visit Orthopedic Surgery - [place] [address] [phone] Costa Blakely DPM [address] [address] Health Maintenance Due Date Last Done Comments [...] patient's age to complete this topic Insurance [facility] Care Teams Harpoon Engagement Planning Operator Relationship Specialty Start Date End Date Tomy Cannon PA [facility] [place] [phone] PCP - General 03/15/24
[2024-12-18 11:05] LABS: Anion Gap 9 (12-20); Blood Urea Nitrogen 37 mg/dL (9-16); Calcium 9.2 mg/dL (8.4-10.2); Carbon Dioxide 25 mmol/L (22-29); Chloride 110 mmol/L (96-108); Estimated Glomerular Filt Rate 59; Glucose Random 212 mg/dL (60-115); Potassium 4.4 mmol/L (3.3-5.1); Sodium 140 mmol/L (135-145)
== END 2024-12-18 08:57 | disposition home or self-care (01) ==
LOC: HO.LAB 08:56
PROVIDERS: PCP Physician Assistant; Visit Provider Nurse Practitioner Family
DX: E87.5 Hyperkalemia (principal)
CPT/HCPCS: 36415; 80048

== ENCOUNTER 2024-12-25 09:26 | Outpatient (AMB) | payer OTHER, SELFPAY ==
--- NOTE | 2024-12-25 09:28 | A.OFFVIS_ITS ---
Vital Signs 12/25/24 09:29 Height 5 ft 10 in Weight 189 lb 9.561 oz BMI 27.2 BP 110/60 Blood Pressure Location Lt brachial Position Sitting Pulse 107 H Pulse Source Pulse Oximeter Intake Visit Reasons: 3 mth f/up Cardiac MRI Allergies metformin Adverse Reaction (Intermediate, Verified 11/07/24 08:54) GI side effects Medication List - Last Reconciled 12/25/24 by Oleg Ritter MD albuterol sulfate 90 mcg/actuation 1 inh inhalation QID PRN 30 days blood-glucose,metal sander,cont (FreeStyle Elaine 3 [place]) As directed blood-glucose sensor (FreeStyle Elaine 3 Sensor device) As directed blood-glucose sensor (FreeStyle Elaine 3 Sensor device) As directed furosemide (Lasix) 40 mg PO DAILY insulin glargine (Lantus Solostar U-100 Insulin) 18 units subcut BEDTIME insulin lispro See Protocol units subcut TIDAC 30 days magnesium oxide 400 mg PO DAILY pen needle, diabetic (BD Lula 2nd Gen Pen Needle) 4 times per day HPI Comments Details: Mark returns for follow-up regarding congestive heart failure. Suspected to have nonischemic cardiomyopathy, possibly related to alcohol excess. The last time he was heavily drinking was about an year ago or so but nothing after that. In the past, he has had stress testing as well which was unremarkable. Longstanding diabetes. No known coronary disease or myocardial infarction. It has been very difficult to keep him on guideline based medical therapy as he gets some combination of orthostatic hypotension, syncope, renal insufficiency and has even required midodrine. Some of the times, blood pressure did go up and we were able to put him at least on brief duration of GDMT. Currently, again off all his medications, except for diuretics. Recently got cardiac MRI. Also saw EP and underwent ICD. In terms of symptoms, he states he feels okay. Shortness of breath is at baseline. [facility] Medical History (Updated 12/25/24 @ 10:21 by Oleg Ritter MD) Cardiomyopathy HTN (hypertension) DMII (diabetes mellitus, type 2) Cardiomyopathy Foot callus Cellulitis of foot Chronic combined systolic and diastolic CHF (congestive heart failure) Palpitation JOLIE (generalized anxiety disorder) MDD (major depressive disorder), recurrent episode, moderate Diabetic foot ulcer Alcohol use disorder in remission CHF (congestive heart failure) Small bowel obstruction Hx of intestinal obstruction Erectile disorder due to medical condition in male patient (~10/17/24) Knee pain, right Surgical History Hx of esophagogastroduodenoscopy History of appendectomy History of hernia surgery Family History Mother Diabetes High blood pressure Social History Household Members: None Household Members Other:: three kids and Housing: House Do you presently have visiting nurse or other home services: No Alcohol intake: never Patient Tobacco Use Status: Never used Tobacco Tobacco use type: Cigarette e-Cigarette/Vaping Use: Never Used Second Hand Smoke Exposure: No Advance Directives Date on File: 12/16/23 service: No Current occupational status: employed Current occupation: right handed Cognitive needs: No Hearing needs: No Vision needs: No Review of Systems Const Denies weakness ENT Denies dizziness Card Denies chest pain, Denies chest pain with activity, Denies syncope, Denies rapid heart rate, Denies pedal edema, Denies edema, Denies leg edema, Denies lightheadedness, Denies palpitations, Denies dyspnea, Denies dyspnea on exertion and Denies orthopnea Resp Denies cough, Denies dyspnea and Denies dyspnea on exertion GI Denies hematochezia and Denies change in stool character Musc Denies abnormal gait, Denies muscle cramps, Denies muscle weakness, Denies numbness, Denies radiating pain into limb and Denies tingling Neuro Denies abnormal gait, Denies dizziness, Denies syncope, Denies numbness, Denies tingling and Denies weakness Endo Denies palpitations Physical Exam Vital Signs: Last Vital Signs Pulse 107 H 12/25/24 09:29 BP 110/60 12/25/24 09:29 BMI result Body Mass Index 27.2 Const General: comfortable and no acute distress Orientation/consciousness: patient oriented x3 HEENT Other: Unremarkable Head: Yes normal to inspection Neck Neck: Yes normal visual inspection Chest Chest palpation & inspection: normal inspection of the chest Resp Auscultation: clear to auscultation bilaterally Cardio Palpation: normal PMI Heart sounds: S1 normal heart sound present, S2 normal heart sound present, no gallops, no murmurs and no rubs GI Palpation (GI): Soft to palpation Back/Spine/Pelvis Other: unremarkable Skin General skin exam: no rashes or lesions noted Neuro General: patient oriented x3 Extrem General: Yes normal to inspection Psych Mental Status: mental status grossly normal Assessment & Plan Assessment & Plan (1) Chronic combined systolic and diastolic CHF (congestive heart failure): Code(s): I50.42 - Chronic combined systolic (congestive) and diastolic (congestive) heart failure Category: Medical (2) Alcohol use disorder in remission: Code(s): F10.91 - Alcohol use, unspecified, in remission Category: Medical (3) DMII (diabetes mellitus, type 2): Comment: A1c 11.7% (08/2023) , 8.1% on 12/2023 Code(s): E11.9 - Type 2 diabetes mellitus without complications Category: Medical Qualifiers: Diabetes mellitus complication status: with hyperglycemia Diabetes mellitus africana studies professor insulin use: without africana studies professor use Qualified Code(s): E11.65 - Type 2 diabetes mellitus with hyperglycemia (4) ICD (implantable cardioverter-defibrillator) in place: Code(s): Z95.810 - Presence of automatic (implantable) cardiac defibrillator Category: Medical Plan Cardiac studies reviewed. Most recent echocardiogram from 08/2024-LVEF EF 20-25%. Prior to that, variable readings at different times. Has been low for a while but somewhat variable. Myocardial perfusion imaging study from 2023-probably normal perfusion. Gated LVEF was 25% during stress and 33% during rest. Holter 03/2024-underlying rhythm is sinus with an average rate of 103/Min. Frequent sinus tachycardia. In the cardiac MRI, LVEF 23%. Mild intramural delayed enhancement in the mid inferolateral wall, suggesting nonischemic dilated cardiomyopathy. RVEF 32%. 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 Overall, nonischemic cardiomyopathy of unknown etiology. Possible alcohol related but not clear. He is only on diuretic at this time as there have been issues with GDMT at different times with orthostatic hypotension, syncope, renal failure and has required Midodrine use. May continue diuretic as currently on clinically euvolemic. He was supposed to see congestive heart failure service at [facility] but has not seen them yet. We will try to look into it. With regard to ICD, we will set up office interrogation and then remote follow- up. With regard to diabetes, less than ideal control. Hemoglobin A1c is 7.8%. He is on insulin. With Jardiance, he had hypotension/syncope in the past. Hence that was stopped. He will call us with ongoing concerns. Follow-up will be arranged. Coding Level of Care Code Est Pt Level 4 (44192) Complex EM visit Add On G2211 Diagnoses Chronic combined systolic and diastolic CHF (congestive heart failure) I50.42 Alcohol use disorder in remission F10.91 Type 2 diabetes mellitus with hyperglycemia, without long-term current use of insulin E11.65 Diabetes mellitus complication status: with hyperglycemia Diabetes mellitus africana studies professor insulin use: without africana studies professor use ICD (implantable cardioverter-defibrillator) in place Z95.810
[2024-12-25 09:29] VITALS: BP 110/60; PULSE 107; BMI 27.2
--- OUTSIDE RECORDS SUMMARY | 2024-12-25 09:37 | XMS_ITS | Clinical Summary ---
Author Organization [address] [place] [address] Address [address] [place] [address] Phone Care Team Providers Care Partner Alliance Manager Name Role Phone Tomy Cannon Primary Care [...] AM EDT Office Visit Orthopedic Surgery - [place] [address] [facility] [address] [place] [address] Costa Blakely DPM Controlled type 2 diabetes mellitus with diabetic polyneuropathy, without long-term current use of insulin ([facility] V24, [facility] V28) (Primary Dx); Onychomycosis; Localized edema; Metatarsalgia of both feet; Midfoot ulceration, right, with fat layer exposed ([facility] V24, CMS/[facility] V28) from Last 3 Months Social History [...] AM EDT Office Visit Orthopedic Surgery - [place] [address] [id number] Costa Blakely DPM [address] [address] Health Maintenance Due Date Last Done Comments [...] patient's age to complete this topic Insurance [facility] Care Teams Partner Alliance Manager Relationship Specialty Start Date End Date Tomy Cannon PA [facility] [place] [address] PCP - General 03/15/24
== END 2024-12-25 10:14 | disposition home or self-care (01) ==
LOC: HO.HCS 09:26
PROVIDERS: PCP Physician Assistant; Visit Provider Internal Medicine
DX: I50.42 Chronic combined systolic (congestive) and diastolic (congestive) heart failure (principal); F10.91 Alcohol use, unspecified, in remission; E11.65 Type 2 diabetes mellitus with hyperglycemia; Z95.810 Presence of automatic (implantable) cardiac defibrillator
CPT/HCPCS: 99214; G2211

== ENCOUNTER → 2024-12-25 09:26 | Outpatient (BNVA) | payer OTHER, SELFPAY | PROVIDERS: PCP Physician Assistant; Visit Provider Internal Medicine | DX: I50.42 Chronic combined systolic (congestive) and diastolic (congestive) heart failure (principal); I42.8 Other cardiomyopathies; F10.91 Alcohol use, unspecified, in remission; E11.65 Type 2 diabetes mellitus with hyperglycemia; Z95.810 Presence of automatic (implantable) cardiac defibrillator | CPT/HCPCS: 99212 ==

== ENCOUNTER 2024-12-28 01:38 | Inpatient (IN) | payer OTHER, SELFPAY ==
[2024-12-28] VITALS (11 sets, daily range): BP systolic 92–141; BP diastolic 65–93; PULSE 93–120; RESP 11–19; TEMP 36.4–37; O2SAT 95–100; BMI 26.3
--- NOTE | 2024-12-28 | ECG_ITS ---
Test Reason : CP Blood Pressure : */* mmHG Vent. Rate : 122 BPM Atrial Rate : 122 BPM P-R Int : 144 ms QRS Dur : 88 ms QT Int : 326 ms P-R-T Axes : 48 -22 75 degrees QTcB Int : 464 ms Sinus tachycardia Nonspecific ST and T wave abnormality Abnormal ECG When compared with ECG of 17-Oct-2024 11:15, Nonspecific T wave abnormality no longer evident in Anterior leads Referred By: Generic ED Physician Electronically Signed By: CATRINA ACEVES MD
--- NOTE | ~2024-12-28 | XR_ITS ---
EXAMINATION: XR CHEST CLINICAL INFORMATION: SOB COMPARISON: 10/17/2024, 08/28/2024. TECHNIQUE: 2 views of the chest were obtained. FINDINGS: Left-sided single-lead AICD device in place with lead extending into the right ventricle. The cardiac, hilar, and mediastinal contours are normal. The lungs are clear bilaterally. There is no pneumothorax or pleural effusion. There is no focal osseous or soft tissue abnormality. XR/XR chest 2V IMPRESSION: No active pulmonary disease. Electronically signed by: Francis Farley MD 12/29/2024 12:19 PM EDT
--- NOTE | ~2024-12-28 | XR_ITS ---
CLINICAL HISTORY: Infected callus, R O osteomyelitis 3 view right foot Comparison: CR - XR FOOT RT MIN 3V - 10/16/24 18:43 EST CR/SR - XR FOOT RT 2V - 06/20/24 11:01 EST MR/SR - MR FOOT LT WO/W CON - 09/13/23 20:55 EST Findings: Progressive soft tissue swelling centered at the 5th metatarsophalangeal joint now with multifocal soft tissue gas compatible with progressive infection. No underlying bone destruction or periostitis to confirm osteomyelitis. Normal mineralization and alignment. Slight degenerative changes in the hallux IP joint. Minor arthrosis distal small joints. Impression: Progressive soft tissue infection now with multifocal soft tissue gas centered at the 5th metatarsophalangeal joint. No underlying bone changes of osteomyelitis. This document has been electronically signed by: Blas Robledo MD on 12/28/2024 06:54:14
--- NOTE | ~2024-12-28 | CT_ITS ---
CLINICAL HISTORY: R/O OSTEO CT right foot with contrast Comparison: X-rays 3 views right foot 12/28/2024 at 5:35 a.m. Findings: There is focal skin defect, soft tissue swelling and fluid adjacent to the 5th metatarsophalangeal joint in the lateral and plantar aspect. No loculated fluid collection. No soft tissue gas. No cortical destruction or periosteal reaction to suggest acute osteomyelitis. No acute fracture. No dislocation. Mild degenerative changes 1st interphalangeal joint and of the medial and lateral malleoli. Minimal calcaneal enthesophytes. Impression: 1. Soft tissue infection adjacent to the 5th metatarsophalangeal joint with soft tissue fluid but no loculated fluid collection at this time. No soft tissue gas. 2. No CT evidence of acute osteomyelitis. This document has been electronically signed by: Janelle Nava MD on 12/29/2024 18:12:20
[2024-12-28 02:02] LABS: MANUAL DIFF FLAG NO
[2024-12-28 02:04] LABS: Basophils Absolute Auto 0.1 X10*3/uL (0.0-0.2); Basophils Percent Auto 0.3 % (0-2); Eosinophils Absolute Auto 0.2 X10*3/uL (0.0-0.4); Eosinophils Percent Auto 1.3 % (0-4); Hematocrit 34.4 % (42.0-52.0); Imm Gran Abs Auto 0.06 X10*3/uL (0.00-0.03); Imm Gran Pct Auto 0.4 % (0.0-0.4); Lymphocytes Absolute Auto 1.4 X10*3/uL (1.2-4.9); Lymphocytes Percent Auto 9.5 % (20-40); Mean Corpuscular HGB Conc 34.9 g/dl (31.0-36.0); Mean Corpuscular Hemoglobin 26.6 pg (27.0-33.0); Mean Corpuscular Volume 76.3 fL (80.0-98.0); Mean Platelet Volume 10.1 fL (9.4-12.4); Monocytes Absolute Auto 0.9 X10*3/uL (0.1-1.2); Monocytes Percent Auto 6.3 % (2-11); Neutrophils Absolute Auto 12.3 x10*3/uL (2.0-8.3); Neutrophils Percent Auto 82.2 % (45-73); Platelet Count 129 X10*3/uL (160-400); Red Blood Count 4.51 X10*6/uL (4.60-5.80); Red Cell Distribution Width 15.6 % (11.0-16.0); White Blood Count 14.9 X10*3/uL (4.8-10.8)
--- NOTE | 2024-12-28 02:19 | ED_ITS ---
HPI - Chest Pain General Chief Complaint: Chest Pain Stated Complaint: CP Time Seen by Provider: 12/28/24 01:58 Source: patient Mode of arrival: ambulatory Limitations: no limitations History of Present Illness ED Provider: DR. Jerez HPI narrative: 44-year-old male PMH significant for HFrEF 20%, nonischemic cardiomyopathy, insulin-dependent T2 DM, HTN, alcohol use disorder in remission, chronic diabetic foot ulcers, presented today for the last 2 days of chest pain and shortness of breath more with exertion, +PND, + bilateral lower extremity edema which is chronic and patient is taking Lasix for it. Patient is also concern of right foot infected callus patient been having severe pain when he bear weight on his right foot. 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 ea 01/04/24 (FreeStyle Elaine 3 [place]) blood-glucose sensor (FreeStyle #1 ea 04/10/24 Elaine 3 Sensor device) albuterol sulfate 90 mcg/actuation 1 inh inhalation QID PRN shortness 07/14/24 aerosol inhaler of breath or wheezing 30 days #8.5 grams pen needle, diabetic 32 gauge x #1,200 ea 09/17/24 (BD Lula 2nd Gen Pen Needle) furosemide 40 mg tablet (Lasix) 40 mg PO DAILY #90 tabs 10/20/24 magnesium oxide 400 mg (241.3 mg 400 mg PO DAILY #90 tabs 10/20/24 magnesium) tablet blood-glucose sensor (FreeStyle #2 ea 10/23/24 Elaine 3 Sensor device) insulin lispro 100 unit/mL See Protocol subcut TIDAC 30 days 12/18/24 subcutaneous pen #15 mL Allergies Allergy/AdvReac Type Severity Reaction Status Date / Time metformin AdvReac Intermediate GI side Verified 12/28/24 01:52 effects Review of Systems 2 Review of Systems: All other systems are reviewed and are negative Constitutional: Reports as per HPI and Reports no additional constitutional complaints Eyes: Reports as per HPI and Reports no additional eye complaints Reports system reviewed and no additional complaints, except as documented Cardiovascular: Reports as per HPI and Reports no additional cardiovascular complaints Respiratory: Reports as per HPI and Reports no additional respiratory complaints Gastrointestinal: Reports as per HPI and Reports no additional gastrointestinal complaints Genitourinary: Reports no additional female genitourinary complaints Musculoskeletal: Reports no additional musculoskeletal complaints Skin/Breast: Reports system reviewed and no additional complaints, except as docu Psychiatric: Reports no additional psychiatric complaints Endocrine: Reports no additional endocrine complaints Hematologic/Lymphatic: Reports no additional hematologic/lymphatic complaints Allergic/Immunologic: Reports no additional allergic/immunologic complaints Reports system reviewed and no additional complaints, except as documented and Reports Abnormal speech present [facility] Past Medical History Medical History Cardiomyopathy HTN (hypertension) DMII (diabetes mellitus, type 2) Cardiomyopathy Foot callus Cellulitis of foot Chronic combined systolic and diastolic CHF (congestive heart failure) Palpitation JOLIE (generalized anxiety disorder) MDD (major depressive disorder), recurrent episode, moderate Diabetic foot ulcer Alcohol use disorder in remission CHF (congestive heart failure) Small bowel obstruction Hx of intestinal obstruction Erectile disorder due to medical condition in male patient (~10/17/24) Knee pain, right Surgical History Hx of esophagogastroduodenoscopy History of appendectomy History of hernia surgery Family History Family History Mother Diabetes High blood pressure Social History Social History Household Members: None Household Members Other:: three kids and Housing: House Do you presently have visiting nurse or other home services: No Alcohol intake: never Patient Tobacco Use Status: Never used Tobacco Tobacco use type: Cigarette Smoked in Last 30 Days: No e-Cigarette/Vaping Use: Never Used Second Hand Smoke Exposure: No Use of substances other than those prescribed or required for medical reasons: No Advance Directives: Yes Advance Directives on File: Yes Advance Directives Date on File: 12/16/23 service: No Current occupational status: employed Current occupation: right handed Cognitive needs: No Hearing needs: No Vision needs: No Physical Exam 2 Vital Signs: Vital Signs: Last Vital Signs Temp 98.6 F 12/28/24 06:35 Pulse 100 12/28/24 06:35 Resp 18 12/28/24 06:35 BP 141/93 H 12/28/24 06:35 Pulse Ox 99 12/28/24 06:35 O2 Del Method Room Air 12/28/24 06:35 BMI result Body Mass Index 26.3 Vital signs have been reviewed and appear to be correct. Blood pressure elevated. Heart rate elevated. Respiratory rate normal. Temperature normal. Oxygen saturation normal. Appearance: Alert. Oriented X3. No acute distress. Head: Normal external exam. Normocephalic. Atraumatic. No Bauman signs noted. No raccoon eyes noted Eyes: PERRLA. EOMI. Conjunctiva and sclera normal. Eyelids normal. ENT: TM's Normal. Pharynx normal. Uvula midline. Moist mucous membranes. No trismus noted. No drooling noted. No muffled voice noted. Neck: Normal inspection. Neck supple. FROM. No adenopathy. Thyroid Normal. No meningeal signs. No neck mass noted. CVS: Normal heart rate and rhythm. Heart sound normal. No murmurs noted. Pulses normal throughout. Respiratory: No respiratory distress. Painless inspiration. Breath sounds normal. No wheezes/rales/rhonchi noted. Chest nontender. No accessory muscle usage noted or decreased air movement noted. Abdomen: Soft and nontender. Bowel sounds normal in all 4 quadrants. No distention noted. No organomegaly noted. No visible injury noted. Back: No CVA tenderness. Full range of motion noted. Skin: Skin warm and dry. Normal skin color. Normal skin turgor. No rashes/lesions/lacerations noted. Extremities: Right foot: +PT/DP, infected callus at the base of the 5th right toe with tenderness to touch. No deformity no step-off. Neuro: Oriented X 3. Cranial nerve exam: II-XII are grossly intact No motor deficit. No sensory deficit. Reflexes normal. Course Reevaluation(s) Reevaluation #1: Chronic chest pain, troponin is negative x2, no ST-elevation on EKG. Infected callus in the right foot no osteomyelitis, patient meet sepsis criteria while administer antibiotic/IV fluids. Time: 05:18 Medications Administered Generic Name Dose Route Start Last Admin Trade Name Freq PRN Reason Stop Dose Admin Lactated Ringer's 1,000 mls @ 500 mls/hr 12/28/24 05:15 12/28/24 06:01 Lr IV 12/28/24 07:14 500 mls/hr .Q2H JIMENEZ Administration Vancomycin HCl 2,000 mg in 500 mls @ 250 mls/hr 12/28/24 06:15 12/28/24 06:35 Vancomycin/Ns IV 12/28/24 08:14 250 mls/hr ONCE ONE Administration Discontinued Medications Generic Name Dose Route Start Last Admin Trade Name Freq PRN Reason Stop Dose Admin Acetaminophen 975 mg 12/28/24 04:56 12/28/24 05:01 Acetaminophen 325 Mg Tablet PO 12/28/24 04:57 975 mg ONCE ONE Administration Piperacillin Sod/Tazobactam 100 mls @ 200 mls/hr 12/28/24 05:14 12/28/24 06:33 Sod 4.5 gm/ Sodium Chloride IV 12/28/24 05:43 Infused ONCE ONE Infusion Medical Decision Making Differential Diagnosis Differential Diagnoses: The differential diagnosis associated with the presentation includes (ACS, CHF, pneumonia, pneumothorax, pleural effusion, cellulitis of right foot, osteomyelitis of right foot.) Admission/Observation Consideration of admission/observation: Escalation of care including admission/observation considered Consult Healthcare Provider Management of the patient was discussed with: Hospitalist (Dr. Krishnamurthy) Lab Data MDM Lab Attestation statement: I reviewed the patient's lab results. 12/28/24 01:57 12/28/24 01:57 Labs: Lab Results 12/28/24 12/28/24 Range/Units 01:57 05:03 WBC 14.9 H (4.8-10.8) X10*3/uL RBC 4.51 L (4.60-5.80) X10*6/uL Hgb 12.0 L (14.0-18.0) g/dl Hct 34.4 L (42.0-52.0) % MCV 76.3 L (80.0-98.0) fL MCH 26.6 L (27.0-33.0) pg MCHC 34.9 (31.0-36.0) g/dl RDW 15.6 (11.0-16.0) % Plt Count 129 L D (160-400) X10*3/uL MPV 10.1 (9.4-12.4) fL Immature Gran % (Auto) 0.4 (0.0-0.4) % Neut % (Auto) 82.2 H (45-73) % Lymph % (Auto) 9.5 L (20-40) % [place] % (Auto) 6.3 (2-11) % Eos % (Auto) 1.3 (0-4) % Baso % (Auto) 0.3 (0-2) % Lymph # (Auto) 1.4 (1.2-4.9) X10*3/uL [place] # (Auto) 0.9 (0.1-1.2) X10*3/uL Eos # (Auto) 0.2 (0.0-0.4) X10*3/uL Baso # (Auto) 0.1 (0.0-0.2) X10*3/uL Abs Immat Gran (auto) 0.06 H (0.00-0.03) X10*3/uL Absolute Neuts (auto) 12.3 H (2.0-8.3) x10*3/uL Absolute Nucleated RBC 0.000 (0.0-0.012) X10*3/uL Nucleated RBC % (auto) 0.0 (0.0-0.2) /100WBC Sodium 138 (135-145) mmol/L Potassium 3.8 (3.3-5.1) mmol/L Chloride 100 (96-108) mmol/L Carbon Dioxide 27 (22-29) mmol/L Anion Gap 15 (12-20) BUN 38 H (9-16) mg/dL Creatinine 1.65 H (0.5-1.4) mg/dL Estim Creat Clear Calc 60.2 Estimated GFR 46 Fasting Glucose 256 H (60-99) mg/dL Calcium 8.9 (8.4-10.2) mg/dL Total Bilirubin 0.7 (0.0-1.0) mg/dL AST 30 (5-37) U/L ALT 18 (0-40) U/L Alkaline Phosphatase 99 (39-117) U/L Troponin I High Sens 8.7 D 6.9 (<3.5-35.0) ng/L B-Natriuretic Peptide 50 (<100) pg/mL Total Protein 7.7 (6.5-8.0) g/dL Albumin 3.5 (3.5-5.0) g/dL Influenza Type A (PCR) NEGATIVE (Negative) Influenza Type B (PCR) NEGATIVE (Negative) RSV RNA Qual (PCR) NEGATIVE (Negative) SARS-CoV-2 RNA (RT-PCR) NEGATIVE (Negative) Independent Interpretation I performed an independent interpretation of an: Plain X-Ray (Left foot:Progressive soft tissue infection now with multifocal soft tissue gas centered at the 5th metatarsophalangeal joint. No underlying bone changes of osteomyelitis.) Radiology Impression Discussion of test interpretation with radiology: I have reviewed the radiologist's reading. Discharge Plan Discharge Clinical Impression: Cellulitis of foot, right, Chest pain Patient Disposition: Admitted As Inpatient
[2024-12-28 02:29] LABS: Troponin-I High Sensitivity 8.7 ng/L (<3.5-35.0)
[2024-12-28 02:40] LABS: Influenza A PCR NEGATIVE (Negative); Influenza B PCR NEGATIVE (Negative); Resp Syncy Virus RNA Qual PCR NEGATIVE (Negative); SARS COV2 PCR INHOUSE NEGATIVE (Negative)
[2024-12-28 02:42] LABS: Alanine Aminotransferase 18 U/L (0-40); Albumin Level 3.5 g/dL (3.5-5.0); Alkaline Phosphatase 99 U/L (39-117); Anion Gap 15 (12-20); Aspartate Amino Transferase 30 U/L (5-37); Bilirubin Total 0.7 mg/dL (0.0-1.0); Blood Urea Nitrogen 38 mg/dL (9-16); Calcium 8.9 mg/dL (8.4-10.2); Carbon Dioxide 27 mmol/L (22-29); Chloride 100 mmol/L (96-108); Creatinine Clr Calc Pharmacy 60.2; Estimated Glomerular Filt Rate 46; Glucose Fasting 256 mg/dL (60-99); Potassium 3.8 mmol/L (3.3-5.1); Sodium 138 mmol/L (135-145); Total Protein 7.7 g/dL (6.5-8.0)
[2024-12-28 03:17] LABS: B Type Natriuretic Peptide 50 pg/mL (<100)
[2024-12-28] MEDS: Acetaminophen 325 MG TABLET 975 MG PO (05:01)
[2024-12-28 05:26] LABS: Troponin-I High Sensitivity 6.9 ng/L (<3.5-35.0)
--- NOTE | 2024-12-28 05:55 | P.HPHOSP_ITS ---
History of Present Illness Date of Service: 12/28/24 Chief Complaint: Foot pain and chest pain This is a 44-year-old male with pertinent history of combined chronic systolic and diastolic congestive heart failure (EF 20-25%) status post ICD, insulin- dependent type 2 diabetes mellitus, hypertension, alcohol use disorder in remission, nonhealing diabetic foot ulcer who presents to the emergency department for evaluation of chest pain and foot pain. Patient has multiple complaints at the time of my evaluation. States he started having right foot pain which is worse with walking that he noticed a couple of days prior to presentation. He also noticed redness and warmth around nonhealing diabetic foot ulcer. Patient is concerned that he has an infection due to the pain. He is also complaining of midsternal chest pain that is intermittent, nonradiating that started 2 weeks prior to presentation. It is not relieved with rest and is not exacerbated with exertion. He did not try nitroglycerin. Patient also states that he got dizzy and lightheaded when he tried to stand up on the day of presentation. No fever, chills, shortness of breath, orthopnea, abdominal pain, changes in urinary or bowel habits. In the emergency department, patient was found to be septic with leukocytosis 14.9 and elevated heart rate. He was initiated on empiric IV antibiotics. Review of Systems 2 ENT: Reports dizziness Cardiovascular: Cardiovascular: Reports chest pain Gastrointestinal: Gastrointestinal: Reports no additional gastrointestinal complaints Genitourinary: Genitourinary: Reports no additional male genitourinary complaints Musculoskeletal: Comments: right foot pain Neurologic: Reports dizziness Psychiatric: Psychiatric: Reports anxiety [facility] Medical History Cardiomyopathy HTN (hypertension) DMII (diabetes mellitus, type 2) Cardiomyopathy Foot callus Cellulitis of foot Chronic combined systolic and diastolic CHF (congestive heart failure) Palpitation JOLIE (generalized anxiety disorder) MDD (major depressive disorder), recurrent episode, moderate Diabetic foot ulcer Alcohol use disorder in remission CHF (congestive heart failure) Small bowel obstruction Hx of intestinal obstruction Erectile disorder due to medical condition in male patient (~10/17/24) Knee pain, right Family History Mother Diabetes High blood pressure Surgical History Hx of esophagogastroduodenoscopy History of appendectomy History of hernia surgery Social History Household Members: None Household Members Other:: three kids and Housing: House Do you presently have visiting nurse or other home services: No Alcohol intake: never Patient Tobacco Use Status: Never used Tobacco Tobacco use type: Cigarette Smoked in Last 30 Days: No e-Cigarette/Vaping Use: Never Used Second Hand Smoke Exposure: No Use of substances other than those prescribed or required for medical reasons: No Advance Directives: Yes Advance Directives on File: Yes Advance Directives Date on File: 12/16/23 service: No Current occupational status: employed Current occupation: right handed Cognitive needs: No Hearing needs: No Vision needs: No Meds Allergies Allergy/AdvReac Type Severity Reaction Status Date / Time metformin AdvReac Intermediate GI side Verified 12/28/24 01:52 effects Active Medications: Current Medications Lactated Ringer's (Lr) 1,000 mls @ 500 mls/hr IV .Q2H JIMENEZ Stop: 12/28/24 07:14 Home Medications ?Medication ?Instructions ?Recorded ?Confirmed ?Last Taken ?Type insulin glargine 100 unit/mL (3 18 unit subcut BEDTIME 10/17/24 12/25/24 Unknown History mL) subcutaneous pen (Lantus Solostar U-100 Insulin) Physical Exam 2 Vital Signs and Narrative: Vital Signs: Last Vital Signs Temp 98.0 F 12/28/24 04:00 Pulse 111 H 12/28/24 04:00 Resp 13 12/28/24 04:00 BP 125/78 12/28/24 04:00 Pulse Ox 96 12/28/24 04:00 O2 Del Method Room Air 12/28/24 04:00 BMI result Body Mass Index 26.3 Middle-aged male lying in bed in no distress Neck supple, no JVD Regular rate and rhythm, S1-S2 heard Regular breath sounds bilaterally, no wheezing or crackles appreciated Abdomen soft nontender, no guarding, no rigidity Patient is awake, alert and oriented to self, place, time and person ; no focal motor deficit Psych: Anxious Area of surrounding erythema, warmth, tenderness around nonhealing diabetic foot ulcer Results Labs 12/28/24 01:57 12/28/24 01:57 Labs: Laboratory Results - last 24 hr 12/28/24 01:57 MCV 76.3 L MCH 26.6 L MCHC 34.9 RDW 15.6 Plt Count 129 L D MPV 10.1 Immature Gran % (Auto) 0.4 Neut % (Auto) 82.2 H Lymph % (Auto) 9.5 L Hemphill % (Auto) 6.3 Eos % (Auto) 1.3 Baso % (Auto) 0.3 Lymph # (Auto) 1.4 Hemphill # (Auto) 0.9 Eos # (Auto) 0.2 Baso # (Auto) 0.1 Abs Immat Gran (auto) 0.06 H Absolute Neuts (auto) 12.3 H Absolute Nucleated RBC 0.000 Nucleated RBC % (auto) 0.0 Anion Gap 15 Estim Creat Clear Calc 60.2 Estimated GFR 46 Fasting Glucose 256 H Calcium 8.9 Total Bilirubin 0.7 AST 30 ALT 18 Alkaline Phosphatase 99 B-Natriuretic Peptide 50 Total Protein 7.7 Albumin 3.5 Influenza Type A (PCR) NEGATIVE Influenza Type B (PCR) NEGATIVE RSV RNA Qual (PCR) NEGATIVE SARS-CoV-2 RNA (RT-PCR) NEGATIVE Assessment and Plan (1) Cellulitis of foot, right: Status: Acute (2) Chest pain: Status: Acute Plan This is a 44-year-old male with pertinent history of combined chronic systolic and diastolic congestive heart failure (EF 20-25%) status post ICD, insulin- dependent type 2 diabetes mellitus, hypertension, alcohol use disorder in remission, nonhealing diabetic foot ulcer who presents to the emergency department for evaluation of chest pain and foot pain. #. Sepsis due to right foot cellulitis in a patient with chronic diabetic foot ulcer: Resuscitated with IV crystalloids. Initiating IV vancomycin and IV cefepime. Previous wound culture with staph aureus and Enterobacter. Foot x- ray pending. Wound care consult. #. Orthostatic presyncope in the setting of diabetic autonomic dysfunction: Given IV crystalloids in the ER. Repeat orthostatics in a.m. #. Chest pain, atypical: Trend troponin. Likely underlying anxiety contributing. #. Combined systolic and diastolic congestive heart failure status post ICD: No decompensation during admission. On home Lasix, spironolactone, carvedilol and Entresto. May need to titrate based on orthostatic vital signs #. Insulin-dependent diabetes mellitus with hyperglycemia: Initiating Accu- Cheks with sliding scale insulin before meals and at bedtime. Reduce home basal insulin once med rec is complete Med rec pending DVT prophylaxis: Lovenox Full code Admit as inpatient and will require two night minimum hospital stay for IV antibiotics (as above), which is not possible in a lesser acute setting. Quality Stroke Does the patient have a stroke diagnosis?: No VTE Prior VTE?: No VTE Risk Level:: Medical - moderate - high VTE Device Contraindication: Treatment Not Indicated VTE Drug Contraindication: N/A - Med Ordered
[2024-12-28] MEDS: Lactated Ringers 1,000 ML 500 ML IV (06:01)
[2024-12-28] MEDS: Piperacillin Sodium/Tazobactam 4.5 GM in 0.9 % Sodium Chloride 100 ML IV (06:01)
[2024-12-28 06:26] LABS: Lactic Acid 1.3 mmol/L (0.5-2.0)
[2024-12-28] MEDS: vancomycin/NS 2,000 MG/500 ML PLAST..BAG 250 MG IV (06:35)
--- NOTE | 2024-12-28 07:02 | PHA.PROG ---
Admission Date/Time: December 28, 2024 05:35 Indication: Sepsis Weight in k.007 kg Adjusted body weight in Kg: Independence body weight in Kg: Obesity Dosing Indication % IBW: Serum Creatinine - Last 168 Hours 12/28/24 01:57 Creatinine 1.65 H Estimated CrCl and GFR - Last 168 Hours 12/28/24 01:57 Estim Creat Clear Calc 60.2 Estimated GFR 46 Vancomycin Loading Dose:2000mg Current Vancomycin Dosing Regimen: 750mg q12h Vancomycin Monitoring using AUC goal of 400 - 600 range with trough as surrogate marker: 480 mg/L Date and Time for next Vancomycin Level to be drawn: 12/29/24 @1700 Pharmacist Comments on Vancomycin Plan: Vancomycin dosing will take advantage of [employer] as a clinical decision support tool that uses Bayesian modeling to calculate individual patient's pharmacokinetic parameters and forecast the patient's drug concentration time course with the target goal AUC 24 range of 400 - 600 mg/L/hr.
[2024-12-28 07:36] LABS: Glucose, Whole Blood 235 mg/dL (60-115)
[2024-12-28] MEDS: Insulin Lispro 100 UNIT/ML 3 ML VIAL SUBCUT ×4 (07:36→20:34)
[2024-12-28] MEDS: 0.9 % Sodium Chloride Flush 3 ML SYRINGE IVFLUSH (07:37)
[2024-12-28 08:57] LABS: Troponin-I High Sensitivity 7.6 ng/L (<3.5-35.0)
--- NOTE | 2024-12-28 09:05 | PHA.MEDREC ---
Pharmacy Consult ? Medication Reconciliation Pharmacy has completed the medication reconciliation. Patient says 3 weeks ago stopped taking entresto, spironolactone, and carvedilol
[2024-12-28] MEDS: Enoxaparin Sodium 40 MG/0.4 ML SYRINGE SUBCUT (09:34)
--- NOTE | 2024-12-28 11:12 | MHC.CM.PN ---
Pt. lives alone, PCP is confirmed: Tomy Cannon, HCP is on file and confirmed: [place]. He does not have home health services. Following last adm he had services from [facility], they are fine with him if needed after this stay. He has his care here for transport home at [place]. DCP: home with services, CM to follow for [place] needs.
[2024-12-28 12:06] LABS: Glucose, Whole Blood 241 mg/dL (60-115)
[2024-12-28] MEDS: cefEPime HCl/D5W 2 GM/50 ML PIGGYBACK IV ×2 (12:24→19:16)
[2024-12-28] MEDS: Morphine Sulfate 2 MG/ML CARTRIDGE IVPUSH (12:28)
--- NOTE | 2024-12-28 12:41 | PM.CNGS ---
History of Present Illness Consult details Consult date: 12/28/24 <Jackelyn Blancas PA-C - Last Filed: 12/28/24 13:28> Requesting physician: Kemal Hu <ARMIN Martinez Last Filed: 12/28/24 13:28> Narrative: 44-year-old male with PMH of CHF (EF 20-25%) status post ICD, insulin-dependent type 2 diabetes mellitus, hypertension, nonhealing diabetic foot ulcer of right foot who presented to the ED with complaints of right foot pain and pain with ambulation. He states this began yesterday. Denies trauma or injury to the foot. Also noted redness and swelling of the area. He denies fevers, chills, nausea, vomiting. He had an ICD placed last week. He has had multiple admissions for the nonhealing wound, last admitted to [facility] in October 2024 for right foot cellulitis and required debridement as well. Bone scan was performed and osteomyelitis was considered unlikely. He was treated with IV and oral abx upon discharge. He has been having VNA services at home who cleanse the wound but do not put a dressing on it. Work up in the ED included CBC, BMP which was significant for leukocytosis 14.9. Right foot xray showed soft tissue infection now with soft tissue gas centered at the 5th metatarsophalangeal joint, no underlying bone changes of osteomyelitis. He was admitted to the hospitalist service for further treatment of sepsis, right foot cellulitis. He is on IV cefepime. General surgery consult was obtained for the foot wound. <Jackelyn Blancas PA-C - Last Filed: 12/28/24 13:28> Review of Systems Constitutional: Constitutional: Denies chills and Denies fever(s) <ARMIN Martinez Last Filed: 12/28/24 13:28> Cardiovascular: Cardiovascular: Denies dyspnea <ARMIN Martinez Last Filed: 12/28/24 13:28> Respiratory: Respiratory: Denies dyspnea <ARMIN Martinez Last Filed: 12/28/24 13:28> Gastrointestinal: Gastrointestinal: Denies nausea and Denies vomiting <ARMIN Martinez Filed: 12/28/24 13:28> Musculoskeletal: Musculoskeletal: Reports as per HPI <ARMIN Martinez Last Filed: 12/28/24 13:28> Integumentary/Breasts: Skin/Breast: Reports as per HPI <Jackelyn Blancas PA-C - Last Filed: 12/28/24 13:28> [facility] Past Medical History Medical History: Medical History Cardiomyopathy HTN (hypertension) DMII (diabetes mellitus, type 2) Cardiomyopathy Foot callus Cellulitis of foot Chronic combined systolic and diastolic CHF (congestive heart failure) Palpitation JOLIE (generalized anxiety disorder) MDD (major depressive disorder), recurrent episode, moderate Diabetic foot ulcer Alcohol use disorder in remission CHF (congestive heart failure) Small bowel obstruction Hx of intestinal obstruction Erectile disorder due to medical condition in male patient (~10/17/24) Knee pain, right <Jackelyn Blancas PA-C - Last Filed: 12/28/24 13:28> Family History Family History: Family History Mother Diabetes High blood pressure <Jackelyn Blancas PA-C Last Filed: 12/28/24 13:28> Surgical History Surgical History: Surgical History Hx of esophagogastroduodenoscopy History of appendectomy History of hernia surgery <Jackelyn Blancas PA-C - Last Filed: 12/28/24 13:28> Social History Social History: Social History Household Members: None Household Members Other:: three kids and Housing: House Do you presently have visiting nurse or other home services: No Alcohol intake: never Patient Tobacco Use Status: Never used Tobacco Tobacco use type: Cigarette Smoked in Last 30 Days: No e-Cigarette/Vaping Use: Never Used Second Hand Smoke Exposure: No Use of substances other than those prescribed or required for medical reasons: No Advance Directives: Yes Advance Directives on File: Yes Advance Directives Date on File: 12/16/23 service: No Current occupational status: employed Current occupation: right handed Cognitive needs: No Hearing needs: No Vision needs: No <Jackelyn Blancas PA-C - Last Filed: 12/28/24 13:28> Meds Allergies/Adverse reactions: Allergies Allergy/AdvReac Type Severity Reaction Status Date / Time metformin AdvReac Intermediate GI side Verified 12/28/24 01:52 effects <Jackelyn Blancas PA-C - Last Filed: 12/28/24 13:28> Active Medications: Current Medications Acetaminophen (Acetaminophen 325 Mg Tablet) 650 mg PO Q6H PRN PRN Reason: Pain, Mild 1-3,fever,headache Albuterol Sulfate (Albuterol Sulfate 90 Mcg 8 Gm Inhaler) 1 puff INHALE QID PRN PRN Reason: shortness of breath or wheezing Calcium Carbonate (Calcium Carbonate 750 Mg Tab.Chew) 750 mg PO Q4H PRN PRN Reason: Heartburn Dextrose (Dextrose 50 % 25 Gm/50 Ml Syringe) 25 gm IVPUSH Q15M PRN; Protocol PRN Reason: per Hypoglycemia Standing Ord. Enoxaparin Sodium (Enoxaparin Sodium 40 Mg/0.4 Ml Syringe) 40 mg SUBCUT Q24H [facility] Last Admin: 12/28/24 09:34 Dose: 40 mg Furosemide (Furosemide 40 Mg Tablet) 40 mg PO DAILY JIMENEZ; Protocol Glucose (Glucose Gel 15 Gm Gel..Gram.) 15 gm PO Q15M PRN; Protocol PRN Reason: per Hypoglycemia Standing Ord. Cefepime HCl (Maxipime) 2 gm in 50 mls @ 100 mls/hr IV Q8H [facility] Last Admin: 12/28/24 12:24 Dose: 100 mls/hr Insulin Glargine (Insulin Glargine,Hum.Rec.Anlog 100 Unit/Ml 10 Ml Vial) 15 unit SUBCUT BEDTIME JIMENEZ Insulin Human Lispro (Insulin Lispro 100 Unit/Ml 3 Ml Vial) 0 unit SUBCUT QIDACHS [facility]; Protocol Last Admin: 12/28/24 12:23 Dose: 4 unit Magnesium Hydroxide (Milk Of Magnesia 30 Ml Oral.Susp) 30 ml PO DAILY PRN PRN Reason: Constipation Melatonin (Melatonin 3 Mg Tablet) 6 mg PO BEDTIME PRN PRN Reason: Insomnia Ondansetron HCl (Ondansetron Hcl 4 Mg/2 Ml Vial) 4 mg IVPUSH Q8H PRN PRN Reason: Nausea and Vomiting Pharmacy Consult (Consult Rx Vancomycin Dosing) 1 each MISCELLANE DAILY PRN PRN Reason: Consult order Sodium Chloride (0.9 % Sodium Chloride Flush 3 Ml Syringe) [facility] Last Admin: 12/28/24 07:37 Dose: 3 ml <ARMIN Martinez Last Filed: 12/28/24 13:28> Home medications: Home Medications ?Medication ?Instructions ?Recorded ?Confirmed ?Last Taken ?Type insulin glargine 100 unit/mL (3 18 unit subcut BEDTIME 10/17/24 12/28/24 12/27/24 History mL) subcutaneous pen (Lantus Solostar U-100 Insulin) insulin lispro 100 unit/mL 10 unit subcut TIDAC 12/28/24 12/28/24 12/27/24 History subcutaneous pen <ARMIN Martinez Last Filed: 12/28/24 13:28> Physical Exam Vital Signs: Vital Signs: Last Vital Signs Temp 97.9 F 12/28/24 09:18 Pulse 113 H 12/28/24 09:22 Resp 16 12/28/24 09:18 BP 92/65 12/28/24 09:22 Pulse Ox 97 12/28/24 09:18 O2 Del Method Room Air 12/28/24 09:18 BMI result Body Mass Index 26.3 <ARMIN Martinez Last Filed: 12/28/24 13:28> Const: General: comfortable, no acute distress and alert <ARMIN Martinez Last Filed: 12/28/24 13:28> Orientation/consciousness: patient oriented x3 <ARMIN Martinez Last Filed: 12/28/24 13:28> Resp: Effort & Inspection: normal respiratory effort <ARMIN Martinez Last Filed: 12/28/24 13:28> Neuro: General: patient oriented x3 and moves all extremities <ARMIN Martinez Last Filed: 12/28/24 13:28> Extrem: Other: right foot- callus and small open wound at lateral dorsal aspect of forefoot at fifth MTP with fluctuance surrounding the wound distally extending posteriorly <Jackelyn Blancas PA-C - Last Filed: 12/28/24 13:28> Results Labs Result diagrams: 12/28/24 01:57 12/28/24 01:57 <Jackelyn Blancas PA-C - Last Filed: 12/28/24 13:28> Labs: Abnormal lab results 12/28/24 12/28/24 12/28/24 Range/Units 01:57 07:32 11:56 WBC 14.9 H (4.8-10.8) X10*3/uL RBC 4.51 L (4.60-5.80) X10*6/uL Hgb 12.0 L (14.0-18.0) g/dl Hct 34.4 L (42.0-52.0) % MCV 76.3 L (80.0-98.0) fL MCH 26.6 L (27.0-33.0) pg Plt Count 129 L D (160-400) X10*3/uL Neut % (Auto) 82.2 H (45-73) % Lymph % (Auto) 9.5 L (20-40) % Abs Immat Gran (auto) 0.06 H (0.00-0.03) X10*3/uL Absolute Neuts (auto) 12.3 H (2.0-8.3) x10*3/uL BUN 38 H (9-16) mg/dL Creatinine 1.65 H (0.5-1.4) mg/dL POC Glucose 235 H 241 H (60-115) mg/dL Fasting Glucose 256 H (60-99) mg/dL Short CBC 12/28/24 Range/Units 01:57 WBC 14.9 H (4.8-10.8) X10*3/uL Hgb 12.0 L (14.0-18.0) g/dl Hct 34.4 L (42.0-52.0) % Plt Count 129 L D (160-400) X10*3/uL BMP 12/28/24 01:57 Sodium 138 Potassium 3.8 Chloride 100 Carbon Dioxide 27 BUN 38 H Creatinine 1.65 H Calcium 8.9 Liver Function 12/28/24 Range/Units 01:57 Total Bilirubin 0.7 (0.0-1.0) mg/dL AST 30 (5-37) U/L ALT 18 (0-40) U/L Alkaline Phosphatase 99 (39-117) U/L Albumin 3.5 (3.5-5.0) g/dL All other labs normal. <Jackelyn Blancas PA-C - Last Filed: 12/28/24 13:28> Assessment and Plan (1) Cellulitis of foot, right: Status: Acute <Jackelyn Blancas PA-C - Last Filed: 12/28/24 13:28> He is well known to me Diabetic, with CHF, with area of recurrent cellulitis and fluctuance in the lateral aspect of the forefoot on the right Currently has this boggy, fluctuant area with note of thick callus Sharp excisional debridement was done at bedside Full-thickness of the skin and part of subcutaneous tissue removed Silver alginate dressings applied and foot wrapped with a Kerlix He tolerated the procedure well We will need good wound care Blood sugar control Rule out osteomyelitis Seen and examined independently -I was present during the debridement at bedside <Matt Bettencourt MD - Last Filed: 12/28/24 14:04> 44-year-old male with PMH of CHF (EF 20-25%) status post ICD, insulin-dependent type 2 diabetes mellitus, hypertension, nonhealing diabetic foot ulcer of right foot presenting with aute onset right foot pain and pain with ambulation admitted for right foot cellulitis. Fluctuant area was palpated around at the ulcer and callus of lateral/dorsal aspect which was opened up with expression of thin purulence and sharp excisional debridement was performed (see procedure note). Culture obtained. He is clinically appearing well, no evidence of necrotizing fasciitis. Silver alginate placed to wound base followed by fluffs and kerlix wrap. Cont IV abx, right foot elevation, good POC control and good local wound care. Recommend further imaging to r/o osteomyelitis given the repeated infections. <Jackelyn Blancas PA-C - Last Filed: 12/28/24 13:28> Procedures Date of Service Date of Service: 12/28/24 <Jackelyn Blancas PA-C - Last Filed: 12/28/24 13:28> 12/28/24 <Matt Bettencourt MD - Last Filed: 12/28/24 14:04> Procedure Note Procedure Note: After assuring informed consent, the skin was prepped with Betadine. The fluctuant area was sharply dissected with scissors. Thin purulent drainage was evacuated. A culture was obtained. The collection was probed and it extended posteriorly. This area was unroofed and sharp excisional debridement of the collection area full thickness tissue into subcutaneous tissue was performed with scissors measuring 3cm. The callus was also sharply debrided measuring 2cm x 2cm. The patient tolerated the procedure very well. Wound dressed with silver alginate to wound bed followed by fluffs, kerlix wrap. <Jackelyn Blancas PA-C - Last Filed: 12/28/24 13:28>
--- NOTE | 2024-12-28 16:27 | PC.NURSE ---
Pt coming in from home complaining of chest pain as well as worsening redness and pain to chronic diabetic foot wound. pt's chest pain work up was negative but foot wound does appear to becoming infected and pt's initial presentation met criteria for sepsis. treated empirically with antibiotics. IV abt continued in orders. dr craven saw pt in ED and drained wound, culture swab sent. ambulatory short distances but it causes pain, he has been using the urinal. 20g in L AC. POC with meals, coverage given, pt's blood sugars have been over 200. he is alert, oriented, omani speaking, very pleasant.
[2024-12-28 17:38] LABS: Glucose, Whole Blood 193 mg/dL (60-115)
[2024-12-28] MEDS: Acetaminophen 325 MG TABLET 650 MG PO (19:16)
[2024-12-28] MEDS: Insulin Glargine,Hum.rec.anlog 100 UNIT/ML 10 ML VIAL 15 UNIT SUBCUT (20:34)
[2024-12-28 20:42] LABS: Glucose, Whole Blood 221 mg/dL (60-115)
--- NOTE | 2024-12-28 22:21 | PC.NURSE ---
Pt changed over onto hospital bed. Pt medicated per MAR for headache with some improvement in pain. Callbell in reach.
[2024-12-29] VITALS (11 sets, daily range): BP systolic 106–160; BP diastolic 84–106; PULSE 91–110; RESP 13–20; TEMP 36–37.1; O2SAT 97–100; BMI 27.3
[2024-12-29] MEDS: cefEPime HCl/D5W 2 GM/50 ML PIGGYBACK IV ×3 (04:00→20:33)
[2024-12-29] MEDS: traMADoL HCL 50 MG TABLET PO (04:16)
--- NOTE | 2024-12-29 04:24 | PC.NURSE ---
Pt c/o headache, provider notified and order obtained for tramadol. Medication administered per OCT.
[2024-12-29 07:52] LABS: Glucose, Whole Blood 159 mg/dL (60-115)
[2024-12-29] MEDS: Insulin Lispro 100 UNIT/ML 3 ML VIAL SUBCUT ×3 (07:55→20:32)
--- NOTE | 2024-12-29 08:43 | P.PNGS_ITS ---
Subjective Subjective Date of Service: 12/29/24 Interval history: New complaints No events reported overnight Describes some pain on the right Physical Exam 2 Vital Signs: Vital Signs: Last Vital Signs Temp 97.4 F 12/29/24 08:00 Pulse 91 12/29/24 08:00 Resp 16 12/29/24 08:00 BP 151/87 H 12/29/24 08:00 Pulse Ox 98 12/29/24 08:00 O2 Del Method Room Air 12/29/24 08:00 BMI result Body Mass Index 27.3 Const: General: comfortable and no acute distress Resp: Effort & Inspection: normal respiratory effort Cardio: Rate: regular rate GI: Palpation (GI): Soft to palpation Extrem: Other: Open wound, lateral aspect of the right foot from the debridement site clean, gangrenous tissue, no significant cellulitis currently Objective Data Active Medications Acetaminophen (Acetaminophen 325 Mg Tablet) 650 mg PO Q6H PRN PRN Reason: Pain, Mild 1-3,fever,headache Last Admin: 12/28/24 19:16 Dose: 650 mg Documented By: CHRISTIANO Albuterol Sulfate (Albuterol Sulfate 90 Mcg 8 Gm Inhaler) 1 puff INHALE QID PRN PRN Reason: shortness of breath or wheezing Calcium Carbonate (Calcium Carbonate 750 Mg Tab.Chew) 750 mg PO Q4H PRN PRN Reason: Heartburn Dextrose (Dextrose 50 % 25 Gm/50 Ml Syringe) 25 gm IVPUSH Q15M PRN; Protocol PRN Reason: per Hypoglycemia Standing Ord. Enoxaparin Sodium (Enoxaparin Sodium 40 Mg/0.4 Ml Syringe) 40 mg SUBCUT Q24H [facility] Last Admin: 12/28/24 09:34 Dose: 40 mg Documented By: ARCADIO Furosemide (Furosemide 40 Mg Tablet) 40 mg PO DAILY [facility]; Protocol Glucose (Glucose Gel 15 Gm Gel..Gram.) 15 gm PO Q15M PRN; Protocol PRN Reason: per Hypoglycemia Standing Ord. Cefepime HCl (Maxipime) 2 gm in 50 mls @ 100 mls/hr IV Q8H [facility] Last Infusion: 12/29/24 04:30 Dose: Infused Documented By: PING Insulin Glargine (Insulin Glargine,Hum.Rec.Anlog 100 Unit/Ml 10 Ml Vial) 15 unit SUBCUT BEDTIME [facility] Last Admin: 12/28/24 20:34 Dose: 15 unit Documented By: CHRISTIANO Insulin Human Lispro (Insulin Lispro 100 Unit/Ml 3 Ml Vial) 0 unit SUBCUT QIDACHS [facility]; Protocol Last Admin: 12/29/24 07:55 Dose: 2 unit Documented By: CYNTHIA Magnesium Hydroxide (Milk Of Magnesia 30 Ml Oral.Susp) 30 ml PO DAILY PRN PRN Reason: Constipation Melatonin (Melatonin 3 Mg Tablet) 6 mg PO BEDTIME PRN PRN Reason: Insomnia Ondansetron HCl (Ondansetron Hcl 4 Mg/2 Ml Vial) 4 mg IVPUSH Q8H PRN PRN Reason: Nausea and Vomiting Pharmacy Consult (Consult Rx Vancomycin Dosing) 1 each MISCELLANE DAILY PRN PRN Reason: Consult order Sodium Chloride (0.9 % Sodium Chloride Flush 3 Ml Syringe) 3 ml IVFLUSH QSHIFT [facility] Last Admin: 12/29/24 01:36 Dose: Not Given Documented By: CHRISTIANO Non-Admin Reason: Patient Asleep Labs 12/28/24 01:57 12/28/24 01:57 Labs: Laboratory Results - last 24 hr 12/28/24 12/28/24 12/28/24 11:56 17:31 20:37 POC Glucose 241 H 193 H 221 H 12/29/24 07:44 POC Glucose 159 H Microbiology Microbiology Results: Microbiology 12/28/24 13:46 Gram Stain - Final Foot Right Routine Culture - Preliminary Culture in progress. 12/28/24 06:00 Blood Culture - Preliminary Blood - Venous No growth after 24 hours. 12/28/24 06:00 Blood Culture - Preliminary Blood - Venous No growth after 24 hours. Procedures Date of Service Date of Service: 12/29/24 Progress Note: A&P Assessment and plan (1) Cellulitis of foot, right: Status: Acute Assessment and Plan: Sharp debridement done yesterday to remove full-thickness of nonviable skin and callus Wound clean this morning, no pus, no evidence of gangrene Dressings changed Continue wound care He is to have an MRI today Continue antibiotics and follow up on cultures Time Spent With Patient Time: Total time managing care of this patient today ____ minutes. Quality Stroke Does the patient have a stroke diagnosis?: No VTE Prior VTE?: No VTE Risk Level:: Medical - moderate - high VTE Device Contraindication: Treatment Not Indicated VTE Drug Contraindication: N/A - Med Ordered
[2024-12-29 08:56] LABS: MANUAL DIFF FLAG NO
[2024-12-29 09:06] LABS: Basophils Absolute Auto 0.1 X10*3/uL (0.0-0.2); Basophils Percent Auto 0.6 % (0-2); Eosinophils Absolute Auto 0.3 X10*3/uL (0.0-0.4); Eosinophils Percent Auto 3.5 % (0-4); Hematocrit 29.8 % (42.0-52.0); Hemoglobin 10.3 g/dl (14.0-18.0); Imm Gran Abs Auto 0.02 X10*3/uL (0.00-0.03); Imm Gran Pct Auto 0.3 % (0.0-0.4); Lymphocytes Absolute Auto 1.1 X10*3/uL (1.2-4.9); Lymphocytes Percent Auto 14.3 % (20-40); Mean Corpuscular HGB Conc 34.6 g/dl (31.0-36.0); Mean Corpuscular Hemoglobin 26.4 pg (27.0-33.0); Mean Corpuscular Volume 76.4 fL (80.0-98.0); Mean Platelet Volume 10.8 fL (9.4-12.4); Monocytes Absolute Auto 0.5 X10*3/uL (0.1-1.2); Neutrophils Absolute Auto 5.8 x10*3/uL (2.0-8.3); Neutrophils Percent Auto 74.3 % (45-73); Platelet Count 116 X10*3/uL (160-400); Red Cell Distribution Width 15.5 % (11.0-16.0); White Blood Count 7.8 X10*3/uL (4.8-10.8)
[2024-12-29 09:13] LABS: Anion Gap 10 (12-20); Blood Urea Nitrogen 26 mg/dL (9-16); Calcium 8.9 mg/dL (8.4-10.2); Carbon Dioxide 29 mmol/L (22-29); Chloride 104 mmol/L (96-108); Creatinine Clr Calc Pharmacy 91.1; Estimated Glomerular Filt Rate > 60; Glucose Random 212 mg/dL (60-115); Potassium 4.4 mmol/L (3.3-5.1); Sodium 139 mmol/L (135-145)
[2024-12-29 09:14] LABS: Creatinine Clr Calc Pharmacy 89.5; Estimated Glomerular Filt Rate > 60
[2024-12-29] MEDS: Furosemide 40 MG TABLET PO (09:17)
[2024-12-29] MEDS: 0.9 % Sodium Chloride Flush 3 ML SYRINGE IVFLUSH ×3 (09:18→20:33)
[2024-12-29] MEDS: Enoxaparin Sodium 40 MG/0.4 ML SYRINGE SUBCUT (09:18)
[2024-12-29 09:47] LABS: Erythrocyte Sedimentation Rate 89 MM/HR (0-15)
[2024-12-29 11:06] LABS: Glucose, Whole Blood 255 mg/dL (60-115)
[2024-12-29] MEDS: vancomycin HCL 750 MG in 0.9 % Sodium Chloride 250 ML 265 MG IV (13:13)
[2024-12-29 15:00] LABS: Glucose, Whole Blood 152 mg/dL (60-115)
--- NOTE | 2024-12-29 15:03 | P.PNIM_ITS ---
Subjective Subjective Date of Service: 12/29/24 Interval History: Seen and evaluated this morning feels better after debridement no fever overnight no other events Review of Systems Review of Systems: Yes all other systems are reviewed and are negative Physical Exam 2 Vital Signs: Vital Signs: Last Vital Signs Temp 98.0 F 12/29/24 11:21 Pulse 110 H 12/29/24 12:52 Resp 20 12/29/24 11:21 BP 137/88 12/29/24 14:51 Pulse Ox 97 12/29/24 11:21 O2 Del Method Room Air 12/29/24 11:21 BMI result Body Mass Index 27.3 Const: Other: Constitutional : Awake, interactive, not in distress Neck : Normal inspection, Supple Cardiovascular : RRR, no JVP, no lower extremity edema Respiratory : good bilateral air entry, no crackles, wheezes or rhonchi Gastrointestinal: soft, lax, Normal bowel sounds, Non tender Skin : Warm, Dry, Open wound in lateral aspect of the right foot from the debridement site clean, no significant cellulitis Neurological : Alert & oriented x3, No focal deficit Objective Data Active Medications Acetaminophen (Acetaminophen 325 Mg Tablet) 650 mg PO Q6H PRN PRN Reason: Pain, Mild 1-3,fever,headache Last Admin: 12/28/24 19:16 Dose: 650 mg Documented By: CHRISTIANO Albuterol Sulfate (Albuterol Sulfate 90 Mcg 8 Gm Inhaler) 1 puff INHALE QID PRN PRN Reason: shortness of breath or wheezing Calcium Carbonate (Calcium Carbonate 750 Mg Tab.Chew) 750 mg PO Q4H PRN PRN Reason: Heartburn Dextrose (Dextrose 50 % 25 Gm/50 Ml Syringe) 25 gm IVPUSH Q15M PRN; Protocol PRN Reason: per Hypoglycemia Standing Ord. Enoxaparin Sodium (Enoxaparin Sodium 40 Mg/0.4 Ml Syringe) 40 mg SUBCUT Q24H [facility] Last Admin: 12/29/24 09:18 Dose: 40 mg Documented By: MARY Furosemide (Furosemide 40 Mg Tablet) 40 mg PO DAILY [facility]; Protocol Last Admin: 12/29/24 09:17 Dose: 40 mg Documented By: MARY Glucose (Glucose Gel 15 Gm Gel..Gram.) 15 gm PO Q15M PRN; Protocol PRN Reason: per Hypoglycemia Standing Ord. Cefepime HCl (Maxipime) 2 gm in 50 mls @ 100 mls/hr IV Q8H [facility] Last Infusion: 12/29/24 12:22 Dose: Infused Documented By: MARY Vancomycin HCl 750 mg/ Sodium (Chloride) 265 mls @ 265 mls/hr IV Q12H [facility] Last Infusion: 12/29/24 14:55 Dose: Infused Documented By: MARY Insulin Glargine (Insulin Glargine,Hum.Rec.Anlog 100 Unit/Ml 10 Ml Vial) 15 unit SUBCUT BEDTIME [facility] Last Admin: 12/28/24 20:34 Dose: 15 unit Documented By: CHRISTIANO Insulin Human Lispro (Insulin Lispro 100 Unit/Ml 3 Ml Vial) 0 unit SUBCUT QIDACHS [facility]; Protocol Last Admin: 12/29/24 11:24 Dose: 6 unit Documented By: MARY Magnesium Hydroxide (Milk Of Magnesia 30 Ml Oral.Susp) 30 ml PO DAILY PRN PRN Reason: Constipation Melatonin (Melatonin 3 Mg Tablet) 6 mg PO BEDTIME PRN PRN Reason: Insomnia Ondansetron HCl (Ondansetron Hcl 4 Mg/2 Ml Vial) 4 mg IVPUSH Q8H PRN PRN Reason: Nausea and Vomiting Pharmacy Consult (Consult Rx Vancomycin Dosing) 1 each MISCELLANE DAILY PRN PRN Reason: Consult order Sodium Chloride (0.9 % Sodium Chloride Flush 3 Ml Syringe) 3 ml IVFLUSH QSHIFT [facility] Last Admin: 12/29/24 11:25 Dose: 3 ml Documented By: MARY Labs 12/29/24 08:31 12/29/24 08:31 Labs: Laboratory Results - last 24 hr 12/28/24 12/28/24 12/29/24 17:31 20:37 07:44 MCV MCH MCHC RDW Plt Count MPV Immature Gran % (Auto) Neut % (Auto) Lymph % (Auto) [place] % (Auto) Eos % (Auto) Baso % (Auto) Lymph # (Auto) [place] # (Auto) Eos # (Auto) Baso # (Auto) Abs Immat Gran (auto) Absolute Neuts (auto) Absolute Nucleated RBC Nucleated RBC % (auto) ESR Anion Gap Estim Creat Clear Calc Estimated GFR POC Glucose 193 H 221 H 159 H Random Glucose Calcium 12/29/24 12/29/24 12/29/24 08:31 08:31 08:31 MCV 76.4 L MCH 26.4 L MCHC 34.6 RDW 15.5 Plt Count 116 L MPV 10.8 Immature Gran % (Auto) 0.3 Neut % (Auto) 74.3 H Lymph % (Auto) 14.3 L [place] % (Auto) 7.0 Eos % (Auto) 3.5 Baso % (Auto) 0.6 Lymph # (Auto) 1.1 L [place] # (Auto) 0.5 Eos # (Auto) 0.3 Baso # (Auto) 0.1 Abs Immat Gran (auto) 0.02 Absolute Neuts (auto) 5.8 Absolute Nucleated RBC 0.000 Nucleated RBC % (auto) 0.0 ESR 89 H Anion Gap 10 L Estim Creat Clear Calc 89.5 91.1 Estimated GFR > 60 > 60 POC Glucose Random Glucose 212 H Calcium 8.9 12/29/24 12/29/24 10:55 14:53 MCV MCH MCHC RDW Plt Count MPV Immature Gran % (Auto) Neut % (Auto) Lymph % (Auto) [place] % (Auto) Eos % (Auto) Baso % (Auto) Lymph # (Auto) [place] # (Auto) Eos # (Auto) Baso # (Auto) Abs Immat Gran (auto) Absolute Neuts (auto) Absolute Nucleated RBC Nucleated RBC % (auto) ESR Anion Gap Estim Creat Clear Calc Estimated GFR POC Glucose 255 H 152 H Random Glucose Calcium Microbiology Microbiology Results: Microbiology 12/28/24 13:46 Gram Stain - Final Foot Right Routine Culture - Preliminary Culture in progress. 12/28/24 06:00 Blood Culture - Preliminary Blood - Venous No growth after 24 hours. 12/28/24 06:00 Blood Culture - Preliminary Blood - Venous No growth after 24 hours. 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 # Sepsis due to right foot cellulitis in a patient with chronic diabetic foot ulcer IV vancomycin and IV cefepime Previous wound culture with staph aureus and Enterobacter Foot x-ray not showing OM check CT w Contrast as he can not get MRI Surgery input appreciated, debridement done follow Vanco trough # Orthostatic presyncope 2/2 diabetic autonomic dysfunction IV crystalloids Repeat orthostatics in a.m. # Chest pain atypical: Trend troponin. Likely underlying anxiety contributing. # Combined systolic and diastolic congestive heart failure status post ICD No decompensation during admission Lasix, spironolactone, carvedilol and Entresto May need to titrate based on orthostatic vital signs # Insulin-dependent diabetes mellitus with hyperglycemia sliding scale insulin before meals and at bedtime basal insulin DVT prophylaxis: Lovenox Full code Admit as inpatient and will require overnight minimum hospital stay for IV antibiotics (as above), which is not possible in a lesser acute setting. Quality Stroke Does the patient have a stroke diagnosis?: No VTE Prior VTE?: No VTE Risk Level:: Medical - moderate - high VTE Device Contraindication: Treatment Not Indicated VTE Drug Contraindication: N/A - Med Ordered
--- NOTE | 2024-12-29 16:19 | MHC.CM.PN ---
EMR reviewed and per MD rounds, pt is not medically cleared for discharge due to management of cellulitis.
[2024-12-29 16:31] LABS: Glucose, Whole Blood 150 mg/dL (60-115)
[2024-12-29] MEDS: iohexoL 350 MG/ML 100 ML INFUS..BTL 85 ML IV (17:49)
[2024-12-29 20:07] LABS: Glucose, Whole Blood 168 mg/dL (60-115)
[2024-12-29] MEDS: Insulin Glargine,Hum.rec.anlog 100 UNIT/ML 10 ML VIAL 15 UNIT SUBCUT (20:32)
[2024-12-30] MEDS: vancomycin HCL 750 MG in 0.9 % Sodium Chloride 250 ML 265 MG IV (01:51)
[2024-12-30 03:32] VITALS: BP 140/85; PULSE 89; RESP 16; TEMP 36.7; O2SAT 100
[2024-12-30] MEDS: cefEPime HCl/D5W 2 GM/50 ML PIGGYBACK IV ×3 (05:21→20:57)
[2024-12-30 07:31] LABS: Anion Gap 11 (12-20); Blood Urea Nitrogen 21 mg/dL (9-16); Calcium 8.8 mg/dL (8.4-10.2); Carbon Dioxide 28 mmol/L (22-29); Chloride 104 mmol/L (96-108); Creatinine Clr Calc Pharmacy 98.3; Estimated Glomerular Filt Rate > 60; Glucose Random 158 mg/dL (60-115); Potassium 3.8 mmol/L (3.3-5.1); Sodium 139 mmol/L (135-145)
[2024-12-30] MEDS: Insulin Lispro 100 UNIT/ML 3 ML VIAL SUBCUT ×3 (07:58→16:28)
[2024-12-30] MEDS: Enoxaparin Sodium 40 MG/0.4 ML SYRINGE SUBCUT (07:58)
[2024-12-30] MEDS: Furosemide 40 MG TABLET PO (07:59)
[2024-12-30] MEDS: 0.9 % Sodium Chloride Flush 3 ML SYRINGE IVFLUSH ×2 (08:00→16:29)
[2024-12-30 08:06] VITALS: BP 146/96; PULSE 89; RESP 18; TEMP 36.1; O2SAT 98
[2024-12-30 08:13] LABS: Glucose, Whole Blood 153 mg/dL (60-115)
[2024-12-30 11:30] LABS: Glucose, Whole Blood 231 mg/dL (60-115)
--- NOTE | 2024-12-30 11:43 | HO.PM.IMPN ---
Subjective Subjective Date of Service: 12/30/24 Interval History: Seen and evaluated this morning feels better after debridement CT negative for OM no fever overnight no other events Review of Systems Review of Systems: Yes all other systems are reviewed and are negative Physical Exam Vital Signs: Vital Signs: Last Vital Signs Temp 97.0 F 12/30/24 08:06 Pulse 89 12/30/24 08:06 Resp 18 12/30/24 08:06 BP 146/96 H 12/30/24 08:06 Pulse Ox 98 12/30/24 08:06 O2 Del Method Room Air 12/30/24 08:06 BMI result Body Mass Index 27.3 Const: Other: Constitutional : Awake, interactive, not in distress Neck : Normal inspection, Supple Cardiovascular : RRR, no JVP, no lower extremity edema Respiratory : good bilateral air entry, no crackles, wheezes or rhonchi Gastrointestinal: soft, lax, Normal bowel sounds, Non tender Skin : Warm, Dry, Open wound in lateral aspect of the right foot from the debridement site clean, no significant cellulitis Neurological : Alert & oriented x3, No focal deficit Objective Data Active Medications Acetaminophen (Acetaminophen 325 Mg Tablet) 650 mg PO Q6H PRN PRN Reason: Pain, Mild 1-3,fever,headache Last Admin: 12/28/24 19:16 Dose: 650 mg Documented By: CHRISTIANO Albuterol Sulfate (Albuterol Sulfate 90 Mcg 8 Gm Inhaler) 1 puff INHALE QID PRN PRN Reason: shortness of breath or wheezing Calcium Carbonate (Calcium Carbonate 750 Mg Tab.Chew) 750 mg PO Q4H PRN PRN Reason: Heartburn Dextrose (Dextrose 50 % 25 Gm/50 Ml Syringe) 25 gm IVPUSH Q15M PRN; Protocol PRN Reason: per Hypoglycemia Standing Ord. Enoxaparin Sodium (Enoxaparin Sodium 40 Mg/0.4 Ml Syringe) 40 mg SUBCUT Q24H [facility] Last Admin: 12/30/24 07:58 Dose: 40 mg Documented By: MARY Furosemide (Furosemide 40 Mg Tablet) 40 mg PO DAILY [facility]; Protocol Last Admin: 12/30/24 07:59 Dose: 40 mg Documented By: MARY Glucose (Glucose Gel 15 Gm Gel..Gram.) 15 gm PO Q15M PRN; Protocol PRN Reason: per Hypoglycemia Standing Ord. Cefepime HCl (Maxipime) 2 gm in 50 mls @ 100 mls/hr IV Q8H [facility] Last Admin: 12/30/24 11:20 Dose: 100 mls/hr Documented By: MARY Vancomycin HCl 1,000 mg/ (Sodium Chloride) 270 mls @ 270 mls/hr IV Q12H [facility] Insulin Glargine (Insulin Glargine,Hum.Rec.Anlog 100 Unit/Ml 10 Ml Vial) 15 unit SUBCUT BEDTIME [facility] Last Admin: 12/29/24 20:32 Dose: 15 unit Documented By: SWEETIE Insulin Human Lispro (Insulin Lispro 100 Unit/Ml 3 Ml Vial) 0 unit SUBCUT QIDACHS [facility]; Protocol Last Admin: 12/30/24 11:23 Dose: 4 unit Documented By: MARY Magnesium Hydroxide (Milk Of Magnesia 30 Ml Oral.Susp) 30 ml PO DAILY PRN PRN Reason: Constipation Melatonin (Melatonin 3 Mg Tablet) 6 mg PO BEDTIME PRN PRN Reason: Insomnia Ondansetron HCl (Ondansetron Hcl 4 Mg/2 Ml Vial) 4 mg IVPUSH Q8H PRN PRN Reason: Nausea and Vomiting Pharmacy Consult (Consult Rx Vancomycin Dosing) 1 each MISCELLANE DAILY PRN PRN Reason: Consult order Sodium Chloride (0.9 % Sodium Chloride Flush 3 Ml Syringe) 3 ml IVFLUSH QSHIFT [facility] Last Admin: 12/30/24 08:00 Dose: 3 ml Documented By: MARY Labs 12/29/24 08:31 12/30/24 06:50 Labs: Laboratory Results - last 24 hr 12/29/24 12/29/24 12/29/24 14:53 16:18 20:04 Hold Purple Top Anion Gap Estim Creat Clear Calc Estimated GFR POC Glucose 152 H 150 H 168 H Random Glucose Calcium Hold Yellow Top 12/30/24 12/30/24 12/30/24 06:50 06:50 06:50 Hold Purple Top SEE NOTE Anion Gap 11 L Estim Creat Clear Calc 98.3 98.3 Estimated GFR > 60 > 60 POC Glucose Random Glucose 158 H Calcium 8.8 Hold Yellow Top See Note 12/30/24 12/30/24 07:50 11:14 Hold Purple Top Anion Gap Estim Creat Clear Calc Estimated GFR POC Glucose 153 H 231 H Random Glucose Calcium Hold Yellow Top Microbiology Microbiology Results: Microbiology 12/28/24 06:00 Blood Culture - Preliminary Blood - Venous No growth after 48 hours. 12/28/24 06:00 Blood Culture - Preliminary Blood - Venous No growth after 48 hours. 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 # Sepsis due to right foot cellulitis in a patient with chronic diabetic foot ulcer IV vancomycin and IV cefepime Previous wound culture with staph aureus and Enterobacter Foot x-ray not showing OM CT w Contrast negative for OM Wound culture growing GNR pending final sensitivity Surgery input appreciated, debridement done follow Vanco trough # Orthostatic presyncope 2/2 diabetic autonomic dysfunction IV crystalloids Repeat orthostatics in a.m. # Chest pain atypical: Trend troponin. Likely underlying anxiety contributing. # Combined systolic and diastolic congestive heart failure status post ICD No decompensation during admission Lasix, spironolactone, carvedilol and Entresto May need to titrate based on orthostatic vital signs # Insulin-dependent diabetes mellitus with hyperglycemia sliding scale insulin before meals and at bedtime basal insulin DVT prophylaxis: Lovenox Full code Admit as inpatient and will require overnight minimum hospital stay for IV antibiotics (as above), which is not possible in a lesser acute setting. Quality Stroke Does the patient have a stroke diagnosis?: No VTE Prior VTE?: No VTE Risk Level:: Medical - moderate - high VTE Device Contraindication: Treatment Not Indicated VTE Drug Contraindication: N/A - Med Ordered
[2024-12-30] MEDS: vancomycin HCL 1,000 MG in 0.9 % Sodium Chloride 250 ML 270 MG IV (11:52)
[2024-12-30 12:00] VITALS: BP 142/94; PULSE 99; RESP 18; TEMP 36.2; O2SAT 100
[2024-12-30 15:24] VITALS: BP 148/108; PULSE 93; RESP 18; TEMP 36.4; O2SAT 100
[2024-12-30 16:32] LABS: Glucose, Whole Blood 178 mg/dL (60-115)
[2024-12-30 20:00] VITALS: BP 160/80; PULSE 101; RESP 16; TEMP 37.1; O2SAT 100
[2024-12-30 21:10] LABS: Glucose, Whole Blood 142 mg/dL (60-115)
[2024-12-30] MEDS: Insulin Glargine,Hum.rec.anlog 100 UNIT/ML 10 ML VIAL 15 UNIT SUBCUT (21:15)
[2024-12-30 23:43] VITALS: BP 140/82; PULSE 102; RESP 16; TEMP 37.1; O2SAT 100
[2024-12-31] MEDS: vancomycin HCL 1,000 MG in 0.9 % Sodium Chloride 250 ML 270 MG IV ×2 (00:27→11:47)
[2024-12-31] MEDS: 0.9 % Sodium Chloride Flush 3 ML SYRINGE IVFLUSH ×2 (00:31→07:29)
[2024-12-31] MEDS: cefEPime HCl/D5W 2 GM/50 ML PIGGYBACK IV ×2 (03:19→11:10)
[2024-12-31 03:21] VITALS: BP 140/80; PULSE 99; RESP 16; TEMP 36.7; O2SAT 100
[2024-12-31] MEDS: Enoxaparin Sodium 40 MG/0.4 ML SYRINGE SUBCUT (07:28)
[2024-12-31] MEDS: Furosemide 40 MG TABLET PO (07:29)
[2024-12-31 07:43] LABS: Creatinine Clr Calc Pharmacy 96.4; Estimated Glomerular Filt Rate > 60
[2024-12-31 07:48] VITALS: BP 132/86; PULSE 102; RESP 18; TEMP 36.2; O2SAT 100
[2024-12-31 07:50] LABS: Glucose, Whole Blood 123 mg/dL (60-115)
[2024-12-31] MEDS: Insulin Lispro 100 UNIT/ML 3 ML VIAL SUBCUT (11:10)
[2024-12-31 11:13] VITALS: BP 142/86; PULSE 101; RESP 18; TEMP 36.4; O2SAT 97
[2024-12-31 11:15] LABS: Glucose, Whole Blood 181 mg/dL (60-115)
[2024-12-31 11:36] LABS: Vancomycin Random 18.3 mcg/mL (15-20)
--- NOTE | 2024-12-31 12:17 | PM.DS ---
DS: Providers Provider Date of Service: 12/31/24 Date of admission: 12/28/24 05:35 Date of discharge: 12/31/24 Primary care physician: Tomy Cannon PA-C Consults: 12/28/24 11:53 Consult to General Surgery Routine Consulting Provider: [facility] [place] [facility] Reason for consultation: Foot wound with gas DS: Diagnosis Discharge Diagnosis (1) Cellulitis of foot, right: Status: Acute (2) Diabetic foot ulcer: Status: Acute (3) Orthostatic dizziness: Status: Acute (4) Sepsis: Status: Acute DS: Summary Hospital Course Hospital Course: Admission note HPI This is a 44-year-old male with pertinent history of 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 Patient has multiple complaints at the time of my evaluation. States he started having right foot pain which is worse with walking that he noticed a couple of days prior to presentation. He also noticed redness and warmth around nonhealing diabetic foot ulcer. Patient is concerned that he has an infection due to the pain. He is also complaining of midsternal chest pain that is intermittent, nonradiating that started 2 weeks prior to presentation. It is not relieved with rest and is not exacerbated with exertion. He did not try nitroglycerin. Patient also states that he got dizzy and lightheaded when he tried to stand up on the day of presentation. No fever, chills, shortness of breath, orthopnea, abdominal pain, changes in urinary or bowel habits. In the emergency department, patient was found to be septic with leukocytosis 14.9 and elevated heart rate. He was initiated on empiric IV antibiotics. Hospital course The patient was admitted and treated for: # Sepsis due to right foot cellulitis in a patient with chronic diabetic foot ulcer. Treated with IV vancomycin and IV cefepime based on Previous wound culture with staph aureus and Enterobacter. Foot x-ray not showing OM CT w Contrast negative for Osteomyelitis as well. Wound culture grew Enterobacter again. blood cultures remained negative. Surgery evaluated the patient and did Sharp debridement done yesterday to remove full-thickness of nonviable skin and callus. To be discharged on 10 more days of Ciprofloxacin. # Orthostatic dizziness 2/2 diabetic autonomic dysfunction. responded to IV crystalloids. Repeated orthostatics normal. # Chest pain on presentation. atypical: Trended troponin negative. Likely underlying anxiety. Discharge plan Follow with wound care clinic Ciprofloxacin for 10 more days Avoid callus. check you feet on daily basis. Time Attestation Discharge Coordination Time (in mins): 35 Quality: Safe Use of Opioids Does Pt have an Active Cancer Diagnosis on the Problem List?: No Quality: Stroke Does the patient have a stroke diagnosis?: No Physical Exam Vital Signs: Vital Signs: Last Vital Signs Temp 97.5 F 12/31/24 11:13 Pulse 101 H 12/31/24 11:13 Resp 18 12/31/24 11:13 BP 142/86 H 12/31/24 11:13 Pulse Ox 97 12/31/24 11:13 O2 Del Method Room Air 12/31/24 11:13 BMI result Body Mass Index 27.3 Const: Other: Constitutional : Awake, interactive, not in distress Neck : Normal inspection, Supple Cardiovascular : RRR, no JVP, no lower extremity edema Respiratory : good bilateral air entry, no crackles, wheezes or rhonchi Gastrointestinal: soft, lax, Normal bowel sounds, Non tender Skin : Warm, Dry, Open wound in lateral aspect of the right foot from the debridement site clean, no significant cellulitis Neurological : Alert & oriented x3, No focal deficit DS: Data Data Completed and Pending Completed studies during hospitalization [Text1]: Procedures Excision of Right Foot Skin, External Approach (10/17/24) Excision of Right Foot Subcutaneous Tissue and Fascia, Open Approach (08/22/24) Labs on day of discharge: Laboratory Results - last 24 hr 12/30/24 12/30/24 12/31/24 16:26 20:56 06:58 Hold Purple Top SEE NOTE Creatinine 1.03 Estim Creat Clear Calc 96.4 Estimated GFR > 60 POC Glucose 178 H 142 H Random Vancomycin 12/31/24 12/31/24 12/31/24 07:45 11:03 11:10 Hold Purple Top Creatinine Estim Creat Clear Calc Estimated GFR POC Glucose 123 H 181 H Random Vancomycin 18.3 Preliminary micro results at discharge 12/28/24 06:00 Blood Culture - Preliminary Blood - Venous No growth after 48 hours. 12/28/24 06:00 Blood Culture - Preliminary Blood - Venous No growth after [address] Foot : Radiologist's impression: ITS Impressions Chest X-Ray 12/28/24 02:10 IMPRESSION: No active pulmonary disease. Electronically signed by: Francis Farley MD 12/29/2024 12:19 PM EDT RP Discharge Plan Discharge Anticipated Discharge Date/Time: 12/31/24 11:41 Patient Disposition: Home, Self-Care Discharge Diagnosis: Foot cellulitis and Ulcers Referrals: Tomy Cannon PA-C [Primary Care Provider] - 1 Week Discharge Medications: New ciprofloxacin HCl 500 mg tablet 500 mg PO BID Qty: 20 0RF Continued (DME) FreeStyle Elaine 3 Sensor Device See Rx Instructions .Route Qty: 1 3RF Rx Instructions: As directed albuterol sulfate 90 mcg/actuation HFA aerosol inhaler 1 inh inhalation QID PRN (Reason: shortness of breath or wheezing) 30 Days Qty: 8.5 0RF (DME) pen needle, diabetic [BD Lula 2nd Gen Pen Needle] 32 gauge x 5/32 needle See Rx Instructions .ROUTE DAILY Qty: 1200 1RF Rx Instructions: 4 times per day (DME) FreeStyle Elaine 3 Sensor Device See Rx Instructions .Route Qty: 2 6RF Rx Instructions: As directed insulin glargine [Lantus Solostar U-100 Insulin] 100 unit/mL (3 mL) insulin pen 18 unit subcut BEDTIME furosemide [Lasix] 40 mg tablet 40 mg PO DAILY Qty: 90 0RF insulin lispro 100 unit/mL insulin pen 10 unit subcut TIDAC Protocol: Insulin Correction Scale Less than or equal to 110 ---- Give (units): 0 111 to 150 Give (units): 0 151 to 200 Give (units): 2 201 to 250 Give (units): 4 251 to 300 Give (units): 6 301 to 350 Give (units): 8 Greater than 350 Give (units): 10 Call MD if Blood Glucose > : 350 Rx Instructions: Breakfast, Lunch and Dinner (DME) FreeClowdyyle Elaine 3 [place] Misc See Rx Instructions .Route Qty: 1 0RF Rx Instructions: As directed Discharge Orders: Discharge Order (Routine); Ordered 12/31/24 Ordered By: Kemal Hu Diet: Diabetic diet Activity on Discharge: As tolerated Stand Alone Forms: Patient Portal Discharge page Print Language: Malagasy Care Plan Goals: Follow with wound care clinic Ciprofloxacin for 10 more days Avoid callus. check you feet on daily basis. Health Concerns: Ciprofloxacin Plan of Treatment: Wound care and antibiotics Assessment: as above
--- NOTE | 2024-12-31 12:44 | MHC.CM.PN ---
Pt has been medically cleared for DC, he will go home via private transport, plan is self care.
== END 2024-12-31 12:55 | disposition home or self-care (01) | DRG 720 ==
LOC: HO.ED 05:28 → HO.EDOVER 05:43 → HO.IMC 12-29 05:53
PROVIDERS: Admitting Provider Student in an Organized Health Care Education/Training Program; Emergency Provider Emergency Medicine; PCP Physician Assistant; Visit Provider Student in an Organized Health Care Education/Training Program
DX: A41.9 Sepsis, unspecified organism (principal); G90.89 Other disorders of autonomic nervous system; I42.8 Other cardiomyopathies; E11.43 Type 2 diabetes mellitus with diabetic autonomic (poly)neuropathy; E11.621 Type 2 diabetes mellitus with foot ulcer; I50.42 Chronic combined systolic (congestive) and diastolic (congestive) heart failure; I11.0 Hypertensive heart disease with heart failure; L03.115 Cellulitis of right lower limb; I95.1 Orthostatic hypotension; E11.65 Type 2 diabetes mellitus with hyperglycemia; F33.9 Major depressive disorder, recurrent, unspecified; L97.519 Non-pressure chronic ulcer of other part of right foot with unspecified severity; F10.91 Alcohol use, unspecified, in remission; Z95.810 Presence of automatic (implantable) cardiac defibrillator; Z20.822 Contact with and (suspected) exposure to COVID-19; Z79.4 Long term (current) use of insulin; Z79.899 Other long term (current) drug therapy
CPT/HCPCS: 0241U; 36415; 71046; 73630; 73701; 80048; 80053; 80202; 82565; 82947; 83605; 83880; 84484; 85025; 85652; 87040; 87070; 87077; 87186; 87205; 93005; 99285; J0692; J1650; J2003; J2270; J2543; J3370; J7120; Q9967

== ENCOUNTER → 2024-12-28 01:39 | Outpatient (BNV) | payer OTHER, SELFPAY | PROVIDERS: Admitting Provider Student in an Organized Health Care Education/Training Program; Emergency Provider Emergency Medicine; PCP Physician Assistant; Visit Provider Internal Medicine Cardiovascular Disease | DX: R00.0 Tachycardia, unspecified (principal) | CPT/HCPCS: 93010 ==

== ENCOUNTER → 2024-12-28 05:13 | Outpatient (BNV) | payer OTHER, SELFPAY | PROVIDERS: Admitting Provider Student in an Organized Health Care Education/Training Program; Emergency Provider Emergency Medicine; PCP Physician Assistant; Visit Provider Radiology Diagnostic Radiology | DX: M79.89 Other specified soft tissue disorders (principal) | CPT/HCPCS: 73630 ==

== ENCOUNTER 2024-12-28 05:35 | Outpatient (BNV) | payer OTHER, SELFPAY | END 2024-12-29 17:05 | PROVIDERS: Admitting Provider Student in an Organized Health Care Education/Training Program; Emergency Provider Emergency Medicine; PCP Physician Assistant; Visit Provider Specialist | DX: M79.89 Other specified soft tissue disorders (principal) | CPT/HCPCS: 73701 ==

== ENCOUNTER → 2024-12-28 05:35 | Outpatient (BNV) | payer OTHER, SELFPAY | PROVIDERS: Admitting Provider Student in an Organized Health Care Education/Training Program; Emergency Provider Emergency Medicine; PCP Physician Assistant; Visit Provider Physician Assistant Surgical | DX: L03.115 Cellulitis of right lower limb (principal) | CPT/HCPCS: 11042; 99222; 99232 ==

== ENCOUNTER → 2024-12-28 05:35 | Outpatient (BNV) | payer OTHER, SELFPAY | PROVIDERS: Admitting Provider Student in an Organized Health Care Education/Training Program; Emergency Provider Emergency Medicine; PCP Physician Assistant; Visit Provider Student in an Organized Health Care Education/Training Program | DX: L03.115 Cellulitis of right lower limb (principal); E11.621 Type 2 diabetes mellitus with foot ulcer; L97.413 Non-pressure chronic ulcer of right heel and midfoot with necrosis of muscle; R42 Dizziness and giddiness; A41.9 Sepsis, unspecified organism | CPT/HCPCS: 99223; 99232; 99239 ==

== ENCOUNTER 2025-01-10 14:24 | Outpatient (AMB) | payer OTHER, SELFPAY ==
[2025-01-10 14:43] VITALS: BP 128/96; PULSE 116; TEMP 36.2; O2SAT 98; BMI 26.9
--- NOTE | 2025-01-10 14:43 | A.OFFPC_ITS ---
Vital Signs 01/10/25 14:43 Height 5 ft 10 in Weight 187 lb 4 oz BMI 26.9 BP 128/96 H Blood Pressure Location Lt brachial Position Sitting Pulse 116 H Pulse Source Pulse Oximeter Temp 97.1 F Temp Source Temporal Artery Scan Pulse Oximetry (%) 98 Oxygen Delivery Method Room Air Intake Visit Reasons: annual exam Mail Technician Required: No Accompanied by: Self / Same As Patient Allergies metformin Adverse Reaction (Intermediate, Verified 01/10/25 15:09) GI side effects Medication List - Last Reconciled 01/10/25 by Tomy Cannon PA-C albuterol sulfate 90 mcg/actuation 1 inh inhalation QID PRN 30 days blood-glucose sensor (FreeStyle Elaine 3 Sensor device) As directed blood-glucose sensor (FreeStyle Elaine 3 Sensor device) As directed blood-glucose,demolition engineer,cont (FreeStyle Elaine 3 [place]) As directed furosemide (Lasix) 40 mg PO DAILY insulin glargine (Lantus Solostar U-100 Insulin) 18 units subcut BEDTIME insulin lispro 10 units See Protocol subcut TIDAC pen needle, diabetic (BD Lula 2nd Gen Pen Needle) 4 times per day Tobacco use date assessed: 11/03/24 Dental Screening Dental Screen Date: 09/01/24 HPI annual exam HPI Details Patient is a 44-year-old male here today for an annual physical. Patient has a past medical history significant type 2 diabetes, anxiety, Congestive heart failure, GERD. . Congestive heart failure with reduced ejection fraction: Recent admission to the hospital where cardiology consulted due to his heart failure symptoms. All of his cardiac medications has been held besides his diuretics due to effects of with the aesthetic hypertension.. He has underwent a cardiac MRI which contin ues to show a fairly low ejection fraction. He is now seeing heart failure specialist at [facility] in his upcoming appointment in March. Unfortunately continues to have symptoms of dizziness and fatigue specially on exertion to the point he has to flex his neck and hold his head for 10 minutes before he is able to regain his sense of balance. Has follow-up visit with Cardiology and will discuss restarting his additional cardiac meds Cardiology considering defibrillator if LV remains low and further workup with a cardiac MRI Diabetic foot ulcer/abscess: Patient recently admitted to [facility] for acute Congestive heart failure exacerbation and diabetic foot ulcer to which he was treated with IV piperacillin tazobactam and vancomycin. General surgeon evaluated and performed bedside debridement of necrotic tissue. Wound cultures of the diabetic ulcer did grow Staphylococcus aureus. Now has home in a doing wound care. Now followed Podiatry, general surgeon and wound care nurse at home. He reports his wound is looking good and healing. Most recent A1c suboptimal above 8. Vaccines: Up-to-date with COVID vaccine, tetanus vaccine and pneumonia vaccine [facility] Medical History ICD (implantable cardioverter-defibrillator) in place Cardiomyopathy HTN (hypertension) DMII (diabetes mellitus, type 2) Cardiomyopathy Foot callus Cellulitis of foot Chronic combined systolic and diastolic CHF (congestive heart failure) Palpitation JOLIE (generalized anxiety disorder) MDD (major depressive disorder), recurrent episode, moderate Diabetic foot ulcer Alcohol use disorder in remission CHF (congestive heart failure) Small bowel obstruction Hx of intestinal obstruction Erectile disorder due to medical condition in male patient (~10/17/24) Knee pain, right Surgical History Hx of esophagogastroduodenoscopy History of appendectomy History of hernia surgery Family History Mother Diabetes High blood pressure Social History (Updated 01/10/25 @ 15:14 by Tomy Cannon PA-C) Household Members: Friend(s) Household Members Other:: three kids and Housing: House Do you presently have visiting nurse or other home services: No Alcohol intake: former Year quit: 2023 Comment: pt uses call cole when he needs assistance Patient Tobacco Use Status: Never used Tobacco Tobacco use type: Cigarette e-Cigarette/Vaping Use: Never Used Second Hand Smoke Exposure: No Advance Directives Date on File: 12/16/23 service: No Current occupational status: disabled Current occupation: right handed Cognitive needs: No Hearing needs: No Vision needs: No Questionnaire PHQ-9 Over the last 2 weeks, how often have you been bothered by any of the following problems? 1. Little interest or pleasure in doing things: several days 2. Feeling down, depressed, or hopeless: several days 3. Trouble falling or staying asleep, or sleeping too much: several days 4. Feeling tired or having little energy: several days 5. Poor appetite or overeating: several days 6. Feeling bad about yourself - or that you are a failure or have let yourself or your family down: several days 7. Trouble concentrating on things, such as reading the newspaper or watching television: several days 8. Moving or speaking so slowly that other people could have noticed. Or the opposite - being so fidgety or restless that you have been moving around a lot more than usual: several days 9. Thoughts that you would be better off or of hurting yourself in some way: several days Total score: 9 [id number] - PHQ-9 Billing: Yes Source: Developed by Drs. Josh Nava, Shelby Peres, Manuel Lloyd and colleagues, with an educational zaid from [employer]. Thrive Questionnaire Date Thrive assessed: 01/10/25 I am a: Patient What is your living situation today?: I have a place to live, but I am worried about losing it in the future Within the past 12 months, did the food you bought not last and you didn't have the money to get more?: Sometimes True Within the past 12 months, did you worry whether your food would run out before you got money to buy more?: Sometimes True Do you have trouble paying for medicines?: Yes Do you have trouble getting transportation to medical appointments?: No Do you have trouble paying your heating and electricity bill?: No Do you have trouble taking care of your child, family member or friend?: No Do you have trouble with day-to-day activities such as bathing, preparing meals, shopping, managing finances, etc.?: Yes Are you currently unemployed and looking for a job?: I choose not to answer this question Are you interested in more education?: No Please select the resources that you would like help with: Care for elder or disabled Currently or been in a relationship where the following occur: I choose not to answer THRIVE Score: 3 AUDIT C Alcohol Use Questionnaire (AUDIT-C) 1. How often do you have a drink containing alcohol?: Never 3. How often do you have six or more drinks on one occasion?: Never Total Score: 0 JOLIE-7 AMB Questionnaire JOLIE-7 Date JOLIE - 7 assessed: 01/10/25 Feeling nervous, anxious, or on edge: 1 = Several days Not being able to stop or control worryin = Several days Worrying too much about different things: 1 = Several days Trouble relaxin = More than half the days Being so restless that it is hard to sit still: 1 = Several days Becoming easily annoyed or irritable: 1 = Several days Feeling afraid as if something awful might happen: 1 = Several days Total JOLIE-7 score (0-4 normal; 5-9 mild; 10-14 moderate; 15-21 severe): 8 Source: Developed by Drs. Josh Nava, Shelby Peres, Manuel Lloyd and colleagues, with an educational zaid from [employer]. JOLIE-7 Assessment Billing JOLIE-7 Assessment Tool: JOLIE-7 Assessment [id number] Physical exam (Primary Care) Vital Signs: Last Vital Signs Temp 97.1 F 01/10/25 14:43 Pulse 116 H 01/10/25 14:43 BP 128/96 H 01/10/25 14:43 Pulse Ox 98 01/10/25 14:43 Oxygen Delivery Method Room Air 01/10/25 14:43 BMI result Body Mass Index 26.9 Tobacco/Smoking Status: Tobacco use Status Tobacco use date assessed 11/03/24 01/10/25 14:43 Patient Tobacco Use Status Never used Tobacco 01/10/25 14:43 Tobacco use type Cigarette 01/10/25 14:43 e-Cigarette/Vaping Use Never Used 01/10/25 14:43 PHQ-9: PHQ-9 Score PHQ-9: Total score 9 01/10/25 15:03 Thrive Assessment: Date of Thrive Assessment Date Thrive assessed 01/10/25 01/10/25 14:46 Currently or been in a relationship where the following occur: I choose not to answer Results AMB Hemoglobin A1c AMB Hemoglobin A1c 8.4 % Last Edit by MALIHA Spence on 01/10/25 15:04 Results Reviewed Results Reviewed: Laboratory Last Values Hgb A1c (Clinic) 8.4 % (4.0-6.0) H 01/10/25 15:03 Coding Diagnoses Annual physical exam Z00.00 Diabetic ulcer of toe of left foot associated with type 2 diabetes mellitus, with fat layer exposed E11.621; L97.522 Diabetic foot ulcer location: toe Laterality: left Non-pressure ulcer stage: with fat layer exposed Chronic combined systolic and diastolic CHF (congestive heart failure) I50.42 Type 2 diabetes mellitus with hyperglycemia, without long-term current use of insulin E11.65 Diabetes mellitus senior care insulin use: without exterminator use Diabetes mellitus complication status: with hyperglycemia Additional Codes JOLIE-7 Assessment Billing - JOLIE-7 Assessment Tool: JOLIE-7 Assessment [id number] ([id number]) PHQ-9 - 49935 - PHQ-9 Billing: Yes ([id number]) Assessment & Plan Assessment & Plan (1) Annual physical exam: Code(s): Z00.00 - Encounter for general adult medical examination without abnormal findings Category: Medical Plan: as scheduled (2) Diabetic foot ulcer associated with type 2 diabetes mellitus: Code(s): E11.621 - Type 2 diabetes mellitus with foot ulcer; L97.509 - Non-pressure chronic ulcer of other part of unspecified foot with unspecified severity Category: Medical Qualifiers: Diabetic foot ulcer location: toe Laterality: left Non-pressure ulcer stage: with fat layer exposed Qualified Code(s): E11.621 - Type 2 diabetes mellitus with foot ulcer; L97.522 - Non-pressure chronic ulcer of other part of left foot with fat layer exposed (3) Chronic combined systolic and diastolic CHF (congestive heart failure): Code(s): I50.42 - Chronic combined systolic (congestive) and diastolic (congestive) heart failure Category: Medical (4) DMII (diabetes mellitus, type 2): Comment: A1c 11.7% (08/2023) , 8.1% on 12/2023 Code(s): E11.9 - Type 2 diabetes mellitus without complications Category: Medical Qualifiers: Diabetes mellitus exterminator insulin use: without senior care use Diabetes mellitus complication status: with hyperglycemia Qualified Code(s): E11.65 - Type 2 diabetes mellitus with hyperglycemia Orders: Orders AMB Hemoglobin A1c Today E11.65 - Type 2 diabetes mellitus with hyperglycemia Medications: New blood-glucose,demolition engineer,cont (D[employer] G7 [employer]itness [employer] Manager) As directed 1 ea 0RF E11.65 - Type 2 diabetes mellitus with hyperglycemia blood-glucose sensor (Dexcom G7 Sensor device) As directed 1 ea 3RF E11.65 - T ype 2 diabetes mellitus with hyperglycemia Changed From insulin glargine (Lantus Solostar U-100 Insulin) 18 units subcut BEDTIME E11.65 - Type 2 diabetes mellitus with hyperglycemia To insulin glargine (Lantus Solostar U-100 Insulin) 24 units subcut BEDTIME E11.65 - Type 2 diabetes mellitus with hyperglycemia Refilled furosemide (Lasix) 40 mg PO DAILY 90 tabs 0RF
--- OUTSIDE RECORDS SUMMARY | 2025-01-10 15:17 | XMS_ITS | Clinical Summary ---
Author Organization [address] [place] [address] Address [address] [place] [address] Phone Care Team Providers Care Branch Coordinator Name Role Phone Tomy Cannon Primary Care [...] AM EDT Office Visit Orthopedic Surgery - [place] [address] [facility] [address] [place] [address] Costa Blakely DPM Controlled type 2 diabetes mellitus with diabetic polyneuropathy, without long-term current use of insulin ([facility] V24, [facility] V28) (Primary Dx); Onychomycosis; Localized edema; Metatarsalgia of both feet; Midfoot ulceration, right, with fat layer exposed ([facility] V24, CMS/[facility] V28) from Last 3 Months Social History [...] AM EDT Office Visit Orthopedic Surgery - [place] [address] [phone] Costa Blakely DPM [address] [address] Health Maintenance Due Date Last Done Comments [...] patient's age to complete this topic Insurance [facility] PLAN Care Teams Branch Coordinator Relationship Specialty Start Date End Date Tomy Cannon PA [facility] [place] [address] PCP - General 03/15/24
== END 2025-01-10 15:49 | disposition home or self-care (01) ==
LOC: HO.HMCH 14:25
PROVIDERS: PCP Physician Assistant; Visit Provider Physician Assistant
DX: E11.65 Type 2 diabetes mellitus with hyperglycemia (principal)

== ENCOUNTER → 2025-01-10 14:24 | Outpatient (BNVA) | payer OTHER, SELFPAY | PROVIDERS: PCP Physician Assistant; Visit Provider Physician Assistant | DX: Z00.00 Encounter for general adult medical examination without abnormal findings (principal); I50.42 Chronic combined systolic (congestive) and diastolic (congestive) heart failure; I42.6 Alcoholic cardiomyopathy; E11.621 Type 2 diabetes mellitus with foot ulcer; L97.522 Non-pressure chronic ulcer of other part of left foot with fat layer exposed; E11.65 Type 2 diabetes mellitus with hyperglycemia; Z79.4 Long term (current) use of insulin; Z13.30 Encounter for screening examination for mental health and behavioral disorders, unspecified; Z13.31 Encounter for screening for depression | CPT/HCPCS: 83036; 96127; 99396 ==

== ENCOUNTER 2025-01-11 10:38 | Outpatient (RCR) | payer OTHER, SELFPAY | END 2025-02-01 11:54 | disposition home or self-care (01) | LOC: HO.WCC 10:38 | PROVIDERS: PCP Physician Assistant; Visit Provider Colon & Rectal Surgery | DX: Z09 Encounter for follow-up examination after completed treatment for conditions other than malignant neoplasm (principal); L84 Corns and callosities; E10.40 Type 1 diabetes mellitus with diabetic neuropathy, unspecified; I50.9 Heart failure, unspecified; Z87.891 Personal history of nicotine dependence; Z86.31 Personal history of diabetic foot ulcer | CPT/HCPCS: 99213 ==

== ENCOUNTER → 2025-03-26 23:59 | Outpatient (BNV) | payer OTHER, SELFPAY ==
--- NOTE | 2025-03-28 19:41 | MHC.OFFVIS ---
Intake Visit Reasons: Remote ICD Device Ck-Allen Sci Allergies metformin Adverse Reaction (Intermediate, Verified 01/10/25 15:09) GI side effects [facility] Medical History (Updated 03/28/25 @ 19:42 by Oleg Ritter MD) ICD (implantable cardioverter-defibrillator) in place Cardiomyopathy HTN (hypertension) DMII (diabetes mellitus, type 2) Cardiomyopathy Foot callus Cellulitis of foot Chronic combined systolic and diastolic CHF (congestive heart failure) Palpitation JOLIE (generalized anxiety disorder) MDD (major depressive disorder), recurrent episode, moderate Diabetic foot ulcer Alcohol use disorder in remission CHF (congestive heart failure) Small bowel obstruction Hx of intestinal obstruction Erectile disorder due to medical condition in male patient (~10/17/24) Knee pain, right Surgical History Hx of esophagogastroduodenoscopy History of appendectomy History of hernia surgery Family History Mother Diabetes High blood pressure Social History (Updated 01/10/25 @ 15:14 by Tomy Cannon PA-C) Household Members: Friend(s) Household Members Other:: three kids and Housing: House Do you presently have visiting nurse or other home services: No Alcohol intake: former Year quit: 2023 Comment: pt uses call cole when he needs assistance Patient Tobacco Use Status: Never used Tobacco Tobacco use type: Cigarette e-Cigarette/Vaping Use: Never Used Second Hand Smoke Exposure: No Advance Directives Date on File: 12/16/23 service: No Current occupational status: disabled Current occupation: right handed Cognitive needs: No Hearing needs: No Vision needs: No Office Procedures Cardiac Device Check Cardiac Device Check Details: Date of service 03/26/2025; Battery life >14 years; normal lead parameters; no treated VT/VF; normal ICD function. [id number] Cardiac Interrogation, implant defibrillator w/interim Procedure code (CPT) selection complete Assessment & Plan Assessment & Plan (1) ICD (implantable cardioverter-defibrillator) in place: Code(s): Z95.810 - Presence of automatic (implantable) cardiac defibrillator Category: Medical (2) Cardiomyopathy: Code(s): I42.9 - Cardiomyopathy, unspecified Category: Medical Qualifiers: Cardiomyopathy type: dilated Qualified Code(s): I42.0 - Dilated cardiomyopathy Plan x Coding Level of Care Code Procedure Only Diagnoses ICD (implantable cardioverter-defibrillator) in place Z95.810 Dilated cardiomyopathy I42.0 Cardiomyopathy type: dilated CPT Codes Cardiac Device Check - Cardiac Device 13: [id number] Cardiac Interrogation, implant defibrillator w/interim ([id number])
== END ==
PROVIDERS: PCP Physician Assistant; Visit Provider Internal Medicine
DX: I42.0 Dilated cardiomyopathy (principal); Z95.810 Presence of automatic (implantable) cardiac defibrillator
CPT/HCPCS: 93295

== ENCOUNTER 2025-04-02 13:11 | Outpatient (AMB) | payer OTHER, SELFPAY ==
[2025-04-02 13:32] VITALS: BP 90/60; PULSE 107; BMI 26.5
--- NOTE | 2025-04-02 13:32 | A.OFFVIS_ITS ---
Vital Signs 04/02/25 13:32 Height 5 ft 10 in Weight 185 lb BMI 26.5 BP 90/60 Blood Pressure Location Lt brachial Position Sitting Pulse 107 H Pulse Source Pulse Oximeter Intake Visit Reasons: f/up w/ [place] [facility] [place] [facility] [place] Allergies metformin Adverse Reaction (Intermediate, Verified 01/10/25 15:09) GI side effects Medication List - Last Reconciled 04/02/25 by Oleg Ritter MD albuterol sulfate 90 mcg/actuation 1 inh inhalation QID PRN 30 days blood-glucose sensor (FreeStyle Elaine 3 Sensor device) As directed blood-glucose sensor (FreeStyle Elaine 3 Sensor device) As directed blood-glucose sensor (Dexcom G7 Sensor device) As directed blood-glucose,physical therapy technician,cont (FreeStyle Elaine 3 [place]) As directed blood-glucose,physical therapy technician,cont (Dexcom G7 [address] Production Manager) As directed insulin glargine (Lantus Solostar U-100 Insulin) 24 units subcut BEDTIME insulin lispro 10 units See Protocol subcut TIDAC pen needle, diabetic (BD Lula 2nd Gen Pen Needle) 4 times per day sacubitril-valsartan 24-26 mg (Entresto) 1 tab PO BID spironolactone 25 mg PO DAILY HPI Comments Details: Mark returns for follow-up regarding congestive heart failure. Suspected to have nonischemic cardiomyopathy, possibly related to alcohol excess. The last time he was heavily drinking was about an year ago or so but nothing after that. In the past, he has had stress testing as well which was unremarkable. Longstanding diabetes. No known coronary disease or myocardial infarction. It has been very difficult to keep him on guideline based medical therapy as he gets some combination of orthostatic hypotension, syncope, renal insufficiency and has even required midodrine. So essentially, he has been off and on GDMT. He has seen advanced heart failure team at [facility] and also saw EP. Has undergone ICD. Overall, he states he feels just about the same as before. No new concerns. Seems reasonably stable. 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 (~10/17/24) Knee pain, right Surgical History Hx of esophagogastroduodenoscopy History of appendectomy History of hernia surgery Family History Mother Diabetes High blood pressure Social History (Updated 01/10/25 @ 15:14 by Tomy Cannon PA-C) Household Members: Friend(s) Household Members Other:: three kids and Housing: House Do you presently have visiting nurse or other home services: No Alcohol intake: former Year quit: 2023 Comment: pt uses call cole when he needs assistance Patient Tobacco Use Status: Never used Tobacco Tobacco use type: Cigarette e-Cigarette/Vaping Use: Never Used Second Hand Smoke Exposure: No Advance Directives Date on File: 12/16/23 service: No Current occupational status: disabled Current occupation: right handed Cognitive needs: No Hearing needs: No Vision needs: No Review of Systems Const Denies weakness ENT Denies dizziness Card Denies chest pain, Denies chest pain with activity, Denies syncope, Denies rapid heart rate, Denies pedal edema, Denies edema, Denies leg edema, Denies lightheadedness, Denies palpitations, Denies dyspnea, Denies dyspnea on exertion and Denies orthopnea Resp Denies cough, Denies dyspnea and Denies dyspnea on exertion GI Denies hematochezia and Denies change in stool character Musc Denies abnormal gait, Denies muscle cramps, Denies muscle weakness, Denies numbness, Denies radiating pain into limb and Denies tingling Neuro Denies abnormal gait, Denies dizziness, Denies syncope, Denies numbness, Denies tingling and Denies weakness Endo Denies palpitations Physical Exam Vital Signs: Last Vital Signs Pulse 107 H 04/02/25 13:32 BP 90/60 04/02/25 13:32 BMI result Body Mass Index 26.5 Const General: comfortable and no acute distress Orientation/consciousness: patient oriented x3 HEENT Other: Unremarkable Head: Yes normal to inspection Neck Neck: Yes normal visual inspection Chest Chest palpation & inspection: normal inspection of the chest Resp Auscultation: clear to auscultation bilaterally Cardio Palpation: normal PMI Heart sounds: S1 normal heart sound present, S2 normal heart sound present, no gallops, no murmurs and no rubs GI Palpation (GI): Soft to palpation Back/Spine/Pelvis Other: unremarkable Skin General skin exam: no rashes or lesions noted Neuro General: patient oriented x3 Extrem General: Yes normal to inspection Psych Mental Status: mental status grossly normal Office Procedures Cardiac Device Check Cardiac Device Check Details: ICD interrogated today. Normal lead parameters. No alerts. Tachy episodes in the VT zone could be supraventricular in nature. Overall, normal device function. [id number] Cardiac Device Check, single lead implantable defibrillator Procedure code (CPT) selection complete Assessment & Plan Assessment & Plan (1) Chronic combined systolic and diastolic CHF (congestive heart failure): Code(s): I50.42 - Chronic combined systolic (congestive) and diastolic (congestive) heart failure Category: Medical (2) Alcohol use disorder in remission: Code(s): F10.91 - Alcohol use, unspecified, in remission Category: Medical (3) DMII (diabetes mellitus, type 2): Comment: A1c 11.7% (08/2023) , 8.1% on 12/2023 Code(s): E11.9 - Type 2 diabetes mellitus without complications Category: Medical Qualifiers: Diabetes mellitus complication status: with hyperglycemia Diabetes mellitus machinery rigger insulin use: without alf use Qualified Code(s): E11.65 - Type 2 diabetes mellitus with hyperglycemia (4) ICD (implantable cardioverter-defibrillator) in place: Code(s): Z95.810 - Presence of automatic (implantable) cardiac defibrillator Category: Medical Plan Cardiac studies reviewed. Most recent echocardiogram from 08/2024-LVEF EF 20-25%. Prior to that, variable readings at different times. Has been low for a while but somewhat variable. Myocardial perfusion imaging study from 2023-probably normal perfusion. Gated LVEF was 25% during stress and 33% during rest. Holter 03/2024-underlying rhythm is sinus with an average rate of 103/Min. Frequent sinus tachycardia. In the cardiac MRI, LVEF 23%. Mild intramural delayed enhancement in the mid inferolateral wall, suggesting nonischemic dilated cardiomyopathy. RVEF 32%. 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 Overall, nonischemic cardiomyopathy of unknown etiology. Possible alcohol related but not clear. He has been seen by heart failure team at [facility] and commenced on Entresto and spironolactone. Today's blood pressure is lowish but he is not syncopal. He states he has a follow-up appointment as well as lab work coming up with them. Not clear if he will be candidate for advanced therapies if he cannot tolerate GDMT and gets recurrent heart failure. Otherwise, with regard to the ICD, followed remotely. With regard to diabetes, hemoglobin A1c is 8.4%, which indicates less than ideal control. He is on insulin. Previously, with Jardiance he had hypotension/syncope. Discussion Notes During the consult, we discussed the ongoing management strategy focusing on stabilizing the patient's congestive heart failure while considering the side effects of medications on kidney function. The potential complications caused by hypotensive episodes from previous medical regimens were reviewed. The patient is asked to continue current monitoring of his symptoms and was advised on recognizing any changes in condition immediately. The importance of coordinating with a heart failure specialist was reiterated, and scheduling a follow-up with me for the evaluation of current strategies was discussed. The patient confirmed understanding and agreement with this approach, acknowledging the risks, benefits, and necessity of careful symptom observation. Patient was informed and verbally consented to the use of an ambient scribe for clinic note documentation during this visit. Patient Instructions: - Monitor for any changes in symptoms like dizziness or unusual fatigue and report them promptly. - Follow-up with the heart failure specialist as planned. - Keep regular appointments for follow-up care and evaluations. - Report any new symptoms or changes in your condition quickly. - Be aware of signs that require prompt medical attention. - Attend all scheduled appointments for continued management. Coding Level of Care Code Est Pt Level 4 (83703) Complex EM visit Add On G2211 Diagnoses Chronic combined systolic and diastolic CHF (congestive heart failure) I50.42 Alcohol use disorder in remission F10.91 Type 2 diabetes mellitus with hyperglycemia, without long-term current use of insulin E11.65 Diabetes mellitus complication status: with hyperglycemia Diabetes mellitus alf insulin use: without alf use ICD (implantable cardioverter-defibrillator) in place Z95.810 CPT Codes Cardiac Device Check - Cardiac Device 4: [id number] Cardiac Device Check, single lead implantable defibrillator ([id number])
--- OUTSIDE RECORDS SUMMARY | 2025-04-02 14:05 | XMS_ITS | Clinical Summary ---
Author Organization [address] [place] [address] Address [address] [place] [address] Phone Care Team Providers Care Taper Machine Name Role Phone Tomy Cannon Primary Care Provider [phone] Allergies Active Allergy Reactions Criticality Noted Date Comments Metformin 06/14/2024 Medications pioglitazone (ACTOS) 30 mg tablet Take 1 Tablet by mouth daily. Active insulin lispro (HumaLOG Balaji KwikPen U-100) 100 unit/mL HALF-UNIT injection pen Inject into the skin. Active carvediloL (COREG) 3.125 mg tablet Take 1 Tablet by mouth 2 times daily (with meals). Active Encounters Date Type Department Care Team Description 03/22/2025 9:15 AM EDT Office Visit Orthopedic [facility] [address] [phone] Costa Blakely DPM Controlled type 2 diabetes mellitus with diabetic polyneuropathy, without long-term current use of insulin ([facility] V24, CMS/[facility] V28) (Primary Dx); Metatarsalgia of both feet; Callus; Onychomycosis 01/18/2025 9:15 AM EDT Office Visit Orthopedic Surgery [facility] [address] [phone] Costa Blakely DPM Controlled type 2 diabetes mellitus with diabetic polyneuropathy, without long-term current use of insulin (CMS/HCC V24, CMS/HCC V28) (Primary Dx); Metatarsalgia of both feet; Callus; Onychomycosis from Last 3 Months Social History Tobacco [...] - - Weight 90.7 kg (200 lb) 01/18/2025 8:46 AM EDT Height 177.8 cm (5' 10 ) 01/18/2025 8:46 AM EDT Body Mass Index 28.7 01/18/2025 8:46 AM EDT Plan of Treatment Upcoming Encounters Date Type Department Care Team (Late st Contact Info) Description 05/24/2025 10:15 AM EDT Office Visit Orthopedic Surgery - [place] [address] [facility] [address] [place] [phone] Costa Blakely, ELIZABETH [address] [address] Health Maintenance Due Date Last Done Comments Diabetes: Annual GFR (Glomer ular Filtration Rate) 1982 Diabetes: Annual Foot Exam 1992 Diabetes: Annual Retina Eye Exam 1992 DTaP,Tdap,and Td Vaccines (1 - Tdap) 2001 Hepatitis B Vaccines (1 of 3 - 19+ 3-dose series) 2001 Pneumococcal Vaccine: Pediat rics (0 to 5 Years) and At-Risk Patients (6 to 49 Years) (1 of 2 - PCV) 2001 COVID-19 Vaccine (2023-2 5 season) 2024 Cholesterol Screening (Lipid Panel) 05/29/2024 HIV Screening 05/29/2024 Hepatitis C Screening 05/29/2024 Social Influencers of Health Screening 05/29/2024 Depression Screening 08/16/2024 Diabetes: Annual Urine Albumin-Creatinine Ratio (uACR) 09/14/2024 Diabetes: Blood Sugar Contro l Test (HGBA1C) 09/14/2024 Influenza Vaccine (#1) 2025 HIB Vaccines Aged Out No longer [...] patient's age to complete this topic Insurance [facility] Care Teams Taper Machine Relationship Specialty Start Date End Date Tomy Cannon PA [facility] [place] [address] PCP - General 03/15/24
--- OUTSIDE RECORDS SUMMARY | 2025-04-02 14:05 | XMS_ITS ---
Author Name [facility] Organization Unknown Care Team Organization Name Specialty Phone Email Start Date End Da [facility] 2023 [facility] 07/22/2024
== END 2025-04-02 13:45 | disposition home or self-care (01) ==
LOC: HO.HCS 13:12
PROVIDERS: PCP Physician Assistant; Visit Provider Internal Medicine
DX: I50.42 Chronic combined systolic (congestive) and diastolic (congestive) heart failure (principal); F10.91 Alcohol use, unspecified, in remission; E11.65 Type 2 diabetes mellitus with hyperglycemia; Z95.810 Presence of automatic (implantable) cardiac defibrillator
CPT/HCPCS: 93282; 99214

== ENCOUNTER → 2025-04-02 13:11 | Outpatient (BNVA) | payer OTHER, SELFPAY | PROVIDERS: PCP Physician Assistant; Visit Provider Internal Medicine | DX: I50.42 Chronic combined systolic (congestive) and diastolic (congestive) heart failure (principal); F10.91 Alcohol use, unspecified, in remission; E11.65 Type 2 diabetes mellitus with hyperglycemia; Z95.810 Presence of automatic (implantable) cardiac defibrillator | CPT/HCPCS: 99212 ==

== ENCOUNTER 2025-04-10 09:22 | Outpatient (AMB) | payer OTHER, SELFPAY ==
--- NOTE | 2025-04-10 09:31 | A.OFFPC_ITS ---
Vital Signs 04/10/25 09:32 Height 5 ft 10 in Weight 188 lb 4 oz BMI 27.0 BP 120/76 Blood Pressure Location Lt brachial Position Sitting Pulse 96 Pulse Source Pulse Oximeter Temp 97.1 F Temp Source Temporal Artery Scan Pulse Oximetry (%) 98 Oxygen Delivery Method Room Air Intake Visit Reasons: f/u DMII Intake Note: Patient is here to follow up on DM. Qa Specialist Required: No Mathematical Physicist: Not Required per policy Accompanied by: Self / Same As Patient Allergies metformin Adverse Reaction (Intermediate, Verified 04/10/25 09:49) GI side effects Medication List - Last Reconciled 04/10/25 by Tomy Cannon PA-C albuterol sulfate 90 mcg/actuation 1 inh inhalation QID PRN 30 days blood-glucose,blood bank attendant,cont (FreeStyle Elaine 3 [place]) As directed carvedilol 3.125 mg PO BID empagliflozin (Jardiance) 10 mg PO DAILY insulin glargine (Lantus Solostar U-100 Insulin) 24 units subcut BEDTIME insulin lispro 10 units See Protocol subcut TIDAC pen needle, diabetic (BD Lula 2nd Gen Pen Needle) 4 times per day sacubitril-valsartan 24-26 mg (Entresto) 1 tab PO BID spironolactone 25 mg PO DAILY Tobacco use date assessed: 04/10/25 Dental Screening Dental Screen Date: 09/01/24 HPI f/u DMII HPI Details Patient is a 44-year-old male here today for follow-up visit. Patient has a past medical history significant type 2 diabetes, anxiety, Congestive heart failure, GERD. . Congestive heart failure with reduced ejection fraction: HAS BEEN RESTARTED ON MANY OF HIS CARDIAC MEDICATION INCLUDING ENTRESTO SPIRONOLACTONE, CARVEDILOL. Patient has implantable defibrillator in place. . He has underwent a cardiac MRI which continues to show a fairly low ejection fraction. . Unfortunately continues to have sympt oms of dizziness and fatigue specially on exertion likely related to his heart failure. Type 2 diabetes complicated by Diabetic foot ulcer/abscess: Most recent A1c suboptimal above 8. Unfortunately patient's continues glucose monitor has not been covered by his insurance which was helping him significantly with his glycemic control. PLAN: Will increase his long-acting insulin to 24 units for better glycemic co ntrol, he promises to work on a diabetic diet more closely Laboratory Tests 07/30/22 01/13/23 01/26/23 15:17 09:17 16:14 Hgb Creatinine POC Glucose Random Glucose 389 H* Hgb A1c (Clinic) 11.5 H 10.9 H Hemoglobin A1c % C-Reactive Protein 3.15 H B-Natriuretic Pept jazmyn 09/11/23 09/13/23 09/14/23 21:26 19:49 04:30 Hgb Creatinine 0.77 POC Glucose 122 H Random Glucose Hgb A1c (Clinic) Hemoglobin A1c % 11.7 H C-Reactive Protein B-Natriuretic Pept jazmyn 09/14/23 12/14/23 12/15/23 07:27 18:05 06:13 Hgb 13.4 L Creatinine POC Glucose 141 H Random Glucose Hgb A1c (Clinic) Hemoglobin A1c % C-Reactive Protein B-Natriuretic Pept jazmyn 157 H 12/15/23 12/15/23 09/01/24 07:27 11:52 11:09 Hgb Creatinine POC Glucose 239 H 189 H Random Glucose Hgb A1c (Clinic) 7.8 H Hemoglobin A1c % C-Reactive Protein B-Natriuretic Pept jazmyn 01/10/25 15:03 Hgb Creatinine POC Glucose Random Glucose Hgb A1c (Clinic) 8.4 H Hemoglobin A1c % C-Reactive Protein B-Natriuretic Pept jazmyn [facility] Medical History (Updated 04/10/25 @ 09:59 by Tomy Cannon PA-C) ICD (implantable cardioverter-defibrillator) in place Cardiomyopathy HTN (hypertension) DMII (diabetes mellitus, type 2) Cardiomyopathy Foot callus Cellulitis of foot Chronic combined systolic and diastolic CHF (congestive heart failure) Palpitation JOLIE (generalized anxiety disorder) MDD (major depressive disorder), recurrent episode, moderate Diabetic foot ulcer Alcohol use disorder in remission CHF (congestive heart failure) Small bowel obstruction Hx of intestinal obstruction Erectile disorder due to medical condition in male patient (~10/17/24) Knee pain, right Surgical History History of cardiac defibrillator placement Hx of esophagogastroduodenoscopy History of appendectomy History of hernia surgery Family History Mother Diabetes High blood pressure Social History Household Members: Friend(s) Household Members Other:: three kids and Housing: House Do you presently have visiting nurse or other home services: No Alcohol intake: former Year quit: 2023 Comment: pt uses call cole when he needs assistance Patient Tobacco Use Status: Never used Tobacco Tobacco use type: Cigarette e-Cigarette/Vaping Use: Never Used Second Hand Smoke Exposure: No Advance Directives Date on File: 12/16/23 service: No Current occupational status: disabled Current occupation: right handed Cognitive needs: No Hearing needs: No Vision needs: No Questionnaire Thrive Questionnaire Date Thrive assessed: 01/10/25 I am a: Patient What is your living situation today?: I have a place to live, but I am worried about losing it in the future Within the past 12 months, did the food you bought not last and you didn't have the money to get more?: Sometimes True Within the past 12 months, did you worry whether your food would run out before you got money to buy more?: Sometimes True Do you have trouble paying for medicines?: Yes Do you have trouble getting transportation to medical appointments?: No Do you have trouble paying your heating and electricity bill?: No Do you have trouble taking care of your child, family member or friend?: No Do you have trouble with day-to-day activities such as bathing, preparing meals, shopping, managing finances, etc.?: Yes Are you currently unemployed and looking for a job?: I choose not to answer this question Are you interested in more education?: No Please select the resources that you would like help with: Care for elder or disabled Currently or been in a relationship where the following occur: I choose not to answer THRIVE Score: 3 JOLIE-7 AMB Questionnaire JOLIE-7 Date JOLIE - 7 assessed: 01/10/25 Source: Developed by Drs. Josh Nava, Shelby Peres, Manuel Lloyd and colleagues, with an educational zaid from [employer]. Review of Systems Const Denies headache(s) Eyes Denies loss of vision ENT Denies vertigo, Denies dizziness, Denies headache(s) and Denies sore throat Card Denies chest pain, Denies leg edema and Denies lightheadedness Resp Denies cough, Denies hemoptysis and Denies wheezing GI Denies abdominal pain, Denies melena, Denies constipation, Denies diarrhea and Denies vomiting Denies dysuria, Denies urinary frequency and Denies urinary urgency Musc Denies arthralgias, Denies joint swelling, Denies numbness and Denies tingling Neuro Denies Abnormal speech present, Denies behavioral changes, Denies vertigo, Denies dizziness, Denies headache(s), Denies loss of vision, Denies memory loss, Denies numbness and Denies tingling Psych Denies anxiety, Denies behavioral changes, Denies depression, Denies memory loss and Denies panic attacks Srinivas/Lymph Denies easy bleeding and Denies easy bruising Aller/Immun Denies wheezing Physical exam (Primary Care) Vital Signs: Last Vital Signs Temp 97.1 F 04/10/25 09:32 Pulse 96 04/10/25 09:32 BP 120/76 04/10/25 09:32 Pulse Ox 98 04/10/25 09:32 Oxygen Delivery Method Room Air 04/10/25 09:32 BMI result Body Mass Index 27.0 Tobacco/Smoking Status: Tobacco use Status Tobacco use date assessed 04/10/25 04/10/25 09:40 Patient Tobacco Use Status Never used Tobacco 04/10/25 09:31 Tobacco use type Cigarette 04/10/25 09:31 e-Cigarette/Vaping Use Never Used 04/10/25 09:31 Thrive Assessment: Date of Thrive Assessment Date Thrive assessed 01/10/25 04/10/25 09:31 Currently or been in a relationship where the following occur: I choose not to answer Const General: healthy appearing, no acute distress, alert and awake Nutritional Appearance: well nourished Orientation/consciousness: oriented to person, oriented to place and oriented to time [facility] Ears: TM's normal bilaterally General nose exam: Normal nasal mucous membranes and turbinates present Eyes Conjunctivae: conjunctivae normal Sclerae: sclerae normal Pupils: Equal, round and reactive pupils present Neck Neck: Yes no lymphadenopathy and Yes no JVD Thyroid: Thyroid normal Carotids: no bruits Resp Effort & Inspection: normal respiratory effort and not tachypneic Auscultation: no crackles, no rales, no rhonchi and no wheezes Cardio Rate: regular rate Rhythm: regular rhythm Heart sounds: no murmurs and normal S1 and S2 GI Palpation (GI): Soft to palpation, nontender, no hepatomegaly and no splenomegaly Auscultation: normal bowel sounds Skin General skin exam: no rashes or lesions noted and dry skin Neuro General: oriented to person, oriented to place and oriented to time Cranial nerves: Yes Equal, round and reactive pupils present Speech: No Abnormal speech present Gait exam (Neuro): Normal gait present Motor exam (neuro): no tremor noted Extrem Right upper extremity: full ROM Left upper extremity: full ROM Right lower extremity: full ROM; no edema Left lower extremity: full ROM; no edema Psych Mental Status: mental status grossly normal Speech and movement: Normal speech and movement present Affect: normal affect Attitude: cooperative Thought process: Normal thought process present Results AMB Hemoglobin A1c AMB Hemoglobin A1c 8.0 % Last Edit by CRISTINE Bhakta on 04/10/25 09:44 Results Reviewed Results Reviewed: Laboratory Last Values Hgb A1c (Clinic) 8.0 % (4.0-6.0) H 04/10/25 09:31 Coding Level of Care Code Est Pt Level 4 (65562) Diagnoses Chronic combined systolic and diastolic CHF (congestive heart failure) I50.42 Type 2 diabetes mellitus with hyperglycemia, without long-term current use of insulin E11.65 Diabetes mellitus complication status: with hyperglycemia Diabetes mellitus extermination inspector insulin use: without alf use Diabetic retinopathy of both eyes associated with type 2 diabetes mellitus E11.319 Erectile disorder N52.9 Assessment & Plan Assessment & Plan (1) Chronic combined systolic and diastolic CHF (congestive heart failure): Code(s): I50.42 - Chronic combined systolic (congestive) and diastolic (congestive) heart failure Category: Medical Plan: As per HPI Mark unfortunately has heart failure with reduced infection fraction secondary to alcohol induced cardiomyopathy. He now has a implanted defibrillator. He was on multiple cardiac medications though caused him to have increased dizziness and orthostatic hypotension. He has restarted most of his cardiac medication with the exception of furosemide. He is now seeing a heart failure specialist at [facility] He is currently unable to work full-time and now on disability, currently asking for CNC WOOD LATHE OPERATOR services to help him with his activities of daily living as he lives on a 2nd floor with only 1 roommate. Will start paperwork to help him get a CNC WOOD LATHE OPERATOR to help him with his activities of daily living (2) DMII (diabetes mellitus, type 2): Comment: A1c 11.7% (08/2023) , 8.1% on 12/2023 Code(s): E11.9 - Type 2 diabetes mellitus without complications Category: Medical Qualifiers: Diabetes mellitus complication status: with hyperglycemia Diabetes mellitus extermination inspector insulin use: without extermination inspector use Qualified Code(s): E11.65 - Type 2 diabetes mellitus with hyperglycemia Plan: Unfortunately patient's type 2 diabetes is suboptimally controlled with most recent A1c above 8. Will increase his Lantus dose to 24 units for better glycemic control. Will try to give him an alternative continues glucose monitor for better management of his glucose. Goal A1c is to be below 7.0 (3) Diabetic retinopathy of both eyes associated with type 2 diabetes mellitus: Code(s): E11.319 - Type 2 diabetes mellitus with unspecified diabetic retinopathy without macular edema Category: Medical Plan: Continues to have blurry vision out of his right eye. Patient reports having diabetic retinopathy in his right eye, has lost follow up with his surgical coder. He needs to be seen by a retina specialist for further treatment on his right eye (4) Erectile disorder: Code(s): N52.9 - Male erectile dysfunction, unspecified Category: Medical Plan: Patient does report being in a new relationship over the last 3-4 months. He admits to erectile dysfunction. Has used Cialis in the past though reports not being as effective. He is willing to try alternative sildenafil before sexual activity. He is interested in seeing a urologist for further evaluation and treatment. Orders: Orders AMB Hemoglobin A1c Today E11.65 - Type 2 diabetes mellitus with hyperglycemia Comprehensive [place]. Panel Fast Today E11.65 - Type 2 diabetes mellitus with hyperglycemia Complete Blood Count no Diff Today E11.65 - Type 2 diabetes mellitus with hyperglycemia Lipid Panel Today I50.9 - Heart failure, unspecified Referrals Ophthalmology Referral E11.319 - Type 2 diabetes mellitus with unspecified diabetic retinopathy without macular edema Urology Referral N52.9 - Male erectile dysfunction, unspecified Medications: New blood-glucose sensor (FreeStyle Elaine 3 Plus Sensor device) As directed 2 ea 6RF E11.65 - Type 2 diabetes mellitus with hyperglycemia sildenafil (Viagra) administer 30 minutes to 4 hours before activity 100 mg PO DAILY 7 tabs 0RF sexual activity 7 days N52.9 - Male erectile dysfunction, unspecified
[2025-04-10 09:32] VITALS: BP 120/76; PULSE 96; TEMP 36.2; O2SAT 98; BMI 27.0
--- OUTSIDE RECORDS SUMMARY | 2025-04-10 09:55 | XMS_ITS | Clinical Summary ---
Author Organization [address] [place] [address] Address [address] [place] [address] Phone Care Team Providers Care Tobacco Packing Machine Operator Name Role Phone Tomy Cannon Primary [...] 03/22/2025 9:15 AM EDT Office Visit Orthopedic [facility] [address] [phone] Costa Blakely DPM Controlled type 2 diabetes mellitus with diabetic polyneuropathy, without long-term current use of insulin ([facility] V24, [facility] V28) (Primary Dx); Metatarsalgia of both feet; Callus; Onychomycosis 01/18/2025 9:15 AM EDT Office Visit Orthopedic Surgery [facility] [address] [phone] Costa Blakely DPM Controlled type 2 diabetes [...] AM EDT Office Visit Orthopedic Surgery - [place] [address] [place] [phone] Costa Blakely DPM [address] [place] [phone] Health Maintenance Due Date Last Done Comments [...] patient's age to complete this topic Insurance [facility] Care Teams Tobacco Packing Machine Operator Relationship Specialty Start Date End Date Tomy Cannon PA [address] [place] [phone] PCP - General 03/15/24
== END 2025-04-10 10:03 | disposition home or self-care (01) ==
LOC: HO.HMCH 09:23
PROVIDERS: PCP Physician Assistant; Visit Provider Physician Assistant
DX: I50.42 Chronic combined systolic (congestive) and diastolic (congestive) heart failure (principal); E11.65 Type 2 diabetes mellitus with hyperglycemia; E11.319 Type 2 diabetes mellitus with unspecified diabetic retinopathy without macular edema; N52.9 Male erectile dysfunction, unspecified

== ENCOUNTER → 2025-04-10 09:22 | Outpatient (BNVA) | payer OTHER, SELFPAY | PROVIDERS: PCP Physician Assistant; Visit Provider Physician Assistant | DX: E11.65 Type 2 diabetes mellitus with hyperglycemia (principal); E11.319 Type 2 diabetes mellitus with unspecified diabetic retinopathy without macular edema; F41.9 Anxiety disorder, unspecified; I50.42 Chronic combined systolic (congestive) and diastolic (congestive) heart failure; K21.9 Gastro-esophageal reflux disease without esophagitis; N52.9 Male erectile dysfunction, unspecified; Z86.31 Personal history of diabetic foot ulcer | CPT/HCPCS: 83036; 99212 ==

== ENCOUNTER → 2025-07-02 11:13 | Outpatient (BNV) | payer OTHER, SELFPAY | PROVIDERS: PCP Physician Assistant; Visit Provider Internal Medicine | DX: Z45.02 Encounter for adjustment and management of automatic implantable cardiac defibrillator (principal) | CPT/HCPCS: 93297 ==

== ENCOUNTER 2025-07-03 09:14 | Outpatient (AMB) | payer OTHER, SELFPAY ==
--- NOTE | 2025-07-03 09:25 | A.OFFVIS_ITS ---
Intake Visit Reasons: erectile dysfunction Intake Note: New Patient is present for Erectile Dysfunction Urology Rx:Sildenafil Blood Thinners:none Imaging completed: none Patient forms : AUA and ED questionnaire given Smoker : no Customer Service Rep Required: No Accompanied by: Self / Same As Patient Allergies metformin Adverse Reaction (Intermediate, Verified 07/03/25 09:26) GI side effects HPI Comments Details: Alin is a pleasant male. He is a patient of Dr. Cannon. He seen for the following urologic conditions - erectile dysfunction in setting of diabetes Progressive Historically had poor diabetic control HbA1c is dropping from 11 to 8 Discussed in backed of diabetes on erectile function Initiate daily tadalafil Continue on demand 100 mg sildenafil Three-month follow-up lab work [facility] Medical History (Updated 07/03/25 @ 10:00 by Floyd Gonsalez MD) ICD (implantable cardioverter-defibrillator) in place Cardiomyopathy HTN (hypertension) DMII (diabetes mellitus, type 2) Cardiomyopathy Foot callus Cellulitis of foot Chronic combined systolic and diastolic CHF (congestive heart failure) Palpitation JOLIE (generalized anxiety disorder) MDD (major depressive disorder), recurrent episode, moderate Diabetic foot ulcer Alcohol use disorder in remission CHF (congestive heart failure) Small bowel obstruction Hx of intestinal obstruction Erectile disorder due to medical condition in male patient (~10/17/24) Knee pain, right Surgical History History of cardiac defibrillator placement Hx of esophagogastroduodenoscopy History of appendectomy History of hernia surgery Family History Mother Diabetes High blood pressure Social History Household Members: Friend(s) Household Members Other:: three kids and Housing: House Do you presently have visiting nurse or other home services: No Alcohol intake: former Year quit: 2023 Comment: pt uses call cole when he needs assistance Patient Tobacco Use Status: Never used Tobacco Tobacco use type: Cigarette e-Cigarette/Vaping Use: Never Used Second Hand Smoke Exposure: No Advance Directives Date on File: 12/16/23 service: No Current occupational status: disabled Current occupation: right handed Cognitive needs: No Hearing needs: No Vision needs: No Review of Systems Const Denies chills and Denies fever(s) Card Reports no additional complaints and Denies syncope Resp Denies cough GI Denies abdominal pain and Denies heartburn Reports as per HPI and Denies change in libido Neuro Denies syncope Psych Denies change in libido Endo Denies change in libido Physical Exam Const General: cooperative, healthy appearing, comfortable and no acute distress Orientation/consciousness: patient oriented x3 HEENT Face and sinus: Yes normal facial exam Mouth: moist mucous membranes Neck Neck: Yes normal visual inspection, Yes full ROM and Yes trachea midline Chest Chest palpation & inspection: normal inspection of the chest Resp Effort & Inspection: normal respiratory effort, able to speak in complete sentences and no respiratory distress GI Inspection: Yes normal to inspection Back/Spine/Pelvis Cervical Spine: normal cervical lordosis Thoracic/Lumbar Spine: thoracic and lumbar spine normal to inspection Skin General skin exam: no rashes or lesions noted Neuro General: patient oriented x3, gait normal, tone normal and moves all extremities Extrem General: Yes normal to inspection and Yes capillary refill normal Results AMB Urinalysis, Automated UA Leukoctes 0 Robert/uL Last Edit by Lynette Watkins [facility] on 07/03/25 09:41 UA Nitrite Negative Last Edit by Lynette Watkins [facility] on 07/03/25 09:41 UA Urobilinogen 0.2 mg/dL Last Edit by Lynette Watkins [facility] on 07/03/25 09:41 UA Protein 100 mg/dL Last Edit by Lynette Watkins [facility] on 07/03/25 09:41 UA pH 6.0 Last Edit by Lynette Watkins [facility] on 07/03/25 09:41 UA Blood 10 Don/uL Last Edit by Lynette Watkins [facility] on 07/03/25 09:41 UA Specific [place] 1.015 Last Edit by Lynette Watkins [facility] on 07/03/25 09:4 1 UA Ketone Negative Last Edit by Lynette Watkins [facility] on 07/03/25 09:41 UA Bilirubin 0 mg/dL Last Edit by Lynette Watkins [facility] on 07/03/25 09:41 UA Glucose 1000 mg/dL Last Edit by Lynette Watkins [facility] on 07/03/25 09:41 Results Reviewed Results Reviewed: Laboratory Last Values Urine pH (Auto) 6.0 07/03/25 09:41 Specific [place] (Auto) 1.015 07/03/25 09:41 Urine Protein (Auto) 100 mg/dL 07/03/25 09:41 Glucose (UA)(Auto) 1000 mg/dL 07/03/25 09:41 Urine Ketones (Auto) Negative 07/03/25 09:41 Urine Blood (Auto) 10 Don/uL 07/03/25 09:41 Urine Nitrite (Auto) Negative 07/03/25 09:41 Urine Bilirubin (Auto) 0 mg/dL 07/03/25 09:41 Urine Urobilinogen (Auto) 0.2 mg/dL 07/03/25 09:41 Leukocyte Esterase (Auto) 0 Robert/uL 07/03/25 09:41 Assessment & Plan Assessment & Plan (1) Erectile dysfunction associated with type 2 diabetes mellitus: Code(s): E11.69 - Type 2 diabetes mellitus with other specified complication; N52.1 - Erectile dysfunction due to diseases classified elsewhere Category: Medical Plan Three-month follow-up lab work Orders: Orders Lutenizing Hormone 10 Weeks . - Type 2 diabetes mellitus with other specified complication, N52.1 - Erectile dysfunction due to diseases classified elsewhere Testosterone, Free/Total 10 Weeks - Type 2 diabetes mellitus with other specified complication, N52.1 - Erectile dysfunction due to diseases classified elsewhere Medications: New tadalafil [id number] [facility] Member [id number] 5 mg PO DAILY 90 tabs 0RF sexual activity 90 days E11.69 - Type 2 diabetes mellitus with other specified complication, N52.1 - Erectile dysfunction due to diseases classified elsewhere sildenafil administer 60 minutes before intended activity [id number] [facility] Member [id number] - 100 mg PO 1XD PRN 30 tabs 0RF sexual activity 30 days E11.69 - Type 2 diabetes mellitus with other specified complication, N52.1 - Erectile dysfunction due to diseases classified elsewhere Patient Instructions: This note is constructed using voice recognition software. While every effort has been made to ensure accuracy prior authorization nurse errors may have been included. Imaging studies, laboratory and physical exam results were discussed and reviewed in detail. No major barriers to patient understanding were identified. An opportunity to ask questions regarding the treatment plan was provided. All questions were answered. The patient expressed understanding and agreement with the above treatment plan. The patient is aware they should contact our office by phone for worsening of their current condition or the appearance of new urologic symptoms. Compliance is encouraged with any medications and followup testing that is ordered. It is a privilege to participate in the urologic care of your patient. If you have any questions or concerns regarding treatment for the above conditions, or other urologic issues, please do not hesitate to contact me. The office tele phone contact is [phone]. Sincerely, Dr Floyd Gonsalez MD, [facility] - Urology Compassionate Specialist Care for the Genitourinary System Coding Level of Care Code New Pt Level 4 (87466) Diagnoses Erectile dysfunction associated with type 2 diabetes mellitus E11.69; N52.1
== END 2025-07-03 10:13 | disposition home or self-care (01) ==
LOC: HO.HUSH 09:14
PROVIDERS: PCP Physician Assistant; Visit Provider Urology
DX: E11.69 Type 2 diabetes mellitus with other specified complication (principal); N52.1 Erectile dysfunction due to diseases classified elsewhere
CPT/HCPCS: 99204

== ENCOUNTER → 2025-07-03 09:14 | Outpatient (BNVA) | payer OTHER, SELFPAY | PROVIDERS: PCP Physician Assistant; Visit Provider Urology | DX: E11.69 Type 2 diabetes mellitus with other specified complication (principal); N52.1 Erectile dysfunction due to diseases classified elsewhere | CPT/HCPCS: 99202 ==

== ENCOUNTER 2025-07-11 08:39 | Outpatient (AMB) | payer OTHER, SELFPAY ==
--- NOTE | 2025-07-11 08:50 | A.OFFPC_ITS ---
Vital Signs 07/11/25 08:51 Height 5 ft 10 in Weight 196 lb 4 oz BMI 28.2 BP 110/76 Blood Pressure Location Lt brachial Position Sitting Pulse 82 Pulse Source Pulse Oximeter Temp 96.9 F Temp Source Temporal Artery Scan Pulse Oximetry (%) 99 Oxygen Delivery Method Room Air Intake Visit Reasons: Follow-up type 2 diabetes Intake Note: Patient is here to follow up on DM. Car Carder Required: No Associate Designer: Not Required per policy Accompanied by: Self / Same As Patient Allergies metformin Adverse Reaction (Intermediate, Verified 07/11/25 09:11) GI side effects Medication List - Last Reconciled 07/11/25 by Tomy Cannon PA-C albuterol sulfate 90 mcg/actuation 1 inh inhalation QID PRN 30 days blood-glucose sensor (FreeStyle Elaine 3 Plus Sensor device) As directed blood-glucose,pullman clerk,cont (FreeStyle Elaine 3 [place]) As directed carvedilol 50 mg PO BID empagliflozin (Jardiance) 10 mg PO DAILY insulin glargine (Lantus Solostar U-100 Insulin) 30 units subcut BEDTIME insulin lispro 10 units See Protocol subcut TIDAC pen needle, diabetic (BD Lula 2nd Gen Pen Needle) 4 times per day sacubitril-valsartan 24-26 mg (Entresto) 1 tab PO BID sildenafil (Viagra) 100 mg PO DAILY 7 days sildenafil 100 mg PO 1XD PRN 30 days spironolactone 25 mg PO DAILY tadalafil 5 mg PO DAILY 90 days Tobacco use date assessed: 07/11/25 Dental Screening Dental Screen Date: 09/01/24 HPI Follow-up type 2 diabetes HPI Details Patient is a 45-year-old male here today for follow-up visit. Patient has a past medical history significant type 2 diabetes, anxiety, Congestive heart failure, GERD. . Congestive heart failure with reduced ejection fraction: He is followed by [facility] heart failure clinic HAS BEEN RESTARTED ON MANY OF HIS CARDIAC MEDICATION INCLUDING ENTRESTO SPIRONOLACTONE, CARVEDILOL. Patient has implantable defibrillator in place. . He has underwent a cardiac MRI which continues to show a fairly low ejection fraction. . Unfortunately continues to have sympt oms of dizziness and fatigue specially on exertion likely related to his heart failure. He feels he is now stabilized on current medication regime for his systolic heart failure. He has been staying completely away from alcohol. Type 2 diabetes complicated by Diabetic foot ulcer/abscess: Today's A1c improved a bit at 7.9 from 8 Unfortunately patient's continues glucose monitor has not been covered by his insurance which was helping him significantly with his glycemic control. PLAN: Will increase his long-acting insulin for better glycemic control, he promises to work on a diabetic diet more closely [facility] Medical History (Updated 07/11/25 @ 09:27 by Tomy Cannon PA-C) ICD (implantable cardioverter-defibrillator) in place Cardiomyopathy HTN (hypertension) DMII (diabetes mellitus, type 2) Cardiomyopathy Foot callus Cellulitis of foot Chronic combined systolic and diastolic CHF (congestive heart failure) Palpitation JOLIE (generalized anxiety disorder) MDD (major depressive disorder), recurrent episode, moderate Diabetic foot ulcer Alcohol use disorder in remission CHF (congestive heart failure) Small bowel obstruction Hx of intestinal obstruction Erectile disorder due to medical condition in male patient (~10/17/24) Knee pain, right Surgical History History of cardiac defibrillator placement Hx of esophagogastroduodenoscopy History of appendectomy History of hernia surgery Family History Mother Diabetes High blood pressure Social History Household Members: Friend(s) Household Members Other:: three kids and Housing: House Do you presently have visiting nurse or other home services: No Alcohol intake: former Year quit: 2023 Comment: pt uses call cole when he needs assistance Patient Tobacco Use Status: Never used Tobacco Tobacco use type: Cigarette e-Cigarette/Vaping Use: Never Used Second Hand Smoke Exposure: No Advance Directives Date on File: 12/16/23 service: No Current occupational status: disabled Current occupation: right handed Cognitive needs: No Hearing needs: No Vision needs: No Questionnaire Thrive Questionnaire Date Thrive assessed: 01/10/25 I am a: Patient What is your living situation today?: I have a place to live, but I am worried about losing it in the future Within the past 12 months, did the food you bought not last and you didn't have the money to get more?: Sometimes True Within the past 12 months, did you worry whether your food would run out before you got money to buy more?: Sometimes True Do you have trouble paying for medicines?: Yes Do you have trouble getting transportation to medical appointments?: No Do you have trouble paying your heating and electricity bill?: No Do you have trouble taking care of your child, family member or friend?: No Do you have trouble with day-to-day activities such as bathing, preparing meals, shopping, managing finances, etc.?: Yes Are you currently unemployed and looking for a job?: I choose not to answer this question Are you interested in more education?: No Please select the resources that you would like help with: Care for elder or disabled Currently or been in a relationship where the following occur: I choose not to answer THRIVE Score: 3 JOLIE-7 AMB Questionnaire JOLIE-7 Date JOLIE - 7 assessed: 01/10/25 Source: Developed by Drs. Josh Nava, Shelby Peres, Manuel Lloyd and colleagues, with an educational zaid from [employer]. Review of Systems Const Denies headache(s) Eyes Denies loss of vision ENT Denies vertigo, Denies dizziness, Denies headache(s) and Denies sore throat Card Denies chest pain, Denies leg edema and Denies lightheadedness Resp Denies cough, Denies hemoptysis and Denies wheezing GI Denies abdominal pain, Denies melena, Denies constipation, Denies diarrhea and Denies vomiting Denies dysuria, Denies urinary frequency and Denies urinary urgency Musc Denies arthralgias, Denies joint swelling, Denies numbness and Denies tingling Neuro Denies Abnormal speech present, Denies behavioral changes, Denies vertigo, Denies dizziness, Denies headache(s), Denies loss of vision, Denies memory loss, Denies numbness and Denies tingling Psych Denies anxiety, Denies behavioral changes, Denies depression, Denies memory loss and Denies panic attacks Srinivas/Lymph Denies easy bleeding and Denies easy bruising Aller/Immun Denies wheezing Physical exam (Primary Care) Vital Signs: Last Vital Signs Temp 96.9 F 07/11/25 08:51 Pulse 82 07/11/25 08:51 BP 110/76 11/26/25 08:51 Pulse Ox 99 07/11/25 08:51 Oxygen Delivery Method Room Air 07/11/25 08:51 BMI result Body Mass Index 28.2 Tobacco/Smoking Status: Tobacco use Status Tobacco use date assessed 07/11/25 07/11/25 08:59 Patient Tobacco Use Status Never used Tobacco 07/11/25 08:59 Tobacco use type Cigarette 07/11/25 08:59 e-Cigarette/Vaping Use Never Used 07/11/25 08:59 Thrive Assessment: Date of Thrive Assessment Date Thrive assessed 01/10/25 07/11/25 08:59 Currently or been in a relationship where the following occur: I choose not to answer Const General: healthy appearing, no acute distress, alert and awake Nutritional Appearance: well nourished Orientation/consciousness: oriented to person, oriented to place and oriented to time HENMT Ears: TM's normal bilaterally General nose exam: Normal nasal mucous membranes and turbinates present Eyes Conjunctivae: conjunctivae normal Sclerae: sclerae normal Pupils: Equal, round and reactive pupils present Neck Neck: Yes no lymphadenopathy and Yes no JVD Thyroid: Thyroid normal Carotids: no bruits Resp Effort & Inspection: normal respiratory effort and not tachypneic Auscultation: no crackles, no rales, no rhonchi and no wheezes Cardio Rate: regular rate Rhythm: regular rhythm Heart sounds: no murmurs and normal S1 and S2 GI Palpation (GI): Soft to palpation, nontender, no hepatomegaly and no splenomegaly Auscultation: normal bowel sounds Skin General skin exam: no rashes or lesions noted and dry skin Neuro General: oriented to person, oriented to place and oriented to time Cranial nerves: Yes Equal, round and reactive pupils present Speech: No Abnormal speech present Gait exam (Neuro): Normal gait present Motor exam (neuro): no tremor noted Extrem Right upper extremity: full ROM Left upper extremity: full ROM Right lower extremity: full ROM; no edema Left lower extremity: full ROM; no edema Psych Mental Status: mental status grossly normal Speech and movement: Normal speech and movement present Affect: normal affect Attitude: cooperative Thought process: Normal thought process present Office Procedures Flu Questionnaire Does the patient have a severe egg allergy?: No Does the patient have severe life threatening allergies?: No Does the patient have a fever or illness today?: No Has the patient ever had Guillain-Daisy Syndrome?: No Has the patient ever had any past reaction to a flu shot?: No Results AMB Hemoglobin A1c AMB Hemoglobin A1c 7.9 % Last Edit by CRISTINE Bhakta on 07/11/25 09:04 Immunizations Fluarix [id number] (PF) 45 mcg (15 mcg x 3)/0.5 mL IM syringe Performing Provider: Tomy Cannon PA-C [facility] Administered by: Jasmin Gamez CMA on 07/11/25 09:30 Dose Route Admin Location Dispensed Lot Number Expiration Date NDC Offset Press Operator Apprentice 0.5 mL IM Left Deltoid 0.5 mL [id number] 02/12/26 [id number] [employer] VIS Given Date VIS Provided VIS Publication Date 07/11/25 Single Vaccine 24 Eligibility Eligibility Date Funding Source Not [facility] Eligible 07/11/25 Private Results Reviewed Results Reviewed: Laboratory Last Values Hgb A1c (Clinic) 7.9 % (4.0-6.0) H 07/11/25 08:49 Coding Level of Care Code Est Pt Level 4 (48066) Diagnoses Chronic combined systolic and diastolic CHF (congestive heart failure) I50.42 Type 2 diabetes mellitus with hyperglycemia, without long-term current use of insulin E11.65 Diabetes mellitus complication status: with hyperglycemia Diabetes mellitus superintendent container terminal insulin use: without chcf use Primary hypertension I10 Hypertension type: primary hypertension Assessment & Plan Assessment & Plan (1) Chronic combined systolic and diastolic CHF (congestive heart failure): Code(s): I50.42 - Chronic combined systolic (congestive) and diastolic (congestive) heart failure Category: Medical Plan: As per HPI Mark unfortunately has heart failure with reduced infection fraction secondary to alcohol induced cardiomyopathy. He now has a implanted defi brillator. He is now seeing a heart failure specialist at [facility], he is now regulated on medication which includes Entresto, spironolactone and carvedilol. He is unable to work full-time and now on disability, currently asking for [employer] services to help him with his activities of daily living as he lives on a 2nd floor with only 1 roommate. (2) DMII (diabetes mellitus, type 2): Comment: A1c 11.7% (08/2023) , 8.1% on 12/2023 Code(s): E11.9 - Type 2 diabetes mellitus without complications Category: Medical Qualifiers: Diabetes mellitus complication status: with hyperglycemia Diabetes mellitus superintendent container terminal insulin use: without chcf use Qualified Code(s): E11.65 - Type 2 diabetes mellitus with hyperglycemia Plan: Unfortunately patient's type 2 diabetes is suboptimally controlled with A1c now at 7.9 from 8.0. Will increase his Lantus dose to 30 units for better glycemic control. Will try to give him an alternative continues glucose monitor for better management of his glucose. Goal A1c is to be below 7.0 (3) HTN (hypertension): Code(s): I10 - Essential (primary) hypertension Category: Medical Qualifiers: Hypertension type: primary hypertension Qualified Code(s): I10 - Essential (primary) hypertension Plan: Patient's blood pressure acceptable today in office. Will continue current dose of antihypertensive medication with goal blood pressure to be below 140/90 Orders: Orders AMB Hemoglobin A1c Today E11.65 - Type 2 diabetes mellitus with hyperglycemia Influenza [id number] Immunization Today Z23 - Encounter for immunization Medications: Changed From insulin glargine (Lantus Solostar U-100 Insulin) 30 units subcut BEDTIME E11.65 - Type 2 diabetes mellitus with hyperglycemia To insulin glargine (Lantus Solostar U-100 Insulin) 30 units (0.3 mL) subcut BEDTIME 27 mL 3RF 90 days E11.65 - Type 2 diabetes mellitus with hyperglycemia From insulin lispro Breakfast, Lunch and Dinner 10 units See Protocol subcut TIDAC 15 mL 0RF E11.65 - Type 2 diabetes mellitus with hyperglycemia To insulin lispro Breakfast, Lunch and Dinner 10 units See Protocol subcut TIDAC 27 mL 3RF 90 days E11.65 - Type 2 diabetes mellitus with hyperglycemia Refilled blood-glucose sensor (FreeStyle Elaine 3 Plus Sensor device) As directed 6 ea 1RF E11.65 - Type 2 diabetes mellitus with hyperglycemia
[2025-07-11 08:51] VITALS: BP 110/76; PULSE 82; TEMP 36.1; O2SAT 99; BMI 28.2
--- OUTSIDE RECORDS SUMMARY | 2025-07-11 09:03 | XMS_ITS | Clinical Summary ---
Author Organization [address] [place] [address] Address [address] [place] [address] Phone Care Team Providers Care Sand Cleaning Machine Operator Name Role Phone Tomy Cannon [...] Encounters Date Type Department Care Team Description 05/24/2025 10:15 AM EDT Office Visit Orthopedic Surgery - [place] [address] [facility] [address] [place] [address] Costa Blakely DPM Controlled type 2 diabetes mellitus with diabetic polyneuropathy, without long-term current use of insulin ([facility] V24, CMS/HCC V28) (Primary Dx); Metatarsalgia of [...] Care Team (Late st Contact Info) Description 07/26/2025 8:45 AM EST Office Visit Orthopedic Surgery - [place] [address] [facility] [address] [place] [phone] Costa Blakely, DPM [address] [facility] [address] [place] [address] Health Maintenance Due Date Last Done Comments [...] Years) (1 of 2 - PCV) 2001 HPV Vaccines (1 - 3-dose SCD M series) 2009 Cholesterol Screening (Lipid Panel) 05/29/2024 HIV Screening 05/29/2024 Hepatitis C Screening 05/29/2024 Social Influencers of Health Screening 05/29/2024 Depression Screening 08/16/2024 Diabetes: Annual Urine Albumin-Creatinine Ratio (uACR) 09/14/2024 Diabetes: Blood Sugar Contro l Test (HGBA1C) 09/14/2024 COVID-19 Vaccine ( - 2024-2 6 season) 2025 Influenza Vaccine (#1) 2025 RSV Immunization Adult Patie nts (1 - 1-dose 75+ series) 2057 HIB Vaccines Aged Out No longer eligi [...] patient's age to complete this topic Insurance [facility] PLAN Care Teams Sand Cleaning Machine Operator Relationship Specialty Start Date End Date Tomy Cannon PA [facility] [place] [id number] PCP - General 03/15/24
== END 2025-07-11 09:34 | disposition home or self-care (01) ==
LOC: HO.HMCH 08:40
PROVIDERS: PCP Physician Assistant; Visit Provider Physician Assistant
DX: I50.42 Chronic combined systolic (congestive) and diastolic (congestive) heart failure (principal); E11.65 Type 2 diabetes mellitus with hyperglycemia; I10 Essential (primary) hypertension; Z23 Encounter for immunization

== ENCOUNTER → 2025-07-11 08:39 | Outpatient (BNVA) | payer OTHER, SELFPAY | PROVIDERS: PCP Physician Assistant; Visit Provider Physician Assistant | DX: E11.65 Type 2 diabetes mellitus with hyperglycemia (principal); F41.9 Anxiety disorder, unspecified; I11.0 Hypertensive heart disease with heart failure; I50.42 Chronic combined systolic (congestive) and diastolic (congestive) heart failure; Z23 Encounter for immunization | CPT/HCPCS: 83036; 90471; 90656; 99212 ==